=== PATIENT | female | born 1945 | race Caucasian/White ===

== ENCOUNTER 2017-02-20 16:44 | Emergency (ER) | payer MEDICARE, OTHER ==
[~2017-02-20] VITALS: Ht 147.3 cm; Wt 98.0 kg
[~2017-02-20 16:44] MED LIST: /MOXI40TA OR; ACET65TA OR; ALBU0.084 INH; ALBU2TA INH; ALBU83IN IN; ALBUTEROL INHL INH; ALLO50TA PO; ASPI81TA83 OR; BACTDSTA PO; BISO5TAB54 PO; CALC500T49 OR; COLA100C2 OR; DIAZ5TAB OR; DUONSOL IN; HYDR25TA6 OR; HYDR25TAB PO; IPRA2IN INH; MILKSUS OR; MIRA3350 PO; MULTIVIT PO; NORV5TAB OR; OMEP20CA3 PO; PERC7.5T12 PO; PRED20TA OR; PRED20TA PO; PRED20TAB PO; PRED5SOL2 PO; PULM0.5S IN; TESS100C OR; TRAM50TA2 OR; VALI5TAB PO; VITA250T PO; VITA400C29 PO; VITA400C35 PO; VITA50003 PO; VITAMIN D PO
[2017-02-20] MEDS ORDERED: VITA200016 PO (17:10)
[2017-02-20] MEDS ORDERED: NATU400T PO (17:10)
[2017-02-20] MEDS ORDERED: oxygen (17:12)
[2017-02-20] MEDS ORDERED: PERCOCET 5MG/325MG TAB PO ONE (18:00)
[2017-02-20 18:18] LABS: BASO # 0.1 K/mm3 (0.0-0.2); BASO % 0.7 % (0.0-1.0); EOS # 0.6 K/mm3 (0.0-0.50); EOS % 5.3 % (0.0-3.0); LARGE UNSTAINED CELL # 0.1 K/mm3 (0.0-0.4); LARGE UNSTAINED CELL % 1.2 % (0.0-4.0); LYMPH # 1.9 K/mm3 (1.5-4.5); LYMPH % 16.6 % (24.0-44.0); MEAN CORPUSCULAR HEMOGLOBIN 31.6 pg (27.0-33.0); MEAN CORPUSCULAR HGB CONC 33.3 g/dl (32.0-36.5); MEAN CORPUSCULAR VOLUME 94.9 fl (80.0-96.0); MONO # 0.4 K/mm3 (0.0-0.8); MONO % 3.6 % (0.0-5.0); NEUTROPHILS # 8.3 K/mm3 (1.8-7.7); NEUTROPHILS % 72.6 % (36.0-66.0); PLATELET COUNT, AUTOMATED 203 k/mm3 (150-450); WHITE BLOOD COUNT 11.4 K/mm3 (4.0-10.0)
[2017-02-20 18:23] LABS: INR 0.93
[2017-02-20 18:36] LABS: ANION GAP 6 MEQ/L (8-16); BLOOD UREA NITROGEN 22 MG/DL (7-18); CARBON DIOXIDE LEVEL 34 MEQ/L (21-32); CHLORIDE LEVEL 100 MEQ/L (98-107); CREATININE FOR GFR 0.88 MG/DL (0.55-1.02); GLOMERULAR FILTRATION RATE > 60.0 (>39); GLUCOSE, FASTING 120 MG/DL (83-110); POTASSIUM SERUM 3.6 MEQ/L (3.5-5.1); SODIUM LEVEL 140 MEQ/L (136-145); URIC ACID 9.5 MG/DL (2.6-6.0)
--- NOTE | 2017-02-20 18:50 | REPUSA ---
Clinical history: Pain, swelling. Findings: The right common femoral, superficial femoral, popliteal, and other deep venous structures compress normally and demonstrate normal color Doppler flow. Normal venous waveforms with augmentatio n are seen. Impression: No evidence of deep vein thrombosis in the right femoral popliteal venous system.
[2017-02-20 19:08] LABS: ERYTHROCYTE SEDIMENTATION RATE 3 mm/hr (0-30)
[2017-02-20 19:11] VITALS: BP 131/77
[2017-02-20] MEDS ORDERED: PERC5TAB6 PO (19:11)
[2017-02-20] MEDS ORDERED: BACT800T5 PO (19:11)
[2017-02-20] MEDS ORDERED: BACTRIM 160MG/800MG DS TAB PO ONE (19:15)
--- NOTE | 2017-02-20 19:22 | REP ---
Right foot four views: There is diffuse demineralization. There is diffuse soft tissue edema. There is no acute fracture or dislocation. There is mild osteoarthritis of the great toe MTP articulation. There are no unusual calcifications was calcaneal plantar spur. Signed by Stepan Lorenzo MD 02/20/2017 07:13 P
== END 2017-02-20 19:24 | disposition home or self-care (01) ==
LOC: M ED 19:01
DX: L03.031 Cellulitis of right toe (principal); M19.071 Primary osteoarthritis, right ankle and foot; I10 Essential (primary) hypertension; M10.00 Idiopathic gout, unspecified site; J45.909 Unspecified asthma, uncomplicated; G47.33 Obstructive sleep apnea (adult) (pediatric); E11.9 Type 2 diabetes mellitus without complications; E07.9 Disorder of thyroid, unspecified; Z91.040 Latex allergy status; Z79.899 Other long term (current) drug therapy; Z79.82 Long term (current) use of aspirin

== ENCOUNTER → 2017-03-09 | Outpatient (CLI) | payer MEDICARE, OTHER ==
[~2017-03-09] MED LIST changes: +BACT800T5 PO; +NATU400T PO; +PERC5TAB6 PO; +VITA200016 PO; +oxygen
--- NOTE | 2017-03-09 16:26 | REP ---
BILATERAL MAMMOGRAM WITH DIAGNOSTIC MAMMOGRAM RIGHT BREAST: Bilateral mammography performed in the MLO and CC projections. Additional magnification views are performed of the right breast. Comparison made with multiple prior exams, most recently 07/11/2016 mammogram of the right breast and bilateral mammogram 11/11/2015. Fibroglandular pattern is unchanged. There is no new mass. Bilateral calcifications remains stable. There are no suspicious clusters of microcalcifications. IMPRESSION: ACR 2 benign. No new mass or clustered microcalcifications. Fibroglandular pattern is stable and there are course benign appearing calcifications bilaterally, which are stable. Recommend followup mammogram in one year. BI-RADS/ACR category 2 mammogram. Benign finding(s). Routine annual screening mammography (for women over age 40). This mammogram was interpreted with the aid of an FDA-approved computer-aided detection system. The patient states she/he had a clinical breast exam in February 2017. The patient letter being requested is M1 Signed by Stepan Jeffries MD 03/09/2017 05:15 P
== END ==
LOC: M RAD 14:58
PROVIDERS: ATTEND Nurse Practitioner Family
DX: Z12.31 Encounter for screening mammogram for malignant neoplasm of breast (principal); R92.1 Mammographic calcification found on diagnostic imaging of breast

== ENCOUNTER → 2017-03-30 | Outpatient (REF) | payer MEDICARE, OTHER ==
[~2017-03-30] MED LIST changes: +PERC5TAB12 PO; -PERC5TAB6 PO; +VITA1CAP40 PO; -VITA50003 PO
== END ==
LOC: M LAB REF 16:59
PROVIDERS: ATTEND Nurse Practitioner Family
DX: M10.9 Gout, unspecified (principal)

== ENCOUNTER → 2017-04-05 | Outpatient (REF) | payer MEDICARE, OTHER | LOC: M LAB REF 13:20 | PROVIDERS: ATTEND Internal Medicine | DX: L03.115 Cellulitis of right lower limb (principal); M25.572 Pain in left ankle and joints of left foot ==

== ENCOUNTER → 2017-05-23 | Outpatient (REF) | payer MEDICARE, OTHER | LOC: M LAB REF 16:32 | PROVIDERS: ATTEND Internal Medicine | DX: M10.9 Gout, unspecified (principal) ==

== ENCOUNTER → 2017-09-04 | Outpatient (REF) | payer MEDICARE, OTHER ==
[2017-09-04 18:59] LABS: URIC ACID 9.3 MG/DL (2.6-6.0)
== END ==
LOC: M LAB REF 17:24
PROVIDERS: ATTEND Internal Medicine
DX: M10.9 Gout, unspecified (principal)

== ENCOUNTER → 2018-06-06 | Outpatient (CLI) | payer MEDICARE, OTHER | LOC: M WHC 13:21 | DX: Z12.31 Encounter for screening mammogram for malignant neoplasm of breast (principal); M81.0 Age-related osteoporosis without current pathological fracture; M85.851 Other specified disorders of bone density and structure, right thigh; M85.852 Other specified disorders of bone density and structure, left thigh | CPT/HCPCS: 77067 ==

== ENCOUNTER 2018-10-17 13:50 | Emergency (ER) | payer MEDICARE, OTHER ==
[~2018-10-17 13:50] MED LIST changes: -VITA1CAP40 PO; +VITA50005 PO
--- NOTE | 2018-10-17 14:53 | REP ---
Clinical: Tachycardia. Comparison: 01/08/2014. Findings: Stable cardiomegaly and chronic interstitial changes again noted. Trace right basilar atelectasis cannot be excluded. No obvious effusion. No pneumothorax. Skeletal structures intact. Impression: Chronic changes similar to prior examination. Trace right basilar atelectasis cannot be excluded. Electronically Signed by Baltazar Palmer MD 10/17/2018 02:45 P
[2018-10-17 14:54] LABS: HEMATOCRIT 51.8 % (36.0-47.0); HEMOGLOBIN 16.5 g/dl (12.0-15.5); MEAN CORPUSCULAR HEMOGLOBIN 30.7 pg (27.0-33.0); MEAN CORPUSCULAR HGB CONC 31.9 g/dl (32.0-36.5); MEAN CORPUSCULAR VOLUME 96.5 fl (80.0-96.0); PLATELET COUNT, AUTOMATED 204 10^3/uL (150-450); RED BLOOD COUNT 5.37 10^6/uL (4.00-5.40); WHITE BLOOD COUNT 12.1 10^3/uL (4.0-10.0)
[2018-10-17 15:17] LABS: BLOOD UREA NITROGEN 16 MG/DL (7-18); CALCIUM LEVEL 8.7 MG/DL (8.8-10.2); CARBON DIOXIDE LEVEL 33 MEQ/L (21-32); CHLORIDE LEVEL 105 MEQ/L (98-107); CPK CREATINE PHOSPHOKINASE 69 U/L (26-192); CREATININE FOR GFR 0.85 MG/DL (0.55-1.30); GLOMERULAR FILTRATION RATE > 60.0 (>39); GLUCOSE, FASTING 120 MG/DL (70-100); MB/CK RELATIVE INDEX 2.61 (< OR =4); POTASSIUM SERUM 4.3 MEQ/L (3.5-5.1); SODIUM LEVEL 143 MEQ/L (136-145); TROPONIN I < 0.02 NG/ML (< 0.10)
[2018-10-17] MEDS ORDERED: ELIQ5TAB PO (15:53)
[2018-10-17] MEDS ORDERED: APIXABAN 5 MG TAB (ELIQUIS) PO ONE (16:00)
[2018-10-17 17:44] VITALS: BP 146/73
--- NOTE | 2018-10-18 10:17 | ECGEPIP ---
Stationary ECG Study [facility] - ED Test Date: 2018-10-17 Pat Name: ANETA DE SANTIAGO Department: Room: - Gender: F Front Office Coordinator: dany : 1945 Requested By: Jorge Luis oHbbs Order Number: [id number] Reading MD: Albina Dias Measurements Intervals [place] Rate: 94 P: CO: 0 QRS: 103 QRSD: 79 T: -12 QT: 331 QTc: 416 Interpretive Statements ATRIAL FIBRILLATION MARKED RIGHT AXIS DEVIATION LOW QRS VOLTAGE IN PRECORDIAL LEADS NONSPECIFIC T-WAVE ABNORMALITY SIMILAR 09/25/13 Electronically Signed On 10-18-2018 10:17:40 EST by Albina Dias
== END 2018-10-17 17:45 | disposition home or self-care (01) ==
LOC: EDBD 13:50 → M ED 13:50
DX: I48.91 Unspecified atrial fibrillation (principal); F41.9 Anxiety disorder, unspecified; I10 Essential (primary) hypertension; G47.33 Obstructive sleep apnea (adult) (pediatric); E11.9 Type 2 diabetes mellitus without complications; M10.9 Gout, unspecified; F17.210 Nicotine dependence, cigarettes, uncomplicated; Z91.040 Latex allergy status; Z79.899 Other long term (current) drug therapy

== ENCOUNTER 2018-10-20 10:30 | Emergency (ER) | payer MEDICARE, OTHER ==
[~2018-10-20] VITALS: Ht 147.3 cm; Wt 93.3 kg
[~2018-10-20 10:30] MED LIST changes: +ELIQ5TAB PO
[2018-10-20 11:17] LABS: BASO # 0.1 10^3/uL (0.0-0.2); BASO % 0.6 % (0.0-1.0); EOS # 0.5 10^3/uL (0.0-0.50); EOS % 4.2 % (0.0-3.0); HEMATOCRIT 52.1 % (36.0-47.0); LYMPH # 1.9 10^3/uL (1.5-4.5); LYMPH % 16.9 % (24.0-44.0); MEAN CORPUSCULAR HEMOGLOBIN 31.1 pg (27.0-33.0); MEAN CORPUSCULAR HGB CONC 32.6 g/dl (32.0-36.5); MEAN CORPUSCULAR VOLUME 95.4 fl (80.0-96.0); MONO # 0.5 10^3/uL (0.0-0.8); MONO % 4.4 % (0.0-5.0); NEUTROPHILS # 8.1 10^3/uL (1.8-7.7); NEUTROPHILS % 73.6 % (36.0-66.0); PLATELET COUNT, AUTOMATED 195 10^3/uL (150-450); RED BLOOD COUNT 5.46 10^6/uL (4.00-5.40)
[2018-10-20] MEDS ORDERED: ALBUTEROL SULFATE 2.5 MG/0.5 ML INH NEB SOLN NEB ONE (11:30)
[2018-10-20 11:32] LABS: BLOOD UREA NITROGEN 15 MG/DL (7-18); CALCIUM LEVEL 8.7 MG/DL (8.8-10.2); CARBON DIOXIDE LEVEL 31 MEQ/L (21-32); CHLORIDE LEVEL 103 MEQ/L (98-107); CPK CREATINE PHOSPHOKINASE 66 U/L (26-192); CREATININE FOR GFR 1.01 MG/DL (0.55-1.30); GLOMERULAR FILTRATION RATE 56.9 (>39); GLUCOSE, FASTING 160 MG/DL (70-100); MB/CK RELATIVE INDEX 2.73 (< OR =4); POTASSIUM SERUM 3.7 MEQ/L (3.5-5.1); SODIUM LEVEL 140 MEQ/L (136-145); TROPONIN I < 0.02 NG/ML (< 0.10)
--- NOTE | 2018-10-20 12:07 | REP ---
Clinical: Cough and wheeze. Technique: PA and lateral. Comparison: 10/17/2018. Findings: Stable cardiomegaly is appreciated. Previously noted right basilar atelectasis appears to have resolved although new areas of medial right middle lobe and left mid to lower lobe atelectasis are now identified. No effusion. No pneumothorax. Skeletal structures intact. Impression: Right middle lobe and left mid lung zone atelectasis. Electronically Signed by Baltazar Palmer MD 10/20/2018 11:59 A
[2018-10-20] MEDS ORDERED: PERCOCET 5MG/325MG TAB PO ONE (13:00)
[2018-10-20] MEDS ORDERED: METO1TAB87 PO (14:14)
[2018-10-20 14:29] VITALS: BP 144/92
[2018-10-20] MEDS ORDERED: METOPROLOL TART 25 MG TABLET PO ONE (14:30)
[2018-10-20 14:52] LABS: FERRITIN 38 NG/ML (8-252)
[2018-10-20 15:44] VITALS: BP 130/90
--- NOTE | 2018-10-21 07:20 | ECGEPIP ---
Stationary ECG Study [facility] - ED Test Date: 2018-10-20 Pat Name: ANETA DE SANTIAGO Department: Room: - Gender: F Corn Breeder: BEATRIZ : 1945 Requested By: Albina Dias Order Number: [id number] Reading MD: Albina Dias Measurements Intervals [place] Rate: 96 P: IA: 0 QRS: 105 QRSD: 81 T: -5 QT: 346 QTc: 439 Interpretive Statements ATRIAL FIBRILLATION MARKED RIGHT AXIS DEVIATION NONSPECIFIC T-WAVE ABNORMALITY SIMILAR 10/17/18 Electronically Signed On 10-21-2018 7:20:36 EST by Albina Dias
== END 2018-10-20 15:46 | disposition home or self-care (01) ==
LOC: M ED 10:30
DX: I48.91 Unspecified atrial fibrillation (principal); E11.9 Type 2 diabetes mellitus without complications; I10 Essential (primary) hypertension; J44.9 Chronic obstructive pulmonary disease, unspecified; Z91.040 Latex allergy status; Z79.899 Other long term (current) drug therapy

== ENCOUNTER → 2018-12-12 | Outpatient (REF) | payer MEDICARE, OTHER ==
[~2018-12-12] MED LIST changes: +ALBU2TA PO; +ALBU83IN INH; +ASCO25TA PO; +HYDR12.55 PO; +METO1TAB87 PO
--- NOTE | 2018-12-12 20:15 | CR ---
DATE OF CONSULTATION: 12/12/[address] Polanco for hysteroscopy, dilatation and curettage 12/20/[address] [facility] ([facility]). Dear Dr. Polanco, Thank you for asking me to see Ms. Aracelis Pollard in preoperative consultation prior to her hysteroscopy and dilatation and curettage. Ms. Pollard is a 73-year-old female with recent diagnosis of atrial fibrillation with longstanding history of anxiety, osteoarthritis, presenting for preoperative consultation. The patient reports that she is in constant full body pain, fatigue, hot alternating with cold. She reports this is not a change. She questions whether it could be related to some of her medications. The patient had recent diagnosis of atrial fibrillation. She is tolerating Eliquis without issue. She denies chest pain or palpitations. She is quite inactive because of her advanced osteoarthritis. The patient has known chronic obstructive pulmonary disease (COPD). Uses ProAir and albuterol as needed. Usually takes it every morning. Patient has anxieties, treated with diazepam 5 mg three times a day. The patient has osteoarthritis and uses Percocet, averaging two to three a day. The patient has hypertension and reports compliance with hydrochlorothiazide The patient reports recent bouts of diverticulitis requiring antibiotic therapy. The patient otherwise denies fevers or chills, chest pain or shortness of breath, nausea, vomiting, change in bowels. PAST MEDICAL HISTORY: 1. Atrial fibrillation, status post echo 11/08/2018, showing no significant valvular disease but bilateral atrial enlargement. 2. Generalized anxiety disorder. 3. Vitamin D deficiency. 4. Allergic rhinitis. 5. Osteoarthritis (OA), degenerative joint disease (DJD). 6. Hypertension. 7. COPD. 8. Osteoporosis. 9. Obesity. 10. Tobacco abuse. 11. Prediabetes. 12. Left ankle fracture in 1975. 13. Left hand fracture in 1995. 14. Umbilical herniorrhaphy. 15. Status post appendectomy. 16. Bilateral carpal tunnel repair. 17. Benign neck tumor excision times two. 18. Bilateral tubal ligation. MEDICATIONS: - albuterol nebulizer as needed - gentle laxative daily - diazepam 5 mg three times a day - Eliquis 5 mg twice a day - hydrochlorothiazide 25 mg daily - magnesium 500 mg daily - metoprolol tartrate 25 mg two times a day - oxycodone/acetaminophen 7.5 mg three times a day as needed - ProAir as needed - stool softener as needed - vitamin C daily - vitamin D3 at 2000 international units daily - vitamin E at 400 international units daily - Zovirax as needed DRUG ALLERGIES: BREO ELLIPTA and Latex. 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 . Four sons, two in the area. Enjoys reading, baking, cooking. Current smoker. Denies alcohol use. PHYSICAL EXAMINATION: Obese female in no acute distress. VITAL SIGNS: Weight 200 pounds with a body mass index (BMI) 42. Her oxygen saturation is 89% after exertion, 92% at rest, blood pressure 132/80. HEENT: Head is normocephalic. Pupils equal, reactive to light. Extraocular movements are intact. Tympanic membranes slightly dull, scant amount of cerumen. Posterior pharynx without inflammation. Neck is supple. No thyromegaly, jugular venous distention (JVD), or carotid bruits. RESPIRATORY: Coarse breath sounds. No expiratory wheezes. BREASTS: Deferred. CARDIOVASCULAR: Irregularly irregular. Soft systolic murmur. ABDOMEN: Protuberant, soft, nontender. EXTREMITIES: Arthritic but no cyanosis, clubbing, or edema. DERMATOLOGIC: Intact. NEUROLOGIC: Alert and oriented. LABORATORY DATA: EKG today shows atrial fibrillation, rate controlled at 80, axis of 90. Normal QRS, QTC. LABORATORY DATA: Shows uric acid of 8.5. A CBC with a white count of 11.7, hemoglobin of 17, platelet count of 216. A1c of 6.1. Magnesium of 1.6. Otherwise normal metabolic profile, electrolytes. Normal liver panel, thyroid. FAMILY HISTORY: Father father had hypertension and kidney failure. Mother had lung cancer. Siblings alive and well. IMPRESSION: Ms. Aracelis Pollard is a 73-year-old female with multiple cardiovascular risk factors, including hypertension, hyperglycemia, atrial fibrillation, obesity. Has no signs or symptoms indicative of cardiovascular ischemia and is felt to be at low risk for cardiovascular complications and is optimized for the proposed surgical intervention. Risks can be further minimized by the following. 1. Paroxysmal atrial fibrillation. Hold Eliquis 48 hours before surgery. Take metoprolol morning of surgery. 2. Generalized anxiety disorder. Take diazepam as usual morning of surgery. 3. Osteoarthritis (OA), degenerative joint disease (DJD). Take Percocet as usual morning of surgery. 4. Chronic obstructive pulmonary disease (COPD) Take albuterol nebulizer morning of surgery. 5. Hypertension. Hold hydrochlorothiazide morning of surgery 6. Prediabetes. Dietary advice given. Adequately controlled with an A1c of 6.1. 7. Vitamin D deficiency. Hold morning of surgery. 8. Obesity. Dietary advice discussed. 9. Nicotine abuse. Cessation discussed. 10. Hypomagnesemia. Will confirm compliance with magnesium disorder and give dietary advice. 11. Gout. Discuss in outpatient at next visit in December. Thank you very much for this consultation. Please call with any questions or concerns.
== END ==
LOC: M LAB REF 16:36
PROVIDERS: ATTEND Internal Medicine
DX: M10.9 Gout, unspecified (principal)

== ENCOUNTER 2018-12-20 11:19 | Day surgery (SDC) | payer MEDICARE, OTHER ==
[~2018-12-20] VITALS: Ht 147.3 cm; Wt 75.3 kg
[~2018-12-20 11:19] MED LIST changes: -/MOXI40TA OR; -ASCO25TA PO; +AVEL1TAB2 OR; -BACTDSTA PO; +HYDR-2541 PO; -HYDR25TAB PO; +SULF1TAB23 PO; +VITA1TAB23 PO
[2018-12-20] MEDS: LR 1,000 ML IV SCH ×2 (11:25→12:25)
[2018-12-20] MEDS ORDERED: PROAAER10 INH (12:45)
[2018-12-20] MEDS ORDERED: dexameTHASONE 4 MG/ML 1ML VIAL (J1100) As Ordered ONE (14:00)
[2018-12-20] MEDS ORDERED: fentaNYL 100 MCG/2 ML INJECTION (J3010) As Ordered ONE (14:00)
[2018-12-20] MEDS ORDERED: MIDAZOLAM INJ 2 MG/2 ML VIAL (J2250) As Ordered ONE (14:00)
[2018-12-20] MEDS ORDERED: METOCLOPRAMIDE INJ 10MG/2ML VIAL (J2765) As Ordered ONE (14:00)
[2018-12-20] MEDS ORDERED: LIDOCAINE 2% INJ 100 MG/5 ML SDV (FOR ANES.) As Ordered ONE (14:00)
[2018-12-20] MEDS ORDERED: PROPOFOL 200 MG/20 ML VIAL As Ordered ONE (14:00)
[2018-12-20] MEDS ORDERED: ONDANSETRON 4MG/2ML VIAL (J2405) As Ordered ONE (14:00)
[2018-12-20] MEDS: PERCOCET 5MG/325MG TAB PO PRN ×2 (14:45→15:20)
[2018-12-20] MEDS ORDERED: PERCOCET 5MG/325MG TAB As Ordered ONE (14:45)
[2018-12-20] MEDS ORDERED: KETOROLAC 30 MG/ML VIAL (J1885) As Ordered ONE (14:45)
[2018-12-20] MEDS ORDERED: LR 1,000 ML IV SCH ×2 (15:00)
[2018-12-20] MEDS ORDERED: KETOROLAC 30 MG/ML VIAL (J1885) IV PRN (15:00)
[2018-12-20] MEDS ORDERED: ONDANSETRON 4MG/2ML VIAL (J2405) IV PRN (15:00)
[2018-12-20] MEDS ORDERED: fentaNYL 100 MCG/2 ML INJECTION (J3010) IV PRN (15:00)
[2018-12-20] MEDS ORDERED: DESFLURANE 240 ML INHALANT As Ordered ONE (15:09)
--- NOTE | 2018-12-20 17:09 | RO ---
DATE OF PROCEDURE: 12/20/2018 PREOPERATIVE DIAGNOSIS: Thickened endometrium, abnormal ultrasound. POSTOPERATIVE DIAGNOSIS: Thickened endometrium, abnormal ultrasound. PROCEDURE: Dilation and curettage (D and C), hysteroscopy and MyoSure resection. SURGEON: Dr. Tamera Polanco FEDERAL MEDIATION COMMISSIONER: None. ANESTHESIA: LMA. DESCRIPTION OF PROCEDURE: Aracelis was brought to the operating room where sufficient LMA anesthesia was induced, and she was prepped, draped and positioned in the usual sterile fashion and then a stenotic cervix was noted. She had small nabothian cysts in the cervix but then some cervical stenosis, we could not pass the sound, so we worked with the smaller dilators until we had carefully dilated the cervix and then some mucousy-brownish discharge was released, and we entered into the endometrium with the dilators and continued dilating until we could place the hysteroscope and most of the lining looked fairly atrophic. There were a couple of little cholesterol deposits, but there were also one or two more vesicular mucous lesions, did not look like a lot of overgrowth and you certainly can see that when it is just under pressure from obstruction, but also this could have been mucous-producing lesion, so went ahead and took the MyoSure light and made sure we sampled all of that and removed those and sent them with the pathology so that we could be sure that we had good sampling. We then also passed the curette. The contour itself showed some evidence possibly of a little bit of scarring but otherwise normal endometrial contour, normal tubal ostia and the pictures were taken to document the fairly minor findings, but given the mucus discharge and the abnormal sonographic findings, we went ahead and aggressively sampled all of this and made sure we had good sampling and pictures to show also that all that had been removed and we sent all of that to the pathologist for evaluation. After the MyoSure resection and curettage, the procedure was ended. Estimated blood loss for the procedure was 2 mL. Fluid replacement: Crystalloid. Complications: None. Condition and Disposition: Aracelis tolerated the procedure well and was recovering in the recovery room in good condition.
[2018-12-20 17:48] VITALS: BP 129/58
[2018-12-20] MEDS ORDERED: IBUPROFEN 600 MG TAB PO PRN (21:00)
== END 2018-12-20 17:48 | disposition home or self-care (01) ==
LOC: M SDC 11:19
PROVIDERS: ATTEND Obstetrics & Gynecology
DX: N84.0 Polyp of corpus uteri (principal); N88.8 Other specified noninflammatory disorders of cervix uteri; Z91.040 Latex allergy status; Z88.8 Allergy status to other drugs, medicaments and biological substances
CPT/HCPCS: 58558; 88304; J1100; J1885; J2250; J2405; J2765; J3010

== ENCOUNTER 2020-02-23 14:40 | Emergency (ER) | payer MEDICARE, OTHER ==
[~2020-02-23] VITALS: Ht 147.3 cm; Wt 90.0 kg
[~2020-02-23 14:40] MED LIST changes: -ALBU83IN INH; +ALBU83IN NEB; +ASCO250T20 PO; +PROAAER10 INH; -VITA1TAB23 PO
[2020-02-23 16:25] LABS: BASO # 0.1 10^3/uL (0.0-0.2); BASO % 0.4 % (0.0-1.0); EOS # 0.2 10^3/uL (0.0-0.5); EOS % 1.3 % (0.0-3.0); HEMATOCRIT 44.2 % (36.0-47.0); HEMOGLOBIN 13.6 g/dl (12.0-15.5); LYMPH # 1.2 10^3/uL (1.5-5.0); LYMPH % 9.1 % (24.0-44.0); MEAN CORPUSCULAR HEMOGLOBIN 30.8 pg (27.0-33.0); MEAN CORPUSCULAR HGB CONC 30.8 g/dl (32.0-36.5); MEAN CORPUSCULAR VOLUME 100.2 fl (80.0-96.0); MONO # 0.9 10^3/uL (0.0-0.8); MONO % 6.6 % (0.0-5.0); NEUTROPHILS # 10.7 10^3/uL (1.5-8.5); NEUTROPHILS % 82.2 % (36.0-66.0); PLATELET COUNT, AUTOMATED 183 10^3/uL (150-450); RED BLOOD COUNT 4.41 10^6/uL (4.00-5.40)
[2020-02-23 16:45] LABS: ERYTHROCYTE SEDIMENTATION RATE 25 mm/hr (0-30)
[2020-02-23 16:51] LABS: BLOOD UREA NITROGEN 17 MG/DL (7-18); C REACTIVE PROTEIN QUANTITATIV 4.54 MG/DL (0.00-0.30); CALCIUM LEVEL 8.2 MG/DL (8.8-10.2); CARBON DIOXIDE LEVEL 39 MEQ/L (21-32); CHLORIDE LEVEL 101 MEQ/L (98-107); CREATININE FOR GFR 0.62 MG/DL (0.55-1.30); GLOMERULAR FILTRATION RATE > 60.0 (>39); GLUCOSE, FASTING 103 MG/DL (70-100); POTASSIUM SERUM 3.8 MEQ/L (3.5-5.1); SODIUM LEVEL 144 MEQ/L (136-145); URIC ACID 7.8 MG/DL (2.6-6.0)
[2020-02-23] MEDS ORDERED: predniSONE 20 MG TAB PO ONE (17:15)
[2020-02-23] MEDS ORDERED: PRED20TA PO (17:29)
[2020-02-23 17:54] VITALS: BP 156/73
--- NOTE | 2020-02-24 13:17 | REP ---
DEEP VENOUS ULTRASOUND LEFT UPPER EXTREMITY: REASON: Pain and swelling. Preliminary report given by Dr. Palmer. TECHNIQUE: Multiple ultrasonographic images of the deep venous structures of the left upper extremity were obtained to rule out deep venous thrombosis. FINDINGS: There is no abnormal echogenic material seen in any of the visualized deep venous structures of the left upper extremity. Coaptation where applicable is appropriate throughout. Augmentation shows an expected response throughout. IMPRESSION: Negative exam. Electronically Signed by Alok Killian DO 02/24/2020 03:18 P
--- NOTE | 2020-02-24 16:31 | REP ---
REASON: Left hand pain and swelling, no trauma. Preliminary report given by Dr. Palmer. The bones are demineralized. Degenerative changes are seen throughout the hand and wrist. There is evidence of diffuse soft tissue swelling, however, I do not know the patient's body habitus. I see no evidence of an acute fracture. IMPRESSION: Degenerative changes seen involving the hand and particularly the wrist without evidence of an acute fracture. Other findings as described above. Electronically Signed by Alok Killian DO 02/24/2020 05:06 P
[2020-10-18] MEDS ORDERED: HYDR-3490 PO (03:03)
== END 2020-02-23 17:56 | disposition home or self-care (01) ==
LOC: M ED 14:40
DX: M19.042 Primary osteoarthritis, left hand (principal); M79.89 Other specified soft tissue disorders; I48.91 Unspecified atrial fibrillation; E11.9 Type 2 diabetes mellitus without complications; I10 Essential (primary) hypertension; J44.9 Chronic obstructive pulmonary disease, unspecified; G47.33 Obstructive sleep apnea (adult) (pediatric); E55.9 Vitamin D deficiency, unspecified; M10.9 Gout, unspecified; F41.9 Anxiety disorder, unspecified; E66.9 Obesity, unspecified; Z68.41 Body mass index [BMI] 40.0-44.9, adult; M81.0 Age-related osteoporosis without current pathological fracture; Z91.040 Latex allergy status; Z91.048 Other nonmedicinal substance allergy status; Z79.899 Other long term (current) drug therapy; Z79.01 Long term (current) use of anticoagulants

== ENCOUNTER 2020-05-27 07:02 | Inpatient (IN) | payer MEDICARE, OTHER ==
[~2020-05-27] VITALS: Ht 147.3 cm; Wt 85.1 kg
[2020-05-27] MEDS ORDERED: methylPREDNISolone 125MG 2ML VIAL IV ONE (07:45)
[2020-05-27] MEDS ORDERED: COMBIVENT RESPIMAT 100-20MCG INHALER 4GM INH ONE ×2 (08:00→09:00)
[2020-05-27 08:03] LABS: BASO # 0.1 10^3/uL (0.0-0.2); BASO % 0.4 % (0.0-1.0); EOS # 0.2 10^3/uL (0.0-0.5); EOS % 1.3 % (0.0-3.0); HEMATOCRIT 43.7 % (36.0-47.0); HEMOGLOBIN 13.5 g/dl (12.0-15.5); LYMPH # 1.1 10^3/uL (1.5-5.0); LYMPH % 9.5 % (24.0-44.0); MEAN CORPUSCULAR HEMOGLOBIN 31.3 pg (27.0-33.0); MEAN CORPUSCULAR HGB CONC 30.9 g/dl (32.0-36.5); MEAN CORPUSCULAR VOLUME 101.4 fl (80.0-96.0); MONO # 0.6 10^3/uL (0.0-0.8); MONO % 4.9 % (0.0-5.0); NEUTROPHILS # 9.8 10^3/uL (1.5-8.5); NEUTROPHILS % 83.4 % (36.0-66.0); PLATELET COUNT, AUTOMATED 181 10^3/uL (150-450); RED BLOOD COUNT 4.31 10^6/uL (4.00-5.40); WHITE BLOOD COUNT 11.7 10^3/uL (4.0-10.0)
[2020-05-27 08:07] LABS: ABG BASE EXCESS 7.9 (-2.0-2.0); ABG HCO3 34.6 MEQ/L (22.0-26.0); ABG O2 SATURATION 98.9 % (95.0-99.0); ABG PARTIAL PRESSURE CO2 56.9 mmHg (35.0-45.0); ABG PARTIAL PRESSURE O2 131.8 mmHg (75.0-100.0); ABG STANDARD HCO3 31.8 MEQ/L (22.0-26.0); ABG TOTAL CO2 36.4 MEQ/L (23.0-31.0); ABG pH (ARTERIAL) 7.402 UNITS (7.350-7.450)
[2020-05-27 08:14] LABS: INR 1.28; PROTHROMBIN TIME 16.2 SECONDS (11.8-14.0)
--- NOTE | 2020-05-27 08:16 | REPVR ---
PROCEDURE INFORMATION: Exam: XR Chest, 1 View Exam date and time: 05/27/2020 7:19 AM Age: 75 years old Clinical indication: Shortness of breath; Additional info: Dyspnea/cough TECHNIQUE: Imaging protocol: XR of the chest Views: 1 view. COMPARISON: CR Chest, 2 view PA, Lat 10/20/2018 11:49 AM FINDINGS: Lungs: Mild pulmonary vascular congestion. Band of subsegmental atelectasis/scar within the left mid lung. Increasing hazy ground-glass and ill-defined opacity at the lung bases which may represent edema, atelectasis and/or pneumonia. Pleural space: Small bilateral pleural effusions. No pneumothorax. Heart/Mediastinum: Stable cardiomegaly. Thoracic atherosclerosis. Bones/joints: Bones are stable. Osteopenia. Degenerative changes. IMPRESSION: 1. Cardiomegaly with pulmonary vascular congestion and small bilateral pleural effusions suggesting CHF. 2. Increasing hazy ground-glass and ill-defined opacity at the lung bases may represent edema, atelectasis and/or pneumonia. Electronically signed by: Baltazar Berumen On 05/27/2020 08:15:44 AM
[2020-05-27] MEDS ORDERED: FUROSEMIDE 40MG/4ML VIAL (J1940) IV ONE (08:30)
[2020-05-27] MEDS ORDERED: PERCOCET 5MG/325MG TAB PO ONE (08:30)
[2020-05-27 08:32] LABS: ALBUMIN 3.3 GM/DL (3.2-5.2); ALT/SGPT 11 U/L (12-78); BILIRUBIN,DIRECT 0.4 MG/DL (0.0-0.2); BILIRUBIN,TOTAL 1.1 MG/DL (0.2-1.0); BLOOD UREA NITROGEN 15 MG/DL (7-18); CARBON DIOXIDE LEVEL 42 MEQ/L (21-32); CHLORIDE LEVEL 98 MEQ/L (98-107); CK-MB VALUE MASS 1.1 NG/ML (<3.6); CPK CREATINE PHOSPHOKINASE 32 U/L (26-192); CREATININE FOR GFR 0.69 MG/DL (0.55-1.30); GLOMERULAR FILTRATION RATE > 60.0 (>39); GLUCOSE, FASTING 118 MG/DL (70-100); MB/CK RELATIVE INDEX 3.44 (< OR =4); NT-PRO BNP 2410 PG/ML (<450); POTASSIUM SERUM 3.8 MEQ/L (3.5-5.1); SODIUM LEVEL 142 MEQ/L (136-145); TOTAL PROTEIN 6.5 GM/DL (6.4-8.2); TROPONIN I < 0.02 NG/ML (< 0.10)
[2020-05-27] MEDS: METOPROLOL TART 25 MG TABLET PO SCH ×2 (09:00→20:28)
[2020-05-27] MEDS ORDERED: METOPROLOL TART 25 MG TABLET PO ONE (09:15)
[2020-05-27] MEDS ORDERED: METO1TAB87 PO (09:35)
[2020-05-27] MEDS ORDERED: PERC7.5T11 PO (09:35)
[2020-05-27] MEDS ORDERED: ASCO500T PO (09:35)
[2020-05-27] MEDS ORDERED: VITA400C53 PO (09:35)
[2020-05-27] MEDS ORDERED: D31000TA2 PO (09:35)
[2020-05-27] MEDS ORDERED: ELIQ5TAB PO (09:35)
[2020-05-27] MEDS ORDERED: MAGN400C2 PO (09:44)
[2020-05-27] MEDS ORDERED: IPRATROPIUM 0.5MG/ALBUTEROL 2.5MG INH SOL UD 3ML (DUONEB) NEB PRN (11:30)
--- NOTE | 2020-05-27 11:52 | HPEPDOC ---
[facility] Medical History & Physical Date of Admission May 27, 2020 Date of Service: May 27, 2020 History and Physical Chief Complaints : Sob History of present illness: This a a elderly lady with relevant past medical history of COPD, chronic active smoker , 3 packs per day for the last 40 years, come to the hospital with pr ogressive dyspnea even to minimal exertion. She denies any increase in her cough but states that she has chronic cough for a long time now. She tried to quit smoking 3 days back as her dyspnea has gotton worse. She denies any sick contacts, fevers, rigors or chills. States that she has no chest pain, and has notices mild ankle edema. She denies any travel , or any exposure to COVID 19. She does not remenber her last echo or PFT results but states that both have been done with in 1 year. Denies any headaches , blurry vision. chest pain. The patient had diagnosis of atrial fibrillation. She is tolerating Eliquis without issue. Also she is quite inactive because of her advanced osteoarthritis. She Uses ProAir and albuterol as needed. Uses home o2 27 x 7. Usually takes it every morning. Patient has anxieties, treated with diazepam 5 mg three times a day. The patient has osteoarthritis and uses Percocet, averaging two to three a day. PAST MEDICAL HISTORY: 1. Atrial fibrillation, status post echo 11/08/2018, showing no significant valvular disease but bilateral atrial enlargement. 2. Generalized anxiety disorder. 3. Vitamin D deficiency. 4. Allergic rhinitis. 5. Osteoarthritis (OA), degenerative joint disease (DJD). 6. Hypertension. 7. COPD. 8. Osteoporosis. 9. Obesity. 10. Tobacco abuse. 11. Prediabetes. 12. Left ankle fracture in 1975. 13. Left hand fracture in 1995. 14. Umbilical herniorrhaphy. 15. Status post appendectomy. 16. Bilateral carpal tunnel repair. 17. Benign neck tumor excision times two. 18. Bilateral tubal ligation. MEDICATIONS: - albuterol nebulizer as needed - gentle laxative daily - diazepam 5 mg three times a day - Eliquis 5 mg twice a day - hydrochlorothiazide 25 mg daily - magnesium 500 mg daily - metoprolol tartrate 25 mg two times a day - oxycodone/acetaminophen 7.5 mg three times a day as needed - ProAir as needed - stool softener as needed - vitamin C daily - vitamin D3 at 2000 international units daily - vitamin E at 400 international units daily - Zovirax as needed DRUG ALLERGIES: BREO ELLIPTA and Latex. 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 . Four sons, two in the area. Enjoys reading, baking, cooking. Current smoker. Denies alcohol use. FAMILY HISTORY: Father father had hypertension and kidney failure. Mother had lung cancer. PHYSICAL EXAMINATION: Obese female in no acute distress lying comfortably on bed. Her oxygen saturation is 94 % on 3 l ,blood pressure 122/80. HR 84 HEENT: Head is normocephalic. Pupils equal, reactive to light. Extraocular movements are intact. Neck is supple. No thyromegaly, jugular venous distention (JVD), or carotid bruits. RESPIRATORY: Coarse breath sounds. Mild expiratory wheezes. BREASTS: Deferred. CARDIOVASCULAR: Irregularly irregular. Soft systolic murmur. ABDOMEN: Protuberant, soft, nontender. EXTREMITIES: Arthritic but no cyanosis, clubbing, or edema. DERMATOLOGIC: Intact. NEUROLOGIC: Alert and oriented. LABORATORY DATA: Reviewed Assessment and plan : Ms. Aracelis Pollard is a 75-year-old female currently admitted fro COPD excerbation. 1. COPD exacerbation . Likely smoking related. Cont supplemental o2 to maintain sats above 92. Solumedrol 40 bid. Duo nebs as needed and scheduled q6. She will require to be on both LABA and LAMA on DC . counselled in detail for smoke sessation Azitho iv 500 for 4 days. COVID negative. Also she has 1 + pedal edema and this could be related to high PA pressures. 2D echo has been ordered. Will give one dose of 20 lasix. ABG reviewed. 2. Paroxysmal atrial fibrillation. Cont Eliquis and home metoprolol. 3. Osteoarthritis (OA), degenerative joint disease (DJD). Cont Percocet 4. HTN : continue hydrochlorothiazide morning of surgery Expected LOS less then two mid nights. Vital Signs Vital Signs Date Time Temp Pulse Resp B/P (MAP) Pulse Ox O2 Delivery O2 Flow Rate FiO2 05/27/20 09:22 22 05/27/20 09:20 116 153/66 05/27/20 07:25 Nasal Cannula 2.0 05/27/20 07:17 97.8 93 Laboratory Data Labs 24H Laboratory Tests 2 05/27/20 07:42: Immature Granulocyte % (Auto) 0.5, Neutrophils (%) (Auto) 83.4H, Lymphocytes (%) (Auto) 9.5L, Monocytes (%) (Auto) 4.9, Eosinophils (%) (Auto) 1.3, Basophils (%) (Auto) 0.4, Neutrophils # (Auto) 9.8H, Lymphocytes # (Auto) 1.1L, Monocytes # (Auto) 0.6, Eosinophils # (Auto) 0.2, Basophils # (Auto) 0.1, Nucleated Red Blood Cells % (auto) 0.0, Prothrombin Time 16.2H, Prothromb Time International Ratio 1.28, Anion Gap 2L, Glomerular Filtration Rate > 60.0, Calcium Level 9.0, Total Bilirubin 1.1H, Direct Bilirubin 0.4H, Aspartate Amino Transf (AST/SGOT) 10, Alanine Aminotransferase (ALT/SGPT) 11L, Alkaline Phosphatase 79, Total Creatine Kinase 32, Creatine Kinase MB 1.1, Creatine Kinase MB Relative Index 3.44, Troponin I < 0.02, IB-Ath-U-Type Natriuretic Peptide 2410H, Total Protein 6.5, Albumin 3.3, Albumin/Globulin Ratio 1.0L 05/27/20 07:44: Blood Gas Bicarbonate Standard 31.8H, Arterial Blood pH 7.402, Arterial Blood Partial Pressure CO2 56.9H, Arterial Blood Partial Pressure O2 131.8H, Arterial Blood Total CO2 36.4H, Arterial Blood HCO3 34.6H, Arterial Blood Base Excess 7.9H, Arterial Blood Oxygen Saturation 98.9 CBC/BMP Laboratory Tests 05/27/20 07:42 Microbiology Microbiology 05/27/20 Blood Culture, Received Pending 05/27/20 Respiratory Virus Panel (PCR) (TONG) - Final, Complete 05/27/20 Blood Culture, Received Pending Home Medications Scheduled Apixaban (Eliquis) 5 Mg Tablet, 5 MG PO BID Ascorbic Acid (Ascorbic Acid) 500 Mg Tablet, 500 MG PO DAILY Cholecalciferol (Vitamin D3) (Vitamin D3) 1,000 Unit Tablet, 2,000 UNITS PO DAILY Diazepam (Valium) 5 Mg Tab, 5 MG PO TID Hydrochlorothiazide (Hydrochlorothiazide) 12.5 Mg Tab, 25 MG PO DAILY Magnesium Oxide (Magnesium) 400 Mg Capsule, 400 MG PO DAILY Metoprolol Tartrate (Metoprolol Tartrate) 25 Mg Tablet, 25 MG PO BID Vitamin E (Vitamin E) 400 Unit Capsule, 400 UNIT PO DAILY Scheduled PRN Albuterol Sulf (Albuterol Sulfate) 2.5 Mg/3 Ml Nebu, 2.5 MG INH Q4H PRN for SOB/WHEEZING Albuterol Sulfate (Proair Hfa) 108 Mcg/Act Aer, 2 PUFF INH QID PRN for SHORTNESS OF BREATH Oxycodone HCl/Acetaminophen (Percocet 7.5-325 mg Tablet) 1 Each Tablet, 1 TAB PO TID PRN for PAIN Allergies Coded Allergies: adhesive tape (Verified Allergy, Intermediate, RASH, 12/20/18) latex (Verified Allergy, Intermediate, RASH, 12/20/18) A-FIB/CHADSVASC A-FIB History Current/History of A-Fib/PAF?: Yes Current PO Anticoag Therapy: Yes AIDAN PATEL MD May 27, 2020 11:34
[2020-05-27] MEDS ORDERED: FUROSEMIDE 20MG/2ML VIAL (J1940) IV ONE (12:00)
[2020-05-27 13:55] VITALS: BP 146/87
[2020-05-27] MEDS: APIXABAN 5 MG TAB (ELIQUIS) PO SCH ×2 (14:55→20:28)
[2020-05-27] MEDS: ASCORBIC ACID 500 MG TAB PO SCH (14:55)
[2020-05-27] MEDS: hydroCHLOROthiazide 25 MG TAB PO SCH (14:55)
[2020-05-27] MEDS: VITAMIN D 1,000 INTERNATIONAL UNITS TABLET PO SCH (15:05)
[2020-05-27] MEDS ORDERED: PERCOCET 5MG/325MG TAB PO PRN ×2 (16:30→21:00)
[2020-05-27] MEDS: diazePAM 5 MG TAB PO SCH ×2 (16:59→20:28)
[2020-05-27] MEDS: IPRATROPIUM 0.5MG/ALBUTEROL 2.5MG INH SOL UD 3ML (DUONEB) NEB SCH (18:19)
[2020-05-27] MEDS: methylPREDNISolone 40MG 1ML VIAL IV SCH (20:28)
[2020-05-27] MEDS ORDERED: DOCUSATE SODIUM 100 MG CAP PO PRN (21:00)
[2020-05-27 22:00] VITALS: BP 129/72
[2020-05-28] MEDS: PERCOCET 5MG/325MG TAB PO PRN ×3 (00:08→16:43)
[2020-05-28 00:32] LABS: APPEARANCE, URINE HAZY (CLEAR); BACTERIA, URINE AUTO NEGATIVE (NEGATIVE); BILIRUBIN, URINE AUTO NEGATIVE (NEGATIVE); BLOOD, URINE BLOOD NEGATIVE (NEGATIVE); COLOR, URINE YELLOW (YELLOW); GLUCOSE, URINE (UA) AUTO NEGATIVE (NEGATIVE); KETONE, URINE AUTO NEGATIVE (NEGATIVE); LEUKOCYTE ESTERASE, URINE AUTO TRACE (NEGATIVE); MUCUS, URINE SMALL (NEGATIVE); NITRITE, URINE AUTO NEGATIVE (NEGATIVE); PROTEIN, URINE AUTO NEGATIVE (NEGATIVE); RBC, URINE AUTO 1 /HPF (0-3); SPECIFIC GRAVITY URINE AUTO 1.013 (1.002-1.035); SQUAMOUS EPITHELIAL CELL UR AU 2 /HPF (0-6); UROBILINOGEN, URINE AUTO 0.2 mg/dL (0.0-2.0); WBC, URINE AUTO 2 /HPF (0-3)
[2020-05-28] MEDS: IPRATROPIUM 0.5MG/ALBUTEROL 2.5MG INH SOL UD 3ML (DUONEB) NEB SCH ×4 (01:10→20:15)
[2020-05-28 06:00] VITALS: BP 141/94
[2020-05-28 06:02] LABS: HEMATOCRIT 43.1 % (36.0-47.0); HEMOGLOBIN 13.8 g/dl (12.0-15.5); MEAN CORPUSCULAR HEMOGLOBIN 31.6 pg (27.0-33.0); MEAN CORPUSCULAR VOLUME 98.6 fl (80.0-96.0); PLATELET COUNT, AUTOMATED 200 10^3/uL (150-450); RED BLOOD COUNT 4.37 10^6/uL (4.00-5.40); WHITE BLOOD COUNT 13.6 10^3/uL (4.0-10.0)
[2020-05-28 06:39] LABS: ALBUMIN 3.1 GM/DL (3.2-5.2); CALCIUM LEVEL 8.8 MG/DL (8.8-10.2); CREATININE FOR GFR 1.03 MG/DL (0.55-1.30); GLOMERULAR FILTRATION RATE 55.3 (>39); POTASSIUM SERUM 3.9 MEQ/L (3.5-5.1); TOTAL PROTEIN 6.5 GM/DL (6.4-8.2)
[2020-05-28] MEDS: VITAMIN D 1,000 INTERNATIONAL UNITS TABLET PO SCH (09:44)
[2020-05-28] MEDS: diazePAM 5 MG TAB PO SCH ×3 (09:45→21:19)
[2020-05-28] MEDS: APIXABAN 5 MG TAB (ELIQUIS) PO SCH ×2 (09:45→21:19)
[2020-05-28] MEDS: ASCORBIC ACID 500 MG TAB PO SCH (09:45)
[2020-05-28] MEDS: METOPROLOL TART 25 MG TABLET PO SCH ×2 (09:47→21:21)
[2020-05-28] MEDS: hydroCHLOROthiazide 25 MG TAB PO SCH (09:48)
[2020-05-28 09:52] LABS: CK-MB VALUE MASS 1.4 NG/ML (<3.6); CPK CREATINE PHOSPHOKINASE 41 U/L (26-192); MB/CK RELATIVE INDEX 3.41 (< OR =4); TROPONIN I < 0.02 NG/ML (< 0.10)
[2020-05-28] MEDS: methylPREDNISolone 40MG 1ML VIAL IV SCH ×2 (09:57→21:22)
[2020-05-28] MEDS ORDERED: GI COCKTAIL 50ML BTL(HYOSCYAMINE/MAALOX/LIDOCAINE VISCOUS)(1:3:1) PO PRN (11:00)
[2020-05-28] MEDS: AZITHROMYCIN INJ 500 MG, VIAL MATE ADAPTER 1 EACH in D5W 250 ML IV SCH (12:13)
[2020-05-28] MEDS: PANTOPRAZOLE 20 MG TAB PO SCH (12:23)
[2020-05-28 14:00] VITALS: BP 148/82
--- NOTE | 2020-05-28 16:22 | IPNPDOC ---
Text Note Date of Service The patient was seen on 05/28/20. NOTE S: The patient is a 75-year-old female with a past medical history of COPD who has been a chronic active smoker 3 packs per day for the last 40 years came to the ED with shortness of breath. She denies any increase in her cough fevers or sick contacts or chills. She has no chest pain no headaches no blurry vision. PHYSICAL EXAMINATION: HEENT: Head is normocephalic. Pupils equal, reactive to light. Extraocular movements are intact. Neck is supple. No thyromegaly, jugular venous distention (JVD), or carotid bruits. RESPIRATORY: Coarse breath sounds. Mild expiratory wheezes. BREASTS: Deferred. CARDIOVASCULAR: Irregularly irregular. Soft systolic murmur. ABDOMEN: Protuberant, soft, nontender. EXTREMITIES: no cyanosis, clubbing, or edema. NEUROLOGIC: Alert and oriented. Assessment and plan : Ms. Aracelis Pollard is a 75-year-old female currently admitted for COPD excerbation. 1.COPD exacerbation . Likely smoking related. - Cont supplemental o2 to maintain sats above 92. -Solumedrol 40 bid. -Duo nebs as needed and scheduled q6. She will require to be on both LABA and LAMA on DC. -Azithromycin IV 500 for 4 days. COVID negative. Also she has 1 + pedal edema and this could be related to high PA pressures. -2D echo has been ordered. -was given one dose of 20 lasix. ABG reviewed. 2. Paroxysmal atrial fibrillation. Cont Eliquis and home metoprolol. 3. Osteoarthritis (OA), degenerative joint disease (DJD). Continue Percocet 4. HTN : continue hydrochlorothiazide. 5. Heartburn: -Patient started on IV Protonix 40 mg -GI cocktail for ordered. DVT prophylaxis: Not applicable patient is on anticoagulation. VS,Fishbone, I+O VS, Fishbone, I+O Laboratory Tests 05/28/20 05:41 Vital Signs Date Time Temp Pulse Resp B/P (MAP) Pulse Ox O2 Delivery O2 Flow Rate FiO2 05/28/20 14:00 98.8 102 16 148/82 (104) 92 Nasal Cannula 2.0 05/27/20 13:03 100 I&O- Last 24 Hours up to 6 AM 05/28/20 06:00 Intake Total 680 ml Output Total 1425 ml Balance -745 ml GME ATTESTATION GME ATTESTATION My faculty preceptor for this patient encounter was physically present during the encounter and was fully available. All aspects of the patient interview, examination, medical decision making process, and medical care plan development were reviewed and approved by the faculty preceptor. The faculty preceptor is aware and concurs with the plan as stated in the body of this note and will attest to such by his/her cosignature. ATTENDING NOTE Pt was seen and examined by me personally with the residents/students. Agree with the above assessment plan. Maryann Gray MD May 28, 2020 16:22 AIDAN PATEL MD Jun 12, 2020 10:27
--- NOTE | 2020-05-28 17:50 | ECGEPIP ---
[facility] Test Date: 2020-05-28 Pat Name: ANETA DE SANTIAGO Department: Room: [place] [address] Gender: Female Mosaic Layer: AMOL : 1945 Requested By: JOYCE ANNE Order Number: [id number] Reading MD: Sumit Lutz Measurements Intervals [place] Rate: 101 P: [place]: 0 QRS: 103 QRSD: 82 T: -31 QT: 333 QTc: 432 Interpretive Statements ATRIAL FIB, CONTROLLED VENTRICULAR RESPONSE. R AXIS. BODY HABITUS VS COPD. N NONSPECIFIC STT ABNORMALITIES. CLINICAL CORRELATION REQUIRED. SEE SCANNED D DOWNTIME REPORT.
[2020-05-28 22:00] VITALS: BP 137/77
[2020-05-29] MEDS: IPRATROPIUM 0.5MG/ALBUTEROL 2.5MG INH SOL UD 3ML (DUONEB) NEB SCH ×3 (02:05→13:25)
[2020-05-29] MEDS: PERCOCET 5MG/325MG TAB PO PRN (04:31)
[2020-05-29 06:00] VITALS: BP 150/91
[2020-05-29] MEDS ORDERED: methocarbamoL 500 MG TAB PO ONE (06:30)
[2020-05-29] MEDS ORDERED: LIDOCAINE 5% (LIDODERM) PATCH TD SCH (09:00)
[2020-05-29] MEDS ORDERED: LACTOBACILLUS ACIDOPHILUS CAP (BACID) PO SCH (09:00)
--- NOTE | 2020-05-29 09:17 | IPNPDOC ---
Text Note Date of Service The patient was seen on 05/29/20. NOTE S: Patient is a 75 yo female with a PMH of COPD who has been a chronic active smoker 3 packs/dayX40 years presented to [facility] ED due to dyspnea. Yesterday it was noted that overnight patient reported back pain radiating to bilateral hipsa and a lidocaine patch was ordered. Today patient is still reporting back pain with bilateral hip pain, she reported she had a history of OA, and uses lidocaine patch at home, she said she is willing to try the lidocaine patch. She reported she is still having some wheezing, some coughing with no productive cough. Reported chest pain in left epigastric area since yesterday morning, and patient is unable to answer if the GI cocktail helped with the pain. Reported intermittent diarrhea and constipation. ROS: General: Pos for diffuse body pain Heart: pos for chest pain and palpitation Lungs: Pos for wheezing and coughing. Denies cough GI: Pos for diarrhea and constipation Musculoskeletal: reported pain all over, reported pain specifically in lower back radiating to bilateral hip which she had a history for; hx of OA Psych: Denies anxiety PHYSICAL EXAMINATION: HEENT: Head is normocephalic,, atraumatic. Pupils equal and round bilaterally. NC in place. RESPIRATORY: Coarse breath sounds. Mild expiratory wheezes aus bilaterally. CARDIOVASCULAR: Irregularly irregular. No cardiac rubs auscultated. ABDOMEN: Protuberant, soft, reported tenderness to palpation in all 4 quadrants. EXTREMITIES: no cyanosis, clubbing, or edema. NEUROLOGIC: Alert and oriented Psych: Pos for mild anxiety. Assessment and plan : Ms. Aracelis Pollard is a 75-year-old female currently admitted for COPD excerbation. 1.COPD exacerbation . Likely smoking related. - Cont supplemental o2 to maintain sats above 92. -Solumedrol 40 bid. -Duo nebs as needed and scheduled q6. She will require to be on both LABA and LAMA on DC. -Azithromycin IV 500 for 4 days. COVID negative. Also she has 1 + pedal edema and this could be related to high PA pressures. -2D echo has been ordered. -was given one dose of 20 lasix. ABG reviewed. 2. Paroxysmal atrial fibrillation. Cont Eliquis and home metoprolol. 3. Osteoarthritis (OA), degenerative joint disease (DJD). Continue Percocet 4. HTN : continue hydrochlorothiazide. 5. Heartburn: -Patient started on IV Protonix 40 mg -GI cocktail for ordered. DVT prophylaxis: Not applicable patient is on anticoagulation. VS,Fishbone, I+O VS, Fishbone, I+O Vital Signs Date Time Temp Pulse Resp B/P (MAP) Pulse Ox O2 Delivery O2 Flow Rate FiO2 05/29/20 06:00 97.2 86 16 150/91 (110) 90 Nasal Cannula 2.0 05/27/20 13:03 100 I&O- Last 24 Hours up to 6 AM 05/29/20 06:00 Intake Total 1285 ml Output Total 500 ml Balance 785 ml JOYCE ANNE DO May 29, 2020 09:17
[2020-05-29] MEDS: methylPREDNISolone 40MG 1ML VIAL IV SCH (09:44)
[2020-05-29] MEDS: ASCORBIC ACID 500 MG TAB PO SCH (09:45)
[2020-05-29] MEDS: APIXABAN 5 MG TAB (ELIQUIS) PO SCH (09:45)
[2020-05-29] MEDS: PANTOPRAZOLE 20 MG TAB PO SCH (09:45)
[2020-05-29] MEDS: diazePAM 5 MG TAB PO SCH (09:45)
[2020-05-29] MEDS: VITAMIN D 1,000 INTERNATIONAL UNITS TABLET PO SCH (09:45)
[2020-05-29 09:47] VITALS: BP 148/83
[2020-05-29] MEDS: hydroCHLOROthiazide 25 MG TAB PO SCH (09:47)
[2020-05-29] MEDS: METOPROLOL TART 25 MG TABLET PO SCH (09:47)
[2020-05-29] MEDS ORDERED: SPIR1CAP INH (10:07)
[2020-05-29] MEDS ORDERED: PRED20TA PO (10:09)
--- NOTE | 2020-05-29 11:44 | DS.PDOC ---
Discharge Summary General Date of Admission May 27, 2020 at 07:03 Date of Discharge 05/29/2020 Discharge Summary PROCEDURES PERFORMED DURING STAY: [None]. ADMITTING DIAGNOSES: 1. COPD exacerbation 2. Paroxysmal atrial fibrillation 3. Osteoarthritis/degenerative joint disease 4. HTN DISCHARGE DIAGNOSES: 1. COPD exacerbation, Improved 2. Paroxysmal atrial fibrillation 3. Osteoarthritis/degenerative joint disease 4. HTN 5. Heartburn COMPLICATIONS/CHIEF COMPLAINT: COPD. HISTORY OF PRESENT ILLNESS: Patient is a 75 yo female with PMH of atorres, COPD with active tobacco use for 40 years presented to [facility] with progressive dyspnea even with minimal exertion. She reported that she tried to quit smoking 3 days back as her dyspnea has gotton worse. She denies any sick contacts, fevers, rigors, or chills. Upon admission, she denies any chest pain, and has notices mild ankle edema. She denies any travel or exposure to COVID 19. It was noted that she does not remember her last echo or PFT results but states that both have been done with in 1 year. She denied any headaches, blurry vision. Also she is quite inactive because of her advanced osteoarthritis. She Uses ProAir and albuterol PRN HOSPITAL COURSE: Patient was admitted to the hospital and was started on IV solumedrol and inhalers. Patient received a small dose of Lasix at the time of admission and was continued to be on IV solumedrol. Her dyspnea improved and continued to saturate well.On 05/28/2020, it was noted that patient reported that she reported left sided epigastric chest pain, and EKG was ordered with 2 sets of cardiac markers unremarkable; pt was on tele. On 05/29/2020 morning, it was noted that patient reported back pain and in addition to her oral pain meds, lidocaine patch was ordered. Patient reported back pain radiating to bilateral hip and reported hx of similar pain in the past with hx of OA. No labored breathing was observed and pt was saturating well on oxygenating well on 2L NC. It was determined that patient is ready for discharge with 3 days of oral steroid and addition of tiotropium. DISCHARGE MEDICATIONS: Please see below. ALLERGIES: Please see below. PHYSICAL EXAMINATION ON DISCHARGE: HEENT: Head is normocephalic,, atraumatic. Pupils equal and round bilaterally. NC in place. RESPIRATORY: Coarse breath sounds. Mild expiratory wheezes aus bilaterally. CARDIOVASCULAR: Irregularly irregular. No cardiac rubs auscultated. ABDOMEN: Protuberant, soft, reported tenderness to palpation in all 4 quadrants. EXTREMITIES: no cyanosis, clubbing, or edema. NEUROLOGIC: Alert and oriented Psych: Pos for mild anxiety but calmed down after conversation LABORATORY DATA: Please see below. IMAGIN05/27/2020 cardiomegaly with pulmonary vascular congestion; small b/l pleural effusions. Increasing hazy ground-glass and ill-defined opacity at the lung bases PROGNOSIS: [Fair] ACTIVITY: [As tolerated]. DIET: [COPD diet with 2g Na diet restriction] DISCHARGE PLAN AND INSTRUCTIONS: 1. Follow up with PCP in 7 days 2. Take medication as prescribed 3. Follow up with PT/OT outpatient as needed ITEMS TO FOLLOWUP ON ON OUTPATIENT: 1. [COPD]. 2. Chronic imbalance DISCHARGE CONDITION: [Stable]. TIME SPENT ON DISCHARGE: Greater than [35] minutes. Vital Signs/I&Os Vital Signs Date Time Temp Pulse Resp B/P (MAP) Pulse Ox O2 Delivery O2 Flow Rate FiO2 05/29/20 09:47 113 148/83 05/29/20 06:00 97.2 16 90 Nasal Cannula 2.0 05/27/20 13:03 100 I&O- Last 24 Hours up to 6 AM 05/29/20 06:00 Intake Total 1285 ml Output Total 500 ml Balance 785 ml Microbiology Microbiology 05/27/20 Blood Culture - Preliminary, Resulted No Growth after 48 hours. All Specime... 05/27/20 Respiratory Virus Panel (PCR) (TONG) - Final, Complete 05/27/20 Blood Culture - Preliminary, Resulted No Growth after 48 hours. All Specime... Discharge Medications Scheduled Apixaban (Eliquis) 5 Mg Tablet, 5 MG PO BID, (Reported) Ascorbic Acid (Ascorbic Acid) 500 Mg Tablet, 500 MG PO DAILY, (Reported) Cholecalciferol (Vitamin D3) (Vitamin D3) 1,000 Unit Tablet, 2,000 UNITS PO DAILY, (Reported) Diazepam (Valium) 5 Mg Tab, 5 MG PO TID, (Reported) Hydrochlorothiazide (Hydrochlorothiazide) 12.5 Mg Tab, 25 MG PO DAILY, (Reported) Magnesium Oxide (Magnesium) 400 Mg Capsule, 400 MG PO DAILY, (Reported) Metoprolol Tartrate (Metoprolol Tartrate) 25 Mg Tablet, 25 MG PO BID, (Reported) Prednisone (Prednisone) 20 Mg Tablet, 20 MG PO DAILY Tiotropium [place] (Spiriva) 18 Mcg Cap.w.dev, 1 INHALATION INH DAILY Vitamin E (Vitamin E) 400 Unit Capsule, 400 UNIT PO DAILY, (Reported) Scheduled PRN Albuterol Sulf (Albuterol Sulfate) 2.5 Mg/3 Ml Nebu, 2.5 MG INH Q4H PRN for SOB/WHEEZING, (Reported) Albuterol Sulfate (Proair Hfa) 108 Mcg/Act Aer, 2 PUFF INH QID PRN for SHORTNESS OF BREATH, (Reported) Oxycodone HCl/Acetaminophen (Percocet 7.5-325 mg Tablet) 1 Each Tablet, 1 TAB PO TID PRN for PAIN, (Reported) Allergies Coded Allergies: adhesive tape (Verified Allergy, Intermediate, RASH, 12/20/18) latex (Verified Allergy, Intermediate, RASH, 12/20/18) GME ATTESTATION GME ATTESTATION My faculty preceptor for this patient encounter was physically present during the encounter and was fully available. All aspects of the patient interview, examination, medical decision making process, and medical care plan development were reviewed and approved by the faculty preceptor. The faculty preceptor is aware and concurs with the plan as stated in the body of this note and will attest to such by his/her cosignature. ATTENDING NOTE Patient was seen and examined by me personally with the residents and I agree with the above assessment and plan JOYCE ANNE DO May 29, 2020 11:44 AIDAN PATEL MD Jun 01, 2020 14:46
[2020-05-29] MEDS: AZITHROMYCIN INJ 500 MG, VIAL MATE ADAPTER 1 EACH in D5W 250 ML IV SCH (12:00)
[2020-05-29 14:00] VITALS: BP 145/85
[2020-05-29] MEDS ORDERED: **NOTE PATIENT COMMENT** MISC XX SCH (21:00)
--- NOTE | 2020-06-01 18:24 | ECHO ---
DATE OF PROCEDURE: 05/27/2020 Age: 75 Gender: Height: Weight: REFERRING PHYSICIAN: Dr. Ap Castle Patient location: Room 4224 INDICATION: Cardiomegaly, shortness of breath. MEASUREMENTS: 2D measurement: IVS 0.9 cm LV 3.8 cm LVPW 1.0 cm LA 4.5 cm Aorta 2.4 cm IVC 1.8 cm DOPPLER MEASUREMENT: Peak velocity across the aortic valve 1.3 m/s Peak velocity across the LVOT 0.7 m/s Maximum tricuspid jet velocity 3.0 m/s 2D COMMENTS: 1. Normal left ventricular size, wall thickness and normal global left ventricular systolic function. Estimated left ventricular systolic ejection fraction (LVEF) is 60 to 65%. 2. Mildly enlarged left atrium at 4.5 cm. Normal right atrium and right ventricle. 3. The atrial septum appears to be normal without evidence of defect or shunt. 4. Normal aortic root. 5. A small pericardial effusion was noted. No evidence of cardiac tamponade. 6. Mild calcified aortic valve with normal leaflet excursion. Mild calcified mitral annulus with normal anterior mitral valve leaflet motion. Normal tricuspid valve. The pulmonic valve appears to be normal. The proximal pulmonary artery branches were not well visualized. 7. The inferior vena cava was normal in size, central venous pressure (CVP) is mostly likely normal DOPPLER: Detects mild mitral regurgitation, mild tricuspid regurgitation. The calculated pulmonary artery systolic pressure rise between 40 to 50 mmHg. Suggestively, there are features consistent with grade 1 left ventricular diastolic dysfunction manifested by abnormal relaxation. IMPRESSION: 1. Normal global left ventricular systolic function. Suggestively, there are features consistent with grade 1 left ventricular diastolic dysfunction. 2. Aortic valve sclerosis without stenosis or aortic regurgitation. 3. Mitral annulus calcification with a mildly enlarged left atrium and mild mitral regurgitation. 4. Mild tricuspid regurgitation (TR) with probable moderate pulmonary hypertension. 5. A small pericardial effusion was noted. No evidence of cardiac tamponade. [facility]
--- NOTE | 2020-06-03 20:33 | ECGEPIP ---
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 Order Number: [id number] Reading MD: Jorge Luis Ashford Measurements Intervals [place] Rate: 103 P: [place]: 0 QRS: 95 QRSD: 92 T: -20 QT: 353 QTc: 464 Interpretive Statements ATRIAL FIBRILLATION WITH RAPID VENTRICULAR RESPONSE PRIOR SEPTAL INFARCT SEE SCANNED DOWNTIME REPORT
== END 2020-05-29 14:24 | disposition home health service (06) | DRG 192 ==
LOC: M ED 07:02 → EDBD 07:02 → M ED INP 07:03 → ENRESERV 11:43 → M MSPAV 13:32 → OBSVTOIN 05-28 10:28 → INTOOBSV 05-28 10:28
PROVIDERS: ADMIT Internal Medicine; ATTEND Internal Medicine
DX: J44.1 Chronic obstructive pulmonary disease with (acute) exacerbation (principal); I48.0 Paroxysmal atrial fibrillation; F41.1 Generalized anxiety disorder; E55.9 Vitamin D deficiency, unspecified; J30.9 Allergic rhinitis, unspecified; M19.90 Unspecified osteoarthritis, unspecified site; I10 Essential (primary) hypertension; M81.0 Age-related osteoporosis without current pathological fracture; E66.9 Obesity, unspecified; F17.200 Nicotine dependence, unspecified, uncomplicated; R73.03 Prediabetes; Z87.81 Personal history of (healed) traumatic fracture; Z90.49 Acquired absence of other specified parts of digestive tract; Z79.01 Long term (current) use of anticoagulants; Z79.899 Other long term (current) drug therapy; Z88.8 Allergy status to other drugs, medicaments and biological substances; Z91.040 Latex allergy status

== ENCOUNTER 2020-07-19 09:07 | Observation (INO) | payer MEDICARE, OTHER ==
[~2020-07-19] VITALS: Ht 147.3 cm; Wt 87.2 kg
[~2020-07-19 09:07] MED LIST changes: +ASCO500T PO; +D31000TA2 PO; +MAGN400C2 PO; +PERC7.5T11 PO; +SPIR1CAP INH; +VITA400C53 PO
[2020-07-19] MEDS ORDERED: POTA99TA5 PO (09:37)
[2020-07-19] MEDS ORDERED: MECLIZINE 25 MG TABLET PO ONE (09:45)
[2020-07-19 09:58] LABS: BASO # 0.1 10^3/uL (0.0-0.2); BASO % 0.5 % (0.0-1.0); EOS # 0.3 10^3/uL (0.0-0.5); HEMATOCRIT 43.2 % (36.0-47.0); HEMOGLOBIN 13.3 g/dl (12.0-15.5); LYMPH # 1.7 10^3/uL (1.5-5.0); LYMPH % 15.8 % (24.0-44.0); MEAN CORPUSCULAR HEMOGLOBIN 30.5 pg (27.0-33.0); MEAN CORPUSCULAR HGB CONC 30.8 g/dl (32.0-36.5); MEAN CORPUSCULAR VOLUME 99.1 fl (80.0-96.0); MONO # 0.6 10^3/uL (0.0-0.8); MONO % 5.8 % (0.0-5.0); NEUTROPHILS # 7.8 10^3/uL (1.5-8.5); NEUTROPHILS % 74.5 % (36.0-66.0); PLATELET COUNT, AUTOMATED 207 10^3/uL (150-450); RED BLOOD COUNT 4.36 10^6/uL (4.00-5.40); WHITE BLOOD COUNT 10.5 10^3/uL (4.0-10.0)
[2020-07-19 10:10] LABS: INR 1.32; PROTHROMBIN TIME 16.7 SECONDS (12.5-14.3)
[2020-07-19 10:11] LABS: PARTIAL THROMBOPLASTIN TIME 43.2 SECONDS (24.2-38.5)
--- NOTE | 2020-07-19 10:24 | REP ---
INDICATION: head injury, eliquis. COMPARISON: None. TECHNIQUE: Helical scanning is acquired. 5 mm axial images were reformatted. Coronal MPR images were generated. FINDINGS: Bone window settings demonstrate an intact bony calvarium. There is no evidence of skull fracture or incidental bony calvarial lesion. The visualized paranasal sinuses appear clear. No intraorbital abnormality is seen. On soft tissue window setting images; the lateral, third, and fourth ventricles are normal in size and position. Jeffries-white differentiation pattern is normal above and below the tentorium. There are is no evidence of intracranial hemorrhage. No mass, edema, infarction, or midline shift is seen. No extra-axial fluid collection is appreciated. There is minimal generalized volume loss. Mild small vessel changes are noted. There is fairly heavy vascular calcification in the distal internal carotid arteries. IMPRESSION: Vascular calcification, minimal generalized volume loss, and mild small vessel changes. No acute intracranial abnormality. No skull fracture or intracranial injury seen.. <Electronically signed by Darion Rodarte > 07/19/20 [id number]
--- NOTE | 2020-07-19 10:28 | REP ---
INDICATION: head injury, eliquis. COMPARISON: None. TECHNIQUE: Helical scanning is acquired and overlapping 2 mm high resolution axial images were generated and reviewed at bone and soft tissue window settings. Coronal and sagittal multiplanar re-formations images are generated. FINDINGS: There is no evidence of cervical spine element fracture. No skull base fracture is seen. Cervical vertebral body heights are preserved. Alignment is normal. Facet joints are normally aligned bilaterally at each cervical level on multiplanar re-formations images. There is no evidence of intraspinal or paraspinal hematoma. No extra vertebral abnormality is seen. There is moderate degenerative spondylosis change. Multilevel osteoarthritic facet sclerosis and hypertrophy are seen bilaterally in the mid cervical spine levels. Degenerative disc disease is most pronounced at C5-6 and C6-7 where there is disc space narrowing and posterior osteophytic ridging. At C5-6, there is central calcification in a diffusely bulging disc and mild central canal stenosis is seen. Neural foraminal narrowing is present bilaterally at C5-6. At C4-5, there is a degenerative 2 mm spondylolisthesis of C4 anterior with respect to C5 due to degenerative disc and facet disease. IMPRESSION: Fairly advanced degenerative spondylosis changes. No traumatic abnormality noted.. <Electronically signed by Darion Rodarte > 07/19/20 [id number]
[2020-07-19 10:39] LABS: BLOOD UREA NITROGEN 21 MG/DL (7-18); CALCIUM LEVEL 8.9 MG/DL (8.8-10.2); CARBON DIOXIDE LEVEL 38 MEQ/L (21-32); CHLORIDE LEVEL 101 MEQ/L (98-107); CK-MB VALUE MASS < 1.0 NG/ML (<3.6); CPK CREATINE PHOSPHOKINASE 38 U/L (26-192); CREATININE FOR GFR 1.02 MG/DL (0.55-1.30); FREE T4 1.05 NG/DL (0.76-1.46); GLOMERULAR FILTRATION RATE 55.9 (>39); GLUCOSE, FASTING 131 MG/DL (70-100); MAGNESIUM LEVEL 1.6 MG/DL (1.8-2.4); MB/CK RELATIVE INDEX 2.63 (< OR =4); POTASSIUM SERUM 3.6 MEQ/L (3.5-5.1); SODIUM LEVEL 141 MEQ/L (136-145); TROPONIN I < 0.02 NG/ML (< 0.10)
--- NOTE | 2020-07-19 11:01 | REP ---
INDICATION: Syncope/near-syncope. COMPARISON: Comparison chest x-ray May 27, 2020 and October 20, 2018.. TECHNIQUE: Single AP sitting radiograph. FINDINGS: There is [id number] cardiomegaly unchanged. Linear fibrosis is seen in the left perihilar region as before. No acute infiltrate is seen. Pleural angles are sharp. There is no evidence of pulmonary edema or pleural effusion. IMPRESSION: Moderate cardiomegaly. Left perihilar linear fibrosis. Otherwise no acute disease. <Electronically signed by Darion Rodarte > 07/19/20 [id number]
[2020-07-19] MEDS: METOCLOPRAMIDE INJ 10MG/2ML VIAL (J2765 PER 1) IV SCH ×3 (12:00→23:39)
[2020-07-19] MEDS ORDERED: MAG SULF 1GM/100ML (MAG RUN) 1 GM in IV 1 EA IV ONE (12:00)
[2020-07-19] MEDS ORDERED: diazePAM 10MG/2ML SYRINGE (J3360 PER 5MG) IV ONE (12:00)
[2020-07-19] MEDS ORDERED: PERCOCET 5MG/325MG TAB PO ONE (13:45)
[2020-07-19] MEDS ORDERED: SPIR1CAP INH (14:23)
[2020-07-19] MEDS ORDERED: FURO20TA2 PO (14:23)
--- NOTE | 2020-07-19 14:38 | HPEPDOC ---
[facility] Medical History & Physical Date of Admission Jul 19, 2020 Date of Service: Jul 19, 2020 History and Physical CHIEF COMPLAINT: dizziness [id number] "the room is spinning" HISTORY OF PRESENT ILLNESS: 75 y/o female with past medical history significant for chronic Atrial fibrillation compliant with eliquis, mild mitral regurgitation, mild tricuspid regurgitation. small pericardial effusion, probable moderate pulmonary h ypertension, grade 1LV diastolic dysfunction, cardiomegaly, Hypertension,COPD,obesity BMI 39.4 was in her usual state of health until 2 days when she bent over while in the toilet,bumped her head on the bathroom sink without LOC, and c/o dizziness and difficulty ambulating with loss of balance. She leaned down and felt like "I was going to puke and faint last night," worse when "I move to the right." She c/o headache diffusely and lightheadedness but was able to walk with her walker back and forth from her bed to the couch without her . No prior episodes before, and despite taking her valium, she had continued dizziness without palpitations, diaphoresis. She denies brbpr, melena, black tarry stoools,, or hematemesis, fever, chills, sob, but admits to slight cough productive of yellow sputum, bilateral ear pain that she called her doctor for to get amoxicillin, and chronic back pain.Due to persistent symptoms, pt came to the ER for evaluation. EKG: Afib 76. glucose was 131, hgb normal at 13, not orthostatic. PAST MEDICAL HISTORY: Atrial fibrillation , mild mitral regurgitation, mild tricuspid regurgitation. small pericardial effusion, probable moderate pulmonary hypertension, grade 1LV diastolic dysfunction, cardiomegaly, C5-6 mild central canal stenosis with DJD, 2 mm spondylolisthesis of C4 ,Generalized anxiety disorder.Vitamin D deficiency.Allergic rhinitis.Osteoarthritis (OA), degenerative joint disease (DJD).Hypertension.COPD. Osteoporosis.Obesity.Tobacco abuse.Prediabetes. traumatic scalp laceration as a child, pneumonia o2 dependent chronic hypoxic respiratory failure on 2liters nasal cannula diverticultitis UTI cervical biopsy 1993 x 2 chronic back pain. LEANNE not tolerating cpap. PAST SURGICAL HISTORY: Left ankle fracture in 1975.Left hand fracture in 1995. Umbilical herniorrhaphy. Status post appendectomy. Bilateral carpal tunnel repair. Benign neck tumor excision times two Bilateral tubal ligation. cervical biopsy x 1993 HOME MEDICATIONS: SEE BELOW ALLERGIES: SEE BELOW SOCIAL HISTORY: active cigarette [id number] cig/day. 1-2ppd x 40 years, quit many times, but relapsed again. 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 . Four sons FAMILY HISTORY: Father father had hypertension and kidney failure. Mother had lung cancer. REVIEW OF SYSTEMS: 10 POINT SYSTEMS REVIEW NEGATIVE ASIDE FROM (+)FINDINGS ON HPI PHYSICAL EXAMINATION: VITAL SIGNS: GEN:obese AAOX3 able to converse without use of acc resp mm HEENT:PERLL EOMI face is symmetric tongue midline b/l TM blocked by cerumen. horizontal nystagmus LUNGS: AEBE faint wheezing. HEART: S1S2 Irregularly irregular faint 2/6 TIMOTHY at apex ABD:obese soft nt nd -cva t. no hsm no abd bruit EXT:1+ b/l pitting edema NEURO:AAO x3. horizontal nystagmus. motor 4 ext 5/5 strength face is symmetric tongue midline no pronator drift dtr's intact 2+b/l . gait not tested. no sensory disturbance. LABORATORY DATA: SEE BELOW EKG:afib 76 IMAGING STUDIES: CT HEAD 07/19/20 INDICATION: head injury, eliquis. COMPARISON: None. TECHNIQUE: Helical scanning is acquired. 5 mm axial images were reformatted. Coronal MPR images were generated. FINDINGS: Bone window settings demonstrate an intact bony calvarium. There is no evidence of skull fracture or incidental bony calvarial lesion. The visualized paranasal sinuses appear clear. No intraorbital abnormality is seen. On soft tissue window setting images; the lateral, third, and fourth ventricles are normal in size and position. Jeffries-white differentiation pattern is normal above and below the tentorium. There are is no evidence of intracranial hemorrhage. No mass, edema, infarction, or midline shift is seen. No extra-axial fluid collection is appreciated. There is minimal generalized volume loss. Mild small vessel changes are noted. There is fairly heavy vascular calcification in the distal internal carotid arteries. IMPRESSION: Vascular calcification, minimal generalized volume loss, and mild small vessel changes. No acute intracranial abnormality. No skull fracture or intracranial injury seen.. <Electronically signed by Darion Rodarte > 07/19/20 1020 CHEST XRAY 07/19/20 INDICATION: Syncope/near-syncope. COMPARISON: Comparison chest x-ray May 27, 2020 and October 20, 2018.. TECHNIQUE: Single AP sitting radiograph. FINDINGS: There is [id number] cardiomegaly unchanged. Linear fibrosis is seen in the left perihilar region as before. No acute infiltrate is seen. Pleural angles are sh francisco. There is no evidence of pulmonary edema or pleural effusion. IMPRESSION: Moderate cardiomegaly. Left perihilar linear fibrosis. Otherwise no acute disease. <Electronically signed by Darion Rodarte > 07/19/[address] CERVICAL SPINE WITHOUT CONTRAST 07/19/20 INDICATION: head injury, eliquis. COMPARISON: None. TECHNIQUE: Helical scanning is acquired and overlapping 2 mm high resolution axial images were generated and reviewed at bone and soft tissue window settings. Coronal and sagittal multiplanar re-formations images are generated. FINDINGS: There is no evidence of cervical spine element fracture. No skull base fracture is seen. Cervical vertebral body heights are preserved. Alignment is normal. Facet joints are normally aligned bilaterally at each cervical level on multiplanar re-formations images. There is no evidence of intraspinal or paraspinal hematoma. No extra vertebral abnormality is seen. There is moderate degenerative spondylosis change. Multilevel osteoarthritic f acet sclerosis and hypertrophy are seen bilaterally in the mid cervical spine levels. Degenerative disc disease is most pronounced at C5-6 and C6-7 where there is disc space narrowing and posterior osteophytic ridging. At C5-6, there is central calcification in a diffusely bulging disc and mild central canal stenosis is seen. Neural foraminal narrowing is present bilaterally at C5-6. At C4-5, there is a degenerative 2 mm spondylolisthesis of C4 anterior with respect to C5 due to degenerative disc and facet disease. IMPRESSION: Fairly advanced degenerative spondylosis changes. No traumatic abnormality noted.. <Electronically signed by Darion Rodarte > 07/19/20 [id number] 2D ECHOCARDIOGRAM DATE OF PROCEDURE: 05/27/2020 Age: 75 Gender: Height: Weight: REFERRING PHYSICIAN: Dr. Ap Castle Patient location: Room 4224 INDICATION: Cardiomegaly, shortness of breath. MEASUREMENTS: 2D measurement: IVS 0.9 cm LV 3.8 cm LVPW 1.0 cm LA 4.5 cm Aorta 2.4 cm IVC 1.8 cm DOPPLER MEASUREMENT: Peak velocity across the aortic valve 1.3 m/s Peak velocity across the LVOT 0.7 m/s Maximum tricuspid jet velocity 3.0 m/s 2D COMMENTS: 1. Normal left ventricular size, wall thickness and normal global left ventricular systolic function. Estimated left ventricular systolic ejection fraction (LVEF) is 60 to 65%. 2. Mildly enlarged left atrium at 4.5 cm. Normal right atrium and right ventricle. 3. The atrial septum appears to be normal without evidence of defect or shunt. 4. Normal aortic root. 5. A small pericardial effusion was noted. No evidence of cardiac tamponade. 6. Mild calcified aortic valve with normal leaflet excursion. Mild calcified mitral annulus with normal anterior mitral valve leaflet motion. Normal tricuspid valve. The pulmonic valve appears to be normal. The proximal pulmonary artery branches were not well visualized. 7. The inferior vena cava was normal in size, central venous pressure (CVP) is mostly likely normal DOPPLER: Detects mild mitral regurgitation, mild tricuspid regurgitation. The calculated pulmonary artery systolic pressure rise between 40 to 50 mmHg. Suggestively, there are features consistent with grade 1 left ventricular diast olic dysfunction manifested by abnormal relaxation. IMPRESSION: 1. Normal global left ventricular systolic function. Suggestively, there are features consistent with grade 1 left ventricular diastolic dysfunction. 2. Aortic valve sclerosis without stenosis or aortic regurgitation. 3. Mitral annulus calcification with a mildly enlarged left atrium and mild mitral regurgitation. 4. Mild tricuspid regurgitation (TR) with probable moderate pulmonary hypertension. 5. A small pericardial effusion was noted. No evidence of cardiac tamponade. ASSESSMENT: 75 y/o female with past medical history significant for chronic Atrial fibrillation compliant with eliquis, mild mitral regurgitation, mild tricuspid regurgitation. small pericardial effusion, probable moderate pulmonary hypertension, grade 1LV diastolic dysfunction, cardiomegaly, Hypertension,COPD,obesity BMI 39.4 was in her usual state of health until 2 days when she bent over while in the toilet,bumped her head on the bathroom sink without LOC, and c/o dizziness and difficulty ambulating with loss of balance. She leaned down and felt like "I was going to puke and faint last night," worse when "I move to the right." She c/o headache diffusely and lightheadedness but was able to walk with her walker back and forth from her bed to the couch without her . No prior episodes before, and despite taking her valium, she had continued dizziness without palpitations, diaphoresis. She denies brbpr, melena, black tarry stoools,, or hematemesis, fever, chills, sob, but admits to slight cough productive of yellow sputum, bilateral ear pain that she called her doctor for to get amoxicillin, and chronic back pain.Due to persistent symptoms, pt came to the ER for evaluation. EKG: Afib 76. glucose was 131, hgb normal at 13, not orthostatic. PROBLEMS: Peripheral Vertigo DDx: labyrinthitis vs BPPV Acute bronchitis r/o OM bilateral cerumen impaction copd, compensated chronic hypoxic respiratory failure on 2liter o2 nc,baseline obesity [id number] Atrial fibrillation ,chronic mild mitral regurgitation, mild tricuspid regurgitation. probable moderate pulmonary hypertension, chf grade 1LV diastolic dysfunction,compensated C5-6 mild central canal stenosis with DJD, 2 mm spondylolisthesis of C4 , Generalized anxiety disorder. Vitamin D deficiency. Allergic rhinitis. Osteoarthritis (OA), degenerative joint disease (DJD). Hypertension. Osteoporosis. Active cigarette smoking/Tobacco abuse. LEANNE not tolerating cpap. PLAN: admit for observation, check orthostatic vital signs, but most likely vertigo. r/o labynthitis check respiratory panel. nebs for bronchitis. no acute pna on cxr. PT/OT vestibular exercises. fall precautions. meclizine 25 mg q6hrs. resume home meds. reglan due to persistent n/headache. no bleed on CT head. unlikely cerebellar cva bc compliant w eliquis. otic solution to clear cerumen, to fur ther eval for otitis media. resume all other home meds. dc in 1-2 days once symptoms fredy. tele r/o uncontrolled arrhythmia. Vital Signs Vital Signs Date Time Temp Pulse Resp B/P (MAP) Pulse Ox O2 Delivery O2 Flow Rate FiO2 07/19/20 12:33 80 19 118/57 (77) 07/19/20 12:30 98 Room Air 07/19/20 10:46 2.0 07/19/20 09:08 97.5 Laboratory Data Labs 24H Laboratory Tests 2 07/19/20 09:49: Immature Granulocyte % (Auto) 0.4, Neutrophils (%) (Auto) 74.5H, Lymphocytes (%) (Auto) 15.8L, Monocytes (%) (Auto) 5.8H, Eosinophils (%) (Auto) 3.0, Basophils (%) (Auto) 0.5, Neutrophils # (Auto) 7.8, Lymphocytes # (Auto) 1.7, Monocytes # (Auto) 0.6, Eosinophils # (Auto) 0.3, Basophils # (Auto) 0.1, Nucleated Red Blood Cells % (auto) 0.0, Prothrombin Time 16.7H, Prothromb Time International Ratio 1.32, Activated Partial Thromboplast Time 43.2H, Anion Gap 2L, Glomerular Filtration Rate 55.9, Calcium Level 8.9, Magnesium Level 1.6L, Total Creatine Kinase 38, Creatine Kinase MB < 1.0, Creatine Kinase MB Relative Index 2.63, Troponin I < 0.02, Thyroid Stimulating Hormone (TSH) 1.440, Free Thyroxine 1.05 07/19/20 10:17: Bedside Glucose (Misc Panel) 105 CBC/BMP Laboratory Tests 07/19/20 09:49 Home Medications Scheduled Apixaban (Eliquis) 5 Mg Tablet, 5 MG PO BID Ascorbic Acid (Ascorbic Acid) 500 Mg Tablet, 500 MG PO DAILY Cholecalciferol (Vitamin D3) (Vitamin D3) 1,000 Unit Tablet, 2,000 UNITS PO DAILY Diazepam (Valium) 5 Mg Tab, 5 MG PO TID Furosemide (Furosemide) 20 Mg Tablet, 20 MG PO 3XW MON, WED, FRI Hydrochlorothiazide (Hydrochlorothiazide) 12.5 Mg Tab, 25 MG PO DAILY Magnesium Oxide (Magnesium) 400 Mg Capsule, 400 MG PO DAILY Metoprolol Tartrate (Metoprolol Tartrate) 25 Mg Tablet, 25 MG PO BID Potassium Gluconate (Potassium Gluconate) 99 Mg Tablet, 2 MEQ PO BID Tiotropium Economy (Spiriva) 18 Mcg Cap.w.dev, 1 CAP INH DAILY Vitamin E (Vitamin E) 400 Unit Capsule, 400 UNIT PO DAILY Scheduled PRN Albuterol Sulf (Albuterol Sulfate) 2.5 Mg/3 Ml Nebu, 1 VIAL NEB Q4H PRN for SOB/WHEEZING Albuterol Sulfate (Proair Hfa) 108 Mcg/Act Aer, 2 PUFF INH QID PRN for SHORTNESS OF BREATH Oxycodone HCl/Acetaminophen (Percocet 7.5-325 mg Tablet) 1 Each Tablet, 1 TAB PO TID PRN for PAIN Allergies Coded Allergies: adhesive tape (Verified Allergy, Intermediate, RASH, 4/4/19) latex (Verified Allergy, Intermediate, RASH, 12/20/18) A-FIB/CHADSVASC A-FIB History Current/History of A-Fib/PAF?: Yes Current PO Anticoag Therapy: Yes Age/Risk Factor Scoring CHADSVASC: CHADSVASC Response (Comments) Value Age Risk Factor Age >/= 75 years old 2 Gender Risk Factor Female 1 Hx of CHF Yes 1 Hx of HTN Yes 1 Hx of Stroke/TIA/or VTE No 0 Hx of Diabetes Yes 1 Hx of Vascular Disease No 0 Total 6 Treatment Treatment ordered: Apixaban KRISTA GRAY MD Jul 19, 2020 13:24
[2020-07-19] MEDS ORDERED: LEVALBUTEROL 1.25 MG/0.5 ML CONCENTRATE NEB INH PRN (14:45)
[2020-07-19 15:00] VITALS: BP 154/56
[2020-07-19] MEDS ORDERED: SLF 3 ML SYR IV PRN (15:15)
[2020-07-19 16:00] VITALS: BP_SYST 139; BP_SYST 151; BP_SYST 164; BP_DIAS 100; BP_DIAS 67
[2020-07-19] MEDS: LEVALBUTEROL 1.25 MG/0.5 ML CONCENTRATE NEB INH SCH ×2 (16:00→19:50)
[2020-07-19] MEDS: diazePAM 5 MG TAB PO SCH ×2 (16:11→20:28)
[2020-07-19] MEDS: MECLIZINE 25 MG TABLET PO SCH ×2 (17:16→23:38)
[2020-07-19 20:00] VITALS: BP 120/60
[2020-07-19] MEDS: CARBAMIDE PEROXIDE 6.5% OTIC SOLN 15ML AU SCH (20:28)
[2020-07-19] MEDS: METOPROLOL TART 25 MG TABLET PO SCH (20:29)
[2020-07-19] MEDS: SLF 3 ML SYR IV SCH (20:30)
[2020-07-19] MEDS: APIXABAN 5 MG TAB (ELIQUIS) PO SCH (20:30)
[2020-07-19] MEDS: PERCOCET 5MG/325MG TAB PO PRN (23:39)
[2020-07-20] MEDS: LEVALBUTEROL 1.25 MG/0.5 ML CONCENTRATE NEB INH SCH ×6 (00:31→23:26)
[2020-07-20 04:00] VITALS: BP 132/72
[2020-07-20] MEDS: PERCOCET 5MG/325MG TAB PO PRN ×3 (04:00→20:03)
[2020-07-20] MEDS: MECLIZINE 25 MG TABLET PO SCH ×2 (05:25→12:00)
[2020-07-20] MEDS: METOCLOPRAMIDE INJ 10MG/2ML VIAL (J2765 PER 1) IV SCH ×4 (05:26→23:46)
[2020-07-20] MEDS: SLF 3 ML SYR IV SCH ×3 (05:33→20:06)
--- NOTE | 2020-07-20 07:46 | ECGEPIP ---
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
[2020-07-20 08:00] VITALS: BP 157/78
[2020-07-20] MEDS: VITAMIN D 1,000 INTERNATIONAL UNITS TABLET PO SCH (08:57)
[2020-07-20] MEDS: APIXABAN 5 MG TAB (ELIQUIS) PO SCH ×2 (08:57→20:02)
[2020-07-20] MEDS: hydroCHLOROthiazide 25 MG TAB PO SCH (08:57)
[2020-07-20] MEDS: ASCORBIC ACID 500 MG TAB PO SCH (08:58)
[2020-07-20] MEDS: METOPROLOL TART 25 MG TABLET PO SCH ×2 (08:58→20:04)
[2020-07-20] MEDS: diazePAM 5 MG TAB PO SCH ×3 (08:58→20:01)
[2020-07-20] MEDS: VITAMIN E 400 INTERNATIONAL UNITS CAP PO SCH (08:58)
[2020-07-20] MEDS: CARBAMIDE PEROXIDE 6.5% OTIC SOLN 15ML AU SCH ×2 (08:59→20:04)
[2020-07-20] MEDS: TIOTROPIUM INHALER/CAPSULE (SPIRIVA) INH SCH (09:00)
[2020-07-20] MEDS ORDERED: FUROSEMIDE 20 MG TAB PO SCH (09:00)
--- NOTE | 2020-07-20 09:22 | IPNPDOC ---
Text Note Date of Service The patient was seen on 07/20/20. NOTE SUBJECTIVE: The patient is a 75yo female who presented to the ED with dizziness. She is seen today at beside, and currently feels like the room is spinning. She was at her health baseline until Monday when she reached down under a cabinet and felt extremely dizzy. She started to fall, and caught herself on the sink counter, bumping her head on the edge of the counter in the process. She laid down in bed and tried to stay still to prevent the dizziness from worsening, but eventually had to call EMS to bring her to the hospital. This was the first event of its kind. She has a history of COPD, pulmonary hypertension, A-fib, mitral and tricuspid regurgitation, cardiomegaly, and HTN. She had no acute events last night. She is currently nauseous, but no episodes of vomiting. She is positive for mild coughing with yellow sputum. She is very sleepy and has been for some time, and has experienced a loss of appetite with weight loss. For the last several weeks she says that she has experienced headaches, chills, then fever. She has chronic sinusitis, some palpitations when she is dizzy. She denies diarrhea, constipation, or blood in the stool. Denies new rash. OBJECTIVE: VITALS: See below GENERAL: Patient is slightly dizzy at time of examination. Alert and oriented x3. HEENT: PERRL. Lips are acyanotic. There is no viable lesion from where the patient admits to bumping her head. Tongue midline. Slight horizontal nystagmus. CV: normal rate, irregularly irregular rhythm. S1 and S2 sounds heard. There is a murmur at the 5th ICS midaxillary line. Lungs: Rhonchi are heard on expiration b/l. Breath sounds are heard on inspiration. No rales or wheezing noted. Abdomen: Patient is obese. Abdomen is soft, nontender and nondistended. Extremities: +1 pitting edema to the shins. Fingers, toes and shins are tender to pressure. Neuro: CN II-VII, IX-XII is intact. There is some horizontal nystagmus. Tongue is midline. ASSESSMENT/PLAN: The patient is a 75yo woman with acute dizziness who presented to the ED with acute, prolonged dizziness, found to have nystagmus, and is concerning for vertigo vs syncopal episode. A head CT was negative for acute trauma or vascular events. A full syncope workup will be conducted to rule out polypharmacy or cardiorhythmic sources of syncope, and vestibular exercises will be conducted for vestibular neuritis vs labyrinthitis. 1. Dizziness -Continuous telemetry -Preform repeat EKG -Obtain Orthostatics -EKG on Jul 19 showed A-fib with rate of 76 -H&P Note states she was not hypoglycemic orthostatic at ER presentation. -PT/OT vestibular exercises -Meclizine 25 mg q6hrs 2. HTN -Hydrochlorothiazide 25mg daily PO -Metoprolol 25mg BID PO 3. A-fib -Eliquis 5mg BID PO 4. CHF -Lasix 20mg MWF, PO 5. COPD -Continue 2L O2 by nasal canula 6. Arthritis -Percocet 5mg/325mg Q6H PRN PO 7. DVT Prophylaxis -Patient is already on Eliquis. Disp: Pending clinical improvement of vertigo. Anticipated discharge in 24hrs VS,Damien, I+O VS, Damien, I+O Laboratory Tests 07/19/20 09:49 Vital Signs Date Time Temp Pulse Resp B/P (MAP) Pulse Ox O2 Delivery O2 Flow Rate FiO2 07/20/20 08:58 88 157/78 07/20/20 08:00 97.3 18 94 Nasal Cannula 2.0 I&O- Last 24 Hours up to 6 AM 07/20/20 05:59 Intake Total 640 ml Output Total 200 ml Balance 440 ml GME ATTESTATION E ATTESTATION My faculty preceptor for this patient encounter was physically present during the encounter and was fully available. All aspects of the patient interview, examination, medical decision making process, and medical care plan development were reviewed and approved by the faculty preceptor. The faculty preceptor is aware and concurs with the plan as stated in the body of this note and will attest to such by his/her cosignature. ATTENDING NOTE Patient was seen and examined by me personally with the residents/students. I agree with the above assessment and plan MARRY VELASQUEZ Jul 20, 2020 09:22 AIDAN PATEL MD Jul 27, 2020 11:35
[2020-07-20] MEDS ORDERED: MIRALAX *UNIT DOSE* 17GM PACKET PO PRN (14:15)
[2020-07-20] MEDS ORDERED: SENNA 8.6 MG TAB (SENOKOT) PO PRN (14:15)
[2020-07-20 16:00] VITALS: BP 118/57
[2020-07-20 20:00] VITALS: BP 153/70
[2020-07-21] MEDS: PERCOCET 5MG/325MG TAB PO PRN ×2 (02:20→08:57)
[2020-07-21] MEDS: LEVALBUTEROL 1.25 MG/0.5 ML CONCENTRATE NEB INH SCH ×3 (03:59→12:00)
[2020-07-21 04:12] VITALS: BP 145/69
[2020-07-21] MEDS: SLF 3 ML SYR IV SCH (05:12)
[2020-07-21] MEDS: METOCLOPRAMIDE INJ 10MG/2ML VIAL (J2765 PER 1) IV SCH ×2 (05:12→11:46)
[2020-07-21] MEDS: TIOTROPIUM INHALER/CAPSULE (SPIRIVA) INH SCH (07:48)
[2020-07-21 08:00] VITALS: BP 119/57
[2020-07-21 08:12] LABS: HEMATOCRIT 43.1 % (36.0-47.0); MEAN CORPUSCULAR HEMOGLOBIN 30.1 pg (27.0-33.0); MEAN CORPUSCULAR HGB CONC 30.2 g/dl (32.0-36.5); MEAN CORPUSCULAR VOLUME 99.8 fl (80.0-96.0); PLATELET COUNT, AUTOMATED 199 10^3/uL (150-450); RED BLOOD COUNT 4.32 10^6/uL (4.00-5.40)
[2020-07-21 08:44] LABS: CALCIUM LEVEL 8.6 MG/DL (8.8-10.2); CREATININE FOR GFR 0.97 MG/DL (0.55-1.30); GLOMERULAR FILTRATION RATE 59.3 (>39); POTASSIUM SERUM 3.6 MEQ/L (3.5-5.1)
[2020-07-21] MEDS: APIXABAN 5 MG TAB (ELIQUIS) PO SCH (08:55)
[2020-07-21 08:56] VITALS: BP 119/57
[2020-07-21] MEDS: VITAMIN D 1,000 INTERNATIONAL UNITS TABLET PO SCH (08:56)
[2020-07-21] MEDS: hydroCHLOROthiazide 25 MG TAB PO SCH (08:56)
[2020-07-21] MEDS: METOPROLOL TART 25 MG TABLET PO SCH (08:56)
[2020-07-21] MEDS: VITAMIN E 400 INTERNATIONAL UNITS CAP PO SCH (08:56)
[2020-07-21] MEDS: diazePAM 5 MG TAB PO SCH (08:56)
[2020-07-21] MEDS: ASCORBIC ACID 500 MG TAB PO SCH (08:56)
[2020-07-21] MEDS: CARBAMIDE PEROXIDE 6.5% OTIC SOLN 15ML AU SCH (08:58)
--- NOTE | 2020-07-21 09:18 | IPNPDOC ---
Text Note Date of Service The patient was seen on 07/21/20. NOTE Progress Note: The patient is a 75yo female, seen at bedside. She states that she awoke this morning feeling significantly more dizzy and weak than she had yesterday. She says that PT came in to do vestibular movements yesterday, during which she felt that she was on the ceiling and the nurses were rolling around on the ground. She states that she is seeing double. She is positive for chills but negative for fevers. She has been constipated for four days, and denied pyuria. Denies any nausea. She has eaten roughly half of her breakfast at time of interview. She was given meclizine on Jul 2, but this did not help with her vertigo. She also states that she was unable to swallow a Percocet pill, which she eventually coughed up "out of her lung." She has had a headache for the last two weeks that extends from the neck to the back of the head, which she believes is from neck strain from crocheting. OBJECTIVE: VITALS: See below GENERAL: Patient is lying in bed and talk to me, but she keeps her eyes closed due to dizziness. Alert and oriented x3. The patient was able to sit up and turn freely in bed for lung auscultation. CV: RRR. S1 and S2 sounds heard. There is a murmur noted in the L 5th ICS, midaxillary line. Patient reports pain on testing for capillary refill. <3s refill time. LUNGS: Rhonchi are heard in all lung abbasi b/l on exhalation. Some wheezing is noted in the L lung on inspiration. ABDOMEN: Abdomen is soft, nontender and nondistended. EXTREMITIES: There is +1 pitting edema in the legs, R leg has much more edema than the L leg, which the patient says is normal for her. NEURO: Eyes are PEERLA, and nystagmus is not noted today on horizontal finger movement, though the patient notes dizziness when she was following finger movements in all abbasi. Tongue is midline. ASSESSMENT/PLAN The patient is a 75yo woman experiencing dizziness and reports that the "room is spinning". She denies nausea or vomiting. CT scan from Jul 1 shows no acute vascular abnormalities, ruling out stroke. BP increases on standing, which makes orthostatic hypotension less likely. EKG in the ED Nov 1 showed atrial fibrillation, but continuous telemetry did not show any acute arrhythmias. Primary differential is vertigo from Labyrinthitis vs. Benign paroxysmal positional vertigo. 1. Vertigo -Keep for obervation overnight -Continue vestibular motions with PT -Telemetry does not show acute arrhythmias -Orthostatics negative -Continue Meclizine 25mg q6hrs. 2. HTN -Continue Hydrochlorothiazide 25mg daily PO -Continue Metoprolol 25mg BID PO 3. A-fib -Eliquis 5mg BID PO 4. CHF -Lasix 20mg MWF, PO 5. COPD -Continue 2L O2 by nasal canula 6. Arthritis -Percocet 5mg/325mg Q6H PRN PO 7. DVT Prophylaxis -Patient is already on Eliquis. Disp: Pending clinical improvement of vertigo. Anticipated discharge today VS,Fishbone, I+O VS, Fishbone, I+O Laboratory Tests 07/21/20 07:48 Vital Signs Date Time Temp Pulse Resp B/P (MAP) Pulse Ox O2 Delivery O2 Flow Rate FiO2 07/21/20 08:00 97.8 87 20 119/57 (77) 98 Nasal Cannula 2.0 I&O- Last 24 Hours up to 6 AM 07/21/20 06:00 Intake Total 810 ml Output Total 800 ml Balance 10 ml GME ATTESTATION GME ATTESTATION My faculty preceptor for this patient encounter was physically present during the encounter and was fully available. All aspects of the patient interview, ex amination, medical decision making process, and medical care plan development were reviewed and approved by the faculty preceptor. The faculty preceptor is aware and concurs with the plan as stated in the body of this note and will attest to such by his/her cosignature. MARRY VELASQUEZ Jul 21, 2020 09:18 ABUNDIO COLLINS DO Jul 21, 2020 16:19
[2020-07-21 09:59] LABS: MAGNESIUM LEVEL 1.7 MG/DL (1.8-2.4)
[2020-07-21] MEDS ORDERED: MECLIZINE 25 MG TABLET PO ONE (11:15)
[2020-07-21] MEDS ORDERED: MECL1TAB31 PO (11:28)
[2020-07-21] MEDS ORDERED: MAG SULF 1GM/100ML (MAG RUN) 1 GM in IV 1 EA IV ONE (11:45)
--- NOTE | 2020-07-21 11:57 | DS.PDOC ---
Discharge Summary General Date of Admission Jul 19, 2020 at 09:08 Date of Discharge Jul 21, 2020 Attending Physician: AIDAN PATEL MD Specialist/Consultants Involve: A Discharge Summary PROCEDURES PERFORMED DURING STAY: None. ADMITTING DIAGNOSES: 1. Vertigo. 2. HTN 3. COPD 4. CHF 5. Atrial Fibrillation 6. Arthritis DISCHARGE DIAGNOSES: 1. Vertigo. 2. HTN 3. COPD 4. CHF 5. Atrial Fibrillation 6. Arthritis COMPLICATIONS/CHIEF COMPLAINT: Vertigo. HISTORY OF PRESENT ILLNESS: The patient is a 75yo female, who presented to the ED on Jul 19 with severe dizziness and lightheadedness. She was at her health baseline until Jul 18, during which she reached underneath the bathroom counter and became extremely dizzy, and felt like the room was spinn ing. She began to fall, but caught herself and bumped her head on the sink counter. She was able to return to her bed and laid down, but the dizziness did not fredy. She reported that the pain was much worse when moving her head to the R. She remained dizzy through to the next day, and eventually had her bring her to the ED, where she was admitted. HOSPITAL COURSE: Patient arrived at the ED on the morning of Jul 19. She received a Heat CT, Cervical Spine CT, and Chest X-Ray in the ED, which did not show evidence of acute trauma or vascular events such as stroke. She was prescribed Meclizine for treatment of her nausea and vertigo. The patient was put on continuous telemetry, which showed some chronic paroxysmal atrial fibrillation but no acute events. The patient's neurological exam was normal except for horizontal nystagmus. Orthostatics were also negative. PT evaluated the patient and believed this to be vestibular vertigo. PT conducted vestibular motions and treatments on Jul 20, which was initially successful. The patient was still dizzy on Jul 21, but not vomiting, her heart rate was controlled. She left the hospital before being officially discharged on Jul 21, 2020. Plans were made to continue her on meclizine 25mg PO as needed and followup with her PCP for symptom m anagement. DISCHARGE MEDICATIONS: Please see below. ALLERGIES: Please see below. PHYSICAL EXAMINATION ON DISCHARGE: VITAL SIGNS: Please see below. GENERAL: Patient is lying in bed and talking, but she keeps her eyes closed due to dizziness. Alert and oriented x3. The patient was able to sit up and turn freely in bed for lung auscultation. CV: RRR. S1 and S2 sounds heard. There is a murmur noted in the L 5th ICS, midaxillary line. Patient reports pain on testing for capillary refill. <3s re fill time. LUNGS: Rhonchi are heard in all lung abbasi b/l on exhalation. Some wheezing is noted in the L lung on inspiration. ABDOMEN: Abdomen is soft, nontender and nondistended. EXTREMITIES: There is +1 pitting edema in the legs, R leg has much more edema than the L leg, which the patient says is normal for her. NEURO: Eyes are PEERLA, and nystagmus is not noted today on horizontal finger m ovement, though the patient notes dizziness when she was following finger movements in all abbasi. Tongue is midline. LABORATORY DATA: Please see below. IMAGING: Jul 19, [address] Rodarte IMPRESSION: Vascular calcification, minimal generalized volume loss, and mild small vessel changes. No acute intracranial abnormality. No skull fracture or intracranial injury seen. Jul 19, [address] Rodarte IMPRESSION: Moderate cardiomegaly. Left perihilar linear fibrosis. Otherwise no acute disease. Jul 19, [address], Dr. Rodarte Fairly advanced degenerative spondylosis changes. No traumatic abnormality noted. PROGNOSIS: Good ACTIVITY: As tolerated. DIET: Normal DISCHARGE INSTRUCTIONS: 1. Continue Meclizine 25mg once daily PO until symptoms resolve. ITEMS TO FOLLOWUP ON ON OUTPATIENT: 1. Followup with PCP in 7-10d for vestibular symptoms. 2. Followup with PCP in 7-10d for HTN, CHF, and COPD DISCHARGE CONDITION: Stable. TIME SPENT ON DISCHARGE: Greater than minutes. Vital Signs/I&Os Vital Signs Date Time Temp Pulse Resp B/P (MAP) Pulse Ox O2 Delivery O2 Flow Rate FiO2 07/21/20 09:27 20 Room Air 07/21/20 08:56 87 119/57 07/21/20 08:00 2.0 07/21/20 08:00 97.8 98 I&O- Last 24 Hours up to 6 AM 07/21/20 05:59 Intake Total 810 ml Output Total 800 ml Balance 10 ml Laboratory Data Labs 24H Laboratory Tests 2 07/21/20 07:48: Nucleated Red Blood Cells % (auto) 0.0, Anion Gap 5L, Glomerular Filtration Rate 59.3, Calcium Level 8.6L, Magnesium Level 1.7L CBC/BMP Laboratory Tests 07/21/20 07:48 Microbiology Microbiology 07/19/20 Respiratory Virus Panel (PCR) (TONG) - Final, Complete Discharge Medications Scheduled Apixaban (Eliquis) 5 Mg Tablet, 5 MG PO BID, (Reported) Ascorbic Acid (Ascorbic Acid) 500 Mg Tablet, 500 MG PO DAILY, (Reported) Cholecalciferol (Vitamin D3) (Vitamin D3) 1,000 Unit Tablet, 2,000 UNITS PO DAILY, (Reported) Diazepam (Valium) 5 Mg Tab, 5 MG PO TID, (Reported) Furosemide (Furosemide) 20 Mg Tablet, 20 MG PO 3XW, (Reported) MON, MON, MON Hydrochlorothiazide (Hydrochlorothiazide) 12.5 Mg Tab, 25 MG PO DAILY, (Reported) Magnesium Oxide (Magnesium) 400 Mg Capsule, 400 MG PO DAILY, (Reported) Meclizine HCl (Meclizine HCl) 25 Mg Tablet, 25 MG PO Q8H Metoprolol Tartrate (Metoprolol Tartrate) 25 Mg Tablet, 25 MG PO BID, (Reported) Potassium Gluconate (Potassium Gluconate) 99 Mg Tablet, 2 MEQ PO BID, (Reported) Tiotropium [place] (Spiriva) 18 Mcg Cap.w.dev, 1 CAP INH DAILY, (Reported) Vitamin E (Vitamin E) 400 Unit Capsule, 400 UNIT PO DAILY, (Reported) Scheduled PRN Albuterol Sulf (Albuterol Sulfate) 2.5 Mg/3 Ml Nebu, 1 VIAL NEB Q4H PRN for SOB/WHEEZING, (Reported) Albuterol Sulfate (Proair Hfa) 108 Mcg/Act Aer, 2 PUFF INH QID PRN for SHORTNESS OF BREATH, (Reported) Oxycodone HCl/Acetaminophen (Percocet 7.5-325 mg Tablet) 1 Each Tablet, 1 TAB PO TID PRN for PAIN, (Reported) Allergies Coded Allergies: adhesive tape (Verified Allergy, Intermediate, RASH, 12/20/18) latex (Verified Allergy, Intermediate, RASH, 12/20/18) GME ATTESTATION GME ATTESTATION My faculty preceptor for this patient encounter was physically present during the encounter and was fully available. All aspects of the patient interview, examination, medical decision making process, and medical care plan development were reviewed and approved by the faculty preceptor. The faculty preceptor is aware and concurs with the plan as stated in the body of this note and will attest to such by his/her cosignature. ATTENDING NOTE Patient was seen and examined by me personally with the residents/students. I agree with the above assessment and plan MARRY VELASQUEZ Jul 21, 2020 11:57 AIDAN PATEL MD Jul 27, 2020 11:36
== END 2020-07-21 13:19 | disposition left against medical advice (07) ==
LOC: M ED 09:07 → M ED INP 09:08 → ENRESERV 14:00 → M PCU 15:03
PROVIDERS: ADMIT General Practice; ATTEND General Practice
DX: R42 Dizziness and giddiness (principal); I10 Essential (primary) hypertension; J44.9 Chronic obstructive pulmonary disease, unspecified; I50.9 Heart failure, unspecified; I48.91 Unspecified atrial fibrillation; M13.89 Other specified arthritis, multiple sites; Z79.899 Other long term (current) drug therapy; Z91.040 Latex allergy status; Z79.01 Long term (current) use of anticoagulants; G47.33 Obstructive sleep apnea (adult) (pediatric); F17.218 Nicotine dependence, cigarettes, with other nicotine-induced disorders; E66.9 Obesity, unspecified
CPT/HCPCS: 36415; 70450; 71045; 72125; 80048; 82550; 82553; 83735; 84439; 84443; 84484; 85025; 85027; 85610; 85730; 87486; 87581; 87633; 87798; 93005; 93041; 94640; 94760; 96361; 96374; 97112; 97116; 97162; 97165; 97530; 99285; G0378; J2765; J3360; J3475

== ENCOUNTER 2020-10-18 00:36 | Inpatient (IN) | payer MEDICARE, OTHER ==
[~2020-10-18] VITALS: Ht 147.3 cm; Wt 81.5 kg
[~2020-10-18 00:36] MED LIST changes: +FURO20TA2 PO; +MECL1TAB31 PO; +POTA99TA5 PO
--- OUTSIDE RECORDS SUMMARY | 2020-10-18 00:41 | CCD | Continuity of Care Document ---
Author Organization Unknown Address Unknown Phone Unavailable Care Team Providers Care Textile Supervisor Name Role Phone Shirley Angulo OD AUTM Unavailable Lucy Diego COMPOSITION PROFESSOR AUTM [phone] [facility] AUT[facility] [phone] Problems Active Problems Provider Date Arthralgia of the ankle and/or foot Divya Chang FNP Onse t: 04/05/2017 Chronic obstructive pulmonary disease with (acute) exa cerbation Divya Chang FNP Onset: 04/05/2017 Essential hypertension Divya Chang FNP Onset: 04/05/2017 Unspecified osteoarthritis, unspecified site Divya Chang FNP Onset: 04/05/2017 Allergic rhinitis Divya Chang FNP Onset: 04/05/2017 Vitamin D deficiency Divya Chang FNP Onset: 04/05/2017 Anxiety state Divya Chang FNP Onset: 04/05/2017 Social History Type Date Description Comments Sex Unknown ETOH Use Denies alcohol use Tobacco Use Start: Unknown Patient is a current smoker, smo kes every day 1 1/2 packs per day Allergies, Adverse Reactions, Alerts Active Allergies Reaction Severity Comments Date Latex SKIN TURNS RED WITH ITCHING BURNING 10/25/2013 Breo Ellipta TACHYCARDIA 02/23/2016 Medications Active Medications SIG Qnty Indications Ordering Provide r Date Potassium Chloride Kari ER 10Meq Tablets ER 1 by mouth every am 30tabs Soila Tran 07/17/2020 Potassium Chloride Kari ER 20Meq Tablets ER 2 by mouth every day 60tabs TEJAS Casillas JR 06/23/2020 Spiriva Handihaler 18mcg Capsules 1 inhalation daily 90caps TEJAS Casillas JR 2019 Furosemide 20mg Tablets 1 by mouth Monday, Monday, Monday 90tabs TEJAS Casillas JR 06/08 Prednisone 20mg Tablets take 1tablet by mouth for 3 days and then half a tablet by mouth for two days 4tabs TEJAS Casillas JR 02/24/2020 Amoxicillin 500mg Capsules 1 capsule tid for 10 days. 30caps Divya Chang FNP 02/21/2020 Metoprolol Tartrate 25mg Tablets Take One Tablet By Mouth Twice A Day 180tabs Rudi Rain 10/22/2018 Eliquis 5mg Tablets Take One Tablet By Mouth Twice A Day 180tabs Shanta Beltran M.D. 2018 [facility] Gentle Laxative Womens 5mg Tab lets Divya Shabazz FNP 09/06/2018 Stool Softener 100mg Tablets Divya Washington FNP 09/06/2018 Oxycodone-Acetaminophen 7.5-325mg Tablets 1 by mouth three times a day as needed pain dx:m15.9 90tabs TEJAS Casillas JR 09/06/2018 Magnesium 27 500(27mg) mg Tablets 1 by mouth every day Shanta Beltran M.D. 03/19/20 18 Vitamin D3 Super Strength 2000Unit Tablets 1 by mouth every day Rudi Tran 04/07/2017 Activa Graduated Therapy 20-30MMHG/Knee High/Large Misc use as directed closed toe 1Pair R60.0 Shanta alvarado M.D. 04/07/2017 Proair HFA 108(90Base) mcg/Act Aer osol Inhale Two Puffs By Mouth Four Times A Day as Needed 25.5units Divya Chang FNP 03/07/2016 Walker [place] Wheels/5 Adjustment Holes/ -09/25" -09/25" Misc dx: 719.47, 496 Divya Chang FNP 08/2015 Albuterol Sulfate (2 .5mg/3ML) 0.083% Nebulizer use via aerosol neb every 2-4 hours as needed DX: J44.9 360Via l Shanta Beltran M.D. 06/05/2014 Diazepam 5mg Tablets 1 by mouth three times a day as needed anxiety 90tabs TEJAS Casillas JR 10/25/2013 Vitamin C 500mg Tablets 1 po qd winter Divya Chang FNP Vitamin E 400Unit Capsules 1 po qd 100caps Unknown Zovirax 5% Cream Apply 6X A Day Q3HRS X 7Days 1units Divya Chang FNP Nebulizer prn Unknown Hydrochlorothiazide 25mg Tablets Take One Tablet By Mouth Every Day 90tabs Divya Chang FNP History Medications Furosemide 20mg Tablets 1 by mouth every day 90tabs TEJAS Casillas JR 020 - 06/12/2020 Immunizations CPT Code Status Date Vaccine Lot # [id number] Refused 09/06/2018 Influenza Virus Vaccine, Quadrivalent ([id number]), Derived From Cell [id number] Refused 09/06/2018 Shingrix Zoster Vaccine (HZV), Recombinant, Subunit, Adjuvanted [id number] Refused 09/06/2018 Zoster Vaccine [id number] Refused 09/06/2018 Pneumovax 23 [id number] Refused 09/06/2018 Adacel- Tetanus Diphtheria P ertussis (Age64 & Under) 65070 Refused 09/06/2018 Prevnar 13 [id number] Refused 10/25/2013 Fluvirin Virus Vaccine Vital Signs Date Vital Result Comment 06/22/2020 3:31pm BP Systolic 120 mmHg BP Diastolic 70 mmHg Heart Rate 82 /min Height 58 inches 4'10" Weight 190.00 lb BMI (Body Mass Index) 39.7 kg/m2 06/08/2020 10:50am BP Systolic 130 mmHg BP Diastolic 70 mmHg Heart Rate 89 /min Height 58 inches 4'10" Weight 187.00 lb O2 % BldC Oximetry 96 % With O2 BMI (Body Mass Index) 39.1 kg/m2 Results Test Acquired Date Facility Test Result H/L Range Note Laboratory test finding 07/19/2020 [facility] [address] [place] [address] [phone] Bedside Glucose 105 mg/dL Normal 83-110 CBC With Differential 07/19/2020 [facility] [address] [place] [address] [phone] White Blood Count 10.5 10 High 4.0-10.0 Red Blood Count 4.36 10 Normal 4.00-5.40 Hemoglobin 13.3 g/dL Normal 12.0-15.5 Hematocrit 43.2 % Normal 36.0-47.0 Mean Corpuscular Volume 99.1 fl High 80.0-96.0 Mean Corpuscular Hemoglobin 30.5 pg Normal 27.0-33.0 Mean Corpuscular HGB Conc 30.8 g/dL Low 32.0-36.5 Red Cell Distribution Width 13.2 % Normal 11.5-14.5 Platelet Count, Automated 207 10 Normal 150-450 Neutrophils % 74.5 % High 36.0-66.0 Lymph % 15.8 % Low 24.0-44.0 Broome % 5.8 % High 0.0-5.0 Eos % 3.0 % Normal 0.0-3.0 Baso % 0.5 % Normal 0.0-1.0 Immature Granulocyte % 0.4 % Normal 0-3.0 Nucleated Red Blood Cell % 0.0 % Normal 0-0 Neutrophils # 7.8 10 Normal 1.5-8.5 Lymph # 1.7 10 Normal 1.5-5.0 Broome # 0.6 10 Normal 0.0-0.8 Eos # 0.3 10 Normal 0.0-0.5 Baso # 0.1 10 Normal 0.0-0.2 Prothrombin Time/Inr 07/19/2020 [facility] [address] [place] [address] [phone] Prothrombin Time 16.7 seconds High 12.5-14.3 Inr 1.32 Normal 1 Laboratory test finding 07/19/2020 [facility] [address] [place] [address] [phone] Partial Thromboplastin Time 43.2 seconds High 24 .2-38.5 Cardiac Marker Panel 07/19/2020 [facility] enter [address] [place] [address] [phone] CPK Creatine Phosphokinase 38 U/L Normal 26-19 2 CK-MB Value Mass < 1.0 NG/ML Normal <3.6 MB/CK Relative Index 2.63 Normal < Or =4 2 Troponin I < 0.02 NG/ML Normal < 0.10 3 Basic Metabolic Profile 07/19/2020 [place] [id number] [phone] Glucose, Fasting 131 mg/dL High 70-100 Blood Urea Nitrogen 21 mg/dL High 7-18 Creatinine For GFR 1.02 mg/dL Normal 0.55-1.30 Glomerular Filtration Rate 55.9 Normal >39 4 Sodium Level 141 mEq/L Normal 136-145 Potassium Serum 3.6 mEq/L Normal 3.5-5.1 Chloride Level 101 mEq/L Normal 98-107 Carbon Dioxide Level 38 mEq/L High 21-32 Anion Gap 2 mEq/L Low 8-16 Calcium Level 8.9 mg/dL Normal 8.8-10.2 Laboratory test finding 07/19/2020 [place] [address] [phone] Magnesium Level 1.6 mg/dL Low 1.8-2.4 Thyroid Stimulating Hormone 1.440 uIU/ML Normal 0.358-3.740 Free T4 1.05 ng/dL Normal 0.76-1.46 Basic Metabolic Panel 06/22/2020 [facility] Dat[employer] Computer Consultant: Dr Murali Castorena [place], [place] [id number] [phone] Glucose 131 mg/dL High 74 - 99 5 BUN 26 mg/dL High 7 - 18 Creatinine 1.1 mg/dL 0.6 - 1.3 Sodium 145 mEq/L 136 - 145 Potassium 3.1 mEq/L Low 3.5 - 5.1 Chloride 102 mEq/L 98 - 107 Carbon Dioxide 36 mEq/L High 21 - 32 Calcium 8.8 mg/dL 8.5 - 10.1 GFR 48 mL/min Low >60 GFR 58 mL/min Low >60 6 Laboratory test finding 06/08/2020 [facility] [employer] Computer Consultant: [place] [address] [phone] B-Type Natriuretic Peptide 189.0 pg/mL High 0.0 - 100.0 Basic Metabolic Panel 06/08/2020 [facility] [employer] Computer Consultant: [place] [address] [phone] Glucose 110 mg/dL High 74 - 99 7 BUN 18 mg/dL 7 - 18 Creatinine 0.9 mg/dL 0.6 - 1.3 Sodium 141 mEq/L 136 - 145 Potassium 3.6 mEq/L 3.5 - 5.1 Chloride 101 mEq/L 98 - 107 Carbon Dioxide 35 mEq/L High 21 - 32 Calcium 9.0 mg/dL 8.5 - 10.1 GFR >= 60 mL/min >60 GFR >= 60 mL/min >60 8 Respiratory Panel 05/27/2020 [facility] [address] [place], [place] [id number] [phone] Respiratory Panel This respiratory <SEE NOTE> 9 Laboratory test finding 05/27/[address] [id number] [phone] NT-Pro BNP 2410 pg/mL High <450 Basic Metabolic Profile 05/27/2020 [facility] [address] [place] [address] [id number] [phone] Glucose, Fasting 118 mg/dL High 70-100 Blood Urea Nitrogen 15 mg/dL Normal 7-18 Creatinine For GFR 0.69 mg/dL Normal 0.55-1.30 Glomerular Filtration Rate > 60.0 Normal >39 1 0 Sodium Level 142 mEq/L Normal 136-145 Potassium Serum 3.8 mEq/L Normal 3.5-5.1 Chloride Level 98 mEq/L Normal 98-107 Carbon Dioxide Level 42 mEq/L High 21-32 Anion Gap 2 mEq/L Low 8-16 Calcium Level 9.0 mg/dL Normal 8.8-10.2 Liver Profile 05/27/2020 [facility] [address] [place], [place] [id number] [phone] Ast/Sgot 10 U/L Normal 7-37 Alt/SGPT 11 U/L Low 12-78 Alkaline Phosphatase 79 U/L Normal 45-117 Bilirubin,Total 1.1 mg/dL High 0.2-1.0 Bilirubin,Direct 0.4 mg/dL High 0.0-0.2 Total Protein 6.5 GM/DL Normal 6.4-8.2 Albumin 3.3 GM/DL Normal 3.2-5.2 Albumin/Globulin Ratio 1.0 Low 1.2-2.2 Cardiac Marker Panel 05/27/2020 [facility] enter [address] [place] [id number] [phone] CPK Creatine Phosphokinase 32 U/L Normal 26-19 2 CK-MB Value Mass 1.1 NG/ML Normal <3.6 MB/CK Relative Index 3.44 Normal < Or =4 11 Troponin I < 0.02 NG/ML Normal < 0.10 12 Prothrombin Time/Inr 05/27/2020 [facility] enter [address] [place] [address] [phone] Prothrombin Time 16.2 seconds High 11.8-14.0 Inr 1.28 Normal 13 CBC With Differential 05/27/[address] [address] [phone] White Blood Count 11.7 10 High 4.0-10.0 Red Blood Count 4.31 10 Normal 4.00-5.40 Hemoglobin 13.5 g/dL Normal 12.0-15.5 Hematocrit 43.7 % Normal 36.0-47.0 Mean Corpuscular Volume 101.4 fl High 80.0-96.0 Mean Corpuscular Hemoglobin 31.3 pg Normal 27.0-33.0 Mean Corpuscular HGB Conc 30.9 g/dL Low 32.0-36.5 Red Cell Distribution Width 13.4 % Normal 11.5-14.5 Platelet Count, Automated 181 10 Normal 150-450 Neutrophils % 83.4 % High 36.0-66.0 Lymph % 9.5 % Low 24.0-44.0 Broome % 4.9 % Normal 0.0-5.0 Eos % 1.3 % Normal 0.0-3.0 Baso % 0.4 % Normal 0.0-1.0 Immature Granulocyte % 0.5 % Normal 0-3.0 Nucleated Red Blood Cell % 0.0 % Normal 0-0 Neutrophils # 9.8 10 High 1.5-8.5 Lymph # 1.1 10 Low 1.5-5.0 Broome # 0.6 10 Normal 0.0-0.8 Eos # 0.2 10 Normal 0.0-0.5 Baso # 0.1 10 Normal 0.0-0.2 Arterial Blood Gas 05/27/2020 [facility] [address] [place] [address] [phone] ABG pH (Arterial) 7.402 units Normal 7.350-7.450 ABG Partial Pressure Co2 56.9 mmHg High 35.0-45.0 ABG Partial Pressure O2 131.8 mmHg High 75.0-100.0 ABG Total Co2 36.4 mEq/L High 23.0-31.0 ABG Hco3 34.6 mEq/L High 22.0-26.0 ABG Base Excess 7.9 High -2.0-2.0 ABG Standard Hco3 31.8 mEq/L High 22.0-26.0 ABG O2 Saturation 98.9 % Normal 95.0-99.0 CBC With Differential 02/23/2020 [place] [id number] [place], [place] [address]278 [phone] White Blood Count 13.0 10 High 4.0-10.0 Red Blood Count 4.41 10 Normal 4.00-5.40 Hemoglobin 13.6 g/dL Normal 12.0-15.5 Hematocrit 44.2 % Normal 36.0-47.0 Mean Corpuscular Volume 100.2 fl High 80.0-96.0 Mean Corpuscular Hemoglobin 30.8 pg Normal 27.0-33.0 Mean Corpuscular HGB Conc 30.8 g/dL Low 32.0-36.5 Red Cell Distribution Width 13.2 % Normal 11.5-14.5 Platelet Count, Automated 183 10 Normal 150-450 Neutrophils % 82.2 % High 36.0-66.0 Lymph % 9.1 % Low 24.0-44.0 Broome % 6.6 % High 0.0-5.0 Eos % 1.3 % Normal 0.0-3.0 Baso % 0.4 % Normal 0.0-1.0 Immature Granulocyte % 0.4 % Normal 0-3.0 Nucleated Red Blood Cell % 0.0 % Normal 0-0 Neutrophils # 10.7 10 High 1.5-8.5 Lymph # 1.2 10 Low 1.5-5.0 Broome # 0.9 10 High 0.0-0.8 Eos # 0.2 10 Normal 0.0-0.5 Baso # 0.1 10 Normal 0.0-0.2 Laboratory test finding 02/23/2020 [place] [id number] [phone] Erythrocyte Sedimentation Rate 25 mm/hr Normal 0 -30 Basic Metabolic Profile 02/23/2020 [place] [id number] [phone] Glucose, Fasting 103 mg/dL High 70-100 Blood Urea Nitrogen 17 mg/dL Normal 7-18 Creatinine For GFR 0.62 mg/dL Normal 0.55-1.30 Glomerular Filtration Rate > 60.0 Normal >39 1 4 Sodium Level 144 mEq/L Normal 136-145 Potassium Serum 3.8 mEq/L Normal 3.5-5.1 Chloride Level 101 mEq/L Normal 98-107 Carbon Dioxide Level 39 mEq/L High 21-32 Anion Gap 4 mEq/L Low 8-16 Calcium Level 8.2 mg/dL Low 8.8-10.2 Laboratory test finding 02/23/[address] [address] [phone] Uric Acid 7.8 mg/dL High 2.6-6.0 C Reactive Protein Quantitativ 4.54 mg/dL High 0.00-0.30 1 THERAPUTIC HUMAN INR VALUES INDICATIONS NORMAL RANGES PROPHYLAXIS/TREATMENT OF: VENOUS THROMBOSIS 2.0-3.0 PULMONARY EMBOLISM 2.0-3.0 PREVENTION OF SYSTEMIC EMBOLISM FROM: TISSUE HEART VALVES 2.0-3.0 ACUTE MYOCARDIAL INFARCTION 2.0-3.0 VALVULAR HEART DISEASE 2.0-3.0 ATRIAL FIBRILLATION 2.0-3.0 MECHANICAL VALVES(HIGH RISK) 2.5-3.5 RECURRENT MYOCARDIAL INFARCTION 2.5-3.5 2 DIAGNOSIS CRITERIA MMB ng/ml Relative Index (RI) NON-AMI < or = 5 N/A MEYER ZONE > 5 < or = 4 AMI > 5 > 4 3 Troponin I Reference Interva l for [employer] LOCI: 99th Percentile= 0.00-0.045 ng/ml Risk Stratification: <= 0.10 ng/ml Decreased Risk for Adverse Clinical Events. 0.10-1.50 ng/ml Increased Risk for Adv erse Clinical Events. Evaluation of additional criterion and/or repeat testing in 2-6 hours is suggested to rule out myocardial damage. >= 1.50 ng/ml Indicative of Myocardial Injury. 4 Units are mL/min/1.73 m2 Chronic Kidney Disease Staging per NKF: Stage I & II GFR >=60 Normal to Mildly Decreased Stage III GFR 30-59 Moderately Decreased Stage IV GFR 15-29 Severely Decreased Stage V GFR <15 Very Little GFR Left ESRD GFR <15 on NURSE AIDE EVALUATOR 5 100-125 mg/dL PRE-DIABET ES/FASTING >126 mg/dL DIABETES/FASTING 6 CHRONIC KIDNEY DISEASE STAGI NG PER NKF STAGE I & II GFR >= 60 NORMAL TO MILDLY DECREASED STAGE III GFR 30-59 MODERATELY DECREASED STAGE IV GFR 15-29 SEVERELY DECREASED STAGE V GFR <15 VERY LITTLE GFR LEFT ESRD GFR <15 ON NURSE AIDE EVALUATOR 7 100-125 mg/dL PRE-DIABET ES/FASTING >126 mg/dL DIABETES/FASTING 8 CHRONIC KIDNEY DISEASE STAGI NG PER NKF STAGE I & II GFR >= 60 NORMAL TO MILDLY DECREASED STAGE III GFR 30-59 MODERATELY DECREASED STAGE IV GFR 15-29 SEVERELY DECREASED STAGE V GFR <15 VERY LITTLE GFR LEFT ESRD GFR <15 ON NURSE AIDE EVALUATOR 9 This respiratory PCR panel d etects Influenza A H1, H3 and 2008 H1 viruses, Influenza B virus, Resp iratory Syncytial Virus, Human metapneumovirus, Parainfluenza virus 1, 2, 3 and 4, Adenovirus, Rhinovirus/Enterovirus, Coronavirus HKU1, NL63, OC43, 229E and SARS-CoV-2 (COVID 19), Bordetella pertussis, Bordetella parapertussis, Mycoplasma pneumoniae and Chlamydia pneumoniae. NEGATIVE by MULTIPLEXED NUCLEIC ACID PCR SARS-CoV-2 (COVID 19) NEGATIVE - SARS-CoV-2 (COVID19) 10 Units are mL/min/1.73 m2 Chronic Kidney Disease Staging per NKF: Stage I & II GFR >=60 Normal to Mildly Decreased Stage III GFR 30-59 Moderately Decreased Stage IV GFR 15-29 Severely Decreased Stage V GFR <15 Very Little GFR Left ESRD GFR <15 on NURSE AIDE EVALUATOR 11 DIAGNOSIS CRITERIA MMB ng/ml Relative Index (RI) NON-AMI < or = 5 N/A MEYER ZONE > 5 < or = 4 AMI > 5 > 4 12 Troponin I Reference Interva l for [employer] LOCI: 99th Percentile= 0.00-0.045 ng/ml Risk Stratification: <= 0.10 ng/ml Decreased Risk for Adverse Clinical Events. 0.10-1.50 ng/ml Increased Risk for Adv erse Clinical Events. Evaluation of additional criterion and/or repeat testing in 2-6 hours is suggested to rule out myocardial damage. >= 1.50 ng/ml Indicative of Myocardial Injury. 13 THERAPUTIC HUMAN INR VALUES INDICATIONS NORMAL RANGES PROPHYLAXIS/TREATMENT OF: VENOUS THROMBOSIS 2.0-3.0 PULMONARY EMBOLISM 2.0-3.0 PREVENTION OF SYSTEMIC EMBOLISM FROM: TISSUE HEART VALVES 2.0-3.0 ACUTE MYOCARDIAL INFARCTION 2.0-3.0 VALVULAR HEART DISEASE 2.0-3.0 ATRIAL FIBRILLATION 2.0-3.0 MECHANICAL VALVES(HIGH RISK) 2.5-3.5 RECURRENT MYOCARDIAL INFARCTION 2.5-3.5 14 Units are mL/min/1.73 m2 Chronic Kidney Disease Staging per NKF: Stage I & II GFR >=60 Normal to Mildly Decreased Stage III GFR 30-59 Moderately Decreased Stage IV GFR 15-29 Severely Decreased Stage V GFR <15 Very Little GFR Left ESRD GFR <15 on NURSE AIDE EVALUATOR Procedures Date Code Description Status 06/06/2018 [id number] Bone Mineral Density Test [facility] 06/06/2018 [id number] Mammogram Completed 03/09/2017 [id number] Mammogram Completed 07/11/2016 [id number] Mammogram Completed 03/10/2015 [id number] Mammogram Completed 02/19/2015 [id number] Mammogram Completed 08/28/2013 [id number] Bone Mineral Density Test [facility] 08/28/2013 [id number] Mammogram Completed Medical Devices Description No Information Available Encounters Type Date Location Provider Dx Diagnosis Office Visit 06/22/2020 3:20p [facility]aged [facility], [place] I50.32 Chronic diastolic (congestiv e) heart failure J44.9 Chronic obstructive pulmonar y disease, unspecified I10 Essential (primary) hyperten lisa Office Visit 06/08/2020 10:40a [facility], [place] J44.9 Chronic obstructive pulmonar y disease, unspecified I50.32 Chronic diastolic (congestiv e) heart failure I10 Essential (primary) hyperten lisa F17.210 Nicotine dependence, cigaret monet, uncomplicated I48.0 Paroxysmal atrial fibrillati on M15.9 Polyosteoarthritis, unspecif ied Office Visit 02/24/2020 2:40p [facility] TEJAS Rodrigez JR M10.042 Idiopathic gout, left hand J44.9 Chronic obstructive pulmonar y disease, unspecified Assessments Date Code Description Provider 06/22/2020 I50.32 Chronic diastolic (congestive) h eart failure TEJAS Casillas JR 06/22/2020 J44.9 Chronic obstructive pulmonary di sease, unspecified TEJAS Casillas JR 06/22/2020 I10 Essential (primary) hypertension TEJAS Casillas JR 06/08/2020 J44.9 Chronic obstructive pulmonary di sease, unspecified TEJAS Casillas JR 06/08/2020 I50.32 Chronic diastolic (congestive) h eart failure TEJAS Casillas JR 06/08/2020 I10 Essential (primary) hypertension TEJAS Casillas JR 06/08/2020 F17.210 Nicotine dependence, cigarettes, uncomplicated TEJAS Casillas JR 06/08/2020 I48.0 Paroxysmal atrial fibrillation R TEJAS Castillo JR 06/08/2020 M15.9 Polyosteoarthritis, unspecified TEJAS Casillas JR 02/24/2020 M10.042 Idiopathic gout, left hand TEJAS Lutz JR 02/24/2020 J44.9 Chronic obstructive pulmonary di sease, unspecified TEJAS Casillas JR Plan of Treatment Future Appointment(s):* 12/07/2020 1:00 pm - TEJAS Casillas JR at [facility] 06/22/2020 - TEJAS Casillas JR* I50.32 Chronic diastolic (congestive) heart failure* Comments:* BMP pending, added Lasix as she is retaining fluid, Due to BMP showing TARA reduced Lasix to MWF, add potassium due to 3.1 on BMP. Swelling and breathing was better * J44.9 Chronic obstructive pulmonary disease, unspecified* Comments:* BMP and BNP pending, adding Lasix and Spiriva, RTC 2 weeks for recheck, advised elevation and salt restrictions. Continue nasal oxygen * I10 Essential (primary) hypertension* Comments:* She is currently at JNC-8 goals, diet and exercise were discussed including Mediterranean diet and 30 minutes of aerobic exercise daily, continue current medication regimen at this time. Functional Status Description No Information Available Mental Status Description No Information Available Referrals Description No Information Available
--- OUTSIDE RECORDS SUMMARY | 2020-10-18 00:41 | CCD | Continuity of Care Document ---
Author Organization Unknown Address Unknown Phone Unavailable Care Team Providers Care Plaster Patternmaker Name Role Phone Shirley Angulo OD AUTM Unavailable Lucy Diego ABATTOIR MANAGER AUTM [phone] [facility] [phone] Problems Active Problems Provider Date Arthralgia of [...] Needed 25.5units Divya Chang FNP 03/07/2016 [facility] [place] [facility]/5 Adjustment Holes/ -09/25" -09/25" Misc dx: [...] CPT Code Status Date Vaccine Lot # [id number] Refused 09/06/2018 Influenza Virus Vaccine, Quadrivalent ([id number]), Derived From Cell 35571 Refused 09/06/2018 Shingrix Zoster Vaccine (HZV), Recombinant, Subunit, Adjuvanted 47792 Refused 09/06/2018 Zoster Vaccine 35873 Refused 09/06/2018 Pneumovax 23 [id number] Refused 09/06/2018 Adacel- Tetanus Diphtheria P ertussis (Age64 & Under) 20671 Refused 09/06/2018 Prevnar 13 [id number] Refused 10/25/2013 [...] H/L Range Note Laboratory test finding 07/19/2020 [facility] [address] [place] [address] [phone] Bedside Glucose 105 mg/dL Normal 83-110 CBC With Differential 07/19/2020 [facility] [address] [place] [address] [phone] White Blood Count 10.5 10 High 4.0-10.0 [...] 36.0-66.0 Lymph % 15.8 % Low 24.0-44.0 [place] % 5.8 % High 0.0-5.0 Eos % 3.0 % Normal 0.0-3.0 Baso % 0.5 % Normal 0.0-1.0 Immature Granulocyte % 0.4 % Normal 0-3.0 Nucleated Red Blood Cell % 0.0 % Normal 0-0 Neutrophils # 7.8 10 Normal 1.5-8.5 Lymph # 1.7 10 Normal 1.5-5.0 [place] # 0.6 10 Normal 0.0-0.8 Eos # 0.3 10 Normal 0.0-0.5 Baso # 0.1 10 Normal 0.0-0.2 Prothrombin Time/Inr 07/19/2020 [facility] [address] [place] [address] [phone] Prothrombin Time 16.7 seconds High 12.5-14.3 Inr 1.32 Normal 1 Laboratory test finding 07/19/2020 [facility] [address] [place] [address] [phone] Partial Thromboplastin Time 43.2 seconds High 24 .2-38.5 Cardiac Marker Panel 07/19/2020 [facility] [address] [place] [address] [phone] CPK Creatine Phosphokinase 38 U/L Normal 26-19 2 CK-MB Value Mass < 1.0 NG/ML Normal <3.6 MB/CK Relative Index 2.63 Normal < Or =4 2 Troponin I < 0.02 NG/ML Normal < 0.10 3 Basic Metabolic Profile 07/19/2020 [place] [id number] [phone] Glucose, Fasting 131 mg/dL High 70-100 Blood [...] mg/dL Normal 8.8-10.2 Laboratory test finding 07/19/2020 [place] [address] [phone] Magnesium Level 1.6 mg/dL Low 1.8-2.4 Thyroid Stimulating Hormone 1.440 uIU/ML Normal 0.358-3.740 Free T4 1.05 ng/dL Normal 0.76-1.46 Basic Metabolic Panel 06/22/2020 [facility] Screed Person: Dr Murali Castorena [place], [place] [id number] [phone] Glucose 131 mg/dL High 74 - 99 [...] Low >60 6 Laboratory test finding 06/08/2020 [facility] Screed Person: [place] [address] [phone] B-Type Natriuretic Peptide 189.0 pg/mL High 0.0 - 100.0 Basic Metabolic Panel 06/08/2020 [facility] Screed Person: [place] [address] [phone] Glucose 110 mg/dL High 74 - 99 [...] 60 mL/min >60 8 Respiratory Panel 05/27/2020 [facility] [address] [place], [place] [id number] [phone] Respiratory Panel This respiratory <SEE NOTE> 9 Laboratory test finding 05/27/[address] [id number] [phone] NT-Pro BNP 2410 pg/mL High <450 Basic Metabolic Profile 05/27/2020 [facility] [address] [place] [phone] Glucose, Fasting 118 mg/dL High 70-100 Blood [...] 9.0 mg/dL Normal 8.8-10.2 Liver Profile 05/27/2020 [facility] [address] [place], [place] [id number] [phone] Ast/Sgot 10 U/L Normal 7-37 Alt/SGPT 11 U/L Low 12-78 Alkaline Phosphatase 79 U/L Normal 45-117 Bilirubin,Total 1.1 mg/dL High 0.2-1.0 Bilirubin,Direct 0.4 mg/dL High 0.0-0.2 Total Protein 6.5 GM/DL Normal 6.4-8.2 Albumin 3.3 GM/DL Normal 3.2-5.2 Albumin/Globulin Ratio 1.0 Low 1.2-2.2 Cardiac Marker Panel 05/27/2020 [facility] enter [address] [place] [id number] [phone] CPK Creatine Phosphokinase 32 U/L Normal 26-19 2 CK-MB Value Mass 1.1 NG/ML Normal <3.6 MB/CK Relative Index 3.44 Normal < Or =4 11 Troponin I < 0.02 NG/ML Normal < 0.10 12 Prothrombin Time/Inr 05/27/2020 [facility] enter [address] [place] [address] [phone] Prothrombin Time 16.2 seconds High 11.8-14.0 Inr 1.28 Normal 13 CBC With Differential 05/27/[address] [address] [phone] White Blood Count 11.7 10 High 4.0-10.0 [...] 36.0-66.0 Lymph % 9.5 % Low 24.0-44.0 [place] % 4.9 % Normal 0.0-5.0 Eos % 1.3 % Normal 0.0-3.0 Baso % 0.4 % Normal 0.0-1.0 Immature Granulocyte % 0.5 % Normal 0-3.0 Nucleated Red Blood Cell % 0.0 % Normal 0-0 Neutrophils # 9.8 10 High 1.5-8.5 Lymph # 1.1 10 Low 1.5-5.0 [place] # 0.6 10 Normal 0.0-0.8 Eos # 0.2 10 Normal 0.0-0.5 Baso # 0.1 10 Normal 0.0-0.2 Arterial Blood Gas 05/27/2020 [facility] n[facility] [address] [place] [address] [phone] ABG pH (Arterial) 7.402 units Normal 7.350-7.450 ABG Partial Pressure Co2 56.9 mmHg High 35.0-45.0 ABG Partial Pressure O2 131.8 mmHg High 75.0-100.0 ABG Total Co2 36.4 mEq/L High 23.0-31.0 ABG Hco3 34.6 mEq/L High 22.0-26.0 ABG Base Excess 7.9 High -2.0-2.0 ABG Standard Hco3 31.8 mEq/L High 22.0-26.0 ABG O2 Saturation 98.9 % Normal 95.0-99.0 CBC With Differential 02/23/2020 [place] [address] [place], [place] [id number] [phone] White Blood Count 13.0 10 High 4.0-10.0 [...] 36.0-66.0 Lymph % 9.1 % Low 24.0-44.0 [place] % 6.6 % High 0.0-5.0 Eos % 1.3 % Normal 0.0-3.0 Baso % 0.4 % Normal 0.0-1.0 Immature Granulocyte % 0.4 % Normal 0-3.0 Nucleated Red Blood Cell % 0.0 % Normal 0-0 Neutrophils # 10.7 10 High 1.5-8.5 Lymph # 1.2 10 Low 1.5-5.0 [place] # 0.9 10 High 0.0-0.8 Eos # 0.2 10 Normal 0.0-0.5 Baso # 0.1 10 Normal 0.0-0.2 Laboratory test finding 02/23/2020 [place] [id number] [phone] Erythrocyte Sedimentation Rate 25 mm/hr Normal 0 -30 Basic Metabolic Profile 02/23/2020 [place] [id number] [phone] Glucose, Fasting 103 mg/dL High 70-100 Blood [...] mg/dL Low 8.8-10.2 Laboratory test finding 02/23/[address] [address] [phone] Uric Acid 7.8 mg/dL High 2.6-6.0 C [...] 3 Troponin I Reference Interva l for [employer] LOCI: 99th Percentile= 0.00-0.045 ng/ml Risk Stratification: [...] Little GFR Left ESRD GFR <15 on TECHNICAL INSTRUCTOR COURSE DEVELOPER 5 100-125 mg/dL PRE-DIABET ES/FASTING >126 mg/dL DIABETES/FASTING 6 CHRONIC KIDNEY DISEASE STAGI NG PER NKF STAGE I & II GFR >= 60 NORMAL TO MILDLY DECREASED STAGE III GFR 30-59 MODERATELY DECREASED STAGE IV GFR 15-29 SEVERELY DECREASED STAGE V GFR <15 VERY LITTLE GFR LEFT ESRD GFR <15 ON TECHNICAL INSTRUCTOR COURSE DEVELOPER 7 100-125 mg/dL PRE-DIABET ES/FASTING >126 mg/dL DIABETES/FASTING 8 CHRONIC KIDNEY DISEASE STAGI NG PER NKF STAGE I & II GFR >= 60 NORMAL TO MILDLY DECREASED STAGE III GFR 30-59 MODERATELY DECREASED STAGE IV GFR 15-29 SEVERELY DECREASED STAGE V GFR <15 VERY LITTLE GFR LEFT ESRD GFR <15 ON TECHNICAL INSTRUCTOR COURSE DEVELOPER 9 This respiratory PCR panel d etects [...] Little GFR Left ESRD GFR <15 on TECHNICAL INSTRUCTOR COURSE DEVELOPER 11 DIAGNOSIS CRITERIA MMB ng/ml Relative Index (RI) NON-AMI < or = 5 N/A [place] ZONE > 5 < or = 4 AMI > 5 > 4 12 Troponin I Reference Interva l for [employer] [place] LOCI: 99th Percentile= 0.00-0.045 ng/ml Risk Stratification: [...] Little GFR Left ESRD GFR <15 on TECHNICAL INSTRUCTOR COURSE DEVELOPER Procedures Date Code Description Status 06/06/2018 739597413 Bone Mineral Density Test [facility] 06/06/2018 [id number] Mammogram Completed 03/09/2017 [id number] Mammogram Completed 07/11/2016 [id number] Mammogram Completed 03/10/2015 [id number] Mammogram Completed 02/19/2015 [id number] Mammogram Completed 08/28/2013 [id number] Bone Mineral Density Test [facility] 08/28/2013 [id number] Mammogram Completed Medical Devices Description No Information Available Encounters Type Date Location Provider Dx Diagnosis Office Visit 06/22/2020 3:20p [facility], [place] I50.32 Chronic diastolic (congestiv e) heart failure J44.9 Chronic obstructive pulmonar y disease, unspecified I10 Essential (primary) hyperten lisa Office Visit 06/08/2020 10:40a [facility], [place] J44.9 Chronic obstructive pulmonar y disease, unspecified I50.32 Chronic diastolic (congestiv e) heart failure I10 Essential (primary) hyperten lisa F17.210 Nicotine dependence, cigaret monet, uncomplicated I48.0 Paroxysmal atrial fibrillati on M15.9 Polyosteoarthritis, unspecif ied Office Visit 02/24/2020 2:40p [facility] TEJAS Rodrigez JR M10.042 Idiopathic [...] 1:00 pm - TEJAS Casillas JR at [facility] 06/22/2020 - TEJAS Casillas JR* [...]
--- OUTSIDE RECORDS SUMMARY | 2020-10-18 00:41 | CCD ---
Author Author [facility] Organization [facility] Address Unknown Phone Unavailable Care Team Providers Care Payroll Analyst Name Role Phone Delroy, M Della RPA Unavailable Unavailable Delroy, M Della RPA Unavailable Unavailable Delroy, M Della RPA Unavailable Unavailable Delroy, M Della RPA Unavailable Unavailable Delroy, M Della RPA Unavailable Unavailable Delroy, M Della RPA Unavailable Unavailable Delroy, M Della RPA Unavailable Unavailable Delroy, M Della RPA Unavailable Unavailable Delroy, M Della RPA Unavailable Unavailable Delroy, M Della RPA Unavailable Unavailable Delroy, M Della RPA Unavailable Unavailable Delroy, M Della RPA Unavailable Unavailable Delroy, M Della RPA Unavailable Unavailable Delroy, M Della RPA Unavailable Unavailable Delroy, M Della RPA Unavailable Unavailable Delroy, M Della RPA Unavailable Unavailable Delroy, M Della RPA Unavailable Unavailable Delroy, M Della RPA Unavailable Unavailable Delroy, M Della RPA Unavailable Unavailable Delroy, M Della RPA Unavailable Unavailable Delroy, M Della RPA Unavailable Unavailable Delroy, M Della RPA Unavailable Unavailable Delroy, M Della RPA Unavailable Unavailable Delroy, M Della RPA Unavailable Unavailable Delroy, M Della RPA Unavailable Unavailable Delroy, M Della RPA Unavailable Unavailable Delroy, M Della RPA Unavailable Unavailable Delroy, M Della RPA Unavailable Unavailable Delroy, M Della RPA Unavailable Unavailable Delroy, M Della RPA Unavailable Unavailable Delroy, M Della RPA Unavailable Unavailable Delroy, M Della RPA Unavailable Unavailable Delroy, M Della RPA Unavailable Unavailable Delroy, M Della RPA Unavailable Unavailable Delroy, M Della RPA Unavailable Unavailable Delroy, M Della RPA Unavailable Unavailable Delroy, M Della RPA Unavailable Unavailable Delroy, M Della RPA Unavailable Unavailable Delroy, M Della RPA Unavailable Unavailable Delroy, M Della RPA Unavailable Unavailable Delroy, M Della RPA Unavailable Unavailable Rudi Beltran MD Unavailable Unavailable Rudi Beltran MD Unavailable Unavailable RubyRudi MD Unavailable Unavailable RubyRudi montana MD Unavailable Unavailable RubyRudi MD Unavailable Unavailable RubyRudi MD Unavailable Unavailable RubyRudi MD Unavailable Unavailable RubyRudi MD Unavailable Unavailable RubyRudi MD Unavailable Unavailable RubyRudi MD Unavailable Unavailable RubyRudi MD Unavailable Unavailable RubyRudi sanchez MD Unavailable Unavailable RubyRudi MD Unavailable Unavailable RubyRudi MD Unavailable Unavailable RubyRudi MD Unavailable Unavailable RubyRudi MD Unavailable Unavailable RubyRudi MD Unavailable Unavailable RubyRudi MD Unavailable Unavailable RubyRudi MD Unavailable Unavailable RubyRudi montana MD Unavailable Unavailable RubyRudi MD Unavailable Unavailable Rudi Beltran MD Unavailable Unavailable Rudi Beltran MD Unavailable Unavailable Rudi Beltran MD Unavailable Unavailable RubyRudi montana MD Unavailable Unavailable Rudi Beltran MD Unavailable Unavailable Rudi Beltran MD Unavailable Unavailable Rudi Beltran MD Unavailable Unavailable Rudi Beltran MD Unavailable Unavailable Rudi Beltran MD Unavailable Unavailable Rudi Beltran MD Unavailable Unavailable Rudi Beltran MD Unavailable Unavailable Rudi Beltran MD Unavailable Unavailable Rudi Beltran MD Unavailable Unavailable Rudi Beltran MD Unavailable Unavailable Rudi Beltran MD Unavailable Unavailable Rudi Beltran MD Unavailable Unavailable Rudi Beltran MD Unavailable Unavailable Rudi Beltran MD Unavailable Unavailable Rudi Beltran MD Unavailable Unavailable Rudi Beltran MD Unavailable Unavailable Rudi Beltran MD Unavailable Unavailable Rudi Beltran MD Unavailable Unavailable Rudi Beltran MD Unavailable Unavailable Rudi Beltran MD Unavailable Unavailable Rudi Beltran MD Unavailable Unavailable Rudi Beltran MD Unavailable Unavailable Rudi Beltran MD Unavailable Unavailable Rudi Beltran MD Unavailable Unavailable Rudi Beltran MD Unavailable Unavailable Rudi Beltran MD Unavailable Unavailable Rudi Beltran MD Unavailable Unavailable Ruby M Shanta MD Unavailable Unavailable Rudi Beltran MD Unavailable Unavailable Rudi Beltran MD Unavailable Unavailable Rudi Beltran MD Unavailable Unavailable Rudi Beltran MD Unavailable Unavailable Rudi Beltran MD Unavailable Unavailable Rudi Beltran MD Unavailable Unavailable Rudi Beltran MD Unavailable Unavailable Rudi Beltran MD Unavailable Unavailable Ruid Beltran MD Unavailable Unavailable Rudi Beltran MD Unavailable Unavailable Rudi Beltran MD Unavailable Unavailable Rudi Beltran MD Unavailable Unavailable Rudi Beltran MD Unavailable Unavailable Rudi Beltran MD Unavailable Unavailable Rudi Beltran MD Unavailable Unavailable Rudi Beltran MD Unavailable Unavailable Rudi Beltran MD Unavailable Unavailable Rudi Beltran MD Unavailable Unavailable Rudi Beltran MD Unavailable Unavailable Rudi Beltran MD Unavailable Unavailable Rudi Beltran MD Unavailable Unavailable Rudi Beltran MD Unavailable Unavailable Rudi Beltran MD Unavailable Unavailable Rudi Beltran MD Unavailable Unavailable Rudi Beltran MD Unavailable Unavailable PICKERAL JR, J DELFIN PA-C Unavailable Unavailable PICKERAL JR, J DELFIN PA-C Unavailable Unavailable PICKERAL JR, J DELFIN PA-C Unavailable Unavailable PICKERAL JR, J DELFIN PA-C Unavailable Unavailable PICKERAL JR, J DELFIN PA-C Unavailable Unavailable PICKERAL JR, J DELFIN PA-C Unavailable Unavailable PICKERAL JR, J EDLFIN PA-C Unavailable Unavailable PICKERAL JR, J DELFIN PA-C Unavailable Unavailable PICKERAL JR, J DELFIN PA-C Unavailable Unavailable PICKERAL JR, J DELFIN PA-C Unavailable Unavailable PICKERAL JR, J DELFIN PA-C Unavailable Unavailable PICKERAL JR, J DELFIN PA-C Unavailable Unavailable PICKERAL JR, J DELFIN PA-C Unavailable Unavailable PICKERAL JR, J DELFIN PA-C Unavailable Unavailable PICKERAL JR, J DELFIN PA-C Unavailable Unavailable PICKERAL JR, J DELFIN PA-C Unavailable Unavailable PICKERAL JR, J DELFIN PA-C Unavailable Unavailable PICKERAL JR, J DELFIN PA-C Unavailable Unavailable PICKERAL JR, J DELFIN PA-C Unavailable Unavailable PICKERAL JR, J DELFIN PA-C Unavailable Unavailable Re-disclosure Warning The records that you are about to access may contain information from federally-assisted alcohol or drug abuse programs. If such information is present, then the following federally mandated warning applies: This information has been disclosed to you from records protected by federal confidentiality rules (42 CFR part 2). The federal rules prohibit you from making any further disclosure of this information unless further disclosure is expressly permitted by the written consent of the person to whom it pertains or as otherwise permitted by 42 CFR part 2. A general authorization for the release of medical or other information is NOT sufficient for this purpose. The Federal rules restrict any use of the information to criminally investigate or prosecute any alcohol or drug abuse patient.The records that you are about to access may contain highly sensitive health information, the redisclosure of which is protected by Article 27-F of the [facility] Public Health law. If you continue you may have access to information: Regarding HIV / AIDS; Provided by facilities licensed or operated by the [facility] Office of Mental Health; or Provided by the [facility] Office for People With Developmental Disabilities. If such information is present, then the following [facility] mandated warning applies: This information has been disclosed to you from confidential records which are protected by state law. State law prohibits you from making any further disclosure of this information without the specific written consent of the person to whom it pertains, or as otherwise permitted by law. Any unauthorized further disclosure in violation of state law may result in a fine or mcc sentence or both. A general authorization for the release of medical or other information is NOT sufficient authorization for further disc losure. Family History Family Member Name Family Member Gender Family Member Status Date o f Status Description Data Source(s) Unknown Unknown Problem [facility] ([facility] [employer]) Unknown Female Problem [facility] ([facility]) Unknown Male Problem [facility] ([facility]) Unknown Female Problem [facility] ([facility]) Encounters Encounter Providers Location Date Indications Data Source(s ) Outpatient Attender: DELFIN Cary 1 03:20:00 PM EDT [facility] ([facility] ) Outpatient Attender: DELFIN Cary 0 06/08/2020 10:40:00 AM EDT [facility] ([facility] ) Outpatient Attender: Della Potts [facility]PA [facility]ULT [facility] 02/25/2020 07:37:[address] [facility] Outpatient Attender: DELFIN Cary 0 02/24/2020 02:40:00 PM EDT [facility] ([facility] ) Outpatient Attender: Shanta Cary 11:45:00 AM EDT [facility] ([facility] ) Medications Medication Brand Name Start Date Product Form Dose Route Admi nistrative Instructions Pharmacy Instructions Status Indications Reaction Description Data Source(s) 25 mg 10/12/2020 12:00:00 AM EST tablet 30 TAKE ONE TABLET BY MOUTH TWICE A DAY TAKE ONE TABLET BY MOUTH TWICE A DAY SOLD: 10/12/2020 [facility] 10 mEq 10/05/2020 12:00:00 AM EST tablet,ER particles/cry stals 30 TAKE ONE TABLET BY MOUTH EVERY MORNING TAKE ONE TABLET BY MOUTH EVERY MORNING SOLD: 10/12/2020 [facility] 5 mg 10/02/2020 12:00:00 AM EST tablet 90 TAKE ONE TABLET BY MOUTH THREE TIMES A DAY NEEDED MAXIMUM DAILY DOSE = 3 TABLETS TAKE ONE TABLET BY MOUTH THREE TIMES A DAY NEEDED MAXIMUM DAILY DOSE = 3 TABLETS SOLD: 10/05/2020 [facility] 7.5-325 mg 10/01/2020 12:00:00 AM EST tablet 90 TAKE ONE TABLET BY MOUTH THREE TIMES A DAY NEEDED FOR PAIN MAXIMUM DAILY DOSE = THREE TABLETS TAKE ONE TABLET BY MOUTH THREE TIMES A DAY NEEDED FOR PAIN MAXIMUM DAILY DOSE = THREE TABLETS SOLD: 10/05/2020 [facility] 5 mg 08/27/2020 12:00:00 AM EST tablet 90 TAKE ONE TABLET BY MOUTH THREE TIMES A DAY NEEDED FOR ANXIETY MAXIMUM DAILY DOSE = THREE TABLETS TAKE ONE TABLET BY MOUTH THREE TIMES A DAY NEEDED FOR ANXIETY MAXIMUM DAILY DOSE = THREE TABLETS SOLD: 09/01/2020 [facility] 7.5-325 mg 08/27/2020 12:00:00 AM EST tablet 90 TAKE ONE TABLET BY MOUTH THREE TIMES A DAY NEEDED FOR PAIN MAXIMUM DAILY DOSE = 3 TAKE ONE TABLET BY MOUTH THREE TIMES A DAY NEEDED FOR PAIN MAXIMUM DAILY DOSE = 3 SOLD: 08/27/2020 [facility] 20 mEq 07/31/2020 12:00:00 AM EST packet 60 TAKE TWO PACKETS BY MOUTH EVERY DAY TAKE TWO PACKETS BY MOUTH EVERY DAY SOLD: 07/31/2020 [facility] 500 mg 07/31/2020 12:00:00 AM EST capsule 30 TAKE ONE CAPSULE BY MOUTH THREE TIMES A DAY FOR 10 DAYS TAKE ONE CAPSULE BY MOUTH THREE TIMES A DAY FOR 10 DAY S SOLD: 07/31/2020 [facility] 5 mg 07/23/2020 12:00:00 AM EST tablet 90 TAKE ONE TABLET BY MOUTH THREE TIMES A DAY NEEDED FOR ANXIETY MAXIMUM DAILY DOSE = 3 TAKE ONE TABLET BY MOUTH THREE TIMES A DAY NEEDED FOR ANXIETY MAXIMUM DAILY DOSE = 3 SOLD: 07/27/2020 [facility] 7.5-325 mg 07/23/2020 12:00:00 AM EST tablet 90 TAKE ONE TABLET BY MOUTH THREE TIMES A DAY NEEDED FOR PAIN MAXIMUM DAILY DOSE = 3 TAKE ONE TABLET BY MOUTH THREE TIMES A DAY NEEDED FOR PAIN MAXIMUM DAILY DOSE = 3 SOLD: 07/27/2020 [facility] Meclizine Hydrochloride 25 MG Oral Tablet MECLIZINE HCL 07/21/2020 12:00:00 AM EST tablet 30 TAKE ONE TABLET BY MOUTH TRE RY 8 HOURS TAKE ONE TABLET BY MOUTH EVERY 8 HOURS SOLD: 07/27/2020 [facility] 10 mEq 07/18/2020 12:00:00 AM EDT tablet,ER particles/cry stals 30 TAKE ONE TABLET BY MOUTH EVERY MORNING TAKE ONE TABLET BY MOUTH EVERY MORNING SOLD: 07/27/2020 [facility] Potassium Chloride 10 MEQ Extended Release Oral Tablet Potassium Chloride [facility] 07/17/2020 12:00:00 AM EDT ORAL active [facility] ([facility]) Potassium Chloride 20 MEQ Extended Release Oral Tablet Potassium Chloride [facility] 06/23/2020 12:00:00 AM EDT ORAL active [facility] ([facility]) 20 mg 06/19/2020 12:00:00 AM EDT tablet 30 TAKE ONE TABLET BY MOUTH EVERY DAY TAKE ONE TABLET BY MOUTH EVERY DAY SOLD: 06/27/2020 [facility] 5 mg 06/15/2020 12:00:00 AM EDT tablet 90 TAKE ONE TABLET BY MOUTH THREE TIMES A DAY NEEDED FOR ANXIETY MAXIMUM DAILY DOSE = 3 TABLETS TAKE ONE TABLET BY MOUTH THREE TIMES A DAY NEEDED FOR ANXIETY MAXIMUM DAILY DOSE = 3 TABLETS SOLD: 06/18/2020 [facility] 7.5-325 mg 06/15/2020 12:00:00 AM EDT tablet 90 TAKE ONE TABLET BY MOUTH THREE TIMES A DAY NEEDED FOR PAIN MAXIMUM DAILY DOSE = 3 TAKE ONE TABLET BY MOUTH THREE TIMES A DAY NEEDED FOR PAIN MAXIMUM DAILY DOSE = 3 SOLD: 06/18/2020 [facility] Furosemide 20 MG Oral Tablet Furosemide 06/12/2020 12:00:00 AM EDT ORAL completed [facility] ([facility]) tiotropium 0.018 MG/ACTUAT Inhalant Powder [Spiriva] Spiriva Handihaler 06/08/2020 12:00:00 AM EDT active [facility] ([facility]) Furosemide 20 MG Oral Tablet Furosemide 06/08/2020 12:00:00 AM EDT ORAL active [facility] ([facility]) 20 mg 06/08/2020 12:00:00 AM EDT tablet 15 TAKE 1/2 TABLET BY MOUTH ONCE DAILY TAKE 1/2 TABLET BY MOUTH ONCE DAILY SOLD: 06/08/2020 [facility] 20 mg 05/29/2020 12:00:00 AM EDT tablet 3 TAKE ONE TABLET BY MOUTH EVERY DAY TAKE ONE TABLET BY MOUTH EVERY DAY SOLD: 05/29/2020 [facility] 18 mcg 05/29/2020 12:00:00 AM EDT capsule, w/inhalation d evice 30 INHALE THE CONTENTS OF ONE CAPSULE VIA HANDIHALER BY MOUTH DAILY INHALE THE CONTENTS OF ONE CAPSULE VIA HANDIHALER BY MOUTH DAILY SOLD: 05/29/2020 [facility] 5 mg 05/12/2020 12:00:00 AM EDT tablet 90 TAKE ONE TABLET BY MOUTH THREE TIMES A DAY NEEDED FOR ANXIETY MAXIMUM DAILY DOSE = 3 TABLETS TAKE ONE TABLET BY MOUTH THREE TIMES A DAY NEEDED FOR ANXIETY MAXIMUM DAILY DOSE = 3 TABLETS SOLD: 05/18/2020 [facility] 7.5-325 mg 05/12/2020 12:00:00 AM EDT tablet 90 TAKE ONE TABLET BY MOUTH THREE TIMES A DAY NEEDED FOR PAIN MAXIMUM DAILY DOSE = THREE TABLETS TAKE ONE TABLET BY MOUTH THREE TIMES A DAY NEEDED FOR PAIN MAXIMUM DAILY DOSE = THREE TABLETS SOLD: 05/18/2020 [facility] 5 mg 03/18/2020 12:00:00 AM EDT tablet 90 TAKE ONE TABLET BY MOUTH THREE TIMES A DAY NEEDED FOR ANXIETY MAXIMUM DAILY DOSE = THREE TABLETS TAKE ONE TABLET BY MOUTH THREE TIMES A DAY NEEDED FOR ANXIETY MAXIMUM DAILY DOSE = THREE TABLETS SOLD: 03/20/2020 [facility] 7.5-325 mg 03/17/2020 12:00:00 AM EDT tablet 90 TAKE ONE TABLET BY MOUTH THREE TIMES A DAY NEEDED FOR PAIN MAXIMUM DAILY DOSE = THREE TABLETS TAKE ONE TABLET BY MOUTH THREE TIMES A DAY NEEDED FOR PAIN MAXIMUM DAILY DOSE = THREE TABLETS SOLD: 03/20/2020 [facility] 20 mg 02/25/2020 12:00:00 AM EDT tablet 4 TAKE ONE TABLET BY MOUTH EVERY DAY FOR 3 DAYS THEN 1/2 TABLET ONCE DAILY FOR 2 DAYS TAKE ONE TABLET BY MOUTH EVERY DAY FOR 3 DAYS THEN 1/2 TABLET ONCE DAILY FOR 2 DAYS SOLD: 02/25/2020 [facility] Prednisone 20 MG Oral Tablet Prednisone 02/24/2020 12:00:00 AM EDT ORAL active [facility] ([facility]) 20 mg 02/24/2020 12:00:00 AM EDT tablet 8 TAKE TWO TABLETS BY MOUTH EVERY DAY TAKE TWO TABLETS BY MOUTH EVERY DAY SOLD: 02/24/2020 [facility] Amoxicillin 500 MG Oral Capsule Amoxicillin 02/21/2020 12:00:00 AM EDT active [facility] ([facility]) 500 mg 02/21/2020 12:00:00 AM EDT capsule 30 TAKE ONE CAPSULE BY MOUTH THREE TIMES A DAY FOR 10 DAYS TAKE ONE CAPSULE BY MOUTH THREE TIMES A DAY FOR 10 DAYS SOLD: 02/21/2020 [facility] 5 mg 02/18/2020 12:00:00 AM EDT tablet 90 TAKE ONE TABLET BY MOUTH THREE TIMES A DAY NEEDED FOR ANXIETY MAXIMUM DAILY DOSE = THREE TABLETS TAKE ONE TABLET BY MOUTH THREE TIMES A DAY NEEDED FOR ANXIETY MAXIMUM DAILY DOSE = THREE TABLETS SOLD: 02/21/2020 [facility] 7.5-325 mg 02/17/2020 12:00:00 AM EDT tablet 90 TAKE ONE TABLET BY MOUTH THREE TIMES A DAY NEEDED FOR PAIN MAXIMUM DAILY DOSE = THREE TABLETS TAKE ONE TABLET BY MOUTH THREE TIMES A DAY NEEDED FOR PAIN MAXIMUM DAILY DOSE = THREE TABLETS SOLD: 02/21/2020 [facility] 7.5-325 mg 01/15/2020 12:00:00 AM EDT tablet 90 TAKE ONE TABLET BY MOUTH THREE TIMES A DAY NEEDED FOR PAIN MAXIMUM DAILY DOSE = 3 TABLETS TAKE ONE TABLET BY MOUTH THREE TIMES A DAY NEEDED FOR PAIN MAXIMUM DAILY DOSE = 3 TABLETS SOLD: 01/19/2020 [facility] 5 mg 01/15/2020 12:00:00 AM EDT tablet 90 TAKE ONE TABLET BY MOUTH THREE TIMES A DAY NEEDED FOR ANXIETY MAXIMUM DAILY DOSE = 3 TABLETS TAKE ONE TABLET BY MOUTH THREE TIMES A DAY NEEDED FOR ANXIETY MAXIMUM DAILY DOSE = 3 TABLETS SOLD: 01/19/2020 [facility] 5 mg 12/12/2019 12:00:00 AM EDT tablet 90 TAKE ONE TABLET BY MOUTH THREE TIMES A DAY NEEDED FOR ANXIETY MAXIMUM DAILY DOSE = THREE TABLETS TAKE ONE TABLET BY MOUTH THREE TIMES A DAY NEEDED FOR ANXIETY MAXIMUM DAILY DOSE = THREE TABLETS SOLD: 12/16/2019 [facility] 7.5-325 mg 12/12/2019 12:00:00 AM EDT tablet 90 TAKE ONE TABLET BY MOUTH THREE TIMES A DAY NEEDED FOR PAIN MAXIMUM DAILY DOSE = 3 TABLETS TAKE ONE TABLET BY MOUTH THREE TIMES A DAY NEEDED FOR PAIN MAXIMUM DAILY DOSE = 3 TABLETS SOLD: 12/16/2019 [facility] 5 mg 10/29/2019 12:00:00 AM EST tablet 90 TAKE ONE TABLET BY MOUTH THREE TIMES A DAY NEEDED FOR ANXIETY MAXIMUM DAILY DOSE = 3 TABLETS TAKE ONE TABLET BY MOUTH THREE TIMES A DAY NEEDED FOR ANXIETY MAXIMUM DAILY DOSE = 3 TABLETS SOLD: 11/04/2019 [facility] 7.5-325 mg 10/29/2019 12:00:00 AM EST tablet 90 TAKE ONE TABLET BY MOUTH THREE TIMES A DAY NEEDED FOR PAIN MAXIMUM DAILY DOSE = 3 TABLETS TAKE ONE TABLET BY MOUTH THREE TIMES A DAY NEEDED FOR PAIN MAXIMUM DAILY DOSE = 3 TABLETS SOLD: 11/04/2019 [facility] 5 mg 09/29/2019 12:00:00 AM EST tablet 90 TAKE ONE TABLET BY MOUTH THREE TIMES A DAY NEEDED FOR ANXIETY MAXIMUM DAILY DOSE = THREE TABLETS TAKE ONE TABLET BY MOUTH THREE TIMES A DAY NEEDED FOR ANXIETY MAXIMUM DAILY DOSE = THREE TABLETS SOLD: 09/30/2019 [facility] 7.5-325 mg 09/27/2019 12:00:00 AM EST tablet 90 TAKE ONE TABLET BY MOUTH THREE TIMES A DAY NEEDED FOR PAIN MAXIMUM DAILY DOSE = THREE TABLETS TAKE ONE TABLET BY MOUTH THREE TIMES A DAY NEEDED FOR PAIN MAXIMUM DAILY DOSE = THREE TABLETS SOLD: 09/30/2019 [facility] 5 mg 08/23/2019 12:00:00 AM EST tablet 90 TAKE ONE TABLET BY MOUTH THREE TIMES A DAY NEEDED FOR ANXIETY MAXIMUM DAILY DOSE = 3 TAKE ONE TABLET BY MOUTH THREE TIMES A DAY NEEDED FOR ANXIETY MAXIMUM DAILY DOSE = 3 SOLD: 08/25/2019 [facility] 7.5-325 mg 08/22/2019 12:00:00 AM EST tablet 76 TAKE ONE TABLET BY MOUTH THREE TIMES A DAY NEEDED FOR PAIN MAXIMUM DAILY DOSE = 3 TAKE ONE TABLET BY MOUTH THREE TIMES A DAY NEEDED FOR PAIN MAXIMUM DAILY DOSE = 3 SOLD: 09/01/2019 [facility] Insurance Providers Payer name Policy type / Coverage type Policy ID Covered republican ID Covered republican's relationship to zhang Policy Zhang Plan Information UMR [facility] [id number] SP [id number] MEDICARE [id number] SP [id number] UMR O [id number] S [id number] MEDICARE C [id number] S [id number] [employer] S [id number] S [id number] Medicare P [id number] S [id number] A [place] (Old) Medigap Part B [id number] Self [id number] Medicare Natl Govt Servic Medicare Primary [id number] Self [id number] Umr (New [place]) Medigap Part B [id number] Self [id number] [place] [id number] Self [id number] Umr Medigap Part B [id number] Self [id number] UMR [facility] [id number] SP [id number] [place] Primary [id number] Self [id number] [place] (Old) Medigap Part B [id number] Self [id number] Medicare [place]l Govt Servic Medicare Primary [id number] Self [id number] [place] (Old) Medigap Part B [id number] Self [id number] Medicare [place]l Govt Servic Medicare Primary [id number] Self [id number] [place] (Old) Medigap Part B [id number] Self [id number] Medicare Natl Govt Servic Medicare Primary [id number] Self [id number] [employer] [id number] SP [id number] MEDICARE [id number] SP [id number] A [place] (Old) Medigap Part B [id number] Self [id number] Medicare Natl Govt Servic Medicare Primary [id number] Self [id number] [place] Ppo Medigap Part B [id number] Self [id number] Medicare Natl Govt Servic Medicare Primary [id number] Self [id number] [place] P[place] Medigap Part B [id number] Self [id number] Medicare Natl Govt Servic Medicare Primary [id number] Self [id number] [place] P[employer] Medigap Part B [id number] Self [id number] Medicare Natl Govt Servic Medicare Primary [id number] Self [id number] [place] [employer] Medigap Part B [id number] Self [id number] Medicare [place] Govt Servic Medicare Primary [id number] Self [id number] [place] [employer] Medigap Part B [id number] Self [id number] Medicare [place] Govt Servic Medicare Primary [id number] Self [id number] [place] [employer] Medigap Part B [id number] Self [id number] Medicare [place] Govt Servic Medicare Primary [id number] Self [id number] [employer] PPO O [id number] S [id number] MEDICARE C [id number] S [id number] A [facility] C [id number] S [id number] [place] P[place] Medigap Part B [id number] Self [id number] Medicare Natl Govt Servic Medicare Primary [id number] Self [id number] [place] (pr) Medigap Part B Self [place] Primary Self [place] P[place] Medigap Part B 335 Self 335 Medicare Natl Govt Servic Medicare Primary Self [place] Medigap Part B 335 Self 335 [place] Medicare Primary Self POM[employer] [id number] SP [id number] P[employer]CO [id number] SP [id number] [employer] PPO S [id number] S [id number] [employer] [id number] SP [id number] A [id number] Results ID Date Data Source [id number] 07/19/2020 10:17:00 AM EST [facility] ([facility]) Name Value Range Interpretation Code Description Data Meseret rce(s) Supporting Document(s) Bedside Glucose 105 mg/dL 83-110 [facility] ([facility]) ID Date Data Source [id number] 07/19/2020 09:49:00 AM EST [facility] ([facility]) Name Value Range Interpretation Code Description Data Meseret rce(s) Supporting Document(s) Magnesium [Moles/volume] in Serum or Plasma 1.6 mg/dL 1.8-2.4 [facility] ([facility]) Thyrotropin [Units/volume] in Serum or Plasma by Detec tion limit <= 0.05 mIU/L 1.440 uIU/ML 0.358-3.740 [facility] ([facility] ) Thyroxine (T4) free [Mass/volume] in Serum or Plasma 1.05 ng/dL 0.76- 1.46 [facility] ([facility]) ID Date Data Source [id number] 07/19/2020 09:49:00 AM EST [facility] ([facility]) Name Value Range Interpretation Code Description Data Meseret rce(s) Supporting Document(s) Blood Urea Nitrogen 21 mg/dL 7-18 [facility] ([facility]) Glucose, Fasting 131 mg/dL 70-100 [facility] ([facility]) Glomerular Filtration Rate 55.9 [facility] ([facility]) <content>Units are mL/min/1.73 m2</content>
<content></content>
<content>Chronic Kidney Disease Staging per NKF:</content>
<content></content>
<content>Stage I & II GFR >=60 Normal to Mildly Decreased</content>
<content>Stage III GFR 30- 59 Moderately Decreased</content>
<content>Stage IV GFR 15-29 Severely Decreased</content>
<content>Stage V GFR <15 Very Little GFR Left</content>
<content>ESRD GFR <15 on STITCHER FEEDER</content>
<content></content> Sodium Level 141 meq/L 136-[address] [facility] ([facility]) Creatinine For GFR 1.02 mg/dL 0.55-1.[address] [facility] ([facility]) Potassium Serum 3.6 meq/L 3.5-5.1 [facility] ([facility]) Chloride Level 101 meq/L 98-[address] [facility] ([facility]) Carbon Dioxide Level 38 meq/L 21-32 [facility] ([facility]) Anion Gap 2 meq/L 8-[address] [facility] Calcium Level 8.9 mg/dL 8.8-10.[address] [facility] ([facility]) ID Date Data Source [id number] 07/19/2020 09:49:00 AM EST [facility] ([facility]) Name Value Range Interpretation Code Description Data Meseret rce(s) Supporting Document(s) MB/CK Relative Index 2.[address] [facility] ([facility]) <content>DIAGNOSIS CRITERIA</content>
<content>MMB ng/ml Relative Index (RI)</content>
<content>NON-AMI < or = 5 N/A</content>
<content>MEYER ZONE > 5 < or = 4</content>
<content>AMI > 5 > 4</content>
<content></content> CK-MB Value Mass Laboratory test result [facility] ([facility]) CPK Creatine Phosphokinase 38 U/L 26-192 [facility] ([facility]) Troponin I Laboratory test result [facility] ([facility]) <content>Troponin I Reference Interval f or Siemens [place] LOCI:</content>
<content></content>
<content>99th Percentile= 0.00-0.045 ng/ml</content>
<content></content>
<content>Risk Stratification:</content>
<content><= 0.10 ng/ml Decreased Risk for Adverse Clinical</content>
<content>Events.</content>
<content>0.10-1.50 ng/ml Increased Risk for Adverse Clinical</content>
<content>Events. Evaluation of additional</content>
<content>criterion and/or repeat testing in 2-6</content>
<content>hours is suggested to rule out myocardial</content>
<content>damage.</content>
<content>>= 1.50 ng/ml Indicative of Myocardial Injury.</content>
<content></content> ID Date Data Source [id number] 07/19/2020 09:49:00 AM EST [facility] ([facility]) Name Value Range Interpretation Code Description Data Meseret rce(s) Supporting Document(s) aPTT in Blood by Coagulation assay 43.2 s 24.2-38.5 [facility] ID Date Data Source [id number] 07/19/2020 09:49:00 AM EST [facility] ([facility]) Name Value Range Interpretation Code Description Data Meseret rce(s) Supporting Document(s) Inr 1.32 [facility] ([facility]) THERAPUTIC HUMAN INR VALUES INDICATIONS NORMAL RANGES PROPHYLAXIS/TREATMENT OF: VENOUS THROMBOSIS 2.0-3.0 PULMONARY EMBOLISM 2.0-3.0 PREVENTION OF SYSTEMIC EMBOLISM FROM: TISSUE HEART VALVES 2.0-3.0 ACUTE MYOCARDIAL INFARCTION 2.0-3.0 VALVULAR HEART DISEASE 2.0-3.0 ATRIAL FIBRILLATION 2.0-3.0 MECHANICAL VALVES(HIGH RISK) 2.5-3.5 RECURRENT MYOCARDIAL INFARCTION 2.5-3.5 Prothrombin Time 16.7 s 12.5-14.3 [facility] ([facility]) ID Date Data Source [id number] 07/19/2020 09:49:00 AM EST [facility] ([facility]) Name Value Range Interpretation Code Description Data Meseret rce(s) Supporting Document(s) White Blood Count 10.5 10 4.0-10.0 [facility] ([facility]) Hematocrit 43.2 % 36.0-47.0 [facility] ([facility]) Hemoglobin 13.3 g/dL 12.0-15.5 [facility] ([facility]) Red Blood Count 4.36 10 4.00-5.40 [facility] ([facility]) Mean Corpuscular Volume 99.1 fl 80.0-96.0 [facility] ([facility]) Mean Corpuscular HGB Conc 30.8 g/dL 32.0-36.5 [facility] NT ([facility]) Mean Corpuscular Hemoglobin 30.5 pg 27.0-33.0 [facility] ([facility]) Red Cell Distribution Width 13.2 % 11.5-14.5 [facility] ([facility]) Platelet Count, Automated 207 10 150-450 [facility] NT ([facility]) Neutrophils % 74.5 % 36.0-66.0 [facility] ([facility]) [place] % 5.8 % 0.0-5.0 [facility] ([facility]) Lymph % 15.8 % 24.0-44.0 [facility] ([facility]) Eos % 3.0 % 0.0-3.0 [facility] Nucleated Red Blood Cell % 0.0 % 0-0 [facility] ([facility]) Baso % 0.5 % 0.0-1.0 [facility] Immature Granulocyte % 0.4 % 0-3.0 [facility] ([facility]) [place] # 0.6 10 0.0-0.8 [facility] Lymph # 1.7 10 1.5-5.0 [facility] ([facility]) Neutrophils # 7.8 10 1.5-8.5 [facility] ([facility]) Baso # 0.1 10 0.0-0.2 [facility] ([facility]) Eos # 0.3 10 0.0-0.5 [facility] ([facility]) ID Date Data Source [id number] 06/22/2020 03:47:00 PM EDT [facility] ([facility]) Name Value Range Interpretation Code Description Data Meseret rce(s) Supporting Document(s) Urea nitrogen [Mass/volume] in Serum or Plasma 26 mg/dL 7-18 [facility] ([facility]) Creatinine 1.1 mg/dL 0.6-1.3 [facility] ([facility]) Glucose [Mass/volume] in Serum or Plasma 131 mg/dL 74-99 [facility] ([facility]) 100-125 mg/dL PRE-DIABETES/FASTING >126 mg/dL DIABETES/FASTING Sodium [Moles/volume] in Serum or Plasma 145 meq/L 136-145 [facility] ([facility]) Potassium [Moles/volume] in Serum or Plasma 3.1 meq/L 3.5-5.1 [facility] ([facility]) Chloride [Moles/volume] in Serum or Plasma 102 meq/L 98-107 [facility] ([facility]) Calcium [Mass/volume] in Serum or Plasma 8.8 mg/dL 8.5-10.1 [facility] ([facility]) Glomerular filtration rate/1.73 sq M pre dicted among non-blacks [Volume Rate/Area] in Serum or Plasma by Creatinine-based formula (MDRD) 48 mL/min [facility] ([facility]) Carbon dioxide, total [Moles/volume] in Serum or Plasma 36 meq/L 21 -32 [facility] ([facility]) Glomerular filtration rate/1.73 sq M pre dicted among blacks [Volume Rate/Area] in Serum or Plasma by Creatinine-based formula (MDRD) 58 mL/min [facility] ([facility]) <content>CHRONIC KIDNEY DISEASE STAGING PER NKF</content>
<content></content>
<content>STAGE I & II GFR >= 60 NORMAL TO MILDLY DECREASED</content>
<content>STAGE III GFR 30-59 MODERATELY DECREASED</content>
<content>STAGE IV GFR 15-29 SEVERELY DECREASED</content>
<content>STAGE V GFR <15 VERY LITTLE GFR LEFT</content>
<content>ESRD GFR <15 ON STITCHER FEEDER</content>
<content></content> ID Date Data Source [id number] 06/08/2020 11:11:00 AM EDT [facility] ([facility]) Name Value Range Interpretation Code Description Data Meseret rce(s) Supporting Document(s) Glucose [Mass/volume] in Serum or Plasma 110 mg/dL 74-99 [facility] ([facility]) 100-125 mg/dL PRE-DIABETES/FASTING >126 mg/dL DIABETES/FASTING Sodium [Moles/volume] in Serum or Plasma 141 meq/L 136-145 [facility] ([facility]) Creatinine 0.9 mg/dL 0.6-1.3 [facility] ([facility]) Urea nitrogen [Mass/volume] in Serum or Plasma 18 mg/dL 7-18 [facility] ([facility]) Carbon dioxide, total [Moles/volume] in Serum or Plasma 35 meq/L 21 -32 [facility] ([facility]) Potassium [Moles/volume] in Serum or Plasma 3.6 meq/L 3.5-5.1 [facility] ([facility]) Chloride [Moles/volume] in Serum or Plasma 101 meq/L 98-107 [facility] ([facility]) Calcium [Mass/volume] in Serum or Plasma 9.0 mg/dL 8.5-10.1 [facility] ([facility]) Glomerular filtration rate/1.73 sq M pre dicted among non-blacks [Volume Rate/Area] in Serum or Plasma by Creatinine-based formula (MDRD) Laboratory test [facility] Glomerular filtration rate/1.73 sq M pre dicted among blacks [Volume Rate/Area] in Serum or Plasma by Creatinine-based formula (MDRD) Laboratory test result [facility] <content>CHRONIC KIDNEY DISEASE STAGING PER NKF</content>
<content></content>
<content>STAGE I & II GFR >= 60 NORMAL TO MILDLY DECREASED</content>
<content>STAGE III GFR 30-59 MODERATELY DECREASED</content>
<content>STAGE IV GFR 15-29 SEVERELY DECREASED</content>
<content>STAGE V GFR <15 VERY LITTLE GFR LEFT</content>
<content>ESRD GFR <15 ON STITCHER FEEDER</content>
<content></content> ID Date Data Source [id number] 06/08/2020 11:11:00 AM EDT [facility] ([facility]) Name Value Range Interpretation Code Description Data Meseret rce(s) Supporting Document(s) Natriuretic peptide B [Mass/volume] in Serum or Plasma 189.0 pg/mL 0.0-100.0 [facility] ([facility]) ID Date Data Source [id number] 05/27/2020 07:44:00 AM EDT [facility] ([facility]) Name Value Range Interpretation Code Description Data Meseret rce(s) Supporting Document(s) ABG Partial Pressure Co2 56.9 mmHg 35.0-45.0 [facility] T ([facility]) ABG pH (Arterial) 7.402 units 7.350-7.450 [facility] ( [facility]) ABG Total Co2 36.4 meq/L 23.0-31.0 [facility] ([facility]) ABG Partial Pressure O2 131.8 mmHg 75.0-100.0 [facility] NT ([facility]) ABG Hco3 34.6 meq/L 22.0-26.0 [facility] ([facility]) ABG O2 Saturation 98.9 % 95.0-99.0 [facility] ([facility]) ABG Standard Hco3 31.8 meq/L 22.0-26.0 [facility] ([facility]) ABG Base Excess 7.9 [facility] ([facility]) ID Date Data Source [id number] 05/27/2020 07:42:00 AM EDT [facility] ([facility]) Name Value Range Interpretation Code Description Data Meseret rce(s) Supporting Document(s) White Blood Count 11.7 10 4.0-10.0 [facility] ([facility]) Red Blood Count 4.31 10 4.00-5.40 [facility] ([facility]) Mean Corpuscular Volume 101.4 fl 80.0-96.0 [facility] ([facility]) Hemoglobin 13.5 g/dL 12.0-15.5 [facility] ([facility]) Mean Corpuscular Hemoglobin 31.3 pg 27.0-33.0 [facility] ([facility]) Hematocrit 43.7 % 36.0-47.0 [facility] ([facility]) Platelet Count, Automated 181 10 150-450 [facility] NT ([facility]) Red Cell Distribution Width 13.4 % 11.5-14.5 [facility] ([facility]) Mean Corpuscular HGB Conc 30.9 g/dL 32.0-36.5 [facility] NT ([facility]) Neutrophils % 83.4 % 36.0-66.0 [facility] ([facility]) Lymph % 9.5 % 24.0-44.0 [facility] ([facility]) [place] % 4.9 % 0.0-5.0 [facility] Eos % 1.3 % 0.0-3.0 [facility] Nucleated Red Blood Cell % 0.0 % 0-0 [facility] ([facility]) Immature Granulocyte % 0.5 % 0-3.0 [facility] ([facility]) Baso % 0.4 % 0.0-1.0 [facility] ([facility]) Lymph # 1.1 10 1.5-5.0 [facility] Neutrophils # 9.8 10 1.5-8.5 [facility] ([facility]) [place] # 0.6 10 0.0-0.8 [facility] ([facility]) Baso # 0.1 10 0.0-0.2 [facility] Eos # 0.2 10 0.0-0.5 [facility] ID Date Data Source [id number] 05/27/2020 07:42:00 AM EDT [facility] ([facility]) Name Value Range Interpretation Code Description Data Meseret rce(s) Supporting Document(s) Prothrombin Time 16.2 s 11.8-14.0 [facility] ([facility]) Inr 1.28 [facility] ([facility]) THERAPUTIC HUMAN INR VALUES INDICATIONS NORMAL RANGES PROPHYLAXIS/TREATMENT OF: VENOUS THROMBOSIS 2.0-3.0 PULMONARY EMBOLISM 2.0-3.0 PREVENTION OF SYSTEMIC EMBOLISM FROM: TISSUE HEART VALVES 2.0-3.0 ACUTE MYOCARDIAL INFARCTION 2.0-3.0 VALVULAR HEART DISEASE 2.0-3.0 ATRIAL FIBRILLATION 2.0-3.0 MECHANICAL VALVES(HIGH RISK) 2.5-3.5 RECURRENT MYOCARDIAL INFARCTION 2.5-3.5 ID Date Data Source [id number] 05/27/2020 07:42:00 AM EDT [facility] ([facility]) Name Value Range Interpretation Code Description Data Meseret rce(s) Supporting Document(s) CPK Creatine Phosphokinase 32 U/L 26-192 [facility] ([facility]) CK-MB Value Mass 1.1 ng/mL [facility] ([facility]) Troponin I Laboratory test result [facility] <content>Troponin I Reference Interval f or Siemens [place] LOCI:</content>
<content></content>
<content>99th Percentile= 0.00-0.045 ng/ml</content>
<content></content>
<content>Risk Stratification:</content>
<content><= 0.10 ng/ml Decreased Risk for Adverse Clinical</content>
<content>Events.</content>
<content>0.10-1.50 ng/ml Increased Risk for Adverse Clinical</content>
<content>Events. Evaluation of additional</content>
<content>criterion and/or repeat testing in 2-6</content>
<content>hours is suggested to rule out myocardial</content>
<content>damage.</content>
<content>>= 1.50 ng/ml Indicative of Myocardial Injury.</content>
<content></content> MB/CK Relative Index 3.[address] [facility] ([facility]) <content>DIAGNOSIS CRITERIA</content>
<content>MMB ng/ml Relative Index (RI)</content>
<content>NON-AMI < or = 5 N/A</content>
<content>MEYER ZONE > 5 < or = 4</content>
<content>AMI > 5 > 4</content>
<content></content> ID Date Data Source [id number] 05/27/2020 07:42:00 AM EDT [facility] ([facility]) Name Value Range Interpretation Code Description Data Meseret rce(s) Supporting Document(s) Alt/SGPT 11 U/L 12-78 [facility] ([facility]) Ast/Sgot 10 U/L 7-37 [facility] ([facility]) Alkaline Phosphatase 79 U/L 45-117 [facility] ([facility]) Bilirubin,Total 1.1 mg/dL 0.2-1.0 [facility] ([facility]) Total Protein 6.5 GM/DL 6.4-8.2 [facility] ([facility]) Bilirubin,Direct 0.4 mg/dL 0.0-0.2 [facility] ([facility]) Albumin/Globulin Ratio 1.0 1.2-2.2 [facility] ([facility]) Albumin 3.3 GM/DL 3.2-5.2 [facility] ([facility]) ID Date Data Source [id number] 05/27/2020 07:42:00 AM EDT [facility] ([facility]) Name Value Range Interpretation Code Description Data Meseret rce(s) Supporting Document(s) Blood Urea Nitrogen 15 mg/dL 7-18 [facility] ([facility]) Creatinine For GFR 0.69 mg/dL 0.55-1.30 [facility] ([facility]) Glucose, Fasting 118 mg/dL 70-100 [facility] ([facility]) Glomerular Filtration Rate Laboratory test result [facility] <content>Units are mL/min/1.73 m2</content>
<content></content>
<content>Chronic Kidney Disease Staging per NKF:</content>
<content></content>
<content>Stage I & II GFR >=60 Normal to Mildly Decreased</content>
<content>Stage III GFR 30- 59 Moderately Decreased</content>
<content>Stage IV GFR 15-29 Severely Decreased</content>
<content>Stage V GFR <15 Very Little GFR Left</content>
<content>ESRD GFR <15 on STITCHER FEEDER</content>
<content></content> Sodium Level 142 meq/L 136-145 [facility] ([facility]) Potassium Serum 3.8 meq/L 3.5-5.1 [facility] ([facility]) Calcium Level 9.0 mg/dL 8.8-10.2 [facility] ([facility]) Carbon Dioxide Level 42 meq/L 21-32 [facility] Chloride Level 98 meq/L 98-107 [facility] ([facility]) Anion Gap 2 meq/L 8-16 [facility] ([facility]) ID Date Data Source [id number] 05/27/2020 07:42:00 AM EDT [facility] ([facility]) Name Value Range Interpretation Code Description Data Meseret rce(s) Supporting Document(s) Natriuretic peptide.B prohormone N-Terminal [Mass/volu me] in Serum or Plasma 2410 pg/mL [facility] ([facility] ) ID Date Data Source [id number] 05/27/2020 07:42:00 AM EDT [facility] ([facility]) Name Value Range Interpretation Code Description Data Meseret rce(s) Supporting Document(s) Respiratory Panel Laboratory test result [facility] ([facility]) This respiratory PCR panel detects Influ amarilis A H1, H3 and 2009 H1 viruses, Influenza B virus, Resp iratory Syncytial Virus, Human metapneumovirus, Parainfluenza virus 1, 2, 3 and 4, Adenovirus, Rhinovirus/Enterovirus, Coronavirus HKU1, NL63, OC43, 229E and SARS-CoV-2 (COVID 19), Bordetella pertussis, Bordetella parapertussis, Mycoplasma pneumoniae and Chlamydia pneumoniae. NEGATIVE by MULTIPLEXED NUCLEIC ACID PCR SARS-CoV-2 (COVID 19) NEGATIVE - SARS-CoV-2 (COVID19) ID Date Data Source [id number] 02/23/2020 04:13:00 PM EDT [facility] ([facility]) Name Value Range Interpretation Code Description Data Meseret rce(s) Supporting Document(s) C reactive protein [Mass/volume] in Serum or Plasma by High sensitivity method 4.54 mg/dL 0.00-0.30 [facility] ([facility] ) Urate [Mass/volume] in Serum or Plasma 7.8 mg/dL 2.6-6.0 [facility] ([facility]) ID Date Data Source [id number] 02/23/2020 04:13:00 PM EDT [facility] ([facility]) Name Value Range Interpretation Code Description Data Meseret rce(s) Supporting Document(s) Creatinine For GFR 0.62 mg/dL 0.55-1.30 [facility] ([facility]) Glucose, Fasting 103 mg/dL 70-100 [facility] ([facility]) Blood Urea Nitrogen 17 mg/dL 7-18 [facility] ([facility]) Glomerular Filtration Rate Laboratory test result [facility] ([facility]) <content>Units are mL/min/1.73 m2</content>
<content></content>
<content>Chronic Kidney Disease Staging per NKF:</content>
<content></content>
<content>Stage I & II GFR >=60 Normal to Mildly Decreased</content>
<content>Stage III GFR 30- 59 Moderately Decreased</content>
<content>Stage IV GFR 15-29 Severely Decreased</content>
<content>Stage V GFR <15 Very Little GFR Left</content>
<content>ESRD GFR <15 on STITCHER FEEDER</content>
<content></content> Chloride Level 101 meq/L 98-107 [facility] ([facility]) Sodium Level 144 meq/L 136-145 [facility] ([facility]) Potassium Serum 3.8 meq/L 3.5-5.1 [facility] ([facility]) Anion Gap 4 meq/L 8-16 [facility] ([facility]) Calcium Level 8.2 mg/dL 8.8-10.2 [facility] ([facility]) Carbon Dioxide Level 39 meq/L 21-32 [facility] ([facility]) ID Date Data Source [id number] 02/23/2020 04:13:00 PM EDT [facility] ([facility]) Name Value Range Interpretation Code Description Data Meseret rce(s) Supporting Document(s) Erythrocyte sedimentation rate by Westergren method 25 mm/hr 0-30 [facility] ([facility]) ID Date Data Source [id number] 02/23/2020 04:13:00 PM EDT [facility] ([facility]) Name Value Range Interpretation Code Description Data Meseret rce(s) Supporting Document(s) White Blood Count 13.0 10 4.0-10.0 [facility] ([facility]) Hemoglobin 13.6 g/dL 12.0-15.5 [facility] ([facility]) Red Blood Count 4.41 10 4.00-5.40 [facility] ([facility]) Hematocrit 44.2 % 36.0-47.0 [facility] ([facility]) Mean Corpuscular Hemoglobin 30.8 pg 27.0-33.0 [facility] ([facility]) Red Cell Distribution Width 13.2 % 11.5-14.5 [facility] ([facility]) Mean Corpuscular Volume 100.2 fl 80.0-96.0 [facility] ([facility]) Mean Corpuscular HGB Conc 30.8 g/dL 32.0-36.5 [facility] NT ([facility]) Platelet Count, Automated 183 10 150-450 [facility] ([facility]) Neutrophils % 82.2 % 36.0-66.0 [facility] ([facility]) Lymph % 9.1 % 24.0-44.0 [facility] ([facility]) Baso % 0.4 % 0.0-1.0 [facility] ([facility]) [place] % 6.6 % 0.0-5.0 [facility] ([facility]) Eos % 1.3 % 0.0-3.0 [facility] ([facility]) Neutrophils # 10.7 10 1.5-8.5 [facility] ([facility]) Immature Granulocyte % 0.4 % 0-3.0 [facility] ([facility]) Lymph # 1.2 10 1.5-5.0 [facility] ([facility]) Nucleated Red Blood Cell % 0.0 % 0-0 [facility] ([facility]) Baso # 0.1 10 0.0-0.2 [facility] ([facility]) [place] # 0.9 10 0.0-0.8 [facility] ([facility]) Eos # 0.2 10 0.0-0.5 [facility] ([facility]) Procedure Vital Signs ID Date Data Source [id number] Name Value Range Interpretation Code Description Data Source(s) Body mass index (BMI) [Ratio] 39.7 kg/m2 39.7 k g/m2 [facility] ([facility]) Body weight 190.00 [lb_av] 190.00 [lb_av] [facility] T ([facility]) Body height 58 [in_i] 58 [in_i] [facility] ([facility]) 4'10" Heart rate 82 /min 82 /min [facility] ([facility]) Diastolic blood pressure 70 mm[Hg] 70 mm[Hg] [facility] ([facility]) Systolic blood pressure 120 mm[Hg] 120 mm[Hg] [facility] ([facility]) Body mass index (BMI) [Ratio] 39.1 kg/m2 39.1 k g/m2 [facility] ([facility]) Oxygen saturation in Arterial blood by Pulse oximetry 96 % 96 % [facility] ([facility]) With O2 Body weight 187.00 [lb_av] 187.00 [lb_av] [facility] ([facility]) Body height 58 [in_i] 58 [in_i] [facility] ([facility]) 4'10" Heart rate 89 /min 89 /min [facility] ([facility]) Diastolic blood pressure 70 mm[Hg] 70 mm[Hg] [facility] ([facility]) Systolic blood pressure 130 mm[Hg] 130 mm[Hg] Rudi LEE ([facility])
[2020-10-18] MEDS ORDERED: methylPREDNISolone 125MG 2ML VIAL IV ONE (01:00)
[2020-10-18] MEDS ORDERED: MAG SULF 1GM/100ML (MAG RUN) 1 GM in IV 1 EA IV ONE ×2 (01:00→02:00)
[2020-10-18 01:20] LABS: BASO # 0.1 10^3/uL (0.0-0.2); BASO % 0.5 % (0.0-1.0); EOS # 0.2 10^3/uL (0.0-0.5); EOS % 1.4 % (0.0-3.0); HEMATOCRIT 47.2 % (36.0-47.0); HEMOGLOBIN 14.1 g/dl (12.0-15.5); LYMPH # 1.1 10^3/uL (1.5-5.0); LYMPH % 9.5 % (24.0-44.0); MEAN CORPUSCULAR HEMOGLOBIN 30.4 pg (27.0-33.0); MEAN CORPUSCULAR HGB CONC 29.9 g/dl (32.0-36.5); MEAN CORPUSCULAR VOLUME 101.7 fl (80.0-96.0); MONO # 0.7 10^3/uL (0.0-0.8); MONO % 6.4 % (0.0-5.0); NEUTROPHILS % 81.7 % (36.0-66.0); PLATELET COUNT, AUTOMATED 186 10^3/uL (150-450); RED BLOOD COUNT 4.64 10^6/uL (4.00-5.40)
--- NOTE | 2020-10-18 01:51 | REPVR ---
PROCEDURE INFORMATION: Exam: XR Chest, 1 View Exam date and time: 10/18/20 (1:12am) Age: 75 years old Clinical indication: Cough and dyspnea TECHNIQUE: Imaging protocol: Portable CXR Views: 1 view COMPARISON: Portable CXR of 07/19/20 FINDINGS: Comparison is made with a portable CXR done on 07/19/20. Stable cardiomegaly. No focal infiltrates. No pleural effusions. Mildly prominent vascular markings (unchanged). Large patient size. IMPRESSION: No acute findings. Stable cardiomegaly. Electronically signed by: Bridgette Hammer On 10/18/2020 01:51:03 AM
[2020-10-18 01:59] LABS: RSV AMPLIFICATION NEGATIVE (NEGATIVE)
[2020-10-18 02:06] LABS: ALBUMIN 3.6 GM/DL (3.2-5.2); ALT/SGPT 10 U/L (12-78); BILIRUBIN,DIRECT 0.4 MG/DL (0.0-0.2); BLOOD UREA NITROGEN 36 MG/DL (7-18); CALCIUM LEVEL 9.1 MG/DL (8.8-10.2); CARBON DIOXIDE LEVEL 48 MEQ/L (21-32); CHLORIDE LEVEL 97 MEQ/L (98-107); CREATININE FOR GFR 1.12 MG/DL (0.55-1.30); GLOMERULAR FILTRATION RATE 50.2 (>39); GLUCOSE, FASTING 133 MG/DL (70-100); NT-PRO BNP 3226 PG/ML (<450); POTASSIUM SERUM 3.9 MEQ/L (3.5-5.1); SODIUM LEVEL 143 MEQ/L (136-145); TOTAL PROTEIN 6.8 GM/DL (6.4-8.2); TROPONIN I < 0.02 NG/ML (< 0.10)
--- OUTSIDE RECORDS SUMMARY | 2020-10-18 02:12 | CCD ---
Author Author [facility] Organization [facility] Address Unknown Phone Unavailable Care Team Providers Care Car Rental Agent Name Role Phone Delroy, M Della RPA [...] is protected by Article 27-F of the [facility] Public Health law. If you continue you may have access to information: Regarding HIV / AIDS; Provided by facilities licensed or operated by the [facility] Office of Mental Health; or Provided by the [facility] Office for People With Developmental Disabilities. If such information is present, then the following [facility] mandated warning applies: This information has been [...] law may result in a fine or halfway sentence or both. A general authorization for the release of medical or other information is NOT sufficient authorization for further disc losure. Family History Family Member Name Family Member Gender Family Member Status Date o f Status Description Data Source(s) Unknown Unknown Problem [facility] (Elian luna [employer]UR[employer] MONITOR) Unknown Female Problem [facility] ([facility]) Unknown Male Problem [facility] ([facility]) Unknown Female Problem [facility] ([facility]) Encounters Encounter Providers Location Date Indications Data Source(s ) Outpatient Attender: DELFIN Cary 1 03:20:00 PM EDT [facility] ([facility] ) Outpatient Attender: DELFIN Cary 0 06/08/2020 10:40:00 AM EDT [facility] ([facility] ) Outpatient Attender: Della Potts RPA ADULT PC 02/25/2020 07:37:44 PM EDT [facility] Outpatient Attender: DELFIN Cary 0 02/24/2020 02:40:00 PM EDT [facility] ([facility] ) Outpatient Attender: Shanta Cary 11:45:00 AM EDT [facility] ([facility] ) Medications Medication Brand Name Start [...] 07/17/2020 12:00:00 AM EDT ORAL active [facility] ([facility]) Potassium Chloride 20 MEQ Extended Release Oral Tablet Potassium Chloride [facility] 06/23/2020 12:00:00 AM EDT ORAL active [facility] ([facility]) 20 mg 06/19/2020 12:00:00 AM EDT [...] 06/12/2020 12:00:00 AM EDT ORAL completed [facility] ([facility]) tiotropium 0.018 MG/ACTUAT Inhalant Powder [Spiriva] Spiriva Handihaler 06/08/2020 12:00:00 AM EDT active [facility] ([facility]) Furosemide 20 MG Oral Tablet Furosemide 06/08/2020 12:00:00 AM EDT ORAL active [facility] ([facility]) 20 mg 06/08/2020 12:00:00 AM EDT [...] 02/24/2020 12:00:00 AM EDT ORAL active [facility] ([facility]) 20 mg 02/24/2020 12:00:00 AM EDT tablet 8 TAKE TWO TABLETS BY MOUTH EVERY DAY TAKE TWO TABLETS BY MOUTH EVERY DAY SOLD: 02/24/2020 [facility] Amoxicillin 500 MG Oral Capsule Amoxicillin 02/21/2020 12:00:00 AM EDT active [facility] ([facility]) 500 mg 02/21/2020 12:00:00 AM EDT [...] type / Coverage type Policy ID Covered libertarian ID Covered libertarian's relationship to zhang Policy Zhang Plan Information UMR [facility] [id number] SP [id number] MEDICARE [id number] SP [id number] UMR O [id number] S [id number] MEDICARE C [id number] S [id number] [place]OM[place] S [id number] S [id number] Medicare P [id number] S [id number] A [place]/Umr (Old) Medigap Part B [id number] Self [id number] Medicare Natl Govt Servic Medicare Primary [id number] Self [id number] Umr (New [place]) Medigap Part B [id number] Self [id number] [place] Primary [id number] Self [id number] Umr Medigap Part B [id number] Self [id number] UMR [facility] [id number] SP [id number] [place] Primary [id number] Self [id number] [place]/Umr (Old) Medigap Part B [id number] Self [id number] Medicare [place] Govt Servic Medicare Primary [id number] Self [id number] [place]/Umr (Old) Medigap Part B [id number] Self [id number] Medicare [place] Govt Servic Medicare Primary [id number] Self [id number] [place]/Umr (Old) Medigap Part B [id number] Self [id number] Medicare [place] Govt Servic Medicare Primary [id number] Self [id number] POMCO [id number] SP [id number] MEDICARE [id number] SP [id number] A [place]/Umr (Old) Medigap Part B [id number] Self [id number] Medicare [place] Govt Servic Medicare Primary [id number] Self [id number] [place] Ppo Medigap Part B [id number] Self [id number] Medicare [place] Govt Servic Medicare Primary [id number] Self [id number] [place] Ppo Medigap Part B [id number] Self [id number] Medicare Natl Govt Servic Medicare Primary [id number] Self [id number] [place] Ppo Medigap Part B [id number] Self [id number] Medicare Natl Govt Servic Medicare Primary [id number] Self [id number] [place] Ppo Medigap Part B [id number] Self [id number] Medicare [place] Govt Servic Medicare Primary [id number] Self [id number] [place] Ppo Medigap Part B [id number] Self [id number] Medicare [place] Govt Servic Medicare Primary [id number] Self [id number] [place] Ppo Medigap Part B [id number] Self [id number] Medicare [place] Govt Servic Medicare Primary [id number] Self [id number] POMCO PPO O [id number] S [id number] MEDICARE C [id number] S [id number] A [facility] C [id number] S [id number] [place] Ppo Medigap Part B [id number] Self [id number] Medicare [place] Govt Servic Medicare Primary [id number] Self [id number] [place] (pr) Medigap Part B Self [place] Primary Self [place] Ppo Medigap Part B 335 Self 335 Medicare [place] Govt Servic Medicare Primary Self [place] Medigap Part B 335 Self 335 Medicare [place]/[facility] [place] Medicare Primary Self POMCO [id number] SP [id number] POMCO [id number] SP [id number] POMCO PPO S [id number] S [id number] POMCO [id number] SP [id number] A [id number] Results ID Date Data Source [id number] 07/19/2020 10:17:00 AM EST MED[facility] ([facility]) Name Value Range Interpretation Code Description Data Meseret rce(s) Supporting Document(s) Bedside Glucose 105 mg/dL 83-110 [facility] ([facility]) ID Date Data Source [id number] 07/19/2020 09:49:00 AM EST [facility] ([facility]) Name Value Range Interpretation Code Description Data Meseret rce(s) Supporting Document(s) Magnesium [Moles/volume] in Serum or Plasma 1.6 mg/dL 1.8-2.4 [facility] ([facility]) Thyrotropin [Units/volume] in Serum or Plasma by Detec tion limit <= 0.05 mIU/L 1.440 uIU/ML 0.358-3.740 [facility] ([facility] ) Thyroxine (T4) free [Mass/volume] in Serum or Plasma 1.05 ng/dL 0.76- 1.46 [facility] ([facility]) ID Date Data Source [id number] 07/19/2020 09:49:00 AM EST [facility] ([facility]) Name Value Range Interpretation Code Description Data Meseret rce(s) Supporting Document(s) Blood Urea Nitrogen 21 mg/dL 7-18 [facility] ([facility]) Glucose, Fasting 131 mg/dL 70-100 [facility] ([facility]) Glomerular Filtration Rate 55.9 MED ENT ([facility]) <content>Units are mL/min/1.73 m2</content>
<content></content>
<content>Chronic Kidney Disease Staging per NKF:</content>
<content></content>
<content>Stage I & II GFR >=60 Normal to Mildly Decreased</content>
<content>Stage III GFR 30- 59 Moderately Decreased</content>
<content>Stage IV GFR 15-29 Severely Decreased</content>
<content>Stage V GFR <15 Very Little GFR Left</content>
<content>ESRD GFR <15 on AUTHORIZATION SPECIALIST</content>
<content></content> Sodium Level 141 meq/L 136-145 [facility] ([facility]) Creatinine For GFR 1.02 mg/dL 0.55-1.30 [facility] ([facility]) Potassium Serum 3.6 meq/L 3.5-5.1 [facility] ([facility]) Chloride Level 101 meq/L 98-107 [facility] ([facility]) Carbon Dioxide Level 38 meq/L 21-32 [facility] ([facility]) Anion Gap 2 meq/L 8-16 [facility] Calcium Level 8.9 mg/dL 8.8-10.2 [facility] ([facility]) ID Date Data Source [id number] 07/19/2020 09:49:00 AM EST [facility] ([facility]) Name Value Range Interpretation Code Description Data Meseret rce(s) Supporting Document(s) MB/CK Relative Index 2.63 [facility] ([facility]) <content>DIAGNOSIS CRITERIA</content>
<content>MMB ng/ml Relative Index (RI)</content>
<content>NON-AMI < or = 5 N/A</content>
<content>MEYER ZONE > 5 < or = 4</content>
<content>AMI > 5 > 4</content>
<content></content> CK-MB Value Mass Laboratory test result [facility] ([facility]) CPK Creatine Phosphokinase 38 U/L 26-192 [facility] ([facility]) Troponin I Laboratory test result [facility] ([facility]) <content>Troponin I Reference Interval f or Siemens Camargo LOCI:</content>
<content></content>
<content>99th Percentile= 0.00-0.045 ng/ml</content>
<content></content>
<content>Risk Stratification:</content>
<content><= 0.10 ng/ml Decreased Risk for Adverse Clinical</content>
<content>Events.</content>
<content>0.10-1.50 ng/ml Increased Risk for Adverse Clinical</content>
<content>Events. Evaluation of additional</content>
<content>criterion and/or repeat testing in 2-6</content>
<content>hours is suggested to rule out myocardial</content>
<content>damage.</content>
<content>>= 1.50 ng/ml Indicative of Myocardial Injury.</content>
<content></content> ID Date Data Source [id number] 07/19/2020 09:49:00 AM EST [facility] ([facility]) Name Value Range Interpretation Code Description Data Meseret rce(s) Supporting Document(s) aPTT in Blood by Coagulation assay 43.2 s 24.2-38.5 [facility] ID Date Data Source [id number] 07/19/2020 09:49:00 AM EST [facility] ([facility]) Name Value Range Interpretation Code Description Data Meseret rce(s) Supporting Document(s) Inr 1.32 [facility]) THERAPUTIC HUMAN INR VALUES INDICATIONS NORMAL RANGES PROPHYLAXIS/TREATMENT OF: VENOUS THROMBOSIS 2.0-3.0 PULMONARY EMBOLISM 2.0-3.0 PREVENTION OF SYSTEMIC EMBOLISM FROM: TISSUE HEART VALVES 2.0-3.0 ACUTE MYOCARDIAL INFARCTION 2.0-3.0 VALVULAR HEART DISEASE 2.0-3.0 ATRIAL FIBRILLATION 2.0-3.0 MECHANICAL VALVES(HIGH RISK) 2.5-3.5 RECURRENT MYOCARDIAL INFARCTION 2.5-3.5 Prothrombin Time 16.7 s 12.5-14.3 [facility] ([facility]) ID Date Data Source [id number] 07/19/2020 09:49:00 AM EST [facility] ([facility]) Name Value Range Interpretation Code Description Data Meseret rce(s) Supporting Document(s) White Blood Count 10.5 10 4.0-10.0 [facility] ([facility]) Hematocrit 43.2 % 36.0-47.0 [facility] Hemoglobin 13.3 g/dL 12.0-15.5 [facility] Red Blood Count 4.36 10 4.00-5.40 [facility] ([facility]) Mean Corpuscular Volume 99.1 fl 80.0-96.0 [facility] ([facility]) Mean Corpuscular HGB Conc 30.8 g/dL 32.0-36.5 MEDE NT ([facility]) Mean Corpuscular Hemoglobin 30.5 pg 27.0-33.0 ME DENT ([facility]) Red Cell Distribution Width 13.2 % 11.5-14.5 ME DENT ([facility]) Platelet Count, Automated 207 10 150-450 MEDE NT ([facility]) Neutrophils % 74.5 % 36.0-66.0 [facility] ([facility]) Anderson % 5.8 % 0.0-5.0 [facility] Lymph % 15.8 % 24.0-44.0 [facility]) Eos % 3.0 % 0.0-3.0 [facility] Nucleated Red Blood Cell % 0.0 % 0-0 MED [facility] ([facility]) Baso % 0.5 % 0.0-1.0 [facility] Immature Granulocyte % 0.4 % 0-3.0 [facility] ([facility]) Anderson # 0.6 10 0.0-0.8 [facility] Lymph # 1.7 10 1.5-5.0 [facility]) Neutrophils # 7.8 10 1.5-8.5 [facility] ([facility]) Baso # 0.1 10 0.0-0.2 [facility]) Eos # 0.3 10 0.0-0.5 [facility]) ID Date Data Source [id number] 06/22/2020 03:47:00 PM EDT [facility] ([facility]) Name Value Range Interpretation Code Description Data Meseret rce(s) Supporting Document(s) Urea nitrogen [Mass/volume] in Serum or Plasma 26 mg/dL 7-18 [facility] ([facility]) Creatinine 1.1 mg/dL 0.6-1.3 [facility] ([facility]) Glucose [Mass/volume] in Serum or Plasma 131 mg/dL 74-99 [facility] ([facility]) 100-125 mg/dL PRE-DIABETES/FASTING >126 mg/dL DIABETES/FASTING Sodium [Moles/volume] in Serum or Plasma 145 meq/L 136-145 [facility] ([facility]) Potassium [Moles/volume] in Serum or Plasma 3.1 meq/L 3.5-5.1 [facility] ([facility]) Chloride [Moles/volume] in Serum or Plasma 102 meq/L 98-107 [facility] ([facility]) Calcium [Mass/volume] in Serum or Plasma 8.8 mg/dL 8.5-10.1 [facility] ([facility]) Glomerular filtration rate/1.73 sq M pre dicted among non-blacks [Volume Rate/Area] in Serum or Plasma by Creatinine-based formula (MDRD) 48 mL/min [facility] ([facility]) Carbon dioxide, total [Moles/volume] in Serum or Plasma 36 meq/L 21 -32 [facility] ([facility]) Glomerular filtration rate/1.73 sq M pre dicted among blacks [Volume Rate/Area] in Serum or Plasma by Creatinine-based formula (MDRD) 58 mL/min [facility] ([facility]) <content>CHRONIC KIDNEY DISEASE STAGING PER NKF</content>
<content></content>
<content>STAGE I & II GFR >= 60 NORMAL TO MILDLY DECREASED</content>
<content>STAGE III GFR 30-59 MODERATELY DECREASED</content>
<content>STAGE IV GFR 15-29 SEVERELY DECREASED</content>
<content>STAGE V GFR <15 VERY LITTLE GFR LEFT</content>
<content>ESRD GFR <15 ON AUTHORIZATION SPECIALIST</content>
<content></content> ID Date Data Source [id number] 06/08/2020 11:11:00 AM EDT [facility] ([facility]) Name Value Range Interpretation Code Description Data Meseret rce(s) Supporting Document(s) Glucose [Mass/volume] in Serum or Plasma 110 mg/dL 74-99 [facility] ([facility]) 100-125 mg/dL PRE-DIABETES/FASTING >126 mg/dL DIABETES/FASTING Sodium [Moles/volume] in Serum or Plasma 141 meq/L 136-145 [facility] ([facility]) Creatinine 0.9 mg/dL 0.6-1.3 [facility] ([facility]) Urea nitrogen [Mass/volume] in Serum or Plasma 18 mg/dL 7-18 [facility] ([facility]) Carbon dioxide, total [Moles/volume] in Serum or Plasma 35 meq/L 21 -32 [facility] ([facility]) Potassium [Moles/volume] in Serum or Plasma 3.6 meq/L 3.5-5.1 [facility] ([facility]) Chloride [Moles/volume] in Serum or Plasma 101 meq/L 98-107 [facility] ([facility]) Calcium [Mass/volume] in Serum or Plasma 9.0 mg/dL 8.5-10.1 [facility] ([facility]) Glomerular filtration rate/1.73 sq M pre dicted among non-blacks [Volume Rate/Area] in Serum or Plasma by Creatinine-based formula (MDRD) Laboratory test result [facility] Glomerular filtration rate/1.73 sq M pre dicted among blacks [Volume Rate/Area] in Serum or Plasma by Creatinine-based formula (MDRD) Laboratory test result [facility] <content>CHRONIC KIDNEY DISEASE STAGING PER NKF</content>
<content></content>
<content>STAGE I & II GFR >= 60 NORMAL TO MILDLY DECREASED</content>
<content>STAGE III GFR 30-59 MODERATELY DECREASED</content>
<content>STAGE IV GFR 15-29 SEVERELY DECREASED</content>
<content>STAGE V GFR <15 VERY LITTLE GFR LEFT</content>
<content>ESRD GFR <15 ON AUTHORIZATION SPECIALIST</content>
<content></content> ID Date Data Source [id number] 06/08/2020 11:11:00 AM EDT [facility] ([facility]) Name Value Range Interpretation Code Description Data Mesreet rce(s) Supporting Document(s) Natriuretic peptide B [Mass/volume] in Serum or Plasma 189.0 pg/mL 0.0-100.0 [facility] ([facility]) ID Date Data Source [id number] 05/27/2020 07:44:00 AM EDT [facility] ([facility]) Name Value Range Interpretation Code Description Data Meseret rce(s) Supporting Document(s) ABG Partial Pressure Co2 56.9 mmHg 35.0-45.0 MEDEN T ([facility]) ABG pH (Arterial) 7.402 units 7.350-7.450 [facility] ( [facility]) ABG Total Co2 36.4 meq/L 23.0-31.0 [facility] ([facility]) ABG Partial Pressure O2 131.8 mmHg 75.0-100.0 MEDE NT ([facility]) ABG Hco3 34.6 meq/L 22.0-26.0 [facility] ABG O2 Saturation 98.9 % 95.0-99.0 [facility] ([facility]) ABG Standard Hco3 31.8 meq/L 22.0-26.0 [facility] ([facility]) ABG Base Excess 7.9 [facility] ([facility]) ID Date Data Source [id number] 05/27/2020 07:42:00 AM EDT [facility] ([facility]) Name Value Range Interpretation Code Description Data Emseret rce(s) Supporting Document(s) White Blood Count 11.7 10 4.0-10.0 [facility] ([facility]) Red Blood Count 4.31 10 4.00-5.40 [facility] ([facility]) Mean Corpuscular Volume 101.4 fl 80.0-96.0 [facility] ([facility]) Hemoglobin 13.5 g/dL 12.0-15.5 [facility]) Mean Corpuscular Hemoglobin 31.3 pg 27.0-33.0 ME [facility] ([facility]) Hematocrit 43.7 % 36.0-47.0 [facility] Platelet Count, Automated 181 10 150-450 MED[facility] NT ([facility]) Red Cell Distribution Width 13.4 % 11.5-14.5 ME [facility] ([facility]) Mean Corpuscular HGB Conc 30.9 g/dL 32.0-36.5 MED[facility] NT ([facility]) Neutrophils % 83.4 % 36.0-66.0 [facility] ([facility]) Lymph % 9.5 % 24.0-44.0 [facility]) Anderson % 4.9 % 0.0-5.0 [facility] Eos % 1.3 % 0.0-3.0 [facility] Nucleated Red Blood Cell % 0.0 % 0-0 MED [facility] ([facility]) Immature Granulocyte % 0.5 % 0-3.0 [facility] ([facility]) Baso % 0.4 % 0.0-1.0 [facility]) Lymph # 1.1 10 1.5-5.0 [facility] Neutrophils # 9.8 10 1.5-8.5 [facility] ([facility]) Anderson # 0.6 10 0.0-0.8 [facility] Baso # 0.1 10 0.0-0.2 [facility] Eos # 0.2 10 0.0-0.5 [facility] ID Date Data Source [id number] 05/27/2020 07:42:00 AM EDT [facility] ([facility]) Name Value Range Interpretation Code Description Data Meseret rce(s) Supporting Document(s) Prothrombin Time 16.2 s 11.8-14.0 [facility] ([facility]) Inr 1.28 [facility]) THERAPUTIC HUMAN INR VALUES INDICATIONS NORMAL RANGES PROPHYLAXIS/TREATMENT OF: VENOUS THROMBOSIS 2.0-3.0 PULMONARY EMBOLISM 2.0-3.0 PREVENTION OF SYSTEMIC EMBOLISM FROM: TISSUE HEART VALVES 2.0-3.0 ACUTE MYOCARDIAL INFARCTION 2.0-3.0 VALVULAR HEART DISEASE 2.0-3.0 ATRIAL FIBRILLATION 2.0-3.0 MECHANICAL VALVES(HIGH RISK) 2.5-3.5 RECURRENT MYOCARDIAL INFARCTION 2.5-3.5 ID Date Data Source [id number] 05/27/2020 07:42:00 AM EDT [facility] ([facility]) Name Value Range Interpretation Code Description Data Meseret rce(s) Supporting Document(s) CPK Creatine Phosphokinase 32 U/L 26-192 [facility] ([facility]) CK-MB Value Mass 1.1 ng/mL [facility] ([facility]) Troponin I Laboratory test result [facility] <content>Troponin I Reference Interval f or Siemens Camargo LOCI:</content>
<content></content>
<content>99th Percentile= 0.00-0.045 ng/ml</content>
<content></content>
<content>Risk Stratification:</content>
<content><= 0.10 ng/ml Decreased Risk for Adverse Clinical</content>
<content>Events.</content>
<content>0.10-1.50 ng/ml Increased Risk for Adverse Clinical</content>
<content>Events. Evaluation of additional</content>
<content>criterion and/or repeat testing in 2-6</content>
<content>hours is suggested to rule out myocardial</content>
<content>damage.</content>
<content>>= 1.50 ng/ml Indicative of Myocardial Injury.</content>
<content></content> MB/CK Relative Index 3.44 [facility] ([facility]) <content>DIAGNOSIS CRITERIA</content>
<content>MMB ng/ml Relative Index (RI)</content>
<content>NON-AMI < or = 5 N/A</content>
<content>MEYER ZONE > 5 < or = 4</content>
<content>AMI > 5 > 4</content>
<content></content> ID Date Data Source [id number] 05/27/2020 07:42:00 AM EDT [facility] ([facility]) Name Value Range Interpretation Code Description Data Meseret rce(s) Supporting Document(s) Alt/SGPT 11 U/L 12-78 [facility] ([facility]) Ast/Sgot 10 U/L 7-37 [facility] ([facility]) Alkaline Phosphatase 79 U/L 45-117 [facility] ([facility]) Bilirubin,Total 1.1 mg/dL 0.2-1.0 [facility] ([facility]) Total Protein 6.5 GM/DL 6.4-8.2 [facility] ([facility]) Bilirubin,Direct 0.4 mg/dL 0.0-0.2 [facility] ([facility]) Albumin/Globulin Ratio 1.0 1.2-2.2 [facility] ([facility]) Albumin 3.3 GM/DL 3.2-5.2 [facility] ([facility]) ID Date Data Source [id number] 05/27/2020 07:42:00 AM EDT [facility] ([facility]) Name Value Range Interpretation Code Description Data Meseret rce(s) Supporting Document(s) Blood Urea Nitrogen 15 mg/dL 7-18 [facility] ([facility]) Creatinine For GFR 0.69 mg/dL 0.55-1.30 [facility] ([facility]) Glucose, Fasting 118 mg/dL 70-100 [facility] ([facility]) Glomerular Filtration Rate Laboratory test result [facility] <content>Units are mL/min/1.73 m2</content>
<content></content>
<content>Chronic Kidney Disease Staging per NKF:</content>
<content></content>
<content>Stage I & II GFR >=60 Normal to Mildly Decreased</content>
<content>Stage III GFR 30- 59 Moderately Decreased</content>
<content>Stage IV GFR 15-29 Severely Decreased</content>
<content>Stage V GFR <15 Very Little GFR Left</content>
<content>ESRD GFR <15 on AUTHORIZATION SPECIALIST</content>
<content></content> Sodium Level 142 meq/L 136-145 [facility] ([facility]) Potassium Serum 3.8 meq/L 3.5-5.1 [facility] ([facility]) Calcium Level 9.0 mg/dL 8.8-10.2 [facility] ([facility]) Carbon Dioxide Level 42 meq/L 21-32 [facility] Chloride Level 98 meq/L 98-107 [facility] ([facility]) Anion Gap 2 meq/L 8-16 [facility] ([facility]) ID Date Data Source [id number] 05/27/2020 07:42:00 AM EDT [facility] ([facility]) Name Value Range Interpretation Code Description Data Meseret rce(s) Supporting Document(s) Natriuretic peptide.B prohormone N-Terminal [Mass/volu me] in Serum or Plasma 2410 pg/mL [facility] ([facility] ) ID Date Data Source [id number] 05/27/2020 07:42:00 AM EDT [facility] ([facility]) Name Value Range Interpretation Code Description Data Meseret rce(s) Supporting Document(s) Respiratory Panel Laboratory test result [facility] ([facility]) This respiratory PCR panel detects Influ [...] - SARS-CoV-2 (COVID19) ID Date Data Source [id number] 02/23/2020 04:13:00 PM EDT [facility] ([facility]) Name Value Range Interpretation Code Description Data Meseret rce(s) Supporting Document(s) C reactive protein [Mass/volume] in Serum or Plasma by High sensitivity method 4.54 mg/dL 0.00-0.30 [facility] ([facility] ) Urate [Mass/volume] in Serum or Plasma 7.8 mg/dL 2.6-6.0 [facility] ([facility]) ID Date Data Source [id number] 02/23/2020 04:13:00 PM EDT [facility] ([facility]) Name Value Range Interpretation Code Description Data Meseret rce(s) Supporting Document(s) Creatinine For GFR 0.62 mg/dL 0.55-1.30 [facility] ([facility]) Glucose, Fasting 103 mg/dL 70-100 [facility] ([facility]) Blood Urea Nitrogen 17 mg/dL 7-18 [facility] ([facility]) Glomerular Filtration Rate Laboratory test result [facility] ([facility]) <content>Units are mL/min/1.73 m2</content>
<content></content>
<content>Chronic Kidney Disease Staging per NKF:</content>
<content></content>
<content>Stage I & II GFR >=60 Normal to Mildly Decreased</content>
<content>Stage III GFR 30- 59 Moderately Decreased</content>
<content>Stage IV GFR 15-29 Severely Decreased</content>
<content>Stage V GFR <15 Very Little GFR Left</content>
<content>ESRD GFR <15 on AUTHORIZATION SPECIALIST</content>
<content></content> Chloride Level 101 meq/L 98-107 [facility] ([facility]) Sodium Level 144 meq/L 136-145 [facility] ([facility]) Potassium Serum 3.8 meq/L 3.5-5.1 [facility] ([facility]) Anion Gap 4 meq/L 8-16 [facility]) Calcium Level 8.2 mg/dL 8.8-10.2 [facility] ([facility]) Carbon Dioxide Level 39 meq/L 21-32 [facility] ([facility]) ID Date Data Source [id number] 02/23/2020 04:13:00 PM EDT [facility] ([facility]) Name Value Range Interpretation Code Description Data Meseret rce(s) Supporting Document(s) Erythrocyte sedimentation rate by Westergren method 25 mm/hr 0-30 [facility] ([facility]) ID Date Data Source [id number] 02/23/2020 04:13:00 PM EDT [facility] ([facility]) Name Value Range Interpretation Code Description Data Meseret rce(s) Supporting Document(s) White Blood Count 13.0 10 4.0-10.0 [facility] ([facility]) Hemoglobin 13.6 g/dL 12.0-15.5 [facility] Red Blood Count 4.41 10 4.00-5.40 [facility] ([facility]) Hematocrit 44.2 % 36.0-47.0 [facility] ([facility]) Mean Corpuscular Hemoglobin 30.8 pg 27.0-33.0 SC [facility] ([facility]) Red Cell Distribution Width 13.2 % 11.5-14.5 SC [facility] ([facility]) Mean Corpuscular Volume 100.2 fl 80.0-96.0 [facility] ([facility]) Mean Corpuscular HGB Conc 30.8 g/dL 32.0-36.5 [facility] NT ([facility]) Platelet Count, Automated 183 10 150-450 [facility] ([facility]) Neutrophils % 82.2 % 36.0-66.0 [facility] ([facility]) Lymph % 9.1 % 24.0-44.0 [facility]) Baso % 0.4 % 0.0-1.0 [facility]) Anderson % 6.6 % 0.0-5.0 [facility]) Eos % 1.3 % 0.0-3.0 [facility]) Neutrophils # 10.7 10 1.5-8.5 [facility] ([facility]) Immature Granulocyte % 0.4 % 0-3.0 [facility] ([facility]) Lymph # 1.2 10 1.5-5.0 [facility]) Nucleated Red Blood Cell % 0.0 % 0-0 [facility] ([facility]) Baso # 0.1 10 0.0-0.2 [facility]) Anderson # 0.9 10 0.0-0.8 [facility]) Eos # 0.2 10 0.0-0.5 [facility]) Procedure Vital Signs ID Date Data Source UNK Name Value Range Interpretation Code Description Data Source(s) Body mass index (BMI) [Ratio] 39.7 kg/m2 39.7 k g/m2 [facility] ([facility]) Body weight 190.00 [lb_av] 190.00 [lb_av] [facility] T ([facility]) Body height 58 [in_i] 58 [in_i] [facility] ([facility]) 4'10" Heart rate 82 /min 82 /min [facility] ([facility]) Diastolic blood pressure 70 mm[Hg] 70 mm[Hg] [facility] ([facility]) Systolic blood pressure 120 mm[Hg] 120 mm[Hg] M EDENT ([facility]) Body mass index (BMI) [Ratio] 39.1 kg/m2 39.1 k g/m2 [facility] ([facility]) Oxygen saturation in Arterial blood by Pulse oximetry 96 % 96 % [facility] ([facility]) With O2 Body weight 187.00 [lb_av] 187.00 [lb_av] [facility] T ([facility]) Body height 58 [in_i] 58 [in_i] [facility] ([facility]) 4'10" Heart rate 89 /min 89 /min [facility] ([facility]) Diastolic blood pressure 70 mm[Hg] 70 mm[Hg] [facility] ([facility]) Systolic blood pressure 130 mm[Hg] 130 mm[Hg] Rudi LEE ([facility])
[2020-10-18] MEDS ORDERED: FUROSEMIDE 40MG/4ML VIAL (J1940) IV ONE (02:45)
[2020-10-18] MEDS ORDERED: ALBUTEROL SULFATE 2.5 MG/0.5 ML INH NEB SOLN NEB ONE (03:00)
[2020-10-18] MEDS ORDERED: HYDR25TAB PO (03:03)
[2020-10-18] MEDS ORDERED: POTA10TA17 PO (03:03)
--- OUTSIDE RECORDS SUMMARY | 2020-10-18 03:06 | CCD ---
Author Author [facility] Organization [facility] Address Unknown Phone Unavailable Care Team Providers Care Db2 Dba Name Role Phone Delroy, M Della RPA [...] MD Unavailable Unavailable RubyRudi MD Unavailable Unavailable RubyRuid MD Unavailable Unavailable RubyRudi MD Unavailable Unavailable [...] Unavailable Rudi Beltran MD Unavailable Unavailable Rudi Beltarn MD Unavailable Unavailable Rudi Beltran MD Unavailable [...] is protected by Article 27-F of the [facility] Public Health law. If you continue you may have access to information: Regarding HIV / AIDS; Provided by facilities licensed or operated by the [facility] Office of Mental Health; or Provided by the [facility] Office for People With Developmental Disabilities. If such information is present, then the following [facility] mandated warning applies: This information has [...] law may result in a fine or long term sentence or both. A general authorization for the release of medical or other information is NOT sufficient authorization for further disc losure. Family History Family Member Name Family Member Gender Family Member Status Date o f Status Description Data Source(s) Unknown Unknown Problem [facility] (Elian luna [employer]) Unknown Female Problem [facility] ([facility]) Unknown Male Problem [facility] ([facility]) Unknown Female Problem [facility] ([facility]) Encounters Encounter Providers Location Date Indications Data Source(s ) Outpatient Attender: DELFIN Cary 1 03:20:00 PM EDT [facility] ([facility] ) Outpatient Attender: DELFIN Cary 0 06/08/2020 10:40:00 AM EDT [facility] ([facility] ) Outpatient Attender: Della Potts [facility] 02/25/2020 07:37:44 PM EDT [facility] Outpatient Attender: DELFIN Cary 0 02/24/2020 02:40:00 PM EDT [facility] ([facility] ) Outpatient Attender: Shanta Cary 11:45:00 AM EDT [facility] ([facility] ) Medications Medication Brand Name Start [...] 07/17/2020 12:00:00 AM EDT ORAL active [facility] ([facility]) Potassium Chloride 20 MEQ Extended Release Oral Tablet Potassium Chloride [facility] 06/23/2020 12:00:00 AM EDT ORAL active [facility] ([facility]) 20 mg 06/19/2020 12:00:00 AM EDT [...] 06/12/2020 12:00:00 AM EDT ORAL completed [facility] ([facility]) tiotropium 0.018 MG/ACTUAT Inhalant Powder [Spiriva] Spiriva Handihaler 06/08/2020 12:00:00 AM EDT active [facility] ([facility]) Furosemide 20 MG Oral Tablet Furosemide 06/08/2020 12:00:00 AM EDT ORAL active [facility] ([facility]) 20 mg 06/08/2020 12:00:00 [...] 02/24/2020 12:00:00 AM EDT ORAL active [facility] ([facility]) 20 mg 02/24/2020 12:00:00 AM EDT tablet 8 TAKE TWO TABLETS BY MOUTH EVERY DAY TAKE TWO TABLETS BY MOUTH EVERY DAY SOLD: 02/24/2020 [facility] Amoxicillin 500 MG Oral Capsule Amoxicillin 02/21/2020 12:00:00 AM EDT active [facility] ([facility]) 500 mg 02/21/2020 12:00:00 AM [...] type / Coverage type Policy ID Covered constitution party ID Covered constitution party's relationship to zhang Policy Zhang Plan Information [facility] [id number] SP [id number] MEDICARE [id number] SP [id number] UMR O [id number] S [id number] MEDICARE C [id number] S [id number] [place] S [id number] S [id number] Medicare P [id number] S [id number] A [place]/Umr (Old) Medigap Part B [id number] Self [id number] Medicare [place] Govt Servic Medicare Primary [id number] Self [id number] Umr (New [place]) Medigap Part B [id number] Self [id number] [place] Primary [id number] Self [id number] Umr Medigap Part B [id number] Self [id number] [facility] [id number] SP [id number] [place] Primary [id number] Self [id number] [place] (Old) Medigap Part B [id number] Self [id number] Medicare [place] Govt Servic Medicare Primary [id number] Self [id number] [place] (Old) Medigap Part B [id number] Self [id number] Medicare [place] Govt Servic Medicare Primary [id number] Self [id number] [place] (Old) Medigap Part B [id number] Self [id number] Medicare [place] Govt Servic Medicare Primary [id number] Self [id number] POMCO [id number] SP [id number] MEDICARE [id number] SP [id number] A [place] (Old) Medigap Part B [id number] Self [id number] Medicare [place] Govt Servic Medicare Primary [id number] Self [id number] [place] Ppo Medigap Part B [id number] Self [id number] Medicare [place] Govt Servic Medicare Primary [id number] Self [id number] [place] Ppo Medigap Part B [id number] Self [id number] Medicare [place] Govt Servic Medicare Primary [id number] Self [id number] [place] Ppo Medigap Part B [id number] Self [id number] Medicare [place] Govt Servic Medicare Primary [id number] Self [id number] [place] Ppo Medigap Part B [id number] Self [id number] Medicare [place] Govt Servic Medicare Primary [id number] Self [id number] [place] Ppo Medigap Part B [id number] Self [id number] Medicare [place] Govt Servic Medicare Primary [id number] Self [id number] [place] Ppo Medigap Part B [id number] Self [id number] Medicare [place] Govt Servic Medicare Primary [id number] Self [id number] [place]OM[place] PPO O [id number] S [id number] MEDICARE C [id number] S [id number] A [facility] C [id number] S [id number] [place] Ppo Medigap Part B [id number] Self [id number] Medicare [place] Govt Servic Medicare Primary [id number] Self [id number] [place] (pr) Medigap Part B Self [place] Primary Self [place] Ppo Medigap Part B 335 Self 335 Medicare [place] Govt Servic Medicare Primary Self [place] Medigap Part B 335 Self 335 [place]/[facility] Medicare Primary Self POMCO [id number] SP [id number] POMCO [id number] SP [id number] POM[place] PPO S [id number] S [id number] POM[place] [id number] SP [id number] A [id number] Results ID Date Data Source [id number] 07/19/2020 10:17:00 AM EST [facility] ([facility]) Name Value Range Interpretation Code Description Data Meseret rce(s) Supporting Document(s) Bedside Glucose 105 mg/dL 83-110 [facility] ([facility]) ID Date Data Source [id number] 07/19/2020 09:49:00 AM EST [facility] ([facility]) Name Value Range Interpretation Code Description Data Meseret rce(s) Supporting Document(s) Magnesium [Moles/volume] in Serum or Plasma 1.6 mg/dL 1.8-2.4 [facility] ([facility]) Thyrotropin [Units/volume] in Serum or Plasma by Detec tion limit <= 0.05 mIU/L 1.440 uIU/ML 0.358-3.740 [facility] ([facility] ) Thyroxine (T4) free [Mass/volume] in Serum or Plasma 1.05 ng/dL 0.76- 1.46 [facility] ([facility]) ID Date Data Source [id number] 07/19/2020 09:49:00 AM EST [facility] ([facility]) Name Value Range Interpretation Code Description Data Meseret rce(s) Supporting Document(s) Blood Urea Nitrogen 21 mg/dL 7-18 [facility] ([facility]) Glucose, Fasting 131 mg/dL 70-100 [facility] ([facility]) Glomerular Filtration Rate 55.9 [facility] ([facility]) <content>Units are mL/min/1.73 m2</content>
<content></content>
<content>Chronic Kidney Disease Staging per NKF:</content>
<content></content>
<content>Stage I & II GFR >=60 Normal to Mildly Decreased</content>
<content>Stage III GFR 30- 59 Moderately Decreased</content>
<content>Stage IV GFR 15-29 Severely Decreased</content>
<content>Stage V GFR <15 Very Little GFR Left</content>
<content>ESRD GFR <15 on HAMMER REPAIRER</content>
<content></content> Sodium Level 141 meq/L 136-145 [facility] ([facility]) Creatinine For GFR 1.02 mg/dL 0.55-1.30 [facility] ([facility]) Potassium Serum 3.6 meq/L 3.5-5.1 [facility] ([facility]) Chloride Level 101 meq/L 98-107 [facility] ([facility]) Carbon Dioxide Level 38 meq/L 21-32 [facility] ([facility]) Anion Gap 2 meq/L 8-16 [facility] Calcium Level 8.9 mg/dL 8.8-10.2 [facility] ([facility]) ID Date Data Source [id number] 07/19/2020 09:49:00 AM EST [facility] ([facility]) Name Value Range Interpretation Code Description Data Meseret rce(s) Supporting Document(s) MB/CK Relative Index 2.63 [facility] ([facility]) <content>DIAGNOSIS CRITERIA</content>
<content>MMB ng/ml Relative Index (RI)</content>
<content>NON-AMI < or = 5 N/A</content>
<content>MEYER ZONE > 5 < or = 4</content>
<content>AMI > 5 > 4</content>
<content></content> CK-MB Value Mass Laboratory test result [facility] ([facility]) CPK Creatine Phosphokinase 38 U/L 26-192 [facility] ([facility]) Troponin I Laboratory test result [facility] ([facility]) <content>Troponin I Reference Interval f or Siemens [place] LOCI:</content>
<content></content>
<content>99th Percentile= 0.00-0.045 ng/ml</content>
<content></content>
<content>Risk Stratification:</content>
<content><= 0.10 ng/ml Decreased Risk for Adverse Clinical</content>
<content>Events.</content>
<content>0.10-1.50 ng/ml Increased Risk for Adverse Clinical</content>
<content>Events. Evaluation of additional</content>
<content>criterion and/or repeat testing in 2-6</content>
<content>hours is suggested to rule out myocardial</content>
<content>damage.</content>
<content>>= 1.50 ng/ml Indicative of Myocardial Injury.</content>
<content></content> ID Date Data Source [id number] 07/19/2020 09:49:00 AM EST [facility] ([facility]) Name Value Range Interpretation Code Description Data Meseret rce(s) Supporting Document(s) aPTT in Blood by Coagulation assay 43.2 s 24.2-38.5 [facility] ID Date Data Source [id number] 07/19/2020 09:49:00 AM EST [facility] ([facility]) Name Value Range Interpretation Code Description Data Meseret rce(s) Supporting Document(s) Inr 1.32 [facility] ([facility] THERAPUTIC HUMAN INR VALUES INDICATIONS NORMAL RANGES PROPHYLAXIS/TREATMENT OF: VENOUS THROMBOSIS 2.0-3.0 PULMONARY EMBOLISM 2.0-3.0 PREVENTION OF SYSTEMIC EMBOLISM FROM: TISSUE HEART VALVES 2.0-3.0 ACUTE MYOCARDIAL INFARCTION 2.0-3.0 VALVULAR HEART DISEASE 2.0-3.0 ATRIAL FIBRILLATION 2.0-3.0 MECHANICAL VALVES(HIGH RISK) 2.5-3.5 RECURRENT MYOCARDIAL INFARCTION 2.5-3.5 Prothrombin Time 16.7 s 12.5-14.3 [facility] ([facility]) ID Date Data Source [id number] 07/19/2020 09:49:00 AM EST [facility] ([facility]) Name Value Range Interpretation Code Description Data Meseret rce(s) Supporting Document(s) White Blood Count 10.5 10 4.0-10.0 [facility] ([facility]) Hematocrit 43.2 % 36.0-47.0 [facility] Hemoglobin 13.3 g/dL 12.0-15.5 [facility] Red Blood Count 4.36 10 4.00-5.40 [facility] ([facility]) Mean Corpuscular Volume 99.1 fl 80.0-96.0 [facility] ([facility]) Mean Corpuscular HGB Conc 30.8 g/dL 32.0-36.5 MEDE NT ([facility]) Mean Corpuscular Hemoglobin 30.5 pg 27.0-33.0 ME DENT ([facility]) Red Cell Distribution Width 13.2 % 11.5-14.5 [facility] ([facility]) Platelet Count, Automated 207 10 150-450 [facility] NT ([facility]) Neutrophils % 74.5 % 36.0-66.0 [facility] ([facility]) [place] % 5.8 % 0.0-5.0 [facility] Lymph % 15.8 % 24.0-44.0 [facility] Eos % 3.0 % 0.0-3.0 [facility] Nucleated Red Blood Cell % 0.0 % 0-0 [facility] ([facility]) Baso % 0.5 % 0.0-1.0 [facility] Immature Granulocyte % 0.4 % 0-3.0 [facility] ([facility]) [place] # 0.6 10 0.0-0.8 [facility] Lymph # 1.7 10 1.5-5.0 [facility] Neutrophils # 7.8 10 1.5-8.5 [facility] ([facility]) Baso # 0.1 10 0.0-0.2 [facility] Eos # 0.3 10 0.0-0.5 [facility] ID Date Data Source [id number] 06/22/2020 03:47:00 PM EDT [facility] ([facility]) Name Value Range Interpretation Code Description Data Meseret rce(s) Supporting Document(s) Urea nitrogen [Mass/volume] in Serum or Plasma 26 mg/dL 7-18 [facility] ([facility]) Creatinine 1.1 mg/dL 0.6-1.3 [facility] ([facility]) Glucose [Mass/volume] in Serum or Plasma 131 mg/dL 74-99 [facility] ([facility]) 100-125 mg/dL PRE-DIABETES/FASTING >126 mg/dL DIABETES/FASTING Sodium [Moles/volume] in Serum or Plasma 145 meq/L 136-145 [facility] ([facility]) Potassium [Moles/volume] in Serum or Plasma 3.1 meq/L 3.5-5.1 [facility] ([facility]) Chloride [Moles/volume] in Serum or Plasma 102 meq/L 98-107 [facility] ([facility]) Calcium [Mass/volume] in Serum or Plasma 8.8 mg/dL 8.5-10.1 [facility] ([facility]) Glomerular filtration rate/1.73 sq M pre dicted among non-blacks [Volume Rate/Area] in Serum or Plasma by Creatinine-based formula (MDRD) 48 mL/min [facility] ([facility]) Carbon dioxide, total [Moles/volume] in Serum or Plasma 36 meq/L 21 -32 [facility] ([facility]) Glomerular filtration rate/1.73 sq M pre dicted among blacks [Volume Rate/Area] in Serum or Plasma by Creatinine-based formula (MDRD) 58 mL/min [facility] ([facility]) <content>CHRONIC KIDNEY DISEASE STAGING PER NKF</content>
<content></content>
<content>STAGE I & II GFR >= 60 NORMAL TO MILDLY DECREASED</content>
<content>STAGE III GFR 30-59 MODERATELY DECREASED</content>
<content>STAGE IV GFR 15-29 SEVERELY DECREASED</content>
<content>STAGE V GFR <15 VERY LITTLE GFR LEFT</content>
<content>ESRD GFR <15 ON HAMMER REPAIRER</content>
<content></content> ID Date Data Source [id number] 06/08/2020 11:11:00 AM EDT [facility] ([facility]) Name Value Range Interpretation Code Description Data Meseret rce(s) Supporting Document(s) Glucose [Mass/volume] in Serum or Plasma 110 mg/dL 74-99 [facility] ([facility]) 100-125 mg/dL PRE-DIABETES/FASTING >126 mg/dL DIABETES/FASTING Sodium [Moles/volume] in Serum or Plasma 141 meq/L 136-145 [facility] ([facility]) Creatinine 0.9 mg/dL 0.6-1.3 [facility] ([facility]) Urea nitrogen [Mass/volume] in Serum or Plasma 18 mg/dL 7-18 [facility] ([facility]) Carbon dioxide, total [Moles/volume] in Serum or Plasma 35 meq/L 21 -32 [facility] ([facility]) Potassium [Moles/volume] in Serum or Plasma 3.6 meq/L 3.5-5.1 [facility] ([facility]) Chloride [Moles/volume] in Serum or Plasma 101 meq/L 98-107 [facility] ([facility]) Calcium [Mass/volume] in Serum or Plasma 9.0 mg/dL 8.5-10.1 [facility] ([facility]) Glomerular filtration rate/1.73 sq M pre dicted among non-blacks [Volume Rate/Area] in Serum or Plasma by Creatinine-based formula (MDRD) Laboratory test result [facility] Glomerular filtration rate/1.73 sq M pre dicted among blacks [Volume Rate/Area] in Serum or Plasma by Creatinine-based formula (MDRD) Laboratory test result [facility] <content>CHRONIC KIDNEY DISEASE STAGING PER NKF</content>
<content></content>
<content>STAGE I & II GFR >= 60 NORMAL TO MILDLY DECREASED</content>
<content>STAGE III GFR 30-59 MODERATELY DECREASED</content>
<content>STAGE IV GFR 15-29 SEVERELY DECREASED</content>
<content>STAGE V GFR <15 VERY LITTLE GFR LEFT</content>
<content>ESRD GFR <15 ON HAMMER REPAIRER</content>
<content></content> ID Date Data Source [id number] 06/08/2020 11:11:00 AM EDT [facility] ([facility]) Name Value Range Interpretation Code Description Data Meseret rce(s) Supporting Document(s) Natriuretic peptide B [Mass/volume] in Serum or Plasma 189.0 pg/mL 0.0-100.0 [facility] ([facility]) ID Date Data Source [id number] 05/27/2020 07:44:00 AM EDT [facility] ([facility]) Name Value Range Interpretation Code Description Data Meseret rce(s) Supporting Document(s) ABG Partial Pressure Co2 56.9 mmHg 35.0-45.0 MEDEN T ([facility]) ABG pH (Arterial) 7.402 units 7.350-7.450 [facility] ( [facility]) ABG Total Co2 36.4 meq/L 23.0-31.0 [facility] ([facility]) ABG Partial Pressure O2 131.8 mmHg 75.0-100.0 [facility] NT ([facility]) ABG Hco3 34.6 meq/L 22.0-26.0 [facility] ([facility] ABG O2 Saturation 98.9 % 95.0-99.0 [facility] ([facility]) ABG Standard Hco3 31.8 meq/L 22.0-26.0 [facility] ([facility]) ABG Base Excess 7.9 [facility] ([facility]) ID Date Data Source [id number] 05/27/2020 07:42:00 AM EDT [facility] ([facility]) Name Value Range Interpretation Code Description Data Meseret rce(s) Supporting Document(s) White Blood Count 11.7 10 4.0-10.0 [facility] ([facility]) Red Blood Count 4.31 10 4.00-5.40 [facility] ([facility]) Mean Corpuscular Volume 101.4 fl 80.0-96.0 [facility] ([facility]) Hemoglobin 13.5 g/dL 12.0-15.5 [facility] Mean Corpuscular Hemoglobin 31.3 pg 27.0-33.0 ME [facility] ([facility]) Hematocrit 43.7 % 36.0-47.0 [facility] Platelet Count, Automated 181 10 150-450 [facility] NT ([facility]) Red Cell Distribution Width 13.4 % 11.5-14.5 [facility] ([facility]) Mean Corpuscular HGB Conc 30.9 g/dL 32.0-36.5 [facility] NT ([facility]) Neutrophils % 83.4 % 36.0-66.0 [facility] ([facility]) Lymph % 9.5 % 24.0-44.0 [facility] [place] % 4.9 % 0.0-5.0 [facility] Eos % 1.3 % 0.0-3.0 [facility] Nucleated Red Blood Cell % 0.0 % 0-0 [facility] ([facility]) Immature Granulocyte % 0.5 % 0-3.0 [facility] ([facility]) Baso % 0.4 % 0.0-1.0 [facility] Lymph # 1.1 10 1.5-5.0 [facility] Neutrophils # 9.8 10 1.5-8.5 [facility] ([facility]) [place] # 0.6 10 0.0-0.8 [facility] Baso # 0.1 10 0.0-0.2 [facility] Eos # 0.2 10 0.0-0.5 [facility] ID Date Data Source [id number] 05/27/2020 07:42:00 AM EDT [facility] ([facility]) Name Value Range Interpretation Code Description Data Meseret rce(s) Supporting Document(s) Prothrombin Time 16.2 s 11.8-14.0 [facility] ([facility]) Inr 1.28 [facility] THERAPUTIC HUMAN INR VALUES INDICATIONS NORMAL RANGES PROPHYLAXIS/TREATMENT OF: VENOUS THROMBOSIS 2.0-3.0 PULMONARY EMBOLISM 2.0-3.0 PREVENTION OF SYSTEMIC EMBOLISM FROM: TISSUE HEART VALVES 2.0-3.0 ACUTE MYOCARDIAL INFARCTION 2.0-3.0 VALVULAR HEART DISEASE 2.0-3.0 ATRIAL FIBRILLATION 2.0-3.0 MECHANICAL VALVES(HIGH RISK) 2.5-3.5 RECURRENT MYOCARDIAL INFARCTION 2.5-3.5 ID Date Data Source [id number] 05/27/2020 07:42:00 AM EDT [facility] ([facility]) Name Value Range Interpretation Code Description Data Meseret rce(s) Supporting Document(s) CPK Creatine Phosphokinase 32 U/L 26-192 [facility] ([facility]) CK-MB Value Mass 1.1 ng/mL [facility] ([facility]) Troponin I Laboratory test result [facility] <content>Troponin I Reference Interval f or Siemens [place] LOCI:</content>
<content></content>
<content>99th Percentile= 0.00-0.045 ng/ml</content>
<content></content>
<content>Risk Stratification:</content>
<content><= 0.10 ng/ml Decreased Risk for Adverse Clinical</content>
<content>Events.</content>
<content>0.10-1.50 ng/ml Increased Risk for Adverse Clinical</content>
<content>Events. Evaluation of additional</content>
<content>criterion and/or repeat testing in 2-6</content>
<content>hours is suggested to rule out myocardial</content>
<content>damage.</content>
<content>>= 1.50 ng/ml Indicative of Myocardial Injury.</content>
<content></content> MB/CK Relative Index 3.44 [facility] ([facility]) <content>DIAGNOSIS CRITERIA</content>
<content>MMB ng/ml Relative Index (RI)</content>
<content>NON-AMI < or = 5 N/A</content>
<content>MEYER ZONE > 5 < or = 4</content>
<content>AMI > 5 > 4</content>
<content></content> ID Date Data Source [id number] 05/27/2020 07:42:00 AM EDT [facility] ([facility]) Name Value Range Interpretation Code Description Data Meseret rce(s) Supporting Document(s) Alt/SGPT 11 U/L 12-78 [facility] [place] Ast/Sgot 10 U/L 7-37 [facility] ([facility]) Alkaline Phosphatase 79 U/L 45-117 [facility] ([facility]) Bilirubin,Total 1.1 mg/dL 0.2-1.0 [facility] ([facility]) Total Protein 6.5 GM/DL 6.4-8.2 [facility] ([facility]) Bilirubin,Direct 0.4 mg/dL 0.0-0.2 [facility] ([facility]) Albumin/Globulin Ratio 1.0 1.2-2.2 [facility] ([facility]) Albumin 3.3 GM/DL 3.2-5.2 [facility] ([place] [facility]) ID Date Data Source [id number] 05/27/2020 07:42:00 AM EDT [facility] ([facility]) Name Value Range Interpretation Code Description Data Meseret rce(s) Supporting Document(s) Blood Urea Nitrogen 15 mg/dL 7-18 [facility] ([facility]) Creatinine For GFR 0.69 mg/dL 0.55-1.30 [facility] ([facility]) Glucose, Fasting 118 mg/dL 70-100 [facility] ([facility]) Glomerular Filtration Rate Laboratory test result [facility] <content>Units are mL/min/1.73 m2</content>
<content></content>
<content>Chronic Kidney Disease Staging per NKF:</content>
<content></content>
<content>Stage I & II GFR >=60 Normal to Mildly Decreased</content>
<content>Stage III GFR 30- 59 Moderately Decreased</content>
<content>Stage IV GFR 15-29 Severely Decreased</content>
<content>Stage V GFR <15 Very Little GFR Left</content>
<content>ESRD GFR <15 on HAMMER REPAIRER</content>
<content></content> Sodium Level 142 meq/L 136-145 [facility] ([facility]) Potassium Serum 3.8 meq/L 3.5-5.1 [facility] ([facility]) Calcium Level 9.0 mg/dL 8.8-10.2 [facility] ([facility]) Carbon Dioxide Level 42 meq/L 21-32 [facility] Chloride Level 98 meq/L 98-107 [facility] ([facility]) Anion Gap 2 meq/L 8-16 [facility] ([facility] [place] ID Date Data Source [id number] 05/27/2020 07:42:00 AM EDT [facility] ([facility]) Name Value Range Interpretation Code Description Data Meseret rce(s) Supporting Document(s) Natriuretic peptide.B prohormone N-Terminal [Mass/volu me] in Serum or Plasma 2410 pg/mL [facility] ([facility] ) ID Date Data Source [id number] 05/27/2020 07:42:00 AM EDT [facility] ([facility]) Name Value Range Interpretation Code Description Data Meseret rce(s) Supporting Document(s) Respiratory Panel Laboratory test result [facility] ([facility]) This respiratory PCR panel detects Influ [...] - SARS-CoV-2 (COVID19) ID Date Data Source [id number] 02/23/2020 04:13:00 PM EDT [facility] ([facility]) Name Value Range Interpretation Code Description Data Meseret rce(s) Supporting Document(s) C reactive protein [Mass/volume] in Serum or Plasma by High sensitivity method 4.54 mg/dL 0.00-0.30 [facility] ([facility] ) Urate [Mass/volume] in Serum or Plasma 7.8 mg/dL 2.6-6.0 [facility] ([facility]) ID Date Data Source [id number] 02/23/2020 04:13:00 PM EDT [facility] ([facility]) Name Value Range Interpretation Code Description Data Meseret rce(s) Supporting Document(s) Creatinine For GFR 0.62 mg/dL 0.55-1.30 [facility] ([facility]) Glucose, Fasting 103 mg/dL 70-100 [facility] ([facility]) Blood Urea Nitrogen 17 mg/dL 7-18 [facility] ([facility]) Glomerular Filtration Rate Laboratory test result [facility] ([facility]) <content>Units are mL/min/1.73 m2</content>
<content></content>
<content>Chronic Kidney Disease Staging per NKF:</content>
<content></content>
<content>Stage I & II GFR >=60 Normal to Mildly Decreased</content>
<content>Stage III GFR 30- 59 Moderately Decreased</content>
<content>Stage IV GFR 15-29 Severely Decreased</content>
<content>Stage V GFR <15 Very Little GFR Left</content>
<content>ESRD GFR <15 on HAMMER REPAIRER</content>
<content></content> Chloride Level 101 meq/L 98-107 [facility] ([facility]) Sodium Level 144 meq/L 136-145 [facility] ([facility]) Potassium Serum 3.8 meq/L 3.5-5.1 [facility] ([facility]) Anion Gap 4 meq/L 8-16 [facility] Calcium Level 8.2 mg/dL 8.8-10.2 [facility] ([facility]) Carbon Dioxide Level 39 meq/L 21-32 [facility] ([facility]) ID Date Data Source [id number] 02/23/2020 04:13:00 PM EDT [facility] ([facility]) Name Value Range Interpretation Code Description Data Meseret rce(s) Supporting Document(s) Erythrocyte sedimentation rate by Westergren method 25 mm/hr 0-30 [facility] ([facility]) ID Date Data Source [id number] 02/23/2020 04:13:00 PM EDT [facility] ([facility]) Name Value Range Interpretation Code Description Data Meseret rce(s) Supporting Document(s) White Blood Count 13.0 10 4.0-10.0 [facility] ([facility]) Hemoglobin 13.6 g/dL 12.0-15.5 [facility] ([facility]) Red Blood Count 4.41 10 4.00-5.40 [facility] ([facility]) Hematocrit 44.2 % 36.0-47.0 [facility] ([facility]) Mean Corpuscular Hemoglobin 30.8 pg 27.0-33.0 [place] [facility] ([facility]) Red Cell Distribution Width 13.2 % 11.5-14.5 [place] [facility] ([facility]) Mean Corpuscular Volume 100.2 fl 80.0-96.0 [facility] ([facility]) Mean Corpuscular HGB Conc 30.8 g/dL 32.0-36.5 [facility] ([facility]) Platelet Count, Automated 183 10 150-450 [facility] ([facility]) Neutrophils % 82.2 % 36.0-66.0 [facility] ([facility]) Lymph % 9.1 % 24.0-44.0 [facility] Baso % 0.4 % 0.0-1.0 [facility] [place] % 6.6 % 0.0-5.0 [facility] Eos % 1.3 % 0.0-3.0 [facility] ([facility]) Neutrophils # 10.7 10 1.5-8.5 [facility] ([facility]) Immature Granulocyte % 0.4 % 0-3.0 [facility] ([facility]) Lymph # 1.2 10 1.5-5.0 [facility] ([facility]) Nucleated Red Blood Cell % 0.0 % 0-0 [facility] ([facility]) Baso # 0.1 10 0.0-0.2 [facility] ([facility]) [place] # 0.9 10 0.0-0.8 [facility] ([facility]) Eos # 0.2 10 0.0-0.5 [facility] ([facility]) Procedure Vital Signs ID Date Data Source UNK Name Value Range Interpretation Code Description Data Source(s) Body mass index (BMI) [Ratio] 39.7 kg/m2 39.7 k g/m2 [facility] ([facility]) Body weight 190.00 [lb_av] 190.00 [lb_av] [facility] ([facility]) Body height 58 [in_i] 58 [in_i] [facility] ([facility]) 4'10" Heart rate 82 /min 82 /min [facility] ([facility]) Diastolic blood pressure 70 mm[Hg] 70 mm[Hg] [facility] ([facility]) Systolic blood pressure 120 mm[Hg] 120 mm[Hg] M [facility] ([facility]) Body mass index (BMI) [Ratio] 39.1 kg/m2 39.1 k g/m2 [facility] ([facility]) Oxygen saturation in Arterial blood by Pulse oximetry 96 % 96 % [facility] ([facility]) With O2 Body weight 187.00 [lb_av] 187.00 [lb_av] [facility] ([facility]) Body height 58 [in_i] 58 [in_i] [facility] ([facility]) 4'10" Heart rate 89 /min 89 /min [facility] ([facility]) Diastolic blood pressure 70 mm[Hg] 70 mm[Hg] [facility] ([facility]) Systolic blood pressure 130 mm[Hg] 130 mm[Hg] Rudi LEE ([facility])
[2020-10-18 03:28] LABS: VENOUS BASE EXCESS 1.5 (-2.0-2.0); VENOUS HCO3 32.3 MEQ/L (23.0-27.0); VENOUS O2 SATURATION 92.2 % (60.0-80.0); VENOUS PARTIAL PRESSURE CO2 86.8 mmHg (38.0-50.0); VENOUS PARTIAL PRESSURE O2 69.8 mmHg (30.0-50.0); VENOUS PH 7.189 UNITS (7.330-7.430); VENOUS STANDARD HCO3 25.6 MEQ/L
[2020-10-18] MEDS ORDERED: ALBUTEROL 90 MCG/ACT 8GM HFA INHALER INH PRN (03:30)
[2020-10-18] MEDS ORDERED: ACETAMINOPHEN TAB 650MG DOSE (2X325MG) PO PRN (03:30)
[2020-10-18] MEDS ORDERED: IPRATROPIUM 0.5MG/ALBUTEROL 2.5MG INH SOL UD 3ML (DUONEB) NEB PRN ×2 (03:30→03:45)
[2020-10-18 04:14] LABS: MAGNESIUM LEVEL 1.8 MG/DL (1.8-2.4)
--- NOTE | 2020-10-18 04:54 | HPEPDOC ---
[facility] Medical History & Physical Date of Admission Oct 18, 2020 Date of Service: Oct 18, 2020 Attending Physician: ISADORA FENG MD History and Physical CHIEF COMPLAINT: Shortness of breath HISTORY OF PRESENT ILLNESS:. Patient is a 75-year-old female with past medical history again for chronic hypoxic hypercarbic respiratory failure on 2 L nasal cannula secondary to COPD, nonvalvular atrial fibrillation, congestive heart failure with preserved ejection fraction. Last echocardiogram completed in [facility]2019, pulmonary hypertension, hypertension and morbid obesity who presented to the [facility] emergency department with complaint of shortness of breath for 2 days duration. Patient stated that about 1-2 days ago she felt more short of breath. . She stated that her shortness of breath was present both with lying flat and with sitting up. She admits to a chronic cough, however, denies any increase in sputum production. She denies any chest pain or palpitations. She denies any pain on deep inspiration. Additionally, the patient states that she has chronic lower extremity swelling. On presentation to the emergency department the patient was vitally stable. She was hypoxic and was placed on 3 L nasal cannula. Laboratory studies showed a very mild leukocytosis. She had an elevated BNP. Chest x-ray obtained not demonstrate any infiltrates. He does have cardiomegaly and prominent vascular markings, which are unchanged from prior x-rays. She was given 40 mg IV Lasix an y zinc sulfate and Solu-Medrol in the ED. Hospitalist service was consultative and the patient was admitted for further evaluation management PAST MEDICAL HISTORY: 1., Nonvalvular age of defibrillation. Echocardiogram completed on 06/07/2020 2. Pulmonary Hypertension with pulmonary artery pressure of 40-50, bilateral atrial enlargement 3. Chronic obstructive pulmonary disease 4. Chronic hypoxemic hypercarbic respiratory failure on 2 L nasal cannula at baseline 5. Hypertension 6. Morbid obesity 7. Generalized anxiety disorder 8. Vitamin D deficiency 9. Allergic rhinitis 10. Prediabetes PAST SURGICAL HISTORY: 1. Left ankle fracture in 1975 2. Left hand fracture 1995. 3. Umbilical herniography. 4. Appendectomy 5. Bilateral carpal tunnel release 6. Benign neck tumor excision 2 7. Bilateral tubal ligation SOCIAL HISTORY: Patient lives at home with her . 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 She has 4 sons. She quit smoking approximately 2 years ago. However, every once in a while will smoke a few cigarettes. When she was smoking she smoked one pack per day. Denies any alcohol use. Denies any IV or illicit drug use FAMILY HISTORY: Father with a history of hypertension, kidney failure. Her mother had lung cancer ALLERGIES: Please see below. REVIEW OF SYSTEMS: CONSTITUTIONAL: Denies fevers, chills. Denies unintentional weight loss or weight gain. Denies night sweats. HEENT: Denies dysphagia or odynophagia. Denies change in vision. CARDIOVASCULAR:. Denies chest pain, palpitations or feelings of the heart racing. RESPIRATORY:. Admits to shortness of breath. Admits to a chronic cough. Denies any increase in sputum production. Denies any hemoptysis. Denies any pain on deep inspiration. GASTROINTESTINAL:. Denies any abdominal pain. Denies any nausea, vomiting, diarrhea or constipation. GENITOURINARY:. Denies any dysuria, increased frequency. SKIN:. Denies any rashes or lesions. MUSCULOSKELETAL: Denies any muscle weakness, although admits to deconditioned NEUROLOGICAL: Denies any changes in gait or speech from her baseline. PSYCHIATRIC:. Admits to history of anxiety. ENDOCRINE:. Denies heat intolerance or cold intolerance. Admits to diabetes/pre diabetes. HEMATOLOGIC/LYMPHATIC:. Denies any history of easy bruising or bleeding. Denies any history of DVT or pulmonary embolism. HOME MEDICATIONS: Please see below. PHYSICAL EXAMINATION: VITAL SIGNS: Temperature 97.0, pulse, 97, respiratory rate 22, blood pressure, 147/91, pulse oximetry, 96% on 2 L nasal cannula GENERAL APPEARANCE: Patient is awake, alert and oriented. She does not appear in acute distress she is lying comfortably in stretcher. She is conversive. HEENT: Atraumatic. Normocephalic. Eyes are nonicteric. Trachea is midline. Mucous membranes are pink and moist. CARDIOVASCULAR:. Normal S1, S2., Regular rate with a irregularly irregular rhythm. No clicks rubs or murmurs LUNGS: Decreased breath sounds throughout with increased expiratory phase. There is some very mild scattered wheezing. No rhonchi or rales are noted. There is no accessory muscle use. There is good respiratory effort ABDOMEN: Morbidly obese. Soft nondistended, nontender, no rebound tenderness or guarding. Normoactive bowel sounds throughout. EXTREMITIES: Trace bilateral lower extremity edema. Full and equal pulses in bilateral upper and lower extremities. NEUROLOGICAL:. No focal neurological deficits. PSYCHIATRIC: Mood and affect appear appropriate. LABORATORY DATA: See below. IMAGING: PROCEDURE INFORMATION: Exam: XR Chest, 1 View Exam date and time: 10/18/20 (1:12am) Age: 75 years old Clinical indication: Cough and dyspnea TECHNIQUE: Imaging protocol: Portable CXR Views: 1 view COMPARISON: Portable CXR of 07/19/20 FINDINGS: Comparison is made with a portable CXR done on 07/19/20. Stable cardiomegaly. No focal infiltrates. No pleural effusions. Mildly prominent vascular markings (unchanged). Large patient size. IMPRESSION: No acute findings. Stable cardiomegaly. Electronically signed by: Bridgette Hammer On 10/18/2020 01:51:03 AM MICROBIOLOGY: Please see below. ASSESSMENT: Patient is a 75-year-old female with a past medical history significant for chronic hypoxemic hypercarbic respiratory failure on 2 L nasal cannula at baseline COPD, hypertension, pulmonary hypertension and congestive heart failure with preserved ejection fraction, who presented to the [facility] emergency department with complaint of shortness of breath over the past 1-2 days. Patient's imaging was negative for any acute changes. Patient was admitted for COPD exacerbation. PLAN: 1. Shortness of breath secondary to COPD exacerbation -Patient presenting with increasing shortness of breath over the past 1-2 days. She did have some mild wheezing on exam. She denies any increase in her cough or sputum production. Patients at 2 L oxygen at baseline. Currently in e xam room. She currently has oxygen saturations of 96% on 2 L can likely titrate her down for a goal of 88 -92%. Patient may not actually need submental oxygen at least at rest. -Patient received 125 mg of Solu-Medrol in the emergency department. She was also given two Mag sulfate runs. -Will continue Solu-Medrol 40 mg IV every 12 hours -Oxygen therapy orders for titrate SPO2 to 88-92% -DuoNeb's required every 6 hours and as needed every 2 hours -Elevate head of bed. Aspiration precautions -Will hold off on antibiotics as the patient does not currently appear to have infection. She denies any increased sputum production or increase in her cough. She is not severely hypoxic. Therefore, antibiotics are not necessarily warranted. Will continue to monitor 2. Congestive heart failure with preserved ejection fraction -Patient has congestive heart failure. She had an echo completed in May 2020, which demonstrated an LVEF of the 55-60%. Additionally, she has pulmonary hypertension with pulmonary arterial pressures of 40-50. Her BNP today was elevated at 3226. Clinically the patient looks well compensated. Her elevated BNP could be secondary to pulmonary hypertension from her lung disease. She received 40 mg IV Lasix in the ER. Will hold off on further IV Lasix and reassess in the morning. -Will hold patient's home diuretics. Can likely started tomorrow. -I's and O's with fluid restriction -Daily weighs 3. Pulmonary hypertension -Patient has a history of pulmonary hypertension. Previous echocardiogram demonstrated pulmonary arterial pressures of 40-50. -Likely cause of her elevated BNP. She is on diuretics at home, currently on hold. She is received 40 mg IV Lasix in the ER 4. Atrial fibrillation -Patient has atrial fibrillation. She is currently on Eliquis twice a day for anticoagulation. Will continue her Lopressor 25 mg twice a day 5. Obstructive sleep apnea -Patient has obstructive sleep apnea. She is noncompliant with her CPAP as she states "CPAP is a scam and they put everyone on the to make money" -Her noncompliance with CPAP and uncontrolled obstructive sleep apnea is likely further injury rating to her pulmonary hypertension and diastolic dysfunction. 6. Generalized Anxiety Disorder -Continue Diazepam 7. Hypertension -Continue HCTZ and Lopressor 8. GI prophylaxis -Protonix while on steroids 9. DVT Prophylaxis -Patient is chronically anticoagulated on Eliquis Vital Signs Vital Signs Date Time Temp Pulse Resp B/P (MAP) Pulse Ox O2 Delivery O2 Flow Rate FiO2 10/18/20 03:45 92 17 161/75 (103) 98 Room Air 10/18/20 00:54 3.0 10/18/20 00:53 97.0 Laboratory Data Labs 24H Laboratory Tests 2 10/18/20 01:00: Immature Granulocyte % (Auto) 0.5, Neutrophils (%) (Auto) 81.7H, Lymphocytes (%) (Auto) 9.5L, Monocytes (%) (Auto) 6.4H, Eosinophils (%) (Auto) 1.4, Basophils (%) (Auto) 0.5, Neutrophils # (Auto) 9.0H, Lymphocytes # (Auto) 1.1L, Monocytes # (Auto) 0.7, Eosinophils # (Auto) 0.2, Basophils # (Auto) 0.1, Nucleated Red Blood Cells % (auto) 0.0, D-Dimer, Quantitative 599.21H, Anion Gap , Glomerular Filtration Rate 50.2, Calcium Level 9.1, Total Bilirubin 1.0, Direct Bilirubin 0.4H, Aspartate Amino Transf (AST/SGOT) 8, Alanine Aminotransferase (ALT/SGPT) 10L, Alkaline Phosphatase 84, Troponin I < 0.02, ST-Pgj-H-Type Natriuretic Peptide 3226H, Total Protein 6.8, Albumin 3.6, Albumin/Globulin Ratio 1.1L, Coronavirus (COVID-19)(PCR) NEGATIVE, Influenza Type A (RT-PCR) NEGATIVE, Influenza Type B (RT-PCR) NEGATIVE, Respiratory Syncytial Virus (PCR) NEGATIVE 10/18/20 03:08: Blood Gas Bicarbonate Standard 25.6, Venous Blood pH 7.189L, Venous Blood Partial Pressure CO2 86.8H, Venous Blood Partial Pressure O2 69.8H, Venous Blood Total Carbon Dioxide 35.0H, Venous Blood HCO3 32.3H, Venous Blood Oxygen Saturation 92.2H, Venous Blood Base Excess 1.5 CBC/BMP Laboratory Tests 10/18/20 01:00 Home Medications Scheduled Apixaban (Eliquis) 5 Mg Tablet, 5 MG PO BID Ascorbic Acid (Ascorbic Acid) 500 Mg Tablet, 500 MG PO DAILY Cholecalciferol (Vitamin D3) (Vitamin D3) 1,000 Unit Tablet, 2,000 UNITS PO DAILY Diazepam (Valium) 5 Mg Tab, 5 MG PO TID Furosemide (Furosemide) 20 Mg Tablet, 20 MG PO 3XW MON, WED, FRI Hydrochlorothiazide (Hydrochlorothiazide) 25 Mg Tablet, 25 MG PO DAILY Magnesium Oxide (Magnesium) 400 Mg Capsule, 400 MG PO DAILY Metoprolol Tartrate (Metoprolol Tartrate) 25 Mg Tablet, 25 MG PO BID Potassium Chloride (Potassium Chloride) 10 Meq Tab.er.prt, 10 MEQ PO DAILY Tiotropium [place] (Spiriva) 18 Mcg Cap.w.dev, 1 CAP INH DAILY Vitamin E (Vitamin E) 400 Unit Capsule, 400 UNIT PO DAILY Scheduled PRN Albuterol Sulf (Albuterol Sulfate) 2.5 Mg/3 Ml Nebu, 1 VIAL NEB Q4H PRN for SOB/WHEEZING Albuterol Sulfate (Proair Hfa) 108 Mcg/Act Aer, 2 PUFF INH QID PRN for SHORTNESS OF BREATH Oxycodone HCl/Acetaminophen (Percocet 7.5-325 mg Tablet) 1 Each Tablet, 1 TAB PO TID PRN for PAIN Allergies Coded Allergies: adhesive tape (Verified Allergy, Intermediate, RASH, 12/20/18) latex (Verified Allergy, Intermediate, RASH, 12/20/18) A-FIB/CHADSVASC A-FIB History Current/History of A-Fib/PAF?: Yes Current PO Anticoag Therapy: Yes GME ATTESTATION GME ATTESTATION My faculty preceptor for this patient encounter was physically present during the encounter and was fully available. All aspects of the patient interview, examination, medical decision making process, and medical care plan development were reviewed and approved by the faculty preceptor. The faculty preceptor is aware and concurs with the plan as stated in the body of this note and will attest to such by his/her cosignature. ATTENDING NOTE TIME OF SERVICE 417AM is a 75 yr old smoker w a hx of A. fib , pulmonary HTN, HFpEF/HTN, COPD w chronic O2 dependence (2L), pre-DM, obesity & LEANNE w/o CPAP use who presented w c/o dyspnea that is worse with lying down flat. About 2 weeks ago the dose of her Lasix was decreased. She will be admitted for dyspnea 2/2 acute HFpEF and acute COPD. We will c/w breathing treatments, lasix and monitor strict Is/Os along with her daily weights. Rest per 's H&P ABUNDIO COLLINS DO Oct 18, 2020 04:53 ISADORA FENG MD Oct 18, 2020 06:20
[2020-10-18 05:00] VITALS: BP 158/82
[2020-10-18] MEDS: IPRATROPIUM 0.5MG/ALBUTEROL 2.5MG INH SOL UD 3ML (DUONEB) NEB SCH ×3 (07:36→18:24)
[2020-10-18 07:54] LABS: HEMOGLOBIN A1c 5.7 %
[2020-10-18] MEDS ORDERED: TIOTROPIUM INHALER/CAPSULE (SPIRIVA) INH SCH (08:00)
--- NOTE | 2020-10-18 08:56 | ECGEPIP ---
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
[2020-10-18] MEDS: hydroCHLOROthiazide 25 MG TAB PO SCH ×2 (09:00→13:23)
[2020-10-18] MEDS: ASCORBIC ACID 500 MG TAB PO SCH (09:00)
[2020-10-18] MEDS: APIXABAN 5 MG TAB (ELIQUIS) PO SCH ×2 (09:00→21:18)
[2020-10-18] MEDS ORDERED: predniSONE 20 MG TAB PO SCH (09:00)
[2020-10-18] MEDS: METOPROLOL TART 25 MG TABLET PO SCH ×2 (09:00→21:19)
[2020-10-18] MEDS: MAGNESIUM OXIDE 400 MG TAB (MAG-OX) PO SCH (09:00)
[2020-10-18] MEDS: PANTOPRAZOLE 40MG VIAL (C9113 PER 1) IV SCH (09:00)
[2020-10-18] MEDS: diazePAM 5MG TABLET PO SCH ×3 (09:00→21:18)
[2020-10-18] MEDS ORDERED: FUROSEMIDE 40 MG TAB PO SCH (09:00)
[2020-10-18] MEDS: POTASSIUM CHLORIDE 10 MEQ SR TABLET PO SCH (09:00)
[2020-10-18] MEDS: methylPREDNISolone 40MG 1ML VIAL IV SCH (13:23)
[2020-10-18 14:00] VITALS: BP 154/82
[2020-10-18] MEDS: PERCOCET 5MG/325MG TAB PO PRN ×2 (17:10→23:32)
[2020-10-18] MEDS: SENNA 8.6 MG TAB (SENOKOT) PO SCH (21:18)
[2020-10-18] MEDS: DIMETHICONE 2% OINTMENT(VANICREAM) 70GM TUBE TOP SCH (21:18)
[2020-10-18 22:00] VITALS: BP 133/68
[2020-10-19] MEDS: methylPREDNISolone 40MG 1ML VIAL IV SCH (00:13)
[2020-10-19] MEDS: IPRATROPIUM 0.5MG/ALBUTEROL 2.5MG INH SOL UD 3ML (DUONEB) NEB SCH ×4 (01:20→20:53)
[2020-10-19] MEDS: PERCOCET 5MG/325MG TAB PO PRN (05:45)
[2020-10-19 06:00] VITALS: BP 115/58
[2020-10-19 07:13] LABS: HEMATOCRIT 45.7 % (36.0-47.0); HEMOGLOBIN 14.3 g/dl (12.0-15.5); MEAN CORPUSCULAR HEMOGLOBIN 31.1 pg (27.0-33.0); MEAN CORPUSCULAR HGB CONC 31.3 g/dl (32.0-36.5); MEAN CORPUSCULAR VOLUME 99.3 fl (80.0-96.0); PLATELET COUNT, AUTOMATED 194 10^3/uL (150-450); WHITE BLOOD COUNT 13.3 10^3/uL (4.0-10.0)
[2020-10-19 07:40] LABS: CALCIUM LEVEL 9.5 MG/DL (8.8-10.2); CREATININE FOR GFR 1.16 MG/DL (0.55-1.30); GLOMERULAR FILTRATION RATE 48.2 (>39); MAGNESIUM LEVEL 2.1 MG/DL (1.8-2.4); POTASSIUM SERUM 3.5 MEQ/L (3.5-5.1)
[2020-10-19 08:04] VITALS: O2SAT 92
[2020-10-19] MEDS: ASCORBIC ACID 500 MG TAB PO SCH (09:00)
[2020-10-19] MEDS ORDERED: FUROSEMIDE 20 MG TAB PO SCH (09:00)
[2020-10-19] MEDS: PANTOPRAZOLE 40MG VIAL (C9113 PER 1) IV SCH (09:00)
[2020-10-19] MEDS: diazePAM 5MG TABLET PO SCH ×3 (09:31→20:37)
[2020-10-19] MEDS: FUROSEMIDE 100MG/10ML VIAL (J1940) IV SCH (09:31)
[2020-10-19] MEDS: predniSONE 20 MG TAB PO SCH (09:32)
[2020-10-19] MEDS: MAGNESIUM OXIDE 400 MG TAB (MAG-OX) PO SCH (09:32)
[2020-10-19] MEDS: APIXABAN 5 MG TAB (ELIQUIS) PO SCH ×2 (09:32→20:38)
[2020-10-19] MEDS: POTASSIUM CHLORIDE 10 MEQ SR TABLET PO SCH (09:33)
[2020-10-19] MEDS: METOPROLOL TART 25 MG TABLET PO SCH ×2 (09:33→20:36)
[2020-10-19] MEDS: hydroCHLOROthiazide 25 MG TAB PO SCH (09:33)
[2020-10-19] MEDS: DIMETHICONE 2% OINTMENT(VANICREAM) 70GM TUBE TOP SCH ×2 (09:34→20:38)
[2020-10-19 14:00] VITALS: BP 116/62
[2020-10-19] MEDS: SENNA 8.6 MG TAB (SENOKOT) PO SCH (20:37)
--- NOTE | 2020-10-19 20:58 | IPNPDOC ---
Date Seen The patient was seen on 10/19/20. Progress Note SUBJECTIVE: On 3 L NC, incr lasix today as she did not diurese much. Decreased steroids to PO. Feels as though she is improving slowly. Denies increased chest pain, n/v/d. OBJECTIVE: PHYSICAL EXAMINATION: VITAL SIGNS: Please see below GENERAL APPEARANCE: Patient is awake, alert and oriented. comfortable in bed HEENT: Atraumatic. Normocephalic. Eyes are nonicteric. Trachea is midline. Mu cous membranes are pink and moist. NC in place CARDIOVASCULAR:. Normal S1, S2., Regular rate with a irregularly irregular rhythm. No clicks rubs or murmurs LUNGS: Decreased breath sounds throughout with increased expiratory phase. No wheezing. No rhonchi or rales are noted. There is no accessory muscle use. There is good respiratory effort ABDOMEN: Morbidly obese. Soft nondistended, nontender, no rebound tenderness or guarding. Normoactive bowel sounds throughout. EXTREMITIES: Trace bilateral lower extremity edema. Full and equal pulses in bilateral upper and lower extremities. NEUROLOGICAL:. No focal neurological deficits. PSYCHIATRIC: Mood and affect appear appropriate. LABORATORY DATA: See below. IMAGING: XR Chest, 1 View: No acute findings. Stable cardiomegaly. Echocardiogram 05/2020: EF 60-65% 1. Normal global left ventricular systolic function. Suggestively, there are features consistent with grade 1 left ventricular diastolic dysfunction. 2. Aortic valve sclerosis without stenosis or aortic regurgitation. 3. Mitral annulus calcification with a mildly enlarged left atrium and mild mitral regurgitation. 4. Mild tricuspid regurgitation (TR) with probable moderate pulmonary hypertension. 5. A small pericardial effusion was noted. No evidence of cardiac tamponade. ASSESSMENT: Patient is a 75-year-old female with a past medical history significant for chronic hypoxemic hypercarbic respiratory failure on 2 L nasal cannula at baseline COPD, hypertension, pulmonary hypertension and congestive heart failure with preserved ejection fraction, who presented to the [facility] emergency department with complaint of shortness of breath over the past 1-2 days. Patient's imaging was negative for any acute changes. Patient was admitted for COPD exacerbation. PLAN: Shortness of breath likely multifactorial to COPD exacerbation, CHF with exacerbation, noncompliance with LEANNE with pulmonary HTN -On 3 L NC, home amount is 2 L NC, little diuresis overnight -See below for treatment of individual issues Acute on chronic HFpEF with exacerbation / mod-severe PH likely 2/2 to noncompliance with CPAP, poor management of LEANNE -BNP 3226, lower ext edema, gradual SOB -last echo from above -Increased lasix to 60 mg IV daily as she did not diurese much -F/u U/o, I&O's, daily wt, low salt diet -If looks improved by tomorrow can likely discharge home to f/u with PCP. Does not have fishing worker but would recommend referral by PCP -Also is noncompliant with CPAP, personal choice. Risks of noncompliance explained to her. Acute COPD with mild exacerbation-resolved. -No wheezing, Lung sounds much improved -Decreased to PO steroids, duonebs Pulmonary hypertension likely 2/2 to uncontrolled LEANNE from noncompliance with CPAP -See above Atrial fibrillation -HR controlled -C/w BB, Eliquis BID Obstructive sleep apnea -noncompliant with cpap -F/u with PCP will need repeat sleep study as last was some time ago -Would advise to follow directions for wearing CPAP Generalized Anxiety Disorder -Stable -Continue Diazepam Hypertension -Stable -Continue Lopressor , lasix GI prophylaxis -Protonix DVT Prophylaxis -Eliquis DISPOSITION: PT/OT. Plan is discharge home when medically improved. VS, I&O, 24H, Fishbone Vital Signs/I&O Vital Signs Date Time Temp Pulse Resp B/P (MAP) Pulse Ox O2 Delivery O2 Flow Rate FiO2 10/19/20 20:36 89 121/56 10/19/20 14:00 97.6 18 91 Nasal Cannula 3.0 I&O- Last 24 Hours up to 6 AM 10/19/20 06:00 Intake Total 1040 ml Output Total 1250 ml Balance -210 ml Laboratory Data 24H LABS Laboratory Tests 2 10/19/20 06:25: Nucleated Red Blood Cells % (auto) 0.0, Anion Gap 6L, Glomerular Filtration Rate 48.2, Calcium Level 9.5, Magnesium Level 2.1 CBC/BMP Laboratory Tests 10/19/20 06:25 Current Medications Current Medications Medications (Trade) Dose Ordered Sig/Kiran Route PRN Reason Start Time Stop Time Status Last Admin Dose Admin Acetaminophen (Tylenol Tab) 650 mg Q4H PRN PO MILD PAIN OR FEVER 10/18/20 03:30 Albuterol Sulfate (Proventil, Ventolin Hfa) 2 puff QID PRN INH SHORTNESS OF BREATH 10/18/20 03:30 10/18/20 03:41 DC Albuterol/ Ipratropium (Duoneb (Ipr 0.5mg/Alb 2.5mg)) 3 ml Q2HP PRN NEB SOB/WHEEZING 10/18/20 03:45 Albuterol/ Ipratropium (Duoneb (Ipr 0.5mg/Alb 2.5mg)) 3 ml Q4HP PRN NEB SOB/WHEEZING 10/18/20 03:30 10/18/20 03:41 DC Albuterol/ Ipratropium (Duoneb (Ipr 0.5mg/Alb 2.5mg)) 3 ml RQ6H NEB 10/18/20 08:00 10/19/20 13:47 Apixaban (Eliquis) 5 mg BID PO 10/18/20 09:00 10/19/20 20:38 Ascorbic Acid (Vitamin C) 500 mg DAILY PO 10/18/20 09:00 Diazepam (Valium) 5 mg TID PO 10/18/20 09:00 10/19/20 20:37 Dimethicone (Vanicream Ointment) 1 dose BID TOP 10/18/20 21:00 10/19/20 20:38 Furosemide (LASIX injection) 60 mg DAILY IV 10/19/20 09:00 10/19/20 09:31 Furosemide (Lasix) 20 mg MoWeFr@0900 PO 10/19/20 09:00 10/18/20 06:21 DC Furosemide (Lasix) 40 mg DAILY PO 10/18/20 09:00 10/19/20 08:57 DC Home Med (Med Rec Complete!) ASDIRECTED XX 10/18/20 03:15 10/18/20 03:07 DC Hydrochlorothiazide (Hydrodiuril) 25 mg DAILY PO 10/18/20 09:00 10/19/20 09:33 Magnesium Oxide (Mag-Ox) 400 mg DAILY PO 10/18/20 09:00 10/19/20 09:32 Methylprednisolone (SOLU medrol) 40 mg Q12H IV 10/18/20 13:00 10/19/20 08:55 DC 10/19/20 00:13 Metoprolol Tartrate (Lopressor) 25 mg BID PO 10/18/20 09:00 10/19/20 20:36 Oxycodone/ Acetaminophen (Percocet 5mg/ 325mg Tablet) 1 tab Q6HP PRN PO MODERATE PAIN (PS 5-7) 10/18/20 03:30 10/19/20 05:45 Pantoprazole Sodium (Protonix) 40 mg DAILY IV 10/18/20 09:00 Potassium Chloride (Micro-K Extencaps) 10 meq DAILY PO 10/18/20 09:00 10/19/20 09:33 Prednisone (Deltasone) 40 mg DAILY PO 10/18/20 09:00 10/18/20 03:41 DC Prednisone (Deltasone) 60 mg DAILY PO 10/19/20 09:00 10/19/20 09:32 Senna (Senokot) 2 tab QHS PO 10/18/20 21:00 10/19/20 20:37 Tiotropium Tad (Spiriva Handihaler) 1 inhalation DAILY@0800 INH 10/18/20 08:00 10/18/20 03:48 DC Allergies Coded Allergies: adhesive tape (Verified Allergy, Intermediate, RASH, 12/20/18) latex (Verified Allergy, Intermediate, RASH, 12/20/18) Kimberly Rendon MD Oct 19, 2020 20:58
[2020-10-19 22:00] VITALS: BP 121/56
[2020-10-20] MEDS: IPRATROPIUM 0.5MG/ALBUTEROL 2.5MG INH SOL UD 3ML (DUONEB) NEB SCH ×4 (01:54→18:35)
[2020-10-20] MEDS: PERCOCET 5MG/325MG TAB PO PRN ×3 (02:22→23:08)
[2020-10-20 06:00] VITALS: BP 142/81
[2020-10-20 06:14] LABS: HEMATOCRIT 43.2 % (36.0-47.0); HEMOGLOBIN 13.3 g/dl (12.0-15.5); MEAN CORPUSCULAR HEMOGLOBIN 30.6 pg (27.0-33.0); MEAN CORPUSCULAR HGB CONC 30.8 g/dl (32.0-36.5); MEAN CORPUSCULAR VOLUME 99.3 fl (80.0-96.0); PLATELET COUNT, AUTOMATED 175 10^3/uL (150-450); RED BLOOD COUNT 4.35 10^6/uL (4.00-5.40); WHITE BLOOD COUNT 16.4 10^3/uL (4.0-10.0)
[2020-10-20 07:11] LABS: CALCIUM LEVEL 9.6 MG/DL (8.8-10.2); CREATININE FOR GFR 1.13 MG/DL (0.55-1.30); GLOMERULAR FILTRATION RATE 49.7 (>39); MAGNESIUM LEVEL 2.1 MG/DL (1.8-2.4); POTASSIUM SERUM 3.2 MEQ/L (3.5-5.1)
[2020-10-20] MEDS: FUROSEMIDE 100MG/10ML VIAL (J1940) IV SCH (08:58)
[2020-10-20] MEDS: hydroCHLOROthiazide 25 MG TAB PO SCH (08:59)
[2020-10-20] MEDS: METOPROLOL TART 25 MG TABLET PO SCH ×2 (08:59→20:30)
[2020-10-20] MEDS: predniSONE 20 MG TAB PO SCH (08:59)
[2020-10-20] MEDS: ASCORBIC ACID 500 MG TAB PO SCH (09:00)
[2020-10-20] MEDS: diazePAM 5MG TABLET PO SCH ×3 (09:00→20:30)
[2020-10-20] MEDS: APIXABAN 5 MG TAB (ELIQUIS) PO SCH ×2 (09:00→20:30)
[2020-10-20] MEDS: PANTOPRAZOLE 40MG VIAL (C9113 PER 1) IV SCH (09:00)
[2020-10-20] MEDS: MAGNESIUM OXIDE 400 MG TAB (MAG-OX) PO SCH (09:00)
[2020-10-20] MEDS: POTASSIUM CHLORIDE 10 MEQ SR TABLET PO SCH (09:00)
[2020-10-20] MEDS: DIMETHICONE 2% OINTMENT(VANICREAM) 70GM TUBE TOP SCH ×2 (09:02→20:31)
--- NOTE | 2020-10-20 12:14 | IPNPDOC ---
Text Note Date of Service The patient was seen on 10/20/20. NOTE SUBJECTIVE: Patient seen and examined at bedside. States she feels weaker today. No acute overnight events reported. OBJECTIVE: VITAL SIGNS: Please see below GENERAL APPEARANCE: Patient is awake, alert and oriented. comfortable in bed HEENT: Atraumatic. Normocephalic. Eyes are nonicteric. Trachea is midline. Mucous membranes are pink and moist. NC in place CARDIOVASCULAR:. Normal S1, S2., Regular rate with a irregularly irregular rhythm. No clicks rubs or murmurs LUNGS: diminished breath sounds bilaterally ABDOMEN: Morbidly obese. Soft nondistended, nontender, no rebound tenderness or guarding. Normoactive bowel sounds throughout. EXTREMITIES: Trace bilateral lower extremity edema. LABORATORY DATA: See below. A/P: 75F with PMHx including chronic hypoxemic hypercarbic respiratory failure on 2 L nasal cannula at baseline COPD, HTN, pulmonary hypertension and HFpEF, who presented to the [facility] emergency department for SOB over the past 1-2 days. Patient's imaging was negative for any acute changes. Patient was admitted for COPD exacerbation. #SOB - likely multifactorial to COPD exacerbation, CHF with exacerbation, noncompliance with LEANNE with pulmonary HTN -On 3 L NC, home amount is 2 L NC -See below for treatment of individual issues #Acute on chronic HFpEF with exacerbation / mod-severe PH likely 2/2 to noncompliance with CPAP, poor management of LEANNE -Increased lasix to 40 mg IV BID as she did not diurese much -F/u U/o, I&O's, daily wt, low salt diet - Does not have butter fat tester but would recommend referral by PCP -Also is noncompliant with CPAP, personal choice. Risks of noncompliance explained to her. #Acute COPD with mild exacerbation-resolved. -No wheezing, Lung sounds much improved -PO steroids, duonebs #Pulmonary hypertension likely 2/2 to uncontrolled LEANNE from noncompliance with CPAP -See above #Atrial fibrillation -HR controlled -C/w BB, Eliquis BID #Obstructive sleep apnea -noncompliant with cpap -Would advise to follow directions for wearing CPAP #Generalized Anxiety Disorder -Continue Diazepam #Hypertension -Stable -Continue Lopressor , lasix #GI prophylaxis -Protonix #DVT Prophylaxis -Eliquis DISPOSITION: PT/OT. Plan is discharge home when medically improved. VS,Fishbone, I+O VS, Fishbone, I+O Laboratory Tests 10/20/20 05:51 Vital Signs Date Time Temp Pulse Resp B/P (MAP) Pulse Ox O2 Delivery O2 Flow Rate FiO2 10/20/20 08:59 96 143/78 10/20/20 06:00 98.0 20 94 Nasal Cannula 3.0 I&O- Last 24 Hours up to 6 AM 10/20/20 06:00 Intake Total 1120 ml Output Total 1820 ml Balance -700 ml ANIBAL HUTCHINSON MD Oct 20, 2020 12:14
--- NOTE | 2020-10-20 13:08 | REP ---
INDICATION: sob COMPARISON: 10/18/2020 TECHNIQUE: PA and lateral. FINDINGS: The mediastinum and cardiac silhouette are normal. The lung abbasi demonstrate bibasilar atelectasis (left greater than right) and small right pleural effusion. No pneumothorax. Skeletal structures stable. IMPRESSION: Acute basilar atelectasis and small right pleural effusion. <Electronically signed by Baltazar Palmer > 10/20/20 [id number]
[2020-10-20 14:00] VITALS: BP 141/77
[2020-10-20] MEDS: FUROSEMIDE 40MG/4ML VIAL (J1940) IV SCH (17:58)
[2020-10-20] MEDS: SENNA 8.6 MG TAB (SENOKOT) PO SCH (20:29)
[2020-10-20 22:00] VITALS: BP 136/73
[2020-10-21] MEDS: IPRATROPIUM 0.5MG/ALBUTEROL 2.5MG INH SOL UD 3ML (DUONEB) NEB SCH ×4 (01:07→20:47)
[2020-10-21 06:00] VITALS: BP 152/83
[2020-10-21 08:03] LABS: HEMATOCRIT 45.6 % (36.0-47.0); HEMOGLOBIN 13.8 g/dl (12.0-15.5); MEAN CORPUSCULAR HEMOGLOBIN 29.6 pg (27.0-33.0); MEAN CORPUSCULAR HGB CONC 30.3 g/dl (32.0-36.5); MEAN CORPUSCULAR VOLUME 97.9 fl (80.0-96.0); PLATELET COUNT, AUTOMATED 169 10^3/uL (150-450); RED BLOOD COUNT 4.66 10^6/uL (4.00-5.40); WHITE BLOOD COUNT 13.5 10^3/uL (4.0-10.0)
[2020-10-21 08:33] LABS: CALCIUM LEVEL 9.4 MG/DL (8.8-10.2); CREATININE FOR GFR 1.18 MG/DL (0.55-1.30); GLOMERULAR FILTRATION RATE 47.3 (>39); POTASSIUM SERUM 3.3 MEQ/L (3.5-5.1)
[2020-10-21] MEDS: PERCOCET 5MG/325MG TAB PO PRN ×3 (09:39→23:13)
[2020-10-21] MEDS: MAGNESIUM OXIDE 400 MG TAB (MAG-OX) PO SCH (09:44)
[2020-10-21] MEDS: POTASSIUM CHLORIDE 10 MEQ SR TABLET PO SCH (09:44)
[2020-10-21] MEDS: PANTOPRAZOLE 40MG VIAL (C9113 PER 1) IV SCH (09:44)
[2020-10-21] MEDS: METOPROLOL TART 25 MG TABLET PO SCH ×2 (09:45→20:06)
[2020-10-21] MEDS: hydroCHLOROthiazide 25 MG TAB PO SCH (09:45)
[2020-10-21] MEDS: ASCORBIC ACID 500 MG TAB PO SCH (09:45)
[2020-10-21] MEDS: diazePAM 5MG TABLET PO SCH ×3 (09:45→20:05)
[2020-10-21] MEDS: APIXABAN 5 MG TAB (ELIQUIS) PO SCH ×2 (09:45→20:05)
[2020-10-21] MEDS: predniSONE 20 MG TAB PO SCH (09:45)
[2020-10-21] MEDS: FUROSEMIDE 40MG/4ML VIAL (J1940) IV SCH ×2 (09:46→17:11)
[2020-10-21] MEDS: DIMETHICONE 2% OINTMENT(VANICREAM) 70GM TUBE TOP SCH ×2 (09:46→20:06)
--- NOTE | 2020-10-21 12:41 | IPNPDOC ---
Text Note Date of Service The patient was seen on 10/21/20. NOTE SUBJECTIVE: Patient seen and examined at bedside. States her breathing is much improved, but still notes . No acute overnight events reported. OBJECTIVE: VITAL SIGNS: Please see below GENERAL APPEARANCE: Patient is awake, alert and oriented. comfortable in bed HEENT: Atraumatic. Normocephalic. Eyes are nonicteric. Trachea is midline. Mucous membranes are pink and moist. NC in place CARDIOVASCULAR:. Normal S1, S2., Regular rate with a irregularly irregular rhythm. No clicks rubs or murmurs LUNGS: diminished breath sounds bilaterally ABDOMEN: Morbidly obese. Soft nondistended, nontender, no rebound tenderness or guarding. Normoactive bowel sounds throughout. EXTREMITIES: Trace bilateral lower extremity edema. LABORATORY DATA: See below. A/P: 75F with PMHx including chronic hypoxemic hypercarbic respiratory failure on 2 L nasal cannula at baseline COPD, HTN, pulmonary hypertension and HFpEF, who presented to the [facility] emergency department for SOB over the past 1-2 days. Patient's imaging was negative for any acute changes. Patient was admitted for COPD exacerbation. #SOB - likely multifactorial to COPD exacerbation, CHF with exacerbation, noncompliance with LEANNE with pulmonary HTN - saturating well at baseline 2L nasal cannula -See below for treatment of individual issues #Acute on chronic HFpEF with exacerbation / mod-severe PH likely 2/2 to noncompliance with CPAP, poor management of LEANNE -Increased lasix to 40 mg IV BID - may require increased dosage - implement fluid restriction -F/u U/o, I&O's, daily wt, low salt diet - Does not have supervisor coil springs but would recommend referral by PCP -Also is noncompliant with CPAP, personal choice. Risks of noncompliance explained to her. #Acute COPD with mild exacerbation-resolved. -No wheezing, Lung sounds much improved -PO steroids, duonebs #Pulmonary hypertension likely 2/2 to uncontrolled LEANNE from noncompliance with CPAP -See above #Atrial fibrillation -HR controlled -C/w BB, Eliquis BID #Obstructive sleep apnea -noncompliant with cpap -advised to follow directions for wearing CPAP #Generalized Anxiety Disorder -Continue Diazepam #Hypertension -Stable -Continue Lopressor , lasix #GI prophylaxis -Protonix #DVT Prophylaxis -Eliquis DISPOSITION: pending clinical improvement VS,Fishbone, I+O VS, Fishbone, I+O Laboratory Tests 10/21/20 07:23 Vital Signs Date Time Temp Pulse Resp B/P (MAP) Pulse Ox O2 Delivery O2 Flow Rate FiO2 10/21/20 10:09 18 10/21/20 09:45 94 130/70 10/21/20 09:39 Nasal Cannula 2.0 10/21/20 06:00 96.9 92 I&O- Last 24 Hours up to 6 AM 10/21/20 06:00 Intake Total 1120 ml Output Total 3100 ml Balance -1980 ml ANIBAL HUTCHINSON MD Oct 21, 2020 12:41
[2020-10-21] MEDS ORDERED: POTASSIUM CHLORIDE 10 MEQ SR TABLET PO ONE ×2 (13:00)
[2020-10-21 14:26] VITALS: BP 119/65
[2020-10-21] MEDS: SENNA 8.6 MG TAB (SENOKOT) PO SCH (20:05)
[2020-10-21 22:00] VITALS: BP 121/70
[2020-10-22] MEDS: IPRATROPIUM 0.5MG/ALBUTEROL 2.5MG INH SOL UD 3ML (DUONEB) NEB SCH ×2 (02:31→07:55)
[2020-10-22 06:00] VITALS: BP 157/89
[2020-10-22 06:26] LABS: HEMATOCRIT 45.7 % (36.0-47.0); HEMOGLOBIN 14.2 g/dl (12.0-15.5); MEAN CORPUSCULAR HEMOGLOBIN 30.4 pg (27.0-33.0); MEAN CORPUSCULAR HGB CONC 31.1 g/dl (32.0-36.5); MEAN CORPUSCULAR VOLUME 97.9 fl (80.0-96.0); PLATELET COUNT, AUTOMATED 168 10^3/uL (150-450); RED BLOOD COUNT 4.67 10^6/uL (4.00-5.40); WHITE BLOOD COUNT 11.7 10^3/uL (4.0-10.0)
[2020-10-22 06:56] LABS: CALCIUM LEVEL 9.3 MG/DL (8.8-10.2); CREATININE FOR GFR 1.11 MG/DL (0.55-1.30); GLOMERULAR FILTRATION RATE 50.7 (>39); MAGNESIUM LEVEL 1.8 MG/DL (1.8-2.4); POTASSIUM SERUM 3.6 MEQ/L (3.5-5.1)
[2020-10-22 09:24] VITALS: BP 130/68
[2020-10-22] MEDS: diazePAM 5MG TABLET PO SCH (09:24)
[2020-10-22] MEDS: PANTOPRAZOLE 40MG VIAL (C9113 PER 1) IV SCH (09:24)
[2020-10-22] MEDS: METOPROLOL TART 25 MG TABLET PO SCH (09:24)
[2020-10-22] MEDS: FUROSEMIDE 40MG/4ML VIAL (J1940) IV SCH (09:24)
[2020-10-22] MEDS: hydroCHLOROthiazide 25 MG TAB PO SCH (09:24)
[2020-10-22] MEDS: POTASSIUM CHLORIDE 10 MEQ SR TABLET PO SCH (09:25)
[2020-10-22] MEDS: APIXABAN 5 MG TAB (ELIQUIS) PO SCH (09:25)
[2020-10-22] MEDS: ASCORBIC ACID 500 MG TAB PO SCH (09:25)
[2020-10-22] MEDS: predniSONE 20 MG TAB PO SCH (09:25)
[2020-10-22] MEDS: MAGNESIUM OXIDE 400 MG TAB (MAG-OX) PO SCH (09:25)
[2020-10-22] MEDS: DIMETHICONE 2% OINTMENT(VANICREAM) 70GM TUBE TOP SCH (09:26)
[2020-10-22] MEDS ORDERED: PRED10TA2 PO (10:18)
[2020-10-22] MEDS ORDERED: LASI40TA9 PO (10:18)
[2020-10-22] MEDS: PERCOCET 5MG/325MG TAB PO PRN (10:52)
--- NOTE | 2020-10-22 14:13 | DS.PDOC ---
Discharge Summary General Date of Admission Oct 18, 2020 at 02:48 Date of Discharge 10/22/20 Discharge Summary PROCEDURES PERFORMED DURING STAY: [None]. ADMITTING DIAGNOSES: Respiratory Distress Secondary Diagnoses: 1., Nonvalvular age of defibrillation. Echocardiogram completed on 06/07/2020 2. Pulmonary Hypertension with pulmonary artery pressure of 40-50, bilateral atrial enlargement 3. Chronic obstructive pulmonary disease 4. Chronic hypoxemic hypercarbic respiratory failure on 2 L nasal cannula at baseline 5. Hypertension 6. Morbid obesity 7. Generalized anxiety disorder 8. Vitamin D deficiency 9. Allergic rhinitis 10. Prediabetes PAST SURGICAL HISTORY: 1. Left ankle fracture in 1975 2. Left hand fracture 1995. 3. Umbilical herniography. 4. Appendectomy 5. Bilateral carpal tunnel release 6. Benign neck tumor excision 2 7. Bilateral tubal ligation COMPLICATIONS/CHIEF COMPLAINT: Dyspnea. HISTORY OF PRESENT ILLNESS: Patient is a 75-year-old female with past medical history again for chronic hypoxic hypercarbic respiratory failure on 2 L nasal cannula secondary to COPD, nonvalvular atrial fibrillation, congestive heart failure with preserved ejection fraction. Last echocardiogram completed in May 2020, pulmonary hypertension, hypertension and morbid obesity who presented to the [facility] emergency department with complaint of shortness of breath for 2 days duration. Patient stated that about 1-2 days ago she felt more short of breath. . She stated that her shortness of breath was present both with lying flat and with sitting up. She admits to a chronic cough, however, denies any increase in sputum production. She denies any chest pain or palpitations. She denies any pain on deep inspiration. Additionally, the patient states that she has chronic lower extremity swelling. On presentation to the emergency department the patient was vitally stable. She was hypoxic and was placed on 3 L nasal cannula. Laboratory studies showed a very mild leukocytosis. She had an elevated BNP. Chest x-ray obtained not demonstrate any infiltrates. He does have cardiomegaly and prominent vascular markings, which are unchanged from prior x-rays. She was given 40 mg IV Lasix any zinc sulfate and Solu-Medrol in the ED. Hospitalist service was consultative and the patient was admitted for further evaluation management HOSPITAL COURSE: 75F with PMHx including chronic hypoxemic hypercarbic respiratory failure on 2 L nasal cannula at baseline COPD, HTN, pulmonary hypertension and HFpEF, who presented to the [facility] emergency department for SOB over the past 1-2 days. Patient's imaging was negative for any acute changes. Patient was admitted for COPD exacerbation. #SOB - likely multifactorial to COPD exacerbation, CHF with exacerbation, noncompliance with LEANNE with pulmonary HTN - saturating well at baseline 2L nasal cannula #Acute on chronic HFpEF with exacerbation / mod-severe PH likely 2/2 to noncompliance with CPAP, poor management of LEANNE - continue diuretic therapy - reevaluate in 5-7 days - implement fluid restriction - Does not have conservator artifacts but would recommend referral by PCP -Also is noncompliant with CPAP, personal choice. Risks of noncompliance explained to her. #Acute COPD with mild exacerbation-resolved. -No wheezing, Lung sounds much improved -PO steroids, duonebs #Pulmonary hypertension likely 2/2 to uncontrolled LEANNE from noncompliance with CPAP -See above #Atrial fibrillation -HR controlled -C/w BB, Eliquis BID #Obstructive sleep apnea -noncompliant with cpap -advised to follow directions for wearing CPAP #Generalized Anxiety Disorder -Continue Diazepam #Hypertension -Stable -Continue Lopressor , lasix DISCHARGE MEDICATIONS: Please see below. ALLERGIES: Please see below. PHYSICAL EXAMINATION ON DISCHARGE: VITAL SIGNS: Please see below. GENERAL APPEARANCE: Patient is awake, alert and oriented. comfortable in bed HEENT: Atraumatic. Normocephalic. Eyes are nonicteric. Trachea is midline. Mucous membranes are pink and moist. NC in place CARDIOVASCULAR:. Normal S1, S2., Regular rate with a irregularly irregular rhythm. No clicks rubs or murmurs LUNGS: diminished breath sounds bilaterally ABDOMEN: Morbidly obese. Soft nondistended, nontender, no rebound tenderness or guarding. Normoactive bowel sounds throughout. EXTREMITIES: Trace bilateral lower extremity edema. LABORATORY DATA: See below. LABORATORY DATA: Please see below. ACTIVITY: [As tolerated]. DISPOSITION: Discharge to ARU DISCHARGE INSTRUCTIONS: 1 Follow up PCP in 3-5 days 2. Follow up BMP, titrate diuretic therapy DISCHARGE CONDITION: [Stable]. TIME SPENT ON DISCHARGE: 35 minutes. Vital Signs/I&Os Vital Signs Date Time Temp Pulse Resp B/P (MAP) Pulse Ox O2 Delivery O2 Flow Rate FiO2 10/22/20 11:22 18 10/22/20 09:24 94 130/68 10/22/20 09:00 2.0 10/22/20 06:00 97.4 96 Nasal Cannula I&O- Last 24 Hours up to 6 AM 10/22/20 06:00 Intake Total 850 ml Output Total 1520 ml Balance -670 ml Laboratory Data Labs 24H Laboratory Tests 2 10/22/20 05:59: Nucleated Red Blood Cells % (auto) 0.0, Anion Gap 5L, Glomerular Filtration Rate 50.7, Calcium Level 9.3, Magnesium Level 1.8, JH-Tbh-B-Type Natriuretic Peptide 1401H CBC/BMP Laboratory Tests 10/22/20 05:59 Discharge Medications Scheduled Apixaban (Eliquis) 5 Mg Tablet, 5 MG PO BID, (Reported) Ascorbic Acid (Ascorbic Acid) 500 Mg Tablet, 500 MG PO DAILY, (Reported) Cholecalciferol (Vitamin D3) (Vitamin D3) 1,000 Unit Tablet, 2,000 UNITS PO DAILY, (Reported) Diazepam (Valium) 5 Mg Tab, 5 MG PO TID, (Reported) Furosemide (Lasix) 40 Mg Tablet, 40 MG PO BID Hydrochlorothiazide (Hydrochlorothiazide) 25 Mg Tablet, 25 MG PO DAILY, (Reported) Magnesium Oxide (Magnesium) 400 Mg Capsule, 400 MG PO DAILY, (Reported) Metoprolol Tartrate (Metoprolol Tartrate) 25 Mg Tablet, 25 MG PO BID, (Reported) Potassium Chloride (Potassium Chloride) 10 Meq Tab.er.prt, 10 MEQ PO DAILY, (Reported) Prednisone (Prednisone) 10 Mg Tablet, 10 MG PO TAPER Take 4 tabs daily x 3 days, then 3 tabs daily x 3 days, then 2 tabs daily x 3 days, then 1 tab daily x 3 days and stop Tiotropium [place] (Spiriva) 18 Mcg Cap.w.dev, 1 CAP INH DAILY, (Reported) Vitamin E (Vitamin E) 400 Unit Capsule, 400 UNIT PO DAILY, (Reported) Scheduled PRN Albuterol Sulf (Albuterol Sulfate) 2.5 Mg/3 Ml Nebu, 1 VIAL NEB Q4H PRN for SOB/WHEEZING, (Reported) Albuterol Sulfate (Proair Hfa) 108 Mcg/Act Aer, 2 PUFF INH QID PRN for SHORTNESS OF BREATH, (Reported) Oxycodone HCl/Acetaminophen (Percocet 7.5-325 mg Tablet) 1 Each Tablet, 1 TAB PO TID PRN for PAIN, (Reported) Allergies Coded Allergies: adhesive tape (Verified Allergy, Intermediate, RASH, 12/20/18) latex (Verified Allergy, Intermediate, RASH, 12/20/18) azithromycin (Unverified Allergy, Unknown, Unknown, 10/22/20) Listed under ANIBAL Smith MD Oct 22, 2020 14:13
== END 2020-10-22 14:04 | DRG 292 ==
LOC: M ED 00:36 → M ED INP 02:48 → ENRESERVTM 04:16 → ENRESERVDT 04:16 → M MSPAV 04:33
PROVIDERS: ADMIT Internal Medicine; ATTEND Internal Medicine
DX: I11.0 Hypertensive heart disease with heart failure (principal); J96.11 Chronic respiratory failure with hypoxia; J96.12 Chronic respiratory failure with hypercapnia; Z68.41 Body mass index [BMI] 40.0-44.9, adult; J44.1 Chronic obstructive pulmonary disease with (acute) exacerbation; E66.2 Morbid (severe) obesity with alveolar hypoventilation; I50.33 Acute on chronic diastolic (congestive) heart failure; I48.91 Unspecified atrial fibrillation; I27.20 Pulmonary hypertension, unspecified; Z99.81 Dependence on supplemental oxygen; F41.1 Generalized anxiety disorder; E55.9 Vitamin D deficiency, unspecified; J30.9 Allergic rhinitis, unspecified; R73.03 Prediabetes; Z87.891 Personal history of nicotine dependence; Z20.822 Contact with and (suspected) exposure to COVID-19; Z79.01 Long term (current) use of anticoagulants; Z79.899 Other long term (current) drug therapy; Z91.040 Latex allergy status; Z91.048 Other nonmedicinal substance allergy status; Z91.19 Patient's noncompliance with other medical treatment and regimen; Z88.1 Allergy status to other antibiotic agents

== ENCOUNTER 2020-10-22 10:59 | Inpatient (IN) | payer MEDICARE, OTHER ==
[~2020-10-22] VITALS: Ht 147.3 cm; Wt 87.0 kg
[~2020-10-22 10:59] MED LIST changes: +HYDR-3490 PO; +LASI40TA9 PO; +POTA10TA17 PO; +PRED10TA2 PO
[2020-10-22 14:21] VITALS: BP 146/73
--- OUTSIDE RECORDS SUMMARY | 2020-10-22 14:30 | CCD ---
Author Author [facility] Organization [facility] Address Unknown Phone Unavailable Care Team Providers Care Vp Biology Name Role Phone Delroy, M Della RPA [...] Unavailable Unavailable Rudi Beltran MD Unavailable Unavailable UrbyRudi MD Unavailable Unavailable RubyRudi MD Unavailable Unavailable [...] Unavailable Unavailable RubyRudi montana MD Unavailable Unavailable RubyRudiie MD Unavailable Unavailable Rudi Beltran MD Unavailable [...] is protected by Article 27-F of the [facility] Public Health law. If you continue you may have access to information: Regarding HIV / AIDS; Provided by facilities licensed or operated by the [facility] Office of Mental Health; or Provided by the [facility] Office for People With Developmental Disabilities. If such information is present, then the following [facility] mandated warning applies: This information [...] law may result in a fine or fci sentence or both. A general authorization for the release of medical or other information is NOT sufficient authorization for further disc losure. Family History Family Member Name Family Member Gender Family Member Status Date o f Status Description Data Source(s) Unknown Unknown Problem [facility] ([facility]) Unknown Female Problem [facility] ([facility]) Unknown Male Problem [facility] Unknown Female Problem [facility] ([facility]) Encounters Encounter Providers Location Date Indications Data Source(s ) Outpatient Attender: DELFIN Cary 1 03:20:00 PM EDT [facility] ([facility] ) Outpatient Attender: DELFIN Cary 0 06/08/2020 10:40:00 AM EDT [facility] ([facility] ) Outpatient Attender: Della Potts [facility] 02/25/2020 07:37:44 PM EDT [facility] Outpatient Attender: DELFIN Cary 0 02/24/2020 02:40:00 PM EDT [facility] ([facility] ) Outpatient Attender: Shanta Cary 11:45:00 AM EDT [facility] ([facility] ) Medications Medication Brand Name Start [...] DAILY DOSE = THREE TABLETS SOLD: 09/01/2020 [facility] 7.5-325 mg 08/27/2020 12:00:00 AM [...] MAXIMUM DAILY DOSE = 3 SOLD: 07/27/2020 [facility] 7.5-325 mg 07/23/2020 12:00:00 AM EST tablet 90 TAKE ONE TABLET BY MOUTH THREE TIMES A DAY NEEDED FOR PAIN MAXIMUM DAILY DOSE = 3 TAKE ONE TABLET BY MOUTH THREE TIMES A DAY NEEDED FOR PAIN MAXIMUM DAILY DOSE = 3 SOLD: 07/27/2020 [facility] Meclizine Hydrochloride 25 MG Oral Tablet MECLIZINE HCL 07/21/2020 12:00:00 AM EST tablet 30 TAKE ONE TABLET BY MOUTH TRE RY 8 HOURS TAKE ONE TABLET BY MOUTH EVERY 8 HOURS SOLD: 07/27/2020 [facility] 10 mEq 07/18/2020 12:00:00 AM EDT tablet,ER particles/cry stals 30 TAKE ONE TABLET BY MOUTH EVERY MORNING TAKE ONE TABLET BY MOUTH EVERY MORNING SOLD: 07/27/2020 [facility] Potassium Chloride 10 MEQ Extended Release Oral Tablet Potassium Chloride [facility] 07/17/2020 12:00:00 AM EDT ORAL active [facility] ([facility]) Potassium Chloride 20 MEQ Extended Release Oral Tablet Potassium Chloride [facility] 06/23/2020 12:00:00 AM EDT ORAL active [facility] ([facility]) 20 mg 06/19/2020 12:00:00 AM EDT tablet 30 TAKE ONE TABLET BY MOUTH EVERY DAY TAKE ONE TABLET BY MOUTH EVERY DAY SOLD: 06/27/2020 [facility] 5 mg 06/15/2020 12:00:00 AM EDT [...] 06/12/2020 12:00:00 AM EDT ORAL completed [facility] ([facility]) tiotropium 0.018 MG/ACTUAT Inhalant Powder [Spiriva] Spiriva Handihaler 06/08/2020 12:00:00 AM EDT active [facility] ([facility]) Furosemide 20 MG Oral Tablet Furosemide 06/08/2020 12:00:00 AM EDT ORAL active [facility] ([facility]) 20 mg 06/08/2020 12:00:00 [...] 02/24/2020 12:00:00 AM EDT ORAL active [facility]) 20 mg 02/24/2020 12:00:00 AM EDT tablet 8 TAKE TWO TABLETS BY MOUTH EVERY DAY TAKE TWO TABLETS BY MOUTH EVERY DAY SOLD: 02/24/2020 [facility] Amoxicillin 500 MG Oral Capsule Amoxicillin 02/21/2020 12:00:00 AM EDT active [facility] ([facility]) 500 mg 02/21/2020 12:00:00 AM EDT [...] DAILY DOSE = 3 TABLETS SOLD: 12/16/2019 [facility] 5 mg 10/29/2019 12:00:00 AM [...] type / Coverage type Policy ID Covered democrat ID Covered democrat's relationship to zhang Policy Zhang Plan Information [facility] [id number] SP [id number] MEDICARE [id number] SP [id number] UMR O [id number] S [id number] MEDICARE C [id number] S [id number] [place]OM[place] S [id number] S [id number] Medicare P [id number] S [id number] A [place]/Umr (Old) Medigap Part B [id number] Self [id number] Medicare Natl Govt Servic Medicare Primary [id number] Self [id number] Umr (New [place]) Medigap Part B [id number] Self [id number] [place] Primary [id number] Self [id number] Umr Medigap Part B [id number] Self [id number] [facility] [id number] SP [id number] [place] Primary [id number] Self [id number] [place] (Old) Medigap Part B [id number] Self [id number] Medicare [place]l Govt Servic Medicare Primary [id number] Self [id number] [place] (Old) Medigap Part B [id number] Self [id number] Medicare [place] Govt Servic Medicare Primary [id number] Self [id number] [place] (Old) Medigap Part B [id number] Self [id number] Medicare [place] Govt Servic Medicare Primary [id number] Self [id number] POMCO [id number] SP [id number] MEDICARE [id number] SP [id number] A [place]Um[facility] (Old) Medigap Part B [id number] Self [id number] Medicare Natl Govt Servic Medicare Primary [id number] Self [id number] [place] Ppo Medigap Part B [id number] Self [id number] Medicare [place] Govt Servic Medicare Primary [id number] Self [id number] [place] Ppo Medigap Part B [id number] Self [id number] Medicare [place] Govt Servic Medicare Primary [id number] Self [id number] [place] Ppo Medigap Part B [id number] Self [id number] Medicare Natl Govt Servic Medicare Primary [id number] Self [id number] [place] Ppo Medigap Part B [id number] Self [id number] Medicare [place] Govt Servic Medicare Primary [id number] Self [id number] [place] Ppo Medigap Part B [id number] Self [id number] Medicare [place] Govt Servic Medicare Primary [id number] Self [id number] [place] Ppo Medigap Part B [id number] Self [id number] Medicare [place] Govt Servic Medicare Primary [id number] Self [id number] POMCO PPO O [id number] S [id number] MEDICARE C [id number] S [id number] A [facility] C [id number] S [id number] [place] Ppo Medigap Part B [id number] Self [id number] Medicare [place]l Govt Servic Medicare Primary [id number] Self [id number] [place] (pr) Medigap Part B Self [place] Primary Self [place] Ppo Medigap Part B 335 Self 335 Medicare [place]l Govt Servic Medicare Primary Self [place] Medigap Part B 335 Self 335 [place]/[facility] Medicare Primary Self POMCO [id number] SP [id number] POMCO [id number] SP [id number] POMCO PPO S [id number] S [id number] POMCO [id number] SP [id number] A [id number] Results ID Date Data Source [id number] 10/18/2020 01:00:00 AM EST [facility] Name Value Range Interpretation Code Description Data Meseret rce(s) Supporting Document(s) SARS coronavirus 2 RNA [Presence] in Res piratory specimen by NAINA with probe detection NEGATIVE [facility] This lab was ordered by [facility] a nd reported by [facility]. ID Date Data Source [id number] 07/19/2020 10:17:00 AM EST [facility] ([facility]) Name Value Range Interpretation Code Description Data Meseret rce(s) Supporting Document(s) Bedside Glucose 105 mg/dL 83-110 [facility] ([facility]) ID Date Data Source [id number] 07/19/2020 09:49:00 AM EST [facility] ([facility]) Name Value Range Interpretation Code Description Data Meseret rce(s) Supporting Document(s) Magnesium [Moles/volume] in Serum or Plasma 1.6 mg/dL 1.8-2.4 [facility] ([facility]) Thyrotropin [Units/volume] in Serum or Plasma by Detec tion limit <= 0.05 mIU/L 1.440 uIU/ML 0.358-3.740 [facility] ([facility] ) Thyroxine (T4) free [Mass/volume] in Serum or Plasma 1.05 ng/dL 0.76- 1.46 [facility] ([facility]) ID Date Data Source [id number] 07/19/2020 09:49:00 AM EST [facility] ([facility]) Name Value Range Interpretation Code Description Data Meseret rce(s) Supporting Document(s) Blood Urea Nitrogen 21 mg/dL 7-18 [facility] ([facility]) Glucose, Fasting 131 mg/dL 70-100 [facility] ([facility]) Glomerular Filtration Rate 55.9 [facility] ([facility]) <content>Units are mL/min/1.73 m2</content>
<content></content>
<content>Chronic Kidney Disease Staging per NKF:</content>
<content></content>
<content>Stage I & II GFR >=60 Normal to Mildly Decreased</content>
<content>Stage III GFR 30- 59 Moderately Decreased</content>
<content>Stage IV GFR 15-29 Severely Decreased</content>
<content>Stage V GFR <15 Very Little GFR Left</content>
<content>ESRD GFR <15 on OXYGEN SYSTEM TESTER</content>
<content></content> Sodium Level 141 meq/L 136-145 [facility] ([facility]) Creatinine For GFR 1.02 mg/dL 0.55-1.30 [facility] ([facility]) Potassium Serum 3.6 meq/L 3.5-5.1 [facility] ([facility]) Chloride Level 101 meq/L 98-107 [facility] ([facility]) Carbon Dioxide Level 38 meq/L 21-32 [facility] ([facility]) Anion Gap 2 meq/L 8-16 [facility] Calcium Level 8.9 mg/dL 8.8-10.2 [facility] ([facility]) ID Date Data Source [id number] 07/19/2020 09:49:00 AM EST [facility] ([facility]) Name Value Range Interpretation Code Description Data Meseret rce(s) Supporting Document(s) MB/CK Relative Index 2.63 [facility] ([facility]) <content>DIAGNOSIS CRITERIA</content>
<content>MMB ng/ml Relative Index (RI)</content>
<content>NON-AMI < or = 5 N/A</content>
<content>MEYER ZONE > 5 < or = 4</content>
<content>AMI > 5 > 4</content>
<content></content> CK-MB Value Mass Laboratory test result [facility] ([facility]) CPK Creatine Phosphokinase 38 U/L 26-192 [facility] ([facility]) Troponin I Laboratory test result [facility] ([facility]) <content>Troponin I Reference Interval f or Siemens Bertram LOCI:</content>
<content></content>
<content>99th Percentile= 0.00-0.045 ng/ml</content>
<content></content>
<content>Risk Stratification:</content>
<content><= 0.10 ng/ml Decreased Risk for Adverse Clinical</content>
<content>Events.</content>
<content>0.10-1.50 ng/ml Increased Risk for Adverse Clinical</content>
<content>Events. Evaluation of additional</content>
<content>criterion and/or repeat testing in 2-6</content>
<content>hours is suggested to rule out myocardial</content>
<content>damage.</content>
<content>>= 1.50 ng/ml Indicative of Myocardial Injury.</content>
<content></content> ID Date Data Source [id number] 07/19/2020 09:49:00 AM EST [facility] ([facility]) Name Value Range Interpretation Code Description Data Meseret rce(s) Supporting Document(s) aPTT in Blood by Coagulation assay 43.2 s 24.2-38.5 [facility] ([facility]) ID Date Data Source [id number] 07/19/2020 09:49:00 AM EST [facility] ([facility]) Name Value Range Interpretation Code Description Data Meseret rce(s) Supporting Document(s) Inr 1.32 [facility] THERAPUTIC HUMAN INR VALUES INDICATIONS NORMAL RANGES PROPHYLAXIS/TREATMENT OF: VENOUS THROMBOSIS 2.0-3.0 PULMONARY EMBOLISM 2.0-3.0 PREVENTION OF SYSTEMIC EMBOLISM FROM: TISSUE HEART VALVES 2.0-3.0 ACUTE MYOCARDIAL INFARCTION 2.0-3.0 VALVULAR HEART DISEASE 2.0-3.0 ATRIAL FIBRILLATION 2.0-3.0 MECHANICAL VALVES(HIGH RISK) 2.5-3.5 RECURRENT MYOCARDIAL INFARCTION 2.5-3.5 Prothrombin Time 16.7 s 12.5-14.3 [facility] ([facility]) ID Date Data Source [id number] 07/19/2020 09:49:00 AM EST [facility]) Name Value Range Interpretation Code Description Data Meseret e(s) Supporting Document(s) White Blood Count 10.5 10 4.0-10.0 [facility] ([facility]) Hematocrit 43.2 % 36.0-47.0 [facility] Hemoglobin 13.3 g/dL 12.0-15.5 [facility] Red Blood Count 4.36 10 4.00-5.40 [facility] ([facility]) Mean Corpuscular Volume 99.1 fl 80.0-96.0 [facility] ([facility]) Mean Corpuscular HGB Conc 30.8 g/dL 32.0-36.5 [facility]E NT ([facility]) Mean Corpuscular Hemoglobin 30.5 pg 27.0-33.0 [facility] ([facility]) Red Cell Distribution Width 13.2 % 11.5-14.5 [facility] ([facility]) Platelet Count, Automated 207 10 150-450 [facility] NT ([facility]) Neutrophils % 74.5 % 36.0-66.0 [facility] ([facility]) Park % 5.8 % 0.0-5.0 [facility] Lymph % 15.8 % 24.0-44.0 [facility] Eos % 3.0 % 0.0-3.0 [facility] Nucleated Red Blood Cell % 0.0 % 0-0 [facility] ([facility]) Baso % 0.5 % 0.0-1.0 [facility] Immature Granulocyte % 0.4 % 0-3.0 [facility] ([facility]) Park # 0.6 10 0.0-0.8 [facility] Lymph # 1.7 10 1.5-5.0 [facility] Neutrophils # 7.8 10 1.5-8.5 [facility]) Baso # 0.1 10 0.0-0.2 [facility] Eos # 0.3 10 0.0-0.5 [facility] ID Date Data Source [id number] 06/22/2020 03:47:00 PM EDT [facility] ([facility]) Name Value Range Interpretation Code Description Data Meseret rce(s) Supporting Document(s) Urea nitrogen [Mass/volume] in Serum or Plasma 26 mg/dL 7-18 [facility] ([facility]) Creatinine 1.1 mg/dL 0.6-1.3 [facility] ([facility]) Glucose [Mass/volume] in Serum or Plasma 131 mg/dL 74-99 [facility] ([facility]) 100-125 mg/dL PRE-DIABETES/FASTING >126 mg/dL DIABETES/FASTING Sodium [Moles/volume] in Serum or Plasma 145 meq/L 136-145 [facility] ([facility]) Potassium [Moles/volume] in Serum or Plasma 3.1 meq/L 3.5-5.1 [facility] ([facility]) Chloride [Moles/volume] in Serum or Plasma 102 meq/L 98-107 [facility] ([facility]) Calcium [Mass/volume] in Serum or Plasma 8.8 mg/dL 8.5-10.1 [facility] ([facility]) Glomerular filtration rate/1.73 sq M pre dicted among non-blacks [Volume Rate/Area] in Serum or Plasma by Creatinine-based formula (MDRD) 48 mL/min [facility] ([facility]) Carbon dioxide, total [Moles/volume] in Serum or Plasma 36 meq/L 21 -32 [facility] Glomerular filtration rate/1.73 sq M pre dicted among blacks [Volume Rate/Area] in Serum or Plasma by Creatinine-based formula (MDRD) 58 mL/min [facility] ([facility]) <content>CHRONIC KIDNEY DISEASE STAGING PER NKF</content>
<content></content>
<content>STAGE I & II GFR >= 60 NORMAL TO MILDLY DECREASED</content>
<content>STAGE III GFR 30-59 MODERATELY DECREASED</content>
<content>STAGE IV GFR 15-29 SEVERELY DECREASED</content>
<content>STAGE V GFR <15 VERY LITTLE GFR LEFT</content>
<content>ESRD GFR <15 ON OXYGEN SYSTEM TESTER</content>
<content></content> ID Date Data Source [id number] 06/08/2020 11:11:00 AM EDT [facility] ([facility]) Name Value Range Interpretation Code Description Data Meseret rce(s) Supporting Document(s) Glucose [Mass/volume] in Serum or Plasma 110 mg/dL 74-99 [facility] ([facility]) 100-125 mg/dL PRE-DIABETES/FASTING >126 mg/dL DIABETES/FASTING Sodium [Moles/volume] in Serum or Plasma 141 meq/L 136-145 [facility] ([facility]) Creatinine 0.9 mg/dL 0.6-1.3 [facility] Urea nitrogen [Mass/volume] in Serum or Plasma 18 mg/dL 7-18 [facility] ([facility]) Carbon dioxide, total [Moles/volume] in Serum or Plasma 35 meq/L 21 -32 [facility] ([facility]) Potassium [Moles/volume] in Serum or Plasma 3.6 meq/L 3.5-5.1 [facility] ([facility]) Chloride [Moles/volume] in Serum or Plasma 101 meq/L 98-107 [facility] ([facility]) Calcium [Mass/volume] in Serum or Plasma 9.0 mg/dL 8.5-10.1 [facility] ([facility]) Glomerular filtration rate/1.73 sq M pre dicted among non-blacks [Volume Rate/Area] in Serum or Plasma by Creatinine-based formula (MDRD) Laboratory test result [facility] ([facility] ) Glomerular filtration rate/1.73 sq M pre dicted among blacks [Volume Rate/Area] in Serum or Plasma by Creatinine-based formula (MDRD) Laboratory test result [facility] <content>CHRONIC KIDNEY DISEASE STAGING PER NKF</content>
<content></content>
<content>STAGE I & II GFR >= 60 NORMAL TO MILDLY DECREASED</content>
<content>STAGE III GFR 30-59 MODERATELY DECREASED</content>
<content>STAGE IV GFR 15-29 SEVERELY DECREASED</content>
<content>STAGE V GFR <15 VERY LITTLE GFR LEFT</content>
<content>ESRD GFR <15 ON OXYGEN SYSTEM TESTER</content>
<content></content> ID Date Data Source [id number] 06/08/2020 11:11:00 AM EDT [facility] ([facility]) Name Value Range Interpretation Code Description Data Meseret rce(s) Supporting Document(s) Natriuretic peptide B [Mass/volume] in Serum or Plasma 189.0 pg/mL 0.0-100.0 [facility] ([facility]) ID Date Data Source [id number] 05/27/2020 07:44:00 AM EDT [facility] ([facility]) Name Value Range Interpretation Code Description Data Meseret rce(s) Supporting Document(s) ABG Partial Pressure Co2 56.9 mmHg 35.0-45.0 [facility] T ([facility]) ABG pH (Arterial) 7.402 units 7.350-7.450 [facility] ( [facility]) ABG Total Co2 36.4 meq/L 23.0-31.0 [facility] ([facility]) ABG Partial Pressure O2 131.8 mmHg 75.0-100.0 [facility] NT ([facility]) ABG Hco3 34.6 meq/L 22.0-26.0 [facility] ABG O2 Saturation 98.9 % 95.0-99.0 [facility] ([facility]) ABG Standard Hco3 31.8 meq/L 22.0-26.0 [facility] ([facility]) ABG Base Excess 7.9 [facility] ([facility]) ID Date Data Source [id number] 05/27/2020 07:42:00 AM EDT [facility] ([facility]) Name Value Range Interpretation Code Description Data Meseret rce(s) Supporting Document(s) White Blood Count 11.7 10 4.0-10.0 [facility] ([facility]) Red Blood Count 4.31 10 4.00-5.40 [facility] ([facility]) Mean Corpuscular Volume 101.4 fl 80.0-96.0 [facility] ([facility]) Hemoglobin 13.5 g/dL 12.0-15.5 [facility] Mean Corpuscular Hemoglobin 31.3 pg 27.0-33.0 [facility] ([facility]) Hematocrit 43.7 % 36.0-47.0 [facility] Platelet Count, Automated 181 10 150-450 [facility] ([facility]) Red Cell Distribution Width 13.4 % 11.5-14.5 [facility] ([facility]) Mean Corpuscular HGB Conc 30.9 g/dL 32.0-36.5 [facility] ([facility]) Neutrophils % 83.4 % 36.0-66.0 [facility] Lymph % 9.5 % 24.0-44.0 [facility] Park % 4.9 % 0.0-5.0 [facility] Eos % 1.3 % 0.0-3.0 [facility] Nucleated Red Blood Cell % 0.0 % 0-0 [facility] ([facility]) Immature Granulocyte % 0.5 % 0-3.0 [facility] ([facility]) Baso % 0.4 % 0.0-1.0 [facility] Lymph # 1.1 10 1.5-5.0 [facility] Neutrophils # 9.8 10 1.5-8.5 [facility] Park # 0.6 10 0.0-0.8 [facility] Baso # 0.1 10 0.0-0.2 [facility] Eos # 0.2 10 0.0-0.5 [facility] ID Date Data Source [id number] 05/27/2020 07:42:00 AM EDT [facility] Name Value Range Interpretation Code Description Data Meseret rce(s) Supporting Document(s) Prothrombin Time 16.2 s 11.8-14.0 [facility] ([facility]) Inr 1.28 [facility] ([facility]) THERAPUTIC HUMAN INR VALUES INDICATIONS NORMAL RANGES PROPHYLAXIS/TREATMENT OF: VENOUS THROMBOSIS 2.0-3.0 PULMONARY EMBOLISM 2.0-3.0 PREVENTION OF SYSTEMIC EMBOLISM FROM: TISSUE HEART VALVES 2.0-3.0 ACUTE MYOCARDIAL INFARCTION 2.0-3.0 VALVULAR HEART DISEASE 2.0-3.0 ATRIAL FIBRILLATION 2.0-3.0 MECHANICAL VALVES(HIGH RISK) 2.5-3.5 RECURRENT MYOCARDIAL INFARCTION 2.5-3.5 ID Date Data Source [id number] 05/27/2020 07:42:00 AM EDT [facility] ([facility]) Name Value Range Interpretation Code Description Data [facility] rce(s) Supporting Document(s) CPK Creatine Phosphokinase 32 U/L 26-192 [facility] ([facility]) CK-MB Value Mass 1.1 ng/mL [facility] ([facility]) Troponin I Laboratory test result [facility] ([facility]) <content>Troponin I Reference Interval f or Siemens Bertram LOCI:</content>
<content></content>
<content>99th Percentile= 0.00-0.045 ng/ml</content>
<content></content>
<content>Risk Stratification:</content>
<content><= 0.10 ng/ml Decreased Risk for Adverse Clinical</content>
<content>Events.</content>
<content>0.10-1.50 ng/ml Increased Risk for Adverse Clinical</content>
<content>Events. Evaluation of additional</content>
<content>criterion and/or repeat testing in 2-6</content>
<content>hours is suggested to rule out myocardial</content>
<content>damage.</content>
<content>>= 1.50 ng/ml Indicative of Myocardial Injury.</content>
<content></content> MB/CK Relative Index 3.44 [facility] ([facility]) <content>DIAGNOSIS CRITERIA</content>
<content>MMB ng/ml Relative Index (RI)</content>
<content>NON-AMI < or = 5 N/A</content>
<content>MEYER ZONE > 5 < or = 4</content>
<content>AMI > 5 > 4</content>
<content></content> ID Date Data Source [id number] 05/27/2020 07:42:00 AM EDT [facility] ([facility]) Name Value Range Interpretation Code Description Data Meseret rce(s) Supporting Document(s) Alt/SGPT 11 U/L 12-78 [facility] ([facility]) Ast/Sgot 10 U/L 7-37 [facility] ([facility]) Alkaline Phosphatase 79 U/L 45-117 [facility] ([facility]) Bilirubin,Total 1.1 mg/dL 0.2-1.0 [facility] ([facility]) Total Protein 6.5 GM/DL 6.4-8.2 [facility] ([facility]) Bilirubin,Direct 0.4 mg/dL 0.0-0.2 [facility] ([facility]) Albumin/Globulin Ratio 1.0 1.2-2.2 [facility] ([facility]) Albumin 3.3 GM/DL 3.2-5.2 [facility] ([facility]) ID Date Data Source [id number] 05/27/2020 07:42:00 AM EDT [facility] ([facility]) Name Value Range Interpretation Code Description Data Meseret rce(s) Supporting Document(s) Blood Urea Nitrogen 15 mg/dL 7-18 [facility] ([facility]) Creatinine For GFR 0.69 mg/dL 0.55-1.30 [facility] ([facility]) Glucose, Fasting 118 mg/dL 70-100 [facility] ([facility]) Glomerular Filtration Rate Laboratory test result [facility] ([facility]) <content>Units are mL/min/1.73 m2</content>
<content></content>
<content>Chronic Kidney Disease Staging per NKF:</content>
<content></content>
<content>Stage I & II GFR >=60 Normal to Mildly Decreased</content>
<content>Stage III GFR 30- 59 Moderately Decreased</content>
<content>Stage IV GFR 15-29 Severely Decreased</content>
<content>Stage V GFR <15 Very Little GFR Left</content>
<content>ESRD GFR <15 on OXYGEN SYSTEM TESTER</content>
<content></content> Sodium Level 142 meq/L 136-145 [facility] ([facility]) Potassium Serum 3.8 meq/L 3.5-5.1 [facility] ([facility]) Calcium Level 9.0 mg/dL 8.8-10.2 [facility] ([facility]) Carbon Dioxide Level 42 meq/L 21-32 [facility] ([facility]) Chloride Level 98 meq/L 98-107 [facility] ([facility]) Anion Gap 2 meq/L 8-16 [facility]) ID Date Data Source [id number] 05/27/2020 07:42:00 AM EDT [facility] Name Value Range Interpretation Code Description Data Meseret rce(s) Supporting Document(s) Natriuretic peptide.B prohormone N-Terminal [Mass/volu me] in Serum or Plasma 2410 pg/mL [facility] ([facility] ) ID Date Data Source [id number] 05/27/2020 07:42:00 AM EDT [facility] ([facility]) Name Value Range Interpretation Code Description Data Meseret rce(s) Supporting Document(s) Respiratory Panel Laboratory test result [facility] ([facility]) This respiratory PCR panel detects Influ [...] - SARS-CoV-2 (COVID19) ID Date Data Source [id number] 02/23/2020 04:13:00 PM EDT [facility] Name Value Range Interpretation Code Description Data Meseret rce(s) Supporting Document(s) C reactive protein [Mass/volume] in Serum or Plasma by High sensitivity method 4.54 mg/dL 0.00-0.30 [facility] Urate [Mass/volume] in Serum or Plasma 7.8 mg/dL 2.6-6.0 [facility] ID Date Data Source [id number] 02/23/2020 04:13:00 PM EDT [facility] Name Value Range Interpretation Code Description Data Meesret rce(s) Supporting Document(s) Creatinine For GFR 0.62 mg/dL 0.55-1.30 [facility] ([facility]) Glucose, Fasting 103 mg/dL 70-100 [facility] ([facility]) Blood Urea Nitrogen 17 mg/dL 7-18 [facility] ([facility]) Glomerular Filtration Rate Laboratory test result [facility] ([facility]) <content>Units are mL/min/1.73 m2</content>
<content></content>
<content>Chronic Kidney Disease Staging per NKF:</content>
<content></content>
<content>Stage I & II GFR >=60 Normal to Mildly Decreased</content>
<content>Stage III GFR 30- 59 Moderately Decreased</content>
<content>Stage IV GFR 15-29 Severely Decreased</content>
<content>Stage V GFR <15 Very Little GFR Left</content>
<content>ESRD GFR <15 on OXYGEN SYSTEM TESTER</content>
<content></content> Chloride Level 101 meq/L 98-107 [facility] ([facility]) Sodium Level 144 meq/L 136-145 [facility] ([facility]) Potassium Serum 3.8 meq/L 3.5-5.1 [facility] ([facility]) Anion Gap 4 meq/L 8-16 [facility]) Calcium Level 8.2 mg/dL 8.8-10.2 [facility] ([facility]) Carbon Dioxide Level 39 meq/L 21-32 [facility] ([facility]) ID Date Data Source [id number] 02/23/2020 04:13:00 PM EDT [facility] ([facility]) Name Value Range Interpretation Code Description Data Meseret rce(s) Supporting Document(s) Erythrocyte sedimentation rate by Westergren method 25 mm/hr 0-30 [facility] ([facility]) ID Date Data Source [id number] 02/23/2020 04:13:00 PM EDT [facility] ([facility]) Name Value Range Interpretation Code Description Data Meseret rce(s) Supporting Document(s) White Blood Count 13.0 10 4.0-10.0 [facility] ([facility]) Hemoglobin 13.6 g/dL 12.0-15.5 [facility] Red Blood Count 4.41 10 4.00-5.40 [facility] ([facility]) Hematocrit 44.2 % 36.0-47.0 [facility] Mean Corpuscular Hemoglobin 30.8 pg 27.0-33.0 ME [facility] ([facility]) Red Cell Distribution Width 13.2 % 11.5-14.5 CA [facility] ([facility]) Mean Corpuscular Volume 100.2 fl 80.0-96.0 [facility] ([facility]) Mean Corpuscular HGB Conc 30.8 g/dL 32.0-36.5 [facility] NT ([facility]) Platelet Count, Automated 183 10 150-450 [facility] ([facility]) Neutrophils % 82.2 % 36.0-66.0 [facility] ([facility]) Lymph % 9.1 % 24.0-44.0 [facility] Baso % 0.4 % 0.0-1.0 [facility] Park % 6.6 % 0.0-5.0 [facility] [facility] Eos % 1.3 % 0.0-3.0 [facility] ([place] [facility]) Neutrophils # 10.7 10 1.5-8.5 [facility] ([facility]) Immature Granulocyte % 0.4 % 0-3.0 [facility] ([facility]) Lymph # 1.2 10 1.5-5.0 [facility] [facility]) Nucleated Red Blood Cell % 0.0 % 0-0 MED [facility] ([facility]) Baso # 0.1 10 0.0-0.2 [facility] ([facility] [facility]) Park # 0.9 10 0.0-0.8 [facility] [facility]) Eos # 0.2 10 0.0-0.5 [facility] ([facility] [place] [facility]) Procedure Vital Signs ID Date Data Source UNK Name Value Range Interpretation Code Description Data Source(s) Body mass index (BMI) [Ratio] 39.7 kg/m2 39.7 k g/m2 [facility] Body weight 190.00 [lb_av] 190.00 [lb_av] MED[facility] T ([facility]) Body height 58 [in_i] 58 [in_i] [facility] ([facility]) 4'10" Heart rate 82 /min 82 /min [facility] ([facility]) Diastolic blood pressure 70 mm[Hg] 70 mm[Hg] [facility] ([facility]) Systolic blood pressure 120 mm[Hg] 120 mm[Hg] M [facility]ENT ([facility]) Body mass index (BMI) [Ratio] 39.1 kg/m2 39.1 k g/m2 [facility] ([facility]) Oxygen saturation in Arterial blood by Pulse oximetry 96 % 96 % [facility] ([facility]) With O2 Body weight 187.00 [lb_av] 187.00 [lb_av] VALENCIA Peraza ([facility]) Body height 58 [in_i] 58 [in_i] PAULINA ([facility]) 4'10" Heart rate 89 /min 89 /min PAUL[facility] ([facility]) Diastolic blood pressure 70 mm[Hg] 70 mm[Hg] PAULINA ([facility]) Systolic blood pressure 130 mm[Hg] 130 mm[Hg] Rudi LEE ([facility])
[2020-10-22] MEDS ORDERED: ONDANSETRON 4 MG ORAL DISINTEGRATING TAB SL PRN (16:15)
[2020-10-22] MEDS ORDERED: MAALOX 30 ML SUSP *UDC PO PRN (16:15)
[2020-10-22] MEDS ORDERED: SIMETHICONE 80MG CHEW TAB PO PRN (16:15)
[2020-10-22] MEDS ORDERED: BISACODYL 10 MG SUPP PR PRN (16:15)
[2020-10-22] MEDS ORDERED: MECLIZINE 12.5 MG TAB PO PRN (16:15)
[2020-10-22] MEDS ORDERED: PILL CUTTER 1 EACH XX PRN (17:00)
[2020-10-22] MEDS ORDERED: FUROSEMIDE 40 MG TAB PO SCH (17:00)
[2020-10-22] MEDS: SUCRALFATE 1 GM TAB PO SCH ×2 (17:16→21:41)
--- NOTE | 2020-10-22 17:48 | HPEPDOC ---
[employer] [employer] Note DATE OF ADMISSION: 10-21-20 DATE OF SERVICE: 10-21-20 TIME OF ADMISSION: Please refer to physician's admission order. SOURCE OF ADMISSION INFORMATION: [facility] record, patient CHIEF COMPLAINT: COPD and CHF exacerbation HISTORY OF PRESENT ILLNESS: 75 F pmh vertigo, COPD on home 02, LEANNE not-compliant with CPAP, chronic hypoxic hypercarbic RF, Afib, diastolic CHF, pulmonary HTN, morbid obesity who presented to [facility] ED on 10-18-20 with worsening shortness of breath with worsening cough with CXR negative for infiltrate.She was treated for a COPD exacerbation with breathing treatments, and IV Solumedrol. She was also found to have an elevated BNP and was given IV diuretics. She had notable impairments in ambulation and ADLs, was transitioned to po steroids, and deemed medically appropriate for discharge to ARU. REVIEW OF SYSTEMS: The following is a completed review of systems and has been reviewed. Review of systems otherwise unremarkable. PAIN: Patient self reports no pain EYES: No recent vision changes EARS, NOSE, & THROAT: No throat pain, or dysphagia, or rhinorrhea, right ear fullness and +sinus pressure CARDIOVASCULAR: Denies chest pain or palpitations PULMONARY: +shortness of breath with exertion GASTROINTESTINAL: Denies constipation/diarrhea GENITOURINARY: +incontinence, denies dysuria MUSCULOSKELETAL: generalized weakness NEUROLOGICAL:chronic dizziness HEMATOLOGICAL:denies easy bruising SKIN: no rash PSYCHIATRIC: Unremarkable All other review of systems found to be negative. PAST MEDICAL HISTORY: as per HPI PAST SURGICAL HISTORY: appendectomy, bilateral tubal ligation, benign neck tumor, bilateral Carpal tunnel surgery, umbilical herniography, left ankle and hand fracture ALLERGIES: Please see below. MEDICATIONS: Please see below. FAMILY HISTORY: lung cancer, kidney failure, HTN SOCIAL HISTORY: former smoker, no etoh/illicit drugs DIET:2gram sodium fluid restrict PHYSICAL EXAMINATION: VITAL SIGNS: Please see below. GENERAL: Pleasant and cooperative. No acute distress. HEENT: PERRL. Extraocular movements intact. Clear conjunctiva, +horizontal nystagmus CARDIOVASCULAR: Regular rate and rhythm. No murmurs, rubs, or gallops LUNGS: Clear to auscultation bilaterally. No wheezes. No rhonchi, +crackles RLL ABDOMEN: Soft, nontender, nondistended. Positive bowel sounds. Normal active bowel sounds NEUROLOGICAL: Alert and oriented times three. Cranial nerves II through XII grossly intact. Sensation grossly intact EXTREMITIES: 5\5 strength bilateral upper extremities. 5\5 strength right lower extremity. 5/5 strength in left lower extremity. SKIN: no sacral ulcers LABORATORY DATA: Please see below. IMAGING:Imaging documentation personally reviewed by record FUNCTIONAL STATUS: Premorbid: Independent with all activities of daily life as well as mobility On Admission: contact guard-min assist for bed mobility functional transfers, ambulation with RW x 15 ft GOALS: Mod-I household distances, functional transfers, toileting, dressing, ba thing ASSESSMENT:75-year-old F with past medical history of COPD and CHF who presents status post COPD and CHF exacerbation PLAN: 1. Rehab- PT/OT strengthen/stretch/maintain ROM all 4 limbs, teach energy conservation, consider repeat vestibular eval 2. Cardiac- hx of diastolic CHF with recent exacerbation, fluid restrict, daily weights, lasix and HCTZ- medicine consulted to assist in overall management -Afib on Eliquis and metoprolol 3. Neuro- hx of vertigo reporting lightheadedness more than room spinning, ordered meclizine prn and zofran odt prn 4. Resp- hx of COPD on home 02 with recent exacerbation, c/u prednisone taper and duonebs, spiriva -LEANNE non-compliant with CPAP and with moderate pulm htn, c/u 02 -flonase, nasal saline for nasal congestion 5. GI ppx- protonix BID and sucralfate for additional protection from bleed while on steroids 6. Psych- patient on valium for anxiety 7. Pain- percocet, hold for RR <12 or AMS 8. DVT ppx- on eliquis 9. Dispo- TBD POST ADMISSION PHYSICIAN EVALUATION: Medical and functional status: Description of medical status, medical assessment: As above. Rehabilitation diagnosis and current and prior cold morbid medical conditions as above. Risk of complications and plans to mitigate them as above. Description of functional status current status is as above. Prior status as above. Status compared to preadmission: There are no clinically significant differences between the patient's current status and the information described on the preadmission screening document. Treatment plan anticipated: Treatment plan is as described above. Required disciplines including physical therapy, occupational therapy, others as noted above Intensity of services: 3 hours a day, 6 days a week. Special considerations: There are no specific special or safety considerations that would likely preclude immediate implementation of an intensive rehabilitation program or subsequently influence the plan of care ATTESTATION: Considering all the information above, it is my best judgment that this patient requires intensive rehabilitation therapy as described above and an inpatient hospital environment due to the complexity of nursing, medical, and rehabilitation needs required by the patient. Furthermore, this patient can reasonably be expected to participate in an benefit from an inpatient rehabilitation stay with an interdisciplinary team approach to the delivery of rehabilitation care under the direction and supervision of rehabilitation physician PROGNOSIS:good ESTIMATED LENGTH OF STAY:10-14 days. PROJECTED DISCHARGE DESTINATION: Home with family support and any durable medical equipment required to increase functional safety and mobility TIME SPENT COUNSELING AND COORDINATING INITIAL CARE: Greater than 70 minutes. Vital Signs Vital Sign - Last 24 Hours 10/22/20 14:21 Temp 98.2 Pulse 94 Resp 18 B/P (MAP) 146/73 (97) Pulse Ox 96 O2 Delivery Nasal Cannula O2 Flow Rate 2.0 Home Medications Scheduled Apixaban (Eliquis) 5 Mg Tablet, 5 MG PO BID, (Reported) Ascorbic Acid (Ascorbic Acid) 500 Mg Tablet, 500 MG PO DAILY, (Reported) Cholecalciferol (Vitamin D3) (Vitamin D3) 1,000 Unit Tablet, 2,000 UNITS PO DAILY, (Reported) Diazepam (Valium) 5 Mg Tab, 5 MG PO TID, (Reported) Furosemide (Lasix) 40 Mg Tablet, 40 MG PO BID Hydrochlorothiazide (Hydrochlorothiazide) 25 Mg Tablet, 25 MG PO DAILY, (Reported) Magnesium Oxide (Magnesium) 400 Mg Capsule, 400 MG PO DAILY, (Reported) Metoprolol Tartrate (Metoprolol Tartrate) 25 Mg Tablet, 25 MG PO BID, (Reported) Potassium Chloride (Potassium Chloride) 10 Meq Tab.er.prt, 10 MEQ PO DAILY, (Reported) Prednisone (Prednisone) 10 Mg Tablet, 10 MG PO TAPER Take 4 tabs daily x 3 days, then 3 tabs daily x 3 days, then 2 tabs daily x 3 days, then 1 tab daily x 3 days and stop Tiotropium [place] (Spiriva) 18 Mcg Cap.w.dev, 1 CAP INH DAILY, (Reported) Vitamin E (Vitamin E) 400 Unit Capsule, 400 UNIT PO DAILY, (Reported) Scheduled PRN Albuterol Sulf (Albuterol Sulfate) 2.5 Mg/3 Ml Nebu, 1 VIAL NEB Q4H PRN for SOB/WHEEZING, (Reported) Albuterol Sulfate (Proair Hfa) 108 Mcg/Act Aer, 2 PUFF INH QID PRN for SHORTNESS OF BREATH, (Reported) Oxycodone HCl/Acetaminophen (Percocet 7.5-325 mg Tablet) 1 Each Tablet, 1 TAB PO TID PRN for PAIN, (Reported) Allergies Coded Allergies: adhesive tape (Verified Allergy, Intermediate, RASH, 12/20/18) latex (Verified Allergy, Intermediate, RASH, 12/20/18) azithromycin (Unverified Allergy, Unknown, Unknown, 10/22/20) Listed under diet A-FIB/CHADSVASC A-FIB History Current/History of A-Fib/PAF?: Yes Current PO Anticoag Therapy: Yes CHIRAG LARA MD Oct 22, 2020 17:48
[2020-10-22 20:00] VITALS: BP 131/67
[2020-10-22] MEDS: IPRATROPIUM 0.5MG/ALBUTEROL 2.5MG INH SOL UD 3ML (DUONEB) NEB SCH (20:12)
[2020-10-22] MEDS: REMEDY PHYTOPLEX Z-GUARD PASTE 113GM TUBE (FROM STOREROOM PRODUCT) TOP SCH (21:00)
[2020-10-22] MEDS: SODIUM CHLORIDE NASAL 0.65% SPRAY BTL (OCEAN) SCH (21:39)
[2020-10-22] MEDS: FLUTICASONE PROP 0.05% NASAL SPRAY 16 GM (FLONASE) NARES SCH (21:39)
[2020-10-22] MEDS: SENNA 8.6 MG TAB (SENOKOT) PO SCH (21:41)
[2020-10-22] MEDS: APIXABAN 5 MG TAB (ELIQUIS) PO SCH (21:41)
[2020-10-22] MEDS: PANTOPRAZOLE 40MG TAB (PROTONIX) PO SCH (21:41)
[2020-10-22] MEDS: DOCUSATE SODIUM 100MG CAPSULE PO SCH (21:41)
[2020-10-22] MEDS: METOPROLOL TART 25 MG TABLET PO SCH (21:42)
[2020-10-22] MEDS: diazePAM 2 MG TAB PO SCH (21:43)
[2020-10-22] MEDS: CARBAMIDE PEROXIDE 6.5% OTIC SOLN 15ML AD SCH (21:44)
[2020-10-22] MEDS: VANICREAM MOISTURIZING SKIN CREAM 113GM TUBE TOP SCH (21:45)
[2020-10-22] MEDS: PERCOCET 5MG/325MG TAB PO PRN (21:51)
[2020-10-23] MEDS: IPRATROPIUM 0.5MG/ALBUTEROL 2.5MG INH SOL UD 3ML (DUONEB) NEB SCH ×4 (01:20→19:44)
[2020-10-23] MEDS: RAMELTEON 8 MG TAB (ROZEREM) PO PRN (03:40)
[2020-10-23 05:14] VITALS: BP 130/77
[2020-10-23] MEDS: PERCOCET 5MG/325MG TAB PO PRN ×2 (05:42→18:03)
[2020-10-23 06:51] LABS: BASO % 0.1 % (0.0-1.0); EOS % 0.1 % (0.0-3.0); HEMATOCRIT 48.2 % (36.0-47.0); HEMOGLOBIN 15.3 g/dl (12.0-15.5); LYMPH # 1.2 10^3/uL (1.5-5.0); LYMPH % 8.7 % (24.0-44.0); MEAN CORPUSCULAR HEMOGLOBIN 30.8 pg (27.0-33.0); MEAN CORPUSCULAR HGB CONC 31.7 g/dl (32.0-36.5); MEAN CORPUSCULAR VOLUME 97.2 fl (80.0-96.0); MONO # 1.2 10^3/uL (0.0-0.8); MONO % 8.4 % (0.0-5.0); NEUTROPHILS # 11.3 10^3/uL (1.5-8.5); NEUTROPHILS % 82.3 % (36.0-66.0); PLATELET COUNT, AUTOMATED 173 10^3/uL (150-450); RED BLOOD COUNT 4.96 10^6/uL (4.00-5.40)
[2020-10-23 06:52] LABS: WHITE BLOOD COUNT 13.8 10^3/uL (4.0-10.0)
[2020-10-23 07:28] LABS: ALBUMIN 3.4 GM/DL (3.2-5.2); BILIRUBIN,TOTAL 1.1 MG/DL (0.2-1.0); CREATININE FOR GFR 1.27 MG/DL (0.55-1.30); GLOMERULAR FILTRATION RATE 43.4 (>39); TOTAL PROTEIN 6.6 GM/DL (6.4-8.2)
[2020-10-23] MEDS: SUCRALFATE 1 GM TAB PO SCH ×4 (07:30→20:35)
[2020-10-23] MEDS: TIOTROPIUM INHALER/CAPSULE (SPIRIVA) INH SCH (07:39)
[2020-10-23] MEDS: CARBAMIDE PEROXIDE 6.5% OTIC SOLN 15ML AD SCH ×2 (09:00→20:36)
[2020-10-23] MEDS: REMEDY PHYTOPLEX Z-GUARD PASTE 113GM TUBE (FROM STOREROOM PRODUCT) TOP SCH ×3 (09:00→20:36)
[2020-10-23] MEDS ORDERED: POTASSIUM CHLORIDE 10 MEQ SR TABLET PO SCH (09:00)
[2020-10-23] MEDS: VANICREAM MOISTURIZING SKIN CREAM 113GM TUBE TOP SCH ×2 (09:00→20:35)
[2020-10-23] MEDS: predniSONE 50 MG TAB PO SCH (09:10)
[2020-10-23] MEDS: DOCUSATE SODIUM 100MG CAPSULE PO SCH ×2 (09:10→20:35)
[2020-10-23] MEDS: ASCORBIC ACID 500 MG TAB PO SCH (09:10)
[2020-10-23] MEDS: MAGNESIUM OXIDE 400MG TAB (MAG-OX) PO SCH (09:10)
[2020-10-23] MEDS: diazePAM 2 MG TAB PO SCH ×3 (09:10→20:35)
[2020-10-23] MEDS: PANTOPRAZOLE 40MG TAB (PROTONIX) PO SCH ×2 (09:11→20:35)
[2020-10-23] MEDS: METOPROLOL TART 25 MG TABLET PO SCH ×2 (09:11→20:34)
[2020-10-23] MEDS: VITAMIN D 1,000 INTERNATIONAL UNITS TABLET PO SCH (09:11)
[2020-10-23] MEDS: APIXABAN 5 MG TAB (ELIQUIS) PO SCH ×2 (09:12→20:35)
[2020-10-23] MEDS: POTASSIUM CHLORIDE 10 MEQ SR TABLET PO SCH (09:12)
[2020-10-23] MEDS: SODIUM CHLORIDE NASAL 0.65% SPRAY BTL (OCEAN) SCH ×3 (09:14→20:35)
[2020-10-23] MEDS: FLUTICASONE PROP 0.05% NASAL SPRAY 16 GM (FLONASE) NARES SCH ×2 (09:15→20:35)
[2020-10-23] MEDS ORDERED: POTASSIUM CHLORIDE 10 MEQ SR TABLET PO ONE ×2 (12:00→16:00)
[2020-10-23 14:00] VITALS: BP 132/70
--- NOTE | 2020-10-23 14:04 | IPNPDOC ---
Text Note Date of Service The patient was seen on 10/23/20. NOTE Subjective: Patient has no new medical complaints. Objective: VITAL SIGNS: Please see below. GENERAL APPEARANCE: Patient is awake, alert and oriented. comfortable in bed HEENT: Atraumatic. Normocephalic. Eyes are nonicteric. Trachea is midline. Mucous membranes are pink and moist. NC in place CARDIOVASCULAR: +S1S2 LUNGS: CTA B/L ABDOMEN: soft, obese, NT, +BS EXTREMITIES: Trace bilateral lower extremity edema. A/P: 75F with PMHx including chronic hypoxemic hypercarbic respiratory failure on 2 L nasal cannula at baseline COPD, HTN, pulmonary hypertension and HFpEF, [facility] for [facility]B over the past 1-2 days. Patient's imaging was negative for any acute changes. Patient was admitted for COPD exacerbation. #HFpEF - compensated - will consider decreasing diuretic therapy - fluid restriction #LEANNE - non-compliant with CPAP #COPD - respiratory treatments - supplemental oxygen - 2L at baseline #Pulmonary hypertension likely 2/2 to uncontrolled LEANNE from noncompliance with CPAP -See above #Atrial fibrillation -HR controlled -C/w BB, Eliquis BID #Generalized Anxiety Disorder -Continue Diazepam #Hypertension -Stable -Continue Lopressor , lasix , HCTZ VS,Fishbone, I+O VS, Fishbone, I+O Laboratory Tests 10/23/20 05:54 Vital Signs Date Time Temp Pulse Resp B/P (MAP) Pulse Ox O2 Delivery O2 Flow Rate FiO2 10/23/20 09:11 88 130/77 10/23/20 06:14 18 Nasal Cannula 2.0 10/23/20 05:14 97.2 94 I&O- Last 24 Hours up to 6 AM 10/23/20 06:00 Intake Total 320 ml Balance 320 ml ANIBAL HUTCHINSON MD Oct 23, 2020 14:04
[2020-10-23 20:00] VITALS: BP 159/79
[2020-10-23] MEDS: SENNA 8.6 MG TAB (SENOKOT) PO SCH (20:34)
[2020-10-24] MEDS: RAMELTEON 8 MG TAB (ROZEREM) PO PRN ×2 (00:27→20:36)
[2020-10-24] MEDS: PERCOCET 5MG/325MG TAB PO PRN ×2 (00:27→12:45)
[2020-10-24] MEDS: IPRATROPIUM 0.5MG/ALBUTEROL 2.5MG INH SOL UD 3ML (DUONEB) NEB SCH ×4 (00:52→19:28)
[2020-10-24 06:00] VITALS: BP 150/90
[2020-10-24] MEDS: TIOTROPIUM INHALER/CAPSULE (SPIRIVA) INH SCH (07:30)
[2020-10-24] MEDS: SUCRALFATE 1 GM TAB PO SCH ×4 (07:50→20:36)
[2020-10-24] MEDS: diazePAM 2 MG TAB PO SCH (08:23)
[2020-10-24] MEDS: PANTOPRAZOLE 40MG TAB (PROTONIX) PO SCH ×2 (08:24→20:36)
[2020-10-24] MEDS: ASCORBIC ACID 500 MG TAB PO SCH (08:24)
[2020-10-24] MEDS: POTASSIUM CHLORIDE 10 MEQ SR TABLET PO SCH (08:24)
[2020-10-24] MEDS: DOCUSATE SODIUM 100MG CAPSULE PO SCH ×2 (08:24→20:37)
[2020-10-24] MEDS: MAGNESIUM OXIDE 400MG TAB (MAG-OX) PO SCH (08:24)
[2020-10-24] MEDS: METOPROLOL TART 25 MG TABLET PO SCH ×2 (08:25→20:37)
[2020-10-24] MEDS: APIXABAN 5 MG TAB (ELIQUIS) PO SCH ×2 (08:25→20:37)
[2020-10-24] MEDS: VITAMIN D 1,000 INTERNATIONAL UNITS TABLET PO SCH (08:25)
[2020-10-24] MEDS: FLUTICASONE PROP 0.05% NASAL SPRAY 16 GM (FLONASE) NARES SCH ×2 (08:26→20:39)
[2020-10-24] MEDS: CARBAMIDE PEROXIDE 6.5% OTIC SOLN 15ML AD SCH ×2 (08:26→20:39)
[2020-10-24] MEDS: SODIUM CHLORIDE NASAL 0.65% SPRAY BTL (OCEAN) SCH ×3 (08:26→20:39)
[2020-10-24] MEDS: VANICREAM MOISTURIZING SKIN CREAM 113GM TUBE TOP SCH ×2 (08:27→20:39)
[2020-10-24] MEDS: predniSONE 50 MG TAB PO SCH (08:31)
[2020-10-24] MEDS: REMEDY PHYTOPLEX Z-GUARD PASTE 113GM TUBE (FROM STOREROOM PRODUCT) TOP SCH ×3 (08:32→20:39)
[2020-10-24 08:49] LABS: CALCIUM LEVEL 8.9 MG/DL (8.8-10.2); CREATININE FOR GFR 1.04 MG/DL (0.55-1.30); GLOMERULAR FILTRATION RATE 54.7 (>39); POTASSIUM SERUM 3.8 MEQ/L (3.5-5.1)
[2020-10-24 14:00] VITALS: BP 166/82
[2020-10-24] MEDS: diazePAM 5MG TABLET PO SCH ×2 (16:26→20:37)
[2020-10-24 20:00] VITALS: BP 166/82
[2020-10-24] MEDS: SENNA 8.6 MG TAB (SENOKOT) PO SCH (20:36)
[2020-10-25] MEDS: PERCOCET 5MG/325MG TAB PO PRN ×2 (01:35→21:02)
[2020-10-25] MEDS: IPRATROPIUM 0.5MG/ALBUTEROL 2.5MG INH SOL UD 3ML (DUONEB) NEB SCH ×4 (02:39→18:05)
[2020-10-25 05:59] VITALS: BP 158/91
[2020-10-25] MEDS: TIOTROPIUM INHALER/CAPSULE (SPIRIVA) INH SCH (07:23)
[2020-10-25] MEDS: SUCRALFATE 1 GM TAB PO SCH ×4 (08:13→20:53)
[2020-10-25] MEDS: predniSONE 50 MG TAB PO SCH (08:13)
[2020-10-25] MEDS: diazePAM 5MG TABLET PO SCH ×3 (08:13→20:54)
[2020-10-25] MEDS: APIXABAN 5 MG TAB (ELIQUIS) PO SCH ×2 (08:14→20:53)
[2020-10-25] MEDS: MAGNESIUM OXIDE 400MG TAB (MAG-OX) PO SCH (08:14)
[2020-10-25] MEDS: PANTOPRAZOLE 40MG TAB (PROTONIX) PO SCH ×2 (08:14→20:53)
[2020-10-25] MEDS: POTASSIUM CHLORIDE 10 MEQ SR TABLET PO SCH (08:14)
[2020-10-25] MEDS: DOCUSATE SODIUM 100MG CAPSULE PO SCH ×2 (08:14→20:53)
[2020-10-25] MEDS: ASCORBIC ACID 500 MG TAB PO SCH (08:14)
[2020-10-25] MEDS: VITAMIN D 1,000 INTERNATIONAL UNITS TABLET PO SCH (08:15)
[2020-10-25] MEDS: METOPROLOL TART 25 MG TABLET PO SCH ×2 (08:15→20:54)
[2020-10-25] MEDS: CARBAMIDE PEROXIDE 6.5% OTIC SOLN 15ML AD SCH ×2 (08:16→20:55)
[2020-10-25] MEDS: FLUTICASONE PROP 0.05% NASAL SPRAY 16 GM (FLONASE) NARES SCH ×2 (08:17→20:55)
[2020-10-25] MEDS: SODIUM CHLORIDE NASAL 0.65% SPRAY BTL (OCEAN) SCH ×3 (08:17→20:55)
[2020-10-25] MEDS: REMEDY PHYTOPLEX Z-GUARD PASTE 113GM TUBE (FROM STOREROOM PRODUCT) TOP SCH ×3 (08:18→20:56)
[2020-10-25] MEDS: VANICREAM MOISTURIZING SKIN CREAM 113GM TUBE TOP SCH ×2 (08:19→20:56)
[2020-10-25 14:00] VITALS: BP 137/62
[2020-10-25 20:00] VITALS: BP 127/65
[2020-10-25] MEDS: SENNA 8.6 MG TAB (SENOKOT) PO SCH (20:53)
[2020-10-25] MEDS: RAMELTEON 8 MG TAB (ROZEREM) PO PRN (23:18)
[2020-10-25] MEDS: ACETAMINOPHEN TAB 650MG DOSE (2X325MG) PO PRN (23:19)
[2020-10-26] MEDS: IPRATROPIUM 0.5MG/ALBUTEROL 2.5MG INH SOL UD 3ML (DUONEB) NEB SCH ×4 (02:00→19:52)
[2020-10-26] MEDS: LIDOCAINE 5% (LIDODERM) PATCH TD SCH (02:08)
[2020-10-26] MEDS: PERCOCET 5MG/325MG TAB PO PRN ×3 (03:49→21:07)
[2020-10-26 05:54] VITALS: BP 157/75
[2020-10-26] MEDS: SUCRALFATE 1 GM TAB PO SCH ×4 (07:51→21:05)
[2020-10-26 07:58] LABS: BASO % 0.2 % (0.0-1.0); EOS # 0.1 10^3/uL (0.0-0.5); EOS % 0.3 % (0.0-3.0); HEMATOCRIT 45.2 % (36.0-47.0); HEMOGLOBIN 13.8 g/dl (12.0-15.5); LYMPH # 2.2 10^3/uL (1.5-5.0); LYMPH % 12.7 % (24.0-44.0); MEAN CORPUSCULAR HEMOGLOBIN 30.4 pg (27.0-33.0); MEAN CORPUSCULAR HGB CONC 30.5 g/dl (32.0-36.5); MEAN CORPUSCULAR VOLUME 99.6 fl (80.0-96.0); MONO # 1.3 10^3/uL (0.0-0.8); MONO % 7.3 % (0.0-5.0); NEUTROPHILS # 13.9 10^3/uL (1.5-8.5); NEUTROPHILS % 78.8 % (36.0-66.0); PLATELET COUNT, AUTOMATED 194 10^3/uL (150-450); RED BLOOD COUNT 4.54 10^6/uL (4.00-5.40)
[2020-10-26] MEDS: TIOTROPIUM INHALER/CAPSULE (SPIRIVA) INH SCH (08:00)
[2020-10-26 08:07] LABS: WHITE BLOOD COUNT 17.6 10^3/uL (4.0-10.0)
[2020-10-26 08:12] LABS: CREATININE FOR GFR 1.23 MG/DL (0.55-1.30); GLOMERULAR FILTRATION RATE 45.1 (>39)
[2020-10-26 08:13] LABS: CALCIUM LEVEL 8.8 MG/DL (8.8-10.2)
[2020-10-26] MEDS: DOCUSATE SODIUM 100MG CAPSULE PO SCH ×2 (08:55→21:05)
[2020-10-26] MEDS: POTASSIUM CHLORIDE 10 MEQ SR TABLET PO SCH (08:56)
[2020-10-26] MEDS: diazePAM 5MG TABLET PO SCH ×3 (08:56→21:05)
[2020-10-26] MEDS: PANTOPRAZOLE 40MG TAB (PROTONIX) PO SCH ×2 (08:57→21:06)
[2020-10-26] MEDS: MAGNESIUM OXIDE 400MG TAB (MAG-OX) PO SCH (08:57)
[2020-10-26] MEDS: ASCORBIC ACID 500 MG TAB PO SCH (08:57)
[2020-10-26] MEDS: METOPROLOL TART 25 MG TABLET PO SCH ×2 (08:57→21:06)
[2020-10-26] MEDS: APIXABAN 5 MG TAB (ELIQUIS) PO SCH ×2 (08:58→21:05)
[2020-10-26] MEDS: VITAMIN D 1,000 INTERNATIONAL UNITS TABLET PO SCH (08:58)
[2020-10-26] MEDS: predniSONE 20 MG TAB PO SCH (08:58)
[2020-10-26] MEDS: FLUTICASONE PROP 0.05% NASAL SPRAY 16 GM (FLONASE) NARES SCH ×2 (08:59→21:05)
[2020-10-26] MEDS: CARBAMIDE PEROXIDE 6.5% OTIC SOLN 15ML AD SCH (08:59)
[2020-10-26] MEDS: SODIUM CHLORIDE NASAL 0.65% SPRAY BTL (OCEAN) SCH ×3 (09:00→21:05)
[2020-10-26] MEDS ORDERED: LIDOCAINE 5% (LIDODERM) PATCH TD SCH (09:00)
[2020-10-26] MEDS: REMEDY PHYTOPLEX Z-GUARD PASTE 113GM TUBE (FROM STOREROOM PRODUCT) TOP SCH ×3 (09:05→21:07)
[2020-10-26] MEDS: VANICREAM MOISTURIZING SKIN CREAM 113GM TUBE TOP SCH ×2 (09:06→21:08)
[2020-10-26 14:00] VITALS: BP 118/63
[2020-10-26] MEDS: **NOTE PATIENT COMMENT** MISC XX SCH (14:00)
[2020-10-26 20:00] VITALS: BP 134/76
[2020-10-26] MEDS ORDERED: **NOTE PATIENT COMMENT** MISC XX SCH (21:00)
[2020-10-26] MEDS: SENNA 8.6 MG TAB (SENOKOT) PO SCH (21:05)
[2020-10-27] MEDS: IPRATROPIUM 0.5MG/ALBUTEROL 2.5MG INH SOL UD 3ML (DUONEB) NEB SCH ×4 (00:13→20:06)
[2020-10-27] MEDS: LIDOCAINE 5% (LIDODERM) PATCH TD SCH (02:00)
[2020-10-27] MEDS: PERCOCET 5MG/325MG TAB PO PRN ×2 (05:01→17:55)
[2020-10-27 05:15] VITALS: BP 120/64
[2020-10-27 06:59] LABS: BASO % 0.1 % (0.0-1.0); EOS # 0.1 10^3/uL (0.0-0.5); EOS % 0.4 % (0.0-3.0); HEMATOCRIT 46.3 % (36.0-47.0); HEMOGLOBIN 14.2 g/dl (12.0-15.5); LYMPH # 2.1 10^3/uL (1.5-5.0); LYMPH % 12.1 % (24.0-44.0); MEAN CORPUSCULAR HEMOGLOBIN 30.5 pg (27.0-33.0); MEAN CORPUSCULAR HGB CONC 30.7 g/dl (32.0-36.5); MEAN CORPUSCULAR VOLUME 99.4 fl (80.0-96.0); MONO # 1.2 10^3/uL (0.0-0.8); MONO % 7.2 % (0.0-5.0); NEUTROPHILS # 13.5 10^3/uL (1.5-8.5); NEUTROPHILS % 79.1 % (36.0-66.0); PLATELET COUNT, AUTOMATED 206 10^3/uL (150-450); RED BLOOD COUNT 4.66 10^6/uL (4.00-5.40); WHITE BLOOD COUNT 17.1 10^3/uL (4.0-10.0)
[2020-10-27] MEDS: REMEDY PHYTOPLEX Z-GUARD PASTE 113GM TUBE (FROM STOREROOM PRODUCT) TOP SCH ×3 (09:00→21:00)
[2020-10-27] MEDS: predniSONE 20 MG TAB PO SCH (09:19)
[2020-10-27] MEDS: VITAMIN D 1,000 INTERNATIONAL UNITS TABLET PO SCH (09:19)
[2020-10-27] MEDS: SUCRALFATE 1 GM TAB PO SCH ×4 (09:19→21:47)
[2020-10-27] MEDS: DOCUSATE SODIUM 100MG CAPSULE PO SCH ×2 (09:19→21:47)
--- NOTE | 2020-10-27 09:19 | IPNPDOC ---
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 REVIEW OF SYSTEMS: The following is a completed review of systems and has been reviewed. Review of systems otherwise unremarkable. PAIN: Patient self reports no pain EYES: No recent vision changes EARS, NOSE, & THROAT: No throat pain, or dysphagia, or rhinorrhea, right ear fullness and +sinus pressure (improved) CARDIOVASCULAR: Denies chest pain or palpitations PULMONARY: +shortness of breath with exertion GASTROINTESTINAL: Denies constipation/diarrhea GENITOURINARY: +incontinence, denies dysuria MUSCULOSKELETAL: generalized weakness NEUROLOGICAL:chronic dizziness HEMATOLOGICAL:denies easy bruising SKIN: no rash PSYCHIATRIC: Unremarkable All other review of systems found to be negative. PHYSICAL EXAMINATION: VITAL SIGNS: Please see below. GENERAL: Pleasant and cooperative. No acute distress. HEENT: PERRL. Extraocular movements intact. Clear conjunctiva, +horizontal nystagmus CARDIOVASCULAR: Regular rate and rhythm. No murmurs, rubs, or gallops LUNGS: Clear to auscultation bilaterally. No wheezes. No rhonchi, +crackles RLL ABDOMEN: Soft, nontender, nondistended. Positive bowel sounds. Normal active bowel sounds NEUROLOGICAL: Alert and oriented times three. Cranial nerves II through XII grossly intact. Sensation grossly intact EXTREMITIES: 5\5 strength bilateral upper extremities. 5\5 strength right lower extremity. 5/5 strength in left lower extremity. +mild LE edema SKIN: no sacral ulcers LABORATORY DATA: Please see below. ASSESSMENT:75-year-old F with past medical history of COPD and CHF who presents status post COPD and CHF exacerbation PLAN: 1. Rehab- PT/OT strengthen/stretch/maintain ROM all 4 limbs, teach energy conservation 2. Cardiac- hx of diastolic CHF with recent exacerbation, fluid restrict, daily weights, will add back low dose lasix for LE edema and c/u HCTZ- medicine consulted to assist in overall management -Afib on Eliquis and metoprolol 3. Neuro- hx of vertigo reporting lightheadedness more than room spinning, ordered meclizine prn and zofran odt prn 4. Resp- hx of COPD on home 02 with recent exacerbation, c/u prednisone taper and duonebs, spiriva -LEANNE non-compliant with CPAP and with moderate pulm htn, c/u 02 -flonase, nasal saline for nasal congestion 5. GI ppx- protonix BID and sucralfate for additional protection from bleed while on steroids 6. Psych- patient on valium for anxiety 7. Pain- percocet, hold for RR <12 or AMS 8. DVT ppx- on eliquis 9. Leukocytosis- from oral steroids, no fevers or signs of active infection 10. Dispo- 10-29-20 to home, progressing towards goals Allergies Coded Allergies: adhesive tape (Verified Allergy, Intermediate, RASH, 12/20/18) latex (Verified Allergy, Intermediate, RASH, 12/20/18) azithromycin (Unverified Allergy, Unknown, Unknown, 10/22/20) Listed under diet Vital Signs Vital Signs Date Time Temp Pulse Resp B/P (MAP) Pulse Ox O2 Delivery O2 Flow Rate FiO2 10/27/20 05:31 18 10/27/20 05:15 97.1 71 120/64 (82) 96 Nasal Cannula 2.0 Laboratory Data CBC/BMP Laboratory Tests 10/27/20 06:38 Labs 24H Laboratory Tests 2 10/27/20 06:38: Immature Granulocyte % (Auto) 1.1, Neutrophils (%) (Auto) 79.1H, Lymphocytes (%) (Auto) 12.1L, Monocytes (%) (Auto) 7.2H, Eosinophils (%) (Auto) 0.4, Basophils (%) (Auto) 0.1, Neutrophils # (Auto) 13.5H, Lymphocytes # (Auto) 2.1, Monocytes # (Auto) 1.2H, Eosinophils # (Auto) 0.1, Basophils # (Auto) 0.0, Nucleated Red Blood Cells % (auto) 0.0 Current Medications Current Medications Current Medications Medications (Trade) Dose Ordered Sig/Krian Route PRN Reason Start Time Stop Time Status Last Admin Dose Admin Acetaminophen (Tylenol Tab) 650 mg Q8HP PRN PO fever/MILD PAIN (PS 1-4) 10/22/20 16:15 10/25/20 23:19 Al Hydrox/Mg Hydrox/Simethicone (Mylanta) 30 ml Q6HP PRN PO HEARTBURN 10/22/20 16:15 Albuterol/ Ipratropium (Duoneb (Ipr 0.5mg/Alb 2.5mg)) 3 ml RQ6H NEB 10/22/20 20:00 10/27/20 00:13 Apixaban (Eliquis) 5 mg BID PO 10/22/20 21:00 10/26/20 21:05 Ascorbic Acid (Vitamin C) 500 mg DAILY PO 10/23/20 09:00 10/26/20 08:57 Bisacodyl (Dulcolax Suppository) 10 mg DAILYPRN PRN ME CONSTIPATION 10/22/20 16:15 Carbamide Peroxide (Debrox) 5 drop BID AD 10/22/20 21:00 10/26/20 09:01 DC 10/26/20 08:59 Diazepam (Valium) 5 mg TID PO 10/22/20 21:00 10/24/20 16:18 DC 10/24/20 08:23 Diazepam (Valium) 5 mg TID PO 10/24/20 16:00 10/26/20 21:05 Docusate Sodium (Colace) 100 mg BID PO 10/22/20 21:00 10/26/20 21:05 Emollient Cream (Vanicream) feet BID TOP 10/22/20 21:00 10/26/20 21:08 Fluticasone Propionate (Flonase 0.05% Nasal [place]) 1 spray BID NARES 10/22/20 21:00 10/26/20 21:05 Furosemide (Lasix) 40 mg BID@09,17 PO 10/22/20 17:00 10/23/20 07:46 DC 10/22/20 17:16 Home Med (Med Rec Complete!) ASDIRECTED XX 10/22/20 14:30 10/22/20 14:25 DC Hydrochlorothiazide (Hydrodiuril) 25 mg DAILY PO 10/23/20 09:00 10/26/20 08:58 Lidocaine (Lidoderm Patch) 1 patch DAILY TD 10/26/20 09:00 10/26/20 01:57 DC Lidocaine (Lidoderm Patch) 1 patch DAILY@0200 TD 10/26/20 02:00 10/26/20 02:08 Magnesium Oxide (Mag-Ox) 400 mg DAILY PO 10/23/20 09:00 10/26/20 08:57 Meclizine HCl (Antivert) 12.5 mg TIDP PRN PO DIZZINESS 10/22/20 16:15 Metoprolol Tartrate (Lopressor) 25 mg BID PO 10/22/20 21:00 10/26/20 21:06 Non-Formulary Medication ( See Comment Field Below ) REMOVE LIDODERM PATCH DAILY@1400 XX 10/26/20 14:00 10/26/20 14:00 Non-Formulary Medication ( See Comment Field Below ) REMOVE LIDODERM PATCH DAILY@21 XX 10/26/20 21:00 10/26/20 01:57 DC Ondansetron HCl (Zofran Odt) 4 mg Q6HP PRN SL NAUSEA OR VOMITING 10/22/20 16:15 Oxycodone/ Acetaminophen (Percocet 5mg/ 325mg Tablet) 1.5 tab Q6HP PRN PO MODERATE PAIN (PS 5-7) 10/22/20 16:15 10/27/20 05:01 Pantoprazole Sodium (Protonix) 40 mg BID PO 10/22/20 21:00 10/26/20 21:06 Potassium Chloride (Micro-K Extencaps) 10 meq DAILY PO 10/23/20 09:00 10/23/20 07:37 DC Potassium Chloride (Micro-K Extencaps) 20 meq DAILY PO 10/23/20 09:00 10/26/20 08:56 Prednisone (Deltasone) 5 mg DAILY PO 11/07/20 09:00 11/09/20 11:00 Prednisone (Deltasone) 10 mg DAILY PO 11/04/20 09:00 11/06/20 11:00 Prednisone (Deltasone) 20 mg DAILY PO 11/01/20 09:00 11/03/20 11:00 Prednisone (Deltasone) 30 mg DAILY PO 10/29/20 09:00 10/31/20 11:00 Prednisone (Deltasone) 40 mg DAILY PO 10/26/20 09:00 10/28/20 11:00 10/26/20 08:58 Prednisone (Deltasone) 50 mg DAILY PO 10/23/20 09:00 10/25/20 11:00 DC 10/25/20 08:13 Ramelteon (Rozerem) 8 mg QHS PRN PO INSOMNIA 10/23/20 03:30 10/25/20 23:18 Senna (Senokot) 1 tab QHS PO 10/22/20 21:00 10/26/20 21:05 Simethicone (Mylicon) 80 mg QIDP PRN PO BLOATING 10/22/20 16:15 10/23/20 03:40 Sodium Chloride ([place] Nasal [place]) 2 spray TID NA 10/22/20 21:00 10/26/20 21:05 Sucralfate (Carafate) 1 gm ACHS PO 10/22/20 17:30 10/26/20 21:05 Tiotropium [place] (Spiriva Handihaler) 1 inhalation DAILY@08 INH 10/23/20 08:00 10/25/20 07:23 Vitamin D (Vitamin D) 2,000 units DAILY PO 10/23/20 09:00 10/26/20 08:58 CHIRAG LARA MD Oct 27, 2020 09:19
[2020-10-27] MEDS: POTASSIUM CHLORIDE 10 MEQ SR TABLET PO SCH (09:20)
[2020-10-27] MEDS: diazePAM 5MG TABLET PO SCH ×3 (09:20→21:47)
[2020-10-27] MEDS: APIXABAN 5 MG TAB (ELIQUIS) PO SCH ×2 (09:20→21:47)
[2020-10-27] MEDS: PANTOPRAZOLE 40MG TAB (PROTONIX) PO SCH ×2 (09:20→21:47)
[2020-10-27] MEDS: ASCORBIC ACID 500 MG TAB PO SCH (09:21)
[2020-10-27] MEDS: MAGNESIUM OXIDE 400MG TAB (MAG-OX) PO SCH (09:21)
[2020-10-27] MEDS: METOPROLOL TART 25 MG TABLET PO SCH ×2 (09:21→21:48)
[2020-10-27] MEDS: SODIUM CHLORIDE NASAL 0.65% SPRAY BTL (OCEAN) SCH ×3 (09:23→21:00)
[2020-10-27] MEDS: FLUTICASONE PROP 0.05% NASAL SPRAY 16 GM (FLONASE) NARES SCH ×2 (09:23→21:00)
[2020-10-27] MEDS: VANICREAM MOISTURIZING SKIN CREAM 113GM TUBE TOP SCH ×2 (09:23→21:51)
[2020-10-27 14:00] VITALS: BP 130/67
[2020-10-27] MEDS: **NOTE PATIENT COMMENT** MISC XX SCH (14:00)
[2020-10-27] MEDS: FUROSEMIDE 20 MG TAB PO SCH (17:54)
[2020-10-27 20:00] VITALS: BP 121/73
[2020-10-27] MEDS: ACETAMINOPHEN TAB 650MG DOSE (2X325MG) PO PRN (21:47)
[2020-10-27] MEDS: SENNA 8.6 MG TAB (SENOKOT) PO SCH (21:47)
[2020-10-27] MEDS: RAMELTEON 8 MG TAB (ROZEREM) PO PRN (21:47)
[2020-10-28] MEDS: PERCOCET 5MG/325MG TAB PO PRN ×2 (01:02→09:03)
[2020-10-28] MEDS: IPRATROPIUM 0.5MG/ALBUTEROL 2.5MG INH SOL UD 3ML (DUONEB) NEB SCH ×4 (01:18→19:58)
[2020-10-28] MEDS: LIDOCAINE 5% (LIDODERM) PATCH TD SCH (02:00)
[2020-10-28 05:23] VITALS: BP 138/77
[2020-10-28 06:47] LABS: BASO % 0.2 % (0.0-1.0); EOS # 0.1 10^3/uL (0.0-0.5); EOS % 0.4 % (0.0-3.0); HEMATOCRIT 43.3 % (36.0-47.0); HEMOGLOBIN 13.2 g/dl (12.0-15.5); LYMPH % 12.2 % (24.0-44.0); MEAN CORPUSCULAR HEMOGLOBIN 30.4 pg (27.0-33.0); MEAN CORPUSCULAR HGB CONC 30.5 g/dl (32.0-36.5); MEAN CORPUSCULAR VOLUME 99.8 fl (80.0-96.0); MONO % 6.2 % (0.0-5.0); NEUTROPHILS # 13.1 10^3/uL (1.5-8.5); NEUTROPHILS % 79.9 % (36.0-66.0); PLATELET COUNT, AUTOMATED 200 10^3/uL (150-450); RED BLOOD COUNT 4.34 10^6/uL (4.00-5.40)
[2020-10-28 06:50] LABS: WHITE BLOOD COUNT 16.3 10^3/uL (4.0-10.0)
[2020-10-28 07:07] LABS: CALCIUM LEVEL 8.8 MG/DL (8.8-10.2); CREATININE FOR GFR 1.15 MG/DL (0.55-1.30); GLOMERULAR FILTRATION RATE 48.7 (>39); POTASSIUM SERUM 3.9 MEQ/L (3.5-5.1)
[2020-10-28] MEDS: TIOTROPIUM INHALER/CAPSULE (SPIRIVA) INH SCH (08:00)
[2020-10-28] MEDS: REMEDY PHYTOPLEX Z-GUARD PASTE 113GM TUBE (FROM STOREROOM PRODUCT) TOP SCH ×3 (09:00→20:55)
[2020-10-28] MEDS: POTASSIUM CHLORIDE 10 MEQ SR TABLET PO SCH (09:02)
[2020-10-28] MEDS: ASCORBIC ACID 500 MG TAB PO SCH (09:02)
[2020-10-28] MEDS: FUROSEMIDE 20 MG TAB PO SCH (09:03)
[2020-10-28] MEDS: diazePAM 5MG TABLET PO SCH ×3 (09:03→20:54)
[2020-10-28] MEDS: APIXABAN 5 MG TAB (ELIQUIS) PO SCH ×2 (09:03→20:53)
[2020-10-28] MEDS: METOPROLOL TART 25 MG TABLET PO SCH ×2 (09:03→20:53)
[2020-10-28] MEDS: MAGNESIUM OXIDE 400MG TAB (MAG-OX) PO SCH (09:03)
[2020-10-28] MEDS: PANTOPRAZOLE 40MG TAB (PROTONIX) PO SCH ×2 (09:04→20:53)
[2020-10-28] MEDS: predniSONE 20 MG TAB PO SCH (09:04)
[2020-10-28] MEDS: VITAMIN D 1,000 INTERNATIONAL UNITS TABLET PO SCH (09:04)
[2020-10-28] MEDS: FLUTICASONE PROP 0.05% NASAL SPRAY 16 GM (FLONASE) NARES SCH ×2 (09:04→20:54)
[2020-10-28] MEDS: SODIUM CHLORIDE NASAL 0.65% SPRAY BTL (OCEAN) SCH ×3 (09:04→20:54)
[2020-10-28] MEDS: DOCUSATE SODIUM 100MG CAPSULE PO SCH ×2 (09:04→20:54)
[2020-10-28] MEDS: VANICREAM MOISTURIZING SKIN CREAM 113GM TUBE TOP SCH ×2 (09:05→20:56)
[2020-10-28] MEDS: SUCRALFATE 1 GM TAB PO SCH ×4 (09:06→20:53)
[2020-10-28] MEDS: **NOTE PATIENT COMMENT** MISC XX SCH (13:46)
[2020-10-28 14:00] VITALS: BP 122/62
[2020-10-28 20:00] VITALS: BP 149/95
[2020-10-28 20:53] VITALS: BP 149/95
[2020-10-28] MEDS: SENNA 8.6 MG TAB (SENOKOT) PO SCH (20:53)
[2020-10-28] MEDS: RAMELTEON 8 MG TAB (ROZEREM) PO PRN (20:54)
[2020-10-29] MEDS: PERCOCET 5MG/325MG TAB PO PRN (00:17)
[2020-10-29] MEDS: IPRATROPIUM 0.5MG/ALBUTEROL 2.5MG INH SOL UD 3ML (DUONEB) NEB SCH ×2 (02:00→07:35)
[2020-10-29] MEDS: LIDOCAINE 5% (LIDODERM) PATCH TD SCH (02:06)
[2020-10-29 06:00] VITALS: BP 155/95
[2020-10-29] MEDS: SUCRALFATE 1 GM TAB PO SCH ×2 (07:30→12:13)
[2020-10-29] MEDS: TIOTROPIUM INHALER/CAPSULE (SPIRIVA) INH SCH (07:36)
[2020-10-29] MEDS: APIXABAN 5 MG TAB (ELIQUIS) PO SCH (08:45)
[2020-10-29] MEDS: ASCORBIC ACID 500 MG TAB PO SCH (08:46)
[2020-10-29] MEDS: PANTOPRAZOLE 40MG TAB (PROTONIX) PO SCH (08:46)
[2020-10-29] MEDS: FUROSEMIDE 20 MG TAB PO SCH (08:46)
[2020-10-29] MEDS: DOCUSATE SODIUM 100MG CAPSULE PO SCH (08:46)
[2020-10-29] MEDS: POTASSIUM CHLORIDE 10 MEQ SR TABLET PO SCH (08:47)
[2020-10-29] MEDS: diazePAM 5MG TABLET PO SCH (08:47)
[2020-10-29] MEDS: MAGNESIUM OXIDE 400MG TAB (MAG-OX) PO SCH (08:47)
[2020-10-29] MEDS: METOPROLOL TART 25 MG TABLET PO SCH (08:47)
[2020-10-29] MEDS ORDERED: ELIQ5TAB PO (08:48)
[2020-10-29] MEDS ORDERED: METO1TAB87 PO (08:48)
[2020-10-29] MEDS ORDERED: PROAAER10 INH (08:48)
[2020-10-29] MEDS: SODIUM CHLORIDE NASAL 0.65% SPRAY BTL (OCEAN) SCH (08:48)
[2020-10-29] MEDS ORDERED: HYDR-3490 PO (08:48)
[2020-10-29] MEDS: FLUTICASONE PROP 0.05% NASAL SPRAY 16 GM (FLONASE) NARES SCH (08:48)
[2020-10-29] MEDS ORDERED: SPIR1CAP INH (08:48)
[2020-10-29] MEDS ORDERED: PRED5TA PO (08:48)
[2020-10-29] MEDS ORDERED: FURO20TA2 PO (08:48)
[2020-10-29] MEDS ORDERED: KLOR10TA76 PO (08:48)
[2020-10-29] MEDS ORDERED: PANT40TA29 PO (08:48)
[2020-10-29] MEDS: REMEDY PHYTOPLEX Z-GUARD PASTE 113GM TUBE (FROM STOREROOM PRODUCT) TOP SCH (08:49)
[2020-10-29] MEDS: VANICREAM MOISTURIZING SKIN CREAM 113GM TUBE TOP SCH (08:49)
[2020-10-29] MEDS: VITAMIN D 1,000 INTERNATIONAL UNITS TABLET PO SCH (08:50)
[2020-10-29] MEDS ORDERED: predniSONE 10 MG TAB PO SCH (09:00)
--- NOTE | 2020-10-29 09:22 | IPNPDOC ---
PM&R Progress Note DATE OF SERVICE: Oct 28, 2020 Histopathology Technician Progress Note Subjective: Patient reporting she has a mild sore throat, denies fevers or chills. REVIEW OF SYSTEMS: The following is a completed review of systems and has been reviewed. Review of systems otherwise unremarkable. PAIN: Patient self reports no pain EYES: No recent vision changes EARS, NOSE, & THROAT: No throat pain, or dysphagia, or rhinorrhea, right ear fullness and +sinus pressure (improved) CARDIOVASCULAR: Denies chest pain or palpitations PULMONARY: +shortness of breath with exertion GASTROINTESTINAL: Denies constipation/diarrhea GENITOURINARY: +incontinence, denies dysuria MUSCULOSKELETAL: generalized weakness NEUROLOGICAL:chronic dizziness HEMATOLOGICAL:denies easy bruising SKIN: no rash PSYCHIATRIC: Unremarkable All other review of systems found to be negative. PHYSICAL EXAMINATION: VITAL SIGNS: Please see below. GENERAL: Pleasant and cooperative. No acute distress. HEENT: PERRL. Extraocular movements intact. Clear conjunctiva, +horizontal nystagmus CARDIOVASCULAR: Regular rate and rhythm. No murmurs, rubs, or gallops LUNGS: Clear to auscultation bilaterally. No wheezes. No rhonchi, +crackles RLL ABDOMEN: Soft, nontender, nondistended. Positive bowel sounds. Normal active bowel sounds NEUROLOGICAL: Alert and oriented times three. Cranial nerves II through XII grossly intact. Sensation grossly intact EXTREMITIES: 5\5 strength bilateral upper extremities. 5\5 strength right lower extremity. 5/5 strength in left lower extremity. +mild LE edema SKIN: no sacral ulcers LABORATORY DATA: Please see below. ASSESSMENT:75-year-old F with past medical history of COPD and CHF who presents status post COPD and CHF exacerbation PLAN: 1. Rehab- PT/OT strengthen/stretch/maintain ROM all 4 limbs, teach energy conservation 2. Cardiac- hx of diastolic CHF with recent exacerbation, fluid restrict, daily weights, c/u low dose lasix for LE edema and c/u HCTZ- medicine consulted to assist in overall management -Afib on Eliquis and metoprolol 3. Neuro- hx of vertigo reporting lightheadedness more than room spinning, ordered meclizine prn and zofran odt prn 4. Resp- hx of COPD on home 02 with recent exacerbation, c/u prednisone taper a nd dulaquita marqueziva -LEANNE non-compliant with CPAP and with moderate pulm htn, c/u 02 -flonase, nasal saline for nasal congestion -patient with mild throat soreness, resp panel repeated and negative, strep screen negative will f/u cx, likely due to sinus drainage 5. GI ppx- protonix BID and sucralfate for additional protection from bleed while on steroids 6. Psych- patient on valium for anxiety 7. Pain- percocet, hold for RR <12 or AMS 8. DVT ppx- on eliquis 9. Leukocytosis- from oral steroids, no fevers or signs of active infection 10. Dispo- 10-29-20 to home, progressing towards goals Allergies Coded Allergies: adhesive tape (Verified Allergy, Intermediate, RASH, 12/20/18) latex (Verified Allergy, Intermediate, RASH, 12/20/18) azithromycin (Unverified Allergy, Unknown, Unknown, 10/22/20) Listed under diet Vital Signs Vital Signs Date Time Temp Pulse Resp B/P (MAP) Pulse Ox O2 Delivery O2 Flow Rate FiO2 10/29/20 06:00 98.4 77 18 155/95 (115) 98 Nasal Cannula 2.0 Microbiology Microbiology 10/28/20 Group A Streptococcus Screen (TONG) - Final, Resulted 10/28/20 Group A Streptococcus Screen (TONG), Resulted Pending 10/28/20 Respiratory Virus Panel (PCR) (TONG) - Final, Complete Current Medications Current Medications Current Medications Medications (Trade) Dose Ordered Sig/Kiran Route PRN Reason Start Time Stop Time Status Last Admin Dose Admin Acetaminophen (Tylenol Tab) 650 mg Q8HP PRN PO fever/MILD PAIN (PS 1-4) 10/22/20 16:15 10/27/20 21:47 Al Hydrox/Mg Hydrox/Simethicone (Mylanta) 30 ml Q6HP PRN PO HEARTBURN 10/22/20 16:15 Albuterol/ Ipratropium (Duoneb (Ipr 0.5mg/Alb 2.5mg)) 3 ml RQ6H NEB 10/22/20 20:00 10/29/20 07:35 Apixaban (Eliquis) 5 mg BID PO 10/22/20 21:00 10/29/20 08:45 Ascorbic Acid (Vitamin C) 500 mg DAILY PO 10/23/20 09:00 10/29/20 08:46 Bisacodyl (Dulcolax Suppository) 10 mg DAILYPRN PRN IN CONSTIPATION 10/22/20 16:15 Carbamide Peroxide (Debrox) 5 drop BID AD 10/22/20 21:00 10/26/20 09:01 DC 10/26/20 08:59 Diazepam (Valium) 5 mg TID PO 10/22/20 21:00 10/24/20 16:18 DC 10/24/20 08:23 Diazepam (Valium) 5 mg TID PO 10/24/20 16:00 10/29/20 08:47 Docusate Sodium (Colace) 100 mg BID PO 10/22/20 21:00 10/29/20 08:46 Emollient Cream (Vanicream) feet BID TOP 10/22/20 21:00 10/29/20 08:49 Fluticasone Propionate (Flonase 0.05% Nasal [place]) 1 spray BID NARES 10/22/20 21:00 10/29/20 08:48 Furosemide (Lasix) 20 mg DAILY PO 10/27/20 09:00 10/29/20 08:46 Furosemide (Lasix) 40 mg BID@09,17 PO 10/22/20 17:00 10/23/20 07:46 DC 10/22/20 17:16 Home Med (Med Rec Complete!) ASDIRECTED XX 10/22/20 14:30 10/22/20 14:25 DC Hydrochlorothiazide (Hydrodiuril) 25 mg DAILY PO 10/23/20 09:00 10/29/20 08:45 Lidocaine (Lidoderm Patch) 1 patch DAILY TD 10/26/20 09:00 10/26/20 01:57 DC Lidocaine (Lidoderm Patch) 1 patch DAILY@0200 TD 10/26/20 02:00 10/29/20 02:06 Magnesium Oxide (Mag-Ox) 400 mg DAILY PO 10/23/20 09:00 10/29/20 08:47 Meclizine HCl (Antivert) 12.5 mg TIDP PRN PO DIZZINESS 10/22/20 16:15 Metoprolol Tartrate (Lopressor) 25 mg BID PO 10/22/20 21:00 10/29/20 08:47 Non-Formulary Medication ( See Comment Field Below ) REMOVE LIDODERM PATCH DAILY@1400 XX 10/26/20 14:00 10/26/20 14:00 Non-Formulary Medication ( See Comment Field Below ) REMOVE LIDODERM PATCH DAILY@21 XX 10/26/20 21:00 10/26/20 01:57 DC Ondansetron HCl (Zofran Odt) 4 mg Q6HP PRN SL NAUSEA OR VOMITING 10/22/20 16:15 Oxycodone/ Acetaminophen (Percocet 5mg/ 325mg Tablet) 1.5 tab Q6HP PRN PO MODERATE PAIN (PS 5-7) 10/22/20 16:15 10/29/20 00:17 Pantoprazole Sodium (Protonix) 40 mg BID PO 10/22/20 21:00 10/29/20 08:46 Potassium Chloride (Micro-K Extencaps) 10 meq DAILY PO 10/23/20 09:00 10/23/20 07:37 DC Potassium Chloride (Micro-K Extencaps) 20 meq DAILY PO 10/23/20 09:00 10/29/20 08:47 Prednisone (Deltasone) 5 mg DAILY PO 11/07/20 09:00 11/09/20 11:00 Prednisone (Deltasone) 10 mg DAILY PO 11/04/20 09:00 11/06/20 11:00 Prednisone (Deltasone) 20 mg DAILY PO 11/01/20 09:00 11/03/20 11:00 Prednisone (Deltasone) 30 mg DAILY PO 10/29/20 09:00 10/31/20 11:00 10/29/20 08:46 Prednisone (Deltasone) 40 mg DAILY PO 10/26/20 09:00 10/28/20 11:00 DC 10/28/20 09:04 Prednisone (Deltasone) 50 mg DAILY PO 10/23/20 09:00 10/25/20 11:00 DC 10/25/20 08:13 Ramelteon (Rozerem) 8 mg QHS PRN PO INSOMNIA 10/23/20 03:30 10/28/20 20:54 Senna (Senokot) 1 tab QHS PO 10/22/20 21:00 10/28/20 20:53 Simethicone (Mylicon) 80 mg QIDP PRN PO BLOATING 10/22/20 16:15 10/23/20 03:40 Sodium Chloride ([place] Nasal [place]) 2 spray TID NA 10/22/20 21:00 10/29/20 08:48 Sucralfate (Carafate) 1 gm ACHS PO 10/22/20 17:30 10/28/20 20:53 Tiotropium [place] (Spiriva Handihaler) 1 inhalation DAILY@08 INH 10/23/20 08:00 10/29/20 07:36 Vitamin D (Vitamin D) 2,000 units DAILY PO 10/23/20 09:00 10/29/20 08:50 CHIRAG LARA MD Oct 29, 2020 09:22
--- NOTE | 2020-10-29 09:41 | PMRDS ---
NAME: ANETA DE SANTIAGO [facility] WT ID#: [id number] : 1945 JOB: [id number] NESSA: 10/22/2020 ACCT: [id number] DOCTOR: CHIRAG LARA MD PMR DISCHARGE SUMMARY DATE OF ADMISSION: 10/22/2020 DATE OF DISCHARGE: 10/29/2020 CHIEF COMPLAINT/DISCHARGE DIAGNOSIS: COPD and CHF exacerbation. HISTORY OF PRESENT ILLNESS: This is a 75-year-old female with a past medical history of vertigo, COPD on home oxygen, LEANNE, noncompliant with CPAP, chronic hypoxic hypercarbic respiratory failure, atrial fibrillation, diastolic CHF, pulmonary hypertension, morbid obesity, who presented to [facility] ED on 10/18/2020 with worsening shortness of breath and worsening cough with chest x-ray negative for infiltrates. She was treated for a COPD exacerbation with breathing treatments and IV Solumedrol. She was also found to have an elevated BNP and was given IV diuretics. She had notable impairments in ambulation and ADLs, was transitioned to p.o. steroids and deemed medically appropriate for discharge to ARU. PAST MEDICAL HISTORY: As per HPI. HOSPITAL COURSE: The patient was admitted and enrolled in a comprehensive PT/OT program. She received 24 hour nursing supervision and weekly team meetings were held to discuss her progress. Patient was maintained on a fluid restricted diet with daily weights for a history of CHF and also maintained on diuretics with overall stable kidney function. Patient developed a mild sore throat during her hospital course with a respiratory panel negative and Strep screen negative. She was given nasal saline drops, Flonase for her nasal congestion with overall improvement. She was also maintained on a prednisone taper and was noted to have leukocytosis without any obvious sign of infection thought to be due to her steroid use. She was also maintained on Protonix b.i.d. and Sucralfate in the setting of steroid use to avoid GI bleed and made steady gains in therapy, deemed to be medically and functionally stable to return home. DISCHARGE MEDICATIONS: As per instructions. FUNCTIONAL HISTORY: On discharge, the patient was modified independent with a rolling walker for ambulation, bed mobility, functional transfers, standby assist for toileting. Thank you for this referral.
[2020-11-01] MEDS ORDERED: predniSONE 20 MG TAB PO SCH (09:00)
[2020-11-04] MEDS ORDERED: predniSONE 10 MG TAB PO SCH (09:00)
[2020-11-07] MEDS ORDERED: predniSONE 5 MG TAB PO SCH (09:00)
== END 2020-10-29 13:08 | disposition home or self-care (01) | DRG 948 ==
LOC: M PM&R 14:05
PROVIDERS: ADMIT Physical Medicine & Rehabilitation; ATTEND Physical Medicine & Rehabilitation
DX: R53.1 Weakness (principal); J96.11 Chronic respiratory failure with hypoxia; J96.12 Chronic respiratory failure with hypercapnia; I50.32 Chronic diastolic (congestive) heart failure; J44.9 Chronic obstructive pulmonary disease, unspecified; R42 Dizziness and giddiness; G47.33 Obstructive sleep apnea (adult) (pediatric); I48.91 Unspecified atrial fibrillation; I27.20 Pulmonary hypertension, unspecified; E66.01 Morbid (severe) obesity due to excess calories; Z74.09 Other reduced mobility; Z74.1 Need for assistance with personal care; R32 Unspecified urinary incontinence; F41.1 Generalized anxiety disorder; Z79.01 Long term (current) use of anticoagulants; Z79.52 Long term (current) use of systemic steroids; Z79.899 Other long term (current) drug therapy; Z99.81 Dependence on supplemental oxygen; Z88.1 Allergy status to other antibiotic agents; Z91.040 Latex allergy status; Z91.048 Other nonmedicinal substance allergy status; Z91.19 Patient's noncompliance with other medical treatment and regimen

== ENCOUNTER 2020-11-11 05:27 | Inpatient (IN) | payer MEDICARE, OTHER ==
[~2020-11-11] VITALS: Ht 147.3 cm; Wt 86.7 kg
[~2020-11-11 05:27] MED LIST changes: +KLOR10TA76 PO; +PANT40TA29 PO; +PRED5TA PO
--- OUTSIDE RECORDS SUMMARY | 2020-11-11 05:35 | CCD | Continuity of Care Document ---
Author Author Aracelis CALVERT PA Organization Unknown Address [address] [place] [address] Phone [phone] Care Team Providers Care Quality Facilitator Name Role Phone Shirley Angulo Skylar OD AUTM Unavailable Lucy Diego HEAD OF STORE OPERATIONS AUTM [phone] [facility] AUTM [phone] Problems Active Problems Provider Date Arthralgia of [...] SIG Qnty Indications Ordering Provide r Date Klor-Con M10 10Meq Tablets ER take one tablet by mouth every morning 90tabs TEJAS Casillas JR 10/05/2020 Albuterol Sulfate HFA 108(90Base) mcg/Act Aerosol Inhale Two Puffs By Mouth Four Times Daily as Needed 25.5units TEJAS Casillas JR 07/24/2020 Spiriva Handihaler 18mcg Capsules 1 inhalation daily 90caps TEJAS Casillas JR 2019 Furosemide 20mg Tablets 1 by mouth every day 180tabs TEJAS Casillas JR 020 Prednisone 20mg Tablets take 1tablet by mouth for 3 days and then half a tablet by mouth for two days 4tabs TEJAS Casillas JR 02/24/2020 Amoxicillin 500mg Capsules 1 capsule three times a day for 10 days. 30caps Fariha Casillas JR 02/21/2020 Metoprolol Tartrate 25mg Tablets take one tablet by mouth twice a day 30tabs TEJAS Casillas JR 10/22/2018 Eliquis 5mg Tablets Take One Tablet [...] toe 1Pair R60.0 Shanta alvarado M.D. 04/07/2017 Walker [place] Wheels/5 Adjustment Holes/ -09/25" -09/25" Misc dx: 719.47, 496 Divya Chang FNP 08/2015 Albuterol Sulfate (2 .5mg/3ML) 0.083% Nebulizer use via aerosol neb every 2-4 hours as needed DX: J44.9 360Via l Shanta Beltran M.D. 06/05/2014 Diazepam 5mg Tablets 1 by mouth three times a day as needed anxiety 90tabs TEJAS Casillas JR 10/25/2013 Vitamin C 500mg Tablets 1 po qd winter Kylah Changhryn,[facility] Vitamin E 400Unit Capsules 1 po qd 100caps Unknown Zovirax 5% Cream Apply 6X A Day Q3HRS X 7Days 1units [facility] Nebulizer prn Unknown Hydrochlorothiazide 25mg Tablets Take One Tablet By Mouth Every Day 90tabs [facility] History Medications Klor-Con 20Meq Packet 2 by mouth every day 180units TEJAS Casillas JR 020 - 10/05/2020 Potassium Chloride Kari ER 10Meq Tablets ER 1 by mouth every am 30tabs Soila Tran 07/17/2020 - 10/12/2020 Potassium Chloride Kari ER 20Meq Tablets ER 2 by mouth every day 60tabs TEJAS Casillas JR 06/23/2020 - 07/31/2020 Furosemide 20mg Tablets 1 by mouth every day 90tabs TEJAS Casillas JR 020 - 06/12/2020 Immunizations CPT Code Status Date Vaccine Lot # 66624 Refused 09/06/2018 Influenza Virus Vaccine, Quadrivalent (Cciiv4), Derived From Cell 13054 Refused 09/06/2018 Shingrix Zoster Vaccine (HZV), Recombinant, Subunit, Adjuvanted 32908 Refused 09/06/2018 Zoster Vaccine 82136 Refused 09/06/2018 Pneumovax 23 [id number] Refused 09/06/2018 Adacel- Tetanus Diphtheria P ertussis (Age64 & Under) 95934 Refused 09/06/2018 Prevnar 13 [id number] Refused 10/25/2013 Fluvirin Virus Vaccine Vital Signs Date Vital Result Comment 11/04/2020 1:03pm BP Systolic 124 mmHg BP Diastolic 68 mmHg Heart Rate 78 /min Height 58 inches 4'10" Weight 176.00 lb BMI (Body Mass Index) 36.8 kg/m2 06/22/2020 3:31pm BP Systolic 120 mmHg BP Diastolic 70 mmHg Heart Rate 82 /min Height 58 inches 4'10" Weight 190.00 lb BMI (Body Mass Index) 39.7 kg/m2 Results Test Acquired Date Facility Test Result H/L Range Note Laboratory test finding 07/19/2020 [facility] [address] [place] [address] [phone] Bedside Glucose 105 mg/dL Normal 83-110 CBC With Differential 07/19/2020 [facility] [address] [place] [address] [phone] White Blood Count 10.5 10 High 4.0-10.0 [...] 36.0-66.0 Lymph % 15.8 % Low 24.0-44.0 [place] % 5.8 % High 0.0-5.0 Eos % 3.0 % Normal 0.0-3.0 Baso % 0.5 % Normal 0.0-1.0 Immature Granulocyte % 0.4 % Normal 0-3.0 Nucleated Red Blood Cell % 0.0 % Normal 0-0 Neutrophils # 7.8 10 Normal 1.5-8.5 Lymph # 1.7 10 Normal 1.5-5.0 [place] # 0.6 10 Normal 0.0-0.8 Eos # 0.3 10 Normal 0.0-0.5 Baso # 0.1 10 Normal 0.0-0.2 Prothrombin Time/Inr 07/19/2020 [facility] enter [address] [place] [address] [phone] Prothrombin Time 16.7 seconds High 12.5-14.3 Inr 1.32 Normal 1 Laboratory test finding 07/19/2020 [facility] [address] [place] [address] [phone] Partial Thromboplastin Time 43.2 seconds High 24 .2-38.5 Cardiac Marker Panel 07/19/2020 [facility] enter [address] [place] [address] [phone] CPK Creatine Phosphokinase 38 U/L Normal 26-19 2 CK-MB Value Mass < 1.0 NG/ML Normal <3.6 MB/CK Relative Index 2.63 Normal < Or =4 2 Troponin I < 0.02 NG/ML Normal < 0.10 3 Basic Metabolic Profile 07/19/2020 [facility] [address] [place] [address] [phone] Glucose, Fasting 131 mg/dL High 70-100 Blood [...] mg/dL Normal 8.8-10.2 Laboratory test finding 07/19/[address] [address] [phone] Magnesium Level 1.6 mg/dL Low 1.8-2.4 Thyroid Stimulating Hormone 1.440 uIU/ML Normal 0.358-3.740 Free T4 1.05 ng/dL Normal 0.76-1.46 Basic Metabolic Panel 06/22/2020 [facility] Telephone Coin Box Collector: [place] [address] [phone] Glucose 131 mg/dL High 74 - 99 [...] >60 GFR 58 mL/min Low >60 6 Basic Metabolic Panel 06/08/2020 [facility] Telephone Coin Box Collector: Dr [place] [address] [phone] Glucose 110 mg/dL High 74 - 99 7 BUN 18 mg/dL 7 - 18 Creatinine 0.9 mg/dL 0.6 - 1.3 Sodium 141 mEq/L 136 - 145 Potassium 3.6 mEq/L 3.5 - 5.1 Chloride 101 mEq/L 98 - 107 Carbon Dioxide 35 mEq/L High 21 - 32 Calcium 9.0 mg/dL 8.5 - 10.1 GFR >= 60 mL/min >60 GFR >= 60 mL/min >60 8 Laboratory test finding 06/08/2020 [facility] Telephone Coin Box Collector: [place] [address] [phone] B-Type Natriuretic Peptide 189.0 pg/mL High 0.0 - 100.0 Arterial Blood Gas 05/27/2020 [facility] [address] [place] [address] [phone] ABG pH (Arterial) 7.402 units Normal 7.350-7.450 ABG Partial Pressure Co2 56.9 mmHg High 35.0-45.0 ABG Partial Pressure O2 131.8 mmHg High 75.0-100.0 ABG Total Co2 36.4 mEq/L High 23.0-31.0 ABG Hco3 34.6 mEq/L High 22.0-26.0 ABG Base Excess 7.9 High -2.0-2.0 ABG Standard Hco3 31.8 mEq/L High 22.0-26.0 ABG O2 Saturation 98.9 % Normal 95.0-99.0 CBC With Differential 05/27/2020 [facility] [address] [place] [address] [phone] White Blood Count 11.7 10 High 4.0-10.0 [...] 36.0-66.0 Lymph % 9.5 % Low 24.0-44.0 [place] % 4.9 % Normal 0.0-5.0 Eos % 1.3 % Normal 0.0-3.0 Baso % 0.4 % Normal 0.0-1.0 Immature Granulocyte % 0.5 % Normal 0-3.0 Nucleated Red Blood Cell % 0.0 % Normal 0-0 Neutrophils # 9.8 10 High 1.5-8.5 Lymph # 1.1 10 Low 1.5-5.0 [place] # 0.6 10 Normal 0.0-0.8 Eos # 0.2 10 Normal 0.0-0.5 Baso # 0.1 10 Normal 0.0-0.2 Prothrombin Time/Inr 05/27/2020 [facility] enter [address] [place] [address] [phone] Prothrombin Time 16.2 seconds High 11.8-14.0 Inr 1.28 Normal 9 Cardiac Marker Panel 05/27/2020 [facility] enter [address] [place] [address] [phone] CPK Creatine Phosphokinase 32 U/L Normal 26-19 2 CK-MB Value Mass 1.1 NG/ML Normal <3.6 MB/CK Relative Index 3.44 Normal < Or =4 10 Troponin I < 0.02 NG/ML Normal < 0.10 11 Liver Profile 05/27/2020 [facility] [address] [place] [address] [phone] Ast/Sgot 10 U/L Normal 7-37 Alt/SGPT 11 U/L Low 12-78 Alkaline Phosphatase 79 U/L Normal 45-117 Bilirubin,Total 1.1 mg/dL High 0.2-1.0 Bilirubin,Direct 0.4 mg/dL High 0.0-0.2 Total Protein 6.5 GM/DL Normal 6.4-8.2 Albumin 3.3 GM/DL Normal 3.2-5.2 Albumin/Globulin Ratio 1.0 Low 1.2-2.2 Basic Metabolic Profile 05/27/2020 [place] [address] [phone] Glucose, Fasting 118 mg/dL High 70-100 Blood Urea Nitrogen 15 mg/dL Normal 7-18 Creatinine For GFR 0.69 mg/dL Normal 0.55-1.30 Glomerular Filtration Rate > 60.0 Normal >39 1 2 Sodium Level 142 mEq/L Normal 136-145 Potassium Serum 3.8 mEq/L Normal 3.5-5.1 Chloride Level 98 mEq/L Normal 98-107 Carbon Dioxide Level 42 mEq/L High 21-32 Anion Gap 2 mEq/L Low 8-16 Calcium Level 9.0 mg/dL Normal 8.8-10.2 Laboratory test finding 05/27/[address] [address] [phone] NT-Pro BNP 2410 pg/mL High <450 Respiratory Panel 05/27/2020 [facility] [address] [place] [address] [phone] Respiratory Panel This respiratory <SEE NOTE> 13 1 THERAPUTIC HUMAN INR VALUES INDICATIONS NORMAL [...] 3 Troponin I Reference Interva l for [employer] [place] LOCI: 99th Percentile= 0.00-0.045 ng/ml Risk Stratification: [...] Little GFR Left ESRD GFR <15 on SOFT BOARDER 5 100-125 mg/dL PRE-DIABET ES/FASTING >126 mg/dL DIABETES/FASTING 6 CHRONIC KIDNEY DISEASE STAGI NG PER NKF STAGE I & II GFR >= 60 NORMAL TO MILDLY DECREASED STAGE III GFR 30-59 MODERATELY DECREASED STAGE IV GFR 15-29 SEVERELY DECREASED STAGE V GFR <15 VERY LITTLE GFR LEFT ESRD GFR <15 ON SOFT BOARDER 7 100-125 mg/dL PRE-DIABET ES/FASTING >126 mg/dL DIABETES/FASTING 8 CHRONIC KIDNEY DISEASE STAGI NG PER NKF STAGE I & II GFR >= 60 NORMAL TO MILDLY DECREASED STAGE III GFR 30-59 MODERATELY DECREASED STAGE IV GFR 15-29 SEVERELY DECREASED STAGE V GFR <15 VERY LITTLE GFR LEFT ESRD GFR <15 ON SOFT BOARDER 9 THERAPUTIC HUMAN INR VALUES INDICATIONS NORMAL RANGES PROPHYLAXIS/TREATMENT OF: VENOUS THROMBOSIS 2.0-3.0 PULMONARY EMBOLISM 2.0-3.0 PREVENTION OF SYSTEMIC EMBOLISM FROM: TISSUE HEART VALVES 2.0-3.0 ACUTE MYOCARDIAL INFARCTION 2.0-3.0 VALVULAR HEART DISEASE 2.0-3.0 ATRIAL FIBRILLATION 2.0-3.0 MECHANICAL VALVES(HIGH RISK) 2.5-3.5 RECURRENT MYOCARDIAL INFARCTION 2.5-3.5 10 DIAGNOSIS CRITERIA MMB ng/ml Relative Index (RI) NON-AMI < or = 5 N/A MEYER ZONE > 5 < or = 4 AMI > 5 > 4 11 Troponin I Reference Interva l for [employer]ens ncyclo LOCI: 99th Percentile= 0.00-0.045 ng/ml Risk Stratification: <= 0.10 ng/ml Decreased Risk for Adverse Clinical Events. 0.10-1.50 ng/ml Increased Risk for Adv erse Clinical Events. Evaluation of additional criterion and/or repeat testing in 2-6 hours is suggested to rule out myocardial damage. >= 1.50 ng/ml Indicative of Myocardial Injury. 12 Units are mL/min/1.73 m2 Chronic Kidney Disease Staging per NKF: Stage I & II GFR >=60 Normal to Mildly Decreased Stage III GFR 30-59 Moderately Decreased Stage IV GFR 15-29 Severely Decreased Stage V GFR <15 Very Little GFR Left ESRD GFR <15 on SOFT BOARDER 13 This respiratory PCR panel d etects Influenza A H1, H3 and 2008 H1 viruses, Influenza B virus, Resp iratory Syncytial Virus, Human metapneumovirus, Parainfluenza virus 1, 2, 3 and 4, Adenovirus, Rhinovirus/Enterovirus, Coronavirus HKU1, NL63, OC43, 229E and SARS-CoV-2 (COVID 19), Bordetella pertussis, Bordetella parapertussis, Mycoplasma pneumoniae and Chlamydia pneumoniae. NEGATIVE by MULTIPLEXED NUCLEIC ACID PCR SARS-CoV-2 (COVID 19) NEGATIVE - SARS-CoV-2 (COVID19) Procedures Date Code Description Status 06/06/2018 [id number] Bone Mineral Density Test Comple angela 06/06/2018 [id number] Mammogram Completed 03/09/2017 [id number] Mammogram Completed 07/11/2016 [id number] Mammogram Completed 03/10/2015 [id number] Mammogram Completed 02/19/2015 [id number] Mammogram Completed 08/28/2013 [id number] Bone Mineral Density Test Comple angela 08/28/2013 [id number] Mammogram Completed Medical Devices Description No Information Available Encounters Type Date Location Provider Dx Diagnosis Office Visit 06/22/2020 3:20p [facility] PTEJAS Tucker JR I50.32 Chronic diastolic (congestiv e) heart failure J44.9 Chronic obstructive pulmonar y disease, unspecified I10 Essential (primary) hyperten lisa Office Visit 06/08/2020 10:40a [facility] PTEJAS Tucker JR J44.9 Chronic obstructive pulmonar y disease, unspecified I50.32 Chronic diastolic (congestiv e) heart failure I10 Essential (primary) hyperten lisa F17.210 Nicotine dependence, cigaret monet, uncomplicated I48.0 Paroxysmal atrial fibrillati on M15.9 Polyosteoarthritis, unspecif ied Assessments Date Code Description Provider 11/04/2020 I50.32 Chronic diastolic (congestive) h eart failure TEJAS Casillas JR 11/04/2020 J44.9 Chronic obstructive pulmonary di sease, unspecified Mathew Calvert JR, TEJAS 11/04/2020 I10 Essential (primary) hypertension Mathew Calvert JR, TEJAS 11/04/2020 I48.0 Paroxysmal atrial fibrillation R ena Calvert JR, TEJAS 11/04/2020 M15.9 Polyosteoarthritis, unspecified Mathew Calvert JR, TEJAS 11/04/2020 F41.9 Anxiety disorder, unspecified Karen Calvert JR, PA 11/04/2020 K59.00 Constipation, unspecified Mathew Calvert JR, PA 06/22/2020 I50.32 Chronic diastolic (congestive) h eart failure TEJAS Casillas JR 06/22/2020 J44.9 Chronic obstructive pulmonary di sease, unspecified Mathew Calvert JR, PA 06/22/2020 I10 Essential (primary) hypertension Mathew Calvert JR, TEJAS 06/08/2020 J44.9 Chronic obstructive pulmonary di sease, unspecified Mathew Calvert JR, TEJAS 06/08/2020 I50.32 Chronic diastolic (congestive) h eart failure Mathew Calvert JR, TEJAS 06/08/2020 I10 Essential (primary) hypertension Mathew Calvert JR, TEJAS 06/08/2020 F17.210 Nicotine dependence, cigarettes, uncomplicated Mathew Calvert JR, TEJAS 06/08/2020 I48.0 Paroxysmal atrial fibrillation R ena Calvert JR, TEJAS 06/08/2020 M15.9 Polyosteoarthritis, unspecified TEJAS Casillas JR Plan of Treatment Future Appointment(s):* 12/07/2020 1:00 pm - TEJAS Casillas JR at [facility] 11/04/2020 - TEJAS Casillas JR* I50.32 Chronic diastolic (congestive) heart failure* New Orders:* Portable O2, Ordered: 11/04/20 * Comments:* BMP pending, added Lasix as she is retaining fluid, will consider d/c 25mg HCTZ and bump to 40mg lasix due to swelling, no SOB or CP * J44.9 Chronic obstructive pulmonary disease, unspecified* Comments:* BMP pending, RTC 4 weeks for recheck, advised elevation and salt restrictions. C ontinue nasal oxygen Have done order for Inogen for patient at this time. Limited mobility due to oxygen tank at this time * I10 Essential (primary) hypertension* Comments:* She is currently at [facility]-8 goals, diet and exercise were discussed including Mediterranean diet and 30 minutes of aerobic exercise daily, continue current medication regimen at this time. * I48.0 Paroxysmal atrial fibrillation* Comments:* Rate is controlled and proper anticoagulation * M15.9 Polyosteoarthritis, unspecified* Comments:* She is in chronic pain, at her baseline, in wheel chair Perocet refilled after istop consulted * F41.9 Anxiety disorder, unspecified* Comments:* Doing well on current medication regimen * K59.00 Constipation, unspecified* Comments:* Colace PRN since hospital Functional Status Description No Information Available Mental Status Description No Information Available Referrals Description No Information Available
--- OUTSIDE RECORDS SUMMARY | 2020-11-11 05:35 | CCD ---
Continuity of Care Document (CCD) Created on: 11/04/2020 Aracelis Pollard External Reference #: [id number] : [id number] Sex: Female Author Author Aracelis RUBIO PA Organization Unknown Address [id number] [place] [address] Phone [phone] Care Team Providers Care [employer] Name Role Phone Shirley Angulo Skylar OD AUTM Unavailable Lucy Diego TUMBLING MACHINE OPERATOR AUTM [phone] [employer] AUTM [phone] Problems Active Problems Provider Date Arthralgia of the ankle and/or foot Divya Chang FNP Onse t: 04/05/2017 Chronic obstructive pulmonary disease with (acute) exa cerbation Divya Chang FNP Onset: 04/05/2017 Essential hypertension Diyva Chang FNP Onset: 04/05/2017 Unspecified osteoarthritis, unspecified [...] 1Pair R60.0 Shanta alvarado M.D. 04/07/2017 [facility] [place] Wheels/5 Adjustment Holes/ -09/25" -09/25" Misc dx: 719.47, 496 Divya Chang FNP 08/2015 Albuterol Sulfate (2 .5mg/3ML) 0.083% Nebulizer use via aerosol neb every 2-4 hours as needed DX: J44.9 360Via l Shanta Beltran M.D. 06/05/2014 Diazepam 5mg Tablets 1 by mouth three times a day as needed anxiety 90tabs TEJAS Casillas JR 10/25/2013 Vitamin C 500mg Tablets 1 po qd winter Divya ChangTUMBLING MACHINE OPERATOR Vitamin E 400Unit Capsules 1 po qd 100caps Unknown Zovirax 5% Cream Apply 6X A Day Q3HRS X 7Days 1units [facility] Unknown History Medications Klor-Con 20Meq Packet 2 by [...] CPT Code Status Date Vaccine Lot # 31496 Refused 09/06/2018 Influenza Virus Vaccine, Quadrivalent (Cciiv4), Derived From Cell [id number] Refused 09/06/2018 Shingrix Zoster Vaccine (HZV), Recombinant, Subunit, Adjuvanted 93563 Refused 09/06/2018 Zoster Vaccine 72641 Refused 09/06/2018 Pneumovax 23 [id number] Refused 09/06/2018 Adacel- Tetanus Diphtheria P ertussis (Age64 & Under) 56377 Refused 09/06/2018 Prevnar 13 [id number] Refused 10/25/2013 [...] Date Facility Test Result H/L Range Note Complete Blood Count 11/04/2020 [facility] Government Affairs Specialist: [place] [address] [phone] WBC 15.3 x10*3/UL High 4.1 - 10.9 1 RBC 4.72 x10*6/UL 4.20 - 6.30 Hemoglobin 14.5 g/dL 12.0 - 18.0 Hematocrit 44.3 % 37.0 - 51.0 MCV 93.8 fL 80.0 - 97.0 MCH 30.8 pg 26.0 - 32.0 MCHC 32.8 g/dL 31.0 - 38.0 RDW 13.5 % 11.6 - 13.7 PLT 147 x10*3/UL 140 - 440 MPV 9.2 FL 7.8 - 11.0 Lymph % 8.3 % Low 10.0 - 58.5 Mid % 2.3 % 1.7 - 9.3 Neut % 89.4 % 37.0 - 92.0 Lymph # 1.2 x10*3/UL 0.6 - 4.1 Mid # 0.4 x10*3/UL 0.1 - 0.6 Neut # 13.7 x10*3/UL High 2.0 - 7.8 Basic Metabolic Panel 11/04/2020 [facility] Government Affairs Specialist: Dr Murali Castorena [place], [place] [id number] [phone] Glucose 145 mg/dL High 74 - 99 2 BUN 31 mg/dL High 7 - 18 Creatinine 1.0 mg/dL 0.6 - 1.3 Sodium 145 mEq/L 136 - 145 Potassium 4.3 mEq/L 3.5 - 5.1 Chloride 100 mEq/L 98 - 107 Carbon Dioxide 38 mEq/L High 21 - 32 Calcium 9.4 mg/dL 8.5 - 10.1 GFR 54 mL/min Low >60 GFR >= 60 mL/min >60 3 Laboratory test finding 07/19/2020 [facility] [address] [place], [place] [address] [phone] Bedside Glucose 105 mg/dL Normal 83-110 CBC With Differential 07/19/2020 [facility] [address] [place] [address] [phone] White Blood Count 10.5 10 High 4.0-10.0 [...] 36.0-66.0 Lymph % 15.8 % Low 24.0-44.0 Huron % 5.8 % High 0.0-5.0 Eos % 3.0 % Normal 0.0-3.0 Baso % 0.5 % Normal 0.0-1.0 Immature Granulocyte % 0.4 % Normal 0-3.0 Nucleated Red Blood Cell % 0.0 % Normal 0-0 Neutrophils # 7.8 10 Normal 1.5-8.5 Lymph # 1.7 10 Normal 1.5-5.0 Huron # 0.6 10 Normal 0.0-0.8 Eos # 0.3 10 Normal 0.0-0.5 Baso # 0.1 10 Normal 0.0-0.2 Prothrombin Time/Inr 07/19/2020 [facility] [address] [place] [address] [phone] Prothrombin Time 16.7 seconds High 12.5-14.3 Inr 1.32 Normal 4 Laboratory test finding 07/19/2020 [facility] [address] [place] [address] [phone] Partial Thromboplastin Time 43.2 seconds High 24 .2-38.5 Cardiac Marker Panel 07/19/2020 [facility] [address] [place] [address] [phone] CPK Creatine Phosphokinase 38 U/L Normal 26-19 2 CK-MB Value Mass < 1.0 NG/ML Normal <3.6 MB/CK Relative Index 2.63 Normal < Or =4 5 Troponin I < 0.02 NG/ML Normal < 0.10 6 Basic Metabolic Profile 07/19/2020 [place] [address] [phone] Glucose, Fasting 131 mg/dL High 70-100 Blood Urea Nitrogen 21 mg/dL High 7-18 Creatinine For GFR 1.02 mg/dL Normal 0.55-1.30 Glomerular Filtration Rate 55.9 Normal >39 7 Sodium Level 141 mEq/L Normal 136-145 Potassium Serum 3.6 mEq/L Normal 3.5-5.1 Chloride Level 101 mEq/L Normal 98-107 Carbon Dioxide Level 38 mEq/L High 21-32 Anion Gap 2 mEq/L Low 8-16 Calcium Level 8.9 mg/dL Normal 8.8-10.2 Laboratory test finding 07/19/2020 [place] [address] [phone] Magnesium Level 1.6 mg/dL Low 1.8-2.4 Thyroid Stimulating Hormone 1.440 uIU/ML Normal 0.358-3.740 Free T4 1.05 ng/dL Normal 0.76-1.46 Basic Metabolic Panel 06/22/2020 [facility] Government Affairs Specialist: [place] [address] [phone] Glucose 131 mg/dL High 74 - 99 8 BUN 26 mg/dL High 7 - 18 Creatinine 1.1 mg/dL 0.6 - 1.3 Sodium 145 mEq/L 136 - 145 Potassium 3.1 mEq/L Low 3.5 - 5.1 Chloride 102 mEq/L 98 - 107 Carbon Dioxide 36 mEq/L High 21 - 32 Calcium 8.8 mg/dL 8.5 - 10.1 GFR 48 mL/min Low >60 GFR 58 mL/min Low >60 9 Basic Metabolic Panel 06/08/2020 [facility] Government Affairs Specialist: [place] [address] [phone] Glucose 110 mg/dL High 74 - 99 10 BUN 18 mg/dL 7 - 18 Creatinine 0.9 mg/dL 0.6 - 1.3 Sodium 141 mEq/L 136 - 145 Potassium 3.6 mEq/L 3.5 - 5.1 Chloride 101 mEq/L 98 - 107 Carbon Dioxide 35 mEq/L High 21 - 32 Calcium 9.0 mg/dL 8.5 - 10.1 GFR >= 60 mL/min >60 GFR >= 60 mL/min >60 11 Laboratory test finding 06/08/2020 [facility] Government Affairs Specialist: Dr Murali Castorena [place], [place] [id number] [phone] B-Type Natriuretic Peptide 189.0 pg/mL High 0.0 - 100.0 Arterial Blood Gas 05/27/2020 [facility] [address] [place] [address] [phone] ABG pH (Arterial) 7.402 units Normal 7.350-7.450 ABG Partial Pressure Co2 56.9 mmHg High 35.0-45.0 ABG Partial Pressure O2 131.8 mmHg High 75.0-100.0 ABG Total Co2 36.4 mEq/L High 23.0-31.0 ABG Hco3 34.6 mEq/L High 22.0-26.0 ABG Base Excess 7.9 High -2.0-2.0 ABG Standard Hco3 31.8 mEq/L High 22.0-26.0 ABG O2 Saturation 98.9 % Normal 95.0-99.0 CBC With Differential 05/27/2020 [facility] [address] [place] [address] [phone] White Blood Count 11.7 10 High 4.0-10.0 [...] 36.0-66.0 Lymph % 9.5 % Low 24.0-44.0 Huron % 4.9 % Normal 0.0-5.0 Eos % 1.3 % Normal 0.0-3.0 Baso % 0.4 % Normal 0.0-1.0 Immature Granulocyte % 0.5 % Normal 0-3.0 Nucleated Red Blood Cell % 0.0 % Normal 0-0 Neutrophils # 9.8 10 High 1.5-8.5 Lymph # 1.1 10 Low 1.5-5.0 Huron # 0.6 10 Normal 0.0-0.8 Eos # 0.2 10 Normal 0.0-0.5 Baso # 0.1 10 Normal 0.0-0.2 Prothrombin Time/Inr 05/27/2020 [facility] [address] [place], [place] [address] [phone] Prothrombin Time 16.2 seconds High 11.8-14.0 Inr 1.28 Normal 12 Cardiac Marker Panel 05/27/2020 [facility] [address] [place] [address] [phone] CPK Creatine Phosphokinase 32 U/L Normal 26-19 2 CK-MB Value Mass 1.1 NG/ML Normal <3.6 MB/CK Relative Index 3.44 Normal < Or =4 13 Troponin I < 0.02 NG/ML Normal < 0.10 14 Liver Profile 05/27/2020 [facility] n[facility] [address] [place] [address] [phone] Ast/Sgot 10 U/L Normal 7-37 Alt/SGPT 11 U/L Low 12-78 Alkaline Phosphatase 79 U/L Normal 45-117 Bilirubin,Total 1.1 mg/dL High 0.2-1.0 Bilirubin,Direct 0.4 mg/dL High 0.0-0.2 Total Protein 6.5 GM/DL Normal 6.4-8.2 Albumin 3.3 GM/DL Normal 3.2-5.2 Albumin/Globulin Ratio 1.0 Low 1.2-2.2 Basic Metabolic Profile 05/27/2020 [facility] [address] [place] [address] [phone] Glucose, Fasting 118 mg/dL High 70-100 Blood Urea Nitrogen 15 mg/dL Normal 7-18 Creatinine For GFR 0.69 mg/dL Normal 0.55-1.30 Glomerular Filtration Rate > 60.0 Normal >39 1 5 Sodium Level 142 mEq/L Normal 136-145 Potassium Serum 3.8 mEq/L Normal 3.5-5.1 Chloride Level 98 mEq/L Normal 98-107 Carbon Dioxide Level 42 mEq/L High 21-32 Anion Gap 2 mEq/L Low 8-16 Calcium Level 9.0 mg/dL Normal 8.8-10.2 Laboratory test finding 05/27/2020 [facility] [address] [place] [address], [place] [address] [phone] NT-Pro BNP 2410 pg/mL High <450 Respiratory Panel 05/27/2020 [facility] [address] [place] [address] [phone] Respiratory Panel This respiratory <SEE NOTE> 16 1 NOTE: RESULT VERIFIED. 2 100-125 mg/dL PRE-DIABET ES/FASTING >126 mg/dL DIABETES/FASTING 3 CHRONIC KIDNEY DISEASE STAGI NG PER NKF STAGE I & II GFR >= 60 NORMAL TO MILDLY DECREASED STAGE III GFR 30-59 MODERATELY DECREASED STAGE IV GFR 15-29 SEVERELY DECREASED STAGE V GFR <15 VERY LITTLE GFR LEFT ESRD GFR <15 ON SYSTEMS PROGRAM MANAGER 4 THERAPUTIC HUMAN INR VALUES INDICATIONS NORMAL RANGES PROPHYLAXIS/TREATMENT OF: VENOUS THROMBOSIS 2.0-3.0 PULMONARY EMBOLISM 2.0-3.0 PREVENTION OF SYSTEMIC EMBOLISM FROM: TISSUE HEART VALVES 2.0-3.0 ACUTE MYOCARDIAL INFARCTION 2.0-3.0 VALVULAR HEART DISEASE 2.0-3.0 ATRIAL FIBRILLATION 2.0-3.0 MECHANICAL VALVES(HIGH RISK) 2.5-3.5 RECURRENT MYOCARDIAL INFARCTION 2.5-3.5 5 DIAGNOSIS CRITERIA MMB ng/ml Relative Index (RI) NON-AMI < or = 5 N/A MEYER ZONE > 5 < or = 4 AMI > 5 > 4 6 Troponin I Reference Interva l for [employer] LOCI: 99th Percentile= 0.00-0.045 ng/ml Risk Stratification: <= 0.10 ng/ml Decreased Risk for Adverse Clinical Events. 0.10-1.50 ng/ml Increased Risk for Adv erse Clinical Events. Evaluation of additional criterion and/or repeat testing in 2-6 hours is suggested to rule out myocardial damage. >= 1.50 ng/ml Indicative of Myocardial Injury. 7 Units are mL/min/1.73 m2 Chronic Kidney Disease Staging per NKF: Stage I & II GFR >=60 Normal to Mildly Decreased Stage III GFR 30-59 Moderately Decreased Stage IV GFR 15-29 Severely Decreased Stage V GFR <15 Very Little GFR Left ESRD GFR <15 on SYSTEMS PROGRAM MANAGER 8 100-125 mg/dL PRE-DIABET ES/FASTING >126 mg/dL DIABETES/FASTING 9 CHRONIC KIDNEY DISEASE STAGI NG PER NKF STAGE I & II GFR >= 60 NORMAL TO MILDLY DECREASED STAGE III GFR 30-59 MODERATELY DECREASED STAGE IV GFR 15-29 SEVERELY DECREASED STAGE V GFR <15 VERY LITTLE GFR LEFT ESRD GFR <15 ON SYSTEMS PROGRAM MANAGER 10 100-125 mg/dL PRE-DIABET ES/FASTING >126 mg/dL DIABETES/FASTING 11 CHRONIC KIDNEY DISEASE STAGI NG PER NKF STAGE I & II GFR >= 60 NORMAL TO MILDLY DECREASED STAGE III GFR 30-59 MODERATELY DECREASED STAGE IV GFR 15-29 SEVERELY DECREASED STAGE V GFR <15 VERY LITTLE GFR LEFT ESRD GFR <15 ON SYSTEMS PROGRAM MANAGER 12 THERAPUTIC HUMAN INR VALUES INDICATIONS NORMAL RANGES PROPHYLAXIS/TREATMENT OF: VENOUS THROMBOSIS 2.0-3.0 PULMONARY EMBOLISM 2.0-3.0 PREVENTION OF SYSTEMIC EMBOLISM FROM: TISSUE HEART VALVES 2.0-3.0 ACUTE MYOCARDIAL INFARCTION 2.0-3.0 VALVULAR HEART DISEASE 2.0-3.0 ATRIAL FIBRILLATION 2.0-3.0 MECHANICAL VALVES(HIGH RISK) 2.5-3.5 RECURRENT MYOCARDIAL INFARCTION 2.5-3.5 13 DIAGNOSIS CRITERIA MMB ng/ml Relative Index (RI) NON-AMI < or = 5 N/A MEYER ZONE > 5 < or = 4 AMI > 5 > 4 14 Troponin I Reference Interva l for [employer] LOCI: 99th Percentile= 0.00-0.045 ng/ml Risk Stratification: <= 0.10 ng/ml Decreased Risk for Adverse Clinical Events. 0.10-1.50 ng/ml Increased Risk for Adv erse Clinical Events. Evaluation of additional criterion and/or repeat testing in 2-6 hours is suggested to rule out myocardial damage. >= 1.50 ng/ml Indicative of Myocardial Injury. 15 Units are mL/min/1.73 m2 Chronic Kidney Disease Staging per NKF: Stage I & II GFR >=60 Normal to Mildly Decreased Stage III GFR 30-59 Moderately Decreased Stage IV GFR 15-29 Severely Decreased Stage V GFR <15 Very Little GFR Left ESRD GFR <15 on SYSTEMS PROGRAM MANAGER 16 This respiratory PCR panel d etects Influenza A H1, H3 and 2009 H1 viruses, Influenza B virus, Resp iratory Syncytial Virus, Human metapneumovirus, Parainfluenza virus 1, 2, 3 and 4, Adenovirus, Rhinovirus/Enterovirus, Coronavirus HKU1, NL63, OC43, 229E and SARS-CoV-2 (COVID 19), Bordetella pertussis, Bordetella parapertussis, Mycoplasma pneumoniae and Chlamydia pneumoniae. NEGATIVE by MULTIPLEXED NUCLEIC ACID PCR SARS-CoV-2 (COVID 19) NEGATIVE - SARS-CoV-2 (COVID19) Procedures Date Code Description Status 06/06/2018 [id number] Bone Mineral Density Test Comple angela 06/06/2018 [id number] Mammogram Completed 03/09/2017 [id number] Mammogram Completed 07/11/2016 [id number] Mammogram Completed 03/10/2015 [id number] Mammogram Completed 02/19/2015 [id number] Mammogram Completed 08/28/2013 [id number] Bone Mineral Density Test Comple angela 08/28/2013 [id number] Mammogram Completed Medical Devices Description No Information Available Encounters Type Date Location Provider Dx Diagnosis Office Visit 06/22/2020 3:20p [facility] I50.32 Chronic diastolic (congestiv e) heart failure J44.9 Chronic obstructive pulmonar y disease, unspecified I10 Essential (primary) hyperten lisa Office Visit 06/08/2020 10:40a [facility] [place] J44.9 Chronic obstructive [...] pulmonary di sease, unspecified TEJAS Casillas JR 11/04/2020 I10 Essential (primary) hypertension TEJAS Casillas JR 11/04/2020 I48.0 Paroxysmal atrial fibrillation R TEJAS Castillo JR 11/04/2020 M15.9 Polyosteoarthritis, unspecified TEJAS Casillas JR 11/04/2020 F41.9 Anxiety disorder, unspecified TEJAS Condon JR 11/04/2020 K59.00 Constipation, unspecified TEJAS Casillas JR 06/22/2020 I50.32 Chronic diastolic (congestive) h eart [...] 1:00 pm - TEJAS Casillas JR at [facility] 11/04/2020 - TEJAS Casillas JR* [...]
--- OUTSIDE RECORDS SUMMARY | 2020-11-11 05:36 | CCD ---
Author Author [facility] Organization [facility] Address Unknown Phone Unavailable Care Team Providers Care Cotton Farmer Name Role Phone Delroy, M Della RPA [...] Unavailable Delroy, M Della RPA Unavailable Unavailable Edlroy, M Della RPA Unavailable Unavailable Delroy, M [...] MD Unavailable Unavailable RubyRudi MD Unavailable Unavailable UrbyRudi MD Unavailable Unavailable [...] is protected by Article 27-F of the [facility] Public Health law. If you continue you may have access to information: Regarding HIV / AIDS; Provided by facilities licensed or operated by the [facility] Office of Mental Health; or Provided by the [facility] Office for People With Developmental Disabilities. If such information is present, then the following [facility] mandated warning applies: This information has [...] law may result in a fine or nursing home sentence or both. A general authorization for the release of medical or other information is NOT sufficient authorization for further disc losure. Family History Family Member Name Family Member Gender Family Member Status Date o f Status Description Data Source(s) Unknown Unknown Problem [facility] ([facility]) Unknown Female Problem [facility] ([facility]) Unknown Male Problem [facility] Unknown Female Problem [facility] ([facility]) Encounters Encounter Providers Location Date Indications Data Source(s ) Outpatient Attender: DELFIN Cary 1 03:20:00 PM EDT [facility] ([facility] ) Outpatient Attender: DELFIN Cary 0 06/08/2020 10:40:00 AM EDT [facility] ([facility] ) Outpatient Attender: Della Potts [facility] 02/25/2020 07:37:44 PM EDT [facility] Outpatient Attender: DELFIN Cary 0 02/24/2020 02:40:00 PM EDT [facility] ([facility] ) Outpatient Attender: Shanta Cary 11:45:00 AM EDT [facility] ([facility] ) Medications Medication Brand Name Start Date Product Form Dose Route Admi nistrative Instructions Pharmacy Instructions Status Indications Reaction Description Data Source(s) 5 mg 11/05/2020 12:00:00 AM EST tablet 90 TAKE ONE TABLET BY MOUTH THREE TIMES A DAY NEEDED FOR ANXIETY MAXIMUM DAILY DOSE = 3 TABLETS TAKE ONE TABLET BY MOUTH THREE TIMES A DAY NEEDED FOR ANXIETY MAXIMUM DAILY DOSE = 3 TABLETS SOLD: 11/05/2020 [facility] 7.5-325 mg 11/04/2020 12:00:00 AM EST tablet 90 TAKE ONE TABLET BY MOUTH THREE TIMES A DAY NEEDED FOR PAIN MAXIMUM DAILY DOSE = 3 TABLETS TAKE ONE TABLET BY MOUTH THREE TIMES A DAY NEEDED FOR PAIN MAXIMUM DAILY DOSE = 3 TABLETS SOLD: 11/05/2020 [facility] 18 mcg 10/29/2020 12:00:00 AM EST capsule, w/inhalation d evice 30 INHALE THE CONTENTS OF ONE CAPSULE VIA HANDIHALER BY MOUTH EVERY DAY INHALE THE CONTENTS OF ONE CAPSULE VIA HANDIHALER BY MOUTH EVERY DAY SOLD: 10/29/2020 [facility] 25 mg 10/29/2020 12:00:00 AM EST tablet 30 TAKE ONE TABLET BY MOUTH EVERY DAY TAKE ONE TABLET BY MOUTH EVERY DAY SOLD: 10/29/2020 [facility] 5 mg 10/29/2020 12:00:00 AM EST tablet 33 TAKE SIX TABLETS BY MOUTH ON 10/30 AND 10/31, TAKE 4 TABLETS ON 11/01-11/03, TAKE TWO TABLETS ON 11/04-11/06 AND TAKE ONE TABLET ON TAKE SIX TABLETS BY MOUTH ON 10/30 AND , TAKE 4 TABLETS ON , TAKE TWO TABLETS ON 11/04-11/06 AND TAKE ONE TABLET ON SOLD: 10/29/2020 [facility] 25 mg 10/12/2020 12:00:00 AM EST tablet 30 TAKE ONE TABLET BY MOUTH TWICE A DAY TAKE ONE TABLET BY MOUTH TWICE A DAY SOLD: 11/10/2020 [facility] 25 mg 10/12/2020 12:00:00 AM EST tablet 30 TAKE ONE TABLET BY MOUTH TWICE A DAY TAKE ONE TABLET BY MOUTH TWICE A DAY SOLD: 10/27/2020 [facility] 25 mg 10/12/2020 12:00:00 AM EST tablet 30 TAKE ONE TABLET BY MOUTH TWICE A DAY TAKE ONE TABLET BY MOUTH TWICE A DAY SOLD: 10/12/2020 [facility] Potassium Chloride 10 MEQ Extended Release Oral Tablet [Klor -Con] Klor-Con M10 10/05/2020 12:00:00 AM EST ORAL active [facility] ([facility]) 10 mEq 10/05/2020 12:00:00 AM EST tablet,ER particles/cry stals 30 TAKE ONE TABLET BY MOUTH EVERY MORNING TAKE ONE TABLET BY MOUTH EVERY MORNING SOLD: 10/12/2020 [facility] 5 mg 10/02/2020 12:00:00 AM EST tablet 90 TAKE ONE TABLET BY MOUTH THREE TIMES A DAY NEEDED MAXIMUM DAILY DOSE = 3 TABLETS TAKE ONE TABLET BY MOUTH THREE TIMES A DAY NEEDED MAXIMUM DAILY DOSE = 3 TABLETS SOLD: 10/05/2020 [facility] 7.5-325 mg 10/01/2020 12:00:00 AM EST tablet 90 TAKE ONE TABLET BY MOUTH THREE TIMES A DAY NEEDED FOR PAIN MAXIMUM DAILY DOSE = THREE TABLETS TAKE ONE TABLET BY MOUTH THREE TIMES A DAY NEEDED FOR PAIN MAXIMUM DAILY DOSE = THREE TABLETS SOLD: 10/05/2020 [facility] 5 mg 08/27/2020 12:00:00 AM EST tablet 90 TAKE ONE TABLET BY MOUTH THREE TIMES A DAY NEEDED FOR ANXIETY MAXIMUM DAILY DOSE = THREE TABLETS TAKE ONE TABLET BY MOUTH THREE TIMES A DAY NEEDED FOR ANXIETY MAXIMUM DAILY DOSE = THREE TABLETS SOLD: 09/01/2020 [facility] 7.5-325 mg 08/27/2020 12:00:00 AM EST tablet 90 TAKE ONE TABLET BY MOUTH THREE TIMES A DAY NEEDED FOR PAIN MAXIMUM DAILY DOSE = 3 TAKE ONE TABLET BY MOUTH THREE TIMES A DAY NEEDED FOR PAIN MAXIMUM DAILY DOSE = 3 SOLD: 08/27/2020 [facility] 20 mEq 07/31/2020 12:00:00 AM EST packet 60 TAKE TWO PACKETS BY MOUTH EVERY DAY TAKE TWO PACKETS BY MOUTH EVERY DAY SOLD: 07/31/2020 [facility] 500 mg 07/31/2020 12:00:00 AM EST capsule 30 TAKE ONE CAPSULE BY MOUTH THREE TIMES A DAY FOR 10 DAYS TAKE ONE CAPSULE BY MOUTH THREE TIMES A DAY FOR 10 DAYS SOLD: 07/31/2020 [facility] Klor-Con Klor-Con 07/31/2020 12:00:00 AM EST ORAL compl eted [facility] ([facility]) 60 ACTUAT Albuterol 0.09 MG/ACTUAT Metered Dose Inhaler Albu terol Sulfate HFA 07/24/2020 12:00:00 AM EST RESPIRATORY active [facility] ([facility]) 5 mg 07/23/2020 12:00:00 AM EST tablet [...] DAILY DOSE = 3 SOLD: 07/27/2020 [facility] Meclizine Hydrochloride 25 MG Oral Tablet MECLIZINE [...] [facility] 07/17/2020 12:00:00 AM EDT ORAL completed [facility] ([facility]) Potassium Chloride 20 MEQ Extended Release Oral Tablet Potassium Chloride [facility] 06/23/2020 12:00:00 AM EDT ORAL completed [facility] ([facility]) 20 mg 06/19/2020 12:00:00 AM EDT [...] DAILY DOSE = 3 TABLETS SOLD: 06/18/2020 [facility] 7.5-325 mg 06/15/2020 12:00:00 AM EDT tablet 90 TAKE ONE TABLET BY MOUTH THREE TIMES A DAY NEEDED FOR PAIN MAXIMUM DAILY DOSE = 3 TAKE ONE TABLET BY MOUTH THREE TIMES A DAY NEEDED FOR PAIN MAXIMUM DAILY DOSE = 3 SOLD: 06/18/2020 [facility] Furosemide 20 MG Oral Tablet Furosemide 06/12/2020 12:00:00 AM EDT ORAL completed [facility] ([facility]) tiotropium 0.018 MG/ACTUAT Inhalant Powder [Spiriva] Spiriva Handihaler 06/08/2020 12:00:00 AM EDT active [facility] ([facility]) Furosemide 20 MG Oral Tablet Furosemide 06/08/2020 12:00:00 AM EDT ORAL active [facility] ([facility]) 20 mg 06/08/2020 12:00:00 AM EDT [...] DOSE = THREE TABLETS SOLD: 03/20/2020 [facility] 7.5-325 mg 03/17/2020 12:00:00 AM EDT tablet 90 TAKE ONE TABLET BY MOUTH THREE TIMES A DAY NEEDED FOR PAIN MAXIMUM DAILY DOSE = THREE TABLETS TAKE ONE TABLET BY MOUTH THREE TIMES A DAY NEEDED FOR PAIN MAXIMUM DAILY DOSE = THREE TABLETS SOLD: 03/20/2020 [facility] 20 mg 02/25/2020 12:00:00 AM EDT tablet 4 TAKE ONE TABLET BY MOUTH EVERY DAY FOR 3 DAYS THEN 1/2 TABLET ONCE DAILY FOR 2 DAYS TAKE ONE TABLET BY MOUTH EVERY DAY FOR 3 DAYS THEN 1/2 TABLET ONCE DAILY FOR 2 DAYS SOLD: 02/25/2020 [facility] Prednisone 20 MG Oral Tablet Prednisone 02/24/2020 12:00:00 AM EDT ORAL active [facility] ([facility]) 20 mg 02/24/2020 12:00:00 AM EDT tablet 8 TAKE TWO TABLETS BY MOUTH EVERY DAY TAKE TWO TABLETS BY MOUTH EVERY DAY SOLD: 02/24/2020 [facility] Amoxicillin 500 MG Oral Capsule Amoxicillin 02/21/2020 12:00:00 AM EDT active [facility] ([facility]) 500 mg 02/21/2020 12:00:00 AM EDT [...] DAILY DOSE = THREE TABLETS SOLD: 02/21/2020 [facility] 7.5-325 mg 01/15/2020 12:00:00 AM [...] DAILY DOSE = THREE TABLETS SOLD: 09/30/2019 [facility] 7.5-325 mg 09/27/2019 12:00:00 AM EST tablet 90 TAKE ONE TABLET BY MOUTH THREE TIMES A DAY NEEDED FOR PAIN MAXIMUM DAILY DOSE = THREE TABLETS TAKE ONE TABLET BY MOUTH THREE TIMES A DAY NEEDED FOR PAIN MAXIMUM DAILY DOSE = THREE TABLETS SOLD: 09/30/2019 [facility] Insurance Providers Payer name Policy type / Coverage type Policy ID Covered libertarian ID Covered libertarian's relationship to zhang Policy Zhang Plan Information [facility]MR [facility] [id number] SP [id number] MEDICARE [id number] SP [id number] UMR O [id number] S [id number] MEDICARE [id number] S [id number] [place] S [id number] S [id number] Medicare P [id number] S [id number] A [place]/Umr (Old) Medigap Part B [id number] Self [id number] Medicare Natl Govt Servic Medicare Primary [id number] Self [id number] Umr (New [place]) Medigap Part B [id number] Self [id number] [place] [id number] Self [id number] Umr Medigap Part B [id number] Self [id number] UMR [facility] [id number] SP [id number] [place] Primary [id number] Self [id number] [place] (Old) Medigap Part B [id number] Self [id number] Medicare [place] Govt Servic Medicare Primary [id number] Self [id number] [place] (Old) Medigap Part B [id number] Self [id number] Medicare [place] Govt Servic Medicare Primary [id number] Self [id number] [place] (Old) Medigap Part B [id number] Self [id number] Medicare [place] Govt Servic Medicare Primary [id number] Self [id number] POMCO [id number] SP [id number] MEDICARE [id number] SP [id number] A [place] (Old) Medigap Part B [id number] Self [id number] Medicare [place]l Govt Servic Medicare Primary [id number] Self [id number] [place] Ppo Medigap Part B [id number] Self [id number] Medicare [place] Govt Servic Medicare Primary [id number] Self [id number] [place] Ppo Medigap Part B [id number] Self [id number] Medicare [place] Govt Servic Medicare Primary [id number] Self [id number] [place] Ppo Medigap Part B [id number] Self [id number] Medicare [place] Govt Servic Medicare Primary [id number] Self [id number] [place] Ppo Medigap Part B [id number] Self [id number] Medicare [place] Govt Servic Medicare Primary [id number] Self [id number] [place] Ppo Medigap Part B [id number] Self [id number] Medicare [place] Govt Servic Medicare Primary [id number] Self [id number] [place] Ppo Medigap Part B [id number] Self [id number] Medicare [place]l Govt Servic Medicare Primary [id number] Self [id number] [place] PPO O [id number] S [id number] MEDICARE C [id number] S [id number] A [facility] C [id number] S [id number] [place] Ppo Medigap Part B [id number] Self [id number] Medicare [place]l Govt Servic Medicare Primary [id number] Self [id number] [place] (pr) Medigap Part B Self Medicare [facility] Medicare Primary Self [place] Ppo Medigap Part B 335 Self 335 Medicare [place]l Govt Servic Medicare Primary Self [place] Medigap Part B 335 Self 335 [place] Medicare Primary Self POMCO [id number] SP [id number] POMCO [id number] SP [id number] [employer]OM[employer] PPO S [id number] S [id number] POMCO [id number] SP [id number] A [id number] Results ID Date Data Source [id number] 11/04/2020 01:31:00 PM EST [facility] ([facility]) Name Value Range Interpretation Code Description Data Meseret e(s) Supporting Document(s) Glucose [Mass/volume] in Serum or Plasma 145 mg/dL 74-99 [facility] ([facility]) 100-125 mg/dL PRE-DIABETES/FASTING >126 mg/dL DIABETES/FASTING Creatinine 1.0 mg/dL 0.6-1.3 [facility] ([facility]) Urea nitrogen [Mass/volume] in Serum or Plasma 31 mg/dL 7-18 [facility] ([facility]) Sodium [Moles/volume] in Serum or Plasma 145 meq/L 136-145 [facility] ([facility]) Potassium [Moles/volume] in Serum or Plasma 4.3 meq/L 3.5-5.1 [facility] ([facility]) Chloride [Moles/volume] in Serum or Plasma 100 meq/L 98-107 [facility] ([facility]) Carbon dioxide, total [Moles/volume] in Serum or Plasma 38 meq/L 21 -32 [facility] Glomerular filtration rate/1.73 sq M pre dicted among non-blacks [Volume Rate/Area] in Serum or Plasma by Creatinine-based formula (MDRD) 54 mL/min [facility] Glomerular filtration rate/1.73 sq M pre dicted among blacks [Volume Rate/Area] in Serum or Plasma by Creatinine-based formula (MDRD) Laboratory test result [facility] <content>CHRONIC KIDNEY DISEASE STAGING PER NKF</content>
<content></content>
<content>STAGE I & II GFR >= 60 NORMAL TO MILDLY DECREASED</content>
<content>STAGE III GFR 30-59 MODERATELY DECREASED</content>
<content>STAGE IV GFR 15-29 SEVERELY DECREASED</content>
<content>STAGE V GFR <15 VERY LITTLE GFR LEFT</content>
<content>ESRD GFR <15 ON EVALUATOR TRANSFER STUDENTS</content>
<content></content> Calcium [Mass/volume] in Serum or Plasma 9.4 mg/dL 8.5-10.1 [facility] ([facility]) ID Date Data Source [id number] 11/04/2020 01:31:00 PM EST [facility] ([facility]) Name Value Range Interpretation Code Description Data Meseret rce(s) Supporting Document(s) Leukocytes [#/volume] in Blood by Automated count 15.3 x10*3/UL 4.1-1 0.9 [facility] ([facility]) NOTE: RESULT VERIFIED. Erythrocytes [#/volume] in Blood by Automated count 4.72 x10*6/UL 4.2 0-6.30 [facility] ([facility]) Hemoglobin [Mass/volume] in Blood 14.5 g/dL 12.0-18.0 [facility] Hematocrit [Volume Fraction] of Blood by Automated count 44.3 % 3 7.0-51.0 [facility] MCV 93.8 fL 80.0-97.0 [facility] ([facility]) Erythrocyte distribution width [Ratio] by Automated count 13.5 % 11.6-13.7 [facility] ([facility]) MCH 30.8 pg 26.0-32.0 [facility] MCHC 32.8 g/dL 31.0-38.0 [facility] ([facility]) Platelets [#/volume] in Blood by Automated count 147 x10*3/UL 140-440 [facility] ([facility]) MPV 9.2 FL 7.8-11.0 [facility]) Lymph % 8.3 % 10.0-58.5 [facility] ([facility]) Neut % 89.4 % 37.0-92.0 [facility]) Lymph # 1.2 x10*3/UL 0.6-4.1 [facility] ([facility]) Mid % 2.3 % 1.7-9.3 [facility]) Mid # 0.4 x10*3/UL 0.1-0.6 [facility] ([facility]) Neut # 13.7 x10*3/UL 2.0-7.8 [facility] ([facility]) ID Date Data Source [id number] 10/28/2020 01:29:00 PM EST [facility] Name Value Range Interpretation Code Description Data Meseret rce(s) Supporting Document(s) SARS-CoV-2 (COVID 19) NEGATIVE - SARS-CoV-2 (COVID19) [facility] This lab was ordered by [facility] a nd reported by [facility]. ID Date Data Source [id number] 10/18/2020 01:00:00 AM EST [facility] Name Value Range Interpretation Code Description Data Meseret rce(s) Supporting Document(s) SARS coronavirus 2 RNA [Presence] in Res piratory specimen by NAINA with probe detection NEGATIVE [facility] This lab was ordered by [facility] a nd reported by [facility]. ID Date Data Source [id number] 07/19/2020 10:17:00 AM EST [facility] ([facility]) Name Value Range Interpretation Code Description Data Meseret rce(s) Supporting Document(s) Bedside Glucose 105 mg/dL 83-110 [facility] ([facility]) ID Date Data Source [id number] 07/19/2020 09:49:00 AM EST [facility] ([facility]) Name Value Range Interpretation Code Description Data Meseret rce(s) Supporting Document(s) Magnesium [Moles/volume] in Serum or Plasma 1.6 mg/dL 1.8-2.4 [facility] ([facility]) Thyrotropin [Units/volume] in Serum or Plasma by Detec tion limit <= 0.05 mIU/L 1.440 uIU/ML 0.358-3.740 [facility] ([facility] ) Thyroxine (T4) free [Mass/volume] in Serum or Plasma 1.05 ng/dL 0.76- 1.46 [facility] ([facility]) ID Date Data Source [id number] 07/19/2020 09:49:00 AM EST [facility] ([facility]) Name Value Range Interpretation Code Description Data Meseret rce(s) Supporting Document(s) Blood Urea Nitrogen 21 mg/dL 7-18 [facility] ([facility]) Glucose, Fasting 131 mg/dL 70-100 [facility] ([facility]) Glomerular Filtration Rate 55.9 [facility] ([facility]) <content>Units are mL/min/1.73 m2</content>
<content></content>
<content>Chronic Kidney Disease Staging per NKF:</content>
<content></content>
<content>Stage I & II GFR >=60 Normal to Mildly Decreased</content>
<content>Stage III GFR 30- 59 Moderately Decreased</content>
<content>Stage IV GFR 15-29 Severely Decreased</content>
<content>Stage V GFR <15 Very Little GFR Left</content>
<content>ESRD GFR <15 on EVALUATOR TRANSFER STUDENTS</content>
<content></content> Sodium Level 141 meq/L 136-145 [facility] ([facility]) Creatinine For GFR 1.02 mg/dL 0.55-1.30 [facility] ([facility]) Potassium Serum 3.6 meq/L 3.5-5.1 [facility] ([facility]) Chloride Level 101 meq/L 98-107 [facility] ([facility]) Carbon Dioxide Level 38 meq/L 21-32 [facility] ([facility]) Anion Gap 2 meq/L 8-16 [facility] Calcium Level 8.9 mg/dL 8.8-10.2 [facility] ([facility]) ID Date Data Source [id number] 07/19/2020 09:49:00 AM EST [facility] ([facility]) Name Value Range Interpretation Code Description Data Mesreet rce(s) Supporting Document(s) CK-MB Value Mass Laboratory test result [facility] ([facility]) CPK Creatine Phosphokinase 38 U/L 26-192 [facility] ([facility]) MB/CK Relative Index 2.63 [facility] ([facility]) <content>DIAGNOSIS CRITERIA</content>
<content>MMB ng/ml Relative Index (RI)</content>
<content>NON-AMI < or = 5 N/A</content>
<content>MEYER ZONE > 5 < or = 4</content>
<content>AMI > 5 > 4</content>
<content></content> Troponin I Laboratory test result [facility] ([facility]) <content>Troponin I Reference Interval f or Siemens Walker LOCI:</content>
<content></content>
<content>99th Percentile= 0.00-0.045 ng/ml</content>
<content></content>
<content>Risk Stratification:</content>
<content><= 0.10 ng/ml Decreased Risk for Adverse Clinical</content>
<content>Events.</content>
<content>0.10-1.50 ng/ml Increased Risk for Adverse Clinical</content>
<content>Events. Evaluation of additional</content>
<content>criterion and/or repeat testing in 2-6</content>
<content>hours is suggested to rule out myocardial</content>
<content>damage.</content>
<content>>= 1.50 ng/ml Indicative of Myocardial Injury.</content>
<content></content> ID Date Data Source [id number] 07/19/2020 09:49:00 AM EST [facility] ([facility]) Name Value Range Interpretation Code Description Data Meseret rce(s) Supporting Document(s) aPTT in Blood by Coagulation assay 43.2 s 24.2-38.5 [facility] ([facility]) ID Date Data Source [id number] 07/19/2020 09:49:00 AM EST [facility] ([facility]) Name Value Range Interpretation Code Description Data Meseret rce(s) Supporting Document(s) Prothrombin Time 16.7 s 12.5-14.3 [facility] ([facility]) Inr 1.32 [facility]) THERAPUTIC HUMAN INR VALUES INDICATIONS NORMAL RANGES PROPHYLAXIS/TREATMENT OF: VENOUS THROMBOSIS 2.0-3.0 PULMONARY EMBOLISM 2.0-3.0 PREVENTION OF SYSTEMIC EMBOLISM FROM: TISSUE HEART VALVES 2.0-3.0 ACUTE MYOCARDIAL INFARCTION 2.0-3.0 VALVULAR HEART DISEASE 2.0-3.0 ATRIAL FIBRILLATION 2.0-3.0 MECHANICAL VALVES(HIGH RISK) 2.5-3.5 RECURRENT MYOCARDIAL INFARCTION 2.5-3.5 ID Date Data Source [id number] 07/19/2020 09:49:00 AM EST [facility] ([facility]) Name Value Range Interpretation Code Description Data Meseret rce(s) Supporting Document(s) White Blood Count 10.5 10 4.0-10.0 [facility] ([facility]) Hematocrit 43.2 % 36.0-47.0 [facility] Hemoglobin 13.3 g/dL 12.0-15.5 [facility] ([facility]) Red Blood Count 4.36 10 4.00-5.40 [facility] ([facility]) Mean Corpuscular Volume 99.1 fl 80.0-96.0 [facility] ([facility]) Mean Corpuscular HGB Conc 30.8 g/dL 32.0-36.5 [facility] ([facility]) Mean Corpuscular Hemoglobin 30.5 pg 27.0-33.0 [facility] ([facility]) Red Cell Distribution Width 13.2 % 11.5-14.5 [facility] ([facility]) Platelet Count, Automated 207 10 150-450 [facility] ([facility]) Neutrophils % 74.5 % 36.0-66.0 [facility] ([facility]) [place] % 5.8 % 0.0-5.0 [facility] Lymph % 15.8 % 24.0-44.0 [facility] Baso % 0.5 % 0.0-1.0 [facility]) Immature Granulocyte % 0.4 % 0-3.0 [facility] ([facility]) Eos % 3.0 % 0.0-3.0 [facility] Nucleated Red Blood Cell % 0.0 % 0-0 [facility] ([facility]) Lymph # 1.7 10 1.5-5.0 [facility] ([facility]) Neutrophils # 7.8 10 1.5-8.5 [facility] ([facility]) [place] # 0.6 10 0.0-0.8 [facility]) Baso # 0.1 10 0.0-0.2 [facility] ([facility]) Eos # 0.3 10 0.0-0.5 [facility] ([facility]) ID Date Data Source [id number] 06/22/2020 03:47:00 PM EDT [facility] ([facility]) Name Value Range Interpretation Code Description Data Meseret rce(s) Supporting Document(s) Urea nitrogen [Mass/volume] in Serum or Plasma 26 mg/dL 7-18 [facility] ([facility]) Glucose [Mass/volume] in Serum or Plasma 131 mg/dL 74-99 [facility] ([facility]) 100-125 mg/dL PRE-DIABETES/FASTING >126 mg/dL DIABETES/FASTING Sodium [Moles/volume] in Serum or Plasma 145 meq/L 136-145 [facility] ([facility]) Potassium [Moles/volume] in Serum or Plasma 3.1 meq/L 3.5-5.1 [facility] ([facility]) Creatinine 1.1 mg/dL 0.6-1.3 [facility] ([facility]) Carbon dioxide, total [Moles/volume] in Serum or Plasma 36 meq/L 21 -32 [facility] ([facility]) Chloride [Moles/volume] in Serum or Plasma 102 meq/L 98-107 [facility] ([facility]) Calcium [Mass/volume] in Serum or Plasma 8.8 mg/dL 8.5-10.1 [facility] ([facility]) Glomerular filtration rate/1.73 sq M pre dicted among blacks [Volume Rate/Area] in Serum or Plasma by Creatinine-based formula (MDRD) 58 mL/min [facility] ([facility]) <content>CHRONIC KIDNEY DISEASE STAGING PER NKF</content>
<content></content>
<content>STAGE I & II GFR >= 60 NORMAL TO MILDLY DECREASED</content>
<content>STAGE III GFR 30-59 MODERATELY DECREASED</content>
<content>STAGE IV GFR 15-29 SEVERELY DECREASED</content>
<content>STAGE V GFR <15 VERY LITTLE GFR LEFT</content>
<content>ESRD GFR <15 ON EVALUATOR TRANSFER STUDENTS</content>
<content></content> Glomerular filtration rate/1.73 sq M pre dicted among non-blacks [Volume Rate/Area] in Serum or Plasma by Creatinine-based formula (MDRD) 48 mL/min [facility] ([facility]) ID Date Data Source [id number] 06/08/2020 11:11:00 AM EDT [facility] ([facility]) Name Value Range Interpretation Code Description Data Meseret rce(s) Supporting Document(s) Natriuretic peptide B [Mass/volume] in Serum or Plasma 189.0 pg/mL 0.0-100.0 [facility] ([facility]) ID Date Data Source [id number] 06/08/2020 11:11:00 AM EDT [facility] ([facility]) Name Value Range Interpretation Code Description Data Meseret rce(s) Supporting Document(s) Glucose [Mass/volume] in Serum or Plasma 110 mg/dL 74-99 [facility] ([facility]) 100-125 mg/dL PRE-DIABETES/FASTING >126 mg/dL DIABETES/FASTING Urea nitrogen [Mass/volume] in Serum or Plasma 18 mg/dL 7-18 [facility] ([facility]) Sodium [Moles/volume] in Serum or Plasma 141 meq/L 136-145 [facility] ([facility]) Potassium [Moles/volume] in Serum or Plasma 3.6 meq/L 3.5-5.1 [facility] ([facility]) Creatinine 0.9 mg/dL 0.6-1.3 [facility] ([facility]) Carbon dioxide, total [Moles/volume] in Serum or Plasma 35 meq/L 21 -32 [facility] ([facility]) Chloride [Moles/volume] in Serum or Plasma 101 meq/L 98-107 [facility] ([facility]) Calcium [Mass/volume] in Serum or Plasma 9.0 mg/dL 8.5-10.1 [facility] ([facility]) Glomerular filtration rate/1.73 sq M pre dicted among non-blacks [Volume Rate/Area] in Serum or Plasma by Creatinine-based formula (MDRD) Laboratory test [facility] Glomerular filtration rate/1.73 sq M pre dicted among blacks [Volume Rate/Area] in Serum or Plasma by Creatinine-based formula (MDRD) Laboratory test result [facility] ([facility]) <content>CHRONIC KIDNEY DISEASE STAGING PER NKF</content>
<content></content>
<content>STAGE I & II GFR >= 60 NORMAL TO MILDLY DECREASED</content>
<content>STAGE III GFR 30-59 MODERATELY DECREASED</content>
<content>STAGE IV GFR 15-29 SEVERELY DECREASED</content>
<content>STAGE V GFR <15 VERY LITTLE GFR LEFT</content>
<content>ESRD GFR <15 ON EVALUATOR TRANSFER STUDENTS</content>
<content></content> ID Date Data Source [id number] 05/27/2020 07:44:00 AM EDT [facility] ([facility]) Name Value Range Interpretation Code Description Data Meseret rce(s) Supporting Document(s) ABG Partial Pressure Co2 56.9 mmHg 35.0-45.0 [facility] ([facility]) ABG pH (Arterial) 7.402 units 7.350-7.450 [facility] ( [facility]) ABG Total Co2 36.4 meq/L 23.0-31.0 [facility] ([facility]) ABG Partial Pressure O2 131.8 mmHg 75.0-100.0 [facility] ([facility]) ABG Hco3 34.6 meq/L 22.0-26.0 [facility] ABG O2 Saturation 98.9 % 95.0-99.0 [facility] ([facility]) ABG Standard Hco3 31.8 meq/L 22.0-26.0 [facility] ([facility]) ABG Base Excess 7.9 [facility] ([facility]) ID Date Data Source [id number] 05/27/2020 07:42:00 AM EDT [facility] ([facility]) Name Value Range Interpretation Code Description Data Meseret rce(s) Supporting Document(s) Respiratory Panel Laboratory test result [facility] This respiratory PCR panel detects Influ amarilis [...] - SARS-CoV-2 (COVID19) ID Date Data Source [id number] 05/27/2020 07:42:00 AM EDT [facility] ([facility]) Name Value Range Interpretation Code Description Data Meseret rce(s) Supporting Document(s) Natriuretic peptide.B prohormone N-Terminal [Mass/volu me] in Serum or Plasma 2410 pg/mL [facility] ([facility] ) ID Date Data Source [id number] 05/27/2020 07:42:00 AM ED [facility] ([facility]) Name Value Range Interpretation Code Description Data Meseret rce(s) Supporting Document(s) Blood Urea Nitrogen 15 mg/dL 7-18 [facility] ([facility]) Glucose, Fasting 118 mg/dL 70-100 [facility] ([facility]) Glomerular Filtration Rate Laboratory test result [facility] <content>Units are mL/min/1.73 m2</content>
<content></content>
<content>Chronic Kidney Disease Staging per NKF:</content>
<content></content>
<content>Stage I & II GFR >=60 Normal to Mildly Decreased</content>
<content>Stage III GFR 30- 59 Moderately Decreased</content>
<content>Stage IV GFR 15-29 Severely Decreased</content>
<content>Stage V GFR <15 Very Little GFR Left</content>
<content>ESRD GFR <15 on EVALUATOR TRANSFER STUDENTS</content>
<content></content> Sodium Level 142 meq/L 136-145 [facility] ([facility]) Creatinine For GFR 0.69 mg/dL 0.55-1.30 [facility] ([facility]) Potassium Serum 3.8 meq/L 3.5-5.1 [facility] ([facility]) Carbon Dioxide Level 42 meq/L 21-32 [facility] ([facility]) Chloride Level 98 meq/L 98-107 [facility] ([facility]) Calcium Level 9.0 mg/dL 8.8-10.2 [facility] ([facility]) Anion Gap 2 meq/L 8-16 [facility]) ID Date Data Source [id number] 05/27/2020 07:42:00 AM EDT [facility] ([facility]) Name Value Range Interpretation Code Description Data Meseret rce(s) Supporting Document(s) Alt/SGPT 11 U/L 12-78 [facility] ([facility]) Ast/Sgot 10 U/L 7-37 [facility] ([facility]) Alkaline Phosphatase 79 U/L 45-117 [facility] ([facility]) Bilirubin,Total 1.1 mg/dL 0.2-1.0 [facility] ([facility]) Total Protein 6.5 GM/DL 6.4-8.2 [facility] ([facility]) Bilirubin,Direct 0.4 mg/dL 0.0-0.2 [facility] ([facility]) Albumin 3.3 GM/DL 3.2-5.2 [facility] ([facility]) Albumin/Globulin Ratio 1.0 1.2-2.2 [facility] ([facility]) ID Date Data Source [id number] 05/27/2020 07:42:00 AM EDT [facility] ([facility]) Name Value Range Interpretation Code Description Data Meseret rce(s) Supporting Document(s) CPK Creatine Phosphokinase 32 U/L 26-192 [facility] ([facility]) CK-MB Value Mass 1.1 ng/mL [facility] ([facility]) Troponin I Laboratory test result [facility] <content>Troponin I Reference Interval f or Siemens Walker LOCI:</content>
<content></content>
<content>99th Percentile= 0.00-0.045 ng/ml</content>
<content></content>
<content>Risk Stratification:</content>
<content><= 0.10 ng/ml Decreased Risk for Adverse Clinical</content>
<content>Events.</content>
<content>0.10-1.50 ng/ml Increased Risk for Adverse Clinical</content>
<content>Events. Evaluation of additional</content>
<content>criterion and/or repeat testing in 2-6</content>
<content>hours is suggested to rule out myocardial</content>
<content>damage.</content>
<content>>= 1.50 ng/ml Indicative of Myocardial Injury.</content>
<content></content> MB/CK Relative Index 3.44 [facility] <content>DIAGNOSIS CRITERIA</content>
<content>MMB ng/ml Relative Index (RI)</content>
<content>NON-AMI < or = 5 N/A</content>
<content>MEYER ZONE > 5 < or = 4</content>
<content>AMI > 5 > 4</content>
<content></content> ID Date Data Source [id number] 05/27/2020 07:42:00 AM EDT [facility] ([facility]) Name Value Range Interpretation Code Description Data Meseret rce(s) Supporting Document(s) Prothrombin Time 16.2 s 11.8-14.0 [facility] ([facility]) Inr 1.28 [facility] ([facility]) THERAPUTIC HUMAN INR VALUES INDICATIONS NORMAL RANGES PROPHYLAXIS/TREATMENT OF: VENOUS THROMBOSIS 2.0-3.0 PULMONARY EMBOLISM 2.0-3.0 PREVENTION OF SYSTEMIC EMBOLISM FROM: TISSUE HEART VALVES 2.0-3.0 ACUTE MYOCARDIAL INFARCTION 2.0-3.0 VALVULAR HEART DISEASE 2.0-3.0 ATRIAL FIBRILLATION 2.0-3.0 MECHANICAL VALVES(HIGH RISK) 2.5-3.5 RECURRENT MYOCARDIAL INFARCTION 2.5-3.5 ID Date Data Source [id number] 05/27/2020 07:42:00 AM EDT [facility] ([facility]) Name Value Range Interpretation Code Description Data Meseret rce(s) Supporting Document(s) Hemoglobin 13.5 g/dL 12.0-15.5 [facility] ([facility]) White Blood Count 11.7 10 4.0-10.0 [facility] ([facility]) Red Blood Count 4.31 10 4.00-5.40 [facility] ([facility]) Mean Corpuscular Volume 101.4 fl 80.0-96.0 [facility] ([facility]) Mean Corpuscular Hemoglobin 31.3 pg 27.0-33.0 [facility] ([facility]) Hematocrit 43.7 % 36.0-47.0 [facility] ([facility]) Platelet Count, Automated 181 10 150-450 [facility] ([facility]) Red Cell Distribution Width 13.4 % 11.5-14.5 [facility] ([facility]) Mean Corpuscular HGB Conc 30.9 g/dL 32.0-36.5 [facility] ([facility]) Neutrophils % 83.4 % 36.0-66.0 [facility] ([facility]) Lymph % 9.5 % 24.0-44.0 [facility] ([facility]) [place] % 4.9 % 0.0-5.0 [facility] ([facility]) Nucleated Red Blood Cell % 0.0 % 0-0 [facility] ([facility]) Eos % 1.3 % 0.0-3.0 [facility]) Immature Granulocyte % 0.5 % 0-3.0 [facility] ([facility]) Baso % 0.4 % 0.0-1.0 [facility]) Lymph # 1.1 10 1.5-5.0 [facility]) Neutrophils # 9.8 10 1.5-8.5 [facility] ([facility]) [place] # 0.6 10 0.0-0.8 [facility]) Baso # 0.1 10 0.0-0.2 [facility]) Eos # 0.2 10 0.0-0.5 [facility] ID Date Data Source [id number] 02/23/2020 04:13:00 PM EDT [facility] ([facility]) Name Value Range Interpretation Code Description Data Meseret rce(s) Supporting Document(s) C reactive protein [Mass/volume] in Serum or Plasma by High sensitivity method 4.54 mg/dL 0.00-0.30 [facility] ([facility] ) Urate [Mass/volume] in Serum or Plasma 7.8 mg/dL 2.6-6.0 [facility] ([facility]) ID Date Data Source [id number] 02/23/2020 04:13:00 PM EDT [facility] ([facility]) Name Value Range Interpretation Code Description Data Meseret rce(s) Supporting Document(s) Creatinine For GFR 0.62 mg/dL 0.55-1.30 [facility] ([facility]) Glucose, Fasting 103 mg/dL 70-100 [facility] ([facility]) Blood Urea Nitrogen 17 mg/dL 7-18 [facility] ([facility]) Glomerular Filtration Rate Laboratory test result [facility] ([facility]) <content>Units are mL/min/1.73 m2</content>
<content></content>
<content>Chronic Kidney Disease Staging per NKF:</content>
<content></content>
<content>Stage I & II GFR >=60 Normal to Mildly Decreased</content>
<content>Stage III GFR 30- 59 Moderately Decreased</content>
<content>Stage IV GFR 15-29 Severely Decreased</content>
<content>Stage V GFR <15 Very Little GFR Left</content>
<content>ESRD GFR <15 on EVALUATOR TRANSFER STUDENTS</content>
<content></content> Chloride Level 101 meq/L 98-107 [facility] ([facility]) Sodium Level 144 meq/L 136-145 [facility] ([facility]) Potassium Serum 3.8 meq/L 3.5-5.1 [facility] ([facility]) Anion Gap 4 meq/L 8-16 [facility]) Calcium Level 8.2 mg/dL 8.8-10.2 [facility] ([facility]) Carbon Dioxide Level 39 meq/L 21-32 [facility] ([facility]) ID Date Data Source [id number] 02/23/2020 04:13:00 PM EDT [facility] ([facility]) Name Value Range Interpretation Code Description Data Meseret rce(s) Supporting Document(s) Erythrocyte sedimentation rate by Westergren method 25 mm/hr 0-30 [facility] ([facility]) ID Date Data Source [id number] 02/23/2020 04:13:00 PM EDT [facility] ([facility]) Name Value Range Interpretation Code Description Data Meseret rce(s) Supporting Document(s) White Blood Count 13.0 10 4.0-10.0 [facility] ([facility]) Hemoglobin 13.6 g/dL 12.0-15.5 [facility]) Red Blood Count 4.41 10 4.00-5.40 [facility] ([facility]) Hematocrit 44.2 % 36.0-47.0 [facility]) Mean Corpuscular Hemoglobin 30.8 pg 27.0-33.0 [facility] ([facility]) Red Cell Distribution Width 13.2 % 11.5-14.5 [facility] ([facility]) Mean Corpuscular Volume 100.2 fl 80.0-96.0 [facility] ([facility]) Mean Corpuscular HGB Conc 30.8 g/dL 32.0-36.5 [facility] ([facility]) Platelet Count, Automated 183 10 150-450 [facility] ([facility]) Neutrophils % 82.2 % 36.0-66.0 [facility] ([facility]) Lymph % 9.1 % 24.0-44.0 [facility]) Baso % 0.4 % 0.0-1.0 [facility]) [place] % 6.6 % 0.0-5.0 [facility] Eos % 1.3 % 0.0-3.0 [facility] Neutrophils # 10.7 10 1.5-8.5 [facility] ([facility]) Immature Granulocyte % 0.4 % 0-3.0 [facility] ([facility]) Lymph # 1.2 10 1.5-5.0 [facility] Nucleated Red Blood Cell % 0.0 % 0-0 [facility] ([facility]) Baso # 0.1 10 0.0-0.2 [facility]) [place] # 0.9 10 0.0-0.8 [facility] Eos # 0.2 10 0.0-0.5 [facility] Procedure Vital Signs ID Date Data Source UNK Name Value Range Interpretation Code Description Data Source(s) Body mass index (BMI) [Ratio] 36.8 kg/m2 36.8 k g/m2 [facility] ([facility]) Body weight 176.00 [lb_av] 176.00 [lb_av] [facility] ([facility]) Body height 58 [in_i] 58 [in_i] [facility] ([facility]) 4'10" Heart rate 78 /min 78 /min [facility] ([facility]) Diastolic blood pressure 68 mm[Hg] 68 mm[Hg] [facility] ([facility]) Systolic blood pressure 124 mm[Hg] 124 mm[Hg] [facility] ([facility]) Body mass index (BMI) [Ratio] 39.7 kg/m2 39.7 k g/m2 [facility] ([facility]) Body weight 190.00 [lb_av] 190.00 [lb_av] [facility] Body height 58 [in_i] 58 [in_i] [facility] ([facility]) 4'10" Heart rate 82 /min 82 /min [facility] ([facility]) Diastolic blood pressure 70 mm[Hg] 70 mm[Hg] [facility] ([facility]) Systolic blood pressure 120 mm[Hg] 120 mm[Hg] [facility] ([facility]) Body mass index (BMI) [Ratio] 39.1 kg/m2 39.1 k g/m2 [facility] ([facility]) Oxygen saturation in Arterial blood by Pulse oximetry 96 % 96 % [facility] ([facility]) With O2 Body weight 187.00 [lb_av] 187.00 [lb_av] [facility] ([facility]) Body height 58 [in_i] 58 [in_i] [facility] ([facility]) 4'10" Heart rate 89 /min 89 /min [facility] ([facility]) Diastolic blood pressure 70 mm[Hg] 70 mm[Hg] [facility] ([facility]) Systolic blood pressure 130 mm[Hg] 130 mm[Hg] [facility] ([facility])
[2020-11-11 06:09] LABS: BASO % 0.1 % (0.0-1.0); EOS # 0.1 10^3/uL (0.0-0.5); EOS % 0.7 % (0.0-3.0); HEMATOCRIT 43.4 % (36.0-47.0); HEMOGLOBIN 13.6 g/dl (12.0-15.5); LYMPH # 1.1 10^3/uL (1.5-5.0); LYMPH % 6.7 % (24.0-44.0); MEAN CORPUSCULAR HEMOGLOBIN 30.3 pg (27.0-33.0); MEAN CORPUSCULAR HGB CONC 31.3 g/dl (32.0-36.5); MEAN CORPUSCULAR VOLUME 96.7 fl (80.0-96.0); NEUTROPHILS % 85.9 % (36.0-66.0); PLATELET COUNT, AUTOMATED 120 10^3/uL (150-450); RED BLOOD COUNT 4.49 10^6/uL (4.00-5.40); WHITE BLOOD COUNT 16.3 10^3/uL (4.0-10.0)
[2020-11-11] MEDS ORDERED: MORPHINE 2 MG/ML 1ML VIAL (J2270) IV ONE (06:15)
--- NOTE | 2020-11-11 06:17 | REPVR ---
PROCEDURE INFORMATION: Exam: XR Chest, 1 View Exam date and time: 11/11/20 (5:53am) Age: 75 years old Clinical indication: Chest pain TECHNIQUE: Imaging protocol: Portable CXR Views: 1 view COMPARISON: Chest films of 10/20/20 FINDINGS: Comparison is made with a portable CXR done on 10/20/20. Stable cardiomegaly. No focal infiltrates. No definite pleural effusions. Uncoiled thoracic aorta. Faint aortic knob calcifications again seen. Degenerative changes at the shoulder joints. IMPRESSION: No acute pathology. Stable cardiomegaly. Electronically signed by: Bridgette Hammer On 11/11/2020 06:17:04 AM
[2020-11-11 06:33] LABS: INR 1.37; PROTHROMBIN TIME 17.2 SECONDS (12.5-14.3)
[2020-11-11 06:37] LABS: ALBUMIN 3.2 GM/DL (3.2-5.2); ALT/SGPT 13 U/L (12-78); BILIRUBIN,DIRECT 0.6 MG/DL (0.0-0.2); BLOOD UREA NITROGEN 27 MG/DL (7-18); CALCIUM LEVEL 8.8 MG/DL (8.8-10.2); CARBON DIOXIDE LEVEL 36 MEQ/L (21-32); CHLORIDE LEVEL 96 MEQ/L (98-107); CK-MB VALUE MASS 1.1 NG/ML (<3.6); CPK CREATINE PHOSPHOKINASE 45 U/L (26-192); CREATININE FOR GFR 1.01 MG/DL (0.55-1.30); GLOMERULAR FILTRATION RATE 56.6 (>39); GLUCOSE, FASTING 130 MG/DL (70-100); MB/CK RELATIVE INDEX 2.44 (< OR =4); NT-PRO BNP 1148 PG/ML (<450); POTASSIUM SERUM 3.4 MEQ/L (3.5-5.1); SODIUM LEVEL 140 MEQ/L (136-145); TOTAL PROTEIN 6.1 GM/DL (6.4-8.2); TROPONIN I < 0.02 NG/ML (< 0.10)
[2020-11-11] MEDS ORDERED: ISOVUE-370 76% 100ML VIAL As Ordered ONE (06:40)
[2020-11-11] MEDS ORDERED: NITROGLYCERIN 2% OINT 1 GM *U/D* PKT TOP ONE (06:45)
[2020-11-11] MEDS ORDERED: ASPIRIN 81 MG CHEW TABLET PO ONE (06:45)
--- OUTSIDE RECORDS SUMMARY | 2020-11-11 06:46 | CCD ---
Author Author [facility] Organization [facility] Address Unknown Phone Unavailable Care Team Providers Care Retail Experience Specialist Name Role Phone Delroy, M Della RPA [...] Unavailable Rudi Beltran MD Unavailable Unavailable Rudi Bletran MD Unavailable Unavailable Rudi Beltran MD Unavailable [...] by Article 27-F of the [facility] Public Health law. If you continue you may have access to information: Regarding HIV / AIDS; Provided by facilities licensed or operated by the [facility] Office of Mental Health; or Provided by the [facility] Office for People With Developmental Disabilities. If such information is present, then the following [facility] mandated warning applies: This information has [...] law may result in a fine or penitentiary sentence or both. A general authorization for the release of medical or other information is NOT sufficient authorization for further disc losure. Family History Family Member Name Family Member Gender Family Member Status Date o f Status Description Data Source(s) Unknown Unknown Problem [facility] (Elian luna [employer]EL[employer]) Unknown Female Problem [facility] ([facility]) Unknown Male Problem [facility] Unknown Female Problem [facility] ([facility]) Encounters Encounter Providers Location Date Indications Data Source(s ) Outpatient Attender: DELFIN Cary 1 03:20:00 PM EDT [facility] ([facility] ) Outpatient Attender: DELFIN Cary 0 06/08/2020 10:40:00 AM EDT [facility] ([facility] ) Outpatient Attender: Della Potts [facility] 02/25/2020 07:37:44 PM EDT [facility] Outpatient Attender: DELFIN Cary 0 02/24/2020 02:40:00 PM EDT [facility] ([facility] ) Outpatient Attender: Shanta Cary 11:45:00 AM EDT [facility] ([facility] ) Medications Medication Brand Name Start [...] 10/05/2020 12:00:00 AM EST ORAL active [facility] ([facility]) 10 mEq 10/05/2020 12:00:00 AM EST [...] DAILY DOSE = THREE TABLETS SOLD: 10/05/2020 [facility] 5 mg 08/27/2020 12:00:00 AM [...] 12:00:00 AM EST ORAL compl eted MED[facility] ([facility]) 60 ACTUAT Albuterol 0.09 MG/ACTUAT Metered Dose Inhaler Albu terol Sulfate HFA 07/24/2020 12:00:00 AM EST RESPIRATORY active [facility] ([facility]) 5 mg 07/23/2020 12:00:00 AM EST [...] 07/17/2020 12:00:00 AM EDT ORAL completed [facility] ([facility]) Potassium Chloride 20 MEQ Extended Release Oral Tablet Potassium Chloride [facility] 06/23/2020 12:00:00 AM EDT ORAL completed [facility] ([facility]) 20 mg 06/19/2020 12:00:00 AM EDT [...] 06/12/2020 12:00:00 AM EDT ORAL completed [facility] ([facility]) tiotropium 0.018 MG/ACTUAT Inhalant Powder [Spiriva] Spiriva Handihaler 06/08/2020 12:00:00 AM EDT active [facility] ([facility]) Furosemide 20 MG Oral Tablet Furosemide 06/08/2020 12:00:00 AM EDT ORAL active [facility] ([facility]) 20 mg 06/08/2020 12:00:00 AM [...] to zhang Policy Zhang Plan Information [facility] [id number] SP [id number] MEDICARE [id number] SP [id number] [id number] UMR O [id number] S [id number] MEDICARE [id number] S [id number] P53 [place] S [id number] S [id number] Medicare P [id number] S [id number] A [place]r (Old) Medigap Part B [id number] Self [id number] Medicare Natl Govt Servic Medicare Primary [id number] Self [id number] Umr (New [place]) Medigap Part B [id number] Self [id number] [place] Primary [id number] Self [id number] Umr Medigap Part B [id number] Self [id number] [facility] [id number] SP [id number] [place] Primary [id number] Self [id number] [place] (Old) Medigap Part B [id number] Self [id number] Medicare [place] Govt Servic Medicare Primary [id number] Self [id number] [place] (Old) Medigap Part B [id number] Self [id number] Medicare [place] Govt Serv[employer] Medicare Primary [id number] Self [id number] [place] (Old) Medigap Part B [id number] Self [id number] Medicare [place] Govt Serv[employer] Medicare Primary [id number] Self [id number] POM[facility] [id number] SP [id number] MEDICARE [id number] SP [id number] A [place] (Old) Medigap Part B [id number] Self [id number] Medicare [place] Govt Serv[employer] Medicare Primary [id number] Self [id number] [place] Ppo Medigap Part B [id number] Self [id number] Medicare [place] [employer] Medicare Primary [id number] Self [id number] [place] Ppo Medigap Part B [id number] Self [id number] Medicare [place] Govt Servic Medicare Primary [id number] Self [id number] [place] Ppo Medigap Part B [id number] Self [id number] Medicare [place] [employer] Medicare Primary [id number] Self [id number] [place] Ppo Medigap Part B [id number] Self [id number] Medicare [place] [employer] Medicare Primary [id number] Self [id number] [place] Ppo Medigap Part B [id number] Self [id number] Medicare [place] [employer] Medicare Primary [id number] Self [id number] [place] Ppo Medigap Part B [id number] Self [id number] Medicare [place] Govt Servic Medicare Primary [id number] Self [id number] [place] PPO O [id number] S [id number] MEDICARE C [id number] S [id number] A [facility] C [id number] S [id number] [place] Ppo Medigap Part B [id number] Self [id number] Medicare [place] Govt Serv[employer] Medicare Primary [id number] Self [id number] [place] (pr) Medigap Part B Self Medicare [facility] Medicare Primary Self [place] Ppo Medigap Part B 335 Self 335 Medicare [place] [employer] Serv[employer] Medicare Primary Self [place] Medigap Part B 335 Self 335 [place] Medicare Primary Self POMCO [id number] SP [id number] POMCO [id number] SP [id number] [employer] PPO S [id number] S [id number] P[employer] [id number] SP [id number] A [id number] Results ID Date Data Source [id number] 11/04/2020 01:31:00 PM EST [facility] ([facility]) Name Value Range Interpretation Code Description Data Meseret e(s) Supporting Document(s) Glucose [Mass/volume] in Serum or Plasma 145 mg/dL 74-99 [facility] ([facility]) 100-125 mg/dL PRE-DIABETES/FASTING >126 mg/dL DIABETES/FASTING Creatinine 1.0 mg/dL 0.6-1.3 [facility] ([facility]) Urea nitrogen [Mass/volume] in Serum or Plasma 31 mg/dL 7-18 [facility] ([facility]) Sodium [Moles/volume] in Serum or Plasma 145 meq/L 136-145 [facility] ([facility]) Potassium [Moles/volume] in Serum or Plasma 4.3 meq/L 3.5-5.1 [facility] ([facility]) Chloride [Moles/volume] in Serum or Plasma 100 meq/L 98-107 [facility] Carbon dioxide, total [Moles/volume] in Serum or Plasma 38 meq/L 21 -32 [facility] Glomerular filtration rate/1.73 sq M pre dicted among non-blacks [Volume Rate/Area] in Serum or Plasma by Creatinine-based formula (MDRD) 54 mL/min [facility] Glomerular filtration rate/1.73 sq M pre dicted among blacks [Volume Rate/Area] in Serum or Plasma by Creatinine-based formula (MDRD) Laboratory test result [facility] <content>CHRONIC KIDNEY DISEASE STAGING PER NKF</content>
<content></content>
<content>STAGE I & II GFR >= 60 NORMAL TO MILDLY DECREASED</content>
<content>STAGE III GFR 30-59 MODERATELY DECREASED</content>
<content>STAGE IV GFR 15-29 SEVERELY DECREASED</content>
<content>STAGE V GFR <15 VERY LITTLE GFR LEFT</content>
<content>ESRD GFR <15 ON LEPIDOPTERIST</content>
<content></content> Calcium [Mass/volume] in Serum or Plasma 9.4 mg/dL 8.5-10.1 [facility] ([facility]) ID Date Data Source [id number] 11/04/2020 01:31:00 PM EST [facility] ([facility]) Name Value Range Interpretation Code Description Data Meseret rce(s) Supporting Document(s) Leukocytes [#/volume] in Blood by Automated count 15.3 x10*3/UL 4.1-1 0.9 [facility] ([facility]) NOTE: RESULT VERIFIED. Erythrocytes [#/volume] in Blood by Automated count 4.72 x10*6/UL 4.2 0-6.30 [facility] ([facility]) Hemoglobin [Mass/volume] in Blood 14.5 g/dL 12.0-18.0 [facility] Hematocrit [Volume Fraction] of Blood by Automated count 44.3 % 3 7.0-51.0 [facility] MCV 93.8 fL 80.0-97.0 [facility] ([facility]) Erythrocyte distribution width [Ratio] by Automated count 13.5 % 11.6-13.7 [facility] ([facility]) MCH 30.8 pg 26.0-32.0 [facility] MCHC 32.8 g/dL 31.0-38.0 [facility] ([facility]) Platelets [#/volume] in Blood by Automated count 147 x10*3/UL 140-440 [facility] ([facility]) MPV 9.2 FL 7.8-11.0 [facility] Lymph % 8.3 % 10.0-58.5 [facility] Neut % 89.4 % 37.0-92.0 [facility] Lymph # 1.2 x10*3/UL 0.6-4.1 [facility] ([facility]) Mid % 2.3 % 1.7-9.3 [facility] Mid # 0.4 x10*3/UL 0.1-0.6 [facility] ([facility]) Neut # 13.7 x10*3/UL 2.0-7.8 [facility] ([facility]) ID Date Data Source [id number] 10/28/2020 01:29:00 PM EST [facility] Name Value Range Interpretation Code Description Data Meseret rce(s) Supporting Document(s) SARS-CoV-2 (COVID 19) NEGATIVE - SARS-CoV-2 (COVID19) [facility] This lab was ordered by [facility] a nd reported by [facility]. ID Date Data Source [id number] 10/18/2020 01:00:00 AM EST [facility] Name Value Range Interpretation Code Description Data Meseret rce(s) Supporting Document(s) SARS coronavirus 2 RNA [Presence] in Res piratory specimen by NAINA with probe detection NEGATIVE [facility] This lab was ordered by [facility] a nd reported by [facility]. ID Date Data Source [id number] 07/19/2020 10:17:00 AM EST [facility] ([facility]) Name Value Range Interpretation Code Description Data Meseret rce(s) Supporting Document(s) Bedside Glucose 105 mg/dL 83-110 [facility] ([facility]) ID Date Data Source [id number] 07/19/2020 09:49:00 AM EST [facility] ([facility]) Name Value Range Interpretation Code Description Data Meseret rce(s) Supporting Document(s) Magnesium [Moles/volume] in Serum or Plasma 1.6 mg/dL 1.8-2.4 [facility] ([facility]) Thyrotropin [Units/volume] in Serum or Plasma by Detec tion limit <= 0.05 mIU/L 1.440 uIU/ML 0.358-3.740 [facility] ([facility] ) Thyroxine (T4) free [Mass/volume] in Serum or Plasma 1.05 ng/dL 0.76- 1.46 [facility] ([facility]) ID Date Data Source [id number] 07/19/2020 09:49:00 AM EST [facility] ([facility]) Name Value Range Interpretation Code Description Data Meseret rce(s) Supporting Document(s) Blood Urea Nitrogen 21 mg/dL 7-18 [facility] ([facility]) Glucose, Fasting 131 mg/dL 70-100 [facility] ([facility]) Glomerular Filtration Rate 55.9 [facility] ([facility]) <content>Units are mL/min/1.73 m2</content>
<content></content>
<content>Chronic Kidney Disease Staging per NKF:</content>
<content></content>
<content>Stage I & II GFR >=60 Normal to Mildly Decreased</content>
<content>Stage III GFR 30- 59 Moderately Decreased</content>
<content>Stage IV GFR 15-29 Severely Decreased</content>
<content>Stage V GFR <15 Very Little GFR Left</content>
<content>ESRD GFR <15 on LEPIDOPTERIST</content>
<content></content> Sodium Level 141 meq/L 136-145 [facility] ([facility]) Creatinine For GFR 1.02 mg/dL 0.55-1.30 [facility] ([facility]) Potassium Serum 3.6 meq/L 3.5-5.1 [facility] ([facility]) Chloride Level 101 meq/L 98-107 [facility] ([facility]) Carbon Dioxide Level 38 meq/L 21-32 [facility] ([facility]) Anion Gap 2 meq/L 8-16 [facility] Calcium Level 8.9 mg/dL 8.8-10.2 [facility] ([facility]) ID Date Data Source [id number] 07/19/2020 09:49:00 AM EST [facility] ([facility]) Name Value Range Interpretation Code Description Data Meseret rce(s) Supporting Document(s) CK-MB Value Mass Laboratory test result [facility] ([facility]) CPK Creatine Phosphokinase 38 U/L 26-192 [facility] ([facility]) MB/CK Relative Index 2.63 [facility] ([facility]) <content>DIAGNOSIS CRITERIA</content>
<content>MMB ng/ml Relative Index (RI)</content>
<content>NON-AMI < or = 5 N/A</content>
<content>MEYER ZONE > 5 < or = 4</content>
<content>AMI > 5 > 4</content>
<content></content> Troponin I Laboratory test result [facility] ([facility]) <content>Troponin I Reference Interval f or Siemens [place] LOCI:</content>
<content></content>
<content>99th Percentile= 0.00-0.045 ng/ml</content>
<content></content>
<content>Risk Stratification:</content>
<content><= 0.10 ng/ml Decreased Risk for Adverse Clinical</content>
<content>Events.</content>
<content>0.10-1.50 ng/ml Increased Risk for Adverse Clinical</content>
<content>Events. Evaluation of additional</content>
<content>criterion and/or repeat testing in 2-6</content>
<content>hours is suggested to rule out myocardial</content>
<content>damage.</content>
<content>>= 1.50 ng/ml Indicative of Myocardial Injury.</content>
<content></content> ID Date Data Source [id number] 07/19/2020 09:49:00 AM EST [facility] ([facility]) Name Value Range Interpretation Code Description Data Meseret rce(s) Supporting Document(s) aPTT in Blood by Coagulation assay 43.2 s 24.2-38.5 [facility] ID Date Data Source [id number] 07/19/2020 09:49:00 AM EST [facility] ([facility]) Name Value Range Interpretation Code Description Data Meseret rce(s) Supporting Document(s) Prothrombin Time 16.7 s 12.5-14.3 [facility] ([facility]) Inr 1.32 [facility] ([facility]) THERAPUTIC HUMAN INR VALUES INDICATIONS NORMAL RANGES PROPHYLAXIS/TREATMENT OF: VENOUS THROMBOSIS 2.0-3.0 PULMONARY EMBOLISM 2.0-3.0 PREVENTION OF SYSTEMIC EMBOLISM FROM: TISSUE HEART VALVES 2.0-3.0 ACUTE MYOCARDIAL INFARCTION 2.0-3.0 VALVULAR HEART DISEASE 2.0-3.0 ATRIAL FIBRILLATION 2.0-3.0 MECHANICAL VALVES(HIGH RISK) 2.5-3.5 RECURRENT MYOCARDIAL INFARCTION 2.5-3.5 ID Date Data Source [id number] 07/19/2020 09:49:00 AM EST [facility] ([facility]) Name Value Range Interpretation Code Description Data Meseret rce(s) Supporting Document(s) White Blood Count 10.5 10 4.0-10.0 [facility] ([facility]) Hematocrit 43.2 % 36.0-47.0 [facility] Hemoglobin 13.3 g/dL 12.0-15.5 [facility] ([facility]) Red Blood Count 4.36 10 4.00-5.40 [facility] ([facility]) Mean Corpuscular Volume 99.1 fl 80.0-96.0 [facility] ([facility]) Mean Corpuscular HGB Conc 30.8 g/dL 32.0-36.5 MEDE NT ([facility]) Mean Corpuscular Hemoglobin 30.5 pg 27.0-33.0 [facility] ([facility]) Red Cell Distribution Width 13.2 % 11.5-14.5 [place] [facility] ([facility]) Platelet Count, Automated 207 10 150-450 MED[facility] NT ([facility]) Neutrophils % 74.5 % 36.0-66.0 [facility] ([facility]) [place] % 5.8 % 0.0-5.0 [facility] Lymph % 15.8 % 24.0-44.0 [facility] Baso % 0.5 % 0.0-1.0 [facility] Immature Granulocyte % 0.4 % 0-3.0 [facility] ([facility]) Eos % 3.0 % 0.0-3.0 [facility]) Nucleated Red Blood Cell % 0.0 % 0-0 [facility] ([facility]) Lymph # 1.7 10 1.5-5.0 [facility] Neutrophils # 7.8 10 1.5-8.5 [facility] ([facility]) [place] # 0.6 10 0.0-0.8 [facility] Baso # 0.1 10 0.0-0.2 [facility] Eos # 0.3 10 0.0-0.5 [facility] ID Date Data Source [id number] 06/22/2020 03:47:00 PM EDT [facility] ([facility]) Name Value Range Interpretation Code Description Data Meseret rce(s) Supporting Document(s) Urea nitrogen [Mass/volume] in Serum or Plasma 26 mg/dL 7-18 [facility] ([facility]) Glucose [Mass/volume] in Serum or Plasma 131 mg/dL 74-99 [facility] ([facility]) 100-125 mg/dL PRE-DIABETES/FASTING >126 mg/dL DIABETES/FASTING Sodium [Moles/volume] in Serum or Plasma 145 meq/L 136-145 [facility] ([facility]) Potassium [Moles/volume] in Serum or Plasma 3.1 meq/L 3.5-5.1 [facility] ([facility]) Creatinine 1.1 mg/dL 0.6-1.3 [facility] ([facility]) Carbon dioxide, total [Moles/volume] in Serum or Plasma 36 meq/L 21 -32 [facility] ([facility]) Chloride [Moles/volume] in Serum or Plasma 102 meq/L 98-107 [facility] ([facility]) Calcium [Mass/volume] in Serum or Plasma 8.8 mg/dL 8.5-10.1 [facility] ([facility]) Glomerular filtration rate/1.73 sq M pre dicted among blacks [Volume Rate/Area] in Serum or Plasma by Creatinine-based formula (MDRD) 58 mL/min [facility] ([facility]) <content>CHRONIC KIDNEY DISEASE STAGING PER NKF</content>
<content></content>
<content>STAGE I & II GFR >= 60 NORMAL TO MILDLY DECREASED</content>
<content>STAGE III GFR 30-59 MODERATELY DECREASED</content>
<content>STAGE IV GFR 15-29 SEVERELY DECREASED</content>
<content>STAGE V GFR <15 VERY LITTLE GFR LEFT</content>
<content>ESRD GFR <15 ON LEPIDOPTERIST</content>
<content></content> Glomerular filtration rate/1.73 sq M pre dicted among non-blacks [Volume Rate/Area] in Serum or Plasma by Creatinine-based formula (MDRD) 48 mL/min [facility]) ID Date Data Source [id number] 06/08/2020 11:11:00 AM EDT [facility] ([facility]) Name Value Range Interpretation Code Description Data Meseret rce(s) Supporting Document(s) Natriuretic peptide B [Mass/volume] in Serum or Plasma 189.0 pg/mL 0.0-100.0 [facility]) ID Date Data Source [id number] 06/08/2020 11:11:00 AM EDT [facility] ([facility]) Name Value Range Interpretation Code Description Data Meseret rce(s) Supporting Document(s) Glucose [Mass/volume] in Serum or Plasma 110 mg/dL 74-99 [facility] ([facility]) 100-125 mg/dL PRE-DIABETES/FASTING >126 mg/dL DIABETES/FASTING Urea nitrogen [Mass/volume] in Serum or Plasma 18 mg/dL 7-18 [facility] ([facility]) Sodium [Moles/volume] in Serum or Plasma 141 meq/L 136-145 [facility] ([facility]) Potassium [Moles/volume] in Serum or Plasma 3.6 meq/L 3.5-5.1 [facility] ([facility]) Creatinine 0.9 mg/dL 0.6-1.3 [facility] ([facility]) Carbon dioxide, total [Moles/volume] in Serum or Plasma 35 meq/L 21 -32 [facility] ([facility]) Chloride [Moles/volume] in Serum or Plasma 101 meq/L 98-107 [facility] ([facility]) Calcium [Mass/volume] in Serum or Plasma 9.0 mg/dL 8.5-10.1 [facility] ([facility]) Glomerular filtration rate/1.73 sq M pre dicted among non-blacks [Volume Rate/Area] in Serum or Plasma by Creatinine-based formula (MDRD) Laboratory test result [facility] Glomerular filtration rate/1.73 sq M pre dicted among blacks [Volume Rate/Area] in Serum or Plasma by Creatinine-based formula (MDRD) Laboratory test result [facility] ([facility]) <content>CHRONIC KIDNEY DISEASE STAGING PER NKF</content>
<content></content>
<content>STAGE I & II GFR >= 60 NORMAL TO MILDLY DECREASED</content>
<content>STAGE III GFR 30-59 MODERATELY DECREASED</content>
<content>STAGE IV GFR 15-29 SEVERELY DECREASED</content>
<content>STAGE V GFR <15 VERY LITTLE GFR LEFT</content>
<content>ESRD GFR <15 ON LEPIDOPTERIST</content>
<content></content> ID Date Data Source [id number] 05/27/2020 07:44:00 AM EDT [facility] ([facility]) Name Value Range Interpretation Code Description Data Meseret rce(s) Supporting Document(s) ABG Partial Pressure Co2 56.9 mmHg 35.0-45.0 MEDEN T ([facility]) ABG pH (Arterial) 7.402 units 7.350-7.450 [facility] ( [facility]) ABG Total Co2 36.4 meq/L 23.0-31.0 [facility] ([facility]) ABG Partial Pressure O2 131.8 mmHg 75.0-100.0 MEDE NT ([facility]) ABG Hco3 34.6 meq/L 22.0-26.0 [facility] ABG O2 Saturation 98.9 % 95.0-99.0 [facility] ([facility]) ABG Standard Hco3 31.8 meq/L 22.0-26.0 [facility]) ABG Base Excess 7.9 [facility] ([facility]) ID Date Data Source [id number] 05/27/2020 07:42:00 AM EDT [facility] ([facility]) Name Value Range Interpretation Code Description Data Meseret rce(s) Supporting Document(s) Respiratory Panel Laboratory test result [facility] This respiratory PCR panel detects Influ amarilis [...] - SARS-CoV-2 (COVID19) ID Date Data Source [id number] 05/27/2020 07:42:00 AM EDT [facility] ([facility]) Name Value Range Interpretation Code Description Data Meseret rce(s) Supporting Document(s) Natriuretic peptide.B prohormone N-Terminal [Mass/volu me] in Serum or Plasma 2410 pg/mL [facility] ([facility] ) ID Date Data Source [id number] 05/27/2020 07:42:00 AM ED [facility] ([facility]) Name Value Range Interpretation Code Description Data Meseret rce(s) Supporting Document(s) Blood Urea Nitrogen 15 mg/dL 7-18 [facility] ([facility]) Glucose, Fasting 118 mg/dL 70-100 [facility] ([facility]) Glomerular Filtration Rate Laboratory test result [facility] <content>Units are mL/min/1.73 m2</content>
<content></content>
<content>Chronic Kidney Disease Staging per NKF:</content>
<content></content>
<content>Stage I & II GFR >=60 Normal to Mildly Decreased</content>
<content>Stage III GFR 30- 59 Moderately Decreased</content>
<content>Stage IV GFR 15-29 Severely Decreased</content>
<content>Stage V GFR <15 Very Little GFR Left</content>
<content>ESRD GFR <15 on LEPIDOPTERIST</content>
<content></content> Sodium Level 142 meq/L 136-145 [facility] ([facility]) Creatinine For GFR 0.69 mg/dL 0.55-1.30 [facility] ([facility]) Potassium Serum 3.8 meq/L 3.5-5.1 [facility] ([facility]) Carbon Dioxide Level 42 meq/L 21-32 [facility] ([facility] [facility]) Chloride Level 98 meq/L 98-107 [facility] ([facility]) Calcium Level 9.0 mg/dL 8.8-10.2 [facility] ([facility]) Anion Gap 2 meq/L 8-16 [facility] ([facility] ID Date Data Source [id number] 05/27/2020 07:42:00 AM EDT [facility] ([facility]) Name Value Range Interpretation Code Description Data Meseret rce(s) Supporting Document(s) Alt/SGPT 11 U/L 12-78 [facility] ([place]) Ast/Sgot 10 U/L 7-37 [facility] ([facility]) Alkaline Phosphatase 79 U/L 45-117 [facility] ([facility]) Bilirubin,Total 1.1 mg/dL 0.2-1.0 [facility] ([facility]) Total Protein 6.5 GM/DL 6.4-8.2 [facility] ([facility]) Bilirubin,Direct 0.4 mg/dL 0.0-0.2 [facility] ([facility]) Albumin 3.3 GM/DL 3.2-5.2 [facility] ([facility]) Albumin/Globulin Ratio 1.0 1.2-2.2 [facility] ([facility]) ID Date Data Source [id number] 05/27/2020 07:42:00 AM EDT [facility] ([facility]) Name Value Range Interpretation Code Description Data Meseret rce(s) Supporting Document(s) CPK Creatine Phosphokinase 32 U/L 26-192 [facility] ([facility]) CK-MB Value Mass 1.1 ng/mL [facility]) Troponin I Laboratory test result [facility] ([facility] <content>Troponin I Reference Interval f or Siemens [place] LOCI:</content>
<content></content>
<content>99th Percentile= 0.00-0.045 ng/ml</content>
<content></content>
<content>Risk Stratification:</content>
<content><= 0.10 ng/ml Decreased Risk for Adverse Clinical</content>
<content>Events.</content>
<content>0.10-1.50 ng/ml Increased Risk for Adverse Clinical</content>
<content>Events. Evaluation of additional</content>
<content>criterion and/or repeat testing in 2-6</content>
<content>hours is suggested to rule out myocardial</content>
<content>damage.</content>
<content>>= 1.50 ng/ml Indicative of Myocardial Injury.</content>
<content></content> MB/CK Relative Index 3.44 [facility] <content>DIAGNOSIS CRITERIA</content>
<content>MMB ng/ml Relative Index (RI)</content>
<content>NON-AMI < or = 5 N/A</content>
<content>MEYER ZONE > 5 < or = 4</content>
<content>AMI > 5 > 4</content>
<content></content> ID Date Data Source [id number] 05/27/2020 07:42:00 AM EDT [facility] ([facility]) Name Value Range Interpretation Code Description Data Meseret rce(s) Supporting Document(s) Prothrombin Time 16.2 s 11.8-14.0 [facility] ([facility]) Inr 1.28 [facility] ([facility]) THERAPUTIC HUMAN INR VALUES INDICATIONS NORMAL RANGES PROPHYLAXIS/TREATMENT OF: VENOUS THROMBOSIS 2.0-3.0 PULMONARY EMBOLISM 2.0-3.0 PREVENTION OF SYSTEMIC EMBOLISM FROM: TISSUE HEART VALVES 2.0-3.0 ACUTE MYOCARDIAL INFARCTION 2.0-3.0 VALVULAR HEART DISEASE 2.0-3.0 ATRIAL FIBRILLATION 2.0-3.0 MECHANICAL VALVES(HIGH RISK) 2.5-3.5 RECURRENT MYOCARDIAL INFARCTION 2.5-3.5 ID Date Data Source [id number] 05/27/2020 07:42:00 AM EDT [facility] ([facility]) Name Value Range Interpretation Code Description Data Meseret rce(s) Supporting Document(s) Hemoglobin 13.5 g/dL 12.0-15.5 [facility] ([facility]) White Blood Count 11.7 10 4.0-10.0 [facility] ([facility]) Red Blood Count 4.31 10 4.00-5.40 [facility] ([facility]) Mean Corpuscular Volume 101.4 fl 80.0-96.0 [facility] ([facility]) Mean Corpuscular Hemoglobin 31.3 pg 27.0-33.0 [facility] ([facility]) Hematocrit 43.7 % 36.0-47.0 [facility] ([facility]) Platelet Count, Automated 181 10 150-450 MED[facility] NT ([facility]) Red Cell Distribution Width 13.4 % 11.5-14.5 [facility] ([facility]) Mean Corpuscular HGB Conc 30.9 g/dL 32.0-36.5 MED[facility] NT ([facility]) Neutrophils % 83.4 % 36.0-66.0 [facility] ([facility]) Lymph % 9.5 % 24.0-44.0 [facility] ([facility]) [place] % 4.9 % 0.0-5.0 [facility] ([facility]) Nucleated Red Blood Cell % 0.0 % 0-0 [facility] ([facility]) Eos % 1.3 % 0.0-3.0 [facility] [facility]) Immature Granulocyte % 0.5 % 0-3.0 [facility] ([facility]) Baso % 0.4 % 0.0-1.0 [facility] [facility]) Lymph # 1.1 10 1.5-5.0 [facility] [facility]) Neutrophils # 9.8 10 1.5-8.5 [facility] ([facility]) [place] # 0.6 10 0.0-0.8 [facility] ([facility] [facility]) Baso # 0.1 10 0.0-0.2 [facility] [facility]) Eos # 0.2 10 0.0-0.5 [facility] [facility] ID Date Data Source [id number] 02/23/2020 04:13:00 PM EDT [facility] ([facility]) Name Value Range Interpretation Code Description Data Meseret rce(s) Supporting Document(s) C reactive protein [Mass/volume] in Serum or Plasma by High sensitivity method 4.54 mg/dL 0.00-0.30 [facility] ([facility] ) Urate [Mass/volume] in Serum or Plasma 7.8 mg/dL 2.6-6.0 [facility] ([facility]) ID Date Data Source [id number] 02/23/2020 04:13:00 PM EDT [facility] ([facility]) Name Value Range Interpretation Code Description Data Meseret rce(s) Supporting Document(s) Creatinine For GFR 0.62 mg/dL 0.55-1.30 [facility] ([facility]) Glucose, Fasting 103 mg/dL 70-100 [facility] ([facility]) Blood Urea Nitrogen 17 mg/dL 7-18 [facility] ([facility]) Glomerular Filtration Rate Laboratory test result [facility] ([facility]) <content>Units are mL/min/1.73 m2</content>
<content></content>
<content>Chronic Kidney Disease Staging per NKF:</content>
<content></content>
<content>Stage I & II GFR >=60 Normal to Mildly Decreased</content>
<content>Stage III GFR 30- 59 Moderately Decreased</content>
<content>Stage IV GFR 15-29 Severely Decreased</content>
<content>Stage V GFR <15 Very Little GFR Left</content>
<content>ESRD GFR <15 on LEPIDOPTERIST</content>
<content></content> Chloride Level 101 meq/L 98-107 [facility] ([facility]) Sodium Level 144 meq/L 136-145 [facility] ([facility]) Potassium Serum 3.8 meq/L 3.5-5.1 [facility] ([facility]) Anion Gap 4 meq/L 8-16 [facility] [facility]) Calcium Level 8.2 mg/dL 8.8-10.2 [facility] ([facility]) Carbon Dioxide Level 39 meq/L 21-32 [facility] ([facility]) ID Date Data Source [id number] 02/23/2020 04:13:00 PM EDT [facility] ([facility]) Name Value Range Interpretation Code Description Data Meseret rce(s) Supporting Document(s) Erythrocyte sedimentation rate by Westergren method 25 mm/hr 0-30 [facility] ([facility]) ID Date Data Source [id number] 02/23/2020 04:13:00 PM EDT [facility] ([facility]) Name Value Range Interpretation Code Description Data Meseret rce(s) Supporting Document(s) White Blood Count 13.0 10 4.0-10.0 [facility] ([facility]) Hemoglobin 13.6 g/dL 12.0-15.5 [facility] [facility]) Red Blood Count 4.41 10 4.00-5.40 [facility] ([facility]) Hematocrit 44.2 % 36.0-47.0 [facility] [facility] Mean Corpuscular Hemoglobin 30.8 pg 27.0-33.0 ME DENT ([facility]) Red Cell Distribution Width 13.2 % 11.5-14.5 [facility] ([facility]) Mean Corpuscular Volume 100.2 fl 80.0-96.0 [facility] ([facility]) Mean Corpuscular HGB Conc 30.8 g/dL 32.0-36.5 [facility] NT ([facility]) Platelet Count, Automated 183 10 150-450 [facility] NT ([facility]) Neutrophils % 82.2 % 36.0-66.0 [facility] ([facility]) Lymph % 9.1 % 24.0-44.0 [facility] [facility]) Baso % 0.4 % 0.0-1.0 [facility] [facility]) [place] % 6.6 % 0.0-5.0 [facility] [facility] Eos % 1.3 % 0.0-3.0 [facility] Neutrophils # 10.7 10 1.5-8.5 [facility] ([facility]) Immature Granulocyte % 0.4 % 0-3.0 [facility] ([facility]) Lymph # 1.2 10 1.5-5.0 [facility] [facility] Nucleated Red Blood Cell % 0.0 % 0-0 [facility] ([facility]) Baso # 0.1 10 0.0-0.2 [facility] [facility]) [place] # 0.9 10 0.0-0.8 [facility] [facility] Eos # 0.2 10 0.0-0.5 [facility] [facility] Procedure Vital Signs ID Date Data Source UNK Name Value Range Interpretation Code Description Data Source(s) Body mass index (BMI) [Ratio] 36.8 kg/m2 36.8 k g/m2 [facility] ([facility]) Body weight 176.00 [lb_av] 176.00 [lb_av] [facility] T ([facility]) Body height 58 [in_i] 58 [in_i] [facility] ([facility]) 4'10" Heart rate 78 /min 78 /min [facility] ([facility]) Diastolic blood pressure 68 mm[Hg] 68 mm[Hg] [facility] ([facility]) Systolic blood pressure 124 mm[Hg] 124 mm[Hg] [facility] ([facility]) Body mass index (BMI) [Ratio] 39.7 kg/m2 39.7 k g/m2 [facility] ([facility]) Body weight 190.00 [lb_av] 190.00 [lb_av] [facility] Body height 58 [in_i] 58 [in_i] [facility] ([facility]) 4'10" Heart rate 82 /min 82 /min [facility] ([facility]) Diastolic blood pressure 70 mm[Hg] 70 mm[Hg] [facility] ([facility]) Systolic blood pressure 120 mm[Hg] 120 mm[Hg] [facility] ([facility]) Body mass index (BMI) [Ratio] 39.1 kg/m2 39.1 k g/m2 [facility] ([facility]) Oxygen saturation in Arterial blood by Pulse oximetry 96 % 96 % [facility] ([facility]) With O2 Body weight 187.00 [lb_av] 187.00 [lb_av] [facility] ([facility]) Body height 58 [in_i] 58 [in_i] [facility] ([facility]) 4'10" Heart rate 89 /min 89 /min [facility] ([facility]) Diastolic blood pressure 70 mm[Hg] 70 mm[Hg] [facility] ([facility]) Systolic blood pressure 130 mm[Hg] 130 mm[Hg] [facility] ([facility])
[2020-11-11 07:01] LABS: LIPASE 23 U/L (73-393)
--- NOTE | 2020-11-11 07:30 | REPVR ---
PROCEDURE INFORMATION: Exam: CT Angiography Chest With Contrast Exam date and time: 11/11/2020 6:15 AM Age: 75 years old Clinical indication: Chest pain; Type not specified; Additional info: R/O pe TECHNIQUE: Imaging protocol: Computed tomographic angiography of the chest with contrast. 3D rendering (Not supervised by radiologist): MIP and/or 3D reconstructed images were created by the technologist. Radiation optimization: All CT scans at this facility use at least one of these dose optimization techniques: automated exposure control; mA and/or kV adjustment per patient size (includes targeted exams where dose is matched to clinical indication); or iterative reconstruction. Contrast material: ISO; Contrast volume: 100 ml; Contrast route: INTRAVENOUS (IV); COMPARISON: CR PORTABLE CHEST X-RAY 11/11/2020 5:52 AM FINDINGS: Pulmonary arteries: No pulmonary embolus is identified. Aorta: The thoracic aorta is nonaneurysmal. Atherosclerotic vascular calcifications are noted. Lungs: The lungs demonstrate mild dependent atelectasis and scattered scarring. There is mild upper lobe predominant centrilobular emphysematous disease. A 7 mm nodule is present in the right upper lobe (image [id number]). Pleural spaces: Unremarkable. No pneumothorax. No pleural effusion. Heart: Coronary artery calcifications are noted. There is a trace pericardial effusion. The heart appears large. The RV/LV ratio is less than 1. Lymph nodes: Unremarkable. No enlarged lymph nodes. Bones/joints: Degenerative changes involve the spine and shoulders. Soft tissues: Unremarkable. IMPRESSION: 1. No pulmonary embolus identified. 2. Mild upper lobe predominant emphysematous disease. 3. 7 mm right upper lobe nodule. For patients at high risk (history of smoking or of other known risk factors), recommend CT Chest at 6-12 months, then CT Chest at 18-24 months. (Reference: Mehrdad) 4. Cardiomegaly with very small pericardial effusion. 5. Coronary artery calcifications. COMMENTS: Dedicated abdominal CT has been performed, and findings below the diaphragm will be reported separately. REFERENCES: Mehrdad Hernández et al. Guidelines for Management of Incidental Pulmonary Nodules Detected on CT Images: From the Fleischner Society 2017. Radiology. 2017;284(1):228-243. Electronically signed by: Delbert Robbins On 11/11/2020 07:30:32 AM
--- NOTE | 2020-11-11 07:40 | REPVR ---
PROCEDURE INFORMATION: Exam: CT Abdomen And Pelvis With Contrast Exam date and time: 11/11/2020 6:15 AM Age: 75 years old Clinical indication: Abdominal pain; Generalized; Additional info: R/O pe, diffuse abd pain TECHNIQUE: Imaging protocol: Computed tomography of the abdomen and pelvis with contrast. Radiation optimization: All CT scans at this facility use at least one of these dose optimization techniques: automated exposure control; mA and/or kV adjustment per patient size (includes targeted exams where dose is matched to clinical indication); or iterative reconstruction. Contrast material: ISO; Contrast volume: 100 ml; Contrast route: INTRAVENOUS (IV); COMPARISON: CT ABD PELVIS WITH CONTRAST 05/16/2016 12:50 PM FINDINGS: Liver: The liver again contains some coarse, chronic appearing calcifications in the right lobe. It is again fatty in density. Gallbladder and bile ducts: No gallstones are evident, but ultrasound would be more sensitive. There is again mild dilatation of the common bile duct at approximately 10 mm. Pancreas: The pancreas is increasingly atrophic. It is duct does not appear dilated. Spleen: Normal. No splenomegaly. Adrenal glands: There is again a large right adrenal myelolipoma measuring approximately 6.4 x 5.1 cm (previously 5.8 x 4.2 cm). The left adrenal gland appears unremarkable. Kidneys and ureters: The right kidney contains a stable 6 mm simple cyst. It appears otherwise unremarkable. The left kidney appears unremarkable. Stomach and bowel: The unopacified small bowel is not significantly distended to suggest obstruction. There is mild descending and sigmoid colonic diverticulosis without evidence for diverticulitis.The abdominal aorta is nonaneurysmal. Appendix: The appendix is not identified, but there are no inflammatory changes in its expected region. Intraperitoneal space: No free air or significant free fluid. Vasculature: Atherosclerotic vascular calcifications are again present. Lymph nodes: Unremarkable. No enlarged lymph nodes. Urinary bladder: Unremarkable as visualized. Reproductive: No gross adnexal abnormality is apparent, but ultrasound would be more appropriate in this regard. Bones/joints: Degenerative changes again involve the spine, sacroiliac joints, pubic symphysis and hips. A new subcortical lucency in the right pubic bone along the pubic symphysis is likely degenerative. Soft tissues: Unremarkable. IMPRESSION: 1. No acute abnormality identified. 2. Mild dilatation of the common bile duct at 10 mm, similar to 05/07 06/03, and of uncertain significance. Correlate as to any possible biliary obstruction and suggest dedicated evaluation. 3. Mild left-sided colonic diverticulosis without evidence for diverticulitis. 4. Enlarging right adrenal myelolipoma now measuring up to 6.4 cm (previously 5.8 cm). 5. Other nonurgent findings as described. COMMENTS: See separate chest CT report for findings above the diaphragm. Electronically signed by: Delbert Robbins On 11/11/2020 07:40:47 AM
--- NOTE | 2020-11-11 07:53 | ECGEPIP ---
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
--- NOTE | 2020-11-11 07:55 | ECGEPIP ---
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
[2020-11-11] MEDS: TIOTROPIUM INHALER/CAPSULE (SPIRIVA) INH SCH (08:00)
[2020-11-11] MEDS: METOPROLOL TART 25 MG TABLET PO SCH ×2 (09:00→21:00)
[2020-11-11] MEDS: APIXABAN 5 MG TAB (ELIQUIS) PO SCH ×3 (09:00→21:59)
[2020-11-11 09:32] LABS: ABG BASE EXCESS 7.8 (-2.0-2.0); ABG HCO3 34.8 MEQ/L (22.0-26.0); ABG O2 SATURATION 99.2 % (95.0-99.0); ABG PARTIAL PRESSURE CO2 58.6 mmHg (35.0-45.0); ABG PARTIAL PRESSURE O2 139.4 mmHg (75.0-100.0); ABG STANDARD HCO3 31.7 MEQ/L (22.0-26.0); ABG TOTAL CO2 36.6 MEQ/L (23.0-31.0); ABG pH (ARTERIAL) 7.391 UNITS (7.350-7.450)
--- NOTE | 2020-11-11 09:36 | REP ---
INDICATION: hyperbilirubinemia, diffuse abd pain, dilated CBD. COMPARISON: Comparison is made with today's CT study of the abdomen.. TECHNIQUE: Right upper quadrant sonography. FINDINGS: Scanning through the right upper quadrant of the abdomen demonstrates a dilated gallbladder measuring up to 11.7 cm greatest diameter. Its wall is not thickened and no pericholecystic fluid is seen. No stones are seen within the gallbladder. There is mild intrahepatic bile duct prominence and the common bile duct is mildly dilated measuring 1.1 cm in diameter. No focal liver lesion is seen. Liver is not enlarged. There is no evidence of ascites or right renal abnormality. The right kidney measures 9.5 x 4.7 x 4.0 cm. The pancreas is obscured by abdominal gas.. IMPRESSION: Dilated gallbladder and mildly dilated CBD, 1.1 cm. No etiology identified sonographically. Pancreas is obscured by abdominal gas. No evidence of cholelithiasis or sonographic evidence of choledocholithiasis.. <Electronically signed by Darion Rodarte > 11/11/20 [id number]
[2020-11-11 10:13] LABS: CK-MB VALUE MASS 1.1 NG/ML (<3.6); MB/CK RELATIVE INDEX 4.4 (< OR =4); TROPONIN I 0.02 NG/ML (< 0.10)
[2020-11-11] MEDS ORDERED: METOPROLOL TART 25 MG TABLET PO ONE (10:50)
[2020-11-11] MEDS ORDERED: FURO20TA2 PO (11:02)
[2020-11-11] MEDS ORDERED: POTA10TA17 PO (11:02)
[2020-11-11] MEDS ORDERED: SPIR1CAP INH (11:02)
[2020-11-11] MEDS ORDERED: ELIQ5TAB PO (11:02)
[2020-11-11] MEDS ORDERED: METO25TA4 PO (11:02)
[2020-11-11] MEDS ORDERED: HYDR-3490 PO (11:02)
[2020-11-11] MEDS ORDERED: KETOROLAC 30 MG/ML 1ML VIAL IV PRN (13:20)
--- OUTSIDE RECORDS SUMMARY | 2020-11-11 13:27 | CCD ---
Author Author [facility] Organization [facility] Address Unknown Phone Unavailable Care Team Providers Care Environmental Communications Specialist Name Role Phone Delroy, M Della [...] Unavailable Delroy, M Della RPA Unavailable Unavailable Dleroy, M Della RPA Unavailable Unavailable Delroy, M Della RPA Unavailable Unavailable Delroy, M Della RPA Unavailable Unavailable Delroy, M Della RPA Unavailable Unavailable Delroy, M Della RPA Unavailable Unavailable Delroy, M Della RPA Unavailable Unavailable Dleroy, M Della RPA Unavailable Unavailable Delroy, M [...] Unavailable Delroy, M Della RPA Unavailable Unavailable Delory, M Della RPA Unavailable Unavailable Delroy, M [...] is protected by Article 27-F of the [facility] Public Health law. If you continue you may have access to information: Regarding HIV / AIDS; Provided by facilities licensed or operated by the [facility] Office of Mental Health; or Provided by the [facility] Office for People With Developmental Disabilities. If such information is present, then the following [facility] mandated warning applies: This information has [...] law may result in a fine or senior care sentence or both. A general authorization for the release of medical or other information is NOT sufficient authorization for further disc losure. Family History Family Member Name Family Member Gender Family Member Status Date o f Status Description Data Source(s) Unknown Unknown Problem [facility] ([facility] [employer]) Unknown Female Problem [facility] ([facility]) Unknown Male Problem [facility] Unknown Female Problem [facility] ([facility]) Encounters Encounter Providers Location Date Indications Data Source(s ) Outpatient Attender: DELFIN Cary 1 03:20:00 PM EDT [facility] ([facility] ) Outpatient Attender: DELFIN Cary 0 06/08/2020 10:40:00 AM EDT [facility] ([facility] ) Outpatient Attender: Della Potts [facility] 02/25/2020 07:37:44 PM EDT [facility] Outpatient Attender: DELFIN Cary 0 02/24/2020 02:40:00 PM EDT [facility] ([facility] ) Outpatient Attender: Shanta Cary 11:45:00 AM EDT [facility] ([facility] ) Medications Medication Brand Name Start [...] 10/05/2020 12:00:00 AM EST ORAL active [facility] ([facility]) 10 mEq 10/05/2020 12:00:00 AM EST [...] 12:00:00 AM EST ORAL compl eted [facility] ([facility]) 60 ACTUAT Albuterol 0.09 MG/ACTUAT Metered Dose Inhaler Albu terol Sulfate HFA 07/24/2020 12:00:00 AM EST RESPIRATORY active [facility] ([facility]) 5 mg 07/23/2020 12:00:00 AM EST [...] 07/17/2020 12:00:00 AM EDT ORAL completed [facility] ([facility]) Potassium Chloride 20 MEQ Extended Release Oral Tablet Potassium Chloride [facility] 06/23/2020 12:00:00 AM EDT ORAL completed [facility] ([facility]) 20 mg 06/19/2020 12:00:00 AM EDT [...] 06/12/2020 12:00:00 AM EDT ORAL completed [facility] ([facility]) tiotropium 0.018 MG/ACTUAT Inhalant Powder [Spiriva] Spiriva Handihaler 06/08/2020 12:00:00 AM EDT active [facility] ([facility]) Furosemide 20 MG Oral Tablet Furosemide 06/08/2020 12:00:00 AM EDT ORAL active [facility] ([facility]) 20 mg 06/08/2020 12:00:00 AM [...] to zhang Policy Zhang Plan Information [facility] [id number] SP [id number] MEDICARE [id number] SP [id number] UMR O [id number] S [id number] MEDICARE [id number] S [id number] P53 [place] S [id number] S [id number] Medicare P [id number] S [id number] A [place]/Umr (Old) Medigap Part B [id number] Self [id number] Medicare Natl Govt Servic Medicare Primary [id number] Self [id number] Umr (New [place]) Medigap Part B [id number] Self [id number] [place] Primary [id number] Self [id number] Umr Medigap Part B [id number] Self [id number] [facility] [id number] SP [id number] [place] Primary [id number] Self [id number] [place] (Old) Medigap Part B [id number] Self [id number] Medicare [place] Govt Servic Medicare Primary [id number] Self [id number] [place] (Old) Medigap Part B [id number] Self [id number] Medicare [place] Govt Servic Medicare Primary [id number] Self [id number] [place]/Umr (Old) Medigap Part B [id number] Self [id number] Medicare [place] Govt Servic Medicare Primary [id number] Self [id number] POMCO [id number] SP [id number] MEDICARE [id number] SP [id number] A [place]/Umr (Old) Medigap Part B [id number] Self [id number] Medicare [place]l Govt Servic Medicare Primary [id number] Self [id number] [place] Ppo Medigap Part B [id number] Self [id number] Medicare [place] Govt Servic Medicare Primary [id number] Self [id number] [place] Ppo Medigap Part B [id number] Self [id number] Medicare [place] Govt Servic Medicare Primary [id number] Self [id number] [place] Ppo Medigap Part B [id number] Self [id number] Medicare Natl Govt Servic Medicare Primary [id number] Self [id number] [place] Ppo Medigap Part B [id number] Self [id number] Medicare [place] Govt Servic Medicare Primary [id number] Self [id number] [place] Ppo Medigap Part B [id number] Self [id number] Medicare [place] Govt Servic Medicare Primary [id number] Self [id number] [place] Ppo Medigap Part B [id number] Self [id number] Medicare [place] Govt Servic Medicare Primary [id number] Self [id number] [place]OM[place] PPO O [id number] S [id number] MEDICARE C [id number] S [id number] A [facility] C [id number] S [id number] [place] Ppo Medigap Part B [id number] Self [id number] Medicare Natl Govt Servic Medicare Primary [id number] Self [id number] [place] (pr) Medigap Part B Self Medicare Rust Medicare Primary Self [place] Ppo Medigap Part B 335 Self 335 Medicare [place]l Govt Servic Medicare Primary Self [place] Medigap Part B 335 Self 335 Medicare [place] Medicare Primary Self POMCO [id number] SP [id number] POMCO [id number] SP [id number] POM[place] PPO S [id number] S [id number] POMCO [id number] SP [id number] A [id number] Results ID Date Data Source [id number] 11/04/2020 01:31:00 PM EST [facility] ([facility]) Name Value Range Interpretation Code Description Data Meseret e(s) Supporting Document(s) Glucose [Mass/volume] in Serum or Plasma 145 mg/dL 74-99 [facility] ([facility]) 100-125 mg/dL PRE-DIABETES/FASTING >126 mg/dL DIABETES/FASTING Creatinine 1.0 mg/dL 0.6-1.3 [facility] ([facility]) Urea nitrogen [Mass/volume] in Serum or Plasma 31 mg/dL 7-18 [facility] ([facility]) Sodium [Moles/volume] in Serum or Plasma 145 meq/L 136-145 [facility] ([facility]) Potassium [Moles/volume] in Serum or Plasma 4.3 meq/L 3.5-5.1 [facility] ([facility]) Chloride [Moles/volume] in Serum or Plasma 100 meq/L 98-107 [facility] Carbon dioxide, total [Moles/volume] in Serum or Plasma 38 meq/L 21 -32 [facility] Glomerular filtration rate/1.73 sq M pre dicted among non-blacks [Volume Rate/Area] in Serum or Plasma by Creatinine-based formula (MDRD) 54 mL/min [facility] Glomerular filtration rate/1.73 sq M pre dicted among blacks [Volume Rate/Area] in Serum or Plasma by Creatinine-based formula (MDRD) Laboratory test result [facility] <content>CHRONIC KIDNEY DISEASE STAGING PER NKF</content>
<content></content>
<content>STAGE I & II GFR >= 60 NORMAL TO MILDLY DECREASED</content>
<content>STAGE III GFR 30-59 MODERATELY DECREASED</content>
<content>STAGE IV GFR 15-29 SEVERELY DECREASED</content>
<content>STAGE V GFR <15 VERY LITTLE GFR LEFT</content>
<content>ESRD GFR <15 ON STAVE LOG CUT OFF SAW OPERATOR</content>
<content></content> Calcium [Mass/volume] in Serum or Plasma 9.4 mg/dL 8.5-10.1 [facility] ([facility]) ID Date Data Source [id number] 11/04/2020 01:31:00 PM EST [facility] ([facility]) Name Value Range Interpretation Code Description Data Meseret rce(s) Supporting Document(s) Leukocytes [#/volume] in Blood by Automated count 15.3 x10*3/UL 4.1-1 0.9 [facility] ([facility]) NOTE: RESULT VERIFIED. Erythrocytes [#/volume] in Blood by Automated count 4.72 x10*6/UL 4.2 0-6.30 [facility] ([facility]) Hemoglobin [Mass/volume] in Blood 14.5 g/dL 12.0-18.0 [facility] Hematocrit [Volume Fraction] of Blood by Automated count 44.3 % 3 7.0-51.0 [facility] MCV 93.8 fL 80.0-97.0 [facility] ([facility]) Erythrocyte distribution width [Ratio] by Automated count 13.5 % 11.6-13.7 [facility] ([facility]) MCH 30.8 pg 26.0-32.0 [facility] MCHC 32.8 g/dL 31.0-38.0 [facility] ([facility]) Platelets [#/volume] in Blood by Automated count 147 x10*3/UL 140-440 [facility] ([facility]) MPV 9.2 FL 7.8-11.0 [facility] Lymph % 8.3 % 10.0-58.5 [facility] Neut % 89.4 % 37.0-92.0 [facility] Lymph # 1.2 x10*3/UL 0.6-4.1 [facility] ([facility]) Mid % 2.3 % 1.7-9.3 [facility] Mid # 0.4 x10*3/UL 0.1-0.6 [facility] ([facility]) Neut # 13.7 x10*3/UL 2.0-7.8 [facility] ([facility]) ID Date Data Source [id number] 10/28/2020 01:29:00 PM EST [facility] Name Value Range Interpretation Code Description Data Meseret rce(s) Supporting Document(s) SARS-CoV-2 (COVID 19) NEGATIVE - SARS-CoV-2 (COVID19) [facility] This lab was ordered by [facility] a nd reported by [facility]. ID Date Data Source [id number] 10/18/2020 01:00:00 AM EST [facility] Name Value Range Interpretation Code Description Data Meseret rce(s) Supporting Document(s) SARS coronavirus 2 RNA [Presence] in Res piratory specimen by NAINA with probe detection NEGATIVE [facility] This lab was ordered by [facility] a nd reported by [facility]. ID Date Data Source [id number] 07/19/2020 10:17:00 AM EST [facility] ([facility]) Name Value Range Interpretation Code Description Data Meseret rce(s) Supporting Document(s) Bedside Glucose 105 mg/dL 83-110 [facility] ([facility]) ID Date Data Source [id number] 07/19/2020 09:49:00 AM EST [facility] ([facility]) Name Value Range Interpretation Code Description Data Meseret rce(s) Supporting Document(s) Magnesium [Moles/volume] in Serum or Plasma 1.6 mg/dL 1.8-2.4 [facility] ([facility]) Thyrotropin [Units/volume] in Serum or Plasma by Detec tion limit <= 0.05 mIU/L 1.440 uIU/ML 0.358-3.740 [facility] ([facility] ) Thyroxine (T4) free [Mass/volume] in Serum or Plasma 1.05 ng/dL 0.76- 1.46 [facility] ([facility]) ID Date Data Source [id number] 07/19/2020 09:49:00 AM EST [facility] ([facility]) Name Value Range Interpretation Code Description Data Meseret rce(s) Supporting Document(s) Blood Urea Nitrogen 21 mg/dL 7-18 [facility] ([facility]) Glucose, Fasting 131 mg/dL 70-100 [facility] ([facility]) Glomerular Filtration Rate 55.9 [facility] ([facility]) <content>Units are mL/min/1.73 m2</content>
<content></content>
<content>Chronic Kidney Disease Staging per NKF:</content>
<content></content>
<content>Stage I & II GFR >=60 Normal to Mildly Decreased</content>
<content>Stage III GFR 30- 59 Moderately Decreased</content>
<content>Stage IV GFR 15-29 Severely Decreased</content>
<content>Stage V GFR <15 Very Little GFR Left</content>
<content>ESRD GFR <15 on STAVE LOG CUT OFF SAW OPERATOR</content>
<content></content> Sodium Level 141 meq/L 136-145 [facility] ([facility]) Creatinine For GFR 1.02 mg/dL 0.55-1.30 [facility] ([facility]) Potassium Serum 3.6 meq/L 3.5-5.1 [facility] ([facility]) Chloride Level 101 meq/L 98-107 [facility] ([facility]) Carbon Dioxide Level 38 meq/L 21-32 [facility] ([facility]) Anion Gap 2 meq/L 8-16 [facility] Calcium Level 8.9 mg/dL 8.8-10.2 [facility] ([facility]) ID Date Data Source [id number] 07/19/2020 09:49:00 AM EST [facility] ([facility]) Name Value Range Interpretation Code Description Data Meseret rce(s) Supporting Document(s) CK-MB Value Mass Laboratory test result [facility] ([facility]) CPK Creatine Phosphokinase 38 U/L 26-192 [facility] ([facility]) MB/CK Relative Index 2.63 [facility] ([facility]) <content>DIAGNOSIS CRITERIA</content>
<content>MMB ng/ml Relative Index (RI)</content>
<content>NON-AMI < or = 5 N/A</content>
<content>MEYER ZONE > 5 < or = 4</content>
<content>AMI > 5 > 4</content>
<content></content> Troponin I Laboratory test result [facility] ([facility]) <content>Troponin I Reference Interval f or Siemens [place] LOCI:</content>
<content></content>
<content>99th Percentile= 0.00-0.045 ng/ml</content>
<content></content>
<content>Risk Stratification:</content>
<content><= 0.10 ng/ml Decreased Risk for Adverse Clinical</content>
<content>Events.</content>
<content>0.10-1.50 ng/ml Increased Risk for Adverse Clinical</content>
<content>Events. Evaluation of additional</content>
<content>criterion and/or repeat testing in 2-6</content>
<content>hours is suggested to rule out myocardial</content>
<content>damage.</content>
<content>>= 1.50 ng/ml Indicative of Myocardial Injury.</content>
<content></content> ID Date Data Source [id number] 07/19/2020 09:49:00 AM EST [facility] ([facility]) Name Value Range Interpretation Code Description Data Meseret rce(s) Supporting Document(s) aPTT in Blood by Coagulation assay 43.2 s 24.2-38.5 [facility] ID Date Data Source [id number] 07/19/2020 09:49:00 AM EST [facility] ([facility]) Name Value Range Interpretation Code Description Data Meseret rce(s) Supporting Document(s) Prothrombin Time 16.7 s 12.5-14.3 [facility] ([facility]) Inr 1.32 [facility] ([facility]) THERAPUTIC HUMAN INR VALUES INDICATIONS NORMAL RANGES PROPHYLAXIS/TREATMENT OF: VENOUS THROMBOSIS 2.0-3.0 PULMONARY EMBOLISM 2.0-3.0 PREVENTION OF SYSTEMIC EMBOLISM FROM: TISSUE HEART VALVES 2.0-3.0 ACUTE MYOCARDIAL INFARCTION 2.0-3.0 VALVULAR HEART DISEASE 2.0-3.0 ATRIAL FIBRILLATION 2.0-3.0 MECHANICAL VALVES(HIGH RISK) 2.5-3.5 RECURRENT MYOCARDIAL INFARCTION 2.5-3.5 ID Date Data Source [id number] 07/19/2020 09:49:00 AM EST [facility] ([facility]) Name Value Range Interpretation Code Description Data Meseret rce(s) Supporting Document(s) White Blood Count 10.5 10 4.0-10.0 [facility] ([facility]) Hematocrit 43.2 % 36.0-47.0 [facility] Hemoglobin 13.3 g/dL 12.0-15.5 [facility] ([facility]) Red Blood Count 4.36 10 4.00-5.40 [facility] ([facility]) Mean Corpuscular Volume 99.1 fl 80.0-96.0 [facility] ([facility]) Mean Corpuscular HGB Conc 30.8 g/dL 32.0-36.5 MED[facility] NT ([facility]) Mean Corpuscular Hemoglobin 30.5 pg 27.0-33.0 [facility] ([facility]) Red Cell Distribution Width 13.2 % 11.5-14.5 [place] [facility] ([facility]) Platelet Count, Automated 207 10 150-450 [facility] NT ([facility]) Neutrophils % 74.5 % 36.0-66.0 [facility] ([facility]) Catron % 5.8 % 0.0-5.0 [facility] Lymph % 15.8 % 24.0-44.0 [facility] Baso % 0.5 % 0.0-1.0 [facility] Immature Granulocyte % 0.4 % 0-3.0 [facility] ([facility]) Eos % 3.0 % 0.0-3.0 [facility] Nucleated Red Blood Cell % 0.0 % 0-0 [facility] ([facility]) Lymph # 1.7 10 1.5-5.0 [facility] Neutrophils # 7.8 10 1.5-8.5 [facility] ([facility]) Catron # 0.6 10 0.0-0.8 [facility] Baso # 0.1 10 0.0-0.2 [facility] Eos # 0.3 10 0.0-0.5 [facility] ID Date Data Source [id number] 06/22/2020 03:47:00 PM EDT [facility] ([facility]) Name Value Range Interpretation Code Description Data Meseret rce(s) Supporting Document(s) Urea nitrogen [Mass/volume] in Serum or Plasma 26 mg/dL 7-18 [facility] ([facility]) Glucose [Mass/volume] in Serum or Plasma 131 mg/dL 74-99 [facility] ([facility]) 100-125 mg/dL PRE-DIABETES/FASTING >126 mg/dL DIABETES/FASTING Sodium [Moles/volume] in Serum or Plasma 145 meq/L 136-145 [facility] ([facility]) Potassium [Moles/volume] in Serum or Plasma 3.1 meq/L 3.5-5.1 [facility] ([facility]) Creatinine 1.1 mg/dL 0.6-1.3 [facility] ([facility]) Carbon dioxide, total [Moles/volume] in Serum or Plasma 36 meq/L 21 -32 [facility] ([facility]) Chloride [Moles/volume] in Serum or Plasma 102 meq/L 98-107 [facility] ([facility]) Calcium [Mass/volume] in Serum or Plasma 8.8 mg/dL 8.5-10.1 [facility] ([facility]) Glomerular filtration rate/1.73 sq M pre dicted among blacks [Volume Rate/Area] in Serum or Plasma by Creatinine-based formula (MDRD) 58 mL/min [facility] ([facility]) <content>CHRONIC KIDNEY DISEASE STAGING PER NKF</content>
<content></content>
<content>STAGE I & II GFR >= 60 NORMAL TO MILDLY DECREASED</content>
<content>STAGE III GFR 30-59 MODERATELY DECREASED</content>
<content>STAGE IV GFR 15-29 SEVERELY DECREASED</content>
<content>STAGE V GFR <15 VERY LITTLE GFR LEFT</content>
<content>ESRD GFR <15 ON STAVE LOG CUT OFF SAW OPERATOR</content>
<content></content> Glomerular filtration rate/1.73 sq M pre dicted among non-blacks [Volume Rate/Area] in Serum or Plasma by Creatinine-based formula (MDRD) 48 mL/min [facility] ID Date Data Source [id number] 06/08/2020 11:11:00 AM EDT [facility] Name Value Range Interpretation Code Description Data Meseret rce(s) Supporting Document(s) Natriuretic peptide B [Mass/volume] in Serum or Plasma 189.0 pg/mL 0.0-100.0 [facility] ID Date Data Source [id number] 06/08/2020 11:11:00 AM EDT [facility]) Name Value Range Interpretation Code Description Data Meseret rce(s) Supporting Document(s) Glucose [Mass/volume] in Serum or Plasma 110 mg/dL 74-99 [facility] ([facility]) 100-125 mg/dL PRE-DIABETES/FASTING >126 mg/dL DIABETES/FASTING Urea nitrogen [Mass/volume] in Serum or Plasma 18 mg/dL 7-18 [facility] ([facility]) Sodium [Moles/volume] in Serum or Plasma 141 meq/L 136-145 [facility] ([facility]) Potassium [Moles/volume] in Serum or Plasma 3.6 meq/L 3.5-5.1 [facility] ([facility]) Creatinine 0.9 mg/dL 0.6-1.3 [facility] ([facility]) Carbon dioxide, total [Moles/volume] in Serum or Plasma 35 meq/L 21 -32 [facility] ([facility]) Chloride [Moles/volume] in Serum or Plasma 101 meq/L 98-107 [facility] ([facility]) Calcium [Mass/volume] in Serum or Plasma 9.0 mg/dL 8.5-10.1 [facility] ([facility]) Glomerular filtration rate/1.73 sq M pre dicted among non-blacks [Volume Rate/Area] in Serum or Plasma by Creatinine-based formula (MDRD) Laboratory test result [facility] Glomerular filtration rate/1.73 sq M pre dicted among blacks [Volume Rate/Area] in Serum or Plasma by Creatinine-based formula (MDRD) Laboratory test result [facility] ([facility]) <content>CHRONIC KIDNEY DISEASE STAGING PER NKF</content>
<content></content>
<content>STAGE I & II GFR >= 60 NORMAL TO MILDLY DECREASED</content>
<content>STAGE III GFR 30-59 MODERATELY DECREASED</content>
<content>STAGE IV GFR 15-29 SEVERELY DECREASED</content>
<content>STAGE V GFR <15 VERY LITTLE GFR LEFT</content>
<content>ESRD GFR <15 ON STAVE LOG CUT OFF SAW OPERATOR</content>
<content></content> ID Date Data Source [id number] 05/27/2020 07:44:00 AM EDT [facility] ([facility]) Name Value Range Interpretation Code Description Data Meseret rce(s) Supporting Document(s) ABG Partial Pressure Co2 56.9 mmHg 35.0-45.0 MED[facility] T ([facility]) ABG pH (Arterial) 7.402 units 7.350-7.450 [facility] ( [facility]) ABG Total Co2 36.4 meq/L 23.0-31.0 [facility] ([facility]) ABG Partial Pressure O2 131.8 mmHg 75.0-100.0 MEDE NT ([facility]) ABG Hco3 34.6 meq/L 22.0-26.0 [facility] [facility] ABG O2 Saturation 98.9 % 95.0-99.0 [facility] ([facility]) ABG Standard Hco3 31.8 meq/L 22.0-26.0 [facility] ABG Base Excess 7.9 [facility] ID Date Data Source [id number] 05/27/2020 07:42:00 AM EDT [facility] Name Value Range Interpretation Code Description Data Meseret rce(s) Supporting Document(s) Respiratory Panel [facility] This respiratory PCR panel detects Influ [...] - SARS-CoV-2 (COVID19) ID Date Data Source [id number] 05/27/2020 07:42:00 AM EDT [facility]) Name Value Range Interpretation Code Description Data Meseret rce(s) Supporting Document(s) Natriuretic peptide.B prohormone N-Terminal [Mass/volu me] in Serum or Plasma 2410 pg/mL [facility] ID Date Data Source [id number] 05/27/2020 07:42:00 AM ED [facility] Name Value Range Interpretation Code Description Data Meseret rce(s) Supporting Document(s) Blood Urea Nitrogen 15 mg/dL 7-18 [facility]) Glucose, Fasting 118 mg/dL 70-100 [facility]) Glomerular Filtration Rate Laboratory test result [facility] [facility] <content>Units are mL/min/1.73 m2</content>
<content></content>
<content>Chronic Kidney Disease Staging per NKF:</content>
<content></content>
<content>Stage I & II GFR >=60 Normal to Mildly Decreased</content>
<content>Stage III GFR 30- 59 Moderately Decreased</content>
<content>Stage IV GFR 15-29 Severely Decreased</content>
<content>Stage V GFR <15 Very Little GFR Left</content>
<content>ESRD GFR <15 on STAVE LOG CUT OFF SAW OPERATOR</content>
<content></content> Sodium Level 142 meq/L 136-145 [facility] ([facility]) Creatinine For GFR 0.69 mg/dL 0.55-1.30 [facility] ([facility]) Potassium Serum 3.8 meq/L 3.5-5.1 [facility] ([facility]) Carbon Dioxide Level 42 meq/L 21-32 [facility] ([facility]) Chloride Level 98 meq/L 98-107 [facility] ([facility]) Calcium Level 9.0 mg/dL 8.8-10.2 [facility] ([facility]) Anion Gap 2 meq/L 8-16 [facility] [facility] ID Date Data Source [id number] 05/27/2020 07:42:00 AM EDT [facility] ([facility]) Name Value Range Interpretation Code Description Data Meseret rce(s) Supporting Document(s) Alt/SGPT 11 U/L 12-78 [facility] [facility] Ast/Sgot 10 U/L 7-37 [facility] ([facility]) Alkaline Phosphatase 79 U/L 45-117 [facility] ([facility]) Bilirubin,Total 1.1 mg/dL 0.2-1.0 [facility] ([facility]) Total Protein 6.5 GM/DL 6.4-8.2 [facility] ([facility]) Bilirubin,Direct 0.4 mg/dL 0.0-0.2 [facility] ([facility]) Albumin 3.3 GM/DL 3.2-5.2 [facility] ([facility] Albumin/Globulin Ratio 1.0 1.2-2.2 [facility] ([facility]) ID Date Data Source [id number] 05/27/2020 07:42:00 AM EDT [facility] ([facility]) Name Value Range Interpretation Code Description Data Meseret rce(s) Supporting Document(s) CPK Creatine Phosphokinase 32 U/L 26-192 [facility] ([facility]) CK-MB Value Mass 1.1 ng/mL [facility] Troponin I Laboratory test result [facility] ([facility] <content>Troponin I Reference Interval f or Siemens [place] LOCI:</content>
<content></content>
<content>99th Percentile= 0.00-0.045 ng/ml</content>
<content></content>
<content>Risk Stratification:</content>
<content><= 0.10 ng/ml Decreased Risk for Adverse Clinical</content>
<content>Events.</content>
<content>0.10-1.50 ng/ml Increased Risk for Adverse Clinical</content>
<content>Events. Evaluation of additional</content>
<content>criterion and/or repeat testing in 2-6</content>
<content>hours is suggested to rule out myocardial</content>
<content>damage.</content>
<content>>= 1.50 ng/ml Indicative of Myocardial Injury.</content>
<content></content> MB/CK Relative Index 3.44 [facility] <content>DIAGNOSIS CRITERIA</content>
<content>MMB ng/ml Relative Index (RI)</content>
<content>NON-AMI < or = 5 N/A</content>
<content>MEYER ZONE > 5 < or = 4</content>
<content>AMI > 5 > 4</content>
<content></content> ID Date Data Source [id number] 05/27/2020 07:42:00 AM EDT [facility] Name Value Range Interpretation Code Description Data Meseret rce(s) Supporting Document(s) Prothrombin Time 16.2 s 11.8-14.0 [facility]) Inr 1.28 [facility] ([facility]) THERAPUTIC HUMAN INR VALUES INDICATIONS NORMAL RANGES PROPHYLAXIS/TREATMENT OF: VENOUS THROMBOSIS 2.0-3.0 PULMONARY EMBOLISM 2.0-3.0 PREVENTION OF SYSTEMIC EMBOLISM FROM: TISSUE HEART VALVES 2.0-3.0 ACUTE MYOCARDIAL INFARCTION 2.0-3.0 VALVULAR HEART DISEASE 2.0-3.0 ATRIAL FIBRILLATION 2.0-3.0 MECHANICAL VALVES(HIGH RISK) 2.5-3.5 RECURRENT MYOCARDIAL INFARCTION 2.5-3.5 ID Date Data Source [id number] 05/27/2020 07:42:00 AM EDT [facility] ([facility]) Name Value Range Interpretation Code Description Data Meseret rce(s) Supporting Document(s) Hemoglobin 13.5 g/dL 12.0-15.5 [facility] ([facility]) White Blood Count 11.7 10 4.0-10.0 [facility] ([facility]) Red Blood Count 4.31 10 4.00-5.40 [facility] ([facility]) Mean Corpuscular Volume 101.4 fl 80.0-96.0 [facility] ([facility]) Mean Corpuscular Hemoglobin 31.3 pg 27.0-33.0 [facility] ([facility]) Hematocrit 43.7 % 36.0-47.0 [facility] ([facility]) Platelet Count, Automated 181 10 150-450 MED[facility] NT ([facility]) Red Cell Distribution Width 13.4 % 11.5-14.5 [facility] ([facility]) Mean Corpuscular HGB Conc 30.9 g/dL 32.0-36.5 [facility] NT ([facility]) Neutrophils % 83.4 % 36.0-66.0 [facility] ([facility]) Lymph % 9.5 % 24.0-44.0 [facility] ([place] [facility]) Catron % 4.9 % 0.0-5.0 [facility] ([facility]) Nucleated Red Blood Cell % 0.0 % 0-0 [facility] ([facility]) Eos % 1.3 % 0.0-3.0 [facility] ([place] [facility]) Immature Granulocyte % 0.5 % 0-3.0 [facility] ([facility]) Baso % 0.4 % 0.0-1.0 [facility] ([place] [facility]) Lymph # 1.1 10 1.5-5.0 [facility] ([place] [facility]) Neutrophils # 9.8 10 1.5-8.5 [facility] ([facility]) Catron # 0.6 10 0.0-0.8 [facility] ([place] [facility]) Baso # 0.1 10 0.0-0.2 [facility] ([place] [facility]) Eos # 0.2 10 0.0-0.5 [facility] [facility] ID Date Data Source [id number] 02/23/2020 04:13:00 PM EDT [facility] ([facility]) Name Value Range Interpretation Code Description Data Meseret rce(s) Supporting Document(s) C reactive protein [Mass/volume] in Serum or Plasma by High sensitivity method 4.54 mg/dL 0.00-0.30 [facility] ([facility] ) Urate [Mass/volume] in Serum or Plasma 7.8 mg/dL 2.6-6.0 [facility] ([facility]) ID Date Data Source [id number] 02/23/2020 04:13:00 PM EDT [facility] ([facility]) Name Value Range Interpretation Code Description Data Meseret rce(s) Supporting Document(s) Creatinine For GFR 0.62 mg/dL 0.55-1.30 [facility] ([facility]) Glucose, Fasting 103 mg/dL 70-100 [facility] ([facility]) Blood Urea Nitrogen 17 mg/dL 7-18 [facility] ([facility]) Glomerular Filtration Rate Laboratory test result [facility] ([facility]) <content>Units are mL/min/1.73 m2</content>
<content></content>
<content>Chronic Kidney Disease Staging per NKF:</content>
<content></content>
<content>Stage I & II GFR >=60 Normal to Mildly Decreased</content>
<content>Stage III GFR 30- 59 Moderately Decreased</content>
<content>Stage IV GFR 15-29 Severely Decreased</content>
<content>Stage V GFR <15 Very Little GFR Left</content>
<content>ESRD GFR <15 on STAVE LOG CUT OFF SAW OPERATOR</content>
<content></content> Chloride Level 101 meq/L 98-107 [facility] ([facility]) Sodium Level 144 meq/L 136-145 [facility] ([facility]) Potassium Serum 3.8 meq/L 3.5-5.1 [facility] ([facility]) Anion Gap 4 meq/L 8-16 [facility] ([place] [facility]) Calcium Level 8.2 mg/dL 8.8-10.2 [facility] ([facility]) Carbon Dioxide Level 39 meq/L 21-32 [facility] ([facility]) ID Date Data Source [id number] 02/23/2020 04:13:00 PM EDT [facility] ([facility]) Name Value Range Interpretation Code Description Data Meseret rce(s) Supporting Document(s) Erythrocyte sedimentation rate by Westergren method 25 mm/hr 0-30 [facility] ([facility]) ID Date Data Source [id number] 02/23/2020 04:13:00 PM EDT [facility] ([facility]) Name Value Range Interpretation Code Description Data Meseret rce(s) Supporting Document(s) White Blood Count 13.0 10 4.0-10.0 [facility] ([facility]) Hemoglobin 13.6 g/dL 12.0-15.5 [facility] [facility]) Red Blood Count 4.41 10 4.00-5.40 [facility] ([facility]) Hematocrit 44.2 % 36.0-47.0 [facility] [facility]) Mean Corpuscular Hemoglobin 30.8 pg 27.0-33.0 ME DENT ([facility]) Red Cell Distribution Width 13.2 % 11.5-14.5 [facility] ([facility]) Mean Corpuscular Volume 100.2 fl 80.0-96.0 [facility] ([facility]) Mean Corpuscular HGB Conc 30.8 g/dL 32.0-36.5 [facility] NT ([facility]) Platelet Count, Automated 183 10 150-450 [facility] NT ([facility]) Neutrophils % 82.2 % 36.0-66.0 [facility] ([facility]) Lymph % 9.1 % 24.0-44.0 [facility] ([place] [facility]) Baso % 0.4 % 0.0-1.0 [facility] ([place] [facility]) Catron % 6.6 % 0.0-5.0 [facility] [facility] Eos % 1.3 % 0.0-3.0 [facility] [facility] Neutrophils # 10.7 10 1.5-8.5 [facility] ([facility]) Immature Granulocyte % 0.4 % 0-3.0 [facility] ([facility]) Lymph # 1.2 10 1.5-5.0 [facility] ([place] [facility] Nucleated Red Blood Cell % 0.0 % 0-0 [facility] ([facility]) Baso # 0.1 10 0.0-0.2 [facility] ([place] [facility]) Catron # 0.9 10 0.0-0.8 [facility] [facility] Eos # 0.2 10 0.0-0.5 [facility] [facility] Procedure Vital Signs ID Date Data Source UNK Name Value Range Interpretation Code Description Data Source(s) Body mass index (BMI) [Ratio] 36.8 kg/m2 36.8 k g/m2 [facility] ([facility]) Body weight 176.00 [lb_av] 176.00 [lb_av] [facility] T ([facility]) Body height 58 [in_i] 58 [in_i] [facility] ([facility]) 4'10" Heart rate 78 /min 78 /min [facility] ([facility]) Diastolic blood pressure 68 mm[Hg] 68 mm[Hg] [facility] ([facility]) Systolic blood pressure 124 mm[Hg] 124 mm[Hg] [facility] ([facility]) Body mass index (BMI) [Ratio] 39.7 kg/m2 39.7 k g/m2 [facility] ([facility]) Body weight 190.00 [lb_av] 190.00 [lb_av] [facility] Body height 58 [in_i] 58 [in_i] [facility] ([facility]) 4'10" Heart rate 82 /min 82 /min [facility] ([facility]) Diastolic blood pressure 70 mm[Hg] 70 mm[Hg] [facility] ([facility]) Systolic blood pressure 120 mm[Hg] 120 mm[Hg] [facility] ([facility]) Body mass index (BMI) [Ratio] 39.1 kg/m2 39.1 k g/m2 [facility] ([facility]) Oxygen saturation in Arterial blood by Pulse oximetry 96 % 96 % [facility] ([facility]) With O2 Body weight 187.00 [lb_av] 187.00 [lb_av] [facility] ([facility]) Body height 58 [in_i] 58 [in_i] [facility] ([facility]) 4'10" Heart rate 89 /min 89 /min [facility] ([facility]) Diastolic blood pressure 70 mm[Hg] 70 mm[Hg] [facility] ([facility]) Systolic blood pressure 130 mm[Hg] 130 mm[Hg] [facility] ([facility])
[2020-11-11 16:15] LABS: CK-MB VALUE MASS < 1.0 NG/ML (<3.6); CPK CREATINE PHOSPHOKINASE 17 U/L (26-192); MB/CK RELATIVE INDEX 5.88 (< OR =4); TROPONIN I 0.02 NG/ML (< 0.10)
[2020-11-11 17:00] VITALS: BP 109/62
[2020-11-11] MEDS: diazePAM 5MG TABLET PO SCH ×2 (17:28→21:58)
[2020-11-11] MEDS: FUROSEMIDE 20 MG TAB PO SCH (17:28)
[2020-11-11 17:29] VITALS: BP 109/62
[2020-11-11] MEDS ORDERED: PERCOCET 5MG/325MG TAB PO PRN (17:45)
[2020-11-11] MEDS: PERCOCET 5MG/325MG TAB PO PRN (17:58)
--- NOTE | 2020-11-11 21:07 | REPVR ---
PROCEDURE INFORMATION: Exam: MR Cervical Spine Without Contrast Exam date and time: 11/11/2020 7:40 PM Age: 75 years old Clinical indication: Neck pain; Patient HX: Pain radiating from neck, to shoulder, arm and chest; Additional info: Pain radiationg from neck, to shoulder, arm and chest TECHNIQUE: Imaging protocol: Multiplanar magnetic resonance images of the cervical spine without contrast. COMPARISON: CT Spine,cervical w/o contrast 07/19/2020 9:52 AM FINDINGS: Motion limited examination. Nonspecific straightening. Grade 1 anterolisthesis of C4 on C5 and C6 on C7. Vertebral body heights are preserved. Multilevel disc desiccation and disc space narrowing. No evidence of discitis/osteomyelitis. No abnormal cord signal or cord expansion. No epidural fluid collection. C2-C3: Mild disc osteophyte complex with bilateral facet joint arthropathy. No significant central or foraminal stenosis. C3-C4: Minimal disc osteophyte complex with uncinate spurring greater on the right. Bilateral facet joint arthropathy. No significant central canal stenosis. There is moderate right foraminal stenosis. C4-C5: Mild disc osteophyte complex with bilateral uncinate spurring and facet joint arthropathy. Mild central canal stenosis, moderate to severe right foraminal stenosis and moderate left foraminal stenosis. C5-C6: Kbpp-ss-jwukwhcz disc osteophyte complex with bilateral uncinate spurring and facet joint arthropathy. There is sgoo-zs-obliadyl central canal stenosis and moderate to severe bilateral foraminal stenosis. C6-C7: Mild disc osteophyte complex with bilateral uncinate spurring. Borderline central canal stenosis. Mild right and moderate to severe left foraminal stenosis. C7-T1: Mild disc osteophyte complex with bilateral uncinate spurring and facet joint arthropathy. [id number]-ik-upmtjnkj central canal stenosis. There is moderate bilateral foraminal stenosis. IMPRESSION: Degenerative findings as above including mild central canal stenosis at C4-C5, xgqm-kr-gvigepio central canal stenosis at C5-C6, borderline central canal stenosis at C6-C7 and bfcv-zb-qyonoylb central canal stenosis at C7-T1. Electronically signed by: Jayjay Willis On 11/11/2020 21:08:12 PM
--- NOTE | 2020-11-11 21:31 | HPEPDOC ---
General Date of Admission 11/11/20 Date of Service: Nov 11, 2020 Chief Complaint The patient is a 75-year-old female admitted with a reason for visit of Chest Pain. History of Present Illness 75 year old female with multiple medical comorbidities as below presented to the ED with sudden on set left upper chest and shoulder pain radiating back to the neck and down her arms which stated at around 3 am today. She reports that she was sleeping on her back and the pain woke her up. She said the pain was sharp constant in nature about 8/10 in intensity and worsening with breathing. She had 2 ekgs in the ED which showed Afib with controlled rate, 2 cardiac enzymes which were negative. Her pain improved after morphine and nitropatch but was still present. Her CT angio was negative for Pulmonary embolism or any vascular catastrophe. She is being admitted for chest pain rule out ACS. Home Medications Scheduled Apixaban (Eliquis) 5 Mg Tablet, 5 MG PO BID, (Reported) Ascorbic Acid (Ascorbic Acid) 500 Mg Tablet, 500 MG PO DAILY, (Reported) TAKES MID-AFTERNOON Cholecalciferol (Vitamin D3) (Vitamin D3) 1,000 Unit Tablet, 2,000 UNITS PO DAILY, (Reported) TAKES MID-AFTERNOON Diazepam (Valium) 5 Mg Tab, 5 MG PO TID, (Reported) Furosemide (Furosemide) 20 Mg Tablet, 20 MG PO DAILY, (Reported) Hydrochlorothiazide (Hydrochlorothiazide) 25 Mg Tablet, 25 MG PO DAILY, (Reporte d) Magnesium Oxide (Magnesium) 400 Mg Capsule, 400 MG PO DAILY, (Reported) Metoprolol Tartrate (Metoprolol Tartrate) 25 Mg Tablet, 25 MG PO BID, (Reported) Potassium Chloride (Potassium Chloride) 10 Meq Tab.er.prt, 10 MEQ PO DAILY, (Reported) Tiotropium Mineral (Spiriva) 18 Mcg Cap.w.dev, 18 MCG INH DAILY, (Reported) Vitamin E (Vitamin E) 400 Unit Capsule, 400 UNIT PO DAILY, (Reported) TAKES MID-AFTERNOON Scheduled PRN Albuterol Sulf (Albuterol Sulfate) 2.5 Mg/3 Ml Nebu, 1 VIAL NEB Q4H PRN for SOB/ WHEEZING, (Reported) Albuterol Sulfate (Proair Hfa) 108 Mcg/Act Aer, 2 PUFF INH QID PRN for SHORTNESS OF BREATH Oxycodone HCl/Acetaminophen (Percocet 7.5-325 mg Tablet) 1 Each Tablet, 1 TAB PO TID PRN for PAIN, (Reported) Allergies Coded Allergies: adhesive tape (Verified Allergy, Intermediate, RASH, 12/20/18) latex (Verified Allergy, Intermediate, RASH, 12/20/18) azithromycin (Unverified Allergy, Unknown, Unknown, 10/22/20) Listed under diet Past Medical History Medical History Obesity, Untreated LEANNE, COPD/Emphysema, Chronic respiratory failure with hypoxia and hypercarbia, Mod pulmonary hypertension, Atrial fibrillation , mild mitral regurgitation, mild tricuspid regurgitation.probable, diastolic CHF, C5-6 mild central canal stenosis with DJD, 2 mm spondylolisthesis of C4 ,Generalized anxiety disorder, Vitamin D deficiency, Allergic rhinitis, Osteoarthritis (OA), Hypertension, Osteoporosis, tobacco abuse, chronic back pain, Vertigo, d iverticulosis, right adrenal myolipoma. Surgical History Appendectomy, bilateral tubal ligation, benign neck tumor, bilateral Carpal tunnel surgery, umbilical herniography, left ankle and hand fracture Family History Father had hypertension and kidney failure. Mother had lung cancer. Social History * Smoker: current smoker Alcohol: rarely Drugs: denies A-FIB/CHADSVASC A-FIB History Current/History of A-Fib/PAF?: Yes Current PO Anticoag Therapy: Yes Review of Systems Constitutional: Denies: Chills, Fever, Night Sweats Eyes: Denies: Pain, Vision change ENT: Denies: Head Aches, Ear Pain, Dysphagia Skin: Denies: Rash, Lesions, Breakdown Pulmonary: Reports: Pleuritic Chest Pain; Denies: Dyspnea, Cough Cardiovascular: Reports: Chest Pain Gastrointestinal: Denies: Nausea, Vomiting, Abdominal Pain, Diarrhea Hematologic: Denies: Bruising, Bleeding Excessively Musculoskeletal: Reports: Neck Pain, Back Pain, Shoulder Pain, Joint Pain Neurological: Denies: Weakness, Numbness, Change in speech, Confusion Physical Examination General Exam: Positive: Alert, Cooperative, No Acute Distress Eye Exam: Positive: PERRLA, Conjunctiva & lids normal, EOMI; Negative: Sclera icteric ENT Exam: Positive: Atraumatic, Mucous membr. moist/pink, Pharynx Normal Neck Exam: Positive: Supple; Negative: JVD, thyromegaly Chest Exam: Positive: Normal air movement, Rhonchi (few scattered ronchi) Heart Exam: Positive: Rate Normal, Irregular Rhythm, Normal S1, Normal S2; Negative: Murmurs, Rubs Telemetry: Positive: Atrial fibrillation Abdomen Exam: Positive: Normal bowel sounds, Soft, Tenderness (right upper quadrant), Other (obese) Extremity Exam: Negative: Clubbing, Cyanosis, Edema Vital Signs Vital Signs Date Time Temp Pulse Resp B/P (MAP) Pulse Ox O2 Delivery O2 Flow Rate FiO2 11/11/20 10:15 105 123/56 (78) 94 11/11/20 08:15 18 11/11/20 06:45 Nasal Cannula 3.0 11/11/20 05:37 98.2 Laboratory Data Labs 24H Laboratory Tests 2 11/11/20 05:54: Immature Granulocyte % (Auto) 0.6, Neutrophils (%) (Auto) 85.9H, Lymphocytes (%) (Auto) 6.7L, Monocytes (%) (Auto) 6.0, Eosinophils (%) (Auto) 0.7, Basophils (%) (Auto) 0.1, Neutrophils # (Auto) 14.0H, Lymphocytes # (Auto) 1.1L, Monocytes # (Auto) 1.0H, Eosinophils # (Auto) 0.1, Basophils # (Auto) 0.0, Nucleated Red Blood Cells % (auto) 0.0, Prothrombin Time 17.2H, Prothromb Time International Ratio 1.37, Activated Partial Thromboplast Time 45.0H, POC Troponin I (Misc) 0.04, Anion Gap 8, Glomerular Filtration Rate 56.6, Calcium Level 8.8, Total Bilirubin 2.0H, Direct Bilirubin 0.6H, Aspartate Amino Transf (AST/SGOT) 14, Alanine Aminotransferase (ALT/SGPT) 13, Alkaline Phosphatase 71, Total Creatine Kinase 45, Creatine Kinase MB 1.1, Creatine Kinase MB Relative Index 2.44, Trop onin I < 0.02, WI-Uky-S-Type Natriuretic Peptide 1148H, Total Protein 6.1L, Albumin 3.2, Albumin/Globulin Ratio 1.1L, Lipase 23L 11/11/20 09:21: Blood Gas Bicarbonate Standard 31.7H, Arterial Blood pH 7.391, Arterial Blood Partial Pressure CO2 58.6H, Arterial Blood Partial Pressure O2 139.4H, Arterial Blood Total CO2 36.6H, Arterial Blood HCO3 34.8H, Arterial Blood Base Excess 7.8H, Arterial Blood Oxygen Saturation 99.2H 11/11/20 09:26: Total Creatine Kinase 25L, Creatine Kinase MB 1.1, Creatine Kinase MB Relative Index 4.40H, Troponin I 0.02 CBC/BMP Laboratory Tests 11/11/20 05:54 Microbiology Microbiology 11/11/20 Respiratory Virus Panel (PCR) ([facility]) - Final, Complete Assessment/Plan 75 year old female with multiple medical comorbidities as below presented to the ED with sudden on set left upper chest and shoulder pain radiating back to the neck and down her arms which stated at around 3 am today. She reports that she was sleeping on her back and the pain woke her up. She said the pain was sharp constant in nature about 8/10 in intensity and worsening with breathing. She had 2 ekgs in the ED which showed Afib with controlled rate, 2 cardiac enzymes which were negative. Her pain improved after morphine and nitropatch but was still present. Her CT angio was negative for Pulmonary embolism or any vascular catastrophe. She is being admitted for chest pain rule out ACS. Chest pain, left shoulder pain and left arm pain also going to the back of neck 3 sets of cardiac enzymes are negative, 2 EKGs with no acute ischemic changes unlikely cardiac cause of chest pain likely musculoskeletal MRI cervical spine does show mild to moderate central canal stenosis at differen t levels and also moderate to severe foraminal stenosis at Levels C3-T1 levels Ordered MRI of shoulder also This pain could be a radiculopathy will need referral to cardio as outpatient for work up of CAD in view of her risk factors. Afib chronic rate controlled continue betablocker and eliquis COPD with chronic hypoxic and hypercarbic respiratory failure no exacerbation at present continue inhalers and nebs Obesity/ Untreated LEANNE Mod pulmonary hypertension, Valvular heart disease mild mitral regurgitation, mild tricuspid regurgitation Diastolic CHF chronic no acute exacerbation lasix Chronic generalized paina nd kayla pain and muscle spams on percocet and valium at home will continue Plan / VTE VTE Prophylaxis Ordered?: Yes MADY OLEA MD Nov 11, 2020 11:18
--- NOTE | 2020-11-11 21:39 | REPVR ---
PROCEDURE INFORMATION: Exam: MR Left Upper Extremity Joint Without Contrast; Shoulder Exam date and time: 11/11/2020 7:40 PM Age: 75 years old Clinical indication: Upper arm; Left; Patient HX: Pain radiating from neck, to shoulder, arm and chest; Additional info: Pain radiationg from neck, to shoulder, arm and chest TECHNIQUE: Imaging protocol: MR of the Left upper extremity without contrast. Exam focused on the shoulder. 3D rendering (Not supervised by radiologist): MIP and/or 3D reconstructed images were created by the technologist. COMPARISON: CR Shoulder, complete LEFT 05/16/2016 10:38 AM FINDINGS: Bones and cartilage: Mild cystic change is identified within the bone marrow of the humeral head. Subchondral cystic change is identified within the glenoid process, likely secondary to arthropathy. Acromioclavicular arthropathy is identified, with effacement of the underlying tissue planes. Advanced glenohumeral arthropathy visualized. There is prominent spurring of the humeral head. Mild spurring is noted of the glenoid process. Glenoid cartilage thinning/ loss is visualized. Joint spaces: A minimal acromioclavicular joint effusion is visualized. Small glenohumeral joint effusion. Tiny hypointense loose bodies are identified within this fluid. Glenoid labrum: Heterogeneous increased signal intensity within the superior aspect of the labrum, consistent with labral tears. There is a suggested tear of the posteroinferior aspect of the labrum. Supraspinatus tendon: High-grade partial tearing of the supraspinatus tendon. A small amount of fluid is identified within the subdeltoid/subacromial bursa, and a full-thickness tear cannot be excluded. Infraspinatus tendon: No evidence of tear. Subscapularis tendon: Foci of increased T2 signal intensity are identified within the subscapularis tendon, consistent with partial tears. Teres minor tendon: No evidence of tear. Tendon of biceps brachii: The proximal long head of the biceps tendon is small in caliber, and partial tear cannot be excluded. Glenohumeral ligaments: Edema is identified adjacent to the coracoclavicular ligament, consistent with ligament sprain. No visualized tear of the inferior glenohumeral ligament. Muscles: No visualized acute abnormality. Soft tissues: See above. IMPRESSION: 1. High-grade partial tearing of the supraspinatus tendon. A small amount of fluid is identified within the subdeltoid/subacromial bursa, and a full-thickness tear cannot be excluded. 2. Partial subscapularis tendon tears. 3. Labral tears. 4. Edema is identified adjacent to the coracoclavicular ligament, consistent with ligament sprain. 5. Acromioclavicular arthropathy is identified, with effacement of the underlying tissue planes. 6. Advanced glenohumeral arthropathy visualized. 7. Additional findings described above. Electronically signed by: Kwame Thompson On 11/11/2020 21:39:42 PM
[2020-11-11 22:00] VITALS: BP 107/60
[2020-11-11 22:48] LABS: CK-MB VALUE MASS < 1.0 NG/ML (<3.6); CPK CREATINE PHOSPHOKINASE 20 U/L (26-192); TROPONIN I 0.03 NG/ML (< 0.10)
[2020-11-12] VITALS: BP 114/63
[2020-11-12 02:00] VITALS: BP 114/63
[2020-11-12 06:00] VITALS: BP 126/66
[2020-11-12 06:52] LABS: BASO % 0.2 % (0.0-1.0); EOS # 0.1 10^3/uL (0.0-0.5); EOS % 1.1 % (0.0-3.0); HEMATOCRIT 38.9 % (36.0-47.0); HEMOGLOBIN 12.2 g/dl (12.0-15.5); LYMPH # 1.2 10^3/uL (1.5-5.0); LYMPH % 9.3 % (24.0-44.0); MEAN CORPUSCULAR HEMOGLOBIN 30.6 pg (27.0-33.0); MEAN CORPUSCULAR HGB CONC 31.4 g/dl (32.0-36.5); MEAN CORPUSCULAR VOLUME 97.5 fl (80.0-96.0); MONO # 0.9 10^3/uL (0.0-0.8); MONO % 7.3 % (2.0-8.0); NEUTROPHILS # 10.2 10^3/uL (1.5-8.5); NEUTROPHILS % 81.6 % (36.0-66.0); PLATELET COUNT, AUTOMATED 130 10^3/uL (150-450); RED BLOOD COUNT 3.99 10^6/uL (4.00-5.40); WHITE BLOOD COUNT 12.5 10^3/uL (4.0-10.0)
[2020-11-12 07:08] LABS: CALCIUM LEVEL 8.4 MG/DL (8.8-10.2); CREATININE FOR GFR 1.33 MG/DL (0.55-1.30); GLOMERULAR FILTRATION RATE 41.2 (>39); POTASSIUM SERUM 3.1 MEQ/L (3.5-5.1)
[2020-11-12] MEDS: TIOTROPIUM INHALER/CAPSULE (SPIRIVA) INH SCH (07:25)
[2020-11-12 07:45] VITALS: BP 123/67
[2020-11-12] MEDS: ALBUTEROL SULFATE 2.5 MG/0.5 ML INH NEB SOLN NEB PRN ×2 (08:16→11:03)
[2020-11-12] MEDS: diazePAM 5MG TABLET PO SCH (08:28)
[2020-11-12] MEDS: PERCOCET 5MG/325MG TAB PO PRN (08:29)
[2020-11-12 08:32] VITALS: BP 123/67
[2020-11-12] MEDS: METOPROLOL TART 25 MG TABLET PO SCH (08:32)
[2020-11-12] MEDS: APIXABAN 5 MG TAB (ELIQUIS) PO SCH (08:33)
[2020-11-12] MEDS: FUROSEMIDE 20 MG TAB PO SCH (08:33)
--- NOTE | 2020-11-12 09:24 | ECGEPIP ---
[facility] - ED Test Date: 2020-11-11 Pat Name: ANETA DE SANTIAGO Department: Room: - Gender: Female Casino Manager: KELLI : 1945 Requested By: SHAHEED Alvarado PA-C Order Number: [id number] Reading MD: Albina Dias Measurements Intervals [place] Rate: 107 P: LA: QRS: 92 QRSD: 76 T: -18 QT: 344 QTc: 459 Interpretive Statements Atrial fibrillation with rapid ventricular response with premature ventricular or aberrantly conducted complexes Rightward axis Septal infarct , age undetermined Electronically Signed on 11-12-2020 9:23:45 EST by Albina Dias
[2020-11-12] MEDS: POTASSIUM CHLORIDE 10 MEQ SR TABLET PO ONE ×2 (10:50→11:47)
[2020-11-12 14:00] VITALS: BP 102/54
--- NOTE | 2020-11-13 00:44 | ECGEPIP ---
[facility] Test Date: 2020-11-11 Pat Name: ANETA DE SANTIAGO Department: Room: [place] [address] Gender: Female Topography Technician: LUIS ANGEL : 1945 Requested By: MADY OLEA Order Number: [id number] Reading MD: Jon Perez Measurements Intervals [place] Rate: 96 P: NV: QRS: 96 QRSD: 72 T: -30 QT: 324 QTc: 409 Interpretive Statements Atrial fibrillation Rightward axis Septal infarct , age undetermined ST & T wave abnormality, consider inferior ischemia Compared to prior tracings (2) in the system, no significant changes Electronically Signed on 11-13-2020 0:43:43 EST by Jon Perez
--- NOTE | 2020-11-13 00:51 | ECGEPIP ---
[facility] Test Date: 2020-11-12 Pat Name: ANETA DE SANTIAGO Department: Room: [place] [address] Gender: Female Scientific Informatics Analyst: AMOL : 1945 Requested By: MADY OLEA Order Number: [id number] Reading MD: Jon Perez Measurements Intervals [place] Rate: 101 P: ID: QRS: 95 QRSD: 80 T: -42 QT: 338 QTc: 438 Interpretive Statements Atrial fibrillation with rapid ventricular response Rightward axis, borderline Nonspecific T wave abnormality Compared to prior tracings (3) in the system,no significant changes Electronically Signed on 11-13-2020 0:51:44 EST by Jon Perez
--- NOTE | 2020-11-15 23:26 | DS.PDOC ---
Discharge Summary General Date of Admission Nov 11, 2020 at 13:11 Date of Discharge 11/12/20 Discharge Summary PROCEDURES PERFORMED DURING STAY: [None]. DISCHARGE DIAGNOSES: Musculoskeletal Chest pain Vs Unwitnessed AFIB with RVR at home causing chest pain. Cervical spinal canal stenosis moderate and severe bilateral foraminal stenosis at C5-C6 and C6-C7 worse on left Rotator cuff tear of the Left shoulder. Hypokalemia SECONDARY DIAGNOSIS: Obesity, Untreated LEANNE, COPD/Emphysema, Chronic respiratory failure with hypoxia and hypercarbia, Mod pulmonary hypertension, Chronic Diastolic CHF Atrial fibrillation , mild mitral regurgitation, mild tricuspid regurgitation.probable, C5-6 mild central canal stenosis with DJD, 2 mm spondylolisthesis of C4 ,Generalized anxiety disorder, Vitamin D deficiency, Allergic rhinitis, Osteoarthritis (OA), Hypertension, Osteoporosis, tobacco abuse, chronic back pain, Vertigo, diverticulosis, right adrenal myolipoma. Bilateral Carpal tunnel surgery COMPLICATIONS/CHIEF COMPLAINT: Chest Pain Unstable Angina. HOSPITAL COURSE: 75 year old female with multiple medical comorbidities as above with recent hospitalization from 10/18 to 10/22 followed by Acute Rehab unit stay till 10/29/20 comes to the ED with sudden onset left upper chest and shoulder pain radiating back to the neck and down her arms which stated at around 3 am today. She reported that she was sleeping on her back and the pain woke her up. She said the pain was sharp constant in nature about 8/10 in intensity and worsening with breathing. She had 2 ekgs in the ED which showed Afib with controlled rate, 2 cardiac enzymes which were negative. Her pain improved after morphine and nitropatch but was still present. Her CT angio was negative for Pulmonary embolism or any vascular catastrophe. She is being admi tted for evaluation of chest pain rule out ACS. Chest pain, left shoulder pain and left arm pain also going to the back of neck 3 sets of cardiac enzymes are negative, 2 EKGs with no acute ischemic changes No acute coronary syndrome. Patient could have had Rapid ventricular response of her Afinb when she had the severe chest pain though in hospital and on presentation her heart rate has been controlled though she remains in chronic afib. More likely this is musculoskeletal chest pain MRI cervical spine does show mild to moderate central canal stenosis at different levels and also moderate to severe foraminal stenosis at Levels C3-T1 levels MRI left shoulder show rotator cuff tear This pain could be a radiculopathy However patient will need a stress test to further evaluate for any cardiac etiology of chest pain. She does not remember if she ever had a cardiac cath. will need referral to cardio as outpatient for work up of CAD in view of her risk factors. Afib chronic rate controlled continue betablocker and eliquis COPD with chronic hypoxic and hypercarbic respiratory failure no exacerbation at present continue inhalers and nebs Obesity/ Untreated LEANNE Mod pulmonary hypertension and chronic diastolic CHF EUVOLEMIC Valvular heart disease mild mitral regurgitation, mild tricuspid regurgitation Diastolic CHF chronic no acute exacerbation lasix Chronic generalized pain and bone pain/muscle spams on percocet and valium at home will continue DISCHARGE MEDICATIONS: Please see below. ALLERGIES: Please see below. PHYSICAL EXAMINATION ON DISCHARGE: VITAL SIGNS: Please see below. General Exam: Positive: Alert, Cooperative, No Acute Distress Eye Exam: Positive: PERRLA, Conjunctiva & lids normal, EOMI; Negative: Sclera icteric ENT Exam: Positive: Atraumatic, Mucous membr. moist/pink, Pharynx Normal Neck Exam: Positive: Supple; Negative: JVD, thyromegaly Chest Exam: Positive: Normal air movement, Rhonchi (few scattered ronchi) Heart Exam: Positive: Rate Normal, Irregular Rhythm, Normal S1, Normal S2; Negative: Murmurs, Rubs Telemetry: Positive: Atrial fibrillation Abdomen Exam: Positive: Normal bowel sounds, Soft, Tenderness (right upper quadrant), Other (obese) Extremity Exam: Negative: Clubbing, Cyanosis, Edema LABORATORY DATA: Please see below. IMAGING: Cervical spine MRI: Nonspecific straightening. Grade 1 anterolisthesis of C4 on C5 and C6 on C7. Vertebral body heights are preserved. Multilevel disc desiccation and disc space narrowing. No evidence of discitis/osteomyelitis. No abnormal cord signal or cord expansion. No epidural fluid collection. C2-C3: Mild disc osteophyte complex with bilateral facet joint arthropathy. No significant central or foraminal stenosis. C3-C4: Minimal disc osteophyte complex with uncinate spurring greater on the right. Bilateral facet joint arthropathy. No significant central canal stenosis. There is moderate right foraminal stenosis. C4-C5: Mild disc osteophyte complex with bilateral uncinate spurring and facet joint arthropathy. Mild central canal stenosis, moderate to severe right foraminal stenosis and moderate left foraminal stenosis. C5-C6: Vdnl-qm-mjhgulgt disc osteophyte complex with bilateral uncinate spurring and facet joint arthropathy. There is enol-kd-dhvvvfec central canal stenosis and moderate to severe bilateral foraminal stenosis. C6-C7: Mild disc osteophyte complex with bilateral uncinate spurring. Borderline central canal stenosis. Mild right and moderate to severe left foraminal stenosis. C7-T1: Mild disc osteophyte complex with bilateral uncinate spurring and facet joint arthropathy. Cogr-zw-vtnlooqg central canal stenosis. There is moderate bilateral foraminal stenosis. IMPRESSION: Degenerative findings as above including mild central canal stenosis at C4-C5, pkzv-ro-qhwieyyx central canal stenosis at C5-C6, borderline central canal stenosis at C6-C7 and vpyk-fq-zrwytlwn central canal stenosis at C7-T1. Left Shoulder MRI: IMPRESSION: 1. High-grade partial tearing of the supraspinatus tendon. A small amount of fluid is identified within the subdeltoid/subacromial bursa, and a full-thickness tear cannot be excluded. 2. Partial subscapularis tendon tears. 3. Labral tears. 4. Edema is identified adjacent to the coracoclavicular ligament, consistent with ligament sprain. 5. Acromioclavicular arthropathy is identified, with effacement of the underlying tissue planes. 6. Advanced glenohumeral arthropathy visualized. 7. Additional findings described above. ACTIVITY: [As tolerated]. DIET: As tolerated DISPOSITION: 01 Home, Self-Care. DISCHARGE INSTRUCTIONS: Follow up with PMD in 1 week ITEMS TO FOLLOWUP ON ON OUTPATIENT: Referral to cardiology for evaluation for CAD. DISCHARGE CONDITION: [Stable]. TIME SPENT ON DISCHARGE: 35 minutes. Vital Signs/I&Os Vital Signs Date Time Temp Pulse Resp B/P (MAP) Pulse Ox O2 Delivery O2 Flow Rate FiO2 11/12/20 14:00 97.5 92 20 102/54 (70) 93 Nasal Cannula 2.0 Laboratory Data CBC/BMP Item Value Date Time White Blood Count 12.5 10^3/uL H 11/12/20623 Red Blood Count 3.99 10^6/uL L 11/12/20623 Hemoglobin 12.2 g/dl 11/12/20623 Hematocrit 38.9 % 11/12/20623 Mean Corpuscular Volume 97.5 fl H 11/12/20623 Mean Corpuscular Hemoglobin 30.6 pg 11/12/20623 Mean Corpuscular Hemoglobin Concent 31.4 g/dl L 11/12/20623 Red Cell Distribution Width 14.1 % 11/12/20623 Platelet Count 130 10^3/uL L 11/12/20623 Immature Granulocyte % (Auto) 0.5 % 11/12/20623 Neutrophils (%) (Auto) 81.6 % H 11/12/20623 Lymphocytes (%) (Auto) 9.3 % L 11/12/20623 Monocytes (%) (Auto) 7.3 % 11/12/20623 Eosinophils (%) (Auto) 1.1 % 11/12/20623 Basophils (%) (Auto) 0.2 % 11/12/20623 Neutrophils # (Auto) 10.2 10^3/uL H 11/12/20623 Lymphocytes # (Auto) 1.2 10^3/uL L 11/12/20623 Monocytes # (Auto) 0.9 10^3/uL H 11/12/20623 Eosinophils # (Auto) 0.1 10^3/uL 11/12/20623 Basophils # (Auto) 0.0 10^3/uL 11/12/20623 Nucleated Red Blood Cells % (auto) 0.0 % 11/12/20623 Sodium Level 141 MEQ/L 11/12/20623 Potassium Level 3.1 MEQ/L L 11/12/20623 Chloride Level 99 MEQ/L 11/12/20623 Carbon Dioxide Level 36 MEQ/L H 11/12/20623 Anion Gap 6 MEQ/L L 11/12/20623 Blood Urea Nitrogen 34 MG/DL H 11/12/20623 Creatinine 1.33 MG/DL H 11/12/20623 Glomerular Filtration Rate 41.2 11/12/20623 Fasting Glucose 101 MG/DL H 11/12/20623 Calcium Level 8.4 MG/DL L 11/12/20623 Total Creatine Kinase 25 U/L L 11/11/20925 Creatine Kinase MB 1.1 NG/ML 11/11/20925 Creatine Kinase MB Relative Index 4.40 H 2/24/21 0926 Troponin I 0.02 NG/ML 11/11/20 0926 Total Creatine Kinase 17 U/L L 11/11/20 1534 Creatine Kinase MB < 1.0 NG/ML 11/11/20 1534 Creatine Kinase MB Relative Index 5.88 H 11/11/20 1534 Troponin I 0.02 NG/ML 11/11/20 1534 Total Creatine Kinase 20 U/L L 11/11/20 2205 Creatine Kinase MB < 1.0 NG/ML 11/11/205 Creatine Kinase MB Relative Index 5.00 H 11/11/20 2205 Troponin I 0.03 NG/ML # 11/11/205 OZ-Axb-[id number]-Type Natriuretic Peptide 1148 PG/ML H 11/11/20 0554 Microbiology Microbiology 11/11/20 Respiratory Virus Panel (PCR) (TONG) - Final, Complete Discharge Medications Scheduled Apixaban (Eliquis) 5 Mg Tablet, 5 MG PO BID, (Reported) Ascorbic Acid (Ascorbic Acid) 500 Mg Tablet, 500 MG PO DAILY, (Reported) TAKES MID-AFTERNOON Cholecalciferol (Vitamin D3) (Vitamin D3) 1,000 Unit Tablet, 2,000 UNITS PO ARTURO Y, (Reported) TAKES MID-AFTERNOON Diazepam (Valium) 5 Mg Tab, 5 MG PO TID, (Reported) Furosemide (Furosemide) 20 Mg Tablet, 20 MG PO DAILY, (Reported) Hydrochlorothiazide (Hydrochlorothiazide) 25 Mg Tablet, 25 MG PO DAILY, (Reported) Magnesium Oxide (Magnesium) 400 Mg Capsule, 400 MG PO DAILY, (Reported) Metoprolol Tartrate (Metoprolol Tartrate) 25 Mg Tablet, 25 MG PO BID, (Reported) Potassium Chloride (Potassium Chloride) 10 Meq Tab.er.prt, 10 MEQ PO DAILY, (Reported) Tiotropium [place] (Spiriva) 18 Mcg Cap.w.dev, 18 MCG INH DAILY, (Reported) Vitamin E (Vitamin E) 400 Unit Capsule, 400 UNIT PO DAILY, (Reported) TAKES MID-AFTERNOON Scheduled PRN Albuterol Sulf (Albuterol Sulfate) 2.5 Mg/3 Ml Nebu, 1 VIAL NEB Q4H PRN for SOB/WHEEZING, (Reported) Albuterol Sulfate (Proair Hfa) 108 Mcg/Act Aer, 2 PUFF INH QID PRN for SHORTNESS OF BREATH Oxycodone HCl/Acetaminophen (Percocet 7.5-325 mg Tablet) 1 Each Tablet, 1 TAB PO TID PRN for PAIN, (Reported) Allergies Coded Allergies: adhesive tape (Verified Allergy, Intermediate, RASH, 12/20/18) latex (Verified Allergy, Intermediate, RASH, 12/20/18) azithromycin (Unverified Allergy, Unknown, Unknown, 10/22/20) Listed under diet MADY OLEA MD Nov 15, 2020 23:26
== END 2020-11-12 15:45 | disposition home or self-care (01) | DRG 313 ==
LOC: M ED 05:27 → M ED INP 13:11 → M MSPAV 16:09
PROVIDERS: ADMIT Internal Medicine Nephrology; ATTEND Internal Medicine Nephrology
DX: R07.89 Other chest pain (principal); J96.11 Chronic respiratory failure with hypoxia; J96.12 Chronic respiratory failure with hypercapnia; I50.32 Chronic diastolic (congestive) heart failure; I48.20 Chronic atrial fibrillation, unspecified; M25.512 Pain in left shoulder; M47.22 Other spondylosis with radiculopathy, cervical region; E66.9 Obesity, unspecified; G47.33 Obstructive sleep apnea (adult) (pediatric); J43.9 Emphysema, unspecified; I27.20 Pulmonary hypertension, unspecified; M75.112 Incomplete rotator cuff tear or rupture of left shoulder, not specified as traumatic; I08.1 Rheumatic disorders of both mitral and tricuspid valves; F41.1 Generalized anxiety disorder; E55.9 Vitamin D deficiency, unspecified; E87.6 Hypokalemia; J30.9 Allergic rhinitis, unspecified; M19.90 Unspecified osteoarthritis, unspecified site; I11.0 Hypertensive heart disease with heart failure; M81.0 Age-related osteoporosis without current pathological fracture; F17.200 Nicotine dependence, unspecified, uncomplicated; Z90.49 Acquired absence of other specified parts of digestive tract; Z87.81 Personal history of (healed) traumatic fracture; Z88.1 Allergy status to other antibiotic agents; Z91.040 Latex allergy status; Z91.048 Other nonmedicinal substance allergy status; Z68.39 Body mass index [BMI] 39.0-39.9, adult

== ENCOUNTER 2021-01-13 14:37 | Inpatient (IN) | payer MEDICARE, OTHER ==
[~2021-01-13] VITALS: Ht 147.3 cm; Wt 84.0 kg
[~2021-01-13 14:37] MED LIST changes: +METO25TA4 PO
[2021-01-13 15:45] LABS: BASO % 0.3 % (0.0-1.0); EOS % 0.1 % (0.0-3.0); HEMATOCRIT 43.9 % (36.0-47.0); HEMOGLOBIN 13.5 g/dl (12.0-15.5); LYMPH # 0.7 10^3/uL (1.5-5.0); LYMPH % 4.5 % (24.0-44.0); MEAN CORPUSCULAR HEMOGLOBIN 30.8 pg (27.0-33.0); MEAN CORPUSCULAR HGB CONC 30.8 g/dl (32.0-36.5); MONO # 1.1 10^3/uL (0.0-0.8); MONO % 7.4 % (2.0-8.0); NEUTROPHILS # 12.7 10^3/uL (1.5-8.5); NEUTROPHILS % 87.4 % (36.0-66.0); PLATELET COUNT, AUTOMATED 269 10^3/uL (150-450); RED BLOOD COUNT 4.39 10^6/uL (4.00-5.40); WHITE BLOOD COUNT 14.6 10^3/uL (4.0-10.0)
--- NOTE | 2021-01-13 15:50 | REP ---
INDICATION: fall. COMPARISON: July 19, 2020.. TECHNIQUE: Helical scanning is acquired. 5 mm axial images were reformatted. Coronal MPR images were generated. FINDINGS: Bone window settings demonstrate an intact bony calvarium. There is no evidence of skull fracture or incidental bony calvarial lesion. The visualized paranasal sinuses appear clear. No intraorbital abnormality is seen. On soft tissue window setting images; the lateral, third, and fourth ventricles are normal in size and position. Jeffries-white differentiation pattern is normal above and below the tentorium. There are is no evidence of intracranial hemorrhage. No mass, edema, infarction, or midline shift is seen. No extra-axial fluid collection is appreciated. Vascular calcification is again noted fairly heavily involving the distal internal carotid arteries. There is mild generalized volume loss. Minimal small vessel changes. Findings unchanged from the 19 July 2020 prior study. IMPRESSION: No acute intracranial abnormality. Minimal volume loss and vascular calcification again noted. No skull fracture or intracranial injury seen.. <Electronically signed by Darion Rodarte > 01/13/21 [id number]
--- NOTE | 2021-01-13 15:54 | REP ---
INDICATION: fall. COMPARISON: Comparison CT study of the cervical spine is from 19 July 2020.. TECHNIQUE: Helical scanning is acquired and overlapping 2 mm high resolution axial images were generated and reviewed at bone and soft tissue window settings. Coronal and sagittal multiplanar re-formations images are generated. FINDINGS: There is no evidence of cervical spine element fracture. No skull base fracture is seen. Cervical vertebral body heights are preserved. Alignment is normal. Facet joints are normally aligned bilaterally at each cervical level on multiplanar re-formations images. There is no evidence of intraspinal or paraspinal hematoma. No extra vertebral abnormality is seen. Degenerative disc disease is noted at C4-5, C5-6, and C6-7 unchanged from the comparison study. There are stable degenerative 2 mm spondylolisthesis ease noted at C4-C5 and at C7-T1. These are unchanged from the comparison study. Posterior osteophytic ridging is seen at C5-6 and C6-7. Osteoarthritic facet hypertrophy is noted bilaterally in the mid cervical spine as before. There is a left pleural effusion extending up to the apex of the left lung visible incidentally. This is a new finding. IMPRESSION: Advanced degenerative spondylosis changes with stable degenerative C4-5 and C7-T1 anterior subluxations. No traumatic bony abnormality. Left pleural effusion noted incidentally as a new finding.. <Electronically signed by Darion Rodarte > 01/13/21 [id number]
--- NOTE | 2021-01-13 16:26 | REP ---
INDICATION: effusion/fall. COMPARISON: Comparison chest CT study 11 November 2020.. TECHNIQUE: Helical scanning is acquired. 3 mm axial images are generated. Coronal and sagittal MPR and coronal MIP images are generated. 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 Axial CT images confirm the presence of small to moderate left pleural effusion layering in the posterior aspect of the left hemithorax. There is partial collapse and air bronchograms are seen in the lingular segment of the left upper lobe. There are atelectatic changes with air bronchograms in the left lower lobe as well. No endobronchial disease is seen. No pulmonary parenchymal mass lesion is observed. There is also a small pericardial effusion which is a new finding. No hilar or mediastinal mass or adenopathy is seen. There is a 1.4 cm irregular mass in the left breast soft tissues. No axillary, internal mammary, or supraclavicular adenopathy is seen. There is a 7 mm noncalcified pulmonary nodule in the right upper lobe projecting on page 34 of 100 and series 204 of today's study. This is unchanged from the November 11, 2020 study no other pulmonary nodule is appreciated.0 there is a benign hemangioma in 1 of the lower thoracic vertebral bodies. No bony destructive lesion is appreciated. No rib or other fracture seen. IMPRESSION: Small to moderate left pleural effusion with atelectatic changes in the lingula and left lower lobe. Small pericardial effusion. These are new findings. 7 mm nodule in the right upper lobe of the lung unchanged from November 11, 2020. Not present in 2011.. 14 mm left breast mass. Further evaluation suggested to include diagnostic mammography and sonography of the left breast. <Electronically signed by Darion Rodarte > 01/13/21 [id number]
--- NOTE | 2021-01-13 16:31 | REP ---
INDICATION: effusion/fall COMPARISON: Comparison CT studies are from November 11, 2020, October 29, 2018, and May 16, 2016.. TECHNIQUE: Helical scanning is acquired in 4 mm axial images were reformatted. Coronal and sagittal MPR images were generated and reviewed. FINDINGS: Digital preliminary property underwriter radiograph shows left pleural effusion and cardiomegaly. Bowel gas pattern is unremarkable. On axial CT images left pleural effusion and pericardial effusion are evident. Left adrenal gland is normal. There is a essentially stable fat containing right adrenal myelolipoma 6.5 cm in greatest diameter again noted. This measured 5.9 cm in 2016. No renal lesion is seen on either side. There is some vascular calcification. There are large is benign and stable calcifications in the right lobe of the liver consistent with granulomas. No liver mass lesion is seen. No abnormality is noted in the gallbladder or the pancreas. Small and large bowel loops are unremarkable in the upper abdomen. Pelvic CT images demonstrate no uterine or urinary bladder abnormality. The rectum is somewhat distended with formed stool consistent with constipation. No free air or free fluid. No abdominal wall defect seen. Bone window settings show degenerative spondylosis changes in the lumbar spine. No fracture is seen. IMPRESSION: No acute abdominal or pelvic abnormality. stable findings in the liver right adrenal gland. New left pleural effusion and pericardial effusion. Left colonic diverticulosis without CT evidence of diverticulitis. <Electronically signed by Darion Rodarte > 01/13/21 [id number]
[2021-01-13 16:35] LABS: ALBUMIN 2.9 GM/DL (3.2-5.2); ALT/SGPT 9 U/L (12-78); BLOOD UREA NITROGEN 30 MG/DL (7-18); CALCIUM LEVEL 9.3 MG/DL (8.8-10.2); CARBON DIOXIDE LEVEL 50 MEQ/L (21-32); CHLORIDE LEVEL 93 MEQ/L (98-107); CREATININE FOR GFR 0.91 MG/DL (0.55-1.30); GLOMERULAR FILTRATION RATE > 60.0 (>39); GLUCOSE, FASTING 113 MG/DL (70-100); POTASSIUM SERUM 3.9 MEQ/L (3.5-5.1); SODIUM LEVEL 140 MEQ/L (136-145); TOTAL PROTEIN 6.3 GM/DL (6.4-8.2)
--- NOTE | 2021-01-13 17:01 | REP ---
INDICATION: pain/fall. COMPARISON: Comparison chest x-ray November 11, 2020.. TECHNIQUE: Four views including supine views of the chest in abdomen and a cross-table lateral view of the abdomen. FINDINGS: AP chest x-ray shows left pleural effusion. Cardiomegaly. Mitral annular calcification. Supine and cross-table lateral views of the abdomen show no evidence of free intraperitoneal air. Bowel gas pattern is unremarkable. Vascular calcification is noted. No fracture or acute bony abnormality is seen. IMPRESSION: No evidence of obstruction or free intraperitoneal air. No acute bony abnormality is seen.. <Electronically signed by Darion Rodarte > 01/13/21 0143
--- NOTE | 2021-01-13 17:02 | REP ---
INDICATION: pain/fall. COMPARISON: None. TECHNIQUE: AP view pelvis, AP and frogleg views left hip. FINDINGS: There is no evidence of acute fracture, dislocation or intrinsic bone disease. There is mild narrowing and sclerosis at the sacroiliac joints bilaterally. There are also mild degenerative changes of both hip joints. IMPRESSION: No acute fracture or dislocation. Mild degenerative changes. <Electronically signed by Stepan Jeffries > 01/13/21 [id number]
--- NOTE | 2021-01-13 17:03 | REP ---
INDICATION: pain/fall. COMPARISON: None. TECHNIQUE: Four views of the left knee are provided. No sunrise view. FINDINGS: Four views of the left knee demonstrate diffuse soft tissue swelling. There is mild osteoarthritic spurring at the medial and lateral compartments. There is diffuse osteopenia. Patellar spurring is noted. The lateral view is underexposed. A lateral view obtained as part of the same day series of the femur shows patellar spurring.. No fracture or subluxation is seen. No opaque foreign body noted. IMPRESSION: Diffuse osteopenia and osteoarthritis. Soft tissue swelling. No fracture seen.. <Electronically signed by Darion Rodarte > 01/13/21 1018
--- NOTE | 2021-01-13 17:03 | REP ---
INDICATION: pain/fall COMPARISON: None. TECHNIQUE: AP and lateral left femur. FINDINGS: There is no evidence of acute fracture, dislocation, or intrinsic bone disease.There is mild superior patellar spurring. IMPRESSION: No fracture or dislocation. <Electronically signed by Stepan Jeffries > 01/13/21 0102
[2021-01-13 17:04] LABS: RSV AMPLIFICATION NEGATIVE (NEGATIVE)
[2021-01-13 18:01] LABS: NT-PRO BNP 3868 PG/ML (<450)
[2021-01-13] MEDS ORDERED: MAALOX 30 ML SUSP *UDC PO PRN (19:10)
[2021-01-13] MEDS ORDERED: FUROSEMIDE 40MG/4ML VIAL (J1940) IV SCH ×2 (19:10→20:00)
[2021-01-13] MEDS ORDERED: DEXTROSE 50% 50 ML SYRINGE IV PRN (19:10)
[2021-01-13] MEDS ORDERED: GLUCOSE 4GM CHEW TABLET PO PRN (19:10)
[2021-01-13] MEDS ORDERED: GLUCAGON INJ 1MG VIAL SC PRN (19:10)
--- NOTE | 2021-01-13 19:24 | HPEPDOC ---
[facility] Medical History & Physical Date of Admission Jan 13, 2021 Date of Service: Jan 13, 2021 Attending Physician: JEANIE PEREZ MD History and Physical CHIEF COMPLAINT: [75 year old female presents to the ED after a fall.] HISTORY OF PRESENT ILLNESS: [This is a 75 year old female with a pmh of a-fib, copd, pulmonary htn, leanne, chronic hypoxemia on 2L at home O2 at baseline, DM2 and chronic back pain who presents to the ED after suffering a fall. Patient states that she was recently started on percocet for her back pain approx 4 days ago. She states that the med has helped her pain but has made her constipated so she has been rushing to the bathroom at times to try to move her bowels. Patient states that she was in a [place] to get to the bathroom today and ran into the door frame and fell onto her left side. Patient denies pre-fall dizziness, patient did not pass out, patient did not strike her head. Denies post fall grogginess. Patient is having abdominal pain in her LLQ and RLQ she believes is due to her constipation. She admits to associated nausea. Patient denies vomiting, bloody stools, fever, chills. Patient states that over the past few days as well she has noted increased sob and activity intolerance. Patient states that she has been sleeping on the couch propped up on multiple pillows in order to sleep. Patient denies chest pain, palpitations, cough, calf pain.] PAST MEDICAL HISTORY: 1. [See HPI PAST SURGICAL HISTORY: 1. [B/L carpal tunnel repair]. 2. [Appendectomy]. 3. [Umbilical hernia repair 4. Left ankle orif]. SOCIAL HISTORY: Marital status: []. Resides in: [Home with ] Tobacco use:[former smoker] ETOH: [denies] Illicit drug use: [denies] FAMILY HISTORY: reviewed with pt - none ALLERGIES: Please see below. REVIEW OF SYSTEMS: CONSTITUTIONAL: [See HPI]. HEENT: [Denies uri sx]. CARDIOVASCULAR: [See HPI]. RESPIRATORY: [See HPI]. GASTROINTESTINAL: [See HPI]. GENITOURINARY: [Denies dysuria]. SKIN: [Denies rash]. MUSCULOSKELETAL: [Admits to acute pain in the left knee, back]. NEUROLOGICAL: [Denies paresthesias]. ENDOCRINE: [Hx of DM]. HEMATOLOGIC/LYMPHATIC: [Denies easy bruising]. HOME MEDICATIONS: Please see below. PHYSICAL EXAMINATION: VITAL SIGNS: Please see below GENERAL APPEARANCE: [This is an obese 75 year old female. She is laying in bed and appears very uncomfortable.]. HEENT: [No mass or lesion. EOMI. No scleral icterus or conjunctival erythema. Nares patent. oral mucosa moist]. CARDIOVASCULAR: [Tachy rate, irregularly irregular rhythm]. LUNGS: [Diminished breath sounds throughout. Crackles heard at b/l bases.]. ABDOMEN: [Obese. Tender in LLQ.]. MUSCULOSKELETAL: [No joint deformity noted]. EXTREMITIES: [Lower extremities grossly edematous pretibially. No overlying skin changes. Pulses intact.]. NEUROLOGICAL: [Sensation intact. Speech clear. A+Ox3. No focal deficits]. PSYCHIATRIC: [Mood and affect appear appropriate]. LABORATORY DATA: See below. IMAGING: [Abd X-ray: FINDINGS: AP chest x-ray shows left pleural effusion. Cardiomegaly. Mitral annular calcification. Supine and cross-table lateral views of the abdomen show no evidence of free intraperitoneal air. Bowel gas pattern is unremarkable. Vascular calcification is noted. No fracture or acute bony abnormality is seen. IMPRESSION: No evidence of obstruction or free intraperitoneal air. No acute bony abnormality is seen.. Cervical Spine CT: FINDINGS: There is no evidence of cervical spine element fracture. No skull base fracture is seen. Cervical vertebral body heights are preserved. Alignment is normal. Facet joints are normally aligned bilaterally at each cervical level on multiplanar re-formations images. There is no evidence of intraspinal or paraspinal hematoma. No extra vertebral abnormality is seen. Degenerative disc disease is noted at C4-5, C5-6, and C6-7 unchanged from the comparison study. There are stable degenerative 2 mm spondylolisthesis ease noted at C4-C5 and at C7-T1. These are unchanged from the comparison study. Posterior osteophytic ridging is seen at C5-6 and C6-7. Osteoarthritic facet hypertrophy is noted bilaterally in the mid cervical spine as before. There is a left pleural effusion extending up to the apex of the left lung visible incidentally. This is a new finding. IMPRESSION: Advanced degenerative spondylosis changes with stable degenerative C4-5 and C7- T1 anterior subluxations. No traumatic bony abnormality. Left pleural effusion no angela incidentally as a new finding.. Left Femur x-ray: FINDINGS: There is no evidence of acute fracture, dislocation, or intrinsic bone disease.There is mild superior patellar spurring. IMPRESSION: No fracture or dislocation. CT Head: FINDINGS: Bone window settings demonstrate an intact bony calvarium. There is no evidence of skull fracture or incidental bony calvarial lesion. The visualized paranasal sinuses appear clear. No intraorbital abnormality is seen. On soft tissue window setting images; the lateral, third, and fourth ventricles are normal in size and position. Jeffries-white differentiation pattern is normal above and below the tentorium. There are is no evidence of intracranial hemorrhage. No mass, edema, infarction, or midline shift is seen. No extra-axial fluid collection is appreciated. Vascular calcification is again noted fairly heavily involving the distal internal carotid arteries. There is mild generalized volume loss. Minimal small vessel changes. Findings unchanged from the 19 July 2020 prior study. IMPRESSION: No acute intracranial abnormality. Minimal volume loss and vascular calcification again noted. No skull fracture or intracranial injury seen.. Hip/Pelvis x-ray: FINDINGS: There is no evidence of acute fracture, dislocation or intrinsic bone disease. There is mild narrowing and sclerosis at the sacroiliac joints bilaterally. There are also mild degenerative changes of both hip joints. IMPRESSION: No acute fracture or dislocation. Mild degenerative changes. L Knee x-ray: FINDINGS: Four views of the left knee demonstrate diffuse soft tissue swelling. There is mild osteoarthritic spurring at the medial and lateral compartments. There is diffuse osteopenia. Patellar spurring is noted. The lateral view is underexposed. A lateral view obtained as part of the same day series of the femur shows patellar spurring.. No fracture or subluxation is seen. No opaque foreign body noted. IMPRESSION: Diffuse osteopenia and osteoarthritis. Soft tissue swelling. No fracture seen.. Abd/pelvis CT: FINDINGS: Digital preliminary mileage clerk radiograph shows left pleural effusion and cardiomegaly. Bowel gas pattern is unremarkable. On axial CT images left pleural effusion and pericardial effusion are evident. Left adrenal gland is normal. There is a essentially stable fat containing right adrenal myelolipoma 6.5 cm in greatest diameter again noted. This measured 5.9 cm in 2016. No renal lesion is seen on either side. There is some vascular calcification. There are large is benign and stable calcifications in the right lobe of the liver consistent with granulomas. No liver mass lesion is seen. No abnormality is noted in the gallbladder or the pancreas. Small and large bowel loops are unremarkable in the upper abdomen. Pelvic CT images demonstrate no uterine or urinary bladder abnormality. The rectum is somewhat distended with formed stool consistent with constipation. No free air or free fluid. No abdominal wall defect seen. Bone window settings show degenerative spondylosis changes in the lumbar spine. No fracture is seen. IMPRESSION: No acute abdominal or pelvic abnormality. stable findings in the liver right adrenal gland. New left pleural effusion and pericardial effusion. Left colonic diverticulosis without CT evidence of diverticulitis. Chest CT: FINDINGS: Preliminary digital mileage clerk radiograph demonstrates evidence of left pleural effusion. Axial CT images confirm the presence of small to moderate left pleural effusion layering in the posterior aspect of the left hemithorax. There is partial collapse and air bronchograms are seen in the lingular segment of the left upper lobe. There are atelectatic changes with air bronchograms in the left lower lobe as well. No endobronchial disease is seen. No pulmonary parenchymal mass lesion is observed. There is also a small pericardial effusion which is a new finding. No hilar or mediastinal mass or adenopathy is seen. There is a 1.4 cm irregular mass in the left breast soft tissues. No axillary, internal mammary, or supraclavicular adenopathy is seen. There is a 7 mm noncalcified pulmonary nodule in the right upper lobe projecting on page 34 of 100 and series 204 of today's study. This is unchanged from the November 11, 2020 study no other pulmonary nodule is appreciated.0 there is a benign hemangioma in 1 of the lower thoracic vertebral bodies. No bony destructive lesion is appreciated. No rib or other fracture seen. IMPRESSION: Small to moderate left pleural effusion with atelectatic changes in the lingula and left lower lobe. Small pericardial effusion. These are new findings. 7 mm nodule in the right upper lobe of the lung unchanged from November 11, 2020. Not present in 2011.. 14 mm left breast mass. Further evaluation suggested to include diagnostic mammography and sonography of the left breast.] MICROBIOLOGY: Please see below. ASSESSMENT: [This is a 75 y/o female with a pmh of a-fib, copd, pulmonary htn, leanne, chronic hypoxemia on 2L at home O2 at baseline, DM2 and chronic back pain who presents to the ED after suffering what seems to be a mechanical fall. On exam, patient was found to be obviously fluid overloaded. Imaging shows no acute fractures from the fall, but rather a left sided pleural effusion and a small pericardial effusion. Lab work was notable for a metabolic alkalosis and a BNP of 3868. ]. . PLAN: 1. [Fluid overload - Most likely CHF, patient is unsure if she has ever been diagnosed with this in the past - Fluid overload likely contributing to patients fatigue and sob at home, which made her more privy to a fall - Will begin iv lasix 40mg q8h - Will continue supplemental o2 titrated to 88-92% - ECHO ordered - Will trend BNP - Admit to pcu on tele 2. A-fib with RVR - RVR potentially initiated by trauma of fall - Rates in the ED typically ran in the 100s - Cardiac marker panel ordered - Patient on eliquis, will continue - Will increase patient's metoprolol from 25mg bid to 50mg bid - Will monitor rate. - On tele, as stated 3. Metabolic Alkalosis - Potentially mixed picture from fluid overload, constipation, hydrochlorothiazide - Will hold HCTZ for now - Repeat ABG tomorrow 4. Constipation - No radiographic evidence of ileus or SBO - Patient had BM in the ED - Will place patient on bowel regimen [facility] [employer]col[facility]de[facility] 5. COPD - will hold albuterol for now d/t tachycardia - Will continue spiriva - continue at home oxygen, as stated - begin duonebs q6h, prednisone 40mg po daily 6. LEANNE - does not wear cpap, will monitor pulse ox 7. DM - sliding scale insulin, hypoglycemic protocol 8. chronic pain - continue at home oxycodone 9. Anxiety - continue valium 10. Breast mass - 1.4cm irregular mass noted in left breast incidentally on imaging. Patient should f/u outpatient with PCP for breast US or mammogram 11. Pulmonary module - 7 mm noncalcified module noted in right upper lobe incidentally on imaging, unchanged from prior chest imaging in october 2020. Patient should f/u outpatient with PCP 12. DVT prophylaxis - pt on eliquis]. Vital Signs Vital Signs Date Time Temp Pulse Resp B/P (MAP) Pulse Ox O2 Delivery O2 Flow Rate FiO2 01/13/21 15:07 98.0 103 18 134/74 99 Nasal Cannula 2.0 Laboratory Data Labs 24H Laboratory Tests 2 01/13/21 15:16: Immature Granulocyte % (Auto) 0.3, Neutrophils (%) (Auto) 87.4H, Lymphocytes (%) (Auto) 4.5L, Monocytes (%) (Auto) 7.4, Eosinophils (%) (Auto) 0.1, Basophils (%) (Auto) 0.3, Neutrophils # (Auto) 12.7H, Lymphocytes # (Auto) 0.7L, Monocytes # (Auto) 1.1H, Eosinophils # (Auto) 0.0, Basophils # (Auto) 0.0, Nucleated Red Blood Cells % (auto) 0.0, Anion Gap , Glomerular Filtration Rate > 60.0, Calcium Level 9.3, Total Bilirubin 1.0, Aspartate Amino Transf (AST/SGOT) 18, Alanine Aminotransferase (ALT/SGPT) 9L, Alkaline Phosphatase 80, BM-Vso-T-Type Natriuretic Peptide 3868H, Total Protein 6.3L, Albumin 2.9L, Albumin/Globulin Ratio 0.9L 01/13/21 16:20: Coronavirus (COVID-19)(PCR) NEGATIVE, Influenza Type A (RT-PCR) NEGATIVE, Influenza Type B (RT-PCR) NEGATIVE, Respiratory Syncytial Virus (PCR) NEGATIVE 01/13/21 17:56: POC pH (Misc Panel) 7.503H, POC Base Excess (Misc Panel) 24.0H, POC Saturated Percent O2 (Misc) 94L, POC pO2 (Misc Panel) 66.0L, POC pCO2 (Misc Panel) 60.0H, POC HCO3 (Misc Panel) 47.1H, POC Total CO2 (Misc Panel) 49.0H CBC/BMP Laboratory Tests 01/13/21 15:16 Home Medications Scheduled Apixaban (Eliquis) 5 Mg Tablet, 5 MG PO BID Ascorbic Acid (Ascorbic Acid) 500 Mg Tablet, 500 MG PO DAILY Cholecalciferol (Vitamin D3) (Vitamin D3) 1,000 Unit Tablet, 1,000 UNITS PO DAILY Diazepam (Valium) 5 Mg Tab, 5 MG PO TID Furosemide (Furosemide) 20 Mg Tablet, 20 MG PO DAILY Hydrochlorothiazide (Hydrochlorothiazide) 25 Mg Tablet, 25 MG PO DAILY Magnesium Oxide (Magnesium) 400 Mg Capsule, 400 MG PO DAILY Metoprolol Tartrate (Metoprolol Tartrate) 25 Mg Tablet, 25 MG PO BID Potassium Chloride (Potassium Chloride) 10 Meq Tab.er.prt, 10 MEQ PO DAILY Tiotropium [place] (Spiriva) 18 Mcg Cap.w.dev, 18 MCG INH DAILY Vitamin E (Vitamin E) 400 Unit Capsule, 400 UNIT PO DAILY Scheduled PRN Albuterol Sulf (Albuterol Sulfate) 2.5 Mg/3 Ml Nebu, 1 VIAL NEB Q2H PRN for SOB/WHEEZING Albuterol Sulfate (Proair Hfa) 8.5 Gm Hfa.aer.ad, 2 PUFF INH QID PRN for SHORTNESS OF BREATH Oxycodone HCl/Acetaminophen (Percocet 7.5-325 mg Tablet) 1 Each Tablet, 1 TAB PO TID PRN for PAIN Allergies Coded Allergies: adhesive tape (Verified Allergy, Mild, RASH, 01/13/21) latex (Verified Allergy, Mild, RASH, 01/13/21) azithromycin (Unverified Adverse Reaction, Mild, GI, 01/13/21) Listed under diet A-FIB/CHADSVASC A-FIB History Current/History of A-Fib/PAF?: Yes Current PO Anticoag Therapy: Yes JOSE MORENO Jan 13, 2021 19:24
[2021-01-13] MEDS ORDERED: PROAAER10 INH (20:08)
[2021-01-13 20:19] LABS: CK-MB VALUE MASS < 1.0 NG/ML (<3.6); CPK CREATINE PHOSPHOKINASE 41 U/L (26-192); MB/CK RELATIVE INDEX 2.44 (< OR =4); TROPONIN I 0.05 NG/ML (< 0.10)
[2021-01-13 21:00] VITALS: BP_SYST 110; BP_SYST 127; BP_DIAS 58; BP_DIAS 82; O2SAT 95
[2021-01-13] MEDS: HumaLOG INSULIN (NovoLOG) PER UNIT SC SCH (21:00)
[2021-01-13] MEDS ORDERED: PILL CUTTER 1 EACH XX PRN (21:20)
[2021-01-13] MEDS: METOPROLOL TART 50 MG TAB PO SCH (21:51)
[2021-01-13] MEDS: oxyCODONE 5MG TAB PO PRN (21:53)
[2021-01-13] MEDS: DOCUSATE SODIUM 100MG CAPSULE PO SCH (21:53)
[2021-01-13 22:58] LABS: PROTHROMBIN TIME 23.1 SECONDS (12.5-14.3)
[2021-01-13 22:59] LABS: PARTIAL THROMBOPLASTIN TIME 45.2 SECONDS (24.2-38.5)
--- NOTE | 2021-01-13 23:23 | ECGEPIP ---
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
[2021-01-13] MEDS: APIXABAN 5 MG TAB (ELIQUIS) PO SCH (23:38)
[2021-01-14] VITALS (11 sets, daily range): BP systolic 96–124; BP diastolic 58–81; O2SAT 88–100
--- NOTE | 2021-01-14 02:26 | REPVR ---
PROCEDURE INFORMATION: Exam: US Duplex Lower Extremity Veins, Bilateral Exam date and time: 01/14/2021 1:52 AM Age: 75 years old Clinical indication: Edema, localized; Lower extremity, bilateral TECHNIQUE: Imaging protocol: Real-time duplex ultrasound of the extremities with 2-D brown scale, color Doppler flow and spectral waveform analysis with image documentation. Complete exam focused on the bilateral lower extremity veins. COMPARISON: No relevant prior studies available. FINDINGS: Right deep veins: Unremarkable. The common femoral, femoral, proximal profunda femoral and popliteal veins are patent without thrombus. Normal Doppler waveforms. Normal compressibility and/or augmentation response. Right superficial veins: Saphenofemoral junction is patent without thrombus. Left deep veins: Unremarkable. The common femoral, femoral, proximal profunda femoral and popliteal veins are patent without thrombus. Normal Doppler waveforms. Normal compressibility and/or augmentation response. Left superficial veins: Saphenofemoral junction is patent without thrombus. Soft tissues: Unremarkable. IMPRESSION: Negative bilateral lower extremity venous duplex exam without evidence of deep venous thrombosis. Electronically signed by: Vlad Hyatt On 01/14/2021 02:26:07 AM
[2021-01-14 05:49] LABS: HEMATOCRIT 41.7 % (36.0-47.0); HEMOGLOBIN 12.6 g/dl (12.0-15.5); MEAN CORPUSCULAR HEMOGLOBIN 30.4 pg (27.0-33.0); MEAN CORPUSCULAR HGB CONC 30.2 g/dl (32.0-36.5); MEAN CORPUSCULAR VOLUME 100.7 fl (80.0-96.0); PLATELET COUNT, AUTOMATED 258 10^3/uL (150-450); RED BLOOD COUNT 4.14 10^6/uL (4.00-5.40); WHITE BLOOD COUNT 15.4 10^3/uL (4.0-10.0)
[2021-01-14 05:59] LABS: INR 2.13; PROTHROMBIN TIME 24.3 SECONDS (12.5-14.3)
[2021-01-14] MEDS ORDERED: FUROSEMIDE 40MG/4ML VIAL (J1940) IV SCH ×2 (06:00→12:00)
[2021-01-14 06:25] LABS: BLOOD UREA NITROGEN 28 MG/DL (7-18); CALCIUM LEVEL 8.9 MG/DL (8.8-10.2); CARBON DIOXIDE LEVEL 51 MEQ/L (21-32); CHLORIDE LEVEL 92 MEQ/L (98-107); CREATININE FOR GFR 1.07 MG/DL (0.55-1.30); GLOMERULAR FILTRATION RATE 52.9 (>39); GLUCOSE, FASTING 105 MG/DL (70-100); MAGNESIUM LEVEL 1.5 MG/DL (1.8-2.4); NT-PRO BNP 4450 PG/ML (<450); POTASSIUM SERUM 3.2 MEQ/L (3.5-5.1); SODIUM LEVEL 142 MEQ/L (136-145)
[2021-01-14] MEDS: HumaLOG INSULIN (NovoLOG) PER UNIT SC SCH ×4 (07:30→21:00)
[2021-01-14] MEDS: TIOTROPIUM INHALER/CAPSULE (SPIRIVA) INH SCH (07:54)
[2021-01-14] MEDS: DOCUSATE SODIUM 100MG CAPSULE PO SCH ×2 (08:44→21:00)
[2021-01-14] MEDS: METOPROLOL TART 50 MG TAB PO SCH ×2 (08:44→21:00)
[2021-01-14] MEDS: POTASSIUM CHLORIDE 10 MEQ SR TABLET PO SCH (08:44)
[2021-01-14] MEDS: VITAMIN E 400 INTERNATIONAL UNITS CAP PO SCH (08:44)
[2021-01-14] MEDS: diazePAM 5MG TABLET PO SCH ×3 (08:44→21:00)
[2021-01-14] MEDS: APIXABAN 5 MG TAB (ELIQUIS) PO SCH ×2 (08:44→21:38)
[2021-01-14] MEDS: ASCORBIC ACID 500 MG TAB PO SCH (08:44)
[2021-01-14] MEDS: MAGNESIUM OXIDE 400MG TAB (MAG-OX) PO SCH (08:44)
[2021-01-14] MEDS: VITAMIN D 1,000 INTERNATIONAL UNITS TABLET PO SCH (08:45)
[2021-01-14] MEDS ORDERED: predniSONE 20 MG TAB PO SCH (09:00)
[2021-01-14] MEDS ORDERED: POTASSIUM CHLORIDE 10 MEQ SR TABLET PO ONE (10:30)
[2021-01-14] MEDS ORDERED: MAG SULF 1GM/100ML (MAG RUN) 1 GM in IV 1 EA IV ONE (10:30)
--- NOTE | 2021-01-14 11:43 | IPNPDOC ---
Text Note Date of Service The patient was seen on 01/14/21. NOTE SUBJECTIVE: -No acute issues overnight OBJECTIVE: VITAL SIGNS: Please see below GENERAL APPEARANCE: NAD, obese HEENT: NCAT, EOMI, MMM CARDIOVASCULAR: Irregularly irregular, no noted murmurs LUNGS: Diminished with scattered crackles at the bases ABDOMEN: Obese, tender LLQ to deep palpation, no rebound tenderness, normoactive sounds EXTREMITIES: Has LE edema bilaterally. Pulses intact. NEUROLOGICAL: Speech clear. A+Ox3. No focal deficits. PSYCHIATRIC: Mood and affect appear appropriate LABORATORY DATA: Reviewed WBC 15.4 Hgb 12.6 Platelets 258 na 142 K 3.2 (repleted) Cr 1.07 mag 1.5 (repleted) IMAGING: Abd X-ray: FINDINGS: AP chest x-ray shows left pleural effusion. Cardiomegaly. Mitral annular calcification. Supine and cross-table lateral views of the abdomen show no evidence of free intraperitoneal air. Bowel gas pattern is unremarkable. Vascular calcification is noted. No fracture or acute bony abnormality is seen. IMPRESSION: No evidence of obstruction or free intraperitoneal air. No acute bony abnormality is seen.. Cervical Spine CT: FINDINGS: There is no evidence of cervical spine element fracture. No skull base fracture is seen. Cervical vertebral body heights are preserved. Alignment is normal. Facet joints are normally aligned bilaterally at each cervical level on multiplanar re-formations images. There is no evidence of intraspinal or paraspinal hematoma. No extra vertebral abnormality is seen. Degenerative disc disease is noted at C4-5, C5-6, and C6-7 unchanged from the comparison study. There are stable degenerative 2 mm spondylolisthesis ease noted at C4-C5 and at C7-T1. These are unchanged from the comparison study. Posterior osteophytic ridging is seen at C5-6 and C6-7. Osteoarthritic facet hypertrophy is noted bilaterally in the mid cervical spine as before. There is a left pleural effusion extending up to the apex of the left lung visible incidentally. This is a new finding. IMPRESSION: Advanced degenerative spondylosis changes with stable degenerative C4-5 and C7- T1 anterior subluxations. No traumatic bony abnormality. Left pleural effusion noted incidentally as a new finding.. Left Femur x-ray: FINDINGS: There is no evidence of acute fracture, dislocation, or intrinsic bone disease.There is mild superior patellar spurring. IMPRESSION: No fracture or dislocation. CT Head: FINDINGS: Bone window settings demonstrate an intact bony calvarium. There is no evidence of skull fracture or incidental bony calvarial lesion. The visualized paranasal sinuses appear clear. No intraorbital abnormality is seen. On soft tissue window setting images; the lateral, third, and fourth ventricles are normal in size and position. Jeffries-white differentiation pattern is normal above and below the tentorium. There are is no evidence of intracranial hemorrhage. No mass, edema, infarction, or midline shift is seen. No extra-axial fluid collection is appreciated. Vascular calcification is again noted fairly heavily involving the distal internal carotid arteries. There is mild generalized volume loss. Minimal small vessel changes. Findings unchanged from the 19 July 2020 prior study. IMPRESSION: No acute intracranial abnormality. Minimal volume loss and vascular calcification again noted. No skull fracture or intracranial injury seen.. Hip/Pelvis x-ray: FINDINGS: There is no evidence of acute fracture, dislocation or intrinsic bone disease. There is mild narrowing and sclerosis at the sacroiliac joints bilaterally. There are also mild degenerative changes of both hip joints. IMPRESSION: No acute fracture or dislocation. Mild degenerative changes. L Knee x-ray: FINDINGS: Four views of the left knee demonstrate diffuse soft tissue swelling. There is mild osteoarthritic spurring at the medial and lateral compartments. There is diffuse osteopenia. Patellar spurring is noted. The lateral view is underexposed. A lateral view obtained as part of the same day series of the femur shows patellar spurring.. No fracture or subluxation is seen. No opaque foreign body noted. IMPRESSION: Diffuse osteopenia and osteoarthritis. Soft tissue swelling. No fracture seen.. Abd/pelvis CT: FINDINGS: Digital preliminary final rail cutter radiograph shows left pleural effusion and cardi omegaly. Bowel gas pattern is unremarkable. On axial CT images left pleural effusion and pericardial effusion are evident. Left adrenal gland is normal. There is a essentially stable fat containing right adrenal myelolipoma 6.5 cm in greatest diameter again noted. This measured 5.9 cm in 2016. No renal lesion is seen on either side. There is some vascular calcification. There are large is benign and stable calcifications in the right lobe of the liver consistent with granulomas. No liver mass lesion is seen. No abnormality is noted in the gallbladder or the pancreas. Small and large bowel loops are unremarkable in the upper abdomen. Pelvic CT images demonstrate no uterine or urinary bladder abnormality. The rectum is somewhat distended with formed stool consistent with constipation. No free air or free fluid. No abdominal wall defect seen. Bone window settings show degenera tive spondylosis changes in the lumbar spine. No fracture is seen. IMPRESSION: No acute abdominal or pelvic abnormality. stable findings in the liver right adrenal gland. New left pleural effusion and pericardial effusion. Left colonic diverticulosis without CT evidence of diverticulitis. Chest CT: FINDINGS: Preliminary digital final rail cutter radiograph demonstrates evidence of left pleural effusion. Axial CT images confirm the presence of small to moderate left pleural effusion layering in the posterior aspect of the left hemithorax. There is partial collapse and air bronchograms are seen in the lingular segment of the left upper lobe. There are atelectatic changes with air bronchograms in the left lower lobe as well. No endobronchial disease is seen. No pulmonary parenchymal mass lesion is observed. There is also a small pericardial effusion which is a new finding. No hilar or mediastinal mass or adenopathy is seen. There is a 1.4 cm irregular mass in the left breast soft tissues. No axillary, internal mammary, or supraclavicular adenopathy is seen. There is a 7 mm noncalcified pulmonary nodule in the right upper lobe projecting on page 34 of 100 and series 204 of today's study. This is unchanged from the November 11, 2020 study no other pulmonary nodule is appreciated.0 there is a benign hemangioma in 1 of the lower thoracic vertebral bodies. No bony destructive lesion is appreciated. No rib or other fracture seen. IMPRESSION: Small to moderate left pleural effusion with atelectatic changes in the lingula and left lower lobe. Small pericardial effusion. These are new findings. 7 mm nodule in the right upper lobe of the lung unchanged from November 11, 2020. Not present in 2011.. 14 mm left breast mass. Further evaluation suggested to include diagnostic mammography and sonography of the left breast.] MICROBIOLOGY: Please see below. ASSESSMENT: 75 y/o W with chronic a-fib, copd, pulmonary htn, carrington, chronic hypoxemia on 2L at home O2 at baseline, DM2 and chronic back pain who presents to the ED after suffering a mechanical fall and reporting constipation and found to be in liz CHF. . PLAN: 1. Volume overload - Most likely CHF, patient is unsure if she has ever been diagnosed with this in the past - Fluid overload likely contributing to patients fatigue and sob at home - Lasix 40mg q12h Iv, for goal net negative 2L/24h - Will continue supplemental o2 titrated to 88-92% - ECHO pending - 2L/24h fluid status, 2g sodium 2. A-fib - Cardiac marker panel unrevealing - continue eliquis - Continue metoprolol 50mg bid - tele 3. Metabolic Alkalosis - Potentially mixed picture from fluid overload, constipation, hydrochlorothiazide - Will hold HCTZ for now 4. Constipation - No radiographic evidence of ileus or SBO - Patient had BM in the ED - milk of mag/colace 5. Potential COPD exacerbation - holding PRN albuterol for now d/t tachycardia - Continue spiriva - Continue home oxygen - Continue prednisone 40mg PO - Continue duonebs q6h 6. CARRINGTON - does not wear cpap, will monitor pulse ox 7. DM - sliding scale insulin, hypoglycemic protocol 8. chronic pain - continue at home oxycodone 9. Anxiety - continue valium 10. Breast mass - 1.4cm irregular mass noted in left breast incidentally on imaging. Patient should f/u promptly outpatient with PCP for breast US or mammogram 11. Pulmonary module - 7 mm noncalcified module noted in right upper lobe incidentally on imaging, unchanged from prior chest imaging in october 2020. Patient should f/u outpatient with PCP 12. DVT prophylaxis - eliquis VS,Fishbone, I+O VS, Fishbone, I+O Laboratory Tests 01/13/21 15:16 01/14/21 05:20 Vital Signs Date Time Temp Pulse Resp B/P (MAP) Pulse Ox O2 Delivery O2 Flow Rate FiO2 01/14/21 08:44 93 105/60 01/14/21 08:00 100 Nasal Cannula 6.0 01/14/21 08:00 97.7 16 01/14/21 04:00 95 I&O- Last 24 Hours up to 6 AM 01/14/21 06:00 Intake Total 600 ml Output Total 1050 ml Balance -450 ml YNES WINSTON MD Jan 14, 2021 10:27
[2021-01-14] MEDS: ACETAMINOPHEN TAB 650MG DOSE (2X325MG) PO PRN (18:41)
[2021-01-14] MEDS ORDERED: METOPROLOL TART 25 MG TABLET PO ONE (21:20)
[2021-01-15] VITALS (18 sets, daily range): BP systolic 93–121; BP diastolic 54–70; O2SAT 78–97
[2021-01-15] MEDS ORDERED: FUROSEMIDE 40MG/4ML VIAL (J1940) IV SCH
[2021-01-15] MEDS: ACETAMINOPHEN TAB 650MG DOSE (2X325MG) PO PRN ×2 (01:35→18:34)
[2021-01-15 05:56] LABS: HEMATOCRIT 38.1 % (36.0-47.0); HEMOGLOBIN 11.5 g/dl (12.0-15.5); MEAN CORPUSCULAR HEMOGLOBIN 30.3 pg (27.0-33.0); MEAN CORPUSCULAR HGB CONC 30.2 g/dl (32.0-36.5); MEAN CORPUSCULAR VOLUME 100.3 fl (80.0-96.0); PLATELET COUNT, AUTOMATED 206 10^3/uL (150-450); WHITE BLOOD COUNT 12.2 10^3/uL (4.0-10.0)
[2021-01-15 06:15] LABS: INR 2.04; PROTHROMBIN TIME 23.5 SECONDS (12.5-14.3)
[2021-01-15] MEDS: oxyCODONE 5MG TAB PO PRN ×2 (06:26→16:07)
[2021-01-15 06:40] LABS: BLOOD UREA NITROGEN 35 MG/DL (7-18); CHLORIDE LEVEL 93 MEQ/L (98-107); CREATININE FOR GFR 1.29 MG/DL (0.55-1.30); GLOMERULAR FILTRATION RATE 42.7 (>39); GLUCOSE, FASTING 126 MG/DL (70-100); MAGNESIUM LEVEL 1.8 MG/DL (1.8-2.4); NT-PRO BNP 5403 PG/ML (<450); POTASSIUM SERUM 3.4 MEQ/L (3.5-5.1); SODIUM LEVEL 140 MEQ/L (136-145)
[2021-01-15 06:41] LABS: CARBON DIOXIDE LEVEL 48 MEQ/L (21-32)
[2021-01-15] MEDS ORDERED: POTASSIUM CHLORIDE 10 MEQ SR TABLET PO ONE (06:55)
[2021-01-15] MEDS: TIOTROPIUM INHALER/CAPSULE (SPIRIVA) INH SCH (07:08)
[2021-01-15] MEDS: MAGNESIUM OXIDE 400MG TAB (MAG-OX) PO SCH (08:27)
[2021-01-15] MEDS: METOPROLOL TART 50 MG TAB PO SCH ×2 (08:27→21:00)
[2021-01-15] MEDS: APIXABAN 5 MG TAB (ELIQUIS) PO SCH ×2 (08:27→20:08)
[2021-01-15] MEDS: POTASSIUM CHLORIDE 10 MEQ SR TABLET PO SCH (08:27)
[2021-01-15] MEDS: diazePAM 5MG TABLET PO SCH ×3 (08:28→20:08)
[2021-01-15] MEDS: VITAMIN D 1,000 INTERNATIONAL UNITS TABLET PO SCH (08:28)
[2021-01-15] MEDS: DOCUSATE SODIUM 100MG CAPSULE PO SCH ×2 (08:28→20:08)
[2021-01-15] MEDS: ASCORBIC ACID 500 MG TAB PO SCH (08:28)
[2021-01-15] MEDS: VITAMIN E 400 INTERNATIONAL UNITS CAP PO SCH (08:29)
[2021-01-15] MEDS: HumaLOG INSULIN (NovoLOG) PER UNIT SC SCH ×4 (08:29→21:00)
[2021-01-15] MEDS ORDERED: DOK1CAP7 PO (08:51)
--- NOTE | 2021-01-15 10:47 | ECHO ---
DATE OF PROCEDURE: 01/14/2021 Age: 75 Gender: Female Height: 147 cm Weight: 80 kg REFERRING PHYSICIAN: TEJAS Forte INDICATION: Heart failure, unspecified. MEASUREMENTS: 2D Measurements: Intraventricular septum 0.91 cm Posterior wall 1.21 cm Left ventricle diastole 3.3 cm Left ventricle systole 1.7 cm Aortic root 2.2 cm Left atrium 3.9 cm Aortic annulus 1.8 cm Inferior vena cava 2.2 cm with less than 50% respiratory variation Doppler Measurements: No aortic stenosis No aortic regurgitation Aortic valve velocity 139 cm/s LVOT velocity 72.5 cm/s Trace mitral regurgitation Mitral E velocity 126 cm/s Mitral deceleration time 182 msec No tricuspid regurgitation No pulmonic regurgitation Pulmonary artery acceleration time 95 msec MITRAL ANNULAR TISSUE DOPPLER E prime septal 6.2 cm/s, E prime lateral 8.1 cm/s DESCRIPTION: Rhythm was atrial fibrillation with controlled ventricular response. This was a moderately technically difficult echocardiogram. This was a 2D, M-mode, color flow Doppler, and pulsed wave Doppler examination including mitral annular tissue Doppler. CONCLUSIONS: 1. Normal left ventricle size for patients body size. Borderline concentric left ventricular hypertrophy. No regional LV wall motion abnormalities. Hyperdynamic LV systolic function. LVEF 75% by visual assessment. Insignificant dynamic intracavitary LV gradient. 2. Normal right ventricle size with mild right ventricular hypertrophy of the right ventricle free wall. 3. Moderate aortic valve sclerosis of a 3-cuspid aortic valve. No aortic regurgitation or aortic stenosis. 4. Moderate mitral annular calcification. Trace mitral regurgitation. No mitral stenosis. 5. Mild left atrial dilatation. 6. Suggestive of mild elevation of pulmonary artery systolic pressure. Mild right atrial dilatation. 7. Suggestive of elevated central venous pressure of at least 20 mmHg. 8. Small circumferential pericardial effusion measuring maximal 1.1 cm over the posterior wall of the left ventricle. No diastolic chamber collapse. 9. Bilateral pleural effusions. 10. Moderately technically difficult echocardiogram. [facility]
--- NOTE | 2021-01-15 12:21 | DS.PDOC ---
Discharge Summary General Date of Admission Jan 13, 2021 at 19:09 Date of Discharge 01/15/2021 Attending Physician: YNES WINSTON MD Discharge Summary PROCEDURES PERFORMED DURING STAY: None ADMITTING DIAGNOSES: Mechanical fall CHF DISCHARGE DIAGNOSES: HFpEF exacerbation Incidentally found L breast mass on CT chest that needs further imaging with mammography and US in the outpatient setting Chronic a-fib COPD pulmonary htn carrington not on CPAP chronic hypoxemia on 2L at home O2 at baseline DM2 Chronic back pain COMPLICATIONS/CHIEF COMPLAINT: Chf (Congestive Heart Failure). HISTORY OF PRESENT ILLNESS: 75 year old W with a pmh of a-fib, copd, pulmonary htn, carrington, chronic hypoxemia on 2L at home O2 at baseline, DM2 and chronic back pain who presents to the ED after suffering a mechanical fall i/s/o recently being started on percocet for her back pain approx 4 days prior and reporting that it helped her pain but has made her constipated so she has been rushing to the bathroom at times to try to move her bowels and one time while in a [place] to get to the bathroom, she ran into the door frame and fell onto her left side. She denied pre-fall dizziness, LOC and did not strike her head. She otherwise denied vomiting, bloody stools, fever, chills. She did endorse increased sob and activity intolerance in the few days prior to presentation and had been sleeping on the couch propped up on multiple pillows in order to sleep, without any chest pain, palpitations, cough or calf pain. HOSPITAL COURSE: On presentation CT head, C-spine, CXR, AXR, L lip XR, L knee XR were all negative for acute pathology or fractures while LE dopplers were negative for DVT and CT of chest showed an incidentally noted 14 mm left breast mass for which she will require follow up mammography and breast US with the PCP promptly. She had an elevated proBNP, negative troponin, non-ischemic EKG and had a noted small to moderate left pleural effusion on CT and was treated for a CHF exacerbation with diuretics. She worked with PT and is now being discharged home with PCP follow up promptly for the breast mass for further imaging and for post discharge follow up. With regard to the constipation, she was started on a bowel regimen that actually had to be de-escalated as she developed some diarrhea with resolution of her abdominal discomfort. DISCHARGE MEDICATIONS: Please see below. ALLERGIES: Please see below. PHYSICAL EXAMINATION ON DISCHARGE: VITAL SIGNS: Please see below. GENERAL APPEARANCE: NAD, obese HEENT: NCAT, EOMI, MMM CARDIOVASCULAR: Irregularly irregular, no noted murmurs LUNGS: Diminished with trace crackles at the bases, on baseline 2L NC ABDOMEN: Obese, NTND, normoactive sounds EXTREMITIES: Has LE edema bilaterally. Pulses intact. NEUROLOGICAL: Speech clear. A+Ox3. No focal deficits. PSYCHIATRIC: Mood and affect appear appropriate LABORATORY DATA: please see below. IMAGING: Abd X-ray: FINDINGS: AP chest x-ray shows left pleural effusion. Cardiomegaly. Mitral annular calcification. Supine and cross-table lateral views of the abdomen show no evidence of free intraperitoneal air. Bowel gas pattern is unremarkable. Vascular calcification is noted. No fracture or acute bony abnormality is seen. IMPRESSION: No evidence of obstruction or free intraperitoneal air. No acute bony abnormality is seen.. Cervical Spine CT: FINDINGS: There is no evidence of cervical spine element fracture. No skull base fracture is seen. Cervical vertebral body heights are preserved. Alignment is normal. Facet joints are normally aligned bilaterally at each cervical level on multiplanar re-formations images. There is no evidence of intraspinal or paraspinal hematoma. No extra vertebral abnormality is seen. Degenerative disc disease is noted at C4-5, C5-6, and C6-7 unchanged from the comparison study. There are stable degenerative 2 mm spondylolisthesis ease noted at C4-C5 and at C7-T1. These are unchanged from the comparison study. Posterior osteophytic ridging is seen at C5-6 and C6-7. Osteoarthritic facet hypertrophy is noted bilaterally in the mid cervical spine as before. There is a left pleural effusion extending up to the apex of the left lung visible incidentally. This is a new finding. IMPRESSION: Advanced degenerative spondylosis changes with stable degenerative C4-5 and C7- T1 anterior subluxations. No traumatic bony abnormality. Left pleural effusion noted incidentally as a new finding.. Left Femur x-ray: FINDINGS: There is no evidence of acute fracture, dislocation, or intrinsic bone disease.There is mild superior patellar spurring. IMPRESSION: No fracture or dislocation. CT Head: FINDINGS: Bone window settings demonstrate an intact bony calvarium. There is no evidence of skull fracture or incidental bony calvarial lesion. The visualized paranasal sinuses appear clear. No intraorbital abnormality is seen. On soft tissue window setting images; the lateral, third, and fourth ventricles are normal in size and position. Jeffries-white differentiation pattern is normal above and below the tentorium. T here are is no evidence of intracranial hemorrhage. No mass, edema, infarction, or midline shift is seen. No extra-axial fluid collection is appreciated. Vascular calcification is again noted fairly heavily involving the distal internal carotid arteries. There is mild generalized volume loss. Minimal small vessel changes. Findings unchanged from the 19 July 2020 prior study. IMPRESSION: No acute intracranial abnormality. Minimal volume loss and vascular calcification again noted. No skull fracture or intracranial injury seen.. Hip/Pelvis x-ray: FINDINGS: There is no evidence of acute fracture, dislocation or intrinsic bone disease. There is mild narrowing and sclerosis at the sacroiliac joints bilaterally. There are also mild degenerative changes of both hip joints. IMPRESSION: No acute fracture or dislocation. Mild degenerative changes. L Knee x-ray: FINDINGS: Four views of the left knee demonstrate diffuse soft tissue swelling. There is mild osteoarthritic spurring at the medial and lateral compartments. There is diffuse osteopenia. Patellar spurring is noted. The lateral view is underexposed. A lateral view obtained as part of the same day series of the femur shows patellar spurring.. No fracture or subluxation is seen. No opaque foreign body noted. IMPRESSION: Diffuse osteopenia and osteoarthritis. Soft tissue swelling. No fracture seen.. Abd/pelvis CT: FINDINGS: Digital preliminary barber radiograph shows left pleural effusion and cardiomegaly. Bowel gas pattern is unremarkable. On axial CT images left pleural effusion and pericardial effusion are evident. Left adrenal gland is normal. There is a essentially stable fat containing right adrenal myelolipoma 6.5 cm in greatest diameter again noted. This measured 5.9 cm in 2016. No renal lesion is seen on either side. There is some vascular calcification. There are large is benign and stable calcifications in the right lobe of the liver consistent with granulomas. No liver mass lesion is seen. No abnormality is noted in the gallbladder or the pancreas. Small and large bowel loops are unremarkable in the upper abdomen. Pelvic CT images demonstrate no uterine or urinary bladder abnormality. The rectum is somewhat distended with formed stool consistent with constipation. No free air or free fluid. No abdominal wall defect seen. Bone window settings show degenerative spondylosis changes in the lumbar spine. No fracture is seen. IMPRESSION: No acute abdominal or pelvic abnormality. stable findings in the liver right adrenal gland. New left pleural effusion and pericardial effusion. Left colonic diverticulosis without CT evidence of diverticulitis. Chest CT: FINDINGS: Preliminary digital barber radiograph demonstrates evidence of left pleural effusion. Axial CT images confirm the presence of small to moderate left pleural effusion layering in the posterior aspect of the left hemithorax. There is partial collapse and air bronchograms are seen in the lingular segment of the left upper lobe. There are atelectatic changes with air bronchograms in the left lower lobe as well. No endobronchial disease is seen. No pulmonary parenchymal mass lesion is obs erved. There is also a small pericardial effusion which is a new finding. No hilar or mediastinal mass or adenopathy is seen. There is a 1.4 cm irregular mass in the left breast soft tissues. No axillary, internal mammary, or supraclavicular adenopathy is seen. There is a 7 mm noncalcified pulmonary nodule in the right upper lobe projecting on page 34 of 100 and series 204 of today's study. This is unchanged from the November 11, 2020 study no other pulmonary nodule is appreciated.0 there is a benign hemangioma in 1 of the lower thoracic vertebral bodies. No bony destructive lesion is appreciated. No rib or other fracture seen. IMPRESSION: Small to moderate left pleural effusion with atelectatic changes in the lingula and left lower lobe. Small pericardial effusion. These are new findings. 7 mm nodule in the right upper lobe of the lung unchanged from November 11, 2020. Not present in 2011.. 14 mm left breast mass. Further evaluation suggested to include diagnostic mammography and sonography of the left breast.] PROGNOSIS: Good ACTIVITY: As tolerated DIET: 2g sodium DISCHARGE PLAN: Home with close PCP follow up DISPOSITION: Home DISCHARGE INSTRUCTIONS: Please follow up with your PCP promptly for the noted L breast mass. ITEMS TO FOLLOWUP ON ON OUTPATIENT: L breast mass for further imaging Volume optimization DISCHARGE CONDITION: Stable TIME SPENT ON DISCHARGE: 40 minutes. Vital Signs/I&Os Vital Signs Date Time Temp Pulse Resp B/P (MAP) Pulse Ox O2 Delivery O2 Flow Rate FiO2 01/15/21 08:27 82 115/60 01/15/21 06:56 18 Nasal Cannula 6.0 01/15/21 06:26 96 01/15/21 04:00 96.6 01/14/21 04:00 95 I&O- Last 24 Hours up to 6 AM 01/15/21 06:00 Intake Total 400 ml Output Total 600 ml Balance -200 ml Laboratory Data Labs 24H Laboratory Tests 2 01/14/21 12:11: Bedside Glucose (Misc Panel) 160H 01/14/21 16:59: Bedside Glucose (Misc Panel) 185H 01/14/21 21:01: Bedside Glucose (Misc Panel) 138H 01/15/21 05:47: Nucleated Red Blood Cells % (auto) 0.0, Prothrombin Time 23.5H, Prothromb Time International Ratio 2.04, Anion Gap , Glomerular Filtration Rate 42.7, Calcium Level 9.0, Magnesium Level 1.8, NN-Pee-J-Type Natriuretic Peptide 5403H CBC/BMP Laboratory Tests 01/15/21 05:47 FSBS Laboratory Tests Test 01/14/21 12:11 01/14/21 16:59 01/14/21 21:01 Range/Units Bedside Glucose (Misc Panel) 160 185 138 83-110 MG/DL Discharge Medications Scheduled Apixaban (Eliquis) 5 Mg Tablet, 5 MG PO BID, (Reported) Ascorbic Acid (Ascorbic Acid) 500 Mg Tablet, 500 MG PO DAILY, (Reported) Cholecalciferol (Vitamin D3) (Vitamin D3) 1,000 Unit Tablet, 1,000 UNITS PO DAILY, (Reported) Diazepam (Valium) 5 Mg Tab, 5 MG PO TID, (Reported) Docusate Sodium (Dok) 100 Mg Capsule, 100 MG PO DAILY Furosemide (Furosemide) 20 Mg Tablet, 20 MG PO DAILY, (Reported) Hydrochlorothiazide (Hydrochlorothiazide) 25 Mg Tablet, 25 MG PO DAILY, (Reported) Magnesium Oxide (Magnesium) 400 Mg Capsule, 400 MG PO DAILY, (Reported) Metoprolol Tartrate (Metoprolol Tartrate) 25 Mg Tablet, 25 MG PO BID, (Reported) Potassium Chloride (Potassium Chloride) 10 Meq Tab.er.prt, 10 MEQ PO DAILY, (Reported) Tiotropium [place] (Spiriva) 18 Mcg Cap.w.dev, 18 MCG INH DAILY, (Reported) Vitamin E (Vitamin E) 400 Unit Capsule, 400 UNIT PO DAILY, (Reported) Scheduled PRN Albuterol Sulf (Albuterol Sulfate) 2.5 Mg/3 Ml Nebu, 1 VIAL NEB Q2H PRN for SOB/WHEEZING, (Reported) Albuterol Sulfate (Proair Hfa) 8.5 Gm Hfa.aer.ad, 2 PUFF INH QID PRN for SHORTNESS OF BREATH, (Reported) Oxycodone HCl/Acetaminophen (Percocet 7.5-325 mg Tablet) 1 Each Tablet, 1 TAB PO TID PRN for PAIN, (Reported) Allergies Coded Allergies: adhesive tape (Verified Allergy, Mild, RASH, 01/13/21) latex (Verified Allergy, Mild, RASH, 01/13/21) azithromycin (Unverified Adverse Reaction, Mild, GI, 01/13/21) Listed under diet YNES WINSTON MD Jan 15, 2021 08:49
--- NOTE | 2021-01-15 12:47 | IPNPDOC ---
Text Note Date of Service The patient was seen on 01/15/21. NOTE SUBJECTIVE: -No acute issues overnight OBJECTIVE: VITAL SIGNS: Please see below GENERAL APPEARANCE: NAD, obese HEENT: NCAT, EOMI, MMM CARDIOVASCULAR: Irregularly irregular, no noted murmurs LUNGS: Diminished with scattered crackles at the bases ABDOMEN: Obese, tender LLQ to deep palpation, no rebound tenderness, normoactive sounds EXTREMITIES: Has LE edema bilaterally. Pulses intact. NEUROLOGICAL: Speech clear. A+Ox3. No focal deficits. PSYCHIATRIC: Mood and affect appear appropriate LABORATORY DATA: Reviewed WBC 15.4 Hgb 12.6 Platelets 258 na 142 K 3.2 (repleted) Cr 1.07 mag 1.5 (repleted) IMAGING: Abd X-ray: FINDINGS: AP chest x-ray shows left pleural effusion. Cardiomegaly. Mitral annular calcification. Supine and cross-table lateral views of the abdomen show no evidence of free intraperitoneal air. Bowel gas pattern is unremarkable. Vascular calcification is noted. No fracture or acute bony abnormality is seen. IMPRESSION: No evidence of obstruction or free intraperitoneal air. No acute bony abnormality is seen.. Cervical Spine CT: FINDINGS: There is no evidence of cervical spine element fracture. No skull base fracture is seen. Cervical vertebral body heights are preserved. Alignment is normal. Facet joints are normally aligned bilaterally at each cervical level on multiplanar re-formations images. There is no evidence of intraspinal or paraspinal hematoma. No extra vertebral abnormality is seen. Degenerative disc disease is noted at C4-5, C5-6, and C6-7 unchanged from the comparison study. There are stable degenerative 2 mm spondylolisthesis ease noted at C4-C5 and at C7-T1. These are unchanged from the comparison study. Posterior osteophytic ridging is seen at C5-6 and C6-7. Osteoarthritic facet hypertrophy is noted bilaterally in the mid cervical spine as before. There is a left pleural effusion extending up to the apex of the left lung visible incidentally. This is a new finding. IMPRESSION: Advanced degenerative spondylosis changes with stable degenerative C4-5 and C7- T1 anterior subluxations. No traumatic bony abnormality. Left pleural effusion noted incidentally as a new finding.. Left Femur x-ray: FINDINGS: There is no evidence of acute fracture, dislocation, or intrinsic bone disease.There is mild superior patellar spurring. IMPRESSION: No fracture or dislocation. CT Head: FINDINGS: Bone window settings demonstrate an intact bony calvarium. There is no evidence of skull fracture or incidental bony calvarial lesion. The visualized paranasal sinuses appear clear. No intraorbital abnormality is seen. On soft tissue window setting images; the lateral, third, and fourth ventricles are normal in size and position. Jeffries-white differentiation pattern is normal above and below the tentorium. There are is no evidence of intracranial hemorrhage. No mass, edema, infarction, or midline shift is seen. No extra-axial fluid collection is appreciated. Vascular calcification is again noted fairly heavily involving the distal internal carotid arteries. There is mild generalized volume loss. Minimal small vessel changes. Findings unchanged from the 19 July 2020 prior study. IMPRESSION: No acute intracranial abnormality. Minimal volume loss and vascular calcification again noted. No skull fracture or intracranial injury seen.. Hip/Pelvis x-ray: FINDINGS: There is no evidence of acute fracture, dislocation or intrinsic bone disease. There is mild narrowing and sclerosis at the sacroiliac joints bilaterally. There are also mild degenerative changes of both hip joints. IMPRESSION: No acute fracture or dislocation. Mild degenerative changes. L Knee x-ray: FINDINGS: Four views of the left knee demonstrate diffuse soft tissue swelling. There is mild osteoarthritic spurring at the medial and lateral compartments. There is diffuse osteopenia. Patellar spurring is noted. The lateral view is underexposed. A lateral view obtained as part of the same day series of the femur shows patellar spurring.. No fracture or subluxation is seen. No opaque foreign body noted. IMPRESSION: Diffuse osteopenia and osteoarthritis. Soft tissue swelling. No fracture seen.. Abd/pelvis CT: FINDINGS: Digital preliminary watch assembler radiograph shows left pleural effusion and cardi omegaly. Bowel gas pattern is unremarkable. On axial CT images left pleural effusion and pericardial effusion are evident. Left adrenal gland is normal. There is a essentially stable fat containing right adrenal myelolipoma 6.5 cm in greatest diameter again noted. This measured 5.9 cm in 2016. No renal lesion is seen on either side. There is some vascular calcification. There are large is benign and stable calcifications in the right lobe of the liver consistent with granulomas. No liver mass lesion is seen. No abnormality is noted in the gallbladder or the pancreas. Small and large bowel loops are unremarkable in the upper abdomen. Pelvic CT images demonstrate no uterine or urinary bladder abnormality. The rectum is somewhat distended with formed stool consistent with constipation. No free air or free fluid. No abdominal wall defect seen. Bone window settings show degenera tive spondylosis changes in the lumbar spine. No fracture is seen. IMPRESSION: No acute abdominal or pelvic abnormality. stable findings in the liver right adrenal gland. New left pleural effusion and pericardial effusion. Left colonic diverticulosis without CT evidence of diverticulitis. Chest CT: FINDINGS: Preliminary digital watch assembler radiograph demonstrates evidence of left pleural effusion. Axial CT images confirm the presence of small to moderate left pleural effusion layering in the posterior aspect of the left hemithorax. There is partial collapse and air bronchograms are seen in the lingular segment of the left upper lobe. There are atelectatic changes with air bronchograms in the left lower lobe as well. No endobronchial disease is seen. No pulmonary parenchymal mass lesion is observed. There is also a small pericardial effusion which is a new finding. No hilar or mediastinal mass or adenopathy is seen. There is a 1.4 cm irregular mass in the left breast soft tissues. No axillary, internal mammary, or supraclavicular adenopathy is seen. There is a 7 mm noncalcified pulmonary nodule in the right upper lobe projecting on page 34 of 100 and series 204 of today's study. This is unchanged from the November 11, 2020 study no other pulmonary nodule is appreciated.0 there is a benign hemangioma in 1 of the lower thoracic vertebral bodies. No bony destructive lesion is appreciated. No rib or other fracture seen. IMPRESSION: Small to moderate left pleural effusion with atelectatic changes in the lingula and left lower lobe. Small pericardial effusion. These are new findings. 7 mm nodule in the right upper lobe of the lung unchanged from November 11, 2020. Not present in 2011.. 14 mm left breast mass. Further evaluation suggested to include diagnostic mammography and sonography of the left breast.] MICROBIOLOGY: Please see below. ASSESSMENT: 75 y/o W with chronic a-fib, copd, pulmonary htn, car[place], chronic hypoxemia on 2L at home O2 at baseline, DM2 and chronic back pain who presents to the ED after suffering a mechanical fall and reporting constipation and found to be in liz CHF. . PLAN: 1. HFpEF exacerbation, improved - DC IV Lasix 40mg q12h and resume home PO diuretic dosing - Will continue supplemental o2 titrated to 88-92%, currently at baseline 2L - 2L/24h fluid status, 2g sodium 2. A-fib - Cardiac marker panel unrevealing - continue eliquis - Continue metoprolol 50mg bid 3. Metabolic Alkalosis: resolved - Potentially mixed picture from fluid overload, constipation, hydrochlorothiazide - Held HCTZ 4. Constipation - No radiographic evidence of ileus or SBO - Patient had BM in the ED - milk of mag/colace 5. Potential COPD exacerbation - holding PRN albuterol for now d/t tachycardia - Continue spiriva - Continue home oxygen - Continue prednisone 40mg PO - Continue duonebs q6h 6. C[place] - does not wear cpap, will monitor pulse ox 7. DM - sliding scale insulin, hypoglycemic protocol 8. chronic pain - continue at home oxycodone 9. Anxiety - continue valium 10. Breast mass - 1.4cm irregular mass noted in left breast incidentally on imaging. Patient should f/u promptly outpatient with PCP for breast US or mammogram 11. Pulmonary module - 7 mm noncalcified module noted in right upper lobe incidentally on imaging, u nchanged from prior chest imaging in october 2020. Patient should f/u outpatient with PCP 12. DVT prophylaxis - eliquis Dispo: ARU screen placed. PT/OT ongoing. VS,Fishbone, I+O VS, Fishbone, I+O Laboratory Tests 01/15/21 05:47 Vital Signs Date Time Temp Pulse Resp B/P (MAP) Pulse Ox O2 Delivery O2 Flow Rate FiO2 01/15/21 10:00 95 Nasal Cannula 2.0 01/15/21 08:27 82 115/60 01/15/21 08:00 97.4 18 01/14/21 04:00 95 I&O- Last 24 Hours up to 6 AM 01/15/21 06:00 Intake Total 400 ml Output Total 600 ml Balance -200 ml YNES WINSTON MD Jan 15, 2021 12:47
[2021-01-16] MEDS: oxyCODONE 5MG TAB PO PRN ×3 (01:20→17:39)
[2021-01-16] MEDS: ACETAMINOPHEN TAB 650MG DOSE (2X325MG) PO PRN ×3 (01:21→17:39)
[2021-01-16 06:40] VITALS: BP 126/84
[2021-01-16 07:22] LABS: HEMATOCRIT 39.1 % (36.0-47.0); HEMOGLOBIN 11.8 g/dl (12.0-15.5); MEAN CORPUSCULAR HEMOGLOBIN 30.5 pg (27.0-33.0); MEAN CORPUSCULAR HGB CONC 30.2 g/dl (32.0-36.5); PLATELET COUNT, AUTOMATED 251 10^3/uL (150-450); RED BLOOD COUNT 3.87 10^6/uL (4.00-5.40); WHITE BLOOD COUNT 12.2 10^3/uL (4.0-10.0)
[2021-01-16] MEDS: HumaLOG INSULIN (NovoLOG) PER UNIT SC SCH ×4 (07:30→20:48)
[2021-01-16 07:34] LABS: CALCIUM LEVEL 9.4 MG/DL (8.8-10.2); CREATININE FOR GFR 1.56 MG/DL (0.55-1.30); GLOMERULAR FILTRATION RATE 34.3 (>39); MAGNESIUM LEVEL 1.8 MG/DL (1.8-2.4); POTASSIUM SERUM 3.7 MEQ/L (3.5-5.1)
[2021-01-16 07:37] LABS: INR 1.82; PROTHROMBIN TIME 21.5 SECONDS (12.5-14.3)
[2021-01-16] MEDS: TIOTROPIUM INHALER/CAPSULE (SPIRIVA) INH SCH (07:44)
[2021-01-16] MEDS: IPRATROPIUM 0.5MG/ALBUTEROL 2.5MG INH SOL UD 3ML (DUONEB) NEB PRN (08:18)
[2021-01-16] MEDS: METOPROLOL TART 50 MG TAB PO SCH ×2 (09:00→20:48)
[2021-01-16] MEDS ORDERED: FUROSEMIDE 20 MG TAB PO SCH (09:00)
[2021-01-16] MEDS: APIXABAN 5 MG TAB (ELIQUIS) PO SCH ×2 (09:02→20:47)
[2021-01-16] MEDS: MAGNESIUM OXIDE 400MG TAB (MAG-OX) PO SCH (09:02)
[2021-01-16] MEDS: VITAMIN E 400 INTERNATIONAL UNITS CAP PO SCH (09:02)
[2021-01-16] MEDS: ASCORBIC ACID 500 MG TAB PO SCH (09:02)
[2021-01-16] MEDS: DOCUSATE SODIUM 100MG CAPSULE PO SCH ×2 (09:03→20:47)
[2021-01-16] MEDS: diazePAM 5MG TABLET PO SCH ×3 (09:03→20:47)
[2021-01-16] MEDS: VITAMIN D 1,000 INTERNATIONAL UNITS TABLET PO SCH (09:03)
[2021-01-16] MEDS: POTASSIUM CHLORIDE 10 MEQ SR TABLET PO SCH (09:03)
[2021-01-16] MEDS: FUROSEMIDE 20 MG TAB PO SCH (09:30)
--- NOTE | 2021-01-16 11:58 | IPNPDOC ---
Text Note Date of Service The patient was seen on 01/16/21. NOTE SUBJECTIVE: -No acute issues overnight OBJECTIVE: VITAL SIGNS: Please see below GENERAL APPEARANCE: NAD, obese HEENT: NCAT, EOMI, MMM CARDIOVASCULAR: Irregularly irregular, no noted murmurs LUNGS: Diminished with scattered crackles at the bases ABDOMEN: Obese, tender LLQ to deep palpation, no rebound tenderness, normoactive sounds EXTREMITIES: Has LE edema bilaterally. Pulses intact. NEUROLOGICAL: Speech clear. A+Ox3. No focal deficits. PSYCHIATRIC: Mood and affect appear appropriate LABORATORY DATA: Reviewed WBC 12.2 Hgb 11.8 Platelets 251 na 138 K 3.7 Cr 1.56 mag 1.9 IMAGING: Abd X-ray: FINDINGS: AP chest x-ray shows left pleural effusion. Cardiomegaly. Mitral annular calcification. Supine and cross-table lateral views of the abdomen show no evidence of free intraperitoneal air. Bowel gas pattern is unremarkable. Vascular calcification is noted. No fracture or acute bony abnormality is seen. IMPRESSION: No evidence of obstruction or free intraperitoneal air. No acute bony abnormality is seen.. Cervical Spine CT: FINDINGS: There is no evidence of cervical spine element fracture. No skull base fracture is seen. Cervical vertebral body heights are preserved. Alignment is normal. Facet joints are normally aligned bilaterally at each cervical level on multiplanar re-formations images. There is no evidence of intraspinal or paraspinal hematom a. No extra vertebral abnormality is seen. Degenerative disc disease is noted at C4-5, C5-6, and C6-7 unchanged from the comparison study. There are stable degenerative 2 mm spondylolisthesis ease noted at C4-C5 and at C7-T1. These are unchanged from the comparison study. Posterior osteophytic ridging is seen at C5-6 and C6-7. Osteoarthritic facet hypertrophy is noted bilaterally in the mid cervical spine as before. There is a left pleural effusion extending up to the apex of the left lung visible incidentally. This is a new finding. IMPRESSION: Advanced degenerative spondylosis changes with stable degenerative C4-5 and C7- T1 anterior subluxations. No traumatic bony abnormality. Left pleural effusion noted incidentally as a new finding.. Left Femur x-ray: FINDINGS: There is no evidence of acute fracture, dislocation, or intrinsic bone disease.There is mild superior patellar spurring. IMPRESSION: No fracture or dislocation. CT Head: FINDINGS: Bone window settings demonstrate an intact bony calvarium. There is no evidence of skull fracture or incidental bony calvarial lesion. The visualized paranasal sinuses appear clear. No intraorbital abnormality is seen. On soft tissue window setting images; the lateral, third, and fourth ventricles are normal in size and posi tion. Jeffries-white differentiation pattern is normal above and below the tentorium. There are is no evidence of intracranial hemorrhage. No mass, edema, infarction, or midline shift is seen. No extra-axial fluid collection is appreciated. Vascular calcification is again noted fairly heavily involving the distal internal carotid arteries. There is mild generalized volume loss. Minimal small vessel changes. Findings unchanged from the 19 July 2020 prior study. IMPRESSION: No acute intracranial abnormality. Minimal volume loss and vascular calcification again noted. No skull fracture or intracranial injury seen.. Hip/Pelvis x-ray: FINDINGS: There is no evidence of acute fracture, dislocation or intrinsic bone disease. There is mild narrowing and sclerosis at the sacroiliac joints bilaterally. There are also mild degenerative changes of both hip joints. IMPRESSION: No acute fracture or dislocation. Mild degenerative changes. L Knee x-ray: FINDINGS: Four views of the left knee demonstrate diffuse soft tissue swelling. There is mild osteoarthritic spurring at the medial and lateral compartments. There is diffuse osteopenia. Patellar spurring is noted. The lateral view is underexposed. A lateral view obtained as part of the same day series of the femur shows patellar spurring.. No fracture or subluxation is seen. No opaque foreign body noted. IMPRESSION: Diffuse osteopenia and osteoarthritis. Soft tissue swelling. No fracture seen.. Abd/pelvis CT: FINDINGS: Digital preliminary communication consultant radiograph shows left pleural effusion and cardiomegaly. Bowel gas pattern is unremarkable. On axial CT images left pleural effusion and pericardial effusion are evident. Left adrenal gland is normal. There is a essentially stable fat containing right adrenal myelolipoma 6.5 cm in greatest diameter again noted. This measured 5.9 cm in 2016. No renal lesion is seen on either side. There is some vascular calcification. There are large is benign and stable calcifications in the right lobe of the liver consistent with granulomas. No liver mass lesion is seen. No abnormality is noted in the gallbladder or the pancreas. Small and large bowel loops are unremarkable in the upper abdomen. Pelvic CT images demonstrate no uterine or urinary bladder abnormality. The rectum is somewhat distended with formed stool consistent with constipation. No free air or free fluid. No abdominal wall defect seen. Bone window settings show degenerative spondylosis changes in the lumbar spine. No fracture is seen. IMPRESSION: No acute abdominal or pelvic abnormality. stable findings in the liver right adrenal gland. New left pleural effusion and pericardial effusion. Left colonic diverticulosis without CT evidence of diverticulitis. Chest CT: FINDINGS: Preliminary digital communication consultant radiograph demonstrates evidence of left pleural effusion. Axial CT images confirm the presence of small to moderate left pleural effusion layering in the posterior aspect of the left hemithorax. There is partial collapse and air bronchograms are seen in the lingular segment of the left upper lobe. There are atelectatic changes with air bronchograms in the left lower lobe as well. No endobronchial disease is seen. No pulmonary parenchymal mass lesion is observed. There is also a small pericardial effusion which is a new finding. No hilar or mediastinal mass or adenopathy is seen. There is a 1.4 cm irregular mass in the left breast soft tissues. No axillary, internal mammary, or supraclavicular adenopathy is seen. There is a 7 mm noncalcified pulmonary nodule in the right upper lobe projecting on page 34 of 100 and series 204 of today's study. This is unchanged from the November 11, 2020 study no other pulmonary nodule is appreciated.0 there is a benign hemangioma in 1 of the lower thoracic vertebral bodies. No bony destructive lesion is appreciated. No rib or other fracture seen. IMPRESSION: Small to moderate left pleural effusion with atelectatic changes in the lingula and left lower lobe. Small pericardial effusion. These are new findings. 7 mm nodule in the right upper lobe of the lung unchanged from November 11, 2020. Not present in 2011.. 14 mm left breast mass. Further evaluation suggested to include diagnostic mammography and sonography of the left breast.] MICROBIOLOGY: Please see below. ASSESSMENT: 75 y/o W with chronic a-fib, copd, pulmonary htn, [place], chronic hypoxemia on 2L at home O2 at baseline, DM2 and chronic back pain who presents to the ED after suffering a mechanical fall and reporting constipation and found to be in liz CHF. . PLAN: 1. HFpEF exacerbation, improved - start Lasix 60mg PO QD - Will continue supplemental o2 titrated to 88-92%, currently at baseline 2L - 2L/24h fluid status, 2g sodium -strict I/Os and daily weights 2. A-fib - Cardiac marker panel unrevealing - continue eliquis - Continue metoprolol 50mg bid 3. Metabolic Alkalosis: resolved - Potentially mixed picture from fluid overload, constipation, hydrochlorothiazide - Held HCTZ 4. Constipation - No radiographic evidence of ileus or SBO - Patient had BM in the ED - milk of mag/colace 5. Potential COPD exacerbation - holding PRN albuterol for now d/t tachycardia - Continue spiriva - Continue home oxygen - Continue prednisone 40mg PO - Continue duonebs q6h 6. [place] - does not wear cpap, will monitor pulse ox 7. DM - sliding scale insulin, hypoglycemic protocol 8. chronic pain - continue at home oxycodone 9. Anxiety - continue valium 10. Breast mass - 1.4cm irregular mass noted in left breast incidentally on imaging. Patient should f/u promptly outpatient with PCP for breast US or mammogram 11. Pulmonary module - 7 mm noncalcified module noted in right upper lobe incidentally on imaging, unchanged from prior chest imaging in october 2020. Patient should f/u outpatient with PCP 12. DVT prophylaxis - eliquis Dispo: ARU screen placed. PT/OT ongoing. VS,Fishbone, I+O VS, Fishbone, I+O Laboratory Tests 01/16/21 06:33 Vital Signs Date Time Temp Pulse Resp B/P (MAP) Pulse Ox O2 Delivery O2 Flow Rate FiO2 01/16/21 06:40 97.5 99 22 126/84 (98) 92 Nasal Cannula 2.0 01/14/21 04:00 95 I&O- Last 24 Hours up to 6 AM 01/16/21 06:00 Intake Total 0 ml Output Total 250 ml Balance -250 ml YNES WINSTON MD January 16, 2021 08:42
[2021-01-16 14:00] VITALS: BP 111/69
[2021-01-16] MEDS: MOM 30ML SUSPENSION UDC PO PRN (20:47)
[2021-01-16 21:00] VITALS: O2SAT 96
[2021-01-16 22:00] VITALS: BP 108/69
[2021-01-17] MEDS ORDERED: SODIUM CHLORIDE NASAL 0.65% SPRAY BTL (OCEAN) PRN (01:05)
[2021-01-17] MEDS: oxyCODONE 5MG TAB PO PRN ×4 (01:48→21:35)
[2021-01-17] MEDS: ACETAMINOPHEN TAB 650MG DOSE (2X325MG) PO PRN ×4 (01:49→21:36)
[2021-01-17 06:00] VITALS: BP 131/78; O2SAT 93
[2021-01-17] MEDS: TIOTROPIUM INHALER/CAPSULE (SPIRIVA) INH SCH (07:10)
[2021-01-17] MEDS: IPRATROPIUM 0.5MG/ALBUTEROL 2.5MG INH SOL UD 3ML (DUONEB) NEB PRN ×2 (07:10→17:20)
[2021-01-17] MEDS: HumaLOG INSULIN (NovoLOG) PER UNIT SC SCH ×4 (07:30→20:16)
[2021-01-17 07:55] LABS: HEMATOCRIT 38.4 % (36.0-47.0); HEMOGLOBIN 11.7 g/dl (12.0-15.5); MEAN CORPUSCULAR HEMOGLOBIN 30.6 pg (27.0-33.0); MEAN CORPUSCULAR HGB CONC 30.5 g/dl (32.0-36.5); MEAN CORPUSCULAR VOLUME 100.5 fl (80.0-96.0); PLATELET COUNT, AUTOMATED 228 10^3/uL (150-450); RED BLOOD COUNT 3.82 10^6/uL (4.00-5.40); WHITE BLOOD COUNT 10.7 10^3/uL (4.0-10.0)
[2021-01-17 08:04] LABS: INR 1.88
[2021-01-17 08:50] LABS: CALCIUM LEVEL 8.7 MG/DL (8.8-10.2); CREATININE FOR GFR 1.22 MG/DL (0.55-1.30); GLOMERULAR FILTRATION RATE 45.5 (>39); MAGNESIUM LEVEL 2.1 MG/DL (1.8-2.4); POTASSIUM SERUM 3.5 MEQ/L (3.5-5.1)
[2021-01-17] MEDS: ASCORBIC ACID 500 MG TAB PO SCH (09:20)
[2021-01-17] MEDS: DOCUSATE SODIUM 100MG CAPSULE PO SCH ×2 (09:20→20:15)
[2021-01-17] MEDS: diazePAM 5MG TABLET PO SCH ×3 (09:20→20:15)
[2021-01-17] MEDS: POTASSIUM CHLORIDE 10 MEQ SR TABLET PO SCH (09:20)
[2021-01-17] MEDS: APIXABAN 5 MG TAB (ELIQUIS) PO SCH ×2 (09:21→20:16)
[2021-01-17] MEDS: VITAMIN E 400 INTERNATIONAL UNITS CAP PO SCH (09:21)
[2021-01-17] MEDS: VITAMIN D 1,000 INTERNATIONAL UNITS TABLET PO SCH (09:21)
[2021-01-17] MEDS: FUROSEMIDE 20 MG TAB PO SCH (09:21)
[2021-01-17] MEDS: MAGNESIUM OXIDE 400MG TAB (MAG-OX) PO SCH (09:21)
[2021-01-17] MEDS: METOPROLOL TART 50 MG TAB PO SCH ×2 (09:22→20:16)
--- NOTE | 2021-01-17 13:06 | IPNPDOC ---
Text Note Date of Service The patient was seen on 01/17/21. NOTE SUBJECTIVE: -No acute issues overnight -Weak and dizzy while working with PT this AM OBJECTIVE: VITAL SIGNS: Please see below GENERAL APPEARANCE: NAD, obese HEENT: NCAT, EOMI, MMM CARDIOVASCULAR: Irregularly irregular, no noted murmurs LUNGS: Diminished with scattered crackles at the bases ABDOMEN: Obese, tender LLQ to deep palpation, no rebound tenderness, normoactive sounds EXTREMITIES: Has LE edema bilaterally. Pulses intact. NEUROLOGICAL: Speech clear. A+Ox3. No focal deficits. PSYCHIATRIC: Mood and affect appear appropriate LABORATORY DATA: Reviewed Cr 10.09 IMAGING: Abd X-ray: FINDINGS: AP chest x-ray shows left pleural effusion. Cardiomegaly. Mitral annular calcification. Supine and cross-table lateral views of the abdomen show no evidence of free intraperitoneal air. Bowel gas pattern is unremarkable. Vascular calcification is noted. No fracture or acute bony abnormality is seen. IMPRESSION: No evidence of obstruction or free intraperitoneal air. No acute bony abnormality is seen.. Cervical Spine CT: FINDINGS: There is no evidence of cervical spine element fracture. No skull base fracture is seen. Cervical vertebral body heights are preserved. Alignment is normal. Facet joints are normally aligned bilaterally at each cervical level on multiplanar re-formations images. There is no evidence of intraspinal or paraspinal hematoma. No extra vertebral abnormality is seen. Degenerative disc disease is noted at C4-5, C5-6, and C6-7 unchanged from the comparison study. There are stable degenerative 2 mm spondylolisthesis ease noted at C4-C5 and at C7-T1. These are unchanged from the comparison study. Posterior osteophytic ridging is seen at C5-6 and C6-7. Osteoarthritic facet hypertrophy is noted bilaterally in the mid cervical spine as before. There is a left pleural effusion extending up to the apex of the left lung visible incidentally. This is a new finding. IMPRESSION: Advanced degenerative spondylosis changes with stable degenerative C4-5 and C7- T1 anterior subluxations. No traumatic bony abnormality. Left pleural effusion noted incidentally as a new finding.. Left Femur x-ray: FINDINGS: There is no evidence of acute fracture, dislocation, or intrinsic bone disease.There is mild superior patellar spurring. IMPRESSION: No fracture or dislocation. CT Head: FINDINGS: Bone window settings demonstrate an intact bony calvarium. There is no evidence of skull fracture or incidental bony calvarial lesion. The visualized paranasal sinuses appear clear. No intraorbital abnormality is seen. On soft tissue window setting images; the lateral, third, and fourth ventricles are normal in size and position. Jeffries-white differentiation pattern is normal above and below the tentorium. There are is no evidence of intracranial hemorrhage. No mass, edema, infarction, or midline shift is seen. No extra-axial fluid collection is appreciated. Vascular calcification is again noted fairly heavily involving the distal internal carotid arteries. There is mild generalized volume loss. Minimal small vessel changes. Findings unchanged from the 19 July 2020 prior study. IMPRESSION: No acute intracranial abnormality. Minimal volume loss and vascular calcification again noted. No skull fracture or intracranial injury seen.. Hip/Pelvis x-ray: FINDINGS: There is no evidence of acute fracture, dislocation or intrinsic bone disease. There is mild narrowing and sclerosis at the sacroiliac joints bilaterally. There are also mild degenerative changes of both hip joints. IMPRESSION: No acute fracture or dislocation. Mild degenerative changes. L Knee x-ray: FINDINGS: Four views of the left knee demonstrate diffuse soft tissue swelling. There is mild osteoarthritic spurring at the medial and lateral compartments. There is diffuse osteopenia. Patellar spurring is noted. The lateral view is underexposed. A lateral view obtained as part of the same day series of the femur shows patellar spur ring.. No fracture or subluxation is seen. No opaque foreign body noted. IMPRESSION: Diffuse osteopenia and osteoarthritis. Soft tissue swelling. No fracture seen.. Abd/pelvis CT: FINDINGS: Digital preliminary it security analyst radiograph shows left pleural effusion and cardiomegaly. Bowel gas pattern is unremarkable. On axial CT images left pleural effusion and pericardial effusion are evident. Left adrenal gland is normal. There is a essentially stable fat containing right adrenal myelolipoma 6.5 cm in greatest diameter again noted. This measured 5.9 cm in 2016. No renal lesion is seen on either side. There is some vascular calcification. There are large is benign and stable calcifications in the right lobe of the liver consistent with granulomas. No liver mass lesion is seen. No abnormality is noted in the gallbladder or the pancreas. Small and large bowel loops are unremarkable in the upper abdomen. Pelvic CT images demonstrate no uterine or urinary bladder abnormality. The re ctum is somewhat distended with formed stool consistent with constipation. No free air or free fluid. No abdominal wall defect seen. Bone window settings show degenerative spondylosis changes in the lumbar spine. No fracture is seen. IMPRESSION: No acute abdominal or pelvic abnormality. stable findings in the liver right adrenal gland. New left pleural effusion and pericardial effusion. Left colonic diverticulosis without CT evidence of diverticulitis. Chest CT: FINDINGS: Preliminary digital it security analyst radiograph demonstrates evidence of left pleural effusion. Axial CT images confirm the presence of small to moderate left pleural effusion layering in the posterior aspect of the left hemithorax. There is partial collapse and air bronchograms are seen in the lingular segment of the left upper lobe. There are atelectatic changes with air bronchograms in the left lower lobe as well. N o endobronchial disease is seen. No pulmonary parenchymal mass lesion is observed. There is also a small pericardial effusion which is a new finding. No hilar or mediastinal mass or adenopathy is seen. There is a 1.4 cm irregular mass in the left breast soft tissues. No axillary, internal mammary, or supraclavicular adenopathy is seen. There is a 7 mm noncalcified pulmonary nodule in the right upper lobe projecting on page 34 of 100 and series 204 of today's study. This is unchanged from the November 11, 2020 study no other pulmonary nodule is appreciated.0 there is a benign hemangioma in 1 of the lower thoracic vertebral bodies. No bony destructive lesion is appreciated. No rib or other fracture seen. IMPRESSION: Small to moderate left pleural effusion with atelectatic changes in the lingula and left lower lobe. Small pericardial effusion. These are new findings. 7 mm nodule in the right upper lobe of the lung unchanged from November 11, 2020. Not present in 2011.. 14 mm left breast mass. Further evaluation suggested to include diagnostic mammography and sonography of the left breast.] MICROBIOLOGY: Please see below. ASSESSMENT: 75 y/o W with chronic a-fib, copd, pulmonary htn, carrington, chronic hypoxemia on 2L at home O2 at baseline, DM2 and chronic back pain who presents to the ED after suffering a mechanical fall and reporting constipation and found to be in liz CHF. . PLAN: 1. HFpEF exacerbation, improved - Lasix 60mg PO QD - Will continue supplemental o2 titrated to 88-92%, currently at baseline 2L - 2L/24h fluid status, 2g sodium -strict I/Os and daily weights 2. A-fib - Cardiac marker panel unrevealing - continue eliquis - Continue metoprolol 50mg bid 3. Metabolic Alkalosis: resolved - Potentially mixed picture from fluid overload, constipation, hydrochlorothiazide - Held HCTZ 4. Constipation - No radiographic evidence of ileus or SBO - Patient had BM in the ED - milk of mag/colace 5. Potential COPD exacerbation - holding PRN albuterol for now d/t tachycardia - Continue spiriva - Continue home oxygen - Continue prednisone 40mg PO - Continue duonebs q6h 6. CARR[place] - does not wear cpap, will monitor pulse ox 7. DM - sliding scale insulin, hypoglycemic protocol 8. chronic pain - continue at home oxycodone 9. Anxiety - continue valium 10. Breast mass - 1.4cm irregular mass noted in left breast incidentally on imaging. Patient should f/u promptly outpatient with PCP for breast US or mammogram 11. Pulmonary module - 7 mm noncalcified module noted in right upper lobe incidentally on imaging, unchanged from prior chest imaging in october 2020. Patient should f/u outpatient with PCP 12. DVT prophylaxis - eliquis Dispo: ARU screen placed. PT/OT ongoing. VS,Fishbone, I+O VS, Fishbone, I+O Laboratory Tests 01/17/21 07:04 Vital Signs Date Time Temp Pulse Resp B/P (MAP) Pulse Ox O2 Delivery O2 Flow Rate FiO2 01/17/21 09:52 16 01/17/21 09:22 110 122/75 01/17/21 09:00 2.0 01/17/21 06:00 93 Nasal Cannula 01/17/21 06:00 97.5 01/14/21 04:00 95 I&O- Last 24 Hours up to 6 AM 01/17/21 06:00 Intake Total 300 ml Output Total 250 ml Balance 50 ml YNES WINSTON MD January 17, 2021 13:06
[2021-01-17] MEDS ORDERED: MIRALAX *UNIT DOSE* 17GM PACKET PO PRN (19:30)
[2021-01-17] MEDS: SENNA 8.6 MG TAB (SENOKOT) PO PRN (20:15)
[2021-01-17 22:00] VITALS: BP 127/79
[2021-01-17 22:36] VITALS: O2SAT 96
[2021-01-18 06:00] VITALS: BP 122/79
[2021-01-18 06:50] LABS: HEMATOCRIT 39.1 % (36.0-47.0); HEMOGLOBIN 11.7 g/dl (12.0-15.5); MEAN CORPUSCULAR HEMOGLOBIN 30.3 pg (27.0-33.0); MEAN CORPUSCULAR HGB CONC 29.9 g/dl (32.0-36.5); MEAN CORPUSCULAR VOLUME 101.3 fl (80.0-96.0); PLATELET COUNT, AUTOMATED 206 10^3/uL (150-450); RED BLOOD COUNT 3.86 10^6/uL (4.00-5.40); WHITE BLOOD COUNT 11.3 10^3/uL (4.0-10.0)
[2021-01-18 07:01] LABS: INR 1.79; PROTHROMBIN TIME 21.2 SECONDS (12.5-14.3)
[2021-01-18] MEDS: HumaLOG INSULIN (NovoLOG) PER UNIT SC SCH ×4 (07:30→21:00)
[2021-01-18 07:39] LABS: CALCIUM LEVEL 9.1 MG/DL (8.8-10.2); CREATININE FOR GFR 1.04 MG/DL (0.55-1.30); GLOMERULAR FILTRATION RATE 54.7 (>39); POTASSIUM SERUM 3.3 MEQ/L (3.5-5.1)
[2021-01-18] MEDS: TIOTROPIUM INHALER/CAPSULE (SPIRIVA) INH SCH (07:57)
[2021-01-18] MEDS: IPRATROPIUM 0.5MG/ALBUTEROL 2.5MG INH SOL UD 3ML (DUONEB) NEB PRN (07:58)
[2021-01-18] MEDS: METOPROLOL TART 50 MG TAB PO SCH ×2 (09:28→21:57)
[2021-01-18] MEDS: VITAMIN E 400 INTERNATIONAL UNITS CAP PO SCH (09:28)
[2021-01-18] MEDS: FUROSEMIDE 20 MG TAB PO SCH ×2 (09:29→16:52)
[2021-01-18] MEDS: diazePAM 5MG TABLET PO SCH ×3 (09:29→21:56)
[2021-01-18] MEDS: DOCUSATE SODIUM 100MG CAPSULE PO SCH ×2 (09:29→21:00)
[2021-01-18] MEDS: APIXABAN 5 MG TAB (ELIQUIS) PO SCH ×2 (09:29→21:56)
[2021-01-18] MEDS: POTASSIUM CHLORIDE 10 MEQ SR TABLET PO SCH (09:29)
[2021-01-18] MEDS: ASCORBIC ACID 500 MG TAB PO SCH (09:29)
[2021-01-18] MEDS: VITAMIN D 1,000 INTERNATIONAL UNITS TABLET PO SCH (09:29)
[2021-01-18] MEDS: MAGNESIUM OXIDE 400MG TAB (MAG-OX) PO SCH (09:29)
[2021-01-18] MEDS ORDERED: POTASSIUM CHLORIDE 10 MEQ SR TABLET PO ONE (09:55)
[2021-01-18] MEDS: oxyCODONE 5MG TAB PO PRN (11:05)
[2021-01-18] MEDS: ACETAMINOPHEN TAB 650MG DOSE (2X325MG) PO PRN ×2 (11:06→21:56)
--- NOTE | 2021-01-18 12:02 | IPNPDOC ---
Text Note Date of Service The patient was seen on 01/18/21. NOTE SUBJECTIVE: -No acute issues overnight OBJECTIVE: VITAL SIGNS: Please see below GENERAL APPEARANCE: NAD, obese HEENT: NCAT, EOMI, MMM CARDIOVASCULAR: Irregularly irregular, no noted murmurs LUNGS: Diminished with scattered crackles at the bases ABDOMEN: Obese, tender LLQ to deep palpation, no rebound tenderness, normoactive sounds EXTREMITIES: Has LE edema bilaterally. Pulses intact. NEUROLOGICAL: Speech clear. A+Ox3. No focal deficits. PSYCHIATRIC: Mood and affect appear appropriate LABORATORY DATA: Reviewed Cr 1.02 K 3.3 (repleted) IMAGING: Abd X-ray: FINDINGS: AP chest x-ray shows left pleural effusion. Cardiomegaly. Mitral annular calcification. Supine and cross-table lateral views of the abdomen show no evidence of free intraperitoneal air. Bowel gas pattern is unremarkable. Vascular calcification is noted. No fracture or acute bony abnormality is seen. IMPRESSION: No evidence of obstruction or free intraperitoneal air. No acute bony abnormality is seen.. Cervical Spine CT: FINDINGS: There is no evidence of cervical spine element fracture. No skull base fracture is seen. Cervical vertebral body heights are preserved. Alignment is normal. Facet joints are normally aligned bilaterally at each cervical level on multiplanar re-formations images. There is no evidence of intraspinal or paraspinal hematoma. No extra vertebral abnormality is seen. Degenerative disc disease is noted at C4-5, C5-6, and C6-7 unchanged from the comparison study. There are stable degenerative 2 mm spondylolisthesis ease noted at C4-C5 and at C7-T1. These are unchanged from the comparison study. Posterior osteophytic ridging is seen at C5-6 and C6-7. Osteoarthritic facet hypertrophy is noted bilaterally in the mid cervical spine as before. There is a left pleural effusion extending up to the apex of the left lung visible incidentally. This is a new finding. IMPRESSION: Advanced degenerative spondylosis changes with stable degenerative C4-5 and C7- T1 anterior subluxations. No traumatic bony abnormality. Left pleural effusion noted incidentally as a new finding.. Left Femur x-ray: FINDINGS: There is no evidence of acute fracture, dislocation, or intrinsic bone disease.There is mild superior patellar spurring. IMPRESSION: No fracture or dislocation. CT Head: FINDINGS: Bone window settings demonstrate an intact bony calvarium. There is no evidence of skull fracture or incidental bony calvarial lesion. The visualized paranasal sinuses appear clear. No intraorbital abnormality is seen. On soft tissue window setting images; the lateral, third, and fourth ventricles are normal in size and position. Jeffries-white differentiation pattern is normal above and below the tentorium. There are is no evidence of intracranial hemorrhage. No mass, edema, infarction, or midline shift is seen. No extra-axial fluid collection is appreciated. Vascular calcification is again noted fairly heavily involving the distal internal carotid arteries. There is mild generalized volume loss. Minimal small vessel changes. Findings unchanged from the 19 July 2020 prior study. IMPRESSION: No acute intracranial abnormality. Minimal volume loss and vascular calcification again noted. No skull fracture or intracranial injury seen.. Hip/Pelvis x-ray: FINDINGS: There is no evidence of acute fracture, dislocation or intrinsic bone disease. There is mild narrowing and sclerosis at the sacroiliac joints bilaterally. There are also mild degenerative changes of both hip joints. IMPRESSION: No acute fracture or dislocation. Mild degenerative changes. L Knee x-ray: FINDINGS: Four views of the left knee demonstrate diffuse soft tissue swelling. There is mild osteoarthritic spurring at the medial and lateral compartments. There is d iffuse osteopenia. Patellar spurring is noted. The lateral view is underexposed. A lateral view obtained as part of the same day series of the femur shows patellar spurring.. No fracture or subluxation is seen. No opaque foreign body noted. IMPRESSION: Diffuse osteopenia and osteoarthritis. Soft tissue swelling. No fracture seen.. Abd/pelvis CT: FINDINGS: Digital preliminary oil laboratory analyst radiograph shows left pleural effusion and cardiomegaly. Bowel gas pattern is unremarkable. On axial CT images left pleural effusion and pericardial effusion are evident. Left adrenal gland is normal. There is a essentially stable fat containing right adrenal myelolipoma 6.5 cm in greatest diameter again noted. This measured 5.9 cm in 2016. No renal lesion is seen on either side. There is some vascular calcification. There are large is benign and stable calcifications in the right lobe of the liver consistent with granulomas. No liver mass lesion is seen. No abnormality is noted in the gallbladder or the pancreas. Small and large bowel loops are unremarkable in the upper abdomen. Pelvic CT images demonstrate no uterine or urinary bladder abnormality. The rectum is somewhat distended with formed stool consistent with constipation. No free air or free fluid. No abdominal wall defect seen. Bone window settings show degenerative spondylosis changes in the lumbar spine. No fracture is seen. IMPRESSION: No acute abdominal or pelvic abnormality. stable findings in the liver right a drenal gland. New left pleural effusion and pericardial effusion. Left colonic diverticulosis without CT evidence of diverticulitis. Chest CT: FINDINGS: Preliminary digital oil laboratory analyst radiograph demonstrates evidence of left pleural effusion. Axial CT images confirm the presence of small to moderate left pleural effusion layering in the posterior aspect of the left hemithorax. There is partial col lapse and air bronchograms are seen in the lingular segment of the left upper lobe. There are atelectatic changes with air bronchograms in the left lower lobe as well. No endobronchial disease is seen. No pulmonary parenchymal mass lesion is observed. There is also a small pericardial effusion which is a new finding. No hilar or mediastinal mass or adenopathy is seen. There is a 1.4 cm irregular mass in the left breast soft tissues. No axillary, internal mammary, or supraclavicular adenopathy is seen. There is a 7 mm noncalcified pulmonary nodule in the right upper lobe projecting on page 34 of 100 and series 204 of today's study. This is unchanged from the November 11, 2020 study no other pulmonary nodule is appreciated.0 there is a benign hemangioma in 1 of the lower thoracic vertebral bodies. No bony destructive lesion is appreciated. No rib or other fracture seen. IMPRESSION: Small to moderate left pleural effusion with atelectatic changes in the lingula and left lower lobe. Small pericardial effusion. These are new findings. 7 mm nodule in the right upper lobe of the lung unchanged from November 11, 2020. Not present in 2011.. 14 mm left breast mass. Further evaluation suggested to include diagnostic mammography and sonography of the left breast.] MICROBIOLOGY: Please see below. ASSESSMENT: 75 y/o W with chronic a-fib, copd, pulmonary htn, carrington, chronic hypoxemia on 2L at home O2 at baseline, DM2 and chronic back pain who presents to the ED after suffering a mechanical fall and reporting constipation and found to be in liz CHF. . PLAN: 1. HFpEF exacerbation, improved - Increase Lasix 60mg PO QD to BID - Will continue supplemental o2 titrated to 88-92%, currently at baseline 2L - 2L/24h fluid status, 2g sodium -strict I/Os and daily weights 2. A-fib - Cardiac marker panel unrevealing - continue eliquis - Continue metoprolol 50mg bid 3. Metabolic Alkalosis: resolved - Potentially mixed picture from fluid overload, constipation, hydrochloro thiazide - Held HCTZ 4. Constipation - No radiographic evidence of ileus or SBO - Patient had BM in the ED - milk of mag/colace 5. Potential COPD exacerbation - holding PRN albuterol for now d/t tachycardia - Continue spiriva - Continue home oxygen - Continue prednisone 40mg PO - Continue duonebs q6h 6. C[place] - does not wear cpap, will monitor pulse ox 7. DM - sliding scale insulin, hypoglycemic protocol 8. chronic pain - continue at home oxycodone 9. Anxiety - continue valium 10. Breast mass - 1.4cm irregular mass noted in left breast incidentally on imaging. Patient should f/u promptly outpatient with PCP for breast US or mammogram 11. Pulmonary module - 7 mm noncalcified module noted in right upper lobe incidentally on imaging, unchanged from prior chest imaging in october 2020. Patient should f/u outpatient with PCP 12. DVT prophylaxis - eliquis Dispo: ARU screen placed. PT/OT ongoing. VS,Fishbone, I+O VS, Fishbone, I+O Laboratory Tests 01/18/21 06:27 Vital Signs Date Time Temp Pulse Resp B/P (MAP) Pulse Ox O2 Delivery O2 Flow Rate FiO2 01/18/21 09:28 89 121/78 01/18/21 06:00 98.7 19 96 Venturi Mask 12.0 35 I&O- Last 24 Hours up to 6 AM 01/18/21 06:00 Intake Total 200 ml Output Total 650 ml Balance -450 ml YNES WINSTON MD January 18, 2021 09:56
[2021-01-18 14:00] VITALS: BP 119/70
[2021-01-18 21:00] VITALS: O2SAT 92
[2021-01-18] MEDS: SENNA 8.6 MG TAB (SENOKOT) PO PRN (21:56)
[2021-01-18 22:00] VITALS: BP 118/74
[2021-01-19 06:00] VITALS: BP 120/75; O2SAT 92
[2021-01-19 06:34] LABS: HEMATOCRIT 39.6 % (36.0-47.0); HEMOGLOBIN 12.1 g/dl (12.0-15.5); MEAN CORPUSCULAR HEMOGLOBIN 31.3 pg (27.0-33.0); MEAN CORPUSCULAR HGB CONC 30.6 g/dl (32.0-36.5); MEAN CORPUSCULAR VOLUME 102.6 fl (80.0-96.0); PLATELET COUNT, AUTOMATED 212 10^3/uL (150-450); RED BLOOD COUNT 3.86 10^6/uL (4.00-5.40); WHITE BLOOD COUNT 11.4 10^3/uL (4.0-10.0)
[2021-01-19 06:44] LABS: INR 1.71; PROTHROMBIN TIME 20.4 SECONDS (12.5-14.3)
[2021-01-19 07:15] LABS: BLOOD UREA NITROGEN 26 MG/DL (7-18); CALCIUM LEVEL 9.3 MG/DL (8.8-10.2); CARBON DIOXIDE LEVEL 49 MEQ/L (21-32); CHLORIDE LEVEL 92 MEQ/L (98-107); CREATININE FOR GFR 0.93 MG/DL (0.55-1.30); GLOMERULAR FILTRATION RATE > 60.0 (>39); GLUCOSE, FASTING 119 MG/DL (70-100); MAGNESIUM LEVEL 1.8 MG/DL (1.8-2.4); NT-PRO BNP 3560 PG/ML (<450); POTASSIUM SERUM 3.2 MEQ/L (3.5-5.1); SODIUM LEVEL 141 MEQ/L (136-145)
[2021-01-19] MEDS: HumaLOG INSULIN (NovoLOG) PER UNIT SC SCH ×4 (07:30→20:27)
[2021-01-19] MEDS: TIOTROPIUM INHALER/CAPSULE (SPIRIVA) INH SCH (07:34)
[2021-01-19] MEDS ORDERED: KETOROLAC 30 MG/ML 1ML VIAL IV PRN (08:10)
[2021-01-19 08:33] VITALS: BP 125/79
--- NOTE | 2021-01-19 08:48 | IPNPDOC ---
Subjective Date Seen The patient was seen on 01/19/21. Subjective Chief Complaint/HPI Complains of Bilateral knee pain left worse than right. Reports she fell on her left side. Complains of abdominal pain more on the upper abdomen and the periumbilical region rather than the lower oxygen. She is on 8 L oxygen through venti mask with spo2 in 90% to 91%. She has a heating pad on her abdomen. Objective Physical Examination General Exam: Positive: Alert, Cooperative Eye Exam: Positive: PERRLA, Conjunctiva & lids normal, EOMI; Negative: Sclera icteric Neck Exam: Positive: Supple, JVD; Negative: thyromegaly Chest Exam: Positive: Normal air movement, Other (bilateral basal crackles. ) Heart Exam: Positive: Rate Normal, Regular Rhythm, Normal S1, Normal S2; Negative: Murmurs, Rubs Abdomen Exam: Positive: Normal bowel sounds, Soft, Tenderness (in the epigastric, RUQ and perumbilical region), Other (No guarding or rigidity) Extremity Exam: Positive: Edema, Tenderness (left knee with bruising); Negative: Clubbing, Cyanosis Assessment /Plan Assessment 75 y/o W with chronic a-fib, copd, pulmonary htn, carrington, chronic hypoxemia on 2L at home O2 at baseline, DM2 and chronic back pain who presents to the ED after suffering a mechanical fall on the left side and reporting constipation, abdominal pain and found to be in liz CHF. HFpEF exacerbation increased oxygen requirement Lasix 60mg PO QD to BID 1,8L/24h fluid status, 2g sodium strict I/Os and daily weights Bilateral Pleural effusion L> R due to CHF will get chest xray new may need tapping. Fall with trauma to left knee No fracture ultracet, toradol and oxycodone. Abdominal pain this seems like a chronic issues likely due to chronic constipation, ? gastritis Abd Xray on admission negative, CT abd no acute finding. Has diverticulosis and rectum loaded with stool. will give PPI, sucralfate, enema and bowel regimen. 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 Bicarb higher than baseline likely due to metabolic alkalosis from diuresis will get new ABG. spiriva, duonebs Chronic Constipation bowel regimen in pace Obesity/CARRINGTON untreated. DM sliding scale insulin, hypoglycemic protocol Chronic pain continue at home oxycodone Anxiety continue valium Breast mass 1.4cm irregular mass noted in left breast incidentally on imaging. Patient should f/u promptly outpatient with PCP for breast US or mammogram Pulmonary Nodule 7 mm noncalcified module noted in right upper lobe incidentally on imaging, unchanged from prior chest imaging in october 2020. Patient should f/u outpatient with PCP Cervical spondylosis and degenerative disc disease on oxycodone Dispo: ARU screen placed. PT/OT ongoing. Plan/VTE VTE Prophylaxis Ordered?: Yes VS, I&O, 24H, Fishbone Vital Signs/I&O Vital Signs Date Time Temp Pulse Resp B/P (MAP) Pulse Ox O2 Delivery O2 Flow Rate FiO2 01/19/21 06:00 97.5 88 18 120/75 (90) 92 Venturi Mask 8.0 31 I&O- Last 24 Hours up to 6 AM 01/19/21 06:00 Intake Total 100 ml Output Total 750 ml Balance -650 ml Laboratory Data 24H LABS Laboratory Tests 2 01/18/21 11:37: Bedside Glucose (Misc Panel) 177H 01/18/21 18:10: Bedside Glucose (Misc Panel) 141H 01/18/21 21:48: Bedside Glucose (Misc Panel) 127H 01/19/21 06:05: Nucleated Red Blood Cells % (auto) 0.0, Prothrombin Time 20.4H, Prothromb Time International Ratio 1.71, Anion Gap 0L, Glomerular Filtration Rate > 60.0, Calcium Level 9.3, Magnesium Level 1.8, ZH-Vtv-S-Type Natriuretic Peptide 3560H CBC/BMP Laboratory Tests 01/19/21 06:05 MADY OLEA MD January 19, 2021 08:48
--- NOTE | 2021-01-19 08:55 | REP ---
INDICATION: pleural efussion in CT chest, now increased SOB COMPARISON: 01/13/2021 as well as other prior exams. TECHNIQUE: Two views of the chest. FINDINGS: There is a moderate to large left pleural effusion which appears to have slightly increased since the prior study of 01/13/2021. The heart appears enlarged. The pulmonary vasculature is mildly prominent. There are degenerative changes of the spine. IMPRESSION: Moderate to large left pleural effusion has mildly increased since prior study of 01/13/2021. <Electronically signed by Stepan Jeffries > 01/19/21 0833
[2021-01-19 09:00] VITALS: O2SAT 92
[2021-01-19] MEDS ORDERED: PANTOPRAZOLE 40MG VIAL (C9113 PER 1) IV SCH (09:00)
[2021-01-19] MEDS: SENOKOT S TAB PO SCH ×2 (09:22→21:05)
[2021-01-19] MEDS: FUROSEMIDE 20 MG TAB PO SCH ×2 (09:22→14:00)
[2021-01-19] MEDS: APIXABAN 5 MG TAB (ELIQUIS) PO SCH (09:22)
[2021-01-19] MEDS: POTASSIUM CHLORIDE 10 MEQ SR TABLET PO SCH (09:23)
[2021-01-19] MEDS: MAGNESIUM OXIDE 400MG TAB (MAG-OX) PO SCH (09:23)
[2021-01-19] MEDS: METOPROLOL TART 50 MG TAB PO SCH ×2 (09:23→21:07)
[2021-01-19] MEDS: KETOROLAC 30 MG/ML 1ML VIAL IV SCH ×3 (09:24→21:06)
[2021-01-19] MEDS: PANTOPRAZOLE 40MG VIAL (C9113 PER 1) IV SCH ×2 (09:24→21:05)
[2021-01-19] MEDS ORDERED: FLEET ENEMA PR ONE (09:30)
[2021-01-19] MEDS: diazePAM 5MG TABLET PO SCH ×3 (09:41→21:05)
[2021-01-19] MEDS: ULTRACET TAB PO SCH ×3 (09:41→21:07)
[2021-01-19 09:51] LABS: ABG BASE EXCESS 19.3 (-2.0-2.0); ABG O2 SATURATION 92.7 % (95.0-99.0); ABG STANDARD HCO3 43.4 MEQ/L (22.0-26.0); ABG TOTAL CO2 49.2 MEQ/L (23.0-31.0); ABG pH (ARTERIAL) 7.449 UNITS (7.350-7.450)
[2021-01-19 09:57] LABS: ABG PARTIAL PRESSURE CO2 69.4 mmHg (35.0-45.0)
[2021-01-19] MEDS: SUCRALFATE SUSP 1GM/10ML UD PO SCH ×3 (11:57→21:05)
[2021-01-19] MEDS: MOM 30ML SUSPENSION UDC PO PRN (11:57)
[2021-01-19 14:00] VITALS: BP 98/58
[2021-01-19 15:34] VITALS: BP 115/69
[2021-01-19 21:00] VITALS: BP 118/71; O2SAT 93
[2021-01-20] MEDS: KETOROLAC 30 MG/ML 1ML VIAL IV SCH ×4 (03:00→21:31)
[2021-01-20] MEDS: FUROSEMIDE 20 MG TAB PO SCH ×2 (05:33→15:03)
[2021-01-20 06:00] VITALS: BP 120/73
[2021-01-20 06:54] LABS: HEMATOCRIT 40.4 % (36.0-47.0); HEMOGLOBIN 12.4 g/dl (12.0-15.5); MEAN CORPUSCULAR HEMOGLOBIN 31.6 pg (27.0-33.0); MEAN CORPUSCULAR HGB CONC 30.7 g/dl (32.0-36.5); MEAN CORPUSCULAR VOLUME 102.8 fl (80.0-96.0); PLATELET COUNT, AUTOMATED 217 10^3/uL (150-450); RED BLOOD COUNT 3.93 10^6/uL (4.00-5.40); WHITE BLOOD COUNT 9.8 10^3/uL (4.0-10.0)
[2021-01-20 07:03] LABS: INR 1.7; PROTHROMBIN TIME 20.4 SECONDS (12.5-14.3)
[2021-01-20 07:27] LABS: CALCIUM LEVEL 8.5 MG/DL (8.8-10.2); CREATININE FOR GFR 1.22 MG/DL (0.55-1.30); GLOMERULAR FILTRATION RATE 45.5 (>39); MAGNESIUM LEVEL 1.9 MG/DL (1.8-2.4); POTASSIUM SERUM 4.1 MEQ/L (3.5-5.1)
[2021-01-20] MEDS: HumaLOG INSULIN (NovoLOG) PER UNIT SC SCH ×4 (07:30→21:00)
[2021-01-20] MEDS: SUCRALFATE SUSP 1GM/10ML UD PO SCH ×4 (07:30→21:00)
[2021-01-20] MEDS: TIOTROPIUM INHALER/CAPSULE (SPIRIVA) INH SCH (07:54)
[2021-01-20 09:00] VITALS: O2SAT 90
[2021-01-20] MEDS: PANTOPRAZOLE 40MG VIAL (C9113 PER 1) IV SCH ×2 (09:31→21:31)
[2021-01-20] MEDS: MAGNESIUM OXIDE 400MG TAB (MAG-OX) PO SCH (09:31)
[2021-01-20] MEDS: SENOKOT S TAB PO SCH ×2 (09:32→21:30)
[2021-01-20] MEDS: METOPROLOL TART 50 MG TAB PO SCH ×2 (09:32→21:00)
[2021-01-20] MEDS: POTASSIUM CHLORIDE 10 MEQ SR TABLET PO SCH (09:32)
[2021-01-20] MEDS: diazePAM 5MG TABLET PO SCH ×3 (09:33→21:31)
[2021-01-20] MEDS: ULTRACET TAB PO SCH ×3 (09:33→21:30)
--- NOTE | 2021-01-20 12:18 | IPNPDOC ---
Subjective Date Seen The patient was seen on 01/20/21. Subjective Chief Complaint/HPI Still with SOB. Also complaints of pain all over her body. Also complains of persistent abdominal pain. Had several soft bowel movements yesterday. Objective Physical Examination General Exam: Positive: Alert, Cooperative Eye Exam: Positive: PERRLA, Conjunctiva & lids normal, EOMI; Negative: Sclera icteric Neck Exam: Positive: Supple, JVD; Negative: thyromegaly Chest Exam: Positive: Normal air movement, Other (bilateral basal crackles. ) Heart Exam: Positive: Rate Normal, Regular Rhythm, Normal S1, Normal S2; Negative: Murmurs, Rubs Abdomen Exam: Positive: Normal bowel sounds, Soft, Tenderness (in the epigastric, RUQ and perumbilical region), Other (No guarding or rigidity) Extremity Exam: Positive: Edema, Tenderness (left knee with bruising); Negative: Clubbing, Cyanosis Assessment /Plan Assessment 75 y/o W with chronic a-fib, copd, pulmonary htn, [place], chronic hypoxemia on 2L at home O2 at baseline, DM2 and chronic back pain who presents to the ED after suffering a mechanical fall on the left side and reporting constipation, abdominal pain and found to be in liz CHF. HFpEF exacerbation increased oxygen requirement Lasix 60mg PO BID 1,8L/24h fluid status, 2g sodium strict I/Os and daily weights Bilateral Pleural effusion L> R due to CHF planned for pleural tap on 01/21 Fall with trauma to left knee No fracture ultracet, toradol and oxycodone. Abdominal pain this seems like a chronic issues likely due to chronic constipation, ? gastritis Abd Xray on admission negative, CT abd no acute finding. Has diverticulosis and rectum loaded with stool. will give PPI, sucralfate, bowel regimen. She appears to be having multiple soft stools which i feel may be just bypassing the solid stool in rectum will try suppository. 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 Bicarb higher than baseline likely due to metabolic alkalosis from diuresis ABG Pco2 at 69 higher than baseline but the pH was normal. Continue spiriva, duonebs Chronic Constipation bowel regimen in pace Obesity/C[place] untreated. DM sliding scale insulin, hypoglycemic protocol Chronic Musculoskeletal pain Has full body pain for years, has OA in multiple joints and osteoporosis. continue at home oxycodone Generalized anxiety disorder. continue valium Breast mass 1.4cm irregular mass noted in left breast incidentally on imaging. Patient should f/u promptly outpatient with PCP for breast US or mammogram Pulmonary Nodule 7 mm noncalcified module noted in right upper lobe incidentally on imaging, unchanged from prior chest imaging in october 2020. Patient should f/u outpatient with PCP Cervical spondylosis and degenerative disc disease on oxycodone Plan/VTE VTE Prophylaxis Ordered?: Yes VS, I&O, 24H, Fishbone Vital Signs/I&O Vital Signs Date Time Temp Pulse Resp B/P (MAP) Pulse Ox O2 Delivery O2 Flow Rate FiO2 01/20/21 09:33 17 01/20/21 09:32 86 117/75 01/20/21 09:00 8.0 31 01/20/21 09:00 90 Venturi Mask 01/20/21 06:00 97.5 I&O- Last 24 Hours up to 6 AM 01/20/21 06:00 Intake Total 1180 ml Output Total 250 ml Balance 930 ml Laboratory Data 24H LABS Laboratory Tests 2 01/19/21 17:12: Bedside Glucose (Misc Panel) 110 01/19/21 20:24: Bedside Glucose (Misc Panel) 105 01/20/21 06:41: Nucleated Red Blood Cells % (auto) 0.0, Prothrombin Time 20.4H, Prothromb Time International Ratio 1.70, Anion Gap 2L, Glomerular Filtration Rate 45.5, Calcium Level 8.5L, Magnesium Level 1.9, KF-Byt-X-Type Natriuretic Peptide 3504H 01/20/21 11:29: Bedside Glucose (Misc Panel) 115H CBC/BMP Laboratory Tests 01/20/21 06:41 MADY OLEA MD January 20, 2021 12:18
[2021-01-20 14:00] VITALS: BP 111/71
[2021-01-20 20:30] VITALS: BP 111/69
[2021-01-21] VITALS (8 sets, daily range): BP systolic 110–123; BP diastolic 65–75; O2SAT 90
[2021-01-21] MEDS: KETOROLAC 30 MG/ML 1ML VIAL IV SCH ×4 (02:27→21:19)
[2021-01-21] MEDS: oxyCODONE 5MG TAB PO PRN (02:27)
[2021-01-21] MEDS: FUROSEMIDE 20 MG TAB PO SCH ×2 (05:51→14:35)
[2021-01-21] MEDS: HumaLOG INSULIN (NovoLOG) PER UNIT SC SCH ×4 (07:30→21:00)
[2021-01-21 07:31] LABS: BASO % 0.3 % (0.0-1.0); EOS # 0.4 10^3/uL (0.0-0.5); EOS % 3.2 % (0.0-3.0); HEMATOCRIT 39.6 % (36.0-47.0); HEMOGLOBIN 11.8 g/dl (12.0-15.5); LYMPH # 1.1 10^3/uL (1.5-5.0); LYMPH % 8.9 % (24.0-44.0); MEAN CORPUSCULAR HEMOGLOBIN 30.3 pg (27.0-33.0); MEAN CORPUSCULAR HGB CONC 29.8 g/dl (32.0-36.5); MEAN CORPUSCULAR VOLUME 101.8 fl (80.0-96.0); MONO % 8.4 % (2.0-8.0); NEUTROPHILS # 9.4 10^3/uL (1.5-8.5); NEUTROPHILS % 78.7 % (36.0-66.0); PLATELET COUNT, AUTOMATED 234 10^3/uL (150-450); RED BLOOD COUNT 3.89 10^6/uL (4.00-5.40); WHITE BLOOD COUNT 11.9 10^3/uL (4.0-10.0)
[2021-01-21] MEDS: TIOTROPIUM INHALER/CAPSULE (SPIRIVA) INH SCH (07:48)
[2021-01-21 08:33] LABS: CREATININE FOR GFR 1.38 MG/DL (0.55-1.30); GLOMERULAR FILTRATION RATE 39.5 (>39); POTASSIUM SERUM 4.5 MEQ/L (3.5-5.1)
[2021-01-21] MEDS: SUCRALFATE SUSP 1GM/10ML UD PO SCH ×4 (08:37→21:22)
[2021-01-21] MEDS: PANTOPRAZOLE 40MG VIAL (C9113 PER 1) IV SCH ×2 (09:13→21:19)
[2021-01-21] MEDS: ULTRACET TAB PO SCH ×3 (09:14→21:20)
[2021-01-21] MEDS: diazePAM 5MG TABLET PO SCH ×3 (09:14→21:22)
[2021-01-21] MEDS: MAGNESIUM OXIDE 400MG TAB (MAG-OX) PO SCH (09:52)
[2021-01-21] MEDS: POTASSIUM CHLORIDE 10 MEQ SR TABLET PO SCH (09:52)
[2021-01-21] MEDS: METOPROLOL TART 50 MG TAB PO SCH ×2 (09:52→21:00)
[2021-01-21] MEDS: SENOKOT S TAB PO SCH ×2 (09:53→21:00)
--- NOTE | 2021-01-21 10:59 | IPNPDOC ---
Subjective Date Seen The patient was seen on 01/21/21. Subjective Chief Complaint/HPI Continues to have abdominal pain and is using a heating pad in her abdomen. Objective Physical Examination General Exam: Positive: Alert, Cooperative, No Acute Distress Eye Exam: Positive: PERRLA, Conjunctiva & lids normal, EOMI; Negative: Sclera icteric Neck Exam: Positive: Supple, JVD; Negative: thyromegaly Chest Exam: Positive: Normal air movement, Other (bilateral basal crackles. ) Heart Exam: Positive: Rate Normal, Regular Rhythm, Normal S1, Normal S2; Negative: Murmurs, Rubs Abdomen Exam: Positive: BS Hyperactive, Soft, Tenderness (in the epigastric, LUQ, rUQ, and perumbilical region), Other (No guarding or rigidity) Extremity Exam: Positive: Edema (trace), Tenderness (left knee with bruising); Negative: Clubbing, Cyanosis Assessment /Plan Assessment 75 y/o W with chronic a-fib, copd, pulmonary htn, [place], chronic hypoxemia on 2L at home O2 at baseline, DM2 and chronic back pain who presents to the ED after suffering a mechanical fall on the left side and reporting constipation, abdominal pain and found to be in liz CHF. HFpEF exacerbation increased oxygen requirement Lasix 60mg PO BID 1,8L/24h fluid status, 2g sodium strict I/Os and daily weights Bilateral Pleural effusion L> R due to CHF planned for pleural tap on 01/21 Fall with trauma to left knee No fracture ultracet, toradol and oxycodone. Abdominal pain this seems like a chronic issues likely due to chronic constipation, ? gastritis Abd Xray on admission negative, CT abd no acute finding. Has diverticulosis and rectum loaded with stool. will give PPI, sucralfate, bowel regimen. She appears to be having multiple soft stools which i feel may be just bypassing the solid stool in rectum will try suppository. CT abdomen : Mild dilatation of the common bile duct at 10 mm stable, Mild left- sided colonic diverticulosis, Enlarging right adrenal myelolipoma now measuring up to 6.4 cm. Fatty liver, calcified granulomas in right lobe of liver. Rectum with some stool. 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 Bicarb higher than baseline likely due to metabolic alkalosis from diuresis ABG Pco2 at 69 higher than baseline but the pH was normal. Continue spiriva, duonebs Chronic Constipation bowel regimen in pace Obesity/[place] untreated. DM sliding scale insulin, hypoglycemic protocol Chronic Musculoskeletal pain Has full body pain for years, has OA in multiple joints and osteoporosis. continue at home oxycodone Generalized anxiety disorder. continue valium Breast mass 1.4cm irregular mass noted in left breast incidentally on imaging. Patient should f/u promptly outpatient with PCP for breast US or mammogram Pulmonary Nodule 7 mm noncalcified module noted in right upper lobe incidentally on imaging, unchanged from prior chest imaging in October 2020. Patient should f/u outpatient with PCP Cervical spondylosis and degenerative disc disease on oxycodone Plan/VTE VTE Prophylaxis Ordered?: Yes VS, I&O, 24H, Fishbone Vital Signs/I&O Vital Signs Date Time Temp Pulse Resp B/P (MAP) Pulse Ox O2 Delivery O2 Flow Rate FiO2 01/21/21 09:52 97 120/75 01/21/21 09:14 16 01/21/21 08:45 98.0 92 Venturi Mask 8.0 31 I&O- Last 24 Hours up to 6 AM 01/21/21 06:00 Intake Total 300 ml Output Total 0 ml Balance 300 ml Laboratory Data 24H LABS Laboratory Tests 2 01/20/21 11:29: Bedside Glucose (Misc Panel) 115H 01/20/21 17:22: Bedside Glucose (Misc Panel) 98 01/20/21 21:29: Bedside Glucose (Misc Panel) 100 01/21/21 07:09: Immature Granulocyte % (Auto) 0.5, Neutrophils (%) (Auto) 78.7H, Lymphocytes (%) (Auto) 8.9L, Monocytes (%) (Auto) 8.4H, Eosinophils (%) (Auto) 3.2H, Basophils (%) (Auto) 0.3, Neutrophils # (Auto) 9.4H, Lymphocytes # (Auto) 1.1L, Monocytes # (Auto) 1.0H, Eosinophils # (Auto) 0.4, Basophils # (Auto) 0.0, Nucleated Red Blood Cells % (auto) 0.0, Anion Gap 7L, Glomerular Filtration Rate 39.5, Calcium Level 9.0 CBC/BMP Laboratory Tests 01/21/21 07:09 MADY OLEA MD January 21, 2021 10:59
[2021-01-21] MEDS ORDERED: BISACODYL 10 MG SUPP PR ONE (11:30)
[2021-01-21] MEDS ORDERED: LIDOCAINE 1% MDV 20ML VIAL As Ordered ONE (14:29)
--- NOTE | 2021-01-21 15:58 | REP ---
INDICATION: post thora, 2 view. COMPARISON: 01/19/2021. TECHNIQUE: Two views chest performed following left thoracentesis. FINDINGS: There is no pneumothorax. There is significant decrease in the amount of left pleural fluid, with mild residual pleural fluid/thickening. There is mild patchy parenchymal opacity in the left base. Heart appears enlarged. There is calcification of the thoracic aorta. IMPRESSION: No pneumothorax status post left thoracentesis. Significant decrease in the amount of left pleural fluid. <Electronically signed by Stepan Jeffries > 01/21/21 [id number]
--- NOTE | 2021-01-21 17:16 | REP ---
INDICATION: left pleural efussion, therapeutic, diagnostic. COMPARISON: None. TECHNIQUE: The procedure was performed under the direct supervision of Dr. Jeffries. The risks and benefits of the procedure were explained to the patient and informed consent was obtained. The left pleural effusion was localized using ultrasound guidance. The skin was prepped and draped in a sterile fashion. 1% lidocaine was used as a local anesthetic. An 8 [place] multi side hole catheter was inserted using trocar technique. 765 cc of yellow fluid was withdrawn and sent to the lab for analysis. The patient tolerated the procedure well and there were no immediate complications. After the appropriate amount to monitor convalescence the patient was discharged from the department. FINDINGS: None IMPRESSION: Ultrasound-guided left thoracentesis yielding 765 cc of yellow fluid. <Electronically signed by Yaniv Kay > 01/21/21 1618 <Electronically signed by Stepan Jeffries > 01/21/21 1718
[2021-01-22] MEDS: KETOROLAC 30 MG/ML 1ML VIAL IV SCH ×2 (03:47→08:29)
[2021-01-22 05:19] VITALS: BP 109/68
[2021-01-22] MEDS: oxyCODONE 5MG TAB PO PRN (05:45)
[2021-01-22 05:46] VITALS: O2SAT 92
[2021-01-22] MEDS: FUROSEMIDE 20 MG TAB PO SCH (05:46)
[2021-01-22 05:52] LABS: BASO % 0.4 % (0.0-1.0); EOS # 0.5 10^3/uL (0.0-0.5); HEMATOCRIT 38.8 % (36.0-47.0); HEMOGLOBIN 11.5 g/dl (12.0-15.5); LYMPH # 1.3 10^3/uL (1.5-5.0); MEAN CORPUSCULAR HEMOGLOBIN 30.2 pg (27.0-33.0); MEAN CORPUSCULAR HGB CONC 29.6 g/dl (32.0-36.5); MEAN CORPUSCULAR VOLUME 101.8 fl (80.0-96.0); MONO % 9.6 % (2.0-8.0); NEUTROPHILS # 7.4 10^3/uL (1.5-8.5); NEUTROPHILS % 71.6 % (36.0-66.0); PLATELET COUNT, AUTOMATED 216 10^3/uL (150-450); RED BLOOD COUNT 3.81 10^6/uL (4.00-5.40); WHITE BLOOD COUNT 10.3 10^3/uL (4.0-10.0)
[2021-01-22 06:49] LABS: BLOOD UREA NITROGEN 34 MG/DL (7-18); CALCIUM LEVEL 8.5 MG/DL (8.8-10.2); CARBON DIOXIDE LEVEL 48 MEQ/L (21-32); CHLORIDE LEVEL 95 MEQ/L (98-107); GLOMERULAR FILTRATION RATE 33.3 (>39); GLUCOSE, FASTING 77 MG/DL (70-100); POTASSIUM SERUM 4.7 MEQ/L (3.5-5.1); SODIUM LEVEL 140 MEQ/L (136-145)
[2021-01-22] MEDS: HumaLOG INSULIN (NovoLOG) PER UNIT SC SCH ×4 (07:30→21:00)
[2021-01-22] MEDS: SUCRALFATE SUSP 1GM/10ML UD PO SCH ×4 (08:28→21:44)
[2021-01-22] MEDS: diazePAM 5MG TABLET PO SCH ×3 (08:29→21:53)
[2021-01-22] MEDS: SENOKOT S TAB PO SCH ×2 (08:29→21:44)
[2021-01-22] MEDS: MAGNESIUM OXIDE 400MG TAB (MAG-OX) PO SCH (08:29)
[2021-01-22] MEDS: PANTOPRAZOLE 40MG VIAL (C9113 PER 1) IV SCH ×2 (08:29→21:54)
[2021-01-22] MEDS: METOPROLOL TART 50 MG TAB PO SCH ×2 (08:36→21:53)
[2021-01-22] MEDS: ULTRACET TAB PO SCH ×3 (08:38→21:47)
[2021-01-22] MEDS: APIXABAN 5 MG TAB (ELIQUIS) PO SCH ×2 (09:30→21:53)
[2021-01-22] MEDS: POTASSIUM CHLORIDE 10 MEQ SR TABLET PO SCH (09:31)
--- NOTE | 2021-01-22 10:07 | IPNPDOC ---
Subjective Date Seen The patient was seen on 01/22/21. Subjective Chief Complaint/HPI SOB is better. will change to nasal canula. Continues to have abdominal pain still using heating pad on the abdomen which she says makes it better. Objective Physical Examination General Exam: Positive: Alert, Cooperative, No Acute Distress Eye Exam: Positive: PERRLA, Conjunctiva & lids normal, EOMI; Negative: Sclera icteric Neck Exam: Positive: Supple, JVD; Negative: thyromegaly Chest Exam: Positive: Normal air movement, Other (bilateral basal crackles. ) Heart Exam: Positive: Rate Normal, Regular Rhythm, Normal S1, Normal S2; Negative: Murmurs, Rubs Abdomen Exam: Positive: BS Hyperactive, Soft, Tenderness (in the epigastric, LUQ, rUQ, and perumbilical region), Other (No guarding or rigidity) Extremity Exam: Positive: Edema (trace), Tenderness (left knee with bruising); Negative: Clubbing, Cyanosis Assessment /Plan Assessment 75 y/o W with chronic a-fib, copd, pulmonary htn, [place], chronic hypoxemia on 2L at home O2 at baseline, DM2 and chronic back pain who presents to the ED after suffering a mechanical fall on the left side and reporting constipation, abdominal pain and found to be in liz CHF. HFpEF exacerbation increased oxygen requirement Lasix 1,8L/24h fluid status, 2g sodium strict I/Os and daily weights Bilateral Pleural effusion L> R due to CHF Left tapped 5/6 Pleural studies sent. Fall with trauma to left knee No fracture ultracet, toradol and oxycodone. Abdominal pain this seems like a chronic issues likely due to chronic constipation, ? gastritis Abd Xray on admission negative, CT abd no acute finding. Has diverticulosis and rectum loaded with stool. will give PPI, sucralfate, bowel regimen. She appears to be having multiple soft stools which i feel may be just bypassing the solid stool in rectum will try suppository. CT abdomen : Mild dilatation of the common bile duct at 10 mm stable, Mild left- sided colonic diverticulosis, Enlarging right adrenal myelolipoma now measuring up to 6.4 cm. Fatty liver, calcified granulomas in right lobe of liver. Rectum with some stool. 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 Bicarb higher than baseline likely due to metabolic alkalosis from diuresis ABG Pco2 at 69 higher than baseline but the pH was normal. Continue spiriva, duonebs Chronic Constipation bowel regimen in pace Obesity/[place] untreated. DM sliding scale insulin, hypoglycemic protocol Chronic Musculoskeletal pain Has full body pain for years, has OA in multiple joints and osteoporosis. continue at home oxycodone Generalized anxiety disorder. continue valium Breast mass 1.4cm irregular mass noted in left breast incidentally on imaging. Patient should f/u promptly outpatient with PCP for breast US or mammogram Pulmonary Nodule 7 mm noncalcified module noted in right upper lobe incidentally on imaging, unchanged from prior chest imaging in October 2020. Patient should f/u outpatient with PCP Cervical spondylosis and degenerative disc disease on oxycodone Dispo: ARU Plan/VTE VTE Prophylaxis Ordered?: Yes VS, I&O, 24H, Fishbone Vital Signs/I&O Vital Signs Date Time Temp Pulse Resp B/P (MAP) Pulse Ox O2 Delivery O2 Flow Rate FiO2 01/22/21 08:38 18 01/22/21 08:36 91 108/68 01/22/21 06:15 Venturi Mask 31 01/22/21 05:46 92 8.0 01/22/21 05:19 98.6 I&O- Last 24 Hours up to 6 AM 01/22/21 06:00 Intake Total 1020 ml Output Total 0 ml Balance 1020 ml Laboratory Data 24H LABS Laboratory Tests 2 01/21/21 11:48: Bedside Glucose (Misc Panel) 126H 01/21/21 16:36: Bedside Glucose (Misc Panel) 65L 01/21/21 20:06: Bedside Glucose (Misc Panel) 119H 01/22/21 05:23: Immature Granulocyte % (Auto) 0.4, Neutrophils (%) (Auto) 71.6H, Lymphocytes (%) (Auto) 13.0L, Monocytes (%) (Auto) 9.6H, Eosinophils (%) (Auto) 5.0H, Basophils (%) (Auto) 0.4, Neutrophils # (Auto) 7.4, Lymphocytes # (Auto) 1.3L, Monocytes # (Auto) 1.0H, Eosinophils # (Auto) 0.5, Basophils # (Auto) 0.0, Nucleated Red Blood Cells % (auto) 0.0, Anion Gap , Glomerular Filtration Rate 33.3L, Calcium Level 8.5L CBC/BMP Laboratory Tests 01/22/21 05:23 MADY OLEA MD January 22, 2021 10:06
[2021-01-22 10:26] LABS: PH BODY FLUID 7.767 UNITS (NOT ESTABLISHED); SOURCE, BODY FLUID pH PLEURAL
[2021-01-22 10:56] LABS: APPEARANCE, BODY FLUID CLEAR (CLEAR); PLEURAL FL COLOR YELLOW (COLORLESS); SOURCE, BODY FLUID PLEURAL
[2021-01-22 11:19] LABS: AMYLASE, BODY FLUID 61 U/L (NOT ESTABLISHED); LDH, BODY FLUID 77 U/L (NOT ESTABLISHED); SOURCE, BODY FLUID AMYLASE PLEURAL; SOURCE, BODY FLUID GLUCOSE PLEURAL; SOURCE, BODY FLUID LDH PLEURAL; SOURCE, BODY FLUID TOT PROTEIN PLEURAL; TOTAL PROTEIN, BODY FLUID 2.2 G/DL (NOT ESTABLISHED)
[2021-01-22] MEDS: TIOTROPIUM INHALER/CAPSULE (SPIRIVA) INH SCH (11:28)
[2021-01-22 11:33] VITALS: O2SAT 96
[2021-01-22 14:08] VITALS: BP 111/73
[2021-01-22] MEDS ORDERED: KETOROLAC 30 MG/ML 1ML VIAL IV PRN (15:25)
[2021-01-22 20:00] VITALS: O2SAT 97
[2021-01-22 22:00] VITALS: BP 115/72
[2021-01-23 04:06] VITALS: O2SAT 96
[2021-01-23 06:00] VITALS: BP 120/73; O2SAT 96
[2021-01-23 06:05] LABS: BASO # 0.1 10^3/uL (0.0-0.2); BASO % 0.5 % (0.0-1.0); EOS # 0.6 10^3/uL (0.0-0.5); EOS % 5.9 % (0.0-3.0); HEMATOCRIT 36.8 % (36.0-47.0); HEMOGLOBIN 11.1 g/dl (12.0-15.5); LYMPH # 1.5 10^3/uL (1.5-5.0); LYMPH % 13.7 % (24.0-44.0); MEAN CORPUSCULAR HGB CONC 30.2 g/dl (32.0-36.5); MEAN CORPUSCULAR VOLUME 102.8 fl (80.0-96.0); MONO # 1.1 10^3/uL (0.0-0.8); MONO % 10.5 % (2.0-8.0); NEUTROPHILS # 7.4 10^3/uL (1.5-8.5); NEUTROPHILS % 68.9 % (36.0-66.0); PLATELET COUNT, AUTOMATED 199 10^3/uL (150-450); RED BLOOD COUNT 3.58 10^6/uL (4.00-5.40); WHITE BLOOD COUNT 10.8 10^3/uL (4.0-10.0)
[2021-01-23 06:58] LABS: CALCIUM LEVEL 8.7 MG/DL (8.8-10.2); CREATININE FOR GFR 1.59 MG/DL (0.55-1.30); GLOMERULAR FILTRATION RATE 33.5 (>39)
[2021-01-23] MEDS: HumaLOG INSULIN (NovoLOG) PER UNIT SC SCH ×4 (07:30→21:00)
[2021-01-23] MEDS: SUCRALFATE SUSP 1GM/10ML UD PO SCH ×4 (07:30→21:00)
[2021-01-23] MEDS: METOPROLOL TART 50 MG TAB PO SCH ×2 (09:00→21:00)
[2021-01-23] MEDS: diazePAM 5MG TABLET PO SCH ×3 (09:20→20:59)
[2021-01-23] MEDS: PANTOPRAZOLE 40MG VIAL (C9113 PER 1) IV SCH ×2 (09:20→21:01)
[2021-01-23] MEDS: ULTRACET TAB PO SCH ×3 (09:21→20:59)
[2021-01-23] MEDS: SENOKOT S TAB PO SCH ×2 (09:45→21:00)
[2021-01-23] MEDS: MAGNESIUM OXIDE 400MG TAB (MAG-OX) PO SCH (09:46)
--- NOTE | 2021-01-23 10:42 | IPNPDOC ---
Subjective Date Seen The patient was seen on 01/23/21. Subjective Chief Complaint/HPI continues to have periumbilical abdominal pain extending to both the lumber regions, poor appetite, SOB is better. SHe is back on her nasal cannula oxygen. Objective Physical Examination General Exam: Positive: Alert, Cooperative, No Acute Distress Eye Exam: Positive: PERRLA, Conjunctiva & lids normal, EOMI; Negative: Sclera icteric Neck Exam: Positive: Supple, JVD; Negative: thyromegaly Chest Exam: Positive: Normal air movement, Other (bilateral basal crackles. ) Heart Exam: Positive: Rate Normal, Regular Rhythm, Normal S1, Normal S2; Negative: Murmurs, Rubs Abdomen Exam: Positive: BS Hyperactive, Soft, Tenderness (in the periumbilical region and the back), Other (No guarding or rigidity) Extremity Exam: Positive: Edema (trace), Tenderness (left knee with bruising); Negative: Clubbing, Cyanosis Assessment /Plan Assessment 75 y/o W with chronic a-fib, copd, pulmonary htn, [place], chronic hypoxemia on 2L at home O2 at baseline, DM2 and chronic back pain who presents to the ED after suffering a mechanical fall on the left side and reporting constipation, abdominal pain and found to be in liz CHF. HFpEF exacerbation increased oxygen requirement Lasix 1,8L/24h fluid status, 2g sodium strict I/Os and daily weights Bilateral Pleural effusion L> R due to CHF Left tapped 5/6 Pleural studies transudative, N infection. likely from CHF. cytology pending. Fall with trauma to left knee No fracture ultracet, toradol and oxycodone. Abdominal pain this seems like a chronic issue going on for a year or more. ? gastritis, ? chronic pancreatitis and likely may have had constipation form chronic opiod use. I reviewed her CT abdomen with contrast from oct 2020: Shows pancreatic atrophy, fatty liver with chronic calcified granulomas, mild diverticulosis in the descending and sigmoid colon, L adrenal angiomyolipoma. Vasculature showed atherosclerosis but no significant stenosis any where. No lymphadenopathy or ascites. CT abdomen this admission without contrast: Mild dilatation of the common bile duct at 10 mm stable, Mild left-sided colonic diverticulosis, Enlarging right adrenal myelolipoma now measuring up to 6.4 cm. Fatty liver, calcified granulomas in right lobe of liver. Rectum with some stool. Discussed with Mary. If does not improve with current treatment he would see her next week to see if she need EGD/ Coloscopy as inpatient. Continue PPI, sucralfate, added Creon , continue bowel regimen. 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 Bicarb higher than baseline likely due to metabolic alkalosis from diuresis ABG Pco2 at 69 higher than baseline but the pH was normal. Continue spiriva, duonebs Chronic Constipation bowel regimen in pace Obesity/LEANNE untreated. DM sliding scale insulin, hypoglycemic protocol Chronic Musculoskeletal pain Has full body pain for years, has OA in multiple joints and osteoporosis. continue at home oxycodone Generalized anxiety disorder. continue valium Breast mass 1.4cm irregular mass noted in left breast incidentally on imaging. Patient should f/u promptly outpatient with PCP for breast US or mammogram Pulmonary Nodule 7 mm noncalcified module noted in right upper lobe incidentally on imaging, unchanged from prior chest imaging in October 2020. Patient should f/u outpatient with PCP Cervical spondylosis and degenerative disc disease on oxycodone Dispo: ARU Plan/VTE VTE Prophylaxis Ordered?: Yes VS, I&O, 24H, Fishbone Vital Signs/I&O Vital Signs Date Time Temp Pulse Resp B/P (MAP) Pulse Ox O2 Delivery O2 Flow Rate FiO2 01/23/21 09:21 19 01/23/21 09:00 2.0 01/23/21 09:00 80 97/67 01/23/21 06:00 97.7 96 Nasal Cannula 01/22/21 08:30 31 I&O- Last 24 Hours up to 6 AM 01/23/21 06:00 Intake Total 570 ml Output Total 525 ml Balance 45 ml Laboratory Data 24H LABS Laboratory Tests 2 01/22/21 11:58: Bedside Glucose (Misc Panel) 113H 01/22/21 17:19: Bedside Glucose (Misc Panel) 98 01/22/21 21:32: Bedside Glucose (Misc Panel) 113H 01/23/21 05:36: Immature Granulocyte % (Auto) 0.5, Neutrophils (%) (Auto) 68.9H, Lymphocytes (%) (Auto) 13.7L, Monocytes (%) (Auto) 10.5H, Eosinophils (%) (Auto) 5.9H, Basophils (%) (Auto) 0.5, Neutrophils # (Auto) 7.4, Lymphocytes # (Auto) 1.5, Monocytes # (Auto) 1.1H, Eosinophils # (Auto) 0.6H, Basophils # (Auto) 0.1, Nucleated Red Blood Cells % (auto) 0.0, Anion Gap 1L, Glomerular Filtration Rate 33.5L, C alcium Level 8.7L CBC/BMP Laboratory Tests 01/23/21 05:36 Microbiology Microbiology 01/21/21 Acid Fast Stain, Received Pending 01/21/21 Mycobacterial Culture, Received Pending 01/21/21 Fungal Smear, Received Pending 01/21/21 Fungal Culture, Received Pending 01/21/21 Gram Stain - Final, Resulted 01/21/21 Body Fluid Culture, Resulted Pending MADY OLEA MD January 23, 2021 10:41
[2021-01-23] MEDS: MIRALAX *UNIT DOSE* 17GM PACKET PO SCH (11:22)
[2021-01-23] MEDS: TIOTROPIUM INHALER/CAPSULE (SPIRIVA) INH SCH (11:59)
[2021-01-23] MEDS: CREON-24 CAPSULE PO SCH ×2 (13:34→17:02)
[2021-01-23 14:00] VITALS: BP 103/63
[2021-01-23 20:48] VITALS: BP 98/59
[2021-01-24] MEDS: oxyCODONE 5MG TAB PO PRN ×3 (00:16→20:43)
[2021-01-24 05:56] LABS: BASO # 0.1 10^3/uL (0.0-0.2); BASO % 0.6 % (0.0-1.0); EOS # 0.5 10^3/uL (0.0-0.5); EOS % 5.4 % (0.0-3.0); HEMATOCRIT 38.1 % (36.0-47.0); HEMOGLOBIN 11.6 g/dl (12.0-15.5); LYMPH # 1.4 10^3/uL (1.5-5.0); LYMPH % 15.1 % (24.0-44.0); MEAN CORPUSCULAR HEMOGLOBIN 30.9 pg (27.0-33.0); MEAN CORPUSCULAR HGB CONC 30.4 g/dl (32.0-36.5); MEAN CORPUSCULAR VOLUME 101.6 fl (80.0-96.0); MONO # 0.9 10^3/uL (0.0-0.8); MONO % 10.5 % (2.0-8.0); NEUTROPHILS # 6.1 10^3/uL (1.5-8.5); PLATELET COUNT, AUTOMATED 195 10^3/uL (150-450); RED BLOOD COUNT 3.75 10^6/uL (4.00-5.40); WHITE BLOOD COUNT 8.9 10^3/uL (4.0-10.0)
[2021-01-24 06:00] VITALS: BP 119/62
[2021-01-24 06:16] LABS: CALCIUM LEVEL 9.4 MG/DL (8.8-10.2); CREATININE FOR GFR 1.32 MG/DL (0.55-1.30); GLOMERULAR FILTRATION RATE 41.5 (>39); POTASSIUM SERUM 4.8 MEQ/L (3.5-5.1)
--- NOTE | 2021-01-24 07:15 | IPNPDOC ---
Subjective Date Seen The patient was seen on 01/24/21. Subjective Chief Complaint/HPI No new complaints today, continues to have abdominal pain and poor appetite. No SOB. Objective Physical Examination General Exam: Positive: Alert, Cooperative, No Acute Distress Eye Exam: Positive: PERRLA, Conjunctiva & lids normal, EOMI; Negative: Sclera icteric Neck Exam: Positive: Supple, JVD; Negative: thyromegaly Chest Exam: Positive: Normal air movement, Other (bilateral basal crackles. ) Heart Exam: Positive: Rate Normal, Regular Rhythm, Normal S1, Normal S2; Negative: Murmurs, Rubs Abdomen Exam: Positive: BS Hyperactive, Soft, Tenderness (in the periumbilical region and the back), Other (No guarding or rigidity) Extremity Exam: Positive: Edema (trace), Tenderness (left knee with bruising); Negative: Clubbing, Cyanosis Assessment /Plan Assessment 75 y/o W with chronic a-fib, copd, pulmonary htn, lean[place], chronic hypoxemia on 2L at home O2 at baseline, DM2 and chronic back pain who presents to the ED after suffering a mechanical fall on the left side and reporting constipation, abdominal pain and found to be in liz CHF. HFpEF exacerbation increased oxygen requirement Lasix 1,8L/24h fluid status, 2g sodium strict I/Os and daily weights Bilateral Pleural effusion L> R due to CHF Left tapped 5/6 Pleural studies transudative, N infection. likely from CHF. cytology pending. Fall with trauma to left knee No fracture ultracet, toradol and oxycodone. Abdominal pain this seems like a chronic issue going on for a year or more. ? gastritis, ? chronic pancreatitis and likely may have had constipation form chronic opiod use. I reviewed her CT abdomen with contrast from oct 2020: Shows pancreatic atrophy, fatty liver with chronic calcified granulomas, mild diverticulosis in the descending and sigmoid colon, L adrenal angiomyolipoma. Vasculature showed atherosclerosis but no significant stenosis any where. No lymphadenopathy or ascites. CT abdomen this admission without contrast: Mild dilatation of the common bile duct at 10 mm stable, Mild left-sided colonic diverticulosis, Enlarging right adrenal myelolipoma now measuring up to 6.4 cm. Fatty liver, calcified granulomas in right lobe of liver. Rectum with some stool. Discussed with Mary. If does not improve with current treatment he would see her next week to see if she need EGD/ Coloscopy as inpatient. Continue PPI, sucralfate, added Creon , continue bowel regimen. 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 Bicarb higher than baseline likely due to metabolic alkalosis from diuresis ABG Pco2 at 69 higher than baseline but the pH was normal. Continue spiriva, duonebs Chronic Constipation bowel regimen in pace Obesity/LEANNE untreated. DM sliding scale insulin, hypoglycemic protocol Chronic Musculoskeletal pain Has full body pain for years, has OA in multiple joints and osteoporosis. continue at home oxycodone Generalized anxiety disorder. continue valium Breast mass 1.4cm irregular mass noted in left breast incidentally on imaging. Patient should f/u promptly outpatient with PCP for breast US or mammogram Pulmonary Nodule 7 mm noncalcified module noted in right upper lobe incidentally on imaging, un changed from prior chest imaging in October 2020. Patient should f/u outpatient with PCP Cervical spondylosis and degenerative disc disease on oxycodone Dispo: ARU Plan/VTE VTE Prophylaxis Ordered?: Yes VS, I&O, 24H, Fishbone Vital Signs/I&O Vital Signs Date Time Temp Pulse Resp B/P (MAP) Pulse Ox O2 Delivery O2 Flow Rate FiO2 01/24/21 06:00 98.0 93 19 119/62 (81) 96 Nasal Cannula 2.0 01/22/21 08:30 31 I&O- Last 24 Hours up to 6 AM 01/24/21 06:00 Intake Total 930 ml Output Total 250 ml Balance 680 ml Laboratory Data 24H LABS Laboratory Tests 2 01/23/21 11:36: Bedside Glucose (Misc Panel) 93 01/23/21 16:38: Bedside Glucose (Misc Panel) 102 01/23/21 20:45: Bedside Glucose (Misc Panel) 133H 01/24/21 05:30: Immature Granulocyte % (Auto) 0.4, Neutrophils (%) (Auto) 68.0H, Lymphocytes (%) (Auto) 15.1L, Monocytes (%) (Auto) 10.5H, Eosinophils (%) (Auto) 5.4H, Basophils (%) (Auto) 0.6, Neutrophils # (Auto) 6.1, Lymphocytes # (Auto) 1.4L, Monocytes # (Auto) 0.9H, Eosinophils # (Auto) 0.5, Basophils # (Auto) 0.1, Nucleated Red Blood Cells % (auto) 0.0, Anion Gap 0L, Glomerular Filtration Rate 41.5, Calcium Level 9.4 CBC/BMP Laboratory Tests 01/24/21 05:30 Microbiology Microbiology 01/21/21 Acid Fast Stain, Received Pending 01/21/21 Mycobacterial Culture, Received Pending 01/21/21 Fungal Smear, Received Pending 01/21/21 Fungal Culture, Received Pending 01/21/21 Gram Stain - Final, Resulted 01/21/21 Body Fluid Culture, Resulted Pending MADY OLEA MD January 24, 2021 07:15
[2021-01-24] MEDS: HumaLOG INSULIN (NovoLOG) PER UNIT SC SCH (07:24)
[2021-01-24] MEDS: SUCRALFATE SUSP 1GM/10ML UD PO SCH ×4 (07:30→20:42)
[2021-01-24] MEDS: TIOTROPIUM INHALER/CAPSULE (SPIRIVA) INH SCH (07:34)
[2021-01-24] MEDS: IPRATROPIUM 0.5MG/ALBUTEROL 2.5MG INH SOL UD 3ML (DUONEB) NEB PRN (08:16)
[2021-01-24] MEDS: MAGNESIUM OXIDE 400MG TAB (MAG-OX) PO SCH (08:28)
[2021-01-24] MEDS: CREON-24 CAPSULE PO SCH ×3 (08:28→17:17)
[2021-01-24] MEDS: METOPROLOL TART 50 MG TAB PO SCH ×2 (08:29→20:43)
[2021-01-24] MEDS: PANTOPRAZOLE 40MG TAB (PROTONIX) PO SCH ×2 (08:29→20:42)
[2021-01-24] MEDS: SENOKOT S TAB PO SCH ×2 (08:29→20:42)
[2021-01-24] MEDS: FUROSEMIDE 20 MG TAB PO SCH (08:30)
[2021-01-24] MEDS: MIRALAX *UNIT DOSE* 17GM PACKET PO SCH (08:30)
[2021-01-24] MEDS: diazePAM 5MG TABLET PO SCH ×3 (08:30→20:42)
[2021-01-24 09:00] VITALS: O2SAT 92
[2021-01-24 14:00] VITALS: BP 94/59
[2021-01-24 22:00] VITALS: BP 96/60
[2021-01-25 06:00] VITALS: BP 102/60
[2021-01-25] MEDS: oxyCODONE 5MG TAB PO PRN (06:04)
[2021-01-25 07:14] LABS: BASO # 0.1 10^3/uL (0.0-0.2); BASO % 0.5 % (0.0-1.0); EOS # 0.4 10^3/uL (0.0-0.5); EOS % 3.9 % (0.0-3.0); HEMATOCRIT 38.8 % (36.0-47.0); HEMOGLOBIN 11.7 g/dl (12.0-15.5); LYMPH # 0.9 10^3/uL (1.5-5.0); LYMPH % 9.9 % (24.0-44.0); MEAN CORPUSCULAR HEMOGLOBIN 30.8 pg (27.0-33.0); MEAN CORPUSCULAR HGB CONC 30.2 g/dl (32.0-36.5); MEAN CORPUSCULAR VOLUME 102.1 fl (80.0-96.0); MONO # 0.9 10^3/uL (0.0-0.8); MONO % 9.8 % (2.0-8.0); NEUTROPHILS % 75.4 % (36.0-66.0); PLATELET COUNT, AUTOMATED 202 10^3/uL (150-450); WHITE BLOOD COUNT 9.3 10^3/uL (4.0-10.0)
[2021-01-25 07:35] LABS: CALCIUM LEVEL 8.6 MG/DL (8.8-10.2); CREATININE FOR GFR 1.22 MG/DL (0.55-1.30); GLOMERULAR FILTRATION RATE 45.5 (>39); POTASSIUM SERUM 4.3 MEQ/L (3.5-5.1)
[2021-01-25] MEDS: IPRATROPIUM 0.5MG/ALBUTEROL 2.5MG INH SOL UD 3ML (DUONEB) NEB PRN (07:52)
[2021-01-25] MEDS: TIOTROPIUM INHALER/CAPSULE (SPIRIVA) INH SCH (07:53)
[2021-01-25] MEDS: CREON-24 CAPSULE PO SCH ×3 (08:55→16:41)
[2021-01-25] MEDS: SUCRALFATE SUSP 1GM/10ML UD PO SCH ×3 (08:55→16:41)
[2021-01-25] MEDS: FUROSEMIDE 20 MG TAB PO SCH (08:55)
[2021-01-25 08:56] VITALS: BP 103/60
[2021-01-25] MEDS: PANTOPRAZOLE 40MG TAB (PROTONIX) PO SCH (08:56)
[2021-01-25] MEDS: diazePAM 5MG TABLET PO SCH ×2 (08:56→16:41)
[2021-01-25] MEDS: MAGNESIUM OXIDE 400MG TAB (MAG-OX) PO SCH (08:56)
[2021-01-25] MEDS: MIRALAX *UNIT DOSE* 17GM PACKET PO SCH (08:56)
[2021-01-25] MEDS: SENOKOT S TAB PO SCH (08:56)
[2021-01-25] MEDS: METOPROLOL TART 50 MG TAB PO SCH (08:56)
[2021-01-25 09:00] VITALS: O2SAT 95
[2021-01-25] MEDS ORDERED: METO25TA4 PO (11:58)
[2021-01-25] MEDS ORDERED: FURO20TA2 PO (11:58)
[2021-01-25] MEDS ORDERED: SUCR1ORA PO (11:58)
[2021-01-25] MEDS ORDERED: PANT40TA29 PO (11:58)
[2021-01-25] MEDS ORDERED: MIRA1POW3 PO (11:58)
[2021-01-25] MEDS ORDERED: Sodium Chloride Nasal Spray (11:58)
[2021-01-25] MEDS ORDERED: SENN-52 PO (11:58)
[2021-01-25] MEDS ORDERED: CREO24CA PO (11:58)
--- NOTE | 2021-01-25 12:06 | DS.PDOC ---
Discharge Summary General Date of Admission Jan 13, 2021 at 19:09 Date of Discharge 01/25/21 Discharge Summary PROCEDURES PERFORMED DURING STAY: Left Pleural Tap. DISCHARGE DIAGNOSES: Diastolic CHF exacerbation Left Pleural effusion Mechanical fall and trauma to left knee Chronic abdominal pain: ? chronic constipation/ gastritis/chronic pancreatitis Left Breast mass 1.4 cm RUL pulmonary nodule 7 mm Secondary diagnoses COPD with chronic hypoxic respiratory failure on 2 L oxygen at Diet-controlled diabetes Chronic A. fib Chronic musculoskeletal Chronic back and neck pain Cervical spondylosis Morbid obesity and LEANNE Generalized anxiety disorder on the benzodiazepines Chronic opiate use Chronic constipation COMPLICATIONS/CHIEF COMPLAINT: Chf (Congestive Heart Failure). HOSPITAL COURSE: 75 y/o W with chronic a-fib, copd, pulmonary htn, leanne, chronic hypoxemia on 2L at home O2 at baseline, DM2 and chronic back pain who presents to the ED after suffering a mechanical fall on the left side and reporting constipation, abdominal pain and found to be in liz CHF. HFpEF exacerbation increased oxygen requirement Lasix 1,8L/24h fluid status, 2g sodium strict I/Os and daily weights Bilateral Pleural effusion L> R due to CHF Left tapped 01/21 Pleural studies transudative, No infection. likely from CHF. cytology negative Fall with trauma to left knee No fracture oxycodone. Chronic Abdominal pain this seems like a chronic issue going on for 2 year or more. ? gastritis, ? chronic pancreatitis and likely may have had constipation form chronic opioid use. I reviewed her CT abdomen with contrast from oct 2020: Shows pancreatic atrophy, fatty liver with chronic calcified granulomas, mild diverticulosis in the descending and sigmoid colon, L adrenal angiomyolipoma. Vasculature showed ath erosclerosis but no significant stenosis any where. No lymphadenopathy or ascites. CT abdomen this admission without contrast: Mild dilatation of the common bile duct at 10 mm stable, Mild left-sided colonic diverticulosis, Enlarging right adrenal myelolipoma now measuring up to 6.4 cm. Fatty liver, calcified granulomas in right lobe of liver. Rectum with some stool. Discussed with Mary. If does not improve with current treatment he would see her next week to see if she needs EGD/ Coloscopy as inpatient. Continue PPI, sucralfate, added Creon , continue bowel regimen. Consult Dr Hernandez if needed. Chronic A-fib Rate controlled metoprolol dose increased and eliquis COPD with chronic hypoxic and hypercarbic resp failure Had exacerbation now resolved. Bicarb higher than baseline likely due to metabolic alkalosis from diuresis ABG Pco2 was at 69 higher than baseline but the pH was normal. Continue albuterol. Patient has spiriva on home meds but she tells me she does not take it as it gives her coughing fits. Chronic Constipation bowel regimen in pace continue miralax daily, senna and colace. Obesity/LEANNE untreated. DM diat controlled. did not need any insulin inpatient. Chronic Musculoskeletal pain Has full body pain for years, has OA in multiple joints and osteoporosis. continue at home oxycodone Generalized anxiety disorder. continue valium Breast mass 1.4cm irregular mass noted in left breast incidentally on imaging. Patient should f/u promptly outpatient with PCP for breast US or mammogram Breast US cannot be done before a Mammogram of before being seen by breast surgeon. Outpatient Mammo Pulmonary Nodule 7 mm noncalcified module noted in right upper lobe incidentally on imaging, unchanged from prior chest imaging in October 2020. Patient should f/u outpatient with PCP Cervical spondylosis and degenerative disc disease on oxycodone DISCHARGE MEDICATIONS: Please see below. ALLERGIES: Please see below. PHYSICAL EXAMINATION ON DISCHARGE: VITAL SIGNS: Please see below. General Exam: Positive: Alert, Cooperative, No Acute Distress Eye Exam: Positive: PERRLA, Conjunctiva & lids normal, EOMI; Negative: Sclera icteric Neck Exam: Positive: Supple, JVD; Negative: thyromegaly Chest Exam: Positive: Normal air movement, Other (bilateral basal crackles. ) Heart Exam: Positive: Rate Normal, Regular Rhythm, Normal S1, Normal S2; Negative: Murmurs, Rubs Abdomen Exam: Positive: BS Hyperactive, Soft, Tenderness (in the periumbilical region and the back), Other (No guarding or rigidity) Extremity Exam: Positive: Edema (trace), Tenderness (left knee with bruising); Negative: Clubbing, Cyanosis LABORATORY DATA: Please see below. ACTIVITY: [As tolerated]. DIET: Carb consistent DISCHARGE PLAN: ARU DISCHARGE INSTRUCTIONS: Needs Left Breast Ultrasound for incidentally noted mass. Referral to Dr Hernandez if continues to have abdominal pain. Will need Repeat CT abdomen and pelvis with contrast in April 2021 to check the pancreas Referral to Pulmonary for follow up on pulmonary Nodule in RUL. ITEMS TO FOLLOWUP ON ON OUTPATIENT: follow up pleural fluid cultures and cytology report. DISCHARGE CONDITION: [Stable]. TIME SPENT ON DISCHARGE: 35 minutes. Vital Signs/I&Os Vital Signs Date Time Temp Pulse Resp B/P (MAP) Pulse Ox O2 Delivery O2 Flow Rate FiO2 01/25/21 09:00 2.0 01/25/21 09:00 95 Nasal Cannula 01/25/21 08:56 103 103/60 01/25/21 07:58 17 01/25/21 06:00 97.5 01/22/21 08:30 31 I&O- Last 24 Hours up to 6 AM 01/25/21 06:00 Intake Total 1010 ml Output Total 900 ml Balance 110 ml Laboratory Data Labs 24H Laboratory Tests 2 01/24/21 20:22: Bedside Glucose (Misc Panel) 128H 01/25/21 06:55: Immature Granulocyte % (Auto) 0.5, Neutrophils (%) (Auto) 75.4H, Lymphocytes (%) (Auto) 9.9L, Monocytes (%) (Auto) 9.8H, Eosinophils (%) (Auto) 3.9H, Basophils (%) (Auto) 0.5, Neutrophils # (Auto) 7.0, Lymphocytes # (Auto) 0.9L, Monocytes # (Auto) 0.9H, Eosinophils # (Auto) 0.4, Basophils # (Auto) 0.1, Nucleated Red Blood Cells % (auto) 0.0, Anion Gap 0L, Glomerular Filtration Rate 45.5, Calcium Level 8.6L CBC/BMP Laboratory Tests 01/25/21 06:55 FSBS Laboratory Tests Test 01/24/21 20:22 Range/Units Bedside Glucose (Misc Panel) 128 83-110 MG/DL Microbiology Microbiology 01/21/21 Acid Fast Stain, Received Pending 01/21/21 Mycobacterial Culture, Received Pending 01/21/21 Fungal Smear, Received Pending 01/21/21 Fungal Culture, Received Pending 01/21/21 Gram Stain - Final, Complete 01/21/21 Body Fluid Culture - Final, Complete Discharge Medications Scheduled Apixaban (Eliquis) 5 Mg Tablet, 5 MG PO BID, (Reported) Ascorbic Acid (Ascorbic Acid) 500 Mg Tablet, 500 MG PO DAILY, (Reported) Cholecalciferol (Vitamin D3) (Vitamin D3) 1,000 Unit Tablet, 1,000 UNITS PO DAILY, (Reported) Diazepam (Valium) 5 Mg Tab, 5 MG PO TID, (Reported) Furosemide (Furosemide) 20 Mg Tablet, 60 MG PO DAILY Magnesium Oxide (Magnesium) 400 Mg Capsule, 400 MG PO DAILY, (Reported) Metoprolol Tartrate (Metoprolol Tartrate) 25 Mg Tablet, 50 MG PO BID Pancreatic Enzymes (Creon Dr 24,000 Units Capsule) 1 Each Capsule.dr, 2 EA PO WM Pantoprazole Sodium (Pantoprazole Sodium) 40 Mg Tablet.dr, 40 MG PO BID Polyethylene Glycol 3350 (Miralax) 17 Gm Powd.pack, 1 PKT PO DAILY Potassium Chloride (Potassium Chloride) 10 Meq Tab.er.prt, 10 MEQ PO DAILY, (Reported) Sennosides/Docusate Sodium (Senna Plus Tablet) 1 Each Tablet, 2 TAB PO BID Sucralfate (Sucralfate) 1 Gm/10 Ml Oral.susp, 1 GM PO ACHS Tiotropium [place] (Spiriva) 18 Mcg Cap.w.dev, 18 MCG INH DAILY, (Reported) Vitamin E (Vitamin E) 400 Unit Capsule, 400 UNIT PO DAILY, (Reported) Scheduled PRN Albuterol Sulf (Albuterol Sulfate) 2.5 Mg/3 Ml Nebu, 1 VIAL NEB Q2H PRN for SOB/WHEEZING, (Reported) Albuterol Sulfate (Proair Hfa) 8.5 Gm Hfa.aer.ad, 2 PUFF INH QID PRN for SHORTNESS OF BREATH, (Reported) Oxycodone HCl/Acetaminophen (Percocet 7.5-325 mg Tablet) 1 Each Tablet, 1 TAB PO TID PRN for PAIN, (Reported) [Sodium Chloride Nasal [place]] 1 NASPR, 2 SPRAY NA Q2HP PRN for NASAL DRYNESS Allergies Coded Allergies: adhesive tape (Verified Allergy, Mild, RASH, 01/13/21) latex (Verified Allergy, Mild, RASH, 01/13/21) azithromycin (Unverified Adverse Reaction, Mild, GI, 01/13/21) Listed under diet MADY OLEA MD January 25, 2021 12:06
[2021-01-25 14:00] VITALS: BP 96/60
== END 2021-01-25 18:50 | DRG 292 ==
LOC: EDBD 14:37 → M ED 14:37 → M ED INP 19:09 → ENRESERV 20:02 → M PCU 20:57 → M MS5PR 01-15 18:20
PROVIDERS: ADMIT Family Medicine; ATTEND Internal Medicine Nephrology
PROC: 0W9B3ZX Drainage of Left Pleural Cavity, Percutaneous Approach, Diagnostic (ICD-10-PCS; principal; 2021-01-21 15:00)
DX: I11.0 Hypertensive heart disease with heart failure (principal); E87.3 Alkalosis; I48.20 Chronic atrial fibrillation, unspecified; J96.11 Chronic respiratory failure with hypoxia; J90 Pleural effusion, not elsewhere classified; K86.1 Other chronic pancreatitis; I50.33 Acute on chronic diastolic (congestive) heart failure; K59.09 Other constipation; J44.9 Chronic obstructive pulmonary disease, unspecified; G47.33 Obstructive sleep apnea (adult) (pediatric); E11.9 Type 2 diabetes mellitus without complications; G89.29 Other chronic pain; F41.1 Generalized anxiety disorder; N63.20 Unspecified lump in the left breast, unspecified quadrant; R91.1 Solitary pulmonary nodule; I27.20 Pulmonary hypertension, unspecified; Z99.81 Dependence on supplemental oxygen; E66.01 Morbid (severe) obesity due to excess calories; M47.812 Spondylosis without myelopathy or radiculopathy, cervical region; K29.70 Gastritis, unspecified, without bleeding; Z68.36 Body mass index [BMI] 36.0-36.9, adult

== ENCOUNTER 2021-01-25 12:39 | Inpatient (IN) | payer MEDICARE, OTHER ==
[~2021-01-25] VITALS: Ht 147.3 cm; Wt 85.1 kg
[~2021-01-25 12:39] MED LIST changes: +CREO24CA PO; +DOK1CAP7 PO; +MIRA1POW3 PO; +SENN-52 PO; +SUCR1ORA PO; +Sodium Chloride Nasal Spray
[2021-01-25] MEDS ORDERED: MIRALAX *UNIT DOSE* 17GM PACKET PO PRN (20:25)
[2021-01-25] MEDS: SODIUM CHLORIDE NASAL 0.65% SPRAY BTL (OCEAN) SCH (21:00)
[2021-01-25] MEDS: COMBIVENT RESPIMAT 100-20MCG INHALER 4GM INH SCH (21:01)
[2021-01-25] MEDS: SENOKOT S TAB PO SCH (21:17)
[2021-01-25] MEDS: SUCRALFATE 1 GM TAB PO SCH (21:17)
[2021-01-25] MEDS: oxyCODONE 5MG TAB PO PRN (21:17)
[2021-01-25] MEDS: METOPROLOL TART 50 MG TAB PO SCH (21:21)
[2021-01-25] MEDS: APIXABAN 5 MG TAB (ELIQUIS) PO SCH (21:21)
[2021-01-25] MEDS: PANTOPRAZOLE 40MG TAB (PROTONIX) PO SCH (21:22)
[2021-01-25] MEDS: diazePAM 5MG TABLET PO SCH (21:22)
[2021-01-25 21:30] VITALS: BP 116/75
[2021-01-25] MEDS: ACETAMINOPHEN TAB 650MG DOSE (2X325MG) PO PRN (22:59)
--- NOTE | 2021-01-25 23:54 | HPEPDOC ---
Night Auditor Note DATE OF ADMISSION: 01-25-21 DATE OF SERVICE: 01-26-21 TIME OF ADMISSION: Please refer to physician's admission order. SOURCE OF ADMISSION INFORMATION: [facility] record and patient CHIEF COMPLAINT: CHF exacerbation HISTORY OF PRESENT ILLNESS: 75F pmh Afib, COPD, pulmonary HTN, LEANNE not on CPAP, chronic hypoxemia on , DM, back pain and multiple joint OA on chronic opioids, who feel at home and presented to [facility] ED on 01-13-21 complaining of back pain and abdominal pain. She was found to be in CHF exacerbation with RVR and was diuresed and monitored on telemetry. She had bilateral pleural effusion, left greater than right in setting of CHF and underwent left thoracentesies on 01-21-21 with results showing transudative fluid. She complained of continue abdominal pain though to be due to constipation due to chronic opioid use, however CT abdomen pelvis revealed Mild dilatation of the common bile duct at 10 mm stable, Mild left-sided colonic diverticulosis, Enlarging right adrenal myelolipoma now measuring up to 6.4 cm. Fatty liver, calcified granulomas in right lobe of liver. Case was dis cussed with GI who recommended addition of Creon and to continue PPI and sucralfate with outpatient follow-up. She was evaluated by therapy, found to have impairments in mobility and ADLs and deemed medically appropriate for discharge to ARU on 01-25-21. REVIEW OF SYSTEMS: The following is a completed review of systems and has been reviewed. Review of systems otherwise unremarkable. PAIN: Patient self reports chronic low back pain EYES: No recent vision changes EARS, NOSE, & THROAT: No throat pain, or dysphagia, or rhinorrhea CARDIOVASCULAR: Denies chest pain or palpitations PULMONARY: +shortness of breath with exertion GASTROINTESTINAL: Denies constipation/diarrhea GENITOURINARY: denies dysuria MUSCULOSKELETAL: +generalized weakness NEUROLOGICAL: denies tremor, + paresthesias HEMATOLOGICAL: left knee/leg ecchymosis SKIN: denies rash PSYCHIATRIC: Unremarkable All other review of systems found to be negative. PAST MEDICAL HISTORY: as per HPI PAST SURGICAL HISTORY: Bilat CTS, appendectomy, umbilica hernia repair, left ankle ORIF ALLERGIES: Please see below. MEDICATIONS: Please see below. SOCIAL HISTORY: Former smoker, no etoh/illicit drugs DIET: low sodium, fluid restrict PHYSICAL EXAMINATION: VITAL SIGNS: Please see below. GENERAL: Pleasant and cooperative. No acute distress. HEENT: PERRL. Extraocular movements intact. Clear conjunctiva CARDIOVASCULAR: Regular rate and rhythm. No murmurs, rubs, or gallops LUNGS: Clear to auscultation bilaterally. No wheezes. No rhonchi ABDOMEN: Soft, nontender, nondistended. Positive bowel sounds. Normal active bowel sounds NEUROLOGICAL: Alert and oriented times three. Cranial nerves II through XII grossly intact. Sensation diminished to light touch in stocking/glove pattern EXTREMITIES: 5\5 strength bilateral upper extremities. 4\5 strength right lower extremity. 4/5 strength in left lower extremity. +bilat LE edema SKIN: left calve and knee with ecchymosis LABORATORY DATA: Please see below. IMAGING: Imaging documentation personally reviewed by record FUNCTIONAL STATUS: Premorbid: Mod-I Independent with all activities of daily life as well as mobility On Admission: Contact guard able to ambulate 3 feet, functional transfers, dressing, toileting GOALS: Mod-I functional transfers, ambulation community distances, stairs, dressing, toileting, bathing ASSESSMENT:75-year-old F with past medical history of Afib, CHF who presents status post CHF exacerbation PLAN: 1. REhab- PT/OT advance mobility and ADLs, strengthen/stretch/maintain ROM all 4 limbs 2. Cardiac- hx of Afib on eliquis and metoprolol -chronic diastolic CHF c/u fluid restriction, daily weights, lasix -medicine consulted to assist in overall management 3. Resp- hx of COPD on home , c/u spiriva and combivent- monitor for infection -LEANNE not on CPAP -bilat pleural effusion s/p thoracentesis 01-21-21, monitor for clinical decline -pulm nodule- 7 mm noncalcified module noted in right upper lobe incidentally on imaging, unchanged from prior chest imaging in october 2020. Patient should f/u outpatient with PCP 4. GI- +common bilat duct dilatation seen on recent CT stable from prior exams, per GI patient started on Creon for pancreatic insufficiency?, c/u sucralfate and protonix, f/u outpatient GI -will monitor for worsening abdominal pain -chronic constipation due to opioid use- c/u Senokot 5. DVT ppx- on eliquis 6. Ortho- hx of multiple joint OA contributing to overall functional decline- c/u oxycodone, tylenol, and valium 7. Endo- hx of DM- diet controlled with peripheral polyneuropathy contributing to overall functional decline 8. Breast mass - 1.4cm irregular mass noted in left breast incidentally on imaging. Patient should f/u outpatient with PCP for breast US or mammogram 9. Pain- valium and oxycodone (home regimen) 10. Dispo- TBD POST ADMISSION PHYSICIAN EVALUATION: Medical and functional status: Description of medical status, medical assessment: As above. Rehabilitation diagnosis and current and prior cold morbid medical conditions as above. Risk of complications and plans to mitigate them as above. Description of functional status current status is as above. Prior status as above. Status compared to preadmission: There are no clinically significant differences between the patient's current status and the information described on the preadmission screening document. Treatment plan anticipated: Treatment plan is as described above. Required disciplines including physical therapy, occupational therapy, others as noted above Intensity of services: 3 hours a day, 6 days a week. Special considerations: There are no specific special or safety considerations that would likely preclude immediate implementation of an intensive rehabilitation program or subsequently influence the plan of care ATTESTATION: Considering all the information above, it is my best judgment that this patient requires intensive rehabilitation therapy as described above and an inpatient hospital environment due to the complexity of nursing, medical, and rehabilitation needs required by the patient. Furthermore, this patient can reasonably be expected to participate in an benefit from an inpatient rehabilitation stay with an interdisciplinary team approach to the delivery of rehabilitation care under the direction and supervision of rehabilitation physician. PROGNOSIS: good ESTIMATED LENGTH OF STAY:10-12 days. PROJECTED DISCHARGE DESTINATION: Home with family support and any durable medical equipment required to increase functional safety and mobility. TIME SPENT COUNSELING AND COORDINATING INITIAL CARE: Greater than 70 minutes. Vital Signs Vital Sign - Last 24 Hours 01/25/21 01/25/21 01/25/21 01/25/21 21:17 21:21 21:30 21:47 Temp 98.4 Pulse 101 103 Resp 18 19 18 B/P (MAP) 116/69 116/75 (89) Pulse Ox 96 97 O2 Delivery Nasal Cannula Nasal Cannula O2 Flow Rate 2.0 2.0 Laboratory Data Labs 24H Laboratory Tests 2 01/25/21 20:41: Bedside Glucose (Misc Panel) 142H FSBS Laboratory Tests Test 01/25/21 20:41 Range/Units Bedside Glucose (Misc Panel) 142 83-110 MG/DL Home Medications Scheduled Apixaban (Eliquis) 5 Mg Tablet, 5 MG PO BID, (Reported) Ascorbic Acid (Ascorbic Acid) 500 Mg Tablet, 500 MG PO DAILY, (Reported) Cholecalciferol (Vitamin D3) (Vitamin D3) 1,000 Unit Tablet, 1,000 UNITS PO DAILY, (Reported) Diazepam (Valium) 5 Mg Tab, 5 MG PO TID, (Reported) Furosemide (Furosemide) 20 Mg Tablet, 60 MG PO DAILY Magnesium Oxide (Magnesium) 400 Mg Capsule, 400 MG PO DAILY, (Reported) Metoprolol Tartrate (Metoprolol Tartrate) 25 Mg Tablet, 50 MG PO BID Pancreatic Enzymes (Creon Dr 24,000 Units Capsule) 1 Each Capsule.dr, 2 EA PO WM Pantoprazole Sodium (Pantoprazole Sodium) 40 Mg Tablet.dr, 40 MG PO BID Polyethylene Glycol 3350 (Miralax) 17 Gm Powd.pack, 1 PKT PO DAILY Potassium Chloride (Potassium Chloride) 10 Meq Tab.er.prt, 10 MEQ PO DAILY, (Reported) Sennosides/Docusate Sodium (Senna Plus Tablet) 1 Each Tablet, 2 TAB PO BID Sucralfate (Sucralfate) 1 Gm/10 Ml Oral.susp, 1 GM PO ACHS Tiotropium [place] (Spiriva) 18 Mcg Cap.w.dev, 18 MCG INH DAILY, (Reported) Vitamin E (Vitamin E) 400 Unit Capsule, 400 UNIT PO DAILY, (Reported) Scheduled PRN Albuterol Sulf (Albuterol Sulfate) 2.5 Mg/3 Ml Nebu, 1 VIAL NEB Q2H PRN for SOB/WHEEZING, (Reported) Albuterol Sulfate (Proair Hfa) 8.5 Gm Hfa.aer.ad, 2 PUFF INH QID PRN for SHORTNESS OF BREATH, (Reported) Oxycodone HCl/Acetaminophen (Percocet 7.5-325 mg Tablet) 1 Each Tablet, 1 TAB PO TID PRN for PAIN, (Reported) [Sodium Chloride Nasal [place]] 1 NASPR, 2 SPRAY NA Q2HP PRN for NASAL DRYNESS Allergies Coded Allergies: adhesive tape (Verified Allergy, Mild, RASH, 01/13/21) latex (Verified Allergy, Mild, RASH, 01/13/21) azithromycin (Unverified Adverse Reaction, Mild, GI, 01/13/21) Listed under diet A-FIB/CHADSVASC A-FIB History Current/History of A-Fib/PAF?: Yes Current PO Anticoag Therapy: Yes CHIRAG LARA MD January 25, 2021 23:54
[2021-01-26] MEDS: oxyCODONE 5MG TAB PO PRN ×3 (03:38→18:23)
[2021-01-26 06:30] VITALS: BP 111/60
[2021-01-26] MEDS: SUCRALFATE 1 GM TAB PO SCH ×4 (06:47→21:48)
[2021-01-26 07:19] LABS: BASO % 0.3 % (0.0-1.0); EOS # 0.3 10^3/uL (0.0-0.5); EOS % 2.6 % (0.0-3.0); LYMPH # 0.8 10^3/uL (1.5-5.0); LYMPH % 7.5 % (24.0-44.0); MEAN CORPUSCULAR HEMOGLOBIN 30.9 pg (27.0-33.0); MEAN CORPUSCULAR VOLUME 103.1 fl (80.0-96.0); MONO # 0.7 10^3/uL (0.0-0.8); MONO % 6.4 % (2.0-8.0); NEUTROPHILS # 8.4 10^3/uL (1.5-8.5); NEUTROPHILS % 82.7 % (36.0-66.0); PLATELET COUNT, AUTOMATED 188 10^3/uL (150-450); RED BLOOD COUNT 3.88 10^6/uL (4.00-5.40); WHITE BLOOD COUNT 10.2 10^3/uL (4.0-10.0)
[2021-01-26 07:44] LABS: ALBUMIN 2.7 GM/DL (3.2-5.2); BILIRUBIN,TOTAL 1.4 MG/DL (0.2-1.0); CALCIUM LEVEL 8.6 MG/DL (8.8-10.2); CREATININE FOR GFR 1.12 MG/DL (0.55-1.30); GLOMERULAR FILTRATION RATE 50.2 (>39); POTASSIUM SERUM 4.3 MEQ/L (3.5-5.1); TOTAL PROTEIN 5.7 GM/DL (6.4-8.2)
[2021-01-26] MEDS: COMBIVENT RESPIMAT 100-20MCG INHALER 4GM INH SCH ×3 (07:49→19:51)
[2021-01-26] MEDS: TIOTROPIUM INHALER/CAPSULE (SPIRIVA) INH SCH (07:50)
[2021-01-26] MEDS: SODIUM CHLORIDE NASAL 0.65% SPRAY BTL (OCEAN) SCH ×3 (09:00→21:56)
[2021-01-26] MEDS: FUROSEMIDE 20 MG TAB PO SCH (09:27)
[2021-01-26] MEDS: VITAMIN D 1,000 INTERNATIONAL UNITS TABLET PO SCH (09:27)
[2021-01-26] MEDS: ASCORBIC ACID 500 MG TAB PO SCH (09:27)
[2021-01-26] MEDS: CREON-24 CAPSULE PO SCH ×3 (09:27→17:24)
[2021-01-26] MEDS: diazePAM 5MG TABLET PO SCH ×3 (09:28→21:48)
[2021-01-26] MEDS: PANTOPRAZOLE 40MG TAB (PROTONIX) PO SCH ×2 (09:28→21:47)
[2021-01-26] MEDS: METOPROLOL TART 50 MG TAB PO SCH ×4 (09:28→21:54)
[2021-01-26] MEDS: APIXABAN 5 MG TAB (ELIQUIS) PO SCH ×2 (09:28→21:48)
[2021-01-26] MEDS: SENOKOT S TAB PO SCH ×2 (09:28→21:48)
[2021-01-26] MEDS: ACETAMINOPHEN TAB 650MG DOSE (2X325MG) PO PRN (11:55)
[2021-01-26 14:00] VITALS: BP 119/74
[2021-01-26 22:00] VITALS: BP 103/59
[2021-01-27 06:43] VITALS: BP 105/66
[2021-01-27] MEDS: COMBIVENT RESPIMAT 100-20MCG INHALER 4GM INH SCH ×3 (07:10→19:49)
[2021-01-27] MEDS: TIOTROPIUM INHALER/CAPSULE (SPIRIVA) INH SCH (07:11)
[2021-01-27] MEDS: METOPROLOL TART 50 MG TAB PO SCH ×2 (08:08→21:00)
[2021-01-27] MEDS: FUROSEMIDE 20 MG TAB PO SCH (08:40)
[2021-01-27] MEDS: CREON-24 CAPSULE PO SCH ×3 (08:41→16:54)
[2021-01-27] MEDS: oxyCODONE 5MG TAB PO PRN ×3 (08:49→21:11)
[2021-01-27] MEDS: ASCORBIC ACID 500 MG TAB PO SCH (08:49)
[2021-01-27] MEDS: APIXABAN 5 MG TAB (ELIQUIS) PO SCH ×2 (08:50→21:09)
[2021-01-27] MEDS: SENOKOT S TAB PO SCH ×2 (08:50→21:09)
[2021-01-27] MEDS: PANTOPRAZOLE 40MG TAB (PROTONIX) PO SCH ×2 (08:50→21:09)
[2021-01-27] MEDS: diazePAM 5MG TABLET PO SCH ×3 (08:50→21:10)
[2021-01-27] MEDS: SUCRALFATE 1 GM TAB PO SCH ×4 (08:50→21:10)
[2021-01-27] MEDS: VITAMIN D 1,000 INTERNATIONAL UNITS TABLET PO SCH (08:50)
[2021-01-27] MEDS: SODIUM CHLORIDE NASAL 0.65% SPRAY BTL (OCEAN) SCH ×3 (08:51→21:00)
[2021-01-27 11:25] LABS: BASO % 0.3 % (0.0-1.0); EOS # 0.1 10^3/uL (0.0-0.5); EOS % 0.7 % (0.0-3.0); HEMATOCRIT 36.7 % (36.0-47.0); HEMOGLOBIN 11.1 g/dl (12.0-15.5); LYMPH # 0.4 10^3/uL (1.5-5.0); LYMPH % 5.3 % (24.0-44.0); MEAN CORPUSCULAR HEMOGLOBIN 30.8 pg (27.0-33.0); MEAN CORPUSCULAR HGB CONC 30.2 g/dl (32.0-36.5); MEAN CORPUSCULAR VOLUME 101.9 fl (80.0-96.0); MONO # 0.8 10^3/uL (0.0-0.8); MONO % 10.2 % (2.0-8.0); NEUTROPHILS # 6.2 10^3/uL (1.5-8.5); NEUTROPHILS % 83.1 % (36.0-66.0); PLATELET COUNT, AUTOMATED 144 10^3/uL (150-450); WHITE BLOOD COUNT 7.4 10^3/uL (4.0-10.0)
[2021-01-27 11:52] LABS: CREATININE FOR GFR 1.14 MG/DL (0.55-1.30); GLOMERULAR FILTRATION RATE 49.2 (>39); POTASSIUM SERUM 3.6 MEQ/L (3.5-5.1)
[2021-01-27] MEDS: LIDOCAINE 5% (LIDODERM) PATCH TD SCH (12:15)
[2021-01-27 14:00] VITALS: BP 125/63
[2021-01-27 20:00] VITALS: BP 104/69
[2021-01-27] MEDS: **NOTE PATIENT COMMENT** MISC XX SCH (21:12)
[2021-01-28 02:00] VITALS: BP 141/72
[2021-01-28 02:54] VITALS: BP 143/93
[2021-01-28 05:11] VITALS: BP 131/73
[2021-01-28] MEDS: TIOTROPIUM INHALER/CAPSULE (SPIRIVA) INH SCH (07:34)
[2021-01-28] MEDS: COMBIVENT RESPIMAT 100-20MCG INHALER 4GM INH SCH ×3 (07:34→19:45)
[2021-01-28] MEDS: CREON-24 CAPSULE PO SCH ×3 (08:27→17:46)
[2021-01-28] MEDS: SENOKOT S TAB PO SCH ×2 (08:27→21:08)
[2021-01-28] MEDS: METOPROLOL TART 50 MG TAB PO SCH ×3 (08:27→21:10)
[2021-01-28] MEDS: ASCORBIC ACID 500 MG TAB PO SCH (08:27)
[2021-01-28] MEDS: SUCRALFATE 1 GM TAB PO SCH ×4 (08:27→21:09)
[2021-01-28] MEDS: VITAMIN D 1,000 INTERNATIONAL UNITS TABLET PO SCH (08:28)
[2021-01-28] MEDS: SODIUM CHLORIDE NASAL 0.65% SPRAY BTL (OCEAN) SCH ×3 (08:28→21:00)
[2021-01-28] MEDS: APIXABAN 5 MG TAB (ELIQUIS) PO SCH ×2 (08:28→21:08)
[2021-01-28] MEDS: diazePAM 5MG TABLET PO SCH ×3 (08:28→21:08)
[2021-01-28] MEDS: PANTOPRAZOLE 40MG TAB (PROTONIX) PO SCH ×2 (08:28→21:09)
[2021-01-28] MEDS: FUROSEMIDE 20 MG TAB PO SCH (08:28)
[2021-01-28] MEDS: oxyCODONE 5MG TAB PO PRN ×3 (08:32→21:30)
[2021-01-28] MEDS: LIDOCAINE 5% (LIDODERM) PATCH TD SCH (08:32)
--- NOTE | 2021-01-28 11:28 | IPNPDOC ---
PM&R Progress Note DATE OF SERVICE: January 28, 2021 Lingo Cleaner Progress Note Subjective: Patient reporting she in good spirits, but does feel pain in her ankle and is concerned she may have fractures with during her recent fall. REVIEW OF SYSTEMS: The following is a completed review of systems and has been reviewed. Review of systems otherwise unremarkable. PAIN: Patient self reports chronic low back pain EYES: No recent vision changes EARS, NOSE, & THROAT: No throat pain, or dysphagia, or rhinorrhea CARDIOVASCULAR: Denies chest pain or palpitations PULMONARY: +shortness of breath with exertion GASTROINTESTINAL: Denies constipation/diarrhea GENITOURINARY: denies dysuria MUSCULOSKELETAL: +generalized weakness NEUROLOGICAL: denies tremor, + paresthesias HEMATOLOGICAL: left knee/leg ecchymosis SKIN: denies rash PSYCHIATRIC: Unremarkable All other review of systems found to be negative. PHYSICAL EXAMINATION: VITAL SIGNS: Please see below. GENERAL: Pleasant and cooperative. No acute distress. HEENT: PERRL. Extraocular movements intact. Clear conjunctiva CARDIOVASCULAR: Regular rate and rhythm. No murmurs, rubs, or gallops LUNGS: Clear to auscultation bilaterally. No wheezes. No rhonchi ABDOMEN: Soft, nontender, nondistended. Positive bowel sounds. Normal active bowel sounds NEUROLOGICAL: Alert and oriented times three. Cranial nerves II through XII grossly intact. Sensation diminished to light touch in stocking/glove pattern EXTREMITIES: 5\5 strength bilateral upper extremities. 4\5 strength right lower extremity. 4/5 strength in left lower extremity. +bilat LE edema (better) left ankle with mild TTP lateral malleoli and swelling SKIN: left calve and knee with ecchymosis ASSESSMENT:75-year-old F with past medical history of Afib, CHF who presents status post CHF exacerbation PLAN: 1. REhab- PT/OT advance mobility and ADLs, strengthen/stretch/maintain ROM all 4 limbs- ambulating with RW 2. Cardiac- hx of Afib on eliquis and metoprolol -chronic diastolic CHF c/u fluid restriction, daily weights, lasix -medicine consulted to assist in overall management 3. Resp- hx of COPD on home , c/u spiriva and combivent- monitor for infection -LEANNE not on CPAP -bilat pleural effusion s/p thoracentesis 01-21-21, monitor for clinical decline- repeat CXR ordered to monitor effusions -pulm nodule- 7 mm noncalcified module noted in right upper lobe incidentally on imaging, unchanged from prior chest imaging in october 2020. Patient should f/u outpatient with PCP 4. GI- +common bilat duct dilatation seen on recent CT stable from prior exams, per GI patient started on Creon for pancreatic insufficiency?, c/u sucralfate and protonix, f/u outpatient GI -will monitor for worsening abdominal pain -chronic constipation due to opioid use- c/u Senokot 5. DVT ppx- on eliquis 6. Ortho- hx of multiple joint OA contributing to overall functional decline- c/u oxycodone, tylenol, and valium 7. Endo- hx of DM- diet controlled with peripheral polyneuropathy contributing to overall functional decline 8. Breast mass - 1.4cm irregular mass noted in left breast incidentally on imaging. Patient should f/u outpatient with PCP for breast US or mammogram 9. Pain- valium and oxycodone (home regimen) -lidoderm patch to low back- patient reporting has has used in past without allergy -left ankle XR ordered today to r/o fracture 10. Dispo- TBD Allergies Coded Allergies: adhesive tape (Verified Allergy, Mild, RASH, 01/13/21) latex (Verified Allergy, Mild, RASH, 01/13/21) azithromycin (Unverified Adverse Reaction, Mild, GI, 01/13/21) Listed under diet Vital Signs Vital Signs Date Time Temp Pulse Resp B/P (MAP) Pulse Ox O2 Delivery O2 Flow Rate FiO2 01/28/21 09:02 16 01/28/21 08:27 106 131/73 01/28/21 08:00 2.0 01/28/21 05:11 97.5 97 Nasal Cannula Laboratory Data Labs 24H Laboratory Tests 2 01/27/21 11:32: Bedside Glucose (Misc Panel) 121H 01/27/21 16:34: Bedside Glucose (Misc Panel) 123H 01/27/21 20:09: Bedside Glucose (Misc Panel) 128H 01/28/21 05:37: Bedside Glucose (Misc Panel) 93 Current Medications Current Medications Current Medications Medications (Trade) Dose Ordered Sig/Kiran Route PRN Reason Start Time Stop Time Status Last Admin Dose Admin Acetaminophen (Tylenol Tab) 650 mg Q4HP PRN PO MILD PAIN (PS 1-4) 01/25/21 20:25 01/26/21 11:55 Albuterol/ Ipratropium (Combivent Respimat 100-20mcg) 1 puff RTID INH 01/25/21 20:00 01/28/21 07:34 Apixaban (Eliquis) 5 mg BID PO 01/25/21 21:00 01/28/21 08:28 Ascorbic Acid (Vitamin C) 500 mg DAILY PO 01/26/21 09:00 01/28/21 08:27 Diazepam (Valium) 5 mg TID PO 01/25/21 21:00 01/28/21 08:28 Furosemide (Lasix) 60 mg DAILY PO 01/26/21 09:00 01/28/21 08:28 Lidocaine (Lidoderm Patch) 1 patch DAILY TD 01/27/21 12:00 01/28/21 08:32 Metoprolol Tartrate (Lopressor) 50 mg BID PO 01/25/21 21:00 01/28/21 08:27 Non-Formulary Medication ( See Comment Field Below ) REMOVE LIDODERM PATCH DAILY@ XX 01/27/21 21:00 01/27/21 21:12 Oxycodone HCl (Roxicodone, Oxyir) 7.5 mg Q6HP PRN PO PAIN 01/25/21 20:25 01/28/21 08:32 Pancrelipase (Creon-24) 2 ea WM PO 01/26/21 08:00 01/28/21 08:27 Pantoprazole Sodium (Protonix) 40 mg BID PO 01/25/21 21:00 01/28/21 08:28 Polyethylene Glycol (Miralax) 1 pkt DAILY PRN PO CONSTIPATION 01/25/21 20:25 Senna/Docusate Sodium (Senokot S) 2 tab BID PO 01/25/21 21:00 01/28/21 08:27 Sodium Chloride ([place] Nasal [place]) 2 spray TID NA 01/25/21 21:00 01/27/21 15:09 Sucralfate (Carafate) 1 gm ACHS PO 01/25/21 21:00 01/28/21 08:27 Tiotropium [place] (Spiriva [place]) 1 inhalation DAILY@08 INH 01/26/21 08:00 Vitamin D (Vitamin D) 1,000 units QAM PO 01/26/21 09:00 01/28/21 08:28 CHIRAG LARA MD January 28, 2021 11:28
--- NOTE | 2021-01-28 11:28 | IPNPDOC ---
PM&R Progress Note DATE OF SERVICE: January 27, 2021 Value Engineer Progress Note Subjective: Patient stating she feels ok today, no worsening breathing, no worsening pain, she would like to try a lidoderm patch to her low back stating she has not had any issues using them in past. REVIEW OF SYSTEMS: The following is a completed review of systems and has been reviewed. Review of systems otherwise unremarkable. PAIN: Patient self reports chronic low back pain EYES: No recent vision changes EARS, NOSE, & THROAT: No throat pain, or dysphagia, or rhinorrhea CARDIOVASCULAR: Denies chest pain or palpitations PULMONARY: +shortness of breath with exertion GASTROINTESTINAL: Denies constipation/diarrhea GENITOURINARY: denies dysuria MUSCULOSKELETAL: +generalized weakness NEUROLOGICAL: denies tremor, + paresthesias HEMATOLOGICAL: left knee/leg ecchymosis SKIN: denies rash PSYCHIATRIC: Unremarkable All other review of systems found to be negative. PHYSICAL EXAMINATION: VITAL SIGNS: Please see below. GENERAL: Pleasant and cooperative. No acute distress. HEENT: PERRL. Extraocular movements intact. Clear conjunctiva CARDIOVASCULAR: Regular rate and rhythm. No murmurs, rubs, or gallops LUNGS: Clear to auscultation bilaterally. No wheezes. No rhonchi ABDOMEN: Soft, nontender, nondistended. Positive bowel sounds. Normal active bowel sounds NEUROLOGICAL: Alert and oriented times three. Cranial nerves II through XII grossly intact. Sensation diminished to light touch in stocking/glove pattern EXTREMITIES: 5\5 strength bilateral upper extremities. 4\5 strength right lower extremity. 4/5 strength in left lower extremity. +bilat LE edema (better) SKIN: left calve and knee with ecchymosis ASSESSMENT:75-year-old F with past medical history of Afib, CHF who presents status post CHF exacerbation PLAN: 1. REhab- PT/OT advance mobility and ADLs, strengthen/stretch/maintain ROM all 4 limbs 2. Cardiac- hx of Afib on eliquis and metoprolol -chronic diastolic CHF c/u fluid restriction, daily weights, lasix -medicine consulted to assist in overall management 3. Resp- hx of COPD on home , c/u spiriva and combivent- monitor for infection -LEANNE not on CPAP -bilat pleural effusion s/p thoracentesis 01-21-21, monitor for clinical decline -pulm nodule- 7 mm noncalcified module noted in right upper lobe incidentally on imaging, unchanged from prior chest imaging in october 2020. Patient should f/u outpatient with PCP 4. GI- +common bilat duct dilatation seen on recent CT stable from prior exams, per GI patient started on Creon for pancreatic insufficiency?, c/u sucralfate and protonix, f/u outpatient GI -will monitor for worsening abdominal pain -chronic constipation due to opioid use- c/u Senokot 5. DVT ppx- on eliquis 6. Ortho- hx of multiple joint OA contributing to overall functional decline- c/u oxycodone, tylenol, and valium 7. Endo- hx of DM- diet controlled with peripheral polyneuropathy contributing to overall functional decline 8. Breast mass - 1.4cm irregular mass noted in left breast incidentally on imaging. Patient should f/u outpatient with PCP for breast US or mammogram 9. Pain- valium and oxycodone (home regimen) -lidoderm patch to low back- patient reporting has has used in past without allergy 10. Dispo- TBD Allergies Coded Allergies: adhesive tape (Verified Allergy, Mild, RASH, 01/13/21) latex (Verified Allergy, Mild, RASH, 01/13/21) azithromycin (Unverified Adverse Reaction, Mild, GI, 01/13/21) Listed under diet Vital Signs Vital Signs Date Time Temp Pulse Resp B/P (MAP) Pulse Ox O2 Delivery O2 Flow Rate FiO2 01/28/21 09:02 16 01/28/21 08:27 106 131/73 01/28/21 08:00 2.0 01/28/21 05:11 97.5 97 Nasal Cannula Laboratory Data Labs 24H Laboratory Tests 2 01/27/21 11:32: Bedside Glucose (Misc Panel) 121H 01/27/21 16:34: Bedside Glucose (Misc Panel) 123H 01/27/21 20:09: Bedside Glucose (Misc Panel) 128H 01/28/21 05:37: Bedside Glucose (Misc Panel) 93 Current Medications Current Medications Current Medications Medications (Trade) Dose Ordered Sig/Kiran Route PRN Reason Start Time Stop Time Status Last Admin Dose Admin Acetaminophen (Tylenol Tab) 650 mg Q4HP PRN PO MILD PAIN (PS 1-4) 01/25/21 20:25 01/26/21 11:55 Albuterol/ Ipratropium (Combivent Respimat 100-20mcg) 1 puff RTID INH 01/25/21 20:00 01/28/21 07:34 Apixaban (Eliquis) 5 mg BID PO 01/25/21 21:00 01/28/21 08:28 Ascorbic Acid (Vitamin C) 500 mg DAILY PO 01/26/21 09:00 01/28/21 08:27 Diazepam (Valium) 5 mg TID PO 01/25/21 21:00 01/28/21 08:28 Furosemide (Lasix) 60 mg DAILY PO 01/26/21 09:00 01/28/21 08:28 Lidocaine (Lidoderm Patch) 1 patch DAILY TD 01/27/21 12:00 01/28/21 08:32 Metoprolol Tartrate (Lopressor) 50 mg BID PO 01/25/21 21:00 01/28/21 08:27 Non-Formulary Medication ( See Comment Field Below ) REMOVE LIDODERM PATCH DAILY@21 XX 01/27/21 21:00 01/27/21 21:12 Oxycodone HCl (Roxicodone, Oxyir) 7.5 mg Q6HP PRN PO PAIN 01/25/21 20:25 01/28/21 08:32 Pancrelipase (Creon-24) 2 ea WM PO 01/26/21 08:00 01/28/21 08:27 Pantoprazole Sodium (Protonix) 40 mg BID PO 01/25/21 21:00 01/28/21 08:28 Polyethylene Glycol (Miralax) 1 pkt DAILY PRN PO CONSTIPATION 01/25/21 20:25 Senna/Docusate Sodium (Senokot S) 2 tab BID PO 01/25/21 21:00 01/28/21 08:27 Sodium Chloride ([place]on Nasal [place]) 2 spray TID NA 01/25/21 21:00 01/27/21 15:09 Sucralfate (Carafate) 1 gm ACHS PO 01/25/21 21:00 01/28/21 08:27 Tiotropium [place] (Spiriva Handihaler) 1 inhalation DAILY@08 INH 01/26/21 08:00 Vitamin D (Vitamin D) 1,000 units QAM PO 01/26/21 09:00 01/28/21 08:28 CHIRAG LARA MD January 28, 2021 11:28
[2021-01-28 13:55] VITALS: BP 108/64
[2021-01-28 14:00] VITALS: BP 108/64
--- NOTE | 2021-01-28 15:17 | REP ---
INDICATION: monitor effusions, pulm edema?. COMPARISON: 01/19/2021 the latest prior TECHNIQUE: AP and lateral FINDINGS: The technique utilized in obtaining the radiograph has magnified the cardiac silhouette and attenuated the interstitial markings. The left pleural effusion seen previously has decreased. A significant residual persists, however. There are no other significant lung field changes on either side. There is cardiomegaly accentuated by technique. There is no change in the osseous structures. IMPRESSION: Improved but persistent left pleural effusion as described above. <Electronically signed by Alok Killian > 01/28/21 [id number]
--- NOTE | 2021-01-28 15:25 | REP ---
INDICATION: fall with pain and swelling. COMPARISON: None. TECHNIQUE: Four views FINDINGS: The bones are significantly demineralized. There is asymmetric mortise narrowing. There are degenerative changes present. There is a plantar calcaneal heel spur. I see no definite evidence of acute fracture.. IMPRESSION: Chronic changes as described above. Due to the degree of bony demineralization consider CT. <Electronically signed by Alok Killian > 01/28/21 [id number]
[2021-01-28 20:00] VITALS: BP 105/55
[2021-01-28] MEDS: **NOTE PATIENT COMMENT** MISC XX SCH (21:10)
[2021-01-29] MEDS: oxyCODONE 5MG TAB PO PRN ×3 (04:00→21:23)
[2021-01-29 05:25] VITALS: BP 107/56
[2021-01-29] MEDS: METOPROLOL TART 50 MG TAB PO SCH ×3 (05:42→21:09)
[2021-01-29 06:36] LABS: BASO % 0.5 % (0.0-1.0); EOS # 0.2 10^3/uL (0.0-0.5); EOS % 2.8 % (0.0-3.0); HEMATOCRIT 37.8 % (36.0-47.0); HEMOGLOBIN 11.4 g/dl (12.0-15.5); LYMPH % 11.6 % (24.0-44.0); MEAN CORPUSCULAR HEMOGLOBIN 30.9 pg (27.0-33.0); MEAN CORPUSCULAR HGB CONC 30.2 g/dl (32.0-36.5); MEAN CORPUSCULAR VOLUME 102.4 fl (80.0-96.0); NEUTROPHILS # 6.3 10^3/uL (1.5-8.5); NEUTROPHILS % 72.6 % (36.0-66.0); PLATELET COUNT, AUTOMATED 125 10^3/uL (150-450); RED BLOOD COUNT 3.69 10^6/uL (4.00-5.40); WHITE BLOOD COUNT 8.7 10^3/uL (4.0-10.0)
[2021-01-29 06:53] LABS: CALCIUM LEVEL 8.6 MG/DL (8.8-10.2); CREATININE FOR GFR 1.16 MG/DL (0.55-1.30); GLOMERULAR FILTRATION RATE 48.2 (>39); POTASSIUM SERUM 3.5 MEQ/L (3.5-5.1)
[2021-01-29] MEDS: COMBIVENT RESPIMAT 100-20MCG INHALER 4GM INH SCH ×3 (07:17→19:54)
[2021-01-29] MEDS: TIOTROPIUM INHALER/CAPSULE (SPIRIVA) INH SCH (07:17)
[2021-01-29] MEDS: SUCRALFATE 1 GM TAB PO SCH ×4 (07:40→21:02)
[2021-01-29] MEDS: ASCORBIC ACID 500 MG TAB PO SCH (07:40)
[2021-01-29] MEDS: CREON-24 CAPSULE PO SCH ×3 (07:40→17:28)
[2021-01-29] MEDS: APIXABAN 5 MG TAB (ELIQUIS) PO SCH ×2 (07:40→21:01)
[2021-01-29] MEDS: VITAMIN D 1,000 INTERNATIONAL UNITS TABLET PO SCH (07:40)
[2021-01-29] MEDS: diazePAM 5MG TABLET PO SCH ×3 (07:40→21:01)
[2021-01-29] MEDS: PANTOPRAZOLE 40MG TAB (PROTONIX) PO SCH ×2 (07:40→21:01)
[2021-01-29] MEDS: LIDOCAINE 5% (LIDODERM) PATCH TD SCH (07:40)
[2021-01-29] MEDS: SENOKOT S TAB PO SCH ×2 (07:41→21:02)
[2021-01-29] MEDS: SODIUM CHLORIDE NASAL 0.65% SPRAY BTL (OCEAN) SCH ×3 (07:42→21:02)
[2021-01-29] MEDS: FUROSEMIDE 20 MG TAB PO SCH (07:42)
[2021-01-29 14:00] VITALS: BP 113/64
[2021-01-29 20:30] VITALS: BP 126/64
[2021-01-29] MEDS: **NOTE PATIENT COMMENT** MISC XX SCH (21:09)
[2021-01-29 22:00] VITALS: BP 126/64
[2021-01-30] MEDS: oxyCODONE 5MG TAB PO PRN ×3 (03:41→20:48)
[2021-01-30] MEDS: ACETAMINOPHEN TAB 650MG DOSE (2X325MG) PO PRN ×2 (03:43→20:46)
[2021-01-30] MEDS: METOPROLOL TART 50 MG TAB PO SCH ×4 (05:50→20:53)
[2021-01-30 06:00] VITALS: BP 112/74
[2021-01-30] MEDS: COMBIVENT RESPIMAT 100-20MCG INHALER 4GM INH SCH ×3 (07:17→20:37)
[2021-01-30] MEDS: TIOTROPIUM INHALER/CAPSULE (SPIRIVA) INH SCH (07:18)
[2021-01-30] MEDS: SUCRALFATE 1 GM TAB PO SCH ×4 (07:30→20:39)
[2021-01-30] MEDS ORDERED: LIDOCAINE 5% (LIDODERM) PATCH TD SCH (09:00)
[2021-01-30] MEDS: CREON-24 CAPSULE PO SCH ×3 (09:46→18:02)
[2021-01-30] MEDS: FUROSEMIDE 20 MG TAB PO SCH (09:46)
[2021-01-30] MEDS: diazePAM 5MG TABLET PO SCH ×3 (09:46→20:39)
[2021-01-30] MEDS: ASCORBIC ACID 500 MG TAB PO SCH (09:46)
[2021-01-30] MEDS: SENOKOT S TAB PO SCH ×2 (09:46→20:39)
[2021-01-30] MEDS: APIXABAN 5 MG TAB (ELIQUIS) PO SCH ×2 (09:46→20:39)
[2021-01-30] MEDS: VITAMIN D 1,000 INTERNATIONAL UNITS TABLET PO SCH (09:47)
[2021-01-30] MEDS: LIDOCAINE 5% (LIDODERM) PATCH TD SCH (09:47)
[2021-01-30] MEDS: PANTOPRAZOLE 40MG TAB (PROTONIX) PO SCH ×2 (09:47→20:39)
[2021-01-30] MEDS: SODIUM CHLORIDE NASAL 0.65% SPRAY BTL (OCEAN) SCH ×3 (09:48→20:40)
[2021-01-30] MEDS ORDERED: DEXTROSE 50% 50 ML SYRINGE IV PRN (11:55)
[2021-01-30] MEDS ORDERED: GLUCOSE 4GM CHEW TABLET PO PRN (11:55)
[2021-01-30] MEDS ORDERED: GLUCAGON INJ 1MG VIAL SC PRN (11:55)
--- NOTE | 2021-01-30 12:05 | CR.PDOC ---
General Date of Consultation: January 30, 2021 Consultation REASON FOR CONSULTATION/CHIEF COMPLAINT: Management of chronic medical problems HISTORY OF PRESENT ILLNESS: 75-year-old female with past medical history significant for preserved systolic function Ejection fraction 75%, Chronic atrial fibrillation, COPD, pulmonary hyp ertension, obstructive sleep apnea, chronic hypoxic respiratory failure, and 2 L of home oxygen at home. Type 2 diabetes, chronic back pain , recently discharged from the medical floor after she was treated for a mechanical fall, found to be fluid overloaded due to congestive heart failure with left-sided pleural effusion. BNP of 3868 and metabolic alkalosis. Echocardiogram showed preserved systolic function with ejection fraction of 75%. She was kept on metoprolol for chronic A. fib as well as anti-coag ablation with her Ellik was she complaining of abdominal pain. CT abdomen and pelvis in October showed pancreatic atrophy. During the previous admission to [facility] showed right adrenal myelolipoma measuring 6.4 cm, mild left sided colonic diverticulosis, mild dilatation of common bile duct at 10 mm, which was stable. She was continued on PPI, Carafate and Creon. On imaging, she was also noted to have a breast mass measuring 1.4 cm, irregularly on the left that requires a breast ultrasound, mammogram and biopsy as outpatient. CT chest also showed a seventh 7 mm noncalcified nodule in the right upper lobe which was unchanged from prior study with outpatient follow primary care strongly recommended. Patient does admitted to acute rehabilitation unit for rehabilitation services. Pt c/o chronic low back pain 5/10 while laying down not moving, w/o radiation. ALLERGIES: Please see below. HOME MEDICATIONS: Please see below. PAST MEDICAL HISTORY: Ejection fraction 75%, Chronic atrial fibrillation, COPD, pulmonary hyper tension, obstructive sleep apnea, chronic hypoxic respiratory failure, and 2 L of home oxygen at home. Type 2 diabetes, chronic back pain PAST SURGICAL HISTORY: Left ankle ORIF, bilateral carpal tunnel repair, appendectomy, umbilical hernia repair FAMILY HISTORY: Noncontributory due to advanced age SOCIAL HISTORY: Previously smoke cigarettes. No recreational drug use, alcohol abuse. Lives with her REVIEW OF SYSTEMS: 10 point review of systems negative aside from positive findings in HPI PHYSICAL EXAMINATION: VITAL SIGNS: Please see below. GENERAL APPEARANCE: Obese female, no distress. No conversational dyspnea or pallor, cyanosis, no use of respiratory accessory muscles. Speaks in full sentences HEENT: No JVD, thyromegaly, cervical lymphadenopathy, no stridor, no carotid bruit RESPIRATORY: Diminished no wheezing, rales or rhonchi CARDIOVASCULAR: S1, S2, regularly irregular. No murmurs, rubs or gallops ABDOMEN: Obese, soft, nontender, nondistended, positive bowel sounds 4 quadrants. No hepatosplenomegaly EXTREMITIES: Positive edema bilaterally LABORATORY DATA: Please see below. ASSESSMENT/PLAN: 75-year-old female with past medical history significant for preserved systolic function Ejection fraction 75%, Chronic atrial fibrillation, COPD, pulmonary hypertension, obstructive sleep apnea, chronic hypoxic respiratory failure, and 2 L of home oxygen at home. Type 2 diabetes, chronic back pain , recently discharged from the medical floor after she was treated for a mechanical fall, found to be fluid overloaded due to congestive heart failure with left-sided pleural effusion. BNP of 3868 and metabolic alkalosis. Echocardiogram showed preserved systolic function with ejection fraction of 75%. She was kept on metoprolol for chronic A. fib as well as anti-coag ablation with her Ellik was she complaining of abdominal pain. CT abdomen and pelvis in October showed pancreatic atrophy. During the previous admission to [facility] showed right adrenal myelolipoma measuring 6.4 cm, mild left sided colonic diverticulosis, mild dilatation of common bile duct at 10 mm, which was stable. She was continued on PPI, Carafate and Creon. On imaging, she was also noted to have a breast mass measuring 1.4 cm, irregularly on the left that requires a breast ultrasound, mammogram and biopsy as outpatient. CT chest also showed a seventh 7 mm noncalcified nodule in the right upper lobe which was unchanged from prior study with outpatient follow primary care strongly recommended. Patient does admitted to acute rehabilitation unit for rehabilitation services. Congestive heart failure with preserved systolic function. Ejection fraction 75%, compensated -Keep on strict I's and O's, daily weights, fluid restriction of 2 L and continue with Lasix 60 mg daily. Monitor for electrolytes and supplement as needed to keep potassium greater than 4, magnesium greater than 2. At all times. Chronic atrial fibrillation -Rate controlled on metoprolol and resumed on her home dose of Ellik was COPD with chronic hypoxic and hypercarbic respiratory failure -Was recently treated for acute exacerbation continued on bronchodilators and supplemental oxygen to keep saturations 90-92%. Chronic constipation -Bowel regimen Type 2 diabetes -On insulin sliding scale with fingersticks before every meal CHS and Hypogl ycemic protocol. Diet controlled as outpatient Chronic musculoskeletal pain -As needed pain medications Generalized anxiety -Resumed on home meds 1.4 cm irregular breast mass on the left. On incidental imaging -Patient will need primary care physician to do a breast ultrasound, mammogram and biopsy with referral to a breast surgeon as outpatient within 1-2 weeks of hospital discharge 7 mm noncalcified nodule noted in the right upper lobe, incidental finding -Unchanged from prior CT in October 2020. Outpatient follow-up by primary care physician Cervical spondylosis and degenerative disc disease -As needed pain medications Chronic abdominal pain -CT abdomen and pelvis during this admission shows mild dilatation of the common bile duct. Patient is encouraged to have referral to gastroenterology continued on PPI, Carafate and Creon. Incidental finding of enlarging right adrena myelolipoma measuring 6.4 cm -Outpatient follow-up by primary care with repeat imaging Mechanical fall with trauma to the left knee -Rehabilitation services and oxycodone. No fracture and imaging Mechanical fall -Rehabilitation services Vital Signs/I&O Vital Signs Date Time Temp Pulse Resp B/P (MAP) Pulse Ox O2 Delivery O2 Flow Rate FiO2 01/30/21 10:20 18 01/30/21 09:00 2.0 01/30/21 06:00 97.6 88 112/74 (87) 94 Nasal Cannula I&O- Last 24 Hours up to 6 AM 01/30/21 06:00 Intake Total 760 ml Balance 760 ml Allergies Coded Allergies: adhesive tape (Verified Allergy, Mild, RASH, 01/13/21) latex (Verified Allergy, Mild, RASH, 01/13/21) azithromycin (Unverified Adverse Reaction, Mild, GI, 01/13/21) Listed under diet Home Medications Scheduled Apixaban (Eliquis) 5 Mg Tablet, 5 MG PO BID, (Reported) Ascorbic Acid (Ascorbic Acid) 500 Mg Tablet, 500 MG PO DAILY, (Reported) Cholecalciferol (Vitamin D3) (Vitamin D3) 1,000 Unit Tablet, 1,000 UNITS PO DAILY, (Reported) Diazepam (Valium) 5 Mg Tab, 5 MG PO TID, (Reported) Furosemide (Furosemide) 20 Mg Tablet, 60 MG PO DAILY, #60 Magnesium Oxide (Magnesium) 400 Mg Capsule, 400 MG PO DAILY, (Reported) Metoprolol Tartrate (Metoprolol Tartrate) 25 Mg Tablet, 50 MG PO BID, #60 Pancreatic Enzymes (Creon Dr 24,000 Units Capsule) 1 Each Capsule.dr, 2 EA PO WM, #90 Pantoprazole Sodium (Pantoprazole Sodium) 40 Mg Tablet.dr, 40 MG PO BID, #60 Polyethylene Glycol 3350 (Miralax) 17 Gm Powd.pack, 1 PKT PO DAILY, #10 Potassium Chloride (Potassium Chloride) 10 Meq Tab.er.prt, 10 MEQ PO DAILY, (Reported) Sennosides/Docusate Sodium (Senna Plus Tablet) 1 Each Tablet, 2 TAB PO BID, #60 Sucralfate (Sucralfate) 1 Gm/10 Ml Oral.susp, 1 GM PO ACHS, #28 Tiotropium [place] (Spiriva) 18 Mcg Cap.w.dev, 18 MCG INH DAILY, (Reported) Vitamin E (Vitamin E) 400 Unit Capsule, 400 UNIT PO DAILY, (Reported) Scheduled PRN Albuterol Sulf (Albuterol Sulfate) 2.5 Mg/3 Ml Nebu, 1 VIAL NEB Q2H PRN for SOB/WHEEZING, (Reported) Albuterol Sulfate (Proair Hfa) 8.5 Gm Hfa.aer.ad, 2 PUFF INH QID PRN for SHORTNESS OF BREATH, (Reported) Oxycodone HCl/Acetaminophen (Percocet 7.5-325 mg Tablet) 1 Each Tablet, 1 TAB PO TID PRN for PAIN, (Reported) [Sodium Chloride Nasal [place]] 1 NASPR, 2 SPRAY NA Q2HP PRN for NASAL DRYNESS KRISTA GRAY MD January 30, 2021 11:54
[2021-01-30] MEDS ORDERED: ACETAMINOPHEN 500 MG TAB PO ONE (12:30)
[2021-01-30] MEDS: HumaLOG INSULIN (NovoLOG) PER UNIT SC SCH ×2 (12:31→17:30)
[2021-01-30 13:35] LABS: HEMOGLOBIN A1c 5.5 %
[2021-01-30 14:00] VITALS: BP 97/54
[2021-01-30 20:30] VITALS: BP 104/58
[2021-01-30] MEDS: **NOTE PATIENT COMMENT** MISC XX SCH (20:40)
[2021-01-30 22:00] VITALS: BP 100/59
[2021-01-31] MEDS: METOPROLOL TART 50 MG TAB PO SCH ×3 (05:24→22:09)
[2021-01-31] MEDS: oxyCODONE 5MG TAB PO PRN (05:26)
[2021-01-31 06:19] VITALS: BP 109/61
[2021-01-31] MEDS: COMBIVENT RESPIMAT 100-20MCG INHALER 4GM INH SCH ×3 (07:22→21:46)
[2021-01-31] MEDS: TIOTROPIUM INHALER/CAPSULE (SPIRIVA) INH SCH (07:22)
[2021-01-31] MEDS: HumaLOG INSULIN (NovoLOG) PER UNIT SC SCH ×3 (07:30→17:30)
[2021-01-31] MEDS: LIDOCAINE 5% (LIDODERM) PATCH TD SCH (09:00)
[2021-01-31] MEDS: SODIUM CHLORIDE NASAL 0.65% SPRAY BTL (OCEAN) SCH ×3 (09:00→20:38)
[2021-01-31] MEDS: ASCORBIC ACID 500 MG TAB PO SCH (09:07)
[2021-01-31] MEDS: VITAMIN D 1,000 INTERNATIONAL UNITS TABLET PO SCH (09:07)
[2021-01-31] MEDS: diazePAM 5MG TABLET PO SCH ×3 (09:07→20:36)
[2021-01-31] MEDS: SUCRALFATE 1 GM TAB PO SCH ×4 (09:07→20:37)
[2021-01-31] MEDS: APIXABAN 5 MG TAB (ELIQUIS) PO SCH ×2 (09:07→20:36)
[2021-01-31] MEDS: PANTOPRAZOLE 40MG TAB (PROTONIX) PO SCH ×2 (09:07→20:37)
[2021-01-31] MEDS: CREON-24 CAPSULE PO SCH ×3 (09:08→18:00)
[2021-01-31] MEDS: FUROSEMIDE 20 MG TAB PO SCH (09:08)
[2021-01-31] MEDS: SENOKOT S TAB PO SCH ×2 (09:08→20:37)
[2021-01-31 14:00] VITALS: BP 129/62
[2021-01-31 20:00] VITALS: BP 122/73
[2021-01-31] MEDS: ACETAMINOPHEN TAB 650MG DOSE (2X325MG) PO PRN (20:38)
[2021-01-31] MEDS ORDERED: **NOTE PATIENT COMMENT** MISC XX SCH (21:00)
[2021-02-01 05:12] VITALS: BP 112/66
[2021-02-01] MEDS: METOPROLOL TART 50 MG TAB PO SCH ×2 (05:31→14:00)
[2021-02-01] MEDS: COMBIVENT RESPIMAT 100-20MCG INHALER 4GM INH SCH ×2 (07:27→13:17)
[2021-02-01] MEDS: TIOTROPIUM INHALER/CAPSULE (SPIRIVA) INH SCH (07:28)
[2021-02-01] MEDS: HumaLOG INSULIN (NovoLOG) PER UNIT SC SCH ×3 (07:30→17:30)
[2021-02-01] MEDS: SODIUM CHLORIDE NASAL 0.65% SPRAY BTL (OCEAN) SCH ×2 (09:00→15:04)
[2021-02-01] MEDS: diazePAM 5MG TABLET PO SCH (09:00)
[2021-02-01] MEDS: SUCRALFATE 1 GM TAB PO SCH ×3 (09:21→18:14)
[2021-02-01] MEDS: LIDOCAINE 5% (LIDODERM) PATCH TD SCH (09:21)
[2021-02-01] MEDS: ASCORBIC ACID 500 MG TAB PO SCH (09:21)
[2021-02-01] MEDS: SENOKOT S TAB PO SCH (09:22)
[2021-02-01] MEDS: APIXABAN 5 MG TAB (ELIQUIS) PO SCH (09:22)
[2021-02-01] MEDS: PANTOPRAZOLE 40MG TAB (PROTONIX) PO SCH (09:22)
[2021-02-01] MEDS: VITAMIN D 1,000 INTERNATIONAL UNITS TABLET PO SCH (09:22)
[2021-02-01] MEDS: FUROSEMIDE 20 MG TAB PO SCH (09:22)
[2021-02-01] MEDS: CREON-24 CAPSULE PO SCH ×3 (09:32→18:15)
[2021-02-01] MEDS: ACETAMINOPHEN TAB 650MG DOSE (2X325MG) PO PRN (09:33)
[2021-02-01] MEDS ORDERED: oxyCODONE 5MG TAB PO PRN (12:20)
[2021-02-01] MEDS ORDERED: diazePAM 5MG TABLET PO SCH ×2 (12:20→15:40)
[2021-02-01 14:00] VITALS: BP 113/65
--- NOTE | 2021-02-01 16:11 | IPNPDOC ---
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 ABG, CXR, BNP ordered- pC02 73, BNP 10,000, CXR showing worsening effusions- patient transferred to ICU for CHF exacerbation REVIEW OF SYSTEMS: The following is a completed review of systems and has been reviewed. Review of systems otherwise unremarkable. PAIN: Patient self reports chronic low back pain EYES: No recent vision changes EARS, NOSE, & THROAT: No throat pain, or dysphagia, or rhinorrhea CARDIOVASCULAR: Denies chest pain or palpitations PULMONARY: +shortness of breath with exertion GASTROINTESTINAL: Denies constipation/diarrhea GENITOURINARY: denies dysuria MUSCULOSKELETAL: +generalized weakness NEUROLOGICAL: denies tremor, + paresthesias HEMATOLOGICAL: left knee/leg ecchymosis SKIN: denies rash PSYCHIATRIC: Unremarkable All other review of systems found to be negative. PHYSICAL EXAMINATION: VITAL SIGNS: Please see below. GENERAL: Pleasant and cooperative. No acute distress. HEENT: PERRL. Extraocular movements intact. Clear conjunctiva CARDIOVASCULAR: Regular rate and rhythm. No murmurs, rubs, or gallops LUNGS: diminished breath sounds throughout ABDOMEN: Soft, nontender, nondistended. Positive bowel sounds. Normal active bowel sounds NEUROLOGICAL: Alert and oriented times three. Cranial nerves II through XII grossly intact. Sensation diminished to light touch in stocking/glove pattern EXTREMITIES: 5\5 strength bilateral upper extremities. 4\5 strength right lower extremity. 4/5 strength in left lower extremity. +bilat LE edema (worse) Left knee with swelling and patch of erythema on lateral knee TTP and warm, able to range knee SKIN: left leg with ecchymosis ASSESSMENT:75-year-old F with past medical history of Afib, CHF who presents status post CHF exacerbation PLAN: 1. REhab- PT/OT advance mobility and ADLs, strengthen/stretch/maintain ROM all 4 limbs 2. Cardiac- hx of Afib on eliquis and metoprolol -chronic diastolic CHF c/u fluid restriction, daily weights, lasix -medicine consulted to assist in overall management 3. Resp- hx of COPD on home , c/u spiriva and combivent- monitor for infection -LEANNE not on CPAP -bilat pleural effusion s/p thoracentesis 01-21-21, monitor for clinical decline -pulm nodule- 7 mm noncalcified module noted in right upper lobe incidentally on imaging, unchanged from prior chest imaging in october 2020. Patient should f/u outpatient with PCP 4. GI- +common bilat duct dilatation seen on recent CT stable from prior exams, per GI patient started on Creon for pancreatic insufficiency?, c/u sucralfate and protonix, f/u outpatient GI -will monitor for worsening abdominal pain -chronic constipation due to opioid use- c/u Senokot 5. DVT ppx- on eliquis 6. Ortho- hx of multiple joint OA contributing to overall functional decline- c/u oxycodone, tylenol, and valium 7. Endo- hx of DM- diet controlled with peripheral polyneuropathy contributing to overall functional decline 8. Breast mass - 1.4cm irregular mass noted in left breast incidentally on imaging. Patient should f/u outpatient with PCP for breast US or mammogram 9. Pain- valium and oxycodone (home regimen) -lidoderm patch to low back- patient reporting has has used in past without allergy -left ankle XR 01-28-21 negative for fracture -left knee with some TTP, erythema and swelling- concern for cellulitis, able to range knee, but mildly pain- low concern for septic joint- ordered MRI of knee which got canceled on transfer to ICU for CHF exacerbation- hospitalist aware and will monitor 10. Dispo- TBD Allergies Coded Allergies: adhesive tape (Verified Allergy, Mild, RASH, 01/13/21) latex (Verified Allergy, Mild, RASH, 01/13/21) azithromycin (Unverified Adverse Reaction, Mild, GI, 01/13/21) Listed under diet Vital Signs Vital Signs Date Time Temp Pulse Resp B/P (MAP) Pulse Ox O2 Delivery O2 Flow Rate FiO2 02/01/21 14:00 97.0 92 18 113/65 (81) 96 Nasal Cannula 2.0 01/31/21 05:26 94 Laboratory Data Labs 24H Laboratory Tests 2 01/31/21 17:05: Bedside Glucose (Misc Panel) 108 02/01/21 09:16: Bedside Glucose (Misc Panel) 99 02/01/21 11:30: Bedside Glucose (Misc Panel) 129H Current Medications Current Medications Current Medications Medications (Trade) Dose Ordered Sig/Kiran Route PRN Reason Start Time Stop Time Status Last Admin Dose Admin Acetaminophen (Tylenol Tab) 650 mg Q4HP PRN PO MILD PAIN (PS 1-4) 01/25/21 20:25 02/01/21 09:33 Albuterol/ Ipratropium (Combivent Respimat 100-20mcg) 1 puff RTID INH 01/25/21 20:00 02/01/21 13:17 Apixaban (Eliquis) 5 mg BID PO 01/25/21 21:00 02/01/21 09:22 Ascorbic Acid (Vitamin C) 500 mg DAILY PO 01/26/21 09:00 02/01/21 09:21 Dextrose (Dextrose 50%) 25 ml ASDIRECTED PRN IV SEE LABEL COMMENTS 01/30/21 11:55 Diazepam (Valium) 2.5 mg TID PO 02/01/21 12:20 02/01/21 15:38 DC Diazepam (Valium) 2.5 mg TIDP PO 02/01/21 15:40 UNV Diazepam (Valium) 5 mg TID PO 01/25/21 21:00 02/01/21 12:24 DC 01/31/21 20:36 Furosemide (Lasix) 60 mg DAILY PO 01/26/21 09:00 02/01/21 09:22 Glucagon (Glucagon) 1 mg ASDIRECTED PRN SC SEE LABEL COMMENTS 01/30/21 11:55 Glucose (Glucose) 16 GM ASDIRECTED PRN PO SEE LABEL COMMENTS 01/30/21 11:55 Insulin Human Lispro (HumaLOG INSULIN) SEE PROTOCOL TABLE AC SC 01/30/21 12:00 01/30/21 12:31 Lidocaine (Lidoderm Patch) 1 patch DAILY TD 01/27/21 12:00 01/30/21 12:31 DC 01/30/21 09:47 Lidocaine (Lidoderm Patch) 2 patch DAILY TD 01/30/21 09:00 01/30/21 12:19 DC Lidocaine (Lidoderm Patch) 2 patch DAILY TD 01/31/21 09:00 02/01/21 09:21 Metoprolol Tartrate (Lopressor) 50 mg BID PO 01/25/21 21:00 01/28/21 11:20 DC 01/28/21 08:27 Metoprolol Tartrate (Lopressor) 50 mg Q8H PO 01/28/21 14:00 01/31/21 22:09 Non-Formulary Medication ( See Comment Field Below ) REMOVE LIDODERM PATCH DAILY@21 XX 01/27/21 21:00 01/30/21 23:59 DC 01/30/21 20:40 Non-Formulary Medication ( See Comment Field Below ) REMOVE LIDODERM PATCH DAILY@21 XX 01/31/21 21:00 Oxycodone HCl (Roxicodone, Oxyir) 5 mg Q6HP PRN PO PAIN 02/01/21 12:20 Oxycodone HCl (Roxicodone, Oxyir) 7.5 mg Q6HP PRN PO PAIN 01/25/21 20:25 02/01/21 12:24 DC 01/31/21 05:26 Pancrelipase (Creon-24) 2 ea WM PO 01/26/21 08:00 02/01/21 09:32 Pantoprazole Sodium (Protonix) 40 mg BID PO 01/25/21 21:00 02/01/21 09:22 Polyethylene Glycol (Miralax) 1 pkt DAILY PRN PO CONSTIPATION 01/25/21 20:25 Senna/Docusate Sodium (Senokot S) 2 tab BID PO 01/25/21 21:00 02/01/21 09:22 Sodium Chloride ([place] Nasal [place]) 2 spray TID NA 01/25/21 21:00 01/30/21 20:40 Sucralfate (Carafate) 1 gm ACHS PO 01/25/21 21:00 02/01/21 09:21 Tiotropium [place] (Spiriva Handihaler) 1 inhalation DAILY@08 INH 01/26/21 08:00 Vitamin D (Vitamin D) 1,000 units QAM PO 01/26/21 09:00 02/01/21 09:22 CHIRAG LARA MD February 01, 2021 16:11
[2021-02-01] MEDS ORDERED: diazePAM 5MG TABLET PO PRN (16:30)
[2021-02-01 16:32] LABS: ABG HCO3 42.6 MEQ/L (22.0-26.0)
[2021-02-01 16:34] LABS: ABG BASE EXCESS 14.5 (-2.0-2.0); ABG O2 SATURATION 98.7 % (95.0-99.0); ABG PARTIAL PRESSURE O2 115.7 mmHg (75.0-100.0); ABG STANDARD HCO3 38.4 MEQ/L (22.0-26.0); ABG TOTAL CO2 44.9 MEQ/L (23.0-31.0); ABG pH (ARTERIAL) 7.381 UNITS (7.350-7.450)
[2021-02-01 16:35] LABS: ABG PARTIAL PRESSURE CO2 73.5 mmHg (35.0-45.0)
[2021-02-01] MEDS ORDERED: PILL CUTTER 1 EACH XX PRN (16:35)
[2021-02-01 16:52] LABS: BASO % 0.4 % (0.0-1.0); EOS # 0.1 10^3/uL (0.0-0.5); EOS % 1.2 % (0.0-3.0); HEMOGLOBIN 12.5 g/dl (12.0-15.5); LYMPH # 0.9 10^3/uL (1.5-5.0); LYMPH % 9.8 % (24.0-44.0); MEAN CORPUSCULAR HEMOGLOBIN 31.6 pg (27.0-33.0); MEAN CORPUSCULAR HGB CONC 30.5 g/dl (32.0-36.5); MEAN CORPUSCULAR VOLUME 103.8 fl (80.0-96.0); MONO # 0.6 10^3/uL (0.0-0.8); MONO % 6.8 % (2.0-8.0); NEUTROPHILS # 7.3 10^3/uL (1.5-8.5); NEUTROPHILS % 81.5 % (36.0-66.0); PLATELET COUNT, AUTOMATED 182 10^3/uL (150-450); RED BLOOD COUNT 3.95 10^6/uL (4.00-5.40)
--- NOTE | 2021-02-01 17:04 | REP ---
INDICATION: monitor left sided pleural effusion COMPARISON: 01/28/2021. TECHNIQUE: AP and lateral. FINDINGS: Moderate left effusion has increased. Mild right effusion has increased. There are adjacent patchy bibasilar infiltrates or atelectasis. The heart and mediastinum are grossly unchanged. There are degenerative changes of the spine. IMPRESSION: Increasing bilateral pleural effusions left greater than right. <Electronically signed by Stepan Jeffries > 02/01/21 [id number]
[2021-02-01 17:19] LABS: ERYTHROCYTE SEDIMENTATION RATE 37 mm/hr (0-30)
[2021-02-01 17:20] LABS: C REACTIVE PROTEIN QUANTITATIV 5.52 MG/DL (0.00-0.30); CALCIUM LEVEL 8.4 MG/DL (8.8-10.2); CREATININE FOR GFR 1.59 MG/DL (0.55-1.30); GLOMERULAR FILTRATION RATE 33.5 (>39); POTASSIUM SERUM 3.6 MEQ/L (3.5-5.1)
--- NOTE | 2021-02-05 13:39 | PMRDS ---
NAME: ANETA DE SANTIAGO [facility] WT ID#: [id number] : 1945 JOB: [id number] NESSA: 02/01/2021 ACCT: [id number] DOCTOR: CHIRAG LARA MD PMR DISCHARGE SUMMARY DATE OF ADMISSION: 01/25/2021 DATE OF DISCHARGE: 02/01/2021 CHIEF COMPLAINT/DISCHARGE DIAGNOSIS: Congestive heart failure (CHF) exacerbation. HISTORY OF PRESENT ILLNESS: A 75-year-old female with a past medical history of atrial fibrillation, chronic obstructive pulmonary disease (COPD), pulmonary hypertension, obstructive sleep apnea (LEANNE), not on continuous positive airway pressure (CPAP), chronic hypoxemia, on oxygen, diabetes, back pain, and multiple joint osteoarthritis (OA), on chronic opioids, who fell at home and presented to [facility] ([facility] Emergency Department (ED) on 01/13/2021 complaining of back pain and abdominal pain. She was found to be in congestive heart failure (CHF) exacerbation with rapid ventricular response (RVR) and was diuresed and monitored on telemetry. She had bilateral pleural effusions, left greater than right, in the setting of CHF and underwent a left thoracentesis on 01/22/2012 with results showing transudative fluid. She complained of continued abdominal pain, thought to be due to constipation due to chronic opioid use; however, CT abdomen and pelvis revealed "mild dilation of the common bile duct, a 10 mm stable, mild left-sided colonic diverticulosis, enlarging right adrenal myelolipoma, now measuring up to 6.4 cm. Fatty liver, calcified granulomas in the right lobe of liver." Case was discussed with gastrointestinal (GI), who recommended addition of Creon and to continue proton pump inhibitor (PPI) and sucralfate with outpatient followup. He was evaluated by therapy and found to have impairments in mobility and activities of daily living (ADLs), and deemed medically appropriate for discharge to acute rehabilitation unit (ARU). DISCHARGE MEDICATIONS: As per history of present illness(HPI). HOSPITAL COURSE: Patient was admitted and enrolled in a comprehensive physical therapy (PT)/occupational therapy (OT) program. She received 24-hour nursing supervision, and weekly team meetings were held to discuss his progress. For her history of CHF, patient was maintained on Lasix and fluid restriction with daily weights. Followup chest x-ray on 01/28/2021 showed improvements in her pleural effusions, and x-ray of her ankle was performed on the left side on 01/28/2021 due to concern for fracture in the setting of recent fall. X-ray of ankle was negative for fracture. Patient's pain was controlled with oxycodone and Valium, which she took at home. She requested a Lidoderm patch for her low back, which improved her pain. On 02/01/2021 patient was found to have increased lethargy, appeared more fluid overloaded. Arterial blood gas (ABG) was ordered, showing a pCO2 of 73, BNP 10,000, and chest x-ray showing worsening effusions. Patient was urgently transferred to intensive care unit (ICU) for CHF exacerbation. DISCHARGE MEDICATIONS: Not applicable. FUNCTIONAL HISTORY ON DISCHARGE: Patient was contact guard for ambulation. Thank you for this referral.
== END 2021-02-01 18:35 | disposition short-term general hospital (02) | DRG 948 ==
LOC: M PM&R 19:00
PROVIDERS: ADMIT Physical Medicine & Rehabilitation; ATTEND Physical Medicine & Rehabilitation
DX: R53.1 Weakness (principal); I48.20 Chronic atrial fibrillation, unspecified; J96.11 Chronic respiratory failure with hypoxia; J96.12 Chronic respiratory failure with hypercapnia; J44.9 Chronic obstructive pulmonary disease, unspecified; I27.20 Pulmonary hypertension, unspecified; G47.33 Obstructive sleep apnea (adult) (pediatric); E11.9 Type 2 diabetes mellitus without complications; M54.5 Low back pain; M15.9 Polyosteoarthritis, unspecified; Z99.81 Dependence on supplemental oxygen; K76.0 Fatty (change of) liver, not elsewhere classified; K76.89 Other specified diseases of liver; Z74.09 Other reduced mobility; Z74.1 Need for assistance with personal care; D35.01 Benign neoplasm of right adrenal gland; R91.8 Other nonspecific abnormal finding of lung field; K59.03 Drug induced constipation; T40.2X5A Adverse effect of other opioids, initial encounter; N63.20 Unspecified lump in the left breast, unspecified quadrant; Z79.01 Long term (current) use of anticoagulants; Z91.040 Latex allergy status; Z88.1 Allergy status to other antibiotic agents; Z91.048 Other nonmedicinal substance allergy status; I50.9 Heart failure, unspecified; F41.1 Generalized anxiety disorder; R91.1 Solitary pulmonary nodule; R10.9 Unspecified abdominal pain; N63.0 Unspecified lump in unspecified breast

== ENCOUNTER 2021-02-01 17:00 | Inpatient (IN) | payer MEDICARE, OTHER ==
[2021-02-01] VITALS (7 sets, daily range): BP systolic 90–134; BP diastolic 52–81
[~2021-02-01] VITALS: Ht 147.3 cm; Wt 82.5 kg
[2021-02-01] MEDS ORDERED: FUROSEMIDE 40MG/4ML VIAL (J1940) IV SCH ×2 (17:05→18:00)
[2021-02-01] MEDS ORDERED: DEXTROSE 50% 50 ML SYRINGE IV PRN (17:15)
[2021-02-01] MEDS ORDERED: ACETAMINOPHEN 500 MG TAB PO PRN (17:15)
[2021-02-01] MEDS ORDERED: GLUCAGON INJ 1MG VIAL SC PRN (17:15)
[2021-02-01] MEDS ORDERED: GLUCOSE 4GM CHEW TABLET PO PRN (17:15)
[2021-02-01] MEDS ORDERED: IPRATROPIUM 0.5MG/ALBUTEROL 2.5MG INH SOL UD 3ML (DUONEB) NEB PRN (17:15)
[2021-02-01 18:34] LABS: ABG BASE EXCESS 14.8 (-2.0-2.0); ABG PARTIAL PRESSURE O2 74.7 mmHg (75.0-100.0); ABG STANDARD HCO3 38.6 MEQ/L (22.0-26.0); ABG TOTAL CO2 45.2 MEQ/L (23.0-31.0); ABG pH (ARTERIAL) 7.384 UNITS (7.350-7.450)
[2021-02-01 18:35] LABS: ABG PARTIAL PRESSURE CO2 73.6 mmHg (35.0-45.0)
--- NOTE | 2021-02-01 18:45 | HPE ---
HISTORY AND PHYSICAL DATE OF ADMISSION: 02/01/2021 HISTORY OF PRESENT ILLNESS: Aracelis is seen in the ARU being transferred to the intensive care unit essentially being discharged to ARU and admitted to ICU. I was called by Dr. Zavala as the patient had been increasingly lethargic as the course of the day was going by. I spoke to her , he says she was "breathing more shallow," and was falling asleep in mid sentence. Prior to my arrival, stat ABG was done, which showed increasing CO2 retention. Her usual pCO2 is in the low to mid 50s and it was 73. She had a preserved pH of 7.38. Review of her medication list shows she is taking Valium 5 mg t.i.d. scheduled until this morning, as well as receiving opiates for her pain. She has an echocardiogram done within the last year that showed a small pericardial effusion, ejection fraction of 95%, right ventricular hypertrophy, and pulmonary hypertension. PAST MEDICAL HISTORY: 1. Chronic hypoxic respiratory failure on chronic O2 at 2 liters nasal cannula. 2. LEANNE on CPAP. 3. Type 2 diabetes. 4. Chronic back pain. 5. She was admitted with congestive heart failure recently and had a therapeutic pleurocentesis for 700 mL approximately one week ago. 6. Atrial fibrillation for which she is on chronic anticoagulant therapy with Eliquis rate controlled with metoprolol. OTHER PAST HISTORY: 1. Right adrenal myolipoma. 2. Left breast mass found on recent CT scan that requires outpatient follow-up. 3. Right upper lobe nodule on CT scan that requires outpatient follow-up. SOCIAL HISTORY: She quit smoking in the past. No alcohol use. . PAST SURGICAL HISTORY: 1. Left ankle ORIF. 2. Bilateral carpal tunnel repair. 3. Appendectomy. / 4. Umbilical hernia repair. FAMILY HISTORY: Non-contributory. REVIEW OF SYSTEMS: She denies cough. She says she is more short of breath. She says that she feels "achy" all over. She has a lot of left knee pain where she looks like she had a recent fall. PHYSICAL EXAMINATION: VITAL SIGNS: Last done about three hours ago blood pressure 113/65, pulse of 92, respiratory rate recorded as 18, O2 saturation 96% on 2 liters, temperature 97 degrees. GENERAL APPEARANCE: She is just back from getting a chest x-ray. She is lying in bed. She looks dyspneic. She has shallow breathing. She has slightly slurred speech and appears drowsy. HEENT: Pupils equal, round, and reactive to light. Pharynx benign. Neck veins are distended bilaterally. LUNGS: Decreased breath sounds both bases. Decreased air movement. HEART: Regular rate and rhythm right around 100. ABDOMEN: Soft and nontender with no masses. EXTREMITIES: There is trace to 1+ peripheral edema. There is ecchymosis around the left knee with a little bit of mild erythema. LABORATORY DATA: ABG on 2 liters 7.38, 73, 115, 98%. White count 9, hemoglobin 12.5, platelets 182,000. Sodium 142, potassium 3.6, BUN 27, creatinine 1.59 (baseline creatinine 1.1). BNP 10,020. C-reactive protein 5.5. IMAGING DATA: Chest x-ray shows increased pleural effusions bilaterally. IMPRESSION: 1. Altered mental status. I think she is excessively sedated from the Valium and the oxycodone. They have now been discontinued. The oxycodone can be given with caution. I have discussed the case with Dr. Gray. We will get a blood gas in another hour and if the pCO2 continues to climb, she might need ventilatory support. 2. Congestive heart failure. I have ordered a stat echocardiogram concerned about pericardial effusion particularly with the distended neck veins. Intravenous (IV) Lasix has been ordered to try to maintain a net diuresis of a liter per day 80 mg IV every six hours. Stat CT of the chest has been ordered. She might require another therapeutic thoracentesis. 3. Atrial fibrillation. Continue metoprolol for rate control. Continue Eliquis, although this might need to be held for the thoracentesis pending results on the chest x-ray. 4. Diabetes. Sliding scale insulin coverage ordered. 5. Breast mass. She will need outpatient follow-up on this. 6. Lung nodule. She will need outpatient follow-up on this. The case was discussed extensively with the prior to the patient's transfer.
[2021-02-01] MEDS: IPRATROPIUM 0.5MG/ALBUTEROL 2.5MG INH SOL UD 3ML (DUONEB) NEB SCH (21:03)
[2021-02-01] MEDS: SUCRALFATE 1 GM TAB PO SCH (21:36)
[2021-02-01] MEDS: APIXABAN 5 MG TAB (ELIQUIS) PO SCH (21:36)
[2021-02-01] MEDS: METOPROLOL TART 50 MG TAB PO SCH (21:36)
--- NOTE | 2021-02-01 22:18 | REPVR ---
PROCEDURE INFORMATION: Exam: CT Chest Without Contrast; Diagnostic Exam date and time: 02/01/2021 8:32 PM Age: 75 years old Clinical indication: Shortness of breath; Additional info: SOB TECHNIQUE: Imaging protocol: Diagnostic computed tomography of the chest without contrast. 3D rendering (Not supervised by radiologist): MIP and/or 3D reconstructed images were created by the technologist. Radiation optimization: All CT scans at this facility use at least one of these dose optimization techniques: automated exposure control; mA and/or kV adjustment per patient size (includes targeted exams where dose is matched to clinical indication); or iterative reconstruction. COMPARISON: 1. CT Chest without contrast 2021-01-13 15:[address] ANGIO CHEST 2020-11-11 06:55 FINDINGS: Lungs: Associated compressive pulmonary atelectasis. Noncalcified indeterminate 7 mm right upper lobe pulmonary nodule is unchanged. Pleural spaces: Small to moderate bilateral pleural effusions. Heart: Moderate cardiac enlargement. Pulmonary arteries: Moderate pulmonary artery enlargement. Aorta: Unremarkable. No aortic aneurysm. Lymph nodes: Unremarkable. No enlarged lymph nodes. Liver: Unchanged liver calcifications. Adrenal glands: Unchanged right adrenal myelolipoma measuring 6.5 cm. Stomach and bowel: Questionable partially visualized transverse colonic wall thickening, correlate. Partially visualize several colonic diverticula. Questionable gastric wall thickening and or ulcers. Bones/joints: Moderate thoracic spondylosis. Mild thoracic spondylosis. Mild levoconvex thoracic curvature. Soft tissues: Unchanged indeterminate left breast nodule measuring 1.4 cm, recommend follow-up. IMPRESSION: 1. Small to moderate bilateral pleural effusions. Associated compressive pulmonary atelectasis. 2. Moderate cardiac enlargement. 3. Noncalcified indeterminate 7 mm right upper lobe pulmonary nodule is unchanged. 4. Unchanged indeterminate left breast nodule measuring 1.4 cm, recommend follow-up. 5. Questionable partially visualized transverse colonic wall thickening, correlate. 6. Questionable gastric wall thickening and or ulcers. 7. Moderate cardiac enlargement. COMMENTS: As per Fleischner Society guidelines for follow-up and management of pulmonary nodules: For patients at low risk (minimal or absent history of smoking and of other known risk factors), recommend initial follow-up chest CT at 6-12 months then at 18-24 months if no change. For patient at high risk (history of smoking or of other known risk factors), recommend initial follow-up chest CT at 3-6 months, then at 9-12 and 24 months if no change. Electronically signed by: Pete Baig On 02/01/2021 22:17:42 PM
[2021-02-01] MEDS: HumaLOG INSULIN (NovoLOG) PER UNIT SC SCH (23:48)
[2021-02-02] VITALS (21 sets, daily range): BP systolic 101–137; BP diastolic 55–84
[2021-02-02] MEDS: IPRATROPIUM 0.5MG/ALBUTEROL 2.5MG INH SOL UD 3ML (DUONEB) NEB SCH ×2 (01:16→07:13)
[2021-02-02 05:15] LABS: MEAN CORPUSCULAR HGB CONC 30.6 g/dl (32.0-36.5); MEAN CORPUSCULAR VOLUME 101.4 fl (80.0-96.0); PLATELET COUNT, AUTOMATED 188 10^3/uL (150-450); RED BLOOD COUNT 3.55 10^6/uL (4.00-5.40); WHITE BLOOD COUNT 8.6 10^3/uL (4.0-10.0)
[2021-02-02 05:43] LABS: ABG BASE EXCESS 14.5 (-2.0-2.0); ABG HCO3 39.9 MEQ/L (22.0-26.0); ABG O2 SATURATION 98.7 % (95.0-99.0); ABG PARTIAL PRESSURE CO2 53.4 mmHg (35.0-45.0); ABG STANDARD HCO3 38.3 MEQ/L (22.0-26.0); ABG TOTAL CO2 41.5 MEQ/L (23.0-31.0); ABG pH (ARTERIAL) 7.491 UNITS (7.350-7.450)
[2021-02-02] MEDS: HumaLOG INSULIN (NovoLOG) PER UNIT SC SCH ×4 (05:44→21:00)
[2021-02-02 05:45] LABS: CALCIUM LEVEL 7.9 MG/DL (8.8-10.2); CREATININE FOR GFR 1.2 MG/DL (0.55-1.30); GLOMERULAR FILTRATION RATE 46.4 (>39); POTASSIUM SERUM 3.2 MEQ/L (3.5-5.1)
[2021-02-02] MEDS: METOPROLOL TART 50 MG TAB PO SCH ×3 (05:57→20:10)
[2021-02-02] MEDS: FUROSEMIDE 40MG/4ML VIAL (J1940) IV SCH ×2 (05:59→17:42)
[2021-02-02] MEDS: SUCRALFATE 1 GM TAB PO SCH ×4 (07:30→20:07)
[2021-02-02] MEDS ORDERED: MAG SULF 1GM/100ML (MAG RUN) 1 GM in IV 1 EA IV ONE (08:50)
--- NOTE | 2021-02-02 09:24 | CR ---
CONSULTATION DATE: 02/01/2021 REASON FOR CONSULTATION: Left knee, rule out septic arthritis. HISTORY OF PRESENT ILLNESS: This 75-year-old female was consulted to me by the hospitalist. They were recently transferred to the ICU for increasing lethargy. There was concern about possibly a left knee septic arthritis. The patient is a slightly poor historian, but she does state she has had one big fall on a knee at some point. PAST MEDICAL HISTORY: 1. Chronic hypoxic respiratory failure. 2. LEANNE on CPAP. 3. Type 2 diabetes. 4. Chronic back pain. 5. Congestive heart failure. 6. Atrial fibrillation on Eliquis. CURRENT MEDICATIONS: 1. Pantoprazole. 2. Pancrealipase. 3. Insulin. 4. Metoprolol. 5. Eliquis. 6. Sucralfate. 7. Ipratropium. 8. Lasix. 9. Oxycodone. 10. Tylenol. 11. Glucagon. 12. Lasix. ALLERGIES: ADHESIVE TYPE, AZITHROMYCIN, LATEX. PAST SURGICAL HISTORY: 1. Left ankle ORIF. 2. Bilateral carpal tunnel release. 3. Appendectomy. 4. Umbilical hernia repair. REVIEW OF SYSTEMS: Shakes all over. Left knee pain and lower extremity pain. PHYSICAL EXAMINATION: VITAL SIGNS: Reveal she is afebrile and this was at 6:45 this evening. She is not tachycardic. Blood pressure appears stable. GENERAL: She responds appropriately, but is slightly confused. EXTREMITIES: Examination of her upper and lower extremities revealed no obvious red, hot, or swollen joints. She does have what appears to be a combination of slightly newer and older ecchymosis on the anterior aspect of the left knee. This is a closed injury. No effusion. Her range of motion is at least 0-90 degrees. She has normal sensation and motor function in the foot. She is able to dorsiflex and plantarflex the foot and wiggles her toes. No redness or warmth of the knee or the ankle in lower extremities nor the upper extremities. Minimal pain with range of motion testing of the knee. She is able to hold the leg up straight and flex the knee up actively to 0-45 degrees. LABORATORY DATA: Reveals a white blood cell count of 9, neutrophil percentage 81.5, ESR 37, and CRP 5.5. IMAGING DATA: There is no knee imaging or x-rays recently. ASSESSMENT AND PLAN: This 75-year-old female has an extremely low suspicion for a cellulitis or an acute septic joint of her left knee or her left lower extremity. I do suggest that we start with radiographs of the left knee and delay on the MRI for now. I have asked the nurse to put in this order. This is to rule out a fracture. I have a low suspicion again of this. For now, I see no role for antibiotics or acute irrigation or debridement of the left knee or ankle. Please call with further concerns. Thank you very much for this consultation.
[2021-02-02] MEDS: CREON-24 CAPSULE PO SCH ×3 (09:41→17:37)
[2021-02-02] MEDS: APIXABAN 5 MG TAB (ELIQUIS) PO SCH ×2 (09:42→20:08)
[2021-02-02] MEDS: MAG SULF 1GM/100ML (MAG RUN) 1 GM in IV 1 EA IV SCH ×2 (09:42→11:01)
[2021-02-02] MEDS: PANTOPRAZOLE 40MG TAB (PROTONIX) PO SCH (09:42)
[2021-02-02] MEDS: POTASSIUM CHLORIDE 10 MEQ SR TABLET PO SCH ×2 (09:43→20:07)
--- NOTE | 2021-02-02 09:51 | ECHO ---
DATE OF PROCEDURE: 02/01/2021 Age: 75 Gender: Female Height: 170 cm Weight: 85 kg REFERRING PHYSICIAN: Robin Bettencourt MD. INDICATION: Dyspnea and pericardial effusion. MEASUREMENTS: IVS 1.1 cm LV 3.3 cm LVPW 1.1 cm LA 4.3 cm Aorta 2.5 cm RV 1.6 cm IVC 2.0 cm Ascending aorta 2.6 cm FINDINGS: This study is of fair technical quality. Underlying atrial fibrillation with rapid ventricular response. Left ventricle is normal size. It has normal contractility, I estimate EF around 65%. Right ventricle also appears grossly normal. There is severe biatrial enlargement. The aortic valve is sclerotic. There is no insufficiency and trivial stenosis of the valve with peak gradient 12 mmHg. There are degenerative abnormalities of the mitral valve with mitral annular calcifications. There is mild stenosis with mean gradient 4 mmHg, no significant insufficiency of the valve is seen. Tricuspid valve has mild insufficiency. Calculated pulmonary artery pressure is approximately 65 mmHg. Pulmonic valve was not well seen. Small noncompressive pericardial effusion is noted. Inferior vena cava is dilated, but there is some collapse with inspiration indicative of elevated central venous pressure. The aortic root is normal. Aortic arch and abdominal aorta were not seen. Evaluation of diastolic function is inconclusive due to underlying atrial fibrillation. CONCLUSIONS: 1. Study is of fair technical quality. Underlying atrial fibrillation with rapid ventricular response. 2. Normal LV size with normal LV systolic function. 3. Normal RV size and systolic function. 4. Severe biatrial enlargement. 5. Aortic sclerosis with minimal stenosis and no insufficiency. 6. Mild mitral stenosis with no insufficiency. 7. Mild tricuspid insufficiency. 8. High central venous pressure and moderate to severe pulmonary hypertension (estimated PAP 65 mmHg). 9. Small noncompressive pericardial effusion. 10. Left pleural effusion. MTDD
[2021-02-02] MEDS ORDERED: ACETAMINOPHEN *IV* 1,000 MG in IV 1 EA IV ONE (11:00)
--- NOTE | 2021-02-02 12:26 | CR ---
CONSULTATION DATE: 02/02/2021 CHIEF COMPLAINT: Altered mental status and dyspnea. HISTORY OF PRESENT ILLNESS: Ms. Pollard is a 75-year-old female with past medical history of COPD with chronic hypoxemic respiratory failure on nasal cannula oxygen supplementation, LEANNE noncompliant with CPAP, diabetes, chronic back pain, CHF, atrial fibrillation, who was admitted recently for an acute CHF exacerbation. The patient was noted at that time to have evidence of decompensated heart failure with pleural effusion which was sampled and drained on 01/21/2021 and appeared transudative with negative cytology likely in the setting of her decompensated heart failure. Thoracentesis is left-sided thoracentesis. The patient had also had a mechanical fall and landed on her left side and her knee. The patient was then evaluated by PT/OT and was noted to have issues with mobility and her ADLs and so was discharged to ARU on 01/25/2021. While in ARU the patient continued to report pain particularly in her left knee but she also reported chronic but generalized body aches and musculoskeletal pain. She was on Oxycodone for pain and was also receiving Valium 5 mg three times a day. On 02/01/2021the patient was noted to be more lethargic and had also been noted to have more evidence of dyspnea. She had an ABG performed which had shown normal pH with pCO2 of 73. Her previous ABG on the had shown pCO2 of 69.4. The patient was also noted clinically to have evidence of some increasing lower extremity edema as well as diminished breath sounds bilaterally. Pulmonary was consulted for the possibility of BiPAP, however, with her ABG showing appropriate compensation of her chronic hypercapnic respiratory failure and not significantly changed from her previous ABG her encephalopathy is more likely to begin in the setting of medications, particularly with her benzodiazepine as well as her opioids. She was noted to have worsening renal function as well on her labs that day which likely contributed to some increased medication side effects. She did also clinically appear to have evidence of decompensated heart failure which likely has been contributing to some of her worsening dyspnea. The patient was ordered for Lasix for diuresis and she was transferred to the ICU. I also held her opioid pain medication and other sedating medication. She was ordered for repeat ABG in the morning. PAST MEDICAL AND SURGICAL HISTORY: 1. COPD with chronic hypoxemic respiratory failure on 2 liters nasal cannula oxygen. 2. LEANNE noncompliant with CPAP. The patient reports that she does not have any machine at home even currently. 3. Diabetes. 4. Chronic back pain. 5. CHF with history of pulmonary hypertension. 6. Atrial fibrillation on anticoagulation. 7. Right adrenal myelolipoma. 8. History of left breast mass on recent CT as well as history of right upper lobe nodule. 9. Left ankle ORIF. 10. Bilateral carpal tunnel repair. 11. Appendectomy. 12. Umbilical hernia repair. FAMILY HISTORY: Noncontributory. SOCIAL HISTORY: The patient is a former smoker, denies any significant alcohol use. PHYSICAL EXAMINATION: VITALS: Temperature 97.7, pulse 58, respirations 22, blood pressure 120/59, O2 sat 95% on 2 liters nasal cannula. In 0, out almost 1 liter at negative. GENERAL: The patient is drowsy but is arousable to voice and answering questions appropriately. She does not appear to be in any acute respiratory distress currently and is not using the accessory muscles for respiration. HEENT: Normocephalic, atraumatic. Pupils reactive to light bilaterally. Moist mucous membranes noted. NECK: Supple, trachea midline. There is positive JVD. CARDIAC: Irregularly irregular with normal S1, S2, faint systolic murmur. PMI is displaced laterally. LUNGS: Diminished breath sounds bilaterally at the bases with few crackles at the bases. ABDOMEN: Obese, soft, nontender, non-distended, no palpable masses. EXTREMITIES: There is +1 to 2 pitting edema in the bilateral lower extremities with the left slightly more than the right. There is evidence of ecchymosis in the left knee. LABS: WBC 8.6, hemoglobin 11, platelets 188. Chemistries: Sodium 143, potassium 3.2, chloride 97, bicarb 41, BUN 25, creatinine 1.20, trending down from 1.59 yesterday, glucose is 73, mag 1.4. ABG yesterday: pH 7.384, pCO2 73.6, pO2 74.7. Repeat ABG this morning: pH 7.491, pCO2 ___, pO2 of 109. IMAGING DATA: CT chest showed bilateral pleural effusions with compressive atelectasis in the lower lobes, left more than right. There is also nodule in the right upper lobe peripherally measuring 7 mm which is unchanged from the previous CT chest earlier this month. There is cardiomegaly noted. The pulmonary artery appears enlarged suggestive of pulmonary hypertension. In the abdomen there is questionable thickening of the transverse colon as well as questionable gastric wall thickening. ASSESSMENT AND PLAN: Ms. Pollard is a 75-year-old female with past medical history of COPD with chronic hypoxemic respiratory failure, LEANNE noncompliant with CPAP, CHF with pulmonary hypertension, atrial fibrillation, diabetes, who presented initially with mechanical fall and decompensated heart failure earlier this month. She was diuresed and had also had a left-sided thoracentesis which appeared transudative in the setting of her heart failure. With her fall and issues with mobility, she was transferred to ARU where she was receiving opioid pain medication as well as benzodiazepine. Yesterday the patient was noted to be more encephalopathic as well as dyspneic. She did have an ABG done yesterday which showed chronic hypercarbic respiratory failure which was well compensated. The patient's encephalopathy was therefore thought to be in the setting of medications, particularly her benzodiazepine and opioids which was also likely exacerbated with her worsening renal function. The patient also clinically appeared to be in evidence of decompensated heart failure which likely has been contributing to her chronic hypercarbia and worsening dyspnea. She was given Lasix for diuresis and she was not placed on BiPAP. Her repeat ABG this morning does show improvement with diuretics. Her mental status has also improved. She is more arousable today but does continue to be drowsy. She is answering questions appropriately. Encephalopathy likely in the setting of medication with opioids and benzodiazepine. With her history of chronic hypercarbic respiratory failure and her history of sleep apnea with noncompliance with CPAP would be very cautious about opioids and benzodiazepine medications. Would avoid sedating medications if at all possible and continue with other non-opioid pain regimen if possible. Will give the patient IV Tylenol for her pain. Will continue to hold her opioids at this time as well as her benzodiazepine. Decompensated CHF with history of pulmonary hypertension. Her echocardiogram does show evidence of elevated CVP and clinically she does have evidence of decompensated heart failure with lower extremity edema as well as imaging bilateral pleural effusions and pulmonary edema. Continue with Lasix. Was changed yesterday to 60 mg every 12 hours and continue to monitor her ins and outs. Will replete her electrolytes, particularly her potassium and magnesium with her diuretics. Her renal function has improved with diuresis suggesting degree of cardiorenal syndrome but would continue to closely monitor. Chronic hypoxemic respiratory failure and chronic hypercarbic respiratory failure, appears at baseline. She is on 2 liters nasal cannula oxygen chronically. She does not follow up with anyone from pulmonary either for her COPD or for her sleep apnea which is not compliant with. Continue with nebulized bronchodilators as needed. Would restart her home inhaler of Spiriva daily. Continue with nasal cannula oxygen supplementation to maintain O2 sat of 88 to 92% given her chronic hypercarbia. DVT prophylaxis, on Eliquis. CODE STATUS: Full code. Please do not hesitate to call with any further questions or concerns.
[2021-02-02] MEDS: TIOTROPIUM INHALER/CAPSULE (SPIRIVA) INH SCH (13:09)
--- NOTE | 2021-02-02 14:01 | IPNPDOC ---
Subjective Date Seen The patient was seen on 02/02/21. Subjective Chief Complaint/HPI Alert and oriented x 3, on 2 LPM, breathing comfortably. Vitals stable. Objective Physical Examination General Exam: Positive: No Acute Distress Eye Exam: Positive: EOMI Neck Exam: Negative: JVD Chest Exam: Positive: Normal air movement; Negative: Wheezing Heart Exam: Positive: Rate Normal Telemetry: Positive: No significant arrhythmia Extremity Exam: Positive: Tenderness, Swelling Skin Exam: Positive: Nl turgor and temperature Assessment /Plan Assessment # Acute toxic metabolic encephalopathy 2/2 hypercapnea and narcotics/sedatives - improved - transfer to med/surg floor - continue to hold sedating meds # Acute on chronic diastolic CHF - continue with diuresis - will review echo # Left Knee pain - ortho consult reviewed - await knee images and further recommendations Plan/VTE VTE Prophylaxis Ordered?: Yes VS, I&O, 24H, Fishbone Vital Signs/I&O Vital Signs Date Time Temp Pulse Resp B/P (MAP) Pulse Ox O2 Delivery O2 Flow Rate FiO2 02/02/21 12:00 97.8 100 26 130/84 (99) 97 Nasal Cannula 2.0 l I&O- Last 24 Hours up to 6 AM 02/02/21 06:00 Intake Total 0 ml Output Total 1025 ml Balance -1025 ml Laboratory Data 24H LABS Laboratory Tests 2 02/01/21 18:30: Blood Gas Bicarbonate Standard 38.6H, Arterial Blood pH 7.384, Arterial Blood Partial Pressure CO2 73.6*H, Arterial Blood Partial Pressure O2 74.7L, Arterial Blood Total CO2 45.2H, Arterial Blood HCO3 43.0H, Arterial Blood Base Excess 14.8H, Arterial Blood Oxygen Saturation 95.0 02/01/21 23:47: Bedside Glucose (Misc Panel) 91 02/02/21 05:00: Nucleated Red Blood Cells % (auto) 0.0, Anion Gap 5L, Glomerular Filtration Rate 46.4, Calcium Level 7.9L, Magnesium Level 1.4L 02/02/21 05:40: Blood Gas Bicarbonate Standard 38.3H, Arterial Blood pH 7.491H, Arterial Blood Partial Pressure CO2 53.4H, Arterial Blood Partial Pressure O2 109.0H, Arterial Blood Total CO2 41.5H, Arterial Blood HCO3 39.9H, Arterial Blood Base Excess 14.5H, Arterial Blood Oxygen Saturation 98.7 02/02/21 05:41: Bedside Glucose (Misc Panel) 83 02/02/21 12:13: Bedside Glucose (Misc Panel) 143H CBC/BMP Laboratory Tests 02/02/21 05:00 LEO NOLASCO MD February 02, 2021 13:59
--- NOTE | 2021-02-02 14:51 | REP ---
INDICATION: rule out fracture COMPARISON: 01/13/2021 TECHNIQUE: Four views FINDINGS: There is no change in the appearance of the osseous structures compared to the prior exam. Degenerative changes are again seen status quo. IMPRESSION: No acute abnormality. <Electronically signed by Alok Killian > 02/02/21 [id number]
[2021-02-02] MEDS: oxyCODONE 5MG TAB PO PRN (20:08)
[2021-02-03 04:00] VITALS: BP 119/58
[2021-02-03] MEDS: oxyCODONE 5MG TAB PO PRN (04:35)
[2021-02-03] MEDS: METOPROLOL TART 50 MG TAB PO SCH ×3 (04:36→21:46)
[2021-02-03] MEDS: FUROSEMIDE 40MG/4ML VIAL (J1940) IV SCH ×2 (04:37→19:01)
[2021-02-03 05:42] LABS: HEMATOCRIT 36.5 % (36.0-47.0); HEMOGLOBIN 10.9 g/dl (12.0-15.5); MEAN CORPUSCULAR HEMOGLOBIN 30.3 pg (27.0-33.0); MEAN CORPUSCULAR HGB CONC 29.9 g/dl (32.0-36.5); MEAN CORPUSCULAR VOLUME 101.4 fl (80.0-96.0); PLATELET COUNT, AUTOMATED 228 10^3/uL (150-450)
[2021-02-03 06:07] LABS: CALCIUM LEVEL 8.1 MG/DL (8.8-10.2); CREATININE FOR GFR 1.13 MG/DL (0.55-1.30); GLOMERULAR FILTRATION RATE 49.7 (>39); MAGNESIUM LEVEL 1.5 MG/DL (1.8-2.4); POTASSIUM SERUM 3.8 MEQ/L (3.5-5.1)
[2021-02-03] MEDS ORDERED: MAG SULF 1GM/100ML (MAG RUN) 1 GM in IV 1 EA IV ONE (07:25)
[2021-02-03] MEDS: HumaLOG INSULIN (NovoLOG) PER UNIT SC SCH ×4 (07:30→21:00)
[2021-02-03] MEDS: TIOTROPIUM INHALER/CAPSULE (SPIRIVA) INH SCH (07:47)
[2021-02-03 08:00] VITALS: BP 139/79
[2021-02-03] MEDS: PANTOPRAZOLE 40MG TAB (PROTONIX) PO SCH (08:05)
[2021-02-03] MEDS: CREON-24 CAPSULE PO SCH ×3 (08:05→19:00)
[2021-02-03] MEDS: POTASSIUM CHLORIDE 10 MEQ SR TABLET PO SCH ×2 (08:05→21:40)
[2021-02-03] MEDS: APIXABAN 5 MG TAB (ELIQUIS) PO SCH ×2 (08:05→21:40)
[2021-02-03] MEDS: SUCRALFATE 1 GM TAB PO SCH ×4 (08:06→21:41)
[2021-02-03 12:24] VITALS: BP 123/67
[2021-02-03] MEDS: NORCO, ANEXSIA 5/325MG TABLET (HYDROcodone/ACETAMINOPHEN) PO PRN ×2 (12:25→21:49)
[2021-02-03 15:55] VITALS: BP 99/58
--- NOTE | 2021-02-03 17:15 | IPNPDOC ---
Subjective Date Seen The patient was seen on 02/03/21. Subjective Chief Complaint/HPI c/o sob, oxygen needs at baseline. no chest pain. Reviewed echo results with her Objective Physical Examination General Exam: Positive: No Acute Distress Eye Exam: Positive: EOMI Neck Exam: Negative: JVD Chest Exam: Positive: Normal air movement; Negative: Wheezing Heart Exam: Positive: Rate Normal Telemetry: Positive: No significant arrhythmia Extremity Exam: Positive: Tenderness, Swelling Skin Exam: Positive: Nl turgor and temperature Assessment /Plan Assessment # Acute toxic metabolic encephalopathy 2/2 hypercapnea and narcotics/sedatives - improved # Acute on chronic diastolic CHF # Chronic pul htn - CTA chest normal - continue with diuresis - echo results reviewed with patient # Left Knee pain - ortho consult reviewed - knee xray is normal - start norco prn for pain - continue to hold valium Plan/VTE VTE Prophylaxis Ordered?: Yes (eliquis) VS, I&O, 24H, Fishbone Vital Signs/I&O Vital Signs Date Time Temp Pulse Resp B/P (MAP) Pulse Ox O2 Delivery O2 Flow Rate FiO2 02/03/21 15:55 97.0 79 18 99/58 (72) 90 Nasal Cannula 2.0 I&O- Last 24 Hours up to 6 AM 02/03/21 06:00 Intake Total 980 ml Output Total 1475 ml Balance -495 ml Laboratory Data 24H LABS Laboratory Tests 2 02/02/21 20:41: Bedside Glucose (Misc Panel) 105 02/03/21 05:03: Nucleated Red Blood Cells % (auto) 0.0, Anion Gap 3L, Glomerular Filtration Rate 49.7, Calcium Level 8.1L, Magnesium Level 1.5L 02/03/21 11:47: Bedside Glucose (Misc Panel) 118H 02/03/21 17:07: Bedside Glucose (Misc Panel) 108 CBC/BMP Laboratory Tests 02/03/21 05:03 LEO NOLASCO MD February 03, 2021 17:15
[2021-02-03 18:00] VITALS: BP 136/84
[2021-02-03 22:00] VITALS: BP 124/67
[2021-02-04] VITALS (28 sets, daily range): BP systolic 77–140; BP diastolic 50–73
[2021-02-04] MEDS: FUROSEMIDE 40MG/4ML VIAL (J1940) IV SCH (06:04)
[2021-02-04] MEDS: METOPROLOL TART 50 MG TAB PO SCH ×3 (06:04→21:36)
[2021-02-04] MEDS: NORCO, ANEXSIA 5/325MG TABLET (HYDROcodone/ACETAMINOPHEN) PO PRN (06:06)
[2021-02-04 06:18] LABS: HEMATOCRIT 43.3 % (36.0-47.0); HEMOGLOBIN 12.4 g/dl (12.0-15.5); MEAN CORPUSCULAR HEMOGLOBIN 31.1 pg (27.0-33.0); MEAN CORPUSCULAR HGB CONC 28.6 g/dl (32.0-36.5); MEAN CORPUSCULAR VOLUME 108.5 fl (80.0-96.0); PLATELET COUNT, AUTOMATED 248 10^3/uL (150-450); RED BLOOD COUNT 3.99 10^6/uL (4.00-5.40); WHITE BLOOD COUNT 9.3 10^3/uL (4.0-10.0)
[2021-02-04 06:51] LABS: CALCIUM LEVEL 9.3 MG/DL (8.8-10.2); CREATININE FOR GFR 1.27 MG/DL (0.55-1.30); GLOMERULAR FILTRATION RATE 43.4 (>39); POTASSIUM SERUM 4.9 MEQ/L (3.5-5.1)
[2021-02-04] MEDS: TIOTROPIUM INHALER/CAPSULE (SPIRIVA) INH SCH (07:32)
[2021-02-04] MEDS ORDERED: NALOXONE INJ 0.4MG/1ML VIAL (J2310 PER 1MG) IV STA ×2 (08:20→08:31)
[2021-02-04] MEDS: APIXABAN 5 MG TAB (ELIQUIS) PO SCH ×2 (08:27→21:21)
[2021-02-04] MEDS: PANTOPRAZOLE 40MG TAB (PROTONIX) PO SCH (08:27)
[2021-02-04 08:47] LABS: ABG BASE EXCESS 10.4 (-2.0-2.0); ABG O2 SATURATION 99.3 % (95.0-99.0); ABG PARTIAL PRESSURE O2 206.1 mmHg (75.0-100.0); ABG STANDARD HCO3 34.2 MEQ/L (22.0-26.0); ABG TOTAL CO2 49.3 MEQ/L (23.0-31.0)
[2021-02-04 08:51] LABS: ABG PARTIAL PRESSURE CO2 142.5 mmHg (35.0-45.0); ABG pH (ARTERIAL) 7.117 UNITS (7.350-7.450)
[2021-02-04] MEDS: SUCRALFATE 1 GM TAB PO SCH ×4 (10:00→21:00)
[2021-02-04] MEDS: HumaLOG INSULIN (NovoLOG) PER UNIT SC SCH ×3 (10:01→17:51)
[2021-02-04] MEDS: CREON-24 CAPSULE PO SCH ×3 (10:02→17:51)
[2021-02-04] MEDS: POTASSIUM CHLORIDE 10 MEQ SR TABLET PO SCH ×2 (10:02→21:00)
[2021-02-04] MEDS ORDERED: NS 500 ML IV ONE (10:20)
--- NOTE | 2021-02-04 11:00 | REP ---
INDICATION: central line placement. COMPARISON: Comparison chest x-ray 02/01/2021.. TECHNIQUE: Portable upright AP chest radiograph. FINDINGS: A right internal jugular central venous catheter is seen in place with its tip in the expected location of the superior vena cava. Oxygen delivery tubing and EKG monitoring electrodes are seen. There is blunting of the left lateral pleural angle and some hazy opacity at the right base suggests a small amount of right pleural fluid. Pulmonary vasculature is cephalized. The heart appears enlarged. These findings are unchanged. No new infiltrate is seen. IMPRESSION: Right IJ line in place. No pneumothorax seen. Vascular congestion, cardiomegaly, and small bilateral effusions. <Electronically signed by Darion Rodarte > 02/04/21 [id number]
[2021-02-04 11:43] LABS: ALBUMIN 2.6 GM/DL (3.2-5.2); BILIRUBIN,DIRECT 0.3 MG/DL (0.0-0.2); BILIRUBIN,TOTAL 0.7 MG/DL (0.2-1.0); CK-MB VALUE MASS 1.9 NG/ML (<3.6); MB/CK RELATIVE INDEX 10.56 (< OR =4); TOTAL PROTEIN 5.9 GM/DL (6.4-8.2); TROPONIN I 0.03 NG/ML (< 0.10)
--- NOTE | 2021-02-04 11:55 | IPNPDOC ---
Subjective Date Seen The patient was seen on 02/04/21. Subjective Chief Complaint/HPI This morning. Canals room and arousable to aggressive sternal rub. Arterial blood gas was obtained that showed she had a pH of 7.11 with a PCO2 of 142. It appears that she had been receiving Roxicodone which I was on the impression had been discontinued. The patient is transferred to the ICU for hypercapnic respiratory failure. Objective Physical Examination General Exam: Positive: Other (patient is acutely encephalopathic) Eye Exam: Positive: Conjunctiva & lids normal ENT Exam: Positive: Other ENT (Mucomyst mucous membranes are dry) Neck Exam: Positive: Supple; Negative: JVD Chest Exam: Positive: Diminished, Other (O2 sats are 97%, her breathing is slow and shallow); Negative: Rhonchi, Wheezing Heart Exam: Positive: Rate Normal Telemetry: Positive: No significant arrhythmia Abdomen Exam: Positive: Normal bowel sounds, Soft, Tenderness Extremity Exam: Positive: Swelling Skin Exam: Positive: Other skin issue (left knee with ecchymosis from previous fall) Assessment /Plan Assessment # Acute toxic metabolic encephalopathy 2/2 hypercapnia 2/2 narcotics/sedatives - Transferred to ICU Discussed with Dr. Mendez, will see if she responds to BiPAP will need intubation. -Discontinue all narcotics Patient did not respond to Narcan # Acute on chronic diastolic CHF # b/l pleural effusions # Chronic pul htn - CTA chest normal - continue with diuresis - echo results reviewed with patient - will plan for Left thoracentesis on monday # Left Knee pain secondary to previous mechanical fall at home - ortho consult reviewed - knee xray is normal - hld all narcotic medications - continue to hold valium #DM2 - continue with SS coverage - bG controlled # Left Breast Mass 14 mm - previously noted during last hospitalization will need f/u as outpatient # RUL Lung nodule 7 mm - will need f/u at discharge for this # DVT prophylaxis: eliquis Dispo: tranfer to ICU, d/w Dr. Mendez Plan/VTE VTE Prophylaxis Ordered?: Yes (eliquhung) VS, I&O, 24H, Fishbone Vital Signs/I&O Vital Signs Date Time Temp Pulse Resp B/P (MAP) Pulse Ox O2 Delivery O2 Flow Rate FiO2 02/04/21 10:00 77 21 90/59 (69) 100 NIPPV (BIPAP/CPAP) 40 02/04/21 09:09 2.0 02/04/21 09:07 96.7 I&O- Last 24 Hours up to 6 AM 02/04/21 06:00 Intake Total 200 ml Output Total 500 ml Balance -300 ml Laboratory Data 24H LABS Laboratory Tests 2 02/03/21 11:47: Bedside Glucose (Misc Panel) 118H 02/03/21 17:07: Bedside Glucose (Misc Panel) 108 02/03/21 21:19: Bedside Glucose (Misc Panel) 134H 02/04/21 05:47: Nucleated Red Blood Cells % (auto) 0.0, Anion Gap 2L, Glomerular Filtration Rate 43.4, Calcium Level 9.3 02/04/21 08:30: Blood Gas Bicarbonate Standard 34.2H, Arterial Blood pH 7.117*L, Arterial Blood Partial Pressure CO2 142.5*H, Arterial Blood Partial Pressure O2 206.1H, Arterial Blood Total CO2 49.3H, Arterial Blood HCO3 45.0H, Arterial Blood Base Excess 10.4H, Arterial Blood Oxygen Saturation 99.3H 02/04/21 09:45: Bedside Glucose (Misc Panel) 122H 02/04/21 11:01: Central Line Venous O2 Saturation 85.2, Total Bilirubin 0.7, Direct Bilirubin 0.3H, Aspartate Amino Transf (AST/SGOT) 8, Alanine Aminotransferase (ALT/SGPT) 10L, Alkaline Phosphatase 71, Total Creatine Kinase 18L, Creatine Kinase MB 1.9, Creatine Kinase MB Relative Index 10.56H, Troponin I 0.03, Total Protein 5.9L, Albumin 2.6L, Albumin/Globulin Ratio 0.8L 02/04/21 11:26: CBC/BMP Laboratory Tests 02/04/21 05:47 LEO NOLASCO MD February 04, 2021 11:47
[2021-02-04 11:58] LABS: ABG BASE EXCESS 8.7 (-2.0-2.0); ABG HCO3 38.1 MEQ/L (22.0-26.0); ABG O2 SATURATION 94.9 % (95.0-99.0); ABG PARTIAL PRESSURE O2 75.6 mmHg (75.0-100.0); ABG STANDARD HCO3 32.4 MEQ/L (22.0-26.0); ABG TOTAL CO2 40.6 MEQ/L (23.0-31.0); ABG pH (ARTERIAL) 7.287 UNITS (7.350-7.450)
[2021-02-04 12:00] LABS: ABG PARTIAL PRESSURE CO2 81.6 mmHg (35.0-45.0)
--- NOTE | 2021-02-04 12:03 | RO ---
OPERATIVE NOTE DATE OF OPERATION: 02/04/2021 PROCEDURE: Right internal jugular venous catheter. PREPROCEDURE DIAGNOSIS: Hypotension. POSTPROCEDURE DIAGNOSIS: Hypotension. SURGEON: Lb Mendez D.O. DEALMAKER: None. ANESTHESIA: 1% Lidocaine. DESCRIPTION OF PROCEDURE: I obtained verbal consent over the phone for this procedure from Alexander, the patient's , who is listed as the next of kin. I prepped and draped the patient in a sterile manner in the supine position. Chlorhexidine full sterile barrier precautions were used. Time-out was performed identifying the correct site, correct patient, and correct procedure with two patient identifiers. The right IJ was then ultrasounded under sterile technique. 1% Lidocaine was injected subcutaneously. The [employer] syringe was then introduced into the right IJ on the first pass with return of venous blood flow. Wire was fed through the needle and the needle was removed. There were a few beats of ventricular ectopy. The wire was pulled back and this stopped. A susy in the skin was made and the dilator from the [employer] kit was advanced over the wire and the dilator was removed. Triple-lumen catheter was then advanced into the patient at 15 cm with removal of the wire. All three ports returned venous blood flow and flushed easily. This was sutured in at 15 cm with a sterile impregnated dressing. Post-procedure chest x-ray shows adequate position of the IJ. There were no observed complications.
--- NOTE | 2021-02-04 12:31 | CCN ---
CRITICAL CARE NOTE DATE: 02/04/2021 CRITICAL CARE TIME: 1 hour and 32 minutes. This excludes all procedures. SUBJECTIVE: Ms. Pollard is a 75-year-old female with multiple medical issues, recurrent hospitalizations over the past year, some reportedly for COPD, others for CHF. It appears she was admitted for CHF in December and had continued weakness, went to acute rehab and continued to have problems with mobilization and knee pain, came back to the hospital on 02/01/2021 for acute respiratory failure with altered mental status. It was determined at that point in time the most likely cause was heart failure. On my review of the patient, she is hypersomnolent at bedside but able to respond to stimuli. When I attempt to open her eyes, she will squeeze them shut. She is having spontaneous respirations. She has no oxygen desaturation but I was called because her arterial blood gas showed a significantly elevated pCO2 of 142 with a pH of 7.12. Apparently the patient does have a history of COPD, has a history of obstructive sleep apnea and heart failure, had recent pleural fluid drained in January. She has been noncompliant with her CPAP. The primary physician managing this patient thought that it was likely narcotic use in conjunction with her baseline medical comorbidities that led her to the hypercarbic state. When she arrived to the ICU I placed her on bilevel noninvasive therapy. At 07/07 she was pulling tidal volumes in the mid 400s with an excellent oxygen saturation on 0.40 FiO2. It does appear that over the past few days her bicarb has been climbing on her chemistry panel, now up to 44 today but it has been as high as 48 on the 18 of January and 50 on January 13. Diuresis has been attempted over the past few days with minimal improvement. After placing the patient on BiPAP, she did have some transient hypotension. I did place a central line to obtain central venous oxygen sat and central venous pressure monitoring, especially in the face of a pericardial effusion. I noticed that she had low QRS voltage. I repeated an EKG which does show low voltage QRS but no evidence of ST elevation. The patient did have an echocardiogram on 02/01/2021 which did show a noncompressive pericardial effusion and bi-atrial enlargement. Chest x-ray after line placement showed a blunted left costophrenic angle, cardiomegaly without new infiltrate or mass. OBJECTIVE: Vital signs: Temperature is 96.7, pulse is 77 with low voltage sinus rhythm, respiratory rate of 21, blood pressure ranging from a low of 90/59 with a MAP of 69 to 130/73. Oxygen saturation now is 100% on 0.40 FiO2. This is while on bilevel noninvasive therapy at 20/10. General: The patient appears to be becoming alert with the use of BiPAP. She is responsive to painful stimuli, movement of her extremities. HEENT: Sclerae are clear. Pupils are fairly dilated but reactive, 6 to 7 mm. Mucous membranes appear dry. Jugular venous pressure initially was not elevated. Ultrasound during the time of the hypotension showed easy compression of the IJ. When placing the line after a 500 mL bolus, there is less vascular compression. Neck is supple. No tracheal jugular deviation or mass. Lymph: No cervical, supraclavicular, or axillary adenopathy. Cardiac: Distant S1, S2 without audible murmur, rub, or gallop. There is significant systemic edema. PMI is difficult to palpate due to body habitus. There is more prominent pitting on the right than on the left. Pulmonary: Rales at the bases. Poor chest expansion. Abdomen: Obese, soft, nontender, nondistended, no hepatosplenomegaly. No masses or hernia. Extremities: No cyanosis, clubbing, or edema. The left knee is bruised. There is some minimal bruising over the right radial wrist. Otherwise no other rashes. Neurologic: The patient is having some clonic jerking consistent with CO2 narcosis. The patient is lethargic and responsive only to painful and noxious stimuli. Laboratory evaluation shows a sodium of 144, potassium 4.9, chloride of 90. Bicarb 44, BUN of 25, creatinine of 1.27 with a glucose of 121. Calcium is 8.5, magnesium was 1.5 yesterday. White blood cell count is 9.3, hemoglobin 12.4, platelet count 248. Again, blood gas with pH of 7.12, pCO2 of 142, with a PaO2 of 206. Echocardiogram from 02/01 was felt to be of fair technical quality. There was underlying atrial fibrillation with rapid ventricular response at the time. LV was reportedly normal in size, had normal contractility with an estimated EF of about 65%. Right ventricle also appeared normal. Pulmonary artery pressure was estimated at 65. There was a small noncompressive pericardial effusion. Inferior vena cava was dilated with some collapse with inspiration which says this was indicative of elevated central venous pressure. There was severe bi-atrial enlargement, aortic stenosis with minimal stenosis and a left pleural effusion. CT scan from 02/01 was without contrast. There were small to moderate bilateral pleural effusions with associated compressive atelectasis. There was cardiac enlargement with pericardial effusion, some questionable colonic wall thickening, questionable gastric wall thickening and a breast nodule that requires followup. ASSESSMENT: 1. [id number] hypercarbic, respiratory failure in a patient with known history of chronic hypercarbic respiratory failure. hypoventilation, and noncompliance with CPAP at night with history of recent narcotic administration in the face of decompensated heart failure. The patient does have a small pericardial effusion. At this point in time it does not appear that the patient is in tamponade but this remains an issue that will require monitoring. She has evidence of contraction alkalosis which may have also contributed to her current clinical status. At this point in time we will continue on bilevel noninvasive therapy. We will obtain a central venous oxygen saturation as I do have concern with her true cardiac output. This patient may require a [place] catheter as it has been difficult to assess on echocardiogram. Blood pressure is now more than adequate with a minimal bolus. She may have been intervascularly depleted from attempts from diuresis. We will closely monitor for the need for intubation and the patient has ABG recheck within two hours of initiating bilevel noninvasive therapy. 4. Breast nodule. This will need to be addressed as an outpatient. Should continue on her medical problem list throughout her hospital stay. 5. History of obstructive sleep apnea with noncompliance. There is a possibility of obesity hypoventilation. 6. Reported history of chronic obstructive pulmonary disease. However, this patient is not known to our practice. I do not have pulmonary function testing to deny or confirm this possibility. 7. DVT prophylaxis. The patient is on Eliquis for history of atrial fibrillation with RVR. 8. GI prophylaxis. The patient is on Protonix and Carafate. The patient will be closely monitored in the Intensive Care Unit. Critical care time as mentioned above for acute response for chronic hypercarbic respiratory failure and concern for cardiac status. MTDD
[2021-02-05] VITALS (22 sets, daily range): BP systolic 87–140; BP diastolic 52–75
[2021-02-05 05:00] LABS: BASO % 0.3 % (0.0-1.0); EOS % 0.2 % (0.0-3.0); HEMATOCRIT 38.1 % (36.0-47.0); HEMOGLOBIN 11.1 g/dl (12.0-15.5); LYMPH # 0.4 10^3/uL (1.5-5.0); LYMPH % 3.7 % (24.0-44.0); MEAN CORPUSCULAR HEMOGLOBIN 30.8 pg (27.0-33.0); MEAN CORPUSCULAR HGB CONC 29.1 g/dl (32.0-36.5); MEAN CORPUSCULAR VOLUME 105.8 fl (80.0-96.0); MONO # 0.7 10^3/uL (0.0-0.8); NEUTROPHILS # 10.6 10^3/uL (1.5-8.5); NEUTROPHILS % 89.1 % (36.0-66.0); PLATELET COUNT, AUTOMATED 213 10^3/uL (150-450); WHITE BLOOD COUNT 11.9 10^3/uL (4.0-10.0)
[2021-02-05 05:28] LABS: ALBUMIN 2.5 GM/DL (3.2-5.2); BILIRUBIN,TOTAL 0.9 MG/DL (0.2-1.0); CALCIUM LEVEL 8.8 MG/DL (8.8-10.2); CREATININE FOR GFR 1.08 MG/DL (0.55-1.30); GLOMERULAR FILTRATION RATE 52.4 (>39); POTASSIUM SERUM 4.8 MEQ/L (3.5-5.1); TOTAL PROTEIN 5.5 GM/DL (6.4-8.2)
[2021-02-05] MEDS: METOPROLOL TART 50 MG TAB PO SCH ×3 (05:40→22:00)
[2021-02-05] MEDS: HumaLOG INSULIN (NovoLOG) PER UNIT SC SCH ×4 (05:40→17:43)
[2021-02-05 05:42] LABS: ABG BASE EXCESS 13.7 (-2.0-2.0); ABG HCO3 40.3 MEQ/L (22.0-26.0); ABG O2 SATURATION 97.5 % (95.0-99.0); ABG PARTIAL PRESSURE O2 95.3 mmHg (75.0-100.0); ABG STANDARD HCO3 37.5 MEQ/L (22.0-26.0); ABG TOTAL CO2 42.2 MEQ/L (23.0-31.0); ABG pH (ARTERIAL) 7.439 UNITS (7.350-7.450)
[2021-02-05 05:44] LABS: ABG PARTIAL PRESSURE CO2 60.9 mmHg (35.0-45.0)
[2021-02-05 06:52] LABS: MAGNESIUM LEVEL 1.8 MG/DL (1.8-2.4)
[2021-02-05] MEDS: SUCRALFATE 1 GM TAB PO SCH ×4 (07:30→20:03)
[2021-02-05] MEDS: CREON-24 CAPSULE PO SCH ×3 (07:31→17:43)
[2021-02-05] MEDS: TIOTROPIUM INHALER/CAPSULE (SPIRIVA) INH SCH ×2 (07:40→08:00)
--- NOTE | 2021-02-05 07:54 | REP ---
INDICATION: effusion. COMPARISON: Comparison chest x-ray is from February 04, 2021. TECHNIQUE: Portable upright AP chest radiograph. FINDINGS: Pleural opacity persists in the left base consistent with left pleural effusion. Hazy opacity is again seen in the right base but no liz pleural angle blunting is seen. A right IJ line remains in place in the expected location of superior vena cava. Monitoring electrodes and oxygen delivery tubing are seen. Cardiomegaly is again observed. Pulmonary vasculature is indistinct. No new infiltrate. IMPRESSION: Cardiomegaly left pleural effusion persist. Vascular congestion.. <Electronically signed by Darion Rodarte > 02/05/21 [id number]
[2021-02-05] MEDS: PANTOPRAZOLE 40MG TAB (PROTONIX) PO SCH (08:32)
[2021-02-05] MEDS: APIXABAN 5 MG TAB (ELIQUIS) PO SCH ×2 (08:32→20:03)
--- NOTE | 2021-02-05 10:14 | CCN ---
CRITICAL CARE NOTE DATE: 02/05/2021 SUBJECTIVE: The patient is seen in the intensive care unit. This is hospital day #4. She remains on noninvasive ventilation, she is ill-appearing, and somnolent at bedside. OBJECTIVE: VITAL SIGNS: Temperature 96, T-max for the past 24 hours 98, pulse rate 101, respirations 26, blood pressure 121/62. INTAKE AND OUTPUT: For the past 24 hours, 100 in and 660 out. Her central venous pressure is down to 16. GENERAL APPEARANCE: She is ill-appearing. HEENT: Her oral mucosa is dry. She has noninvasive positive pressure ventilation mask in place. She is able to speak short sentences. NECK: Supple. No meningismus. Jugular veins do distend. The carotid upstroke is sluggish. HEART: Irregularly irregular consistent with atrial fibrillation. LUNGS: Breath sounds diminished with some rales in the bases. ABDOMEN: Soft with intact bowel sounds. EXTREMITIES: Show chronic edema, erythematous changes, and ecchymosis. DIAGNOSTIC STUDIES: White cell count is up slightly at 11.9, hemoglobin is down at 11.1, hematocrit 38.1, platelet count 213,000. Differential white cell count shows 89% neutrophils. The electrolytes were reevaluated and her sodium is 145, potassium 4.8, chloride 100, CO2 of 42, BUN 28, creatinine down to 1.08, glucose 99, calcium is 8.8 on an albumin of 2.5, phosphorus is 3, and her magnesium is 1.8. The AST is 11, ALT 8, LDH is 182, CPK 17. Arterial blood gases were performed on noninvasive ventilation this morning. Her pH is 7.43, pCO2 is down to 60.9, pO2 of 95, and saturation is 97%. This is on a BiLevel pressure inspiratory 20/expriatory 10, rate of 10, FiO2 of 0.35. Chest x-ray continues to show some interstitial edema. There is some opacification of the fissure and small left pleural effusion. MEDICATION REVIEW: She is receiving subcutaneous insulin, Protonix 40 mg q. a.m., Spiriva 18 mcg daily, Lopressor 50 mg q. 8, Eliquis 5 b.i.d., Sucralfate, and DuoNeb is scheduled as p.r.n. at this moment. On review of her past medical history, there is a history of obstructive lung disease, but spirometric measures are not found in the electronic record. She has a history of obstructive sleep apnea syndrome and is apparently noncompliant with her pressure therapy. History of atrial fibrillation and congestive heart failure. Pulmonary hypertension was demonstrated on a recent echo with a PA systolic pressure of 65 and a history of left pleural effusion, drains showing transudative values. ASSESSMENT AND PLAN: 1. The primary problem requiring critical attention is acute on chronic hypoxemic hypercarbic respiratory failure. Arterial blood gases are improved. We will moderate the pressures down on noninvasive ventilation and follow gas exchange. 2. Hyperkalemia. We will stop her supplemental potassium and recheck the electrolytes. 3. Acute kidney injury. Creatinine is improved. We will follow urine output. 4. Fluid volume appears positive by chest x-ray and exam. Blood pressure is acceptable at this point. 5. Obstructive sleep apnea syndrome. The patient will need pressure therapy when she is able to be off noninvasive ventilation. 6. Breast mass on CT. This will require outpatient follow-up. 7. Chronic obstructive pulmonary disease by history. Will change the bronchodilator administration to scheduled and continue with anticholinergics. 8. Deep vein thrombosis (DVT) prophylaxis. This is being addressed with Eliquis. 9. Ulcer prophylaxis being addressed with Protonix. I reviewed the case with the attending hospitalist service and recommended that she remain in the intensive care unit today. We will continue close monitoring and attempt to wean her away from noninvasive ventilation. I have updated the ICU nursing team on the patient's status and care plans for the day. CRITICAL CARE TIME: 127 minutes was spent in the provision of bedside critical care and coordination; excluding any time for the performance of procedures.
--- NOTE | 2021-02-05 12:26 | IPNPDOC ---
Subjective Date Seen The patient was seen on 02/05/21. Subjective Chief Complaint/HPI Remains on bipap, ABG has improved. Objective Physical Examination General Exam: Positive: No Acute Distress Eye Exam: Positive: Conjunctiva & lids normal ENT Exam: Positive: Other ENT Neck Exam: Positive: Supple; Negative: JVD Chest Exam: Positive: Diminished; Negative: Rhonchi, Wheezing Heart Exam: Positive: Rate Normal Telemetry: Positive: No significant arrhythmia Abdomen Exam: Positive: Normal bowel sounds, Soft, Tenderness Extremity Exam: Positive: Swelling Skin Exam: Positive: Other skin issue (left knee with ecchymosis from previous fall) Assessment /Plan Assessment # Acute toxic metabolic encephalopathy 2/2 hypercapnia 2/2 narcotics/sedatives - d/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 will 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 bipap today and in unit # Acute on chronic diastolic CHF # b/l pleural effusions # Chronic pul htn - CTA chest normal - continue with diuresis - echo results reviewed with patient # Left Knee pain secondary to previous mechanical fall at home - ortho consult reviewed - knee xray is normal - hold all narcotic medications - continue to hold valium #DM2 - continue with SS coverage - bG controlled # Left Breast Mass 14 mm - previously noted during last hospitalization will need f/u as outpatient # RUL Lung nodule 7 mm - will need f/u at discharge for this # DVT prophylaxis: eliquis Plan/VTE VTE Prophylaxis Ordered?: Yes (eliquis) VS, I&O, 24H, Fishbone Vital Signs/I&O Vital Signs Date Time Temp Pulse Resp B/P (MAP) Pulse Ox O2 Delivery O2 Flow Rate FiO2 02/05/21 09:00 95 133/69 (90) 98 NIPPV (BIPAP/CPAP) 35 02/05/21 08:00 97.3 02/05/21 04:00 26 02/04/21 09:09 2.0 I&O- Last 24 Hours up to 6 AM 02/05/21 06:00 Intake Total 0 ml Output Total 705 ml Balance -705 ml Laboratory Data 24H LABS Laboratory Tests 2 02/04/21 12:39: Bedside Glucose (Misc Panel) 107 02/04/21 17:47: Bedside Glucose (Misc Panel) 81L 02/04/21 23:42: Bedside Glucose (Misc Panel) 96 02/05/21 04:43: Immature Granulocyte % (Auto) 0.7, Neutrophils (%) (Auto) 89.1H, Lymphocytes (%) (Auto) 3.7L, Monocytes (%) (Auto) 6.0, Eosinophils (%) (Auto) 0.2, Basophils (%) (Auto) 0.3, Neutrophils # (Auto) 10.6H, Lymphocytes # (Auto) 0.4L, Monocytes # (Auto) 0.7, Eosinophils # (Auto) 0.0, Basophils # (Auto) 0.0, Nucleated Red Blood Cells % (auto) 0.0, Anion Gap 3L, Glomerular Filtration Rate 52.4, Calcium Level 8.8, Phosphorus Level 3.0, Magnesium Level 1.8, Total Bilirubin 0.9, Aspartate Amino Transf (AST/SGOT) 11, Alanine Aminotransferase (ALT/SGPT) 8L, Alkaline Phosphatase 71, Lactate Dehydrogenase 182, Total Creatine Kinase 17L, Total Protein 5.5L, Albumin 2.5L, Albumin/Globulin Ratio 0.8L, Triglycerides Level 102, Cholesterol Level 162 02/05/21 05:26: Blood Gas Bicarbonate Standard 37.5H, Arterial Blood pH 7.439, Arterial Blood Partial Pressure CO2 60.9*H, Arterial Blood Partial Pressure O2 95.3, Arterial Blood Total CO2 42.2H, Arterial Blood HCO3 40.3H, Arterial Blood Base Excess 13.7H, Arterial Blood Oxygen Saturation 97.5 02/05/21 05:36: Bedside Glucose (Misc Panel) 107 02/05/21 12:09: Bedside Glucose (Misc Panel) 101 CBC/BMP Laboratory Tests 02/05/21 04:43 LEO NOLASCO MD February 05, 2021 12:26
[2021-02-05] MEDS: IPRATROPIUM 0.5MG/ALBUTEROL 2.5MG INH SOL UD 3ML (DUONEB) NEB SCH ×2 (13:30→20:30)
--- NOTE | 2021-02-05 16:52 | ECGEPIP ---
[facility] Test Date: 2021-02-04 Pat Name: ANETA DE SANTIAGO Department: Room: [place] [address] Gender: Female Settlement Technician: AMOL : 1945 Requested By: BIN Leonard Order Number: [id number] Reading MD: Pete Lyle Measurements Intervals [place] Rate: 79 P: NE: QRS: 90 QRSD: 74 T: -18 QT: 396 QTc: 454 Interpretive Statements Atrial fibrillation Rightward axis Low voltage QRS throughout T wave abnormality, consider anterior ischemia Similar to tracing done 11-11-20 Electronically Signed on 02-05-2021 16:52:23 EDT by Pete Lyle
[2021-02-05] MEDS ORDERED: ACETAMINOPHEN *IV* 650 MG in IV 1 EA IV ONE (22:00)
[2021-02-06] VITALS (8 sets, daily range): BP systolic 99–129; BP diastolic 54–79
[2021-02-06] MEDS: IPRATROPIUM 0.5MG/ALBUTEROL 2.5MG INH SOL UD 3ML (DUONEB) NEB SCH ×4 (02:00→20:08)
[2021-02-06 05:22] LABS: BASO % 0.5 % (0.0-1.0); EOS % 0.2 % (0.0-3.0); HEMATOCRIT 35.3 % (36.0-47.0); HEMOGLOBIN 10.8 g/dl (12.0-15.5); LYMPH # 0.7 10^3/uL (1.5-5.0); LYMPH % 8.6 % (24.0-44.0); MEAN CORPUSCULAR HEMOGLOBIN 31.6 pg (27.0-33.0); MEAN CORPUSCULAR HGB CONC 30.6 g/dl (32.0-36.5); MEAN CORPUSCULAR VOLUME 103.2 fl (80.0-96.0); MONO # 0.6 10^3/uL (0.0-0.8); MONO % 7.3 % (2.0-8.0); NEUTROPHILS # 7.1 10^3/uL (1.5-8.5); NEUTROPHILS % 83.1 % (36.0-66.0); PLATELET COUNT, AUTOMATED 219 10^3/uL (150-450); RED BLOOD COUNT 3.42 10^6/uL (4.00-5.40); WHITE BLOOD COUNT 8.6 10^3/uL (4.0-10.0)
[2021-02-06 05:47] LABS: ALBUMIN 2.4 GM/DL (3.2-5.2); CREATININE FOR GFR 1.12 MG/DL (0.55-1.30); GLOMERULAR FILTRATION RATE 50.2 (>39); PHOSPHORUS LEVEL 2.4 MG/DL (2.5-4.9); POTASSIUM SERUM 4.3 MEQ/L (3.5-5.1); TOTAL PROTEIN 5.7 GM/DL (6.4-8.2)
[2021-02-06] MEDS: HumaLOG INSULIN (NovoLOG) PER UNIT SC SCH ×5 (06:00→20:24)
[2021-02-06 06:05] LABS: ABG BASE EXCESS 13.5 (-2.0-2.0); ABG HCO3 38.7 MEQ/L (22.0-26.0); ABG O2 SATURATION 93.3 % (95.0-99.0); ABG PARTIAL PRESSURE CO2 51.3 mmHg (35.0-45.0); ABG PARTIAL PRESSURE O2 64.2 mmHg (75.0-100.0); ABG STANDARD HCO3 37.2 MEQ/L (22.0-26.0); ABG TOTAL CO2 40.2 MEQ/L (23.0-31.0); ABG pH (ARTERIAL) 7.495 UNITS (7.350-7.450)
[2021-02-06] MEDS ORDERED: KETOROLAC 30 MG/ML 1ML VIAL IV ONE (06:30)
[2021-02-06] MEDS: METOPROLOL TART 50 MG TAB PO SCH ×3 (06:56→21:22)
[2021-02-06] MEDS: TIOTROPIUM INHALER/CAPSULE (SPIRIVA) INH SCH (07:40)
[2021-02-06] MEDS: APIXABAN 5 MG TAB (ELIQUIS) PO SCH ×2 (08:12→21:22)
[2021-02-06] MEDS: SUCRALFATE 1 GM TAB PO SCH ×4 (08:13→21:22)
[2021-02-06] MEDS: PANTOPRAZOLE 40MG TAB (PROTONIX) PO SCH (08:13)
[2021-02-06] MEDS: CREON-24 CAPSULE PO SCH ×3 (08:13→18:00)
--- NOTE | 2021-02-06 09:10 | REP ---
INDICATION: pulm edema. COMPARISON: Comparison portable chest x-ray February 05, 2021. TECHNIQUE: Portable upright AP chest radiograph. FINDINGS: EKG monitoring electrodes overlie the chest. A right internal jugular central venous catheter is seen in place with its tip in the expected location of the superior vena cava. Oxygen delivery tubing is noted. There is blunting of the left lateral pleural angle indicating left pleural effusion. There is also slight blunting and hazy opacity in the right base consistent with right pleural effusion somewhat smaller than left.. Heart is enlarged unchanged . IMPRESSION: Cardiomegaly bilateral effusions left greater than right. No new infiltrate. Right IJ line remains in place.. <Electronically signed by Darion Rodarte > 02/06/21 0906
[2021-02-06] MEDS: FUROSEMIDE 20 MG TAB PO SCH (09:57)
--- NOTE | 2021-02-06 10:03 | CCN ---
CRITICAL CARE NOTE DATE: 02/06/2021 SUBJECTIVE: The patient tolerated noninvasive positive pressure ventilation through the night. She is now more awake and responds to voice. OBJECTIVE: VITAL SIGNS: At bedside, her temperature is 97, pulse rate 89, respirations 27, blood pressure 134/59, and oxygen delivery of 25% is yielding a saturation of 90%. INTAKE AND OUTPUT: For the past 24 hours, 545 in and 280 out; since midnight 480 in and 45 mL out. GENERAL APPEARANCE: She is ill-appearing and cachectic. HEENT: Her oral mucosa is pink. NECK: Supple. There is no meningismus and no stridor. HEART: Sounds are regular. LUNGS: Breath sounds diminished. Expiratory phase mildly prolonged. CHEST: Symmetric. ABDOMEN: Soft. There are bowel sounds in the right lower quadrant. No palpable mass. EXTREMITIES: Pulses are palpable x4. DIAGNOSTIC STUDIES: Her white cell count is down to 8.6, hemoglobin is 10.8, hematocrit 35.3, platelet count 219,000. The electrolytes are sodium 143, potassium 4.3, chloride 99, CO2 of 42, BUN is 35, creatinine 1.12, glucose is 88. Her phosphorus is down to 2.4. AST of 8 and ALT of 8. LDH of 193. Albumin 2.4. Arterial blood gases showed a pH of 7.49, pCO2 of 51, pO2 of 64. This is on noninvasive ventilation. We updated a chest x-ray and the effusions are persisting, left slightly greater than right. No new infiltrates appreciated. There is a right IJ in place. MEDICATION REVIEW: On review of medications, she is receiving Lopressor 50 mg q. 8 hours, Protonix 40 mg q. a.m., Carafate 1 gram q. a.c. and h.s., Eliquis 5 mg b.i.d., Spiriva daily, and DuoNebs on a scheduled q. 6 hours. ASSESSMENT AND PLAN: 1. The primary problem requiring critical attention is acute on chronic respiratory failure. Arterial blood gases are better. We will begin weaning off of noninvasive ventilation to supplemental oxygen. 2. Hyperkalemia corrected. 3. Acute kidney injury. The indices are still somewhat elevated and we will need to follow numbers closely. 4. Obstructive sleep apnea syndrome. The patient had previously been titrated to a CPAP pressure of 11 with 2 liters of oxygen bled through the system. We will write for this at night. She had followed on an outpatient basis with Dr. King at our office. 5. Ulcer prophylaxis is being addressed with Protonix. Deep vein thrombosis (DVT) prophylaxis is addressed. 6. Protein-calorie malnutrition. The patient is beginning to take liquids and her diet will be advanced. I have reviewed the case with the attending hospitalist who will assume management at the point of her transfer to [facility]. Her condition is critical, but improving. I have reviewed the patient's status with the ICU nursing team and care plans for the day. CRITICAL CARE TIME: 66 minutes was spent in the provision of bedside critical care and coordination, excluding any time for the performance of procedures.
--- NOTE | 2021-02-06 10:44 | IPNPDOC ---
Subjective Date Seen The patient was seen on 02/06/21. Subjective Chief Complaint/HPI Aracelis is resting in bed she is been taken off and on invasive positive pressure ventilation this morning. She is currently on 2 L which is her baseline, she is alert oriented 3. She is tolerating her clear liquid diet without any complaints of gagging or coughing. Objective Physical Examination General Exam: Positive: Alert, Cooperative, No Acute Distress Eye Exam: Positive: Conjunctiva & lids normal ENT Exam: Positive: Other ENT Neck Exam: Positive: Supple; Negative: JVD Chest Exam: Positive: Diminished; Negative: Rhonchi, Wheezing Heart Exam: Positive: Rate Normal Telemetry: Positive: No significant arrhythmia Abdomen Exam: Positive: Normal bowel sounds, Soft, Tenderness Extremity Exam: Positive: Swelling Skin Exam: Positive: Other skin issue (left knee with ecchymosis from previous fall) Assessment /Plan Assessment # Acute toxic metabolic encephalopathy 2/2 hypercapnia 2/2 narcotics/sedatives - transfer to PCU - start diabetic diet # Acute on chronic diastolic CHF # b/l pleural effusions # Chronic pul htn - CTA chest normal - start home lasix 60 mg daily - BMP, Mg in am - echo results reviewed with patient # Left Knee pain secondary to previous mechanical fall at home - ortho consult reviewed - knee xray is normal - hold all narcotic medications - continue to hold valium #DM2 - continue with SS coverage - bG controlled # Left Breast Mass 14 mm - previously noted during last hospitalization will need f/u as outpatient # RUL Lung nodule 7 mm - will need f/u at discharge for this # DVT prophylaxis: eliquis Dispo: hopefully back to ARU on monday Plan/VTE VTE Prophylaxis Ordered?: Yes (eliquis) VS, I&O, 24H, Fishbone Vital Signs/I&O Vital Signs Date Time Temp Pulse Resp B/P (MAP) Pulse Ox O2 Delivery O2 Flow Rate FiO2 02/06/21 06:56 91 134/59 02/06/21 06:00 90 NIPPV (BIPAP/CPAP) 02/06/21 04:00 97.0 27 02/04/21 09:09 2.0 I&O- Last 24 Hours up to 6 AM 02/06/21 06:00 Intake Total 1025 ml Output Total 225 ml Balance 800 ml Laboratory Data 24H LABS Laboratory Tests 2 02/05/21 12:09: Bedside Glucose (Misc Panel) 101 02/05/21 17:42: Bedside Glucose (Misc Panel) 84 02/06/21 00:21: Bedside Glucose (Misc Panel) 92 02/06/21 05:05: Immature Granulocyte % (Auto) 0.3, Neutrophils (%) (Auto) 83.1H, Lymphocytes (%) (Auto) 8.6L, Monocytes (%) (Auto) 7.3, Eosinophils (%) (Auto) 0.2, Basophils (%) (Auto) 0.5, Neutrophils # (Auto) 7.1, Lymphocytes # (Auto) 0.7L, Monocytes # (Auto) 0.6, Eosinophils # (Auto) 0.0, Basophils # (Auto) 0.0, Nucleated Red Blood Cells % (auto) 0.0, Anion Gap 2L, Glomerular Filtration Rate 50.2, Calcium Level 9.0, Phosphorus Level 2.4L, Total Bilirubin 1.0, Aspartate Amino Transf (AST/SGOT) 8, Alanine Aminotransferase (ALT/SGPT) 8L, Alkaline Phosphatase 63, Lactate Dehydrogenase 193, Total Creatine Kinase 17L, Total Protein 5.7L, Albumin 2.4L, Albumin/Globulin Ratio 0.7L, Triglycerides Level 109, Cholesterol Level 149 02/06/21 05:06: Blood Gas Bicarbonate Standard 37.2H, Arterial Blood pH 7.495H, Arterial Blood Partial Pressure CO2 51.3H, Arterial Blood Partial Pressure O2 64.2L, Arterial B lood Total CO2 40.2H, Arterial Blood HCO3 38.7H, Arterial Blood Base Excess 13.5H, Arterial Blood Oxygen Saturation 93.3L CBC/BMP Laboratory Tests 02/06/21 05:05 LEO NOLASCO MD February 06, 2021 10:44
[2021-02-06] MEDS: ACETAMINOPHEN TAB 650MG DOSE (2X325MG) PO PRN (21:22)
[2021-02-07] VITALS (7 sets, daily range): BP systolic 102–119; BP diastolic 56–74
[2021-02-07] MEDS: IPRATROPIUM 0.5MG/ALBUTEROL 2.5MG INH SOL UD 3ML (DUONEB) NEB SCH ×4 (01:25→20:08)
[2021-02-07] MEDS: ACETAMINOPHEN TAB 650MG DOSE (2X325MG) PO PRN (04:34)
[2021-02-07 04:39] LABS: BASO % 0.3 % (0.0-1.0); EOS # 0.2 10^3/uL (0.0-0.5); EOS % 2.1 % (0.0-3.0); HEMOGLOBIN 10.3 g/dl (12.0-15.5); LYMPH % 13.4 % (24.0-44.0); MEAN CORPUSCULAR HEMOGLOBIN 31.2 pg (27.0-33.0); MEAN CORPUSCULAR HGB CONC 30.3 g/dl (32.0-36.5); MONO # 0.7 10^3/uL (0.0-0.8); MONO % 9.7 % (2.0-8.0); NEUTROPHILS # 5.6 10^3/uL (1.5-8.5); PLATELET COUNT, AUTOMATED 192 10^3/uL (150-450); WHITE BLOOD COUNT 7.6 10^3/uL (4.0-10.0)
[2021-02-07] MEDS: METOPROLOL TART 50 MG TAB PO SCH ×3 (05:05→22:00)
[2021-02-07 05:11] LABS: ALBUMIN 2.4 GM/DL (3.2-5.2); BILIRUBIN,TOTAL 0.9 MG/DL (0.2-1.0); CALCIUM LEVEL 8.2 MG/DL (8.8-10.2); CREATININE FOR GFR 0.98 MG/DL (0.55-1.30); GLOMERULAR FILTRATION RATE 58.6 (>39); MAGNESIUM LEVEL 1.5 MG/DL (1.8-2.4); PHOSPHORUS LEVEL 2.2 MG/DL (2.5-4.9); POTASSIUM SERUM 3.7 MEQ/L (3.5-5.1); TOTAL PROTEIN 4.9 GM/DL (6.4-8.2)
[2021-02-07 06:10] LABS: ABG BASE EXCESS 16.2 (-2.0-2.0); ABG HCO3 42.3 MEQ/L (22.0-26.0); ABG O2 SATURATION 97.4 % (95.0-99.0); ABG PARTIAL PRESSURE CO2 59.3 mmHg (35.0-45.0); ABG PARTIAL PRESSURE O2 93.1 mmHg (75.0-100.0); ABG STANDARD HCO3 40.1 MEQ/L (22.0-26.0); ABG TOTAL CO2 44.1 MEQ/L (23.0-31.0); ABG pH (ARTERIAL) 7.471 UNITS (7.350-7.450)
[2021-02-07] MEDS ORDERED: MAGNESIUM OXIDE 400MG TAB (MAG-OX) PO ONE (06:45)
[2021-02-07] MEDS: TIOTROPIUM INHALER/CAPSULE (SPIRIVA) INH SCH (07:16)
[2021-02-07] MEDS: HumaLOG INSULIN (NovoLOG) PER UNIT SC SCH ×4 (07:30→21:00)
[2021-02-07] MEDS: PANTOPRAZOLE 40MG TAB (PROTONIX) PO SCH (08:14)
[2021-02-07] MEDS: CREON-24 CAPSULE PO SCH ×3 (08:14→18:12)
[2021-02-07] MEDS: SUCRALFATE 1 GM TAB PO SCH ×4 (08:15→21:23)
[2021-02-07] MEDS: APIXABAN 5 MG TAB (ELIQUIS) PO SCH ×2 (08:15→21:23)
[2021-02-07] MEDS: FUROSEMIDE 20 MG TAB PO SCH (08:15)
[2021-02-07] MEDS ORDERED: K-PHOS NEUTRAL 250MG TABLET (SOD.PHOSPHATE/POT.PHOSPHATE) PO SCH (09:00)
[2021-02-07] MEDS: K-PHOS NEUTRAL 250MG TABLET (SOD.PHOSPHATE/POT.PHOSPHATE) PO SCH ×3 (09:10→21:23)
--- NOTE | 2021-02-07 09:27 | IPNPDOC ---
Subjective Date Seen The patient was seen on 02/07/21. Subjective Chief Complaint/HPI Aracelis is awake and oriented 3, she sitting in bed eating her breakfast she is not exhibiting any labored breathing. She is requesting of the Harley catheter be removed. Objective Physical Examination General Exam: Positive: Alert, Cooperative, No Acute Distress Eye Exam: Positive: Conjunctiva & lids normal ENT Exam: Positive: Mucous membr. moist/pink, Other ENT Neck Exam: Positive: Supple; Negative: JVD Chest Exam: Positive: Clear to auscultation, Diminished; Negative: Rhonchi, Wheezing Heart Exam: Positive: Rate Normal Telemetry: Positive: No significant arrhythmia Abdomen Exam: Positive: Normal bowel sounds, Soft, Tenderness Extremity Exam: Positive: Swelling (the left knee swelling is unchanged.) Skin Exam: Positive: Other skin issue (left knee with ecchymosis from previous fall) Assessment /Plan Assessment # Acute toxic metabolic encephalopathy 2/2 hypercapnia 2/2 narcotics/sedatives -Resolved Holding all narcotics and sedatives. # Acute on chronic diastolic CHF # b/l pleural effusions # Chronic pul htn - CTA chest normal -Continue with lasix 60 mg daily - BMP, Mg in am - echo results reviewed with patient # Left Knee pain secondary to previous mechanical fall at home - ortho consult reviewed - knee xray is normal - hold all narcotic medications - continue to hold valium #DM2 - continue with SS coverage - bG controlled # Left Breast Mass 14 mm - previously noted during last hospitalization will need f/u as outpatient # RUL Lung nodule 7 mm - will need f/u at discharge for this # DVT prophylaxis: eliquis Dispo: Stable for discharge to ARU on monday Plan/VTE VTE Prophylaxis Ordered?: Yes (shae) VS, I&O, 24H, Fishbone Vital Signs/I&O Vital Signs Date Time Temp Pulse Resp B/P (MAP) Pulse Ox O2 Delivery O2 Flow Rate FiO2 02/07/21 08:00 2.0 02/07/21 08:00 97.3 79 18 102/62 (75) 96 Nasal Cannula 02/06/21 06:00 25 I&O- Last 24 Hours up to 6 AM 02/07/21 06:00 Intake Total 500 ml Output Total 1465 ml Balance -965 ml Laboratory Data 24H LABS Laboratory Tests 2 02/06/21 11:56: Bedside Glucose (Misc Panel) 111H 02/06/21 17:08: Bedside Glucose (Misc Panel) 98 02/06/21 19:37: Bedside Glucose (Misc Panel) 124H 02/07/21 04:26: Immature Granulocyte % (Auto) 0.5, Neutrophils (%) (Auto) 74.0H, Lymphocytes (%) (Auto) 13.4L, Monocytes (%) (Auto) 9.7H, Eosinophils (%) (Auto) 2.1, Basophils (%) (Auto) 0.3, Neutrophils # (Auto) 5.6, Lymphocytes # (Auto) 1.0L, Monocytes # (Auto) 0.7, Eosinophils # (Auto) 0.2, Basophils # (Auto) 0.0, Nucleated Red Blood Cells % (auto) 0.0, Anion Gap 2L, Glomerular Filtration Rate 58.6, Calcium Level 8.2L, Phosphorus Level 2.2L, Magnesium Level 1.5L, Total Bilirubin 0.9, Aspartate Amino Transf (AST/SGOT) 10, Alanine Aminotransferase (ALT/SGPT) 7L, Alkaline Phosphatase 57, Lactate Dehydrogenase 162, Total Creatine Kinase 16L, Total Protein 4.9L, Albumin 2.4L, Albumin/Globulin Ratio 1.0L, Triglycerides Level 116, Cholesterol Level 138 02/07/21 05:50: Blood Gas Bicarbonate Standard 40.1H, Arterial Blood pH 7.471H, Arterial Blood Partial Pressure CO2 59.3H, Arterial Blood Partial Pressure O2 93.1, Arterial Blood Total CO2 44.1H, Arterial Blood HCO3 42.3H, Arterial Blood Base Excess 16.2H, Arterial Blood Oxygen Saturation 97.4 CBC/BMP Laboratory Tests 02/07/21 04:26 LEO NOLASCO MD February 07, 2021 09:27
[2021-02-08 00:36] VITALS: BP 90/52
[2021-02-08] MEDS: IPRATROPIUM 0.5MG/ALBUTEROL 2.5MG INH SOL UD 3ML (DUONEB) NEB SCH ×3 (01:09→13:12)
[2021-02-08 04:03] VITALS: BP 109/62
[2021-02-08] MEDS: ACETAMINOPHEN TAB 650MG DOSE (2X325MG) PO PRN (04:11)
[2021-02-08 06:00] VITALS: BP 95/60
[2021-02-08] MEDS: METOPROLOL TART 50 MG TAB PO SCH ×2 (06:00→14:37)
[2021-02-08 06:17] LABS: HEMATOCRIT 33.7 % (36.0-47.0); HEMOGLOBIN 10.2 g/dl (12.0-15.5); MEAN CORPUSCULAR HEMOGLOBIN 30.8 pg (27.0-33.0); MEAN CORPUSCULAR HGB CONC 30.3 g/dl (32.0-36.5); MEAN CORPUSCULAR VOLUME 101.8 fl (80.0-96.0); PLATELET COUNT, AUTOMATED 172 10^3/uL (150-450); RED BLOOD COUNT 3.31 10^6/uL (4.00-5.40); WHITE BLOOD COUNT 8.1 10^3/uL (4.0-10.0)
[2021-02-08 06:49] LABS: BLOOD UREA NITROGEN 24 MG/DL (7-18); CALCIUM LEVEL 8.3 MG/DL (8.8-10.2); CARBON DIOXIDE LEVEL 45 MEQ/L (21-32); CHLORIDE LEVEL 98 MEQ/L (98-107); CREATININE FOR GFR 0.87 MG/DL (0.55-1.30); GLOMERULAR FILTRATION RATE > 60.0 (>39); GLUCOSE, FASTING 96 MG/DL (70-100); MAGNESIUM LEVEL 1.4 MG/DL (1.8-2.4); POTASSIUM SERUM 3.3 MEQ/L (3.5-5.1); SODIUM LEVEL 143 MEQ/L (136-145)
[2021-02-08] MEDS: HumaLOG INSULIN (NovoLOG) PER UNIT SC SCH ×2 (07:30→13:36)
[2021-02-08] MEDS ORDERED: POTASSIUM CHLORIDE 10 MEQ SR TABLET PO ONE (07:45)
[2021-02-08 08:00] VITALS: BP 117/61
[2021-02-08] MEDS: TIOTROPIUM INHALER/CAPSULE (SPIRIVA) INH SCH ×2 (08:00→08:52)
[2021-02-08] MEDS: MAG SULF 1GM/100ML (MAG RUN) 1 GM in IV 1 EA IV SCH ×2 (08:17→10:43)
[2021-02-08] MEDS: APIXABAN 5 MG TAB (ELIQUIS) PO SCH (08:17)
[2021-02-08] MEDS: SUCRALFATE 1 GM TAB PO SCH ×2 (08:17→13:17)
[2021-02-08] MEDS: FUROSEMIDE 20 MG TAB PO SCH (08:17)
[2021-02-08] MEDS: PANTOPRAZOLE 40MG TAB (PROTONIX) PO SCH (08:17)
[2021-02-08] MEDS: CREON-24 CAPSULE PO SCH ×2 (08:18→13:17)
[2021-02-08] MEDS: K-PHOS NEUTRAL 250MG TABLET (SOD.PHOSPHATE/POT.PHOSPHATE) PO SCH (08:18)
[2021-02-08] MEDS ORDERED: ACET1TAB55 PO (10:22)
[2021-02-08 12:00] VITALS: BP 129/83
[2021-02-08 14:37] VITALS: BP 123/65
--- NOTE | 2021-02-08 14:57 | DSES ---
DISCHARGE SUMMARY DATE OF ADMISSION: 02/01/2021 DATE OF DISCHARGE: 02/08/2021 DISCHARGE DIAGNOSES: 1. Acute toxic metabolic encephalopathy secondary to hypercapnea related to over-sedation with narcotics and sedatives. 2. Acute on chronic diastolic congestive heart failure with bilateral pleural effusions. 3. Acute on chronic respiratory failure secondary to above. 4. Chronic pulmonary hypertension. 5. Left knee pain secondary to previous mechanical fall at home. 6. Diabetes mellitus type 2. 7. Left breast mass previously noted during last hospitalization. 8. Right upper lobe lung nodule previously noted on last hospitalization also. ASSISTANT EDITOR(S) ON THE CASE: Pulmonary service. PROCEDURE(S) PERFORMING DURING THIS HOSPITALIZATION: Right IJ central line placement. DISPOSITION: The patient is discharged to the ARU. CONDITION ON DISCHARGE: Stable and at her baseline with her chronic home oxygen of 2 liters/minute continuous. DISCHARGE INSTRUCTIONS: The patient is instructed to follow-up with her PCP in approximately one to two weeks following discharge from ARU. She is to follow-up with her folder seamer automatic in approximately two to four weeks, as well as avoid taking any sedatives or narcotics on a regular basis. IMAGING STUDIES OBTAINED DURING THIS HOSPITALIZATION: Serial chest x-rays, as well as CT scan of the chest; please reference individual reports for details. RELEVANT LABORATORY DATA: White count 8.1, hemoglobin 10.2, hematocrit 33.7, platelet count 172,000. The patient's initial blood gas showed a pH of 7.3 with pCO2 of 73, pO2 of 74, bicarb of 43. Subsequent gas several days later showed a pH of 7.1 with a pCO2 of 142, pO2 of 206 with a bicarb of 45, total CO2 of 49, O2 sat 99%. Sodium 143, potassium 3.3, chloride 98, bicarb 45, BUN 24, creatinine 0.87, glucose 96, magnesium 1.4. Serial troponin markers were negative. HOSPITAL COURSE: Aracelis is a 75-year-old woman who had previously fallen onto her knee at home and was brought into the hospital and treated for acute on chronic diastolic congestive heart failure. She was found to be too weak to go home and was admitted to the ARU. While in the ARU, the patient developed worsening respiratory status and altered mental status. She was noted to have hypercapnea related to scheduled Valium and narcotics. The patient was admitted from the ARU to the ICU where she was treated and monitored. She initially did not require any BiPAP. The patient was subsequently transferred to the PCU where she was ordered for narcotics and administered. This caused her pCO2 to rise and once again, she was transferred to the ICU, placed on BiPAP, and pulmonary was consulted. The patient's respiratory status improved with BiPAP. She was monitored in the ICU for several days and then transferred to the floor where she has remained stable on her chronic oxygen. Her narcotics and sedatives have been discontinued and at this point in time, she is stable for return to the ARU and is discharged there today in stable condition. DISCHARGE PHYSICAL EXAMINATION: VITAL SIGNS: At the time of discharge, the patient's temperature is 98.1, pulse 95 and regular, respirations 20, blood pressure 129/83. O2 sat is 99% on 2 liters nasal cannula. GENERAL: The patient is alert and oriented x3. She appears in no acute distress. She is resting comfortably. She is an elderly woman who is obese. SKIN: Intact and warm to touch. HEENT: Head is atraumatic. Pupils symmetric and react to light. Oropharynx is clear. NECK: Supple. LUNGS: Sounds present without rales or rhonchi. HEART: S1, S2. No murmurs, rubs, or gallops. ABDOMEN: Soft and nontender. EXTREMITIES: The patient has chronic left knee ecchymosis from her fall several weeks ago with no evidence of new hematoma since being on her anticoagulation. DISCHARGE MEDICATIONS: 1. Tylenol 650 every four hours as needed for ilpf-ev-smwnvgyn pain. 2. Albuterol nebulizer every two hours as needed for wheezing. 3. Albuterol inhaler q.i.d. as needed for shortness of breath. 4. Eliquis 5 mg daily. 5. Ascorbic acid 500 mg daily. 6. Cholecalciferol 1000 units p.o. daily. 7. Furosemide 60 mg daily. 8. Mag-Ox 400 mg daily. 9. Metoprolol tartrate 50 mg twice a day. 10. Pancreatic enzyme two capsules each with meals. 11. Protonix 40 mg twice a day. 12. MiraLAX 17 grams daily. 13. Potassium chloride 10 mEq daily. 14. Senna two tabs twice a day. 15. Carafate 1 gram with meals and at bedtime. 16. Spiriva 18 mcg daily. 17. Vitamin E 400 units p.o. daily. The following medications were stopped. 1. Valium 5 mg p.o. t.i.d. 2. Percocet 7.5/325 one tab three times a day as needed for pain. Total of 30 minutes spent completing all discharge paperwork. [facility] Physical Medicine & Rehab Provider
== END 2021-02-08 14:50 | DRG 91 ==
LOC: M ICU 18:40 → M PCU 02-02 17:55 → M MSPAV 02-03 16:27 → M ICU 02-04 09:05 → M PCU 02-06 17:30
PROVIDERS: ADMIT Family Medicine; ATTEND Internal Medicine
PROC: 02HV33Z Insertion of Infusion Device into Superior Vena Cava, Percutaneous Approach (ICD-10-PCS; principal; 2021-02-04)
DX: G92 Toxic encephalopathy (principal); I50.33 Acute on chronic diastolic (congestive) heart failure; J96.22 Acute and chronic respiratory failure with hypercapnia; J96.21 Acute and chronic respiratory failure with hypoxia; I31.3 Pericardial effusion (noninflammatory); G47.33 Obstructive sleep apnea (adult) (pediatric); E11.9 Type 2 diabetes mellitus without complications; M54.9 Dorsalgia, unspecified; I48.91 Unspecified atrial fibrillation; D17.5 Benign lipomatous neoplasm of intra-abdominal organs; N63.20 Unspecified lump in the left breast, unspecified quadrant; R91.1 Solitary pulmonary nodule; Z90.49 Acquired absence of other specified parts of digestive tract; Z87.891 Personal history of nicotine dependence; Z79.01 Long term (current) use of anticoagulants; Z79.4 Long term (current) use of insulin; Z79.899 Other long term (current) drug therapy; Z79.891 Long term (current) use of opiate analgesic; Z88.1 Allergy status to other antibiotic agents; Z91.040 Latex allergy status; M25.562 Pain in left knee; Z99.81 Dependence on supplemental oxygen; I27.20 Pulmonary hypertension, unspecified; T40.2X5A Adverse effect of other opioids, initial encounter; S80.02XD Contusion of left knee, subsequent encounter; W19.XXXD Unspecified fall, subsequent encounter; Y92.9 Unspecified place or not applicable

== ENCOUNTER 2021-02-08 10:33 | Inpatient (IN) | payer MEDICARE, OTHER ==
[~2021-02-08] VITALS: Ht 147.3 cm; Wt 76.2 kg
[~2021-02-08 10:33] MED LIST changes: +ACET1TAB55 PO
[2021-02-08] MEDS ORDERED: DEXTROSE 50% 50 ML SYRINGE IV PRN (11:55)
[2021-02-08] MEDS ORDERED: GLUCAGON INJ 1MG VIAL SC PRN (11:55)
[2021-02-08] MEDS ORDERED: MIRALAX *UNIT DOSE* 17GM PACKET PO PRN (11:55)
[2021-02-08] MEDS ORDERED: BISACODYL 10 MG SUPP PR PRN (11:55)
[2021-02-08] MEDS ORDERED: GLUCOSE 4GM CHEW TABLET PO PRN (11:55)
--- NOTE | 2021-02-08 12:04 | HPEPDOC ---
Tube Bender Hand Note DATE OF ADMISSION: 01-25-21 DATE OF SERVICE: 01-26-21 TIME OF ADMISSION: Please refer to physician's admission order. SOURCE OF ADMISSION INFORMATION: [facility] record and patient CHIEF COMPLAINT: CHF exacerbation HISTORY OF PRESENT ILLNESS: 75F pmh Afib, COPD, pulmonary HTN, LEANNE not on CPAP, chronic hypoxemia on , DM, back pain and multiple joint OA on chronic opioids, who feel at home and presented to [facility] ED on 01-13-21 complaining of back pain and abdominal pain. She was found to be in CHF exacerbation with RVR and was diuresed and monitored on telemetry. She had bilateral pleural effusion, left greater than right in setting of CHF and underwent left thoracentesies on 01-21-21 with results showing transudative fluid. She complained of continue abdominal pain though to be due to constipation due to chronic opioid use, however CT abdomen pelvis revealed Mild dilatation of the common bile duct at 10 mm stable, Mild left-sided colonic diverticulosis, Enlarging right adrenal myelolipoma now measuring up to 6.4 cm. Fatty liver, calcified granulomas in right lobe of liver. Case was dis cussed with GI who recommended addition of Creon and to continue PPI and sucralfate with outpatient follow-up. She was admitted to ARU on 01-25-21 and unfortunately had to be discharged to ICU on 02-01-21 for hypercapnia and encephalopathy in setting of CHF exacerbation with worsening pleural effusions. She was diuresed aggressively, her home valium and oxycodone discontinued due to encephalopathy, and she was deemed medically appropriate for discharge back to ARU on 02-08-21 to continue to advance her mobility. REVIEW OF SYSTEMS: The following is a completed review of systems and has been reviewed. Review of systems otherwise unremarkable. PAIN: Patient self reports chronic low back pain and left knee pain EYES: No recent vision changes EARS, NOSE, & THROAT: No throat pain, or dysphagia, or rhinorrhea CARDIOVASCULAR: Denies chest pain or palpitations PULMONARY: +shortness of breath with exertion GASTROINTESTINAL: Denies constipation/diarrhea GENITOURINARY: denies dysuria MUSCULOSKELETAL: +generalized weakness NEUROLOGICAL: denies tremor, + paresthesias HEMATOLOGICAL: left knee/leg ecchymosis SKIN: denies rash PSYCHIATRIC: Unremarkable All other review of systems found to be negative. PAST MEDICAL HISTORY: as per HPI PAST SURGICAL HISTORY: Bilat CTS, appendectomy, umbilical hernia repair, left ankle ORIF ALLERGIES: Please see below. MEDICATIONS: Please see below. SOCIAL HISTORY: Former smoker, no etoh/illicit drugs DIET: low sodium, fluid restrict PHYSICAL EXAMINATION: VITAL SIGNS: Please see below. GENERAL: Pleasant and cooperative. No acute distress. HEENT: PERRL. Extraocular movements intact. Clear conjunctiva CARDIOVASCULAR: Regular rate and rhythm. No murmurs, rubs, or gallops LUNGS: Clear to auscultation bilaterally. No wheezes. No rhonchi ABDOMEN: Soft, nontender, nondistended. Positive bowel sounds. Normal active bowel sounds NEUROLOGICAL: Alert and oriented times three. Cranial nerves II through XII grossly intact. Sensation diminished to light touch in stocking/glove pattern EXTREMITIES: 5\5 strength bilateral upper extremities. 4\5 strength right lower extremity. 4/5 strength in left lower extremity. +bilat LE edema SKIN: left calve and knee with ecchymosis LABORATORY DATA: Please see below. IMAGING: Imaging documentation personally reviewed by record FUNCTIONAL STATUS: Premorbid: Mod-I Independent with all activities of daily life as well as mobility On Admission: Contact guard able to ambulate 3 feet, functional transfers, dressing, toileting GOALS: Mod-I functional transfers, ambulation community distances, stairs, dressing, toileting, bathing ASSESSMENT:75-year-old F with past medical history of Afib, CHF who presents status post CHF exacerbation PLAN: 1. REhab- PT/OT advance mobility and ADLs, strengthen/stretch/maintain ROM all 4 limbs 2. Cardiac- hx of Afib on eliquis and metoprolol -chronic diastolic CHF with recent acute exacerbation- c/u fluid restriction, daily weights, lasix -medicine consulted to assist in overall management, will ask renal to follow along for fluid management given patient's multiple hospitalizations for CHF exacerbation 3. Resp- hx of COPD on home , c/u spiriva and combivent with recent hyper capnic encephalopathy in setting of CHF exacerbation plus opioid and benzo use requiring transfer off ARU to ICU on 02-01-21 - monitor for infection/worsening respiratory status -LEANNE not on CPAP -bilat pleural effusion s/p thoracentesis 01-21-21, c/u monitor for clinical decline -pulm nodule- 7 mm noncalcified module noted in right upper lobe incidentally on imaging, unchanged from prior chest imaging in october 2020. Patient should f/u outpatient with PCP 4. GI- +common bilat duct dilatation seen on recent CT stable from prior exams, per GI patient started on Creon for pancreatic insufficiency, c/u sucralfate and protonix, f/u outpatient GI -will monitor for worsening abdominal pain -chronic constipation due to opioid use (now on hold)- c/u bowel meds 5. DVT ppx- on eliquis 6. Ortho- hx of multiple joint OA contributing to overall functional decline- c/u tylenol pr - swelling in left knee evaluated by ortho during patient's recent ICU stay- no concern for septic joint -left ankle pain work-up on recent ARU admission- no fracture 7. Endo- hx of DM- diet controlled with peripheral polyneuropathy contributing to overall functional decline 8. Breast mass - 1.4cm irregular mass noted in left breast incidentally on imaging. Patient should f/u outpatient with PCP for breast US or mammogram 9. Pain- avoid valium and oxycodone due to recent metabolic encephalopathic hypercapnia -patient agreeable to trial of cymbalta for her arthritis now that she is no longer on valium/opioids -lidoderm patch to low back 10. Dispo- TBD POST ADMISSION PHYSICIAN EVALUATION: Medical and functional status: Description of medical status, medical assessment: As above. Rehabilitation diagnosis and current and prior cold morbid medical conditions as above. Risk of complications and plans to mitigate them as above. Description of functional status current status is as above. Prior status as above. Status compared to preadmission: There are no clinically significant differences between the patient's current status and the information described on the preadmission screening document. Treatment plan anticipated: Treatment plan is as described above. Required disciplines including physical therapy, occupational therapy, others as noted above Intensity of services: 3 hours a day, 6 days a week. Special considerations: There are no specific special or safety considerations that would likely preclude immediate implementation of an intensive rehabilitation program or subsequently influence the plan of care ATTESTATION: Considering all the information above, it is my best judgment that this patient requires intensive rehabilitation therapy as described above and an inpatient hospital environment due to the complexity of nursing, medical, and rehabilitation needs required by the patient. Furthermore, this patient can reasonably be expected to participate in an benefit from an inpatient rehabilitation stay with an interdisciplinary team approach to the delivery of rehabilitation care under the direction and supervision of rehabilitation physician. PROGNOSIS: good ESTIMATED LENGTH OF STAY:10-12 days. PROJECTED DISCHARGE DESTINATION: Home with family support and any durable medical equipment required to increase functional safety and mobility. TIME SPENT COUNSELING AND COORDINATING INITIAL CARE: Greater than 70 minutes. Vital Signs Vital Signs Date Time Temp Pulse Resp B/P (MAP) Pulse Ox O2 Delivery O2 Flow Rate FiO2 02/08/21 15:00 97.9 99 18 94/67 (76) 91 Nasal Cannula 2.0 Home Medications Scheduled Apixaban (Eliquis) 5 Mg Tablet, 5 MG PO BID, (Reported) Ascorbic Acid (Ascorbic Acid) 500 Mg Tablet, 500 MG PO DAILY, (Reported) Cholecalciferol (Vitamin D3) (Vitamin D3) 1,000 Unit Tablet, 1,000 UNITS PO DAILY, (Reported) Furosemide (Furosemide) 20 Mg Tablet, 60 MG PO DAILY Magnesium Oxide (Magnesium) 400 Mg Capsule, 400 MG PO DAILY, (Reported) Metoprolol Tartrate (Metoprolol Tartrate) 25 Mg Tablet, 50 MG PO BID Pancreatic Enzymes (Creon Dr 24,000 Units Capsule) 1 Each Capsule.dr, 2 EA PO WM Pantoprazole Sodium (Pantoprazole Sodium) 40 Mg Tablet.dr, 40 MG PO BID Polyethylene Glycol 3350 (Miralax) 17 Gm Powd.pack, 1 PKT PO DAILY Potassium Chloride (Potassium Chloride) 10 Meq Tab.er.prt, 10 MEQ PO DAILY, (Reported) Sennosides/Docusate Sodium (Senna Plus Tablet) 1 Each Tablet, 2 TAB PO BID Sucralfate (Sucralfate) 1 Gm/10 Ml Oral.susp, 1 GM PO ACHS Tiotropium Collins (Spiriva) 18 Mcg Cap.w.dev, 18 MCG INH DAILY, (Reported) Vitamin E (Vitamin E) 400 Unit Capsule, 400 UNIT PO DAILY, (Reported) Scheduled PRN Acetaminophen (Acetaminophen) 325 Mg Tablet, 650 MG PO Q4HP PRN for MILD/MODERATE PAIN (PS 1-7) Albuterol Sulf (Albuterol Sulfate) 2.5 Mg/3 Ml Nebu, 1 VIAL NEB Q2H PRN for SOB/WHEEZING, (Reported) Albuterol Sulfate (Proair Hfa) 8.5 Gm Hfa.aer.ad, 2 PUFF INH QID PRN for SHORTNESS OF BREATH, (Reported) [Sodium Chloride Nasal [place]] 1 NASPR, 2 SPRAY NA Q2HP PRN for NASAL DRYNESS Allergies Coded Allergies: adhesive tape (Verified Allergy, Mild, RASH, 01/13/21) latex (Verified Allergy, Mild, RASH, 01/13/21) azithromycin (Unverified Adverse Reaction, Mild, GI, 01/13/21) Listed under diet A-FIB/CHADSVASC A-FIB History Current/History of A-Fib/PAF?: Yes Current PO Anticoag Therapy: Yes CHIRAG LARA MD February 08, 2021 12:04
[2021-02-08 15:00] VITALS: BP 94/67
[2021-02-08] MEDS: REMEDY PHYTOPLEX Z-GUARD PASTE 113GM TUBE (FROM STOREROOM PRODUCT) TOP SCH ×2 (16:00→21:26)
[2021-02-08] MEDS: HumaLOG INSULIN (NovoLOG) PER UNIT SC SCH ×2 (18:04→21:00)
[2021-02-08] MEDS: SUCRALFATE 1 GM TAB PO SCH ×2 (18:04→21:27)
[2021-02-08] MEDS: CREON-24 CAPSULE PO SCH (18:04)
[2021-02-08] MEDS: ACETAMINOPHEN TAB 650MG DOSE (2X325MG) PO PRN ×2 (18:09→22:03)
[2021-02-08] MEDS: COMBIVENT RESPIMAT 100-20MCG INHALER 4GM INH SCH (19:22)
[2021-02-08 20:30] VITALS: BP 121/64
[2021-02-08] MEDS: SENNA 8.6 MG TAB (SENOKOT) PO SCH (21:21)
[2021-02-08] MEDS: METOPROLOL TART 50 MG TAB PO SCH (21:24)
[2021-02-08] MEDS: DOCUSATE SODIUM 100MG CAPSULE PO SCH (21:27)
[2021-02-08] MEDS: PANTOPRAZOLE 40MG TAB (PROTONIX) PO SCH (21:27)
[2021-02-08] MEDS: APIXABAN 5 MG TAB (ELIQUIS) PO SCH (21:28)
[2021-02-09] MEDS: COMBIVENT RESPIMAT 100-20MCG INHALER 4GM INH SCH ×4 (02:53→19:18)
[2021-02-09 05:30] VITALS: BP 120/62
[2021-02-09] MEDS: METOPROLOL TART 50 MG TAB PO SCH ×3 (05:49→21:10)
[2021-02-09] MEDS: ACETAMINOPHEN TAB 650MG DOSE (2X325MG) PO PRN ×2 (06:01→20:14)
[2021-02-09 07:10] LABS: BASO % 0.5 % (0.0-1.0); EOS # 0.3 10^3/uL (0.0-0.5); EOS % 3.3 % (0.0-3.0); HEMATOCRIT 36.8 % (36.0-47.0); HEMOGLOBIN 11.3 g/dl (12.0-15.5); LYMPH # 0.9 10^3/uL (1.5-5.0); MEAN CORPUSCULAR HEMOGLOBIN 31.2 pg (27.0-33.0); MEAN CORPUSCULAR HGB CONC 30.7 g/dl (32.0-36.5); MEAN CORPUSCULAR VOLUME 101.7 fl (80.0-96.0); MONO # 0.7 10^3/uL (0.0-0.8); MONO % 9.5 % (2.0-8.0); NEUTROPHILS # 5.8 10^3/uL (1.5-8.5); NEUTROPHILS % 74.1 % (36.0-66.0); PLATELET COUNT, AUTOMATED 202 10^3/uL (150-450); RED BLOOD COUNT 3.62 10^6/uL (4.00-5.40); WHITE BLOOD COUNT 7.8 10^3/uL (4.0-10.0)
[2021-02-09] MEDS: TIOTROPIUM INHALER/CAPSULE (SPIRIVA) INH SCH (07:18)
[2021-02-09] MEDS: HumaLOG INSULIN (NovoLOG) PER UNIT SC SCH ×4 (07:30→20:04)
[2021-02-09 07:40] LABS: ALBUMIN 2.6 GM/DL (3.2-5.2); ALT/SGPT 12 U/L (12-78); BILIRUBIN,TOTAL 1.1 MG/DL (0.2-1.0); BLOOD UREA NITROGEN 18 MG/DL (7-18); CALCIUM LEVEL 8.8 MG/DL (8.8-10.2); CARBON DIOXIDE LEVEL 42 MEQ/L (21-32); CHLORIDE LEVEL 96 MEQ/L (98-107); GLOMERULAR FILTRATION RATE > 60.0 (>39); GLUCOSE, FASTING 86 MG/DL (70-100); POTASSIUM SERUM 3.4 MEQ/L (3.5-5.1); SODIUM LEVEL 141 MEQ/L (136-145); TOTAL PROTEIN 5.3 GM/DL (6.4-8.2)
[2021-02-09] MEDS: SUCRALFATE 1 GM TAB PO SCH ×4 (07:45→20:14)
[2021-02-09] MEDS: CREON-24 CAPSULE PO SCH ×3 (07:45→17:19)
[2021-02-09] MEDS: DOCUSATE SODIUM 100MG CAPSULE PO SCH ×2 (07:45→20:14)
[2021-02-09] MEDS: ASCORBIC ACID 500 MG TAB PO SCH (07:48)
[2021-02-09] MEDS: VITAMIN D 1,000 INTERNATIONAL UNITS TABLET PO SCH (07:48)
[2021-02-09] MEDS: APIXABAN 5 MG TAB (ELIQUIS) PO SCH ×2 (07:48→20:14)
[2021-02-09] MEDS: PANTOPRAZOLE 40MG TAB (PROTONIX) PO SCH ×2 (07:48→20:14)
[2021-02-09] MEDS: REMEDY PHYTOPLEX Z-GUARD PASTE 113GM TUBE (FROM STOREROOM PRODUCT) TOP SCH ×3 (07:54→20:15)
[2021-02-09] MEDS ORDERED: aMILoride 5 MG TAB PO SCH (09:00)
[2021-02-09] MEDS ORDERED: POTASSIUM CHLORIDE 10 MEQ SR TABLET PO SCH (09:00)
[2021-02-09] MEDS ORDERED: FUROSEMIDE 20 MG TAB PO SCH (09:00)
[2021-02-09] MEDS ORDERED: MAGNESIUM OXIDE 400MG TAB (MAG-OX) PO SCH (09:00)
--- NOTE | 2021-02-09 11:15 | HPE ---
HISTORY AND PHYSICAL DATE OF ADMISSION: 02/08/2021 HISTORY OF PRESENT ILLNESS: Aracelis is back in ARU. The last time I saw her, I was transferring her out of ARU for respiratory failure secondary to excessive sedation/pain medication receiving Valium and oxycodone. I put her in the ICU thinking she might need rescue BiPAP, she did not, and was transferred out to PCU. She then had opiates re-administered, her pCO2 judson, she was transferred back to the ICU, and this time, she did require BiPAP rescue. She recovered and at this point with sedatives and opiates on hold, she remains stable enough for transfer back to ARU. PAST MEDICAL HISTORY: Unchanged from what I dictated a week ago. 1. Chronic hypoxic respiratory failure. 2. Chronic O2 at 2 liters with baseline pCO2 in the 50s. 3. LEANNE on CPAP. 4. Type 2 diabetes. 5. Chronic back pain. 6. Congestive heart failure with therapeutic thoracentesis 700 mL about two weeks ago. 7. Atrial fibrillation on chronic anticoagulant therapy. 8. Left breast mass on CT of the chest that requires outpatient follow-up. 9. Right upper lobe nodule on CT scan that requires outpatient follow-up. 10. Right adrenal myolipoma. SOCIAL HISTORY: Quit smoking in the past. . No alcohol. PAST SURGICAL HISTORY: 1. Left ankle ORIF. 2. Bilateral carpal tunnel repair. 3. Appendectomy. 4. Umbilical hernia repair. FAMILY HISTORY: Non-contributory. REVIEW OF SYSTEMS: She is at her baseline respiratory status. PHYSICAL EXAMINATION: VITAL SIGNS: Blood pressure 120/62, pulse 77, O2 saturation 94% on 2 liters, afebrile. GENERAL APPEARANCE: Alert, conversant, in no distress. NECK: No JVD. LUNGS: Decreased breath sounds. HEART: Regular rate and rhythm. ABDOMEN: Soft and nontender. EXTREMITIES: Trace peripheral edema. LABORATORY DATA: Potassium is 3.4. Renal function is normal. White count 7.8, hemoglobin 11.3, platelets 202,000. IMPRESSION AND PLAN: 1. Chronic hypoxemic respiratory failure. Continue supplemental oxygen and nebulized bronchodilator. AVOID ANY OPIATES OR SEDATING AGENT BOTH DURING THIS AND FUTURE ADMISSIONS. 2. Hypokalemia. Looks like she has already received supplemental potassium. 3. Suspected Cor pulmonale versus congestive heart failure with preserved ejection fraction. Seems euvolemic. She is on furosemide 60 mg daily. Monitor for edema. 4. Atrial fibrillation with rate controlled. She is on metoprolol and Eliquis. 5. Diabetes. Sliding scale insulin coverage has already been ordered.
[2021-02-09] MEDS ORDERED: POTASSIUM CHLORIDE 10 MEQ SR TABLET PO ONE (11:30)
[2021-02-09 14:00] VITALS: BP 130/73
[2021-02-09] MEDS: TORSEMIDE 20 MG TAB PO SCH (14:50)
[2021-02-09] MEDS: LIDOCAINE 5% (LIDODERM) PATCH TD SCH (14:55)
[2021-02-09 19:56] VITALS: BP 129/71
[2021-02-09] MEDS: **NOTE PATIENT COMMENT** MISC XX SCH (20:15)
[2021-02-09] MEDS: SENNA 8.6 MG TAB (SENOKOT) PO SCH (20:15)
[2021-02-10 00:14] LABS: NT-PRO BNP 3171 PG/ML (<450)
[2021-02-10] MEDS: ACETAMINOPHEN TAB 650MG DOSE (2X325MG) PO PRN ×4 (02:23→21:13)
[2021-02-10] MEDS: COMBIVENT RESPIMAT 100-20MCG INHALER 4GM INH SCH ×4 (02:56→20:27)
[2021-02-10] MEDS: METOPROLOL TART 50 MG TAB PO SCH ×3 (05:20→21:14)
[2021-02-10 05:21] VITALS: BP 133/74
[2021-02-10 06:46] LABS: BASO % 0.4 % (0.0-1.0); EOS # 0.3 10^3/uL (0.0-0.5); EOS % 3.4 % (0.0-3.0); HEMATOCRIT 36.6 % (36.0-47.0); HEMOGLOBIN 11.1 g/dl (12.0-15.5); LYMPH # 1.1 10^3/uL (1.5-5.0); MEAN CORPUSCULAR HEMOGLOBIN 30.8 pg (27.0-33.0); MEAN CORPUSCULAR HGB CONC 30.3 g/dl (32.0-36.5); MEAN CORPUSCULAR VOLUME 101.7 fl (80.0-96.0); MONO # 0.9 10^3/uL (0.0-0.8); MONO % 9.4 % (2.0-8.0); NEUTROPHILS # 7.3 10^3/uL (1.5-8.5); NEUTROPHILS % 75.5 % (36.0-66.0); PLATELET COUNT, AUTOMATED 213 10^3/uL (150-450); WHITE BLOOD COUNT 9.7 10^3/uL (4.0-10.0)
[2021-02-10] MEDS: DOCUSATE SODIUM 100MG CAPSULE PO SCH (07:05)
[2021-02-10 07:08] LABS: BLOOD UREA NITROGEN 19 MG/DL (7-18); CALCIUM LEVEL 9.1 MG/DL (8.8-10.2); CARBON DIOXIDE LEVEL 44 MEQ/L (21-32); CHLORIDE LEVEL 95 MEQ/L (98-107); CREATININE FOR GFR 0.95 MG/DL (0.55-1.30); GLOMERULAR FILTRATION RATE > 60.0 (>39); GLUCOSE, FASTING 94 MG/DL (70-100); MAGNESIUM LEVEL 1.3 MG/DL (1.8-2.4); POTASSIUM SERUM 3.6 MEQ/L (3.5-5.1); SODIUM LEVEL 142 MEQ/L (136-145)
[2021-02-10] MEDS: HumaLOG INSULIN (NovoLOG) PER UNIT SC SCH ×4 (07:30→21:00)
[2021-02-10] MEDS: SUCRALFATE 1 GM TAB PO SCH ×4 (08:26→21:13)
[2021-02-10] MEDS: VITAMIN D 1,000 INTERNATIONAL UNITS TABLET PO SCH (08:26)
[2021-02-10] MEDS: CREON-24 CAPSULE PO SCH ×3 (08:26→17:26)
[2021-02-10] MEDS: TORSEMIDE 20 MG TAB PO SCH (08:27)
[2021-02-10] MEDS: ASCORBIC ACID 500 MG TAB PO SCH (08:27)
[2021-02-10] MEDS: aMILoride 5 MG TAB PO SCH (08:27)
[2021-02-10] MEDS: PANTOPRAZOLE 40MG TAB (PROTONIX) PO SCH ×2 (08:27→21:12)
[2021-02-10] MEDS: APIXABAN 5 MG TAB (ELIQUIS) PO SCH ×2 (08:27→21:13)
[2021-02-10] MEDS: LIDOCAINE 5% (LIDODERM) PATCH TD SCH (08:29)
[2021-02-10] MEDS: REMEDY PHYTOPLEX Z-GUARD PASTE 113GM TUBE (FROM STOREROOM PRODUCT) TOP SCH ×3 (08:29→21:15)
--- NOTE | 2021-02-10 08:31 | CR ---
CONSULTATION DATE: 02/09/2021 REQUESTING PHYSICIAN: Sherron Escalona MD CONSULTING PHYSICIAN: Rashmi Frey MD REASON FOR CONSULTATION: Decompensated congestive heart failure. HISTORY OF PRESENT ILLNESS: Ms. Hsu is a 75-year-old female with a past medical history of chronic hypoxic respiratory failure with recent findings of pleural effusion and pericardial effusion, chronic oxygen dependence, chronic respiratory acidosis, obstructive sleep apnea, type 2 diabetes mellitus, atrial fibrillation on chronic anticoagulation and other comorbid conditions mentioned below. The patient is currently admitted to the acute rehabilitation unit after recent admission for congestive heart failure (CHF) exacerbation and atrial fibrillation with rapid ventricular response (RVR). Dr. Escalona requested nephrology evaluation for management of her diuretics and for optimization of her fluid status while she is receiving rehabilitation. PAST MEDICAL HISTORY: 1. Atrial fibrillation. 2. Chronic obstructive pulmonary disease (COPD). 3. Pulmonary hypertension. 4. Obstructive sleep apnea (LEANNE). 5. Chronic hypoxic respiratory failure. 6. Chronic respiratory acidosis. 7. Type 2 diabetes mellitus. 8. Chronic back pain. 9. Multiple joint osteoarthritis. 10.Recent pleural effusion and pericardial effusion. 11.Congestive heart failure. 12.History of encephalopathy secondary to opioid and benzodiazepine use. 13.Left breast mass on CAT scan, pending further workup. PAST SURGICAL HISTORY: Appendectomy, umbilical hernia repair, left ankle open reduction, internal fixation, thoracentesis, ALLERGIES: ADHESIVE TAPE, AZITHROMYCIN, LATEX. SOCIAL HISTORY: She is an ex-smoker, marked, no alcohol or drug use. FAMILY HISTORY: She denies family history of renal disease. REVIEW OF SYSTEMS: Constitutional: Denies fevers or chills. Eyes: Denies visual changes or tearing. ENT: Denies epistaxis, rhinorrhea or odynophagia. Cardiac: Reports leg swelling and history of fluid overload. Denies chest pain. Reports atrial fibrillation. Respiratory: Reports chronic obstructive pulmonary disease (COPD) and chronic oxygen dependence and recent pleural effusions and recent thoracentesis. Gastrointestinal: Denies nausea, vomiting or diarrhea. Genitourinary: Denies hematuria or dysuria. Musculoskeletal: Reports leg swelling and generalized debility and history of osteoarthritis. Denies gout. Endocrine: Reports diabetes and obesity. Hematologic: Reports anticoagulant use and mild anemia. Skin: Denies any new rashes or ulcers. Neurologic; Denies seizures or syncope. Had recent medication-induced encephalopathy. The remainder of review of systems is negative or as per history of present illness. PHYSICAL EXAMINATION: Vital signs: Temperature 97.9, pulse 92, respiratory rate 18, blood pressure 129/71, saturating 93% on 2 liters nasal canula. General: The patient is seen sitting up in bed, awake, alert, oriented, comfortable in no apparent distress. Extraocular muscles are intact. Tongue is moist. Neck is supple. Jugular veins are mildly elevated. Heart sounds are irregular. S1, S2. There is 2+ pitting leg edema bilaterally. Lungs show diminished breath sounds at the bases. She has no accessory muscle use or tachypnea. There is prolonged expiration. She is comfortable on nasal cannula. Abdomen is soft and nontender. Extremities are negative for clubbing or cyanosis, but there is 2+ pitting edema bilaterally. Neurologic: She is awake, alert, oriented x3 and appears to be at baseline mentation. LABORATORY STUDY: Today's laboratory study shows sodium 141, potassium 34.4, bicarbonate 42, BUN 18, creatinine 0.8, albumin 2.6, hemoglobin 11.3, platelets 202. Chest x-ray from February 06 shows cardiomegaly and bilateral effusions. Chest CT on February 01 showed mild to moderate bilateral pleural effusions. Echocardiogram February 01, 2021 showed left ventricular ejection fraction 65%, severe biatrial enlargement, small pericardial effusion, dilated inferior vena cava, diastolic function could not be assessed, moderate to severe pulmonary hypertension. INPATIENT MEDICATIONS: The patient is presently on Tylenol as needed, Combivent one puff inhaled q 6 hourly, Eliquis 5 mg by mouth twice a day, vitamin C 500 mg by mouth daily, docusate 100 mg by mouth twice a day, Cymbalta 20 mg by mouth daily, Lasix 60 mg by mouth daily, insulin, magnesium 400 mg by mouth daily, metoprolol 50 mg by mouth q 8 hours, Protonix 40 mg by mouth twice a day, Creon with meals, MiraLax as needed, potassium 40 mEq by mouth times 1, Senokot one tab by mouth every night at bedtime, Carafate 1 gm by mouth with meals and at bedtime, Spiriva one inhalation daily, vitamin D 1000 units daily. PROBLEMS: 1. Decompensated congestive heart failure. Recent imaging showing bilateral pleural effusions and the patient clinically has 1 to 2+ peripheral pitting edema. Her most echocardiogram from 10 days ago is reviewed. Diastolic function could not be assessed. It was indicative of moderate to severe pulmonary hypertension and dilated inferior vena cava with estimated high central venous pressure (CVP). I am stopping Lasix and starting the patient on torsemide 40 mg by mouth twice daily and we will see how she fairs with this oral diuretic regimen. 2. Metabolic alkalosis. It is chronic on review of prior labs. Serum bicarbonate fluctuates from 40s to 50 and is likely to be in compensation for her underlying respiratory acidosis and chronic obstructive pulmonary disease (COPD). 3. Hypokalemia. She received potassium supplementation. I will start her on amiloride as well for a potassium sparing diuretic effect. It will also ameliorate her alkalosis. 4. Hypomagnesemia. Most recent magnesium level was 1.4 two days ago. Repeat magnesium level is ordered and she is started on magnesium oxide supplementation as well. 5. Atrial fibrillation. She is rate controlled with metoprolol and intact coagulated with Eliquis. We will try to keep her potassium and magnesium as well repleted in view of her arrhythmia. She is receiving metoprolol 3 times a day and I will keep an eye on blood pressure with more aggressive torsemide regimen that she is being started on. Thank you for involving me in the care of Ms. Hsu. I will be happy to follow her along with you.
[2021-02-10] MEDS ORDERED: POTASSIUM CHLORIDE 10 MEQ SR TABLET PO SCH (09:00)
[2021-02-10] MEDS ORDERED: DULoxetine 20 MG CAP (CYMBALTA) PO SCH (09:00)
[2021-02-10] MEDS ORDERED: MAGNESIUM OXIDE 400MG TAB (MAG-OX) PO SCH (09:00)
--- NOTE | 2021-02-10 09:57 | IPNPDOC ---
PM&R Progress Note DATE OF SERVICE: February 10, 2021 Dcs Engineer Progress Note Subjective: Patient reporting multiple bowel movements today with abdominal cramping. She denies fevers or chills, but states it guillaume with urination. REVIEW OF SYSTEMS: The following is a completed review of systems and has been reviewed. Review of systems otherwise unremarkable. PAIN: Patient self reports chronic low back pain and left knee pain EYES: No recent vision changes EARS, NOSE, & THROAT: No throat pain, or dysphagia, or rhinorrhea CARDIOVASCULAR: Denies chest pain or palpitations PULMONARY: +shortness of breath with exertion GASTROINTESTINAL: +diarrhea GENITOURINARY: +dysuria MUSCULOSKELETAL: +generalized weakness NEUROLOGICAL: denies tremor, + paresthesias HEMATOLOGICAL: left knee/leg ecchymosis SKIN: denies rash PSYCHIATRIC: Unremarkable All other review of systems found to be negative. PHYSICAL EXAMINATION: VITAL SIGNS: Please see below. GENERAL: Pleasant and cooperative. No acute distress. HEENT: PERRL. Extraocular movements intact. Clear conjunctiva CARDIOVASCULAR: Regular rate and rhythm. No murmurs, rubs, or gallops LUNGS: Clear to auscultation bilaterally. No wheezes. No rhonchi ABDOMEN: mildly distended, soft, mildly TTP throughout all quadrants, hyperactive bowel sounds, NEUROLOGICAL: Alert and oriented times three. Cranial nerves II through XII grossly intact. Sensation diminished to light touch in stocking/glove pattern EXTREMITIES: 5\5 strength bilateral upper extremities. 4\5 strength right lower extremity. 4/5 strength in left lower extremity. +bilat LE edema (improving) SKIN: left calve and knee with ecchymosis LABORATORY DATA: Please see below. IMAGING: Imaging documentation personally reviewed by record ASSESSMENT:75-year-old F with past medical history of Afib, CHF who presents status post CHF exacerbation PLAN: 1. REhab- PT/OT advance mobility and ADLs, strengthen/stretch/maintain ROM all 4 limbs 2. Cardiac- hx of Afib on eliquis and metoprolol -chronic diastolic CHF with recent acute exacerbation- c/u fluid restriction, daily weights, lasix -medicine consulted to assist in overall management, will ask renal to follow along for fluid management given patient's multiple hospitalizations for CHF exacerbation 3. Resp- hx of COPD on home 02, c/u spiriva and combivent with recent hy percapnic encephalopathy in setting of CHF exacerbation plus opioid and benzo use requiring transfer off ARU to ICU on 02-01-21 - monitor for infection/worsening respiratory status -LEANNE not on CPAP -bilat pleural effusion s/p thoracentesis 01-21-21, c/u monitor for clinical decline -pulm nodule- 7 mm noncalcified module noted in right upper lobe incidentally on imaging, unchanged from prior chest imaging in october 2020. Patient should f/u outpatient with PCP 4. GI- +common bilat duct dilatation seen on recent CT stable from prior exams, per GI patient started on Creon for pancreatic insufficiency, c/u sucralfate and protonix, f/u outpatient GI -chronic constipation due to opioid use (now on hold) now having multiple loose stools and abdominal cramping, will order KUB and add simethicone and bentyl - d/c'd bowel meds 5. DVT ppx- on eliquis 6. Ortho- hx of multiple joint OA contributing to overall functional decline- c/u tylenol pr - swelling in left knee evaluated by ortho during patient's recent ICU stay- no concern for septic joint -left ankle pain work-up on recent ARU admission- no fracture 7. Endo- hx of DM- diet controlled with peripheral polyneuropathy contributing to overall functional decline 8. Breast mass - 1.4cm irregular mass noted in left breast incidentally on imaging. Patient should f/u outpatient with PCP for breast US or mammogram 9. Pain- avoid valium and oxycodone due to recent metabolic encephalopathic hypercapnia -patient agreeable to trial of cymbalta for her arthritis now that she is no longer on valium/opioids -lidoderm patch to low back 10. Hypokalemia and hypomagnesemia c/u to replete 11. Dispo- TBD Allergies Coded Allergies: adhesive tape (Verified Allergy, Mild, RASH, 01/13/21) latex (Verified Allergy, Mild, RASH, 01/13/21) azithromycin (Unverified Adverse Reaction, Mild, GI, 01/13/21) Listed under diet Vital Signs Vital Signs Date Time Temp Pulse Resp B/P (MAP) Pulse Ox O2 Delivery O2 Flow Rate FiO2 02/10/21 06:52 98.0 02/10/21 05:21 78 18 133/74 (93) 92 Nasal Cannula 2.0 Laboratory Data CBC/BMP Laboratory Tests 02/10/21 06:25 Labs 24H Laboratory Tests 2 02/09/21 11:24: Bedside Glucose (Misc Panel) 104 02/09/21 16:23: Bedside Glucose (Misc Panel) 99 02/09/21 19:35: Bedside Glucose (Misc Panel) 118H 02/10/21 06:25: Immature Granulocyte % (Auto) 0.3, Neutrophils (%) (Auto) 75.5H, Lymphocytes (%) (Auto) 11.0L, Monocytes (%) (Auto) 9.4H, Eosinophils (%) (Auto) 3.4H, Basophils (%) (Auto) 0.4, Neutrophils # (Auto) 7.3, Lymphocytes # (Auto) 1.1L, Monocytes # (Auto) 0.9H, Eosinophils # (Auto) 0.3, Basophils # (Auto) 0.0, Nucleated Red Blood Cells % (auto) 0.0, Anion Gap 3L, Glomerular Filtration Rate > 60.0, Calcium Level 9.1, Magnesium Level 1.3L 02/10/21 06:49: Bedside Glucose (Misc Panel) 93 Current Medications Current Medications Current Medications Medications (Trade) Dose Ordered Sig/Kiran Route PRN Reason Start Time Stop Time Status Last Admin Dose Admin Acetaminophen (Tylenol Tab) 650 mg Q4HP PRN PO fever/MILD PAIN (PS 1-4) 02/08/21 11:55 02/10/21 08:27 Albuterol/ Ipratropium (Combivent Respimat 100-20mcg) 1 puff RQ6H INH 02/08/21 20:00 02/10/21 07:16 Amiloride HCl (Midamor) 5 mg DAILY PO 02/09/21 09:00 Cancel Amiloride HCl (Midamor) 5 mg DAILY PO 02/10/21 09:00 02/10/21 08:27 Apixaban (Eliquis) 5 mg BID PO 02/08/21 21:00 02/10/21 08:27 Ascorbic Acid (Vitamin C) 500 mg DAILY PO 02/09/21 09:00 02/10/21 08:27 Bisacodyl (Dulcolax Suppository) 10 mg DAILYPRN PRN ID CONSTIPATION 02/08/21 11:55 Dextrose (Dextrose 50%) 25 ml ASDIRECTED PRN IV SEE LABEL COMMENTS 02/08/21 11:55 Docusate Sodium (Colace) 100 mg BID PO 02/08/21 21:00 02/09/21 07:45 Duloxetine HCl (Cymbalta) 20 mg DAILY PO 02/10/21 09:00 02/10/21 08:26 Furosemide (Lasix) 60 mg DAILY PO 02/09/21 09:00 02/09/21 13:00 DC 02/09/21 07:48 Glucagon (Glucagon) 1 mg ASDIRECTED PRN SC SEE LABEL COMMENTS 02/08/21 11:55 Glucose (Glucose) 16 GM ASDIRECTED PRN PO SEE LABEL COMMENTS 02/08/21 11:55 Insulin Human Lispro (HumaLOG INSULIN) SEE PROTOCOL TABLE AC SC 02/08/21 17:30 02/09/21 12:16 Insulin Human Lispro (HumaLOG INSULIN) SEE PROTOCOL TABLE QHS SC 02/08/21 21:00 Lidocaine (Lidoderm Patch) 1 patch DAILY TD 02/09/21 14:20 02/10/21 08:29 Magnesium Oxide (Mag-Ox) 400 mg BID PO 02/10/21 09:00 Magnesium Oxide (Mag-Ox) 400 mg DAILY PO 02/09/21 09:00 02/10/21 08:25 DC 02/09/21 07:45 Metoprolol Tartrate (Lopressor) 50 mg Q8H PO 02/08/21 22:00 02/10/21 05:20 Non-Formulary Medication ( See Comment Field Below ) REMOVE LIDODERM PATCH DAILY@21 XX 02/09/21 21:00 02/09/21 20:15 Pancrelipase (Creon-24) 2 ea WM PO 02/08/21 18:00 02/10/21 08:26 Pantoprazole Sodium (Protonix) 40 mg BID PO 02/08/21 21:00 02/10/21 08:27 Polyethylene Glycol (Miralax) 1 pkt DAILY PRN PO CONSTIPATION 02/08/21 11:55 02/09/21 07:43 Potassium Chloride (Micro-K Extencaps) 10 meq DAILY PO 02/09/21 09:00 02/09/21 10:45 DC 02/09/21 07:47 Potassium Chloride (Micro-K Extencaps) 20 meq DAILY PO 02/10/21 09:00 Cancel Senna (Senokot) 1 tab QHS PO 02/08/21 21:00 02/08/21 21:21 Sucralfate (Carafate) 1 gm ACHS PO 02/08/21 17:30 02/10/21 08:26 Tiotropium [place] (Spiriva Handihaler) 1 inhalation DAILY@08 INH 02/09/21 08:00 Torsemide (Demadex) 40 mg BID@ PO 02/09/21 14:00 02/10/21 08:27 Vitamin D (Vitamin D) 1,000 units DAILY PO 02/09/21 09:00 02/10/21 08:26 CHIRAG LARA MD February 10, 2021 09:57
[2021-02-10 14:00] VITALS: BP 131/81
[2021-02-10] MEDS: TIOTROPIUM INHALER/CAPSULE (SPIRIVA) INH SCH (17:00)
[2021-02-10] MEDS ORDERED: SIMETHICONE 80MG CHEW TAB PO ONE (17:50)
--- NOTE | 2021-02-10 18:37 | REP ---
INDICATION: r/o obstuction. COMPARISON: Comparison radiograph January 13, 2021.. TECHNIQUE: Two supine views of the abdomen are provided. FINDINGS: There is air and and some stool in a nondistended colon. One or 2 loops of air-filled small bowel are seen. No evidence of obstruction. Flank stripes are intact. Vascular calcifications noted. There are dense calcifications in the right upper quadrant unchanged from the prior study. These are noted to be granulomatous calcifications within the liver on CT study of the chest from February 01, 2021. IMPRESSION: Unremarkable bowel gas pattern. No radiographic evidence of obstruction. <Electronically signed by Darion Rodarte > 02/10/21 [id number]
[2021-02-10] MEDS ORDERED: DICYCLOMINE 10 MG CAP PO ONE (19:00)
--- NOTE | 2021-02-10 19:02 | IPN ---
NEPHROLOGY PROGRESS NOTE DATE: 02/10/2021 SUBJECTIVE: Ms. Hsu is seen and examined this morning at the bedside in the rehabilitation unit. She states she worked a lot with the physical therapist and is tired now and just wants to rest and complains of feeling cold. She also tells me that she "urinated a lot" the past day. She denies any shortness of breath at rest. PHYSICAL EXAMINATION: Temperature 97.4, pulse 84, respiratory rate 18, blood pressure 131/81, saturating 94% on 2 liters nasal cannula. INTAKE AND OUTPUT: Intake yesterday was not fully recorded. There was 15 urine voids recorded yesterday and 5 bowel movements. Weight in the bed scale is 79.5 kg, which is 2 kilos lower than what it was yesterday. GENERAL: Patient is seen lying in bed, covered in blankets, elderly female, awake, alert, oriented, and in no apparent distress. HEENT: Extraocular muscles are intact. Tongue is moist. Neck is supple. Jugular veins are only mildly elevated. HEART SOUNDS: Regular. S1, S2. There is significant improvement in leg edema just in one day. Her edema is now 1+ bilaterally. LUNGS: Diminished breath sounds at both bases without rales or rhonchus. ABDOMEN: Soft, obese and nontender. NEUROLOGIC: Awake, alert and oriented times three. SKIN: Warm and dry. EXTREMITIES: Negative for clubbing or cyanosis, but do show 1+ edema, which is improved as compared to yesterday. LABORATORY STUDIES: White count 9.7, hemoglobin 11.1, platelets 213. Sodium 142, potassium 3.6, bicarbonate 44, BUN 19, creatinine 0.9, magnesium 1.3. INPATIENT MEDICATIONS: Reviewed by myself. I increased her magnesium oxide to 400 mg by mouth twice daily and I decreased the torsemide to 40 mg once a day. Her remainder of medications are unchanged as compared to yesterday. PROBLEMS: 1. Decompensated congestive heart failure (diastolic dysfunction versus cor pulmonale). Patient has recent imaging with bilateral pleural effusions and she had significant leg edema yesterday. I put her on torsemide 40 mg twice a day and with just two doses, she had a brisk diuresis. Her weight is already down 2 kilograms and her leg edema is already much improved. I cut the torsemide down to 40 mg once a day. 2. Metabolic alkalosis. It is chronic and it is most likely compensation for underlying respiratory acidosis and chronic obstructive pulmonary disease (COPD). We will keep an eye on bicarbonate as we diurese her. Her older labs show bicarbonate fluctuates between 40-50. 3. Hypokalemia. She received a dose of amiloride today for its potassium-sparing effect. It also ameliorates alkalosis. 4. Hypomagnesemia. I increased the magnesium oxide to 400 mg twice a day. 5. Atrial fibrillation. She is rate controlled with metoprolol and anticoagulated with Eliquis. We will try to keep potassium and magnesium repleted in view of arrhythmia. 6. Bilateral pleural effusions. Continue with torsemide diuretic and she is on an 1800 mL fluid restriction. Her oxygen saturations are stable on her home oxygen.
[2021-02-10 20:00] VITALS: BP 139/79
[2021-02-10] MEDS: **NOTE PATIENT COMMENT** MISC XX SCH (21:15)
[2021-02-10] MEDS ORDERED: DICYCLOMINE 10 MG CAP PO PRN (22:10)
[2021-02-11] MEDS: COMBIVENT RESPIMAT 100-20MCG INHALER 4GM INH SCH ×4 (02:06→20:11)
[2021-02-11 05:09] VITALS: BP 122/77
[2021-02-11] MEDS: METOPROLOL TART 50 MG TAB PO SCH ×3 (06:21→21:02)
[2021-02-11] MEDS: ACETAMINOPHEN TAB 650MG DOSE (2X325MG) PO PRN ×2 (06:31→20:39)
[2021-02-11] MEDS: HumaLOG INSULIN (NovoLOG) PER UNIT SC SCH ×4 (07:10→20:39)
[2021-02-11] MEDS: TIOTROPIUM INHALER/CAPSULE (SPIRIVA) INH SCH (08:00)
[2021-02-11 08:08] LABS: BASO # 0.1 10^3/uL (0.0-0.2); BASO % 0.5 % (0.0-1.0); EOS # 0.2 10^3/uL (0.0-0.5); EOS % 2.5 % (0.0-3.0); HEMATOCRIT 38.2 % (36.0-47.0); HEMOGLOBIN 11.8 g/dl (12.0-15.5); LYMPH # 0.9 10^3/uL (1.5-5.0); LYMPH % 10.1 % (24.0-44.0); MEAN CORPUSCULAR HGB CONC 30.9 g/dl (32.0-36.5); MEAN CORPUSCULAR VOLUME 100.3 fl (80.0-96.0); MONO # 0.8 10^3/uL (0.0-0.8); MONO % 8.5 % (2.0-8.0); NEUTROPHILS # 7.1 10^3/uL (1.5-8.5); PLATELET COUNT, AUTOMATED 230 10^3/uL (150-450); RED BLOOD COUNT 3.81 10^6/uL (4.00-5.40); WHITE BLOOD COUNT 9.1 10^3/uL (4.0-10.0)
[2021-02-11] MEDS: TORSEMIDE 20 MG TAB PO SCH (08:29)
[2021-02-11] MEDS: SIMETHICONE 80MG CHEW TAB PO SCH ×3 (08:29→20:38)
[2021-02-11] MEDS: APIXABAN 5 MG TAB (ELIQUIS) PO SCH ×2 (08:30→20:38)
[2021-02-11] MEDS: aMILoride 5 MG TAB PO SCH (08:30)
[2021-02-11] MEDS: VITAMIN D 1,000 INTERNATIONAL UNITS TABLET PO SCH (08:30)
[2021-02-11] MEDS: PANTOPRAZOLE 40MG TAB (PROTONIX) PO SCH ×2 (08:31→20:38)
[2021-02-11] MEDS: ASCORBIC ACID 500 MG TAB PO SCH (08:31)
[2021-02-11] MEDS: CREON-24 CAPSULE PO SCH ×3 (08:31→17:36)
[2021-02-11] MEDS: SUCRALFATE 1 GM TAB PO SCH ×4 (08:31→20:38)
[2021-02-11 08:32] LABS: PERCENT SATURATION 36.7 % (13.2-45.0)
[2021-02-11] MEDS: LIDOCAINE 5% (LIDODERM) PATCH TD SCH (08:33)
[2021-02-11] MEDS: REMEDY PHYTOPLEX Z-GUARD PASTE 113GM TUBE (FROM STOREROOM PRODUCT) TOP SCH ×2 (08:33→16:00)
[2021-02-11 08:34] LABS: ALBUMIN 2.8 GM/DL (3.2-5.2); BILIRUBIN,TOTAL 1.3 MG/DL (0.2-1.0); CALCIUM LEVEL 8.9 MG/DL (8.8-10.2); CREATININE FOR GFR 1.15 MG/DL (0.55-1.30); GLOMERULAR FILTRATION RATE 48.7 (>39); POTASSIUM SERUM 3.4 MEQ/L (3.5-5.1); TOTAL PROTEIN 5.4 GM/DL (6.4-8.2)
--- NOTE | 2021-02-11 09:35 | IPNPDOC ---
PM&R Progress Note DATE OF SERVICE: February 11, 2021 Vibration Technician Progress Note Subjective: Patient reporting her abdomen feels less painful today, but that she is still having loose stools. She denies fevers or chills. REVIEW OF SYSTEMS: The following is a completed review of systems and has been reviewed. Review of systems otherwise unremarkable. PAIN: Patient self reports chronic low back pain and left knee pain EYES: No recent vision changes EARS, NOSE, & THROAT: No throat pain, or dysphagia, or rhinorrhea CARDIOVASCULAR: Denies chest pain or palpitations PULMONARY: +shortness of breath with exertion GASTROINTESTINAL: +diarrhea (slight improvement) GENITOURINARY: +dysuria MUSCULOSKELETAL: +generalized weakness NEUROLOGICAL: denies tremor, + paresthesias HEMATOLOGICAL: left knee/leg ecchymosis SKIN: denies rash PSYCHIATRIC: Unremarkable All other review of systems found to be negative. PHYSICAL EXAMINATION: VITAL SIGNS: Please see below. GENERAL: Pleasant and cooperative. No acute distress. HEENT: PERRL. Extraocular movements intact. Clear conjunctiva CARDIOVASCULAR: Regular rate and rhythm. No murmurs, rubs, or gallops LUNGS: Clear to auscultation bilaterally. No wheezes. No rhonchi ABDOMEN: mildly distended, soft, mildly TTP throughout all quadrants, normal- active bowel sounds NEUROLOGICAL: Alert and oriented times three. Cranial nerves II through XII grossly intact. Sensation diminished to light touch in stocking/glove pattern EXTREMITIES: 5\5 strength bilateral upper extremities. 4\5 strength right lower extremity. 4/5 strength in left lower extremity. +bilat LE edema (improving) SKIN: left calve and knee with ecchymosis LABORATORY DATA: Please see below. IMAGING: Imaging documentation personally reviewed by record ASSESSMENT:75-year-old F with past medical history of Afib, CHF who presents sta tus post CHF exacerbation PLAN: 1. REhab- PT/OT advance mobility and ADLs, strengthen/stretch/maintain ROM all 4 limbs- ambulating with RW 2. Cardiac- hx of Afib on eliquis and metoprolol -chronic diastolic CHF with recent acute exacerbation- c/u fluid restriction, daily weights, c/u diuretics per renal -medicine consulted to assist in overall management, will ask renal to follow along for fluid management given patient's multiple hospitalizations for CHF exacerbation 3. Resp- hx of COPD on home 02, c/u spiriva and combivent with recent hypercapnic encephalopathy in setting of CHF exacerbation plus opioid and benzo use requiring transfer off ARU to ICU on 02-01-21 - monitor for infection/ worsening respiratory status -LEANNE not on CPAP -bilat pleural effusion s/p thoracentesis 01-21-21, c/u monitor for clinical decline -pulm nodule- 7 mm noncalcified module noted in right upper lobe incidentally on imaging, unchanged from prior chest imaging in october 2020. Patient should f/u outpatient with PCP 4. GI- +common bilat duct dilatation seen on recent CT stable from prior exams, per GI patient started on Creon for pancreatic insufficiency, c/u sucralfate and protonix, f/u outpatient GI -chronic constipation due to opioid use (now on hold) pt continue to have mu ltiple loose stools and abdominal cramping, KUB 02/10/21 negative for obstruction, abdominal exam better today, some concern for C diff, however patient is on magnesium which may be contributing, frequency of stools improving, and recent laxative use, no white count, will hold off testing for now -c/u simethicone and bentyl 5. DVT ppx- on eliquis 6. Ortho- hx of multiple joint OA contributing to overall functional decline- c/u tylenol prn - swelling in left knee evaluated by ortho during patient's recent ICU stay- no concern for septic joint -left ankle pain work-up on recent ARU admission- no fracture 7. Endo- hx of DM- diet controlled with peripheral polyneuropathy contributing to overall functional decline 8. Breast mass - 1.4cm irregular mass noted in left breast incidentally on imaging. Patient should f/u outpatient with PCP for breast US or mammogram 9. Pain- avoid valium and oxycodone due to recent metabolic encephalopathic hypercapnia -d/c'd cymbalta as may have contributed to patient;s abdominal sx -lidoderm patch to low back 10. Hypokalemia and hypomagnesemia c/u to replete, will switc to IV today and recheck Mg levels tomorrow- patient's diarrhea may be related to magnesium 11. - patient with dysuria- given diarrhea and concern for c diff, will wait until UA cultures before starting abx to avoid increasing chance of C diff- patient afebrile, no white count 12. Dispo- TBD Allergies Coded Allergies: adhesive tape (Verified Allergy, Mild, RASH, 01/13/21) latex (Verified Allergy, Mild, RASH, 01/13/21) azithromycin (Unverified Adverse Reaction, Mild, GI, 01/13/21) Listed under diet Vital Signs Vital Signs Date Time Temp Pulse Resp B/P (MAP) Pulse Ox O2 Delivery O2 Flow Rate FiO2 02/11/21 08:00 2.0 02/11/21 06:21 64 122/77 02/11/21 05:09 96.7 19 94 Nasal Cannula Laboratory Data CBC/BMP Laboratory Tests 02/11/21 07:20 Labs 24H Laboratory Tests 2 02/10/21 11:30: Bedside Glucose (Misc Panel) 128H 02/10/21 16:25: Urine Color STRAW, Urine Appearance CLEAR, Urine pH 8.0, Urine Specific [place] 1.006, Urine Protein NEGATIVE, Urine Glucose (UA) NEGATIVE, Urine Ketones NEGATIVE, Urine Blood NEGATIVE, Urine Nitrite NEGATIVE, Urine Bilirubin NE GATIVE, Urine Urobilinogen 0.2, Urine Leukocyte Esterase 1+H, Urine WBC (Auto) 32H, Urine RBC (Auto) 2, Urine Hyaline Casts (Auto) 0, Urine Bacteria (Auto) 1+H, Urine Squamous Epithelial Cells 3, Urine Sperm (Auto) 02/10/21 16:33: Bedside Glucose (Misc Panel) 110 02/10/21 19:49: Bedside Glucose (Misc Panel) 119H 02/11/21 05:35: Bedside Glucose (Misc Panel) 96 02/11/21 07:20: Immature Granulocyte % (Auto) 0.4, Neutrophils (%) (Auto) 78.0H, Lymphocytes (%) (Auto) 10.1L, Monocytes (%) (Auto) 8.5H, Eosinophils (%) (Auto) 2.5, Basophils (%) (Auto) 0.5, Neutrophils # (Auto) 7.1, Lymphocytes # (Auto) 0.9L, Monocytes # (Auto) 0.8, Eosinophils # (Auto) 0.2, Basophils # (Auto) 0.1, Nucleated Red Blood Cells % (auto) 0.0, Anion Gap 5L, Glomerular Filtration Rate 48.7, Calcium Level 8.9, Iron Level 73, Total Iron Binding Capacity 199L, Transferrin % Saturation 36.7, Total Bilirubin 1.3H, Aspartate Amino Transf (AST/SGOT) 11, Alanine Aminotransferase (ALT/SGPT) 11L, Alkaline Phosphatase 77, Total Protein 5.4L, Albumin 2.8L, Albumin/Globulin Ratio 1.1L Microbiology Microbiology 02/10/21 Urine Culture, Received Pending Current Medications Current Medications Current Medications Medications (Trade) Dose Ordered Sig/Kiran Route PRN Reason Start Time Stop Time Status Last Admin Dose Admin Acetaminophen (Tylenol Tab) 650 mg Q4HP PRN PO fever/MILD PAIN (PS 1-4) 02/08/21 11:55 02/11/21 06:31 Albuterol/ Ipratropium (Combivent Respimat 100-20mcg) 1 puff RQ6H INH 02/08/21 20:00 02/11/21 07:51 Amiloride HCl (Midamor) 5 mg DAILY PO 02/09/21 09:00 Cancel Amiloride HCl (Midamor) 5 mg DAILY PO 02/10/21 09:00 02/11/21 08:30 Apixaban (Eliquis) 5 mg BID PO 02/08/21 21:00 02/11/21 08:30 Ascorbic Acid (Vitamin C) 500 mg DAILY PO 02/09/21 09:00 02/11/21 08:31 Bisacodyl (Dulcolax Suppository) 10 mg DAILYPRN PRN AR CONSTIPATION 02/08/21 11:55 Cancel Dextrose (Dextrose 50%) 25 ml ASDIRECTED PRN IV SEE LABEL COMMENTS 02/08/21 11:55 Dicyclomine HCl (Bentyl) 10 mg Q6HP PRN PO abdominal pain 02/10/21 22:10 Docusate Sodium (Colace) 100 mg BID PO 02/08/21 21:00 02/10/21 13:52 DC 02/09/21 07:45 Duloxetine HCl (Cymbalta) 20 mg DAILY PO 02/10/21 09:00 02/10/21 18:40 DC 02/10/21 08:26 Furosemide (Lasix) 60 mg DAILY PO 02/09/21 09:00 02/09/21 13:00 DC 02/09/21 07:48 Glucagon (Glucagon) 1 mg ASDIRECTED PRN SC SEE LABEL COMMENTS 02/08/21 11:55 Glucose (Glucose) 16 GM ASDIRECTED PRN PO SEE LABEL COMMENTS 02/08/21 11:55 Insulin Human Lispro (HumaLOG INSULIN) SEE PROTOCOL TABLE AC SC 02/08/21 17:30 02/09/21 12:16 Insulin Human Lispro (HumaLOG INSULIN) SEE PROTOCOL TABLE QHS SC 02/08/21 21:00 Lidocaine (Lidoderm Patch) 1 patch DAILY TD 02/09/21 14:20 02/11/21 08:33 Magnesium Oxide (Mag-Ox) 400 mg BID PO 02/10/21 09:00 02/10/21 17:52 DC 02/10/21 10:05 Magnesium Oxide (Mag-Ox) 400 mg BID PO 02/12/21 09:00 UNV Magnesium Oxide (Mag-Ox) 400 mg DAILY PO 02/09/21 09:00 02/10/21 08:25 DC 02/09/21 07:45 Metoprolol Tartrate (Lopressor) 50 mg Q8H PO 02/08/21 22:00 02/11/21 06:21 Non-Formulary Medication ( See Comment Field Below ) REMOVE LIDODERM PATCH DAILY@21 XX 02/09/21 21:00 02/10/21 21:15 Pancrelipase (Creon-24) 2 ea WM PO 02/08/21 18:00 02/11/21 08:31 Pantoprazole Sodium (Protonix) 40 mg BID PO 02/08/21 21:00 02/11/21 08:31 Polyethylene Glycol (Miralax) 1 pkt DAILY PRN PO CONSTIPATION 02/08/21 11:55 02/10/21 13:52 DC 02/09/21 07:43 Potassium Chloride (Micro-K Extencaps) 10 meq DAILY PO 02/09/21 09:00 02/09/21 10:45 DC 02/09/21 07:47 Potassium Chloride (Micro-K Extencaps) 20 meq DAILY PO 02/10/21 09:00 Cancel Senna (Senokot) 1 tab QHS PO 02/08/21 21:00 02/10/21 13:52 DC 02/08/21 21:21 Simethicone (Mylicon) 80 mg TID PO 02/11/21 09:00 02/11/21 08:29 Sucralfate (Carafate) 1 gm ACHS PO 02/08/21 17:30 02/11/21 08:31 Tiotropium [place] (Spiriva Handihaler) 1 inhalation DAILY@08 INH 02/09/21 08:00 Torsemide (Demadex) 40 mg BID@, PO 02/09/21 14:00 02/10/21 13:53 DC 02/10/21 08:27 Torsemide (Demadex) 40 mg DAILY PO 02/11/21 09:00 02/11/21 08:29 Vitamin D (Vitamin D) 1,000 units DAILY PO 02/09/21 09:00 02/11/21 08:30 CHIRAG LARA MD February 11, 2021 09:35
[2021-02-11 09:56] LABS: MAGNESIUM LEVEL 1.3 MG/DL (1.8-2.4)
[2021-02-11] MEDS ORDERED: POTASSIUM CHLORIDE 10 MEQ SR TABLET PO ONE (10:00)
[2021-02-11] MEDS: MAG SULF 1GM/100ML (MAG RUN) 1 GM in IV 1 EA IV SCH ×2 (12:36→13:47)
[2021-02-11 13:45] VITALS: BP 125/62
[2021-02-11] MEDS: DICYCLOMINE 10 MG CAP PO SCH ×2 (16:14→20:38)
[2021-02-11 20:00] VITALS: BP 121/71
[2021-02-11] MEDS: **NOTE PATIENT COMMENT** MISC XX SCH (20:39)
--- NOTE | 2021-02-11 21:45 | IPN ---
NEPHROLOGY PROGRESS NOTE DATE: 02/11/2021 SUBJECTIVE: The patient is seen and examined this morning at the bedside. She complains of abdominal cramping and diarrhea yesterday. She complains of fatigue and tiredness and poor appetite, otherwise denies any shortness of breath or chest pain. OBJECTIVE: PHYSICAL EXAMINATION: VITAL SIGNS: Temperature 97.0, pulse 84, respiratory rate 19, blood pressure 125/62, saturating 94% on 2 liters nasal cannula. Weight in the bed scale today is80.5 kg which is one kg higher than it was yesterday. There were 11 bowel movements recorded all in all in the past 24 hours. GENERAL APPEARANCE: The patient I seen awake and alert and oriented, lying in bed, covered in blankets, in no apparent distress. HEENT: The extraocular muscles are intact. The tongue is moist. NECK: Supple. Jugular veins are mildly elevated. HEART: Regular. She is seen comfortable on nasal cannula. There is no murmur. There is 1+ leg edema. Peripheral pulse is palpable. LUNGS: Symmetric air entry with prolonged expiration and diminished breath sounds at the bases. ABDOMEN: Soft and mildly tender to palpation in the epigastrium. EXTREMITIES: Negative for clubbing or cyanosis. There is at most 1+ pitting edema. NEUROLOGICAL: She is oriented x3, interactive and conversational, at baseline mentation. LABORATORY STUDIES: White count 9.1, hemoglobin 11.8, platelet count 230. Sodium 141, potassium 3.4, bicarbonate 42, BUN 21, creatinine 1.1, magnesium 1.3, albumin 2.8, BNP 3,400. IMAGING: Abdominal x-ray done yesterday shows unremarkable bowel gas pattern. INPATIENT MEDICATIONS: The patient received 2 grams of magnesium sulfate through the IV. She continues on Torsemide 40 mg p.o. daily, Amiloride 5 mg p.o. daily. Her oral magnesium was held. She got a dose of Potassium Chloride 40 mEq p.o. times one, and she was also started on Simethicone 80 mg p.o. three times daily and Dicyclomine 10 mg p.o. three times daily. Remainder of medications are unchanged as compared to yesterday. PROBLEMS: 1. Decompensated congestive heart failure (diastolic dysfunction versus cor pulmonale) in this patient with leg edema and bilateral pleural effusions she is having significant and recurrent diarrhea. I cut her Torsemide down to 40 mg once daily. Her leg edema looks better than a couple of days ago and I am going to leave her on this diuretic dose for now. Her urine output is not being quantified so we will rely on daily weights. 2. Metabolic alkalosis it is chronic and it is in compensation for underlying respiratory acidosis/COPD. We will keep an eye on serum bicarbonate levels as she is on a loop diuretic. On her prior labs, her bicarbonate fluctuates between 40 to 50. 3. Hypokalemia she is on Amiloride for its potassium sparing and metabolic alkalosis ameliorating effect. She also received a dose of oral potassium today. 4. Hypomagnesemia - magnesium level 1.3. She had diarrhea yesterday. Her oral magnesium was held. She was given 2 runs of IV magnesium. 5. Bilateral pleural effusions - The patient is on Torsemide plus Amiloride combination diuretic once daily for each. She is on a 1.8 liter fluid restriction. She is having diarrhea. I am not going to diurese here more aggressively than this. 6. Chronic kidney disease 2/chronic kidney disease stage 3a her renal function still remains within her baseline range but we will keep an eye given that she is having diarrhea and is on diuretic. I do not want to over diurese her.
[2021-02-12] MEDS: COMBIVENT RESPIMAT 100-20MCG INHALER 4GM INH SCH ×4 (01:52→20:41)
[2021-02-12] MEDS: ACETAMINOPHEN TAB 650MG DOSE (2X325MG) PO PRN ×3 (03:44→21:59)
[2021-02-12 06:00] VITALS: BP 118/61
[2021-02-12] MEDS: METOPROLOL TART 50 MG TAB PO SCH ×3 (06:07→21:58)
[2021-02-12 07:05] LABS: BASO # 0.1 10^3/uL (0.0-0.2); BASO % 0.5 % (0.0-1.0); EOS # 0.3 10^3/uL (0.0-0.5); EOS % 2.6 % (0.0-3.0); HEMATOCRIT 35.6 % (36.0-47.0); HEMOGLOBIN 11.2 g/dl (12.0-15.5); LYMPH # 1.3 10^3/uL (1.5-5.0); LYMPH % 13.6 % (24.0-44.0); MEAN CORPUSCULAR HEMOGLOBIN 31.1 pg (27.0-33.0); MEAN CORPUSCULAR HGB CONC 31.5 g/dl (32.0-36.5); MEAN CORPUSCULAR VOLUME 98.9 fl (80.0-96.0); NEUTROPHILS # 7.2 10^3/uL (1.5-8.5); NEUTROPHILS % 72.9 % (36.0-66.0); PLATELET COUNT, AUTOMATED 214 10^3/uL (150-450); WHITE BLOOD COUNT 9.8 10^3/uL (4.0-10.0)
[2021-02-12] MEDS: TIOTROPIUM INHALER/CAPSULE (SPIRIVA) INH SCH (07:12)
[2021-02-12 07:23] LABS: CALCIUM LEVEL 8.6 MG/DL (8.8-10.2); CREATININE FOR GFR 1.24 MG/DL (0.55-1.30); GLOMERULAR FILTRATION RATE 44.7 (>39); POTASSIUM SERUM 3.4 MEQ/L (3.5-5.1)
[2021-02-12] MEDS: HumaLOG INSULIN (NovoLOG) PER UNIT SC SCH ×2 (07:30→11:43)
[2021-02-12] MEDS: PANTOPRAZOLE 40MG TAB (PROTONIX) PO SCH ×2 (08:14→21:58)
[2021-02-12] MEDS: SIMETHICONE 80MG CHEW TAB PO SCH ×3 (08:14→21:58)
[2021-02-12] MEDS: CREON-24 CAPSULE PO SCH ×3 (08:14→17:28)
[2021-02-12] MEDS: ASCORBIC ACID 500 MG TAB PO SCH (08:14)
[2021-02-12] MEDS: TORSEMIDE 20 MG TAB PO SCH (08:14)
[2021-02-12] MEDS: aMILoride 5 MG TAB PO SCH (08:14)
[2021-02-12] MEDS: VITAMIN D 1,000 INTERNATIONAL UNITS TABLET PO SCH (08:15)
[2021-02-12] MEDS: LIDOCAINE 5% (LIDODERM) PATCH TD SCH (08:15)
[2021-02-12] MEDS: DICYCLOMINE 10 MG CAP PO SCH ×3 (08:15→21:58)
[2021-02-12] MEDS: APIXABAN 5 MG TAB (ELIQUIS) PO SCH ×2 (08:15→21:58)
[2021-02-12] MEDS: SUCRALFATE 1 GM TAB PO SCH ×4 (08:15→21:58)
[2021-02-12] MEDS ORDERED: MAGNESIUM OXIDE 400MG TAB (MAG-OX) PO SCH (09:00)
--- NOTE | 2021-02-12 09:37 | IPNPDOC ---
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 She states at the moment her abdominal pain feels better, but that early this morning she had sharp pains and states at home she takes percocet at home for this and would like to try a small dose here. She understands the respiratory risks says she will ask for it sparingly. REVIEW OF SYSTEMS: The following is a completed review of systems and has been reviewed. Review of systems otherwise unremarkable. PAIN: Patient self reports chronic low back pain and left knee pain EYES: No recent vision changes EARS, NOSE, & THROAT: No throat pain, or dysphagia, or rhinorrhea CARDIOVASCULAR: Denies chest pain or palpitations PULMONARY: +shortness of breath with exertion GASTROINTESTINAL: +diarrhea (slight improvement) GENITOURINARY: +dysuria MUSCULOSKELETAL: +generalized weakness NEUROLOGICAL: denies tremor, + paresthesias HEMATOLOGICAL: left knee/leg ecchymosis SKIN: denies rash PSYCHIATRIC: Unremarkable All other review of systems found to be negative. PHYSICAL EXAMINATION: VITAL SIGNS: Please see below. GENERAL: Pleasant and cooperative. No acute distress. HEENT: PERRL. Extraocular movements intact. Clear conjunctiva CARDIOVASCULAR: Regular rate and rhythm. No murmurs, rubs, or gallops LUNGS: Clear to auscultation bilaterally. No wheezes. No rhonchi ABDOMEN: non-distended, soft, mildly TTP throughout all quadrants, normal-active bowel sounds NEUROLOGICAL: Alert and oriented times three. Cranial nerves II through XII grossly intact. Sensation diminished to light touch in stocking/glove pattern EXTREMITIES: 5\5 strength bilateral upper extremities. 4\5 strength right lower extremity. 4/5 strength in left lower extremity. +bilat LE edema (improving) SKIN: left calve and knee with ecchymosis LABORATORY DATA: Please see below. IMAGING: Imaging documentation personally reviewed by record ASSESSMENT:75-year-old F with past medical history of Afib, CHF who presents status post CHF exacerbation PLAN: 1. REhab- PT/OT advance mobility and ADLs, strengthen/stretch/maintain ROM all 4 limbs- ambulating with RW 2. Cardiac- hx of Afib on eliquis and metoprolol -chronic diastolic CHF with recent acute exacerbation- c/u fluid restriction, daily weights, c/u diuretics per renal -medicine consulted to assist in overall management, will ask renal to follow along for fluid management given patient's multiple hospitalizations for CHF exacerbation 3. Resp- hx of COPD on home , c/u spiriva and combivent with recent hypercapnic encephalopathy in setting of CHF exacerbation plus opioid and benzo use requiring transfer off ARU to ICU on 02-01-21 - monitor for infe ction/worsening respiratory status -LEANNE not on CPAP -bilat pleural effusion s/p thoracentesis 01-21-21, c/u monitor for clinical decline -pulm nodule- 7 mm noncalcified module noted in right upper lobe incidentally on imaging, unchanged from prior chest imaging in october 2020. Patient should f/u outpatient with PCP 4. GI- +common bilat duct dilatation seen on recent CT (01/13/21) stable from prior exams, per GI patient started on Creon for pancreatic insufficiency, c/u sucralfate and protonix, f/u outpatient GI -chronic constipation due to opioid use, opioids on hold, however pt continue to have loose stools and abdominal cramping that is improving, but still troubling to patient so have agreed to trial very low dose percocet to see if helps her pain- no abdominal rigidity/guarding, KUB 02/10/21 negative for obstruction, abdominal exam still better today - some concern for C diff, however patient recently on magnesium which may be contributing to loose stools (frequency improving) and recent laxative use, no white count, will hold off testing for now and order repeat Gallbladder US for 02-13-21 to monitor known CBD dilatation to see if any changes, may need to reconsult GI -c/u simethicone and bentyl 5. DVT ppx- on eliquis 6. Ortho- hx of multiple joint OA contributing to overall functional decline- c/u tylenol prn - swelling in left knee evaluated by ortho during patient's recent ICU stay- no concern for septic joint -left ankle pain work-up on recent ARU admission- no fracture 7. Endo- hx of DM- diet controlled with peripheral polyneuropathy contributing to overall functional decline 8. Breast mass - 1.4cm irregular mass noted in left breast incidentally on imaging. Patient should f/u outpatient with PCP for breast US or mammogram 9. Pain- avoiding valium due to recent metabolic encephalopathic hypercapnia, patient requesting half tab of Percocet for her abdominal pain which is intermittent, will trial 1/2 tab percocet 5-325 q8h prn to be held for sedation/RR <12/AMS -d/c'd cymbalta as may have contributed to patient's abdominal sx -lidoderm patch to low back 10. Hypokalemia-c/u to replete prn -hypomagnesemia Mg 1.8 today s/p 2 Mg runs 02-11, will d/c oral Mg 11. - patient with dysuria- Ucx + for klebsiella PNA will start levquin 250mg x 3 days 12. Dispo- TBD Allergies Coded Allergies: adhesive tape (Verified Allergy, Mild, RASH, 01/13/21) latex (Verified Allergy, Mild, RASH, 01/13/21) azithromycin (Unverified Adverse Reaction, Mild, GI, 01/13/21) Listed under diet Vital Signs Vital Signs Date Time Temp Pulse Resp B/P (MAP) Pulse Ox O2 Delivery O2 Flow Rate FiO2 02/12/21 08:00 2.0 02/12/21 06:07 78 118/61 02/12/21 06:00 98.3 20 93 Nasal Cannula Laboratory Data CBC/BMP Laboratory Tests 02/12/21 06:40 Labs 24H Laboratory Tests 2 02/11/21 11:46: Bedside Glucose (Misc Panel) 112H 02/11/21 16:31: Bedside Glucose (Misc Panel) 109 02/11/21 19:36: Bedside Glucose (Misc Panel) 119H 02/12/21 06:03: Bedside Glucose (Misc Panel) 99 02/12/21 06:40: Immature Granulocyte % (Auto) 0.4, Neutrophils (%) (Auto) 72.9H, Lymphocytes (%) (Auto) 13.6L, Monocytes (%) (Auto) 10.0H, Eosinophils (%) (Auto) 2.6, Basophils (%) (Auto) 0.5, Neutrophils # (Auto) 7.2, Lymphocytes # (Auto) 1.3L, Monocytes # (Auto) 1.0H, Eosinophils # (Auto) 0.3, Basophils # (Auto) 0.1, Nucleated Red Blood Cells % (auto) 0.0, Anion Gap 5L, Glomerular Filtration Rate 44.7, Calcium Level 8.6L Microbiology Microbiology 02/10/21 Urine Culture - Final, Complete Klebsiella Pneumoniae Current Medications Current Medications Current Medications Medications (Trade) Dose Ordered Sig/Kiran Route PRN Reason Start Time Stop Time Status Last Admin Dose Admin Acetaminophen (Tylenol Tab) 650 mg Q4HP PRN PO fever/MILD PAIN (PS 1-4) 02/08/21 11:55 02/12/21 09:33 Albuterol/ Ipratropium (Combivent Respimat 100-20mcg) 1 puff RQ6H INH 02/08/21 20:00 02/12/21 07:11 Amiloride HCl (Midamor) 5 mg DAILY PO 02/09/21 09:00 Cancel Amiloride HCl (Midamor) 5 mg DAILY PO 02/10/21 09:00 02/12/21 08:14 Apixaban (Eliquis) 5 mg BID PO 02/08/21 21:00 02/12/21 08:15 Ascorbic Acid (Vitamin C) 500 mg DAILY PO 02/09/21 09:00 02/12/21 08:14 Bisacodyl (Dulcolax Suppository) 10 mg DAILYPRN PRN [place] CONSTIPATION 02/08/21 11:55 Cancel Dextrose (Dextrose 50%) 25 ml ASDIRECTED PRN IV SEE LABEL COMMENTS 02/08/21 11:55 Dicyclomine HCl (Bentyl) 10 mg Q6HP PRN PO abdominal pain 02/10/21 22:10 02/11/21 14:18 DC Dicyclomine HCl (Bentyl) 10 mg TID PO 02/11/21 16:00 02/12/21 08:15 Docusate Sodium (Colace) 100 mg BID PO 02/08/21 21:00 02/10/21 13:52 DC 02/09/21 07:45 Duloxetine HCl (Cymbalta) 20 mg DAILY PO 02/10/21 09:00 02/10/21 18:40 DC 02/10/21 08:26 Furosemide (Lasix) 60 mg DAILY PO 02/09/21 09:00 02/09/21 13:00 DC 02/09/21 07:48 Glucagon (Glucagon) 1 mg ASDIRECTED PRN SC SEE LABEL COMMENTS 02/08/21 11:55 Glucose (Glucose) 16 GM ASDIRECTED PRN PO SEE LABEL COMMENTS 02/08/21 11:55 Insulin Human Lispro (HumaLOG INSULIN) SEE PROTOCOL TABLE AC SC 02/08/21 17:30 02/09/21 12:16 Insulin Human Lispro (HumaLOG INSULIN) SEE PROTOCOL TABLE QHS SC 02/08/21 21:00 Lactobacillus Acidophilus (Bacid) 1 ea TID PO 02/12/21 16:00 UNV Levofloxacin (Levaquin) 250 mg DAILY@06 PO 02/12/21 09:35 UNV Lidocaine (Lidoderm Patch) 1 patch DAILY TD 02/09/21 14:20 02/12/21 08:15 Magnesium Oxide (Mag-Ox) 400 mg BID PO 02/10/21 09:00 02/10/21 17:52 DC 02/10/21 10:05 Magnesium Oxide (Mag-Ox) 400 mg BID PO 02/12/21 09:00 02/12/21 08:15 Magnesium Oxide (Mag-Ox) 400 mg DAILY PO 02/09/21 09:00 02/10/21 08:25 DC 02/09/21 07:45 Magnesium Sulfate/ Dextrose 1 gm/IV Miscellaneous Supplies 100 ml @ 100 mls/hr Q1H IV 02/11/21 11:00 02/11/21 12:59 DC 02/11/21 13:47 Metoprolol Tartrate (Lopressor) 50 mg Q8H PO 02/08/21 22:00 02/12/21 06:07 Non-Formulary Medication ( See Comment Field Below ) REMOVE LIDODERM PATCH DAILY@21 XX 02/09/21 21:00 02/11/21 20:39 Pancrelipase (Creon-24) 2 ea WM PO 02/08/21 18:00 02/12/21 08:14 Pantoprazole Sodium (Protonix) 40 mg BID PO 02/08/21 21:00 02/12/21 08:14 Polyethylene Glycol (Miralax) 1 pkt DAILY PRN PO CONSTIPATION 02/08/21 11:55 02/10/21 13:52 DC 02/09/21 07:43 Potassium Chloride (Micro-K Extencaps) 10 meq DAILY PO 02/09/21 09:00 02/09/21 10:45 DC 02/09/21 07:47 Potassium Chloride (Micro-K Extencaps) 20 meq DAILY PO 02/10/21 09:00 Cancel Senna (Senokot) 1 tab QHS PO 02/08/21 21:00 02/10/21 13:52 DC 02/08/21 21:21 Simethicone (Mylicon) 80 mg TID PO 02/11/21 09:00 02/12/21 08:14 Sucralfate (Carafate) 1 gm ACHS PO 02/08/21 17:30 02/12/21 08:15 Tiotropium [place] (Spiriva Handihaler) 1 inhalation DAILY@08 INH 02/09/21 08:00 Torsemide (Demadex) 40 mg BID@,17 PO 02/09/21 14:00 02/10/21 13:53 DC 02/10/21 08:27 Torsemide (Demadex) 40 mg DAILY PO 02/11/21 09:00 02/12/21 08:14 Vitamin D (Vitamin D) 1,000 units DAILY PO 02/09/21 09:00 02/12/21 08:15 CHIRAG LARA MD February 12, 2021 09:37
[2021-02-12] MEDS ORDERED: POTASSIUM CHLORIDE 10 MEQ SR TABLET PO ONE (09:40)
[2021-02-12 09:47] LABS: MAGNESIUM LEVEL 1.8 MG/DL (1.8-2.4)
[2021-02-12] MEDS: LevoFLOXacin 250 MG TABLET PO SCH (10:08)
[2021-02-12] MEDS: LACTOBACILLUS ACIDOPHILUS CAP (BACID) PO SCH ×2 (12:02→17:28)
[2021-02-12 13:27] VITALS: BP 132/68
[2021-02-12] MEDS: PERCOCET 5MG/325MG TAB PO PRN (14:00)
--- NOTE | 2021-02-12 16:26 | IPN ---
PROGRESS NOTE DATE: 02/12/2021 SUBJECTIVE: The patient is seen and examined this morning at the bedside. Every morning she complains to me of pain and every morning she requests to be put back on her oxycodone. Today, she tells me that her abdominal cramping is intolerable "either kill me or give me oxycodone." The patient otherwise denies any complaints, but appears quite depressed and tells me that life is not worth living. Nursing staff reports that she has been frustrated with her physical therapy. Her weights are down trending and her leg edema has significantly improved. OBJECTIVE: VITAL SIGNS: Temperature 98.9, pulse 78, respiratory rate 19, blood pressure 132/68, saturating 95% on 2 liters nasal cannula. There were 14 voids recorded yesterday. Weight on the bed scale today is 77.6 kg, which is about 3 kg lower than yesterday. GENERAL: The patient is seen awake, alert, and sitting in a chair belted in. Elderly female. HEENT: Extraocular muscles are intact. Tongue is moist. NECK: Supple. Jugular veins are not elevated while she is sitting upright. HEART: Sounds are irregular. S1, S2. There is 1+ edema that only comes up to the mid martinez now, it is much improved over the past couple of days. LUNGS: Show improved air entry bilaterally without crackle or rale. She is comfortable on her usual amount of home oxygen. ABDOMEN: Soft and mildly tender to palpation in the epigastrium. EXTREMITIES: Negative for clubbing or cyanosis. As mentioned above, there is 1+ pitting edema that only comes up to the mid martinez. NEUROLOGIC: She is oriented x3, interactive, and conversational. PSYCHIATRIC: She appears depressed. She requests her opioid pain medication frequently. LABORATORY DATA: White count 9.8, hemoglobin 11.2, platelets 214,000. Sodium 138, potassium 3.4, bicarbonate 39, BUN 20, creatinine 1.2, magnesium 1.8. Urine culture Klebsiella. INPATIENT MEDICATIONS: I am holding her torsemide. I note primary team started her on Tylenol p.r.n. and Bacid with meal, levothyroxine 250 mg p.o. daily, Percocet p.r.n., potassium chloride 40 mEq p.o. x1 was given. PROBLEMS: 1. Diastolic congestive heart failure (diastolic dysfunction versus Cor pulmonale). The patient's volume status has significantly improved. Her leg edema is a lot better. Her weights are down 3 kg. She is complaining of abdominal cramping. I am going to hold her torsemide for a day and see how she does. Her urine is not being quantified so we will rely on daily weights. 2. Chronic metabolic alkalosis secondary to respiratory acidosis/chronic obstructive pulmonary disease (COPD). On prior labs, her bicarbonate fluctuates between 40 to 50. 3. Hypokalemia. She is on amiloride for its potassium-sparring and metabolic alkalosis ameliorating affects. She also received oral potassium supplementation. 4. Hypomagnesemia. Magnesium level is much improved after two runs of IV magnesium yesterday. 5. Bilateral pleural effusions. I suspect that they are improved. Her respiratory exam showed more clear air entry at the bases and her daily weights have down trended with diuresis. 6. Chronic kidney disease (CKD) stage II/CKD stage IIIA. Creatinine has slowly crept up with diuresis and I am going to hold torsemide for one day.
[2021-02-12 20:15] VITALS: BP 117/59
[2021-02-12] MEDS: **NOTE PATIENT COMMENT** MISC XX SCH (21:58)
[2021-02-13] MEDS: COMBIVENT RESPIMAT 100-20MCG INHALER 4GM INH SCH ×4 (02:08→20:26)
[2021-02-13 05:47] VITALS: BP 113/65
[2021-02-13] MEDS: LevoFLOXacin 250 MG TABLET PO SCH (06:07)
[2021-02-13] MEDS: METOPROLOL TART 50 MG TAB PO SCH ×3 (06:08→21:19)
[2021-02-13] MEDS: ACETAMINOPHEN TAB 650MG DOSE (2X325MG) PO PRN ×2 (06:55→15:24)
--- NOTE | 2021-02-13 07:01 | REPVR ---
PROCEDURE INFORMATION: Exam: US Abdomen, Limited; Right Upper Quadrant Exam date and time: 02/13/2021 6:34 AM Age: 75 years old Clinical indication: Abdominal pain; Epigastric; Additional info: Abdominal pain, HX of dilated cbd TECHNIQUE: Imaging protocol: US abdomen. Real time ultrasound with image documentation. Limited exam focused on the right upper quadrant. COMPARISON: GALLBLADDER US 11/11/2020 9:12 AM FINDINGS: Liver: No masses. Gallbladder: Two small mobile echogenic areas seen layering in the gallbladder without posterior shadowing possibly cholesterol stones or sludge. No calcified gallstones seen. There is no gallbladder wall thickening or pericholecystic fluid. Common bile duct: The CBD measures around 7 mm in diameter. Pancreas: The pancreatic head is unremarkable. The body and tail of the pancreas are obscured by bowel gas. Right kidney: The right kidney measures 10.9 x 4.3 x 3.5 cm. There is no right renal mass, stone, cyst or hydronephrosis. IMPRESSION: 1. Noncalcified 2 small cholesterol stones vs sludge with no sonographic evidence of acute cholecystitis. 2. Dilated CBD at 7 mm which could be physiologic in a patient of this stated age. Comparison to old studies if available would be helpful. Correlation with LFTs and bilirubin level is suggested. If further evaluation is warranted, MRCP may be considered for further evaluation. Electronically signed by: Brock Negro On 02/13/2021 07:01:03 AM
[2021-02-13] MEDS: TIOTROPIUM INHALER/CAPSULE (SPIRIVA) INH SCH (08:00)
[2021-02-13] MEDS: PERCOCET 5MG/325MG TAB PO PRN (08:50)
[2021-02-13] MEDS: ASCORBIC ACID 500 MG TAB PO SCH (08:51)
[2021-02-13] MEDS: PANTOPRAZOLE 40MG TAB (PROTONIX) PO SCH ×2 (08:51→21:18)
[2021-02-13] MEDS: CREON-24 CAPSULE PO SCH ×3 (08:51→17:34)
[2021-02-13] MEDS: DICYCLOMINE 10 MG CAP PO SCH ×3 (08:51→21:18)
[2021-02-13] MEDS: SUCRALFATE 1 GM TAB PO SCH ×4 (08:51→21:18)
[2021-02-13] MEDS: LIDOCAINE 5% (LIDODERM) PATCH TD SCH (08:52)
[2021-02-13] MEDS: VITAMIN D 1,000 INTERNATIONAL UNITS TABLET PO SCH (08:52)
[2021-02-13] MEDS: APIXABAN 5 MG TAB (ELIQUIS) PO SCH ×2 (08:52→21:18)
[2021-02-13] MEDS: POTASSIUM CHLORIDE 10 MEQ SR TABLET PO SCH (08:52)
[2021-02-13] MEDS: SIMETHICONE 80MG CHEW TAB PO SCH ×3 (08:52→21:19)
[2021-02-13] MEDS: LACTOBACILLUS ACIDOPHILUS CAP (BACID) PO SCH ×3 (08:52→17:34)
[2021-02-13] MEDS ORDERED: TORSEMIDE 20 MG TAB PO SCH (09:00)
[2021-02-13] MEDS ORDERED: MAGNESIUM GLUCONATE 500 MG TAB PO SCH (09:00)
[2021-02-13 13:15] LABS: HEMATOCRIT 37.6 % (36.0-47.0); HEMOGLOBIN 11.8 g/dl (12.0-15.5); MEAN CORPUSCULAR HEMOGLOBIN 31.3 pg (27.0-33.0); MEAN CORPUSCULAR HGB CONC 31.4 g/dl (32.0-36.5); MEAN CORPUSCULAR VOLUME 99.7 fl (80.0-96.0); PLATELET COUNT, AUTOMATED 237 10^3/uL (150-450); RED BLOOD COUNT 3.77 10^6/uL (4.00-5.40); WHITE BLOOD COUNT 9.7 10^3/uL (4.0-10.0)
[2021-02-13 13:43] LABS: CALCIUM LEVEL 9.1 MG/DL (8.8-10.2); CREATININE FOR GFR 1.46 MG/DL (0.55-1.30); MAGNESIUM LEVEL 1.3 MG/DL (1.8-2.4); PHOSPHORUS LEVEL 3.3 MG/DL (2.5-4.9); POTASSIUM SERUM 3.9 MEQ/L (3.5-5.1)
[2021-02-13 14:00] VITALS: BP 105/57
--- NOTE | 2021-02-13 14:02 | IPNPDOC ---
Text Note Date of Service The patient was seen on 02/13/21. NOTE Subjective: Patient complains of diffuse abdominal pain 7 out of 10. She denies fever or chills. No nausea or vomiting. Patient reported multiple bowel movements with liquid stool Objective: GENERAL APPEARANCE: In moderate distress HEENT: no scleral icterus, plus JVD, EOMI CARDIOVASCULAR: Irregular irregular LUNGS: Diminished lung sounds ABDOMEN: soft & moderately tender w palpitation, diabetes MUSCULOSKELETAL: no cyanosis, +1 swelling of lower extremities bilaterally INTEGUMENT: no generalized pallor NEUROLOGICAL: cranial nerve function from 2-12 intact intact, follows commands, speech not dysarthric Assessment and plan Patient 75 years old female with past history of COPD, obstructive sleep apnea, type 2 diabetes, atrial fibrillation who is currently in the acute rehabilitation unit receives treatment for deconditioning Abdominal pain/diarrhea Unknown etiology for now Abdomen was nondistended and soft on palpation Ultrasound was done and showed Dilated CBD at 7 mm which could be physiologic in a patient of this stated age. Noncalcified 2 small cholesterol stones vs sludge with no sonographic evidence of acute cholecystitis Will proceed with CT abdomen/pelvis Will check stool for C. difficile Diastolic CHF Continue diuresis I's and O's Cardiac diet Fluid restriction to 1500 mL Hypomagnesemia Replaced TARA Most likely secondary to intensive diuresis Continue to monitor Torsemide was on hold Atrial fibrillation Rate controlled Continue this Type 2 diabetes Insulin sliding scale Chronic respiratory failure Continue inhalers with supplemental oxygen VS,Fishbone, I+O VS, Fishbone, I+O Laboratory Tests 02/13/21 12:58 Vital Signs Date Time Temp Pulse Resp B/P (MAP) Pulse Ox O2 Delivery O2 Flow Rate FiO2 02/13/21 09:20 18 Nasal Cannula 2.0 02/13/21 06:08 80 113/65 02/13/21 05:47 97.5 93 I&O- Last 24 Hours up to 6 AM 02/13/21 06:00 Intake Total 770 ml Balance 770 ml DARRYL RAMIREZ DO February 13, 2021 14:02
[2021-02-13] MEDS: MAGNESIUM OXIDE 400MG TAB (MAG-OX) PO SCH ×2 (15:23→21:19)
--- NOTE | 2021-02-13 16:34 | REP ---
INDICATION: abdominal pain COMPARISON: None TECHNIQUE: Axial noncontrast images from the lung bases to the pubic symphysis with coronal and sagittal reformations. This CT examination was performed using the following dose reduction techniques: Automated exposure control, adjustment of mA and/or kv according to the patient's size, and use of iterative reconstruction technique. FINDINGS: Lung bases demonstrate small right and moderate left pleural effusions along with associated right basilar atelectasis and partial collapse to the left lower lobe. Findings are relatively similar to chest CT dated 02/01/2021 Liver demonstrates calcifications along the periphery of the right lobe which may be related to prior instrumentation or biopsy. 6.5 cm right adrenal myelolipoma again noted. Spleen, pancreas, gallbladder, right adrenal glands and kidneys are normal. There is no evidence for biliary ductal dilatation based on current CT. The enteric system is without obstruction or acute inflammatory process. Normal terminal ileum and cecum identified in the right lower quadrant. Colonic and sigmoid diverticulosis noted without acute diverticulitis. Pelvis demonstrates normal bladder and age-appropriate uterus/adnexa. No ascites. No free air. No adenopathy. No focal inflammatory stranding. Abdominal aorta without aneurysm. Musculoskeletal structures are intact and without acute osseous abnormality. IMPRESSION: 1. Bilateral pleural effusions and atelectasis/left lower lobe consolidation similar to prior examination. 2. Stable right adrenal myelolipoma. 3. Further nonacute chronic findings as described above. 4. No acute abdominopelvic pathology appreciated. <Electronically signed by Baltazar Palmer > 02/13/21 0717
[2021-02-13] MEDS ORDERED: MAG SULF 1GM/100ML (MAG RUN) 1 GM in IV 1 EA IV ONE (18:00)
--- NOTE | 2021-02-13 19:39 | CR ---
CONSULTATION DATE: 02/13/2021 REQUESTING PHYSICIAN: Sherron Zavala MD REASON FOR CONSULTATION: Chronic abdominal pain, diarrhea. HISTORY OF PRESENT ILLNESS: This is a 75-year-old female with recurrent admissions to the hospital with CHF exacerbation, cor pulmonale, hypoxia and COPD. She also has a history of chronic abdominal and fecal urgency that she relates as having been present for several years. She has chronic pain and arthritic complaints for which she takes Valium and chronic narcotic medications. For the past several months or even years, she is complaining of persistent lower abdominal pain, spasms along with stool frequency. She tells me her stools are pencil thin at times but are formed. She goes up to 3-5 times to move her bowels in a day and usually requires her to go immediately as she has a sensation of urgency. Once in the bathroom, she has to force her stools for several minutes before she can produce a small, typically formed bowel movement. Her lower abdominal discomfort tends to improve after moving a small bowel. She denies any blood in her stool. She denies any watery stool or diarrhea episodes. She is aware that her oxycodone sometimes gives her constipation for which she does take Milk of Magnesia on occasion. The patient tells me she had a colonoscopy in 2016 at an outside institution where the colonoscopy was done for the same complaints and was reportedly normal. She was told that they had to use a pediatric colonoscope rather than the adult scope to proceed with her procedure due to her colon being tortuous. PAST SURGICAL HISTORY: 1. Appendectomy. 2. Umbilical hernia repair. 3. Ankle fracture repair. 4. Colonoscopy in 2016. PAST MEDICAL HISTORY: 1. CHF. 2. Cor pulmonale. 3. Hypoxemia on oxygen. 4. Bilateral pleural effusions. 5. Osteoarthritis. 6. Chronic back pain. 7. Diabetes mellitus. 8. Anxiety. PHYSICAL EXAMINATION: VITAL SIGNS: Temperature 97.2, pulse 75, respiratory rate 18, blood pressure 105/57, pulse ox 94% on two liters nasal cannula. HEAD, EYES, EARS, NOSE AND THROAT: Grossly without abnormality. NECK: Negative for lymphadenopathy. CHEST: Coarse distant breath sounds, no wheezes or rhonchi. HEART: Regular rate and rhythm. S1, S2. ABDOMEN: Soft, positive bowel sounds. Tender to palpation in her suprapubic area and periumbilical area. There is no rebound tenderness or other peritoneal signs. I do not palpate any spleen. the liver is noirmal. There is no ascites. RECTAL: Reveals no masses, no fecal impaction, empty vault. LAB WORK: Including liver enzymes, CBC, CMP and radiologic studies including ultrasounds and CT scans for the past ten years have been reviewed in [facility]. IMPRESSION: 1. Chronic abdominal pain/fecal urgency. 2. Abnormal x-ray/prominent common bile duct with normal liver enzymes. 3. Indirect hyperbilirubinemia, intermittent with otherwise normal liver enzymes/alkaline phosphatase, likely related to elevated central venous pressures/hepatic congestion DISCUSSION: This is a patient with chronic idiopathic abdominal pain and fecal urgency. Her abdominal pain is in the lower abdomen and suprapubic and is not consistent with any biliary type symptoms. Her rectal exam does not show impaction/obstruction. I suspect her abdominal pain and fecal urgency may well be related to Irritable bowel syndrome as previous colonoscopy, previous CT and previous ultrasounds did not show any significant cause. Her chronic narcotic use for her arthritic complaints does confuse the picture and narcotic gut may be at play as well. Hypoxemia,elevated central venous pressures with passive congestion may also contribute. RECOMMEND: 1. I would try her on amitriptyline 10 mg q.h.s. which is a very small dose and hopefully she will tolerate this. We will have to monitor her mental status for the first few days on this medication. If confusion or encephalopathy occurs, then we will have to stop this. 2. Avoid narcotic medications. 3. Would discontinue dicyclomine as this appears to be ineffective. 4. For now, would stop Creon as she does not have any liquid or loose stools. She actually has small formed stools multiple times a day. 5. Her prominent common bile duct with otherwise normal liver enzymes, I believe, is incidental. However, it is not unreasonable to check MRCP to confirm benign biliary ductal ectasis. 6. Will need to locate her previous colonoscopy report, to confirm recency and findings as related by patient. A repeat colon evaluation needs to be considered. (Due to significant cardiac morbidity, would do this via BE or Virtual/CT Colonography rather than sedated procedure) [facility]ITAL[facility]
[2021-02-13 20:15] VITALS: BP 110/56
[2021-02-13] MEDS: AMITRIPTYLINE 10MG TABLET PO SCH (21:19)
[2021-02-13] MEDS: **NOTE PATIENT COMMENT** MISC XX SCH (21:19)
--- NOTE | 2021-02-13 21:19 | IPN ---
PROGRESS NOTE DATE: 02/13/2021 SUBJECTIVE: Ms. Pollard is seen this morning on her bedside. She has complaint of abdominal pain and pain in her legs, arms and back. She is currently using a heating pad on her right thigh. She denies any nausea or vomiting. PHYSICAL EXAMINATION: VITALS: Temperature 97.2 degrees Fahrenheit, heart rate 80 per minute, respiratory rate 18 per minute, blood pressure 113/65 mmHg, oxygen saturation 94% on 2 liters oxygen. HEENT: Head is atraumatic. Neck is supple and JVD difficult to be assessed. LUNGS: Diminished breath sounds at the bases. HEART: Sounds are regular. ABDOMEN: Soft and quite tender in her right upper quadrant and epigastric area. Bowel sounds are normal. EXTREMITIES: Without any cyanosis or clubbing. NEUROLOGIC: She has no focal deficit. LABORATORY STUDIES: Patient did not have any labs done this morning. I ordered labs and they have already come back; sodium 137 and potassium 3.9, CO2 38, BUN 20, creatinine is up to 1.46. Calcium 9.1 and magnesium 1.3. WBC count 9.7, hemoglobin 11.8, hematocrit 37.6, platelets 237,000. PROBLEMS: 1. Acute kidney injury superimposed on chronic kidney disease: Kidney function did get worse compared to yesterday. She was started on diuretic and intake and output are not recorded correctly. Her weight is down by about [address] scan of chest did show pleural effusions. So I will leave her on the diuretic for now. I will recheck her renal profile tomorrow. 2. Abdominal pain and tenderness: CAT scan of abdomen and pelvis without I.V. contrast is being ordered to rule out any possibility of colitis. She is quite tender in her upper abdomen. She did have a gallbladder ultrasound, which did not show any evidence for acute cholecystitis. 3. Congestive heart failure: Volume status probably only slightly decompensated. I will watch her for the next 24 hours and reconsider the diuretic. 4. Hypomagnesemia: Magnesium level is low once again and I am going to give her one dose of intravenous magnesium sulfate 1 gram today. 5. Hypokalemia: Potassium level has corrected and she remains on oral potassium chloride 20 mEq daily. Electrolytes will be checked again tomorrow.
[2021-02-14] MEDS: COMBIVENT RESPIMAT 100-20MCG INHALER 4GM INH SCH ×4 (01:05→19:56)
[2021-02-14] MEDS: METOPROLOL TART 50 MG TAB PO SCH ×3 (05:52→21:30)
[2021-02-14] MEDS: LevoFLOXacin 250 MG TABLET PO SCH (05:52)
[2021-02-14 05:55] VITALS: BP 129/76
[2021-02-14 07:00] LABS: ALBUMIN 2.7 GM/DL (3.2-5.2); CALCIUM LEVEL 8.3 MG/DL (8.8-10.2); CREATININE FOR GFR 1.26 MG/DL (0.55-1.30); GLOMERULAR FILTRATION RATE 43.8 (>39); PHOSPHORUS LEVEL 2.8 MG/DL (2.5-4.9); POTASSIUM SERUM 3.8 MEQ/L (3.5-5.1)
[2021-02-14] MEDS: TIOTROPIUM INHALER/CAPSULE (SPIRIVA) INH SCH (08:00)
[2021-02-14] MEDS: LIDOCAINE 5% (LIDODERM) PATCH TD SCH (08:35)
[2021-02-14] MEDS: SUCRALFATE 1 GM TAB PO SCH ×4 (08:36→21:31)
[2021-02-14] MEDS: SIMETHICONE 80MG CHEW TAB PO SCH ×4 (08:36→21:30)
[2021-02-14] MEDS: POTASSIUM CHLORIDE 10 MEQ SR TABLET PO SCH (08:36)
[2021-02-14] MEDS: DICYCLOMINE 10 MG CAP PO SCH ×3 (08:36→21:30)
[2021-02-14] MEDS: APIXABAN 5 MG TAB (ELIQUIS) PO SCH ×2 (08:36→21:31)
[2021-02-14] MEDS: PANTOPRAZOLE 40MG TAB (PROTONIX) PO SCH ×2 (08:36→21:30)
[2021-02-14] MEDS: MAGNESIUM OXIDE 400MG TAB (MAG-OX) PO SCH ×2 (08:36→21:30)
[2021-02-14] MEDS: LACTOBACILLUS ACIDOPHILUS CAP (BACID) PO SCH ×3 (08:36→17:08)
[2021-02-14] MEDS: ASCORBIC ACID 500 MG TAB PO SCH (08:36)
[2021-02-14] MEDS: VITAMIN D 1,000 INTERNATIONAL UNITS TABLET PO SCH (08:36)
[2021-02-14] MEDS: PERCOCET 5MG/325MG TAB PO PRN ×2 (09:05→17:04)
[2021-02-14] MEDS ORDERED: FUROSEMIDE 40 MG TAB PO ONE (12:30)
--- NOTE | 2021-02-14 13:29 | IPN ---
NEPHROLOGY PROGRESS NOTE DATE: 02/14/2021 SUBJECTIVE: Ms. Pollard is seen this morning on her bedside. She continues to have generalized pains and aches. She is using a heating pad, as usual. She reports improved dyspnea; however, she is still requiring 2 liters of oxygen. She has no fever or chills. PHYSICAL EXAMINATION: Temperature 97 degrees Fahrenheit, heart rate 72 per minute, respiratory rate 18 per minute, blood pressure 129/75 mmHg, oxygen saturation 96% 2 liters oxygen. HEAD: Atraumatic. NECK: Supple and jugular venous distention (JVD) difficult to be assessed. HEART SOUNDS: Regular. LUNGS: Diminished breath sounds at bases. ABDOMEN: Tender in upper quadrant and epigastric area. Bowel sounds are present. EXTREMITIES: Without any cyanosis or clubbing. She does not have any peripheral edema. LABORATORY REVIEW: Today's labs show a sodium 139, potassium 3.8, CO2 36, BUN 16, creatinine 1.26, calcium level 8.3, phosphorus 2.8. PROBLEMS: 1. Acute kidney injury superimposed on chronic kidney disease. Kidney function improved compared with yesterday. At this point, we will continue to monitor on a daily basis and renal profile will be checked again tomorrow. 2. Hypomagnesemia. Patient was given magnesium supplement yesterday and we will check her magnesium level again tomorrow. 3. Generalize pains and aches. Most likely a chronic issue and she is receiving pain medication. 4. Abdominal pain. CT scan of abdomen and pelvis was done yesterday, which did not show any acute abnormality. Most likely, pain is in the abdominal wall and not intraabdominal. She is using a heating pad. 5. Bilateral pleural effusions and hypoxemia. Patient remains on no standing diuretic at present and I am going to give her one dose of furosemide 40 mg today. We will see how she does. I will use diuretic as needed for now.
[2021-02-14 14:00] VITALS: BP 100/58
[2021-02-14] MEDS: ACETAMINOPHEN TAB 650MG DOSE (2X325MG) PO PRN (15:03)
[2021-02-14 20:00] VITALS: BP 152/57
[2021-02-14] MEDS: AMITRIPTYLINE 10MG TABLET PO SCH (21:30)
[2021-02-14] MEDS: **NOTE PATIENT COMMENT** MISC XX SCH (21:31)
[2021-02-15] MEDS: COMBIVENT RESPIMAT 100-20MCG INHALER 4GM INH SCH ×4 (01:35→21:58)
[2021-02-15 05:36] VITALS: BP 107/51
[2021-02-15 05:59] VITALS: BP 120/82
[2021-02-15] MEDS: METOPROLOL TART 50 MG TAB PO SCH ×3 (05:59→21:20)
[2021-02-15] MEDS: TIOTROPIUM INHALER/CAPSULE (SPIRIVA) INH SCH ×2 (07:26→07:28)
[2021-02-15 07:38] LABS: HEMOGLOBIN 11.4 g/dl (12.0-15.5); MEAN CORPUSCULAR HEMOGLOBIN 31.9 pg (27.0-33.0); MEAN CORPUSCULAR HGB CONC 31.7 g/dl (32.0-36.5); MEAN CORPUSCULAR VOLUME 100.8 fl (80.0-96.0); PLATELET COUNT, AUTOMATED 216 10^3/uL (150-450); RED BLOOD COUNT 3.57 10^6/uL (4.00-5.40)
[2021-02-15 08:10] LABS: ALBUMIN 2.6 GM/DL (3.2-5.2); CALCIUM LEVEL 8.9 MG/DL (8.8-10.2); CREATININE FOR GFR 1.07 MG/DL (0.55-1.30); GLOMERULAR FILTRATION RATE 52.9 (>39); MAGNESIUM LEVEL 1.9 MG/DL (1.8-2.4); PHOSPHORUS LEVEL 3.1 MG/DL (2.5-4.9); POTASSIUM SERUM 3.8 MEQ/L (3.5-5.1)
[2021-02-15] MEDS: SIMETHICONE 80MG CHEW TAB PO SCH ×3 (08:18→21:19)
[2021-02-15] MEDS: MAGNESIUM OXIDE 400MG TAB (MAG-OX) PO SCH ×2 (08:18→21:19)
[2021-02-15] MEDS: DICYCLOMINE 10 MG CAP PO SCH ×3 (08:18→21:19)
[2021-02-15] MEDS: PANTOPRAZOLE 40MG TAB (PROTONIX) PO SCH ×2 (08:18→21:19)
[2021-02-15] MEDS: APIXABAN 5 MG TAB (ELIQUIS) PO SCH ×2 (08:18→21:19)
[2021-02-15] MEDS: SUCRALFATE 1 GM TAB PO SCH ×4 (08:18→21:19)
[2021-02-15] MEDS: PERCOCET 5MG/325MG TAB PO PRN ×2 (08:18→18:40)
[2021-02-15] MEDS: LIDOCAINE 5% (LIDODERM) PATCH TD SCH (08:19)
[2021-02-15] MEDS: LACTOBACILLUS ACIDOPHILUS CAP (BACID) PO SCH ×3 (08:19→17:03)
[2021-02-15] MEDS: ASCORBIC ACID 500 MG TAB PO SCH (08:19)
[2021-02-15] MEDS: VITAMIN D 1,000 INTERNATIONAL UNITS TABLET PO SCH (08:19)
[2021-02-15] MEDS: POTASSIUM CHLORIDE 10 MEQ SR TABLET PO SCH (08:19)
[2021-02-15 14:00] VITALS: BP 112/76
--- NOTE | 2021-02-15 16:44 | IPN ---
NEPHROLOGY PROGRESS NOTE DATE: 02/15/2021 SUBJECTIVE: Ms. Pollard is seen this morning on her bedside. She reports generalized aches and pain. She does not sleep well at night and reports that she is not receiving her Valium at present, which she has been taking every night since age 17. She reports significant anxiety and difficulty sleeping at night. She denies any dyspnea, chest pain, nausea or vomiting. PHYSICAL EXAMINATION: Temperature 97.8 degrees Fahrenheit, heart rate 78 per minute, respiratory rate 16 per minute, blood pressure 101/58 mmHg, oxygen saturation 98%. HEAD: Atraumatic. NECK: Supple and without jugular venous distention (JVD) or thyroid enlargement. HEART SOUNDS: Irregular in rhythm. LUNGS: Clear to auscultation. ABDOMEN: Soft and bowel sounds are present. EXTREMITIES: Without any cyanosis or clubbing. NEUROLOGIC: She is without a focal deficit. LABORATORY DATA: Today's labs show a WBC 9.0, hemoglobin 11.4, hematocrit 36.0, platelets 216. Sodium 140, potassium 3.8, BUN 13, creatinine 1.07, glucose 88, calcium 8.9, magnesium level 1.9. PROBLEMS: 1. Acute kidney injury superimposed on chronic kidney disease. Kidney function has improved back to normal range at baseline. She has been off diuretics for a few days. 2. Congestive heart failure. She does have history of chronic congestive heart failure, but seems clinically compensated at present. She is still requiring supplemental oxygen. I am going to resume her home dose of diuretic with furosemide 60 mg daily and will continue to watch her renal function and electrolytes closely. 3. Insomnia and generalized pains and aches. Patient reports she has been taking Valium 5 mg at bedtime daily since age 17. I am going to defer it to the acute rehabilitation service to see if she is a candidate for taking her Valium at night.
[2021-02-15] MEDS ORDERED: LORazepam 0.5 MG TAB PO PRN (17:45)
[2021-02-15 20:00] VITALS: BP 101/63
[2021-02-15] MEDS: **NOTE PATIENT COMMENT** MISC XX SCH (21:00)
[2021-02-15] MEDS: AMITRIPTYLINE 10MG TABLET PO SCH (21:19)
[2021-02-16] MEDS: COMBIVENT RESPIMAT 100-20MCG INHALER 4GM INH SCH ×4 (01:29→20:13)
[2021-02-16 06:00] VITALS: BP 116/61
[2021-02-16] MEDS: PERCOCET 5MG/325MG TAB PO PRN ×3 (06:52→22:38)
[2021-02-16] MEDS: METOPROLOL TART 50 MG TAB PO SCH ×3 (06:52→22:39)
[2021-02-16] MEDS: TIOTROPIUM INHALER/CAPSULE (SPIRIVA) INH SCH (07:44)
[2021-02-16] MEDS: DICYCLOMINE 10 MG CAP PO SCH ×3 (08:12→22:45)
[2021-02-16] MEDS: POTASSIUM CHLORIDE 10 MEQ SR TABLET PO SCH (08:12)
[2021-02-16] MEDS: SUCRALFATE 1 GM TAB PO SCH ×4 (08:12→22:40)
[2021-02-16] MEDS: LACTOBACILLUS ACIDOPHILUS CAP (BACID) PO SCH ×3 (08:12→17:02)
[2021-02-16] MEDS: APIXABAN 5 MG TAB (ELIQUIS) PO SCH ×2 (08:13→22:39)
[2021-02-16] MEDS: SIMETHICONE 80MG CHEW TAB PO SCH ×4 (08:13→22:40)
[2021-02-16] MEDS: ASCORBIC ACID 500 MG TAB PO SCH (08:13)
[2021-02-16] MEDS: PANTOPRAZOLE 40MG TAB (PROTONIX) PO SCH ×2 (08:13→22:39)
[2021-02-16] MEDS: VITAMIN D 1,000 INTERNATIONAL UNITS TABLET PO SCH (08:13)
[2021-02-16] MEDS: MAGNESIUM OXIDE 400MG TAB (MAG-OX) PO SCH ×2 (08:13→22:40)
[2021-02-16] MEDS: FUROSEMIDE 20 MG TAB PO SCH (08:14)
[2021-02-16] MEDS: LIDOCAINE 5% (LIDODERM) PATCH TD SCH (08:14)
--- NOTE | 2021-02-16 08:43 | IPNPDOC ---
PM&R Progress Note DATE OF SERVICE: Feb 16, 2021 [employer]ipe [employer] Progress Note Subjective: Patient reporting her abdomen feels much better today and she no longer has loose stools or burning with urination. She is requesting valium for her nerves, but was educated on the dangers of this medication given her recent encephalopathy and precarious respiratory condition. REVIEW OF SYSTEMS: The following is a completed review of systems and has been reviewed. Review of systems otherwise unremarkable. PAIN: Patient self reports chronic low back pain and left knee pain EYES: No recent vision changes EARS, NOSE, & THROAT: No throat pain, or dysphagia, or rhinorrhea CARDIOVASCULAR: Denies chest pain or palpitations PULMONARY: +shortness of breath with exertion (improving) GASTROINTESTINAL: denies diarrhea/constipation GENITOURINARY: denies dysuria MUSCULOSKELETAL: +generalized weakness NEUROLOGICAL: denies tremor, + paresthesias HEMATOLOGICAL: left knee/leg ecchymosis SKIN: denies rash PSYCHIATRIC: Unremarkable All other review of systems found to be negative. PHYSICAL EXAMINATION: VITAL SIGNS: Please see below. GENERAL: Pleasant and cooperative. No acute distress. HEENT: PERRL. Extraocular movements intact. Clear conjunctiva CARDIOVASCULAR: Regular rate and rhythm. No murmurs, rubs, or gallops LUNGS: Clear to auscultation bilaterally. No wheezes. No rhonchi ABDOMEN: non-distended, soft, non-tender, normal-active bowel sounds NEUROLOGICAL: Alert and oriented times three. Cranial nerves II through XII grossly intact. Sensation diminished to light touch in stocking/glove pattern EXTREMITIES: 5\\5 strength bilateral upper extremities. 4\\5 strength right lower extremity. 4/5 strength in left lower extremity. +bilat LE edema (improving) SKIN: left calve and knee with ecchymosis LABORATORY DATA: Please see below. IMAGING: Imaging documentation personally reviewed by record ASSESSMENT:75-year-old F with past medical history of Afib, CHF who presents status post CHF exacerbation PLAN: 1. REhab- PT/OT advance mobility and ADLs, strengthen/stretch/maintain ROM all 4 limbs- ambulating with RW 2. Cardiac- hx of Afib on eliquis and metoprolol -chronic diastolic CHF with recent acute exacerbation- c/u fluid restriction, daily weights, c/u diuretics per renal -medicine consulted to assist in overall management, will ask renal to follow along for fluid management given patient's multiple hospitalizations for CHF exacerbation 3. Resp- hx of COPD on home , c/u spiriva and combivent with recent hypercapnic encephalopathy in setting of CHF exacerbation plus opioid and benzo use requiring transfer off ARU to ICU on 02-01-21 - monitor for infection/worsening respiratory status -LEANNE not on CPAP -bilat pleural effusion s/p thoracentesis 01-21-21, c/u monitor for clinical decline- recent CT abd/pelvis showing moderate bilateral effusions, patient on diuretics, with stable respiratory exam and no signs of encephalopathy -pulm nodule- 7 mm noncalcified module noted in right upper lobe incidentally on imaging, unchanged from prior chest imaging in october 2020. Patient should f/u outpatient with PCP 4. GI- +common bilat duct dilatation seen on recent CT (01/13/21) stable from prior exams, per GI patient started on Creon for pancreatic insufficiency, however due to persistent abdominal pain on 02-13-21 with GB-US showing, "Nonc alcified 2 small cholesterol stones vs sludge with no sonographic evidence of acute cholecystitis...Dilated CBD at 7 mm which could be physiologic" requested GI consult, Dr. Helton recommending stop Creon and opioids, and started Amitriptyline for possible IBS vs narcotic gut (given patient's longstanding opioid use will c/u 1/2 tab percocet q8h prn to facilitate participation in therapy)- patient scheduled for MRCP today per GI recs, abdominal exam much better and patient denies anymore loose stools or abdominal pain - KUB 02/10/21 negative for obstruction, abdominal exam still better today -f/u GI on d/c 5. DVT ppx- on eliquis 6. Ortho- hx of multiple joint OA contributing to overall functional decline- c/u tylenol prn - swelling in left knee evaluated by ortho during patient's recent ICU stay- no concern for septic joint, swelling improved -left ankle pain work-up on recent ARU admission- no fracture, no pain complaints today 7. Endo- hx of DM- diet controlled with peripheral polyneuropathy contributing to overall functional decline 8. Breast mass - 1.4cm irregular mass noted in left breast incidentally on imaging. Patient should f/u outpatient with PCP for breast US or mammogram 9. Pain- avoiding valium due to recent metabolic encephalopathic hypercapnia, patient requesting half tab of Percocet for her joint pain, c/ul 1/2 tab percocet 5-325 q8h prn to be held for sedation/RR <12/AMS -d/c'd cymbalta as may have contributed to patient's abdominal sx -lidoderm patch to low back 10. Hypokalemia-c/u to replete prn -hypomagnesemia s/p IV, c/u oral Mg 11. - patient with dysuria- Ucx + for klebsiella PNA s/p levaquin 250mg x 3 days- dysuria resolves 12. Dispo- 02-20-21 to home, progressing towards goals Allergies Coded Allergies: adhesive tape (Verified Allergy, Mild, RASH, 01/13/21) latex (Verified Allergy, Mild, RASH, 01/13/21) azithromycin (Unverified Adverse Reaction, Mild, GI, 01/13/21) Listed under diet Vital Signs Vital Signs Date Time Temp Pulse Resp B/P (MAP) Pulse Ox O2 Delivery O2 Flow Rate FiO2 02/16/21 08:14 18 02/16/21 06:52 82 116/61 02/16/21 06:00 97.9 94 Nasal Cannula 2.0 Laboratory Data Labs 24H Laboratory Tests 2 02/15/21 16:36: Bedside Glucose (Misc Panel) 110 02/16/21 06:28: Bedside Glucose (Misc Panel) 79L Microbiology Microbiology 02/10/21 Urine Culture - Final, Complete Klebsiella Pneumoniae Current Medications Current Medications Current Medications Medications (Trade) Dose Ordered Sig/Kiran Route PRN Reason Start Time Stop Time Status Last Admin Dose Admin Acetaminophen (Tylenol Tab) 650 mg Q4HP PRN PO fever/MILD PAIN (PS 1-4) 02/08/21 11:55 02/12/21 13:46 DC 02/12/21 09:33 Acetaminophen (Tylenol Tab) 650 mg Q6HP PRN PO fever/MILD PAIN (PS 1-4) 02/12/21 21:00 02/14/21 15:03 Albuterol/ Ipratropium (Combivent Respimat 100-20mcg) 1 puff RQ6H INH 02/08/21 20:00 02/16/21 07:43 Amiloride HCl (Midamor) 5 mg DAILY PO 02/09/21 09:00 Cancel Amiloride HCl (Midamor) 5 mg DAILY PO 02/10/21 09:00 02/13/21 08:03 DC 02/12/21 08:14 Amitriptyline HCl (Elavil) 10 mg QHS PO 02/13/21 21:00 02/15/21 21:19 Apixaban (Eliquis) 5 mg BID PO 02/08/21 21:00 02/16/21 08:13 Ascorbic Acid (Vitamin C) 500 mg DAILY PO 02/09/21 09:00 02/16/21 08:13 Bisacodyl (Dulcolax Suppository) 10 mg DAILYPRN PRN [place] CONSTIPATION 02/08/21 11:55 Cancel Dextrose (Dextrose 50%) 25 ml ASDIRECTED PRN IV SEE LABEL COMMENTS 02/08/21 11:55 Dicyclomine HCl (Bentyl) 10 mg Q6HP PRN PO abdominal pain 02/10/21 22:10 02/11/21 14:18 DC Dicyclomine HCl (Bentyl) 10 mg TID PO 02/11/21 16:00 02/16/21 08:12 Docusate Sodium (Colace) 100 mg BID PO 02/08/21 21:00 02/10/21 13:52 DC 02/09/21 07:45 Duloxetine HCl (Cymbalta) 20 mg DAILY PO 02/10/21 09:00 02/10/21 18:40 DC 02/10/21 08:26 Furosemide (Lasix) 60 mg DAILY PO 02/09/21 09:00 02/09/21 13:00 DC 02/09/21 07:48 Furosemide (Lasix) 60 mg DAILY PO 02/16/21 09:00 02/16/21 08:14 Glucagon (Glucagon) 1 mg ASDIRECTED PRN SC SEE LABEL COMMENTS 02/08/21 11:55 Glucose (Glucose) 16 GM ASDIRECTED PRN PO SEE LABEL COMMENTS 02/08/21 11:55 Insulin Human Lispro (HumaLOG INSULIN) SEE PROTOCOL TABLE AC SC 02/08/21 17:30 02/12/21 13:46 DC 02/09/21 12:16 Insulin Human Lispro (HumaLOG INSULIN) SEE PROTOCOL TABLE QHS SC 02/08/21 21:00 02/12/21 13:46 DC Lactobacillus Acidophilus (Bacid) 1 ea WM PO 02/12/21 12:30 02/16/21 08:12 Levofloxacin (Levaquin) 250 mg DAILY@06 PO 02/12/21 09:45 02/14/21 06:01 DC 02/14/21 05:52 Lidocaine (Lidoderm Patch) 1 patch DAILY TD 02/09/21 14:20 02/16/21 08:14 Lorazepam (Ativan) 0.5 mg Q6HP PRN PO ANXIETY 02/15/21 17:45 02/15/21 17:49 Magnesium Gluconate (Magnesium Gluconate) 500 mg BID PO 02/13/21 09:00 Cancel Magnesium Oxide (Mag-Ox) 400 mg BID PO 02/10/21 09:00 02/10/21 17:52 DC 02/10/21 10:05 Magnesium Oxide (Mag-Ox) 400 mg BID PO 02/12/21 09:00 02/12/21 10:21 DC 02/12/21 08:15 Magnesium Oxide (Mag-Ox) 400 mg BID PO 02/13/21 09:00 02/16/21 08:13 Magnesium Oxide (Mag-Ox) 400 mg DAILY PO 02/09/21 09:00 02/10/21 08:25 DC 02/09/21 07:45 Magnesium Sulfate/ Dextrose 1 gm/IV Miscellaneous Supplies 100 ml @ 100 mls/hr Q1H IV 02/11/21 11:00 02/11/21 12:59 DC 02/11/21 13:47 Metoprolol Tartrate (Lopressor) 50 mg Q8H PO 02/08/21 22:00 02/16/21 06:52 Non-Formulary Medication ( See Comment Field Below ) REMOVE LIDODERM PATCH DAILY@21 XX 02/09/21 21:00 02/14/21 21:31 Oxycodone/ Acetaminophen (Percocet 5mg/ 325mg Tablet) 0.5 tab Q8HP PRN PO MODERATE PAIN (PS 5-7) 02/12/21 13:45 02/16/21 06:52 Pancrelipase (Creon-24) 2 ea WM PO 02/08/21 18:00 02/13/21 19:49 DC 02/13/21 17:34 Pantoprazole Sodium (Protonix) 40 mg BID PO 02/08/21 21:00 02/16/21 08:13 Polyethylene Glycol (Miralax) 1 pkt DAILY PRN PO CONSTIPATION 02/08/21 11:55 02/10/21 13:52 DC 02/09/21 07:43 Potassium Chloride (Micro-K Extencaps) 10 meq DAILY PO 02/09/21 09:00 02/09/21 10:45 DC 02/09/21 07:47 Potassium Chloride (Micro-K Extencaps) 20 meq DAILY PO 02/10/21 09:00 Cancel Potassium Chloride (Micro-K Extencaps) 20 meq DAILY PO 02/13/21 09:00 02/16/21 08:12 Senna (Senokot) 1 tab QHS PO 02/08/21 21:00 02/10/21 13:52 DC 02/08/21 21:21 Simethicone (Mylicon) 80 mg TID PO 02/11/21 09:00 02/16/21 08:13 Sucralfate (Carafate) 1 gm ACHS PO 02/08/21 17:30 02/16/21 08:12 Tiotropium [place] (Spiriva Handihaler) 1 inhalation DAILY@08 INH 02/09/21 08:00 02/14/21 08:00 Torsemide (Demadex) 20 mg DAILY PO 02/13/21 09:00 Cancel Torsemide (Demadex) 40 mg BID@09,17 PO 02/09/21 14:00 02/10/21 13:53 DC 02/10/21 08:27 Torsemide (Demadex) 40 mg DAILY PO 02/11/21 09:00 02/12/21 11:16 DC 02/12/21 08:14 Vitamin D (Vitamin D) 1,000 units DAILY PO 02/09/21 09:00 02/16/21 08:13 CHIRAG LARA MD Feb 16, 2021 08:42
[2021-02-16] MEDS ORDERED: hydrOXYzine 10 MG TAB PO PRN (13:35)
[2021-02-16 14:00] VITALS: BP 124/60
--- NOTE | 2021-02-16 17:31 | IPN ---
NEPHROLOGY PROGRESS NOTE DATE: 02/16/2021 SUBJECTIVE: Mrs. Pollard was seen this morning at her bedside. She is feeling well and denies any new complaints. She has no dyspnea or chest pain. She denies any nausea or vomiting. OBJECTIVE: PHYSICAL EXAMINATION: VITAL SIGNS: Temperature is 97.9 degrees Fahrenheit, heart rate 88 per minute and respiratory rate is 18 per minute. Blood pressure is 124/60 mm of mercury and oxygen saturation is 95% on 2 liters oxygen. HEENT: Head is atraumatic. NECK: Supple and without JVD or thyroid enlargement. HEART: Irregular in rhythm. LUNGS: Clear to auscultation. ABDOMEN: Soft and she is using a heating pad. EXTREMITIES: Without any cyanosis or clubbing. She has no peripheral edema. LABORATORY STUDIES: The patient did not have any new labs done today. Yesterday her BUN was 13 and creatinine 1.07. PROBLEMS: 1. Acute kidney injury superimposed on chronic kidney disease - kidney function has improved to almost baseline. Renal profile will be checked again tomorrow. 2. Congestive heart failure and hypoxemia she is back on her home dose of diuretics now with Furosemide 60 mg daily and seems well compensated. We will continue to monitor her electrolytes and renal function for the next few days. 3. Hypertension - blood pressure has been well controlled and she remains on Metoprolol. She is not on any toni inhibitors or angiotensin receptor damon.
[2021-02-16 20:00] VITALS: BP 129/63
[2021-02-16] MEDS: **NOTE PATIENT COMMENT** MISC XX SCH (21:00)
[2021-02-16] MEDS: AMITRIPTYLINE 10MG TABLET PO SCH (22:38)
[2021-02-16] MEDS: ACETAMINOPHEN TAB 650MG DOSE (2X325MG) PO PRN (22:39)
--- NOTE | 2021-02-16 23:41 | REPVR ---
PROCEDURE INFORMATION: Exam: MR Abdomen Without Contrast, MRCP Exam date and time: 02/16/2021 10:05 PM Age: 75 years old Clinical indication: Abdominal pain; Bile duct dilation TECHNIQUE: Imaging protocol: MR of the abdomen without contrast. Exam focused on the bile ducts and pancreatic ducts. 3D MRCP images were acquired and processed without radiologist supervision. COMPARISON: CT ABD PELVIS W/O CONTRAST 02/13/2021 2:48 PM FINDINGS: Limitations: Examination is limited by motion artifact. Examination is limited to T2 weighted images. Pleural spaces: Moderate bilateral pleural effusions. Liver: Limited evaluation. No lesions on T2 weighted images. Gallbladder and bile ducts: No gallbladder wall thickening. No filling defects in the stone gallbladder. CBD measures 10 mm in diameter. There is abrupt cut off of the distal CBD just proximal to the sphincter. Pancreas: Pancreas appears unremarkable on T2 weighted images. No ductal dilation. Pancreatic duct measures 2.5 mm in diameter. Adrenals: Fatty lesion the right adrenal gland measuring approximately 4.8 x 6.7 x 5.9 cm. Left adrenal gland is unremarkable. Kidneys and ureters: No hydronephrosis bilaterally. Scattered T2-hyperintense lesions in the left kidney measuring to 5 mm. Mild perinephric edema bilaterally. Intraperitoneal space: No fluid collection. Bones/joints: Degenerative changes of the spine. Severe spinal stenosis at L2-L3 and L3-L4. IMPRESSION: 1. Limited evaluation. 2. Dilated CBD. 3. There is abrupt cut off of the distal CBD just proximal to the sphincter. Distal CBD stone cannot be excluded. Other obstructing lesion cannot be excluded. 4. Gallbladder is unremarkable. 5. Fatty lesion the right adrenal gland. Consistent with large myelolipoma. Correlate with labs and and recommend surgical follow-up if clinically warranted. 6. Moderate bilateral pleural effusions. Unknown etiology. COMMENTS: Consistent with the [employer]'s Incidental Findings Committee white paper (J Am Aneta Radiol 2018): Any incidental renal lesion less than 1 cm or classified as too small to characterize, or any incidental cystic renal lesion characterized as simple-appearing, is likely benign. No follow-up imaging is recommended for these lesions per consensus recommendations based on imaging criteria. Electronically signed by: Melissa Willis On 02/16/2021 23:40:32 PM
[2021-02-17] MEDS: COMBIVENT RESPIMAT 100-20MCG INHALER 4GM INH SCH ×4 (02:00→19:49)
[2021-02-17] MEDS: METOPROLOL TART 50 MG TAB PO SCH ×3 (06:00→21:06)
[2021-02-17 06:20] VITALS: BP 101/58
[2021-02-17] MEDS: ACETAMINOPHEN TAB 650MG DOSE (2X325MG) PO PRN ×2 (06:22→14:22)
--- NOTE | 2021-02-17 07:16 | IPNPDOC ---
PM&R Progress Note DATE OF SERVICE: Feb 17, 2021 [employer] Progress Note Subjective: Patient stating her abdomen continues to feel better and that if the ERCP is absolutely necessary she would prefer to have it done inhouse. She is waiting to be seen by Dr. Hernandez to discuss further. REVIEW OF SYSTEMS: The following is a completed review of systems and has been reviewed. Review of systems otherwise unremarkable. PAIN: Patient self reports chronic low back pain and left knee pain EYES: No recent vision changes EARS, NOSE, & THROAT: No throat pain, or dysphagia, or rhinorrhea CARDIOVASCULAR: Denies chest pain or palpitations PULMONARY: +shortness of breath with exertion (improving) GASTROINTESTINAL: denies diarrhea/constipation GENITOURINARY: denies dysuria MUSCULOSKELETAL: +generalized weakness NEUROLOGICAL: denies tremor, + paresthesias HEMATOLOGICAL: left knee/leg ecchymosis SKIN: denies rash PSYCHIATRIC: Unremarkable All other review of systems found to be negative. PHYSICAL EXAMINATION: VITAL SIGNS: Please see below. GENERAL: Pleasant and cooperative. No acute distress. HEENT: PERRL. Extraocular movements intact. Clear conjunctiva CARDIOVASCULAR: Regular rate and rhythm. No murmurs, rubs, or gallops LUNGS: Clear to auscultation bilaterally. No wheezes. No rhonchi ABDOMEN: non-distended, soft, mildly tender in all 4l quadrant, normal-active bowel sounds NEUROLOGICAL: Alert and oriented times three. Cranial nerves II through XII grossly intact. Sensation diminished to light touch in stocking/glove pattern EXTREMITIES: 5\\5 strength bilateral upper extremities. 4\\5 strength right lower extremity. 4/5 strength in left lower extremity. +bilat LE edema (improving) SKIN: left calve and knee with ecchymosis LABORATORY DATA: Please see below. ASSESSMENT:75-year-old F with past medical history of Afib, CHF who presents status post CHF exacerbation PLAN: 1. REhab- PT/OT advance mobility and ADLs, strengthen/stretch/maintain ROM all 4 limbs- ambulating with RW 2. Cardiac- hx of Afib on eliquis and metoprolol -chronic diastolic CHF with recent acute exacerbation- c/u fluid restriction, daily weights, c/u diuretics per renal -medicine consulted to assist in overall management, renal following along for fluid management given patient's multiple hospitalizations for CHF exacerbation 3. Resp- hx of COPD on home 02, c/u spiriva and combivent with recent hypercapnic encephalopathy in setting of CHF exacerbation plus opioid and benzo use requiring transfer off ARU to ICU on 02-01-21 - monitor for infection/worsening respiratory status -LEANNE not on CPAP -bilat pleural effusion s/p thoracentesis 01-21-21, c/u monitor for clinical decline- recent CT abd/pelvis showing moderate bilateral effusions, patient on d iuretics, with stable respiratory exam and no signs of encephalopathy -pulm nodule- 7 mm noncalcified module noted in right upper lobe incidentally on imaging, unchanged from prior chest imaging in october 2020. Patient should f/u outpatient with PCP 4. GI- +common bilat duct dilatation seen on recent CT (01/13/21) stable from prior exams, per GI patient started on Creon for pancreatic insufficiency, however due to persistent abdominal pain on 02-13-21 with GB-US showing, " Noncalcified 2 small cholesterol stones vs sludge with no sonographic evidence of acute cholecystitis...Dilated CBD at 7 mm which could be physiologic" requested GI consult, Dr. Helton recommended stop Creon and opioids, and started Amitriptyline for possible IBS vs narcotic gut (given patient's longstanding opioid use will c/u 1/2 tab percocet q8h prn to facilitate p articipation in therapy)- patient's pain overall much better -MRCP 02-16-21 "Dilated CBD. 3. There is abrupt cut off of the distal CBD just proximal to the sphincter. Distal CBD stone cannot be excluded. Other obstructing lesion cannot be excluded." discussed with Dr. Helton who will see patient today and discuss possible need for ercp- patient abdominal exam c/u to be much better and patient denies anymore loose stools or abdominal pain - KUB 02/10/21 negative for obstruction, abdominal exam still better today -f/u GI on d/c 5. DVT ppx- on eliquis 6. Ortho- hx of multiple joint OA contributing to overall functional decline- c/u tylenol prn - swelling in left knee evaluated by ortho during patient's recent ICU stay- no concern for septic joint, swelling improved -left ankle pain work-up on recent ARU admission- no fracture, no pain complaints today 7. Endo- hx of DM- diet controlled with peripheral polyneuropathy contributing to overall functional decline 8. Breast mass - 1.4cm irregular mass noted in left breast incidentally on imaging. Patient should f/u outpatient with PCP for breast US or mammogram 9. Pain- avoiding valium due to recent metabolic encephalopathic hypercapnia, patient requesting half tab of Percocet for her joint pain, c/ul 1/2 tab percocet 5-325 q8h prn to be held for sedation/RR <12/AMS -d/c'd cymbalta as may have contributed to patient's abdominal sx -lidoderm patch to low back 10. Hypokalemia-c/u to replete prn -hypomagnesemia s/p IV, c/u oral Mg 11. - patient with dysuria- Ucx + for klebsiella PNA s/p levaquin 250mg x 3 days- dysuria resolves 12. Dispo- 02-20-21 to home, progressing towards goals Allergies Coded Allergies: adhesive tape (Verified Allergy, Mild, RASH, 01/13/21) latex (Verified Allergy, Mild, RASH, 01/13/21) azithromycin (Unverified Adverse Reaction, Mild, GI, 01/13/21) Listed under diet Vital Signs Vital Signs Date Time Temp Pulse Resp B/P (MAP) Pulse Ox O2 Delivery O2 Flow Rate FiO2 02/17/21 06:20 97.0 78 18 101/58 (72) 95 Nasal Cannula 2.0 Laboratory Data Labs 24H Laboratory Tests 2 02/16/21 16:26: Bedside Glucose (Misc Panel) 112H 02/17/21 06:24: Bedside Glucose (Misc Panel) 85 Microbiology Microbiology 02/10/21 Urine Culture - Final, Complete Klebsiella Pneumoniae Current Medications Current Medications Current Medications Medications (Trade) Dose Ordered Sig/Kiran Route PRN Reason Start Time Stop Time Status Last Admin Dose Admin Acetaminophen (Tylenol Tab) 650 mg Q4HP PRN PO fever/MILD PAIN (PS 1-4) 02/08/21 11:55 02/12/21 13:46 DC 02/12/21 09:33 Acetaminophen (Tylenol Tab) 650 mg Q6HP PRN PO fever/MILD PAIN (PS 1-4) 02/12/21 21:00 02/17/21 06:22 Albuterol/ Ipratropium (Combivent Respimat 100-20mcg) 1 puff RQ6H INH 02/08/21 20:00 02/16/21 20:13 Amiloride HCl (Midamor) 5 mg DAILY PO 02/09/21 09:00 Cancel Amiloride HCl (Midamor) 5 mg DAILY PO 02/10/21 09:00 02/13/21 08:03 DC 02/12/21 08:14 Amitriptyline HCl (Elavil) 10 mg QHS PO 02/13/21 21:00 02/16/21 22:38 Apixaban (Eliquis) 5 mg BID PO 02/08/21 21:00 02/16/21 22:39 Ascorbic Acid (Vitamin C) 500 mg DAILY PO 02/09/21 09:00 02/16/21 08:13 Bisacodyl (Dulcolax Suppository) 10 mg DAILYPRN PRN [place] CONSTIPATION 02/08/21 11:55 Cancel Dextrose (Dextrose 50%) 25 ml ASDIRECTED PRN IV SEE LABEL COMMENTS 02/08/21 11:55 Dicyclomine HCl (Bentyl) 10 mg Q6HP PRN PO abdominal pain 02/10/21 22:10 02/11/21 14:18 DC Dicyclomine HCl (Bentyl) 10 mg TID PO 02/11/21 16:00 02/16/21 22:45 Docusate Sodium (Colace) 100 mg BID PO 02/08/21 21:00 02/10/21 13:52 DC 02/09/21 07:45 Duloxetine HCl (Cymbalta) 20 mg DAILY PO 02/10/21 09:00 02/10/21 18:40 DC 02/10/21 08:26 Furosemide (Lasix) 60 mg DAILY PO 02/09/21 09:00 02/09/21 13:00 DC 02/09/21 07:48 Furosemide (Lasix) 60 mg DAILY PO 02/16/21 09:00 02/16/21 08:14 Glucagon (Glucagon) 1 mg ASDIRECTED PRN SC SEE LABEL COMMENTS 02/08/21 11:55 Glucose (Glucose) 16 GM ASDIRECTED PRN PO SEE LABEL COMMENTS 02/08/21 11:55 Hydroxyzine HCl (Atarax) 10 mg Q6HP PRN PO ANXIETY/AGITATION 02/16/21 13:35 02/16/21 22:39 Insulin Human Lispro (HumaLOG INSULIN) SEE PROTOCOL TABLE AC SC 02/08/21 17:30 02/12/21 13:46 DC 02/09/21 12:16 Insulin Human Lispro (HumaLOG INSULIN) SEE PROTOCOL TABLE QHS SC 02/08/21 21:00 02/12/21 13:46 DC Lactobacillus Acidophilus (Bacid) 1 ea WM PO 02/12/21 12:30 02/16/21 17:02 Levofloxacin (Levaquin) 250 mg DAILY@06 PO 02/12/21 09:45 02/14/21 06:01 DC 02/14/21 05:52 Lidocaine (Lidoderm Patch) 1 patch DAILY TD 02/09/21 14:20 02/16/21 08:14 Lorazepam (Ativan) 0.5 mg Q6HP PRN PO ANXIETY 02/15/21 17:45 02/16/21 13:32 DC 02/15/21 17:49 Magnesium Gluconate (Magnesium Gluconate) 500 mg BID PO 02/13/21 09:00 Cancel Magnesium Oxide (Mag-Ox) 400 mg BID PO 02/10/21 09:00 02/10/21 17:52 DC 02/10/21 10:05 Magnesium Oxide (Mag-Ox) 400 mg BID PO 02/12/21 09:00 02/12/21 10:21 DC 02/12/21 08:15 Magnesium Oxide (Mag-Ox) 400 mg BID PO 02/13/21 09:00 02/16/21 22:40 Magnesium Oxide (Mag-Ox) 400 mg DAILY PO 02/09/21 09:00 02/10/21 08:25 DC 02/09/21 07:45 Magnesium Sulfate/ Dextrose 1 gm/IV Miscellaneous Supplies 100 ml @ 100 mls/hr Q1H IV 02/11/21 11:00 02/11/21 12:59 DC 02/11/21 13:47 Metoprolol Tartrate (Lopressor) 50 mg Q8H PO 02/08/21 22:00 02/16/21 22:39 Non-Formulary Medication ( See Comment Field Below ) REMOVE LIDODERM PATCH DAILY@21 XX 02/09/21 21:00 02/16/21 21:00 Oxycodone/ Acetaminophen (Percocet 5mg/ 325mg Tablet) 0.5 tab Q8HP PRN PO MODERATE PAIN (PS 5-7) 02/12/21 13:45 02/16/21 22:38 Pancrelipase (Creon-24) 2 ea WM PO 02/08/21 18:00 02/13/21 19:49 DC 02/13/21 17:34 Pantoprazole Sodium (Protonix) 40 mg BID PO 02/08/21 21:00 02/16/21 22:39 Polyethylene Glycol (Miralax) 1 pkt DAILY PRN PO CONSTIPATION 02/08/21 11:55 02/10/21 13:52 DC 02/09/21 07:43 Potassium Chloride (Micro-K Extencaps) 10 meq DAILY PO 02/09/21 09:00 02/09/21 10:45 DC 02/09/21 07:47 Potassium Chloride (Micro-K Extencaps) 20 meq DAILY PO 02/10/21 09:00 Cancel Potassium Chloride (Micro-K Extencaps) 20 meq DAILY PO 02/13/21 09:00 02/16/21 08:12 Senna (Senokot) 1 tab QHS PO 02/08/21 21:00 02/10/21 13:52 DC 02/08/21 21:21 Simethicone (Mylicon) 80 mg TID PO 02/11/21 09:00 02/16/21 22:40 Sucralfate (Carafate) 1 gm ACHS PO 02/08/21 17:30 02/16/21 22:40 Tiotropium [place] (Spiriva Handihaler) 1 inhalation DAILY@08 INH 02/09/21 08:00 02/14/21 08:00 Torsemide (Demadex) 20 mg DAILY PO 02/13/21 09:00 Cancel Torsemide (Demadex) 40 mg BID@09,17 PO 02/09/21 14:00 02/10/21 13:53 DC 02/10/21 08:27 Torsemide (Demadex) 40 mg DAILY PO 02/11/21 09:00 02/12/21 11:16 DC 02/12/21 08:14 Vitamin D (Vitamin D) 1,000 units DAILY PO 02/09/21 09:00 02/16/21 08:13 CHIRAG LARA MD Feb 17, 2021 07:16
[2021-02-17 07:48] LABS: BASO # 0.1 10^3/uL (0.0-0.2); BASO % 0.6 % (0.0-1.0); EOS # 0.3 10^3/uL (0.0-0.5); EOS % 3.7 % (0.0-3.0); HEMATOCRIT 36.1 % (36.0-47.0); LYMPH # 1.3 10^3/uL (1.5-5.0); LYMPH % 14.8 % (24.0-44.0); MEAN CORPUSCULAR HEMOGLOBIN 31.3 pg (27.0-33.0); MEAN CORPUSCULAR HGB CONC 30.5 g/dl (32.0-36.5); MEAN CORPUSCULAR VOLUME 102.8 fl (80.0-96.0); MONO # 1.1 10^3/uL (0.0-0.8); MONO % 12.6 % (2.0-8.0); NEUTROPHILS # 5.9 10^3/uL (1.5-8.5); PLATELET COUNT, AUTOMATED 202 10^3/uL (150-450); RED BLOOD COUNT 3.51 10^6/uL (4.00-5.40); WHITE BLOOD COUNT 8.6 10^3/uL (4.0-10.0)
[2021-02-17] MEDS: TIOTROPIUM INHALER/CAPSULE (SPIRIVA) INH SCH (07:53)
[2021-02-17 08:05] LABS: CALCIUM LEVEL 8.9 MG/DL (8.8-10.2); CREATININE FOR GFR 1.11 MG/DL (0.55-1.30); GLOMERULAR FILTRATION RATE 50.7 (>39); POTASSIUM SERUM 3.8 MEQ/L (3.5-5.1)
[2021-02-17] MEDS: SIMETHICONE 80MG CHEW TAB PO SCH ×3 (09:00→21:00)
[2021-02-17] MEDS: LACTOBACILLUS ACIDOPHILUS CAP (BACID) PO SCH ×3 (09:42→18:09)
[2021-02-17] MEDS: LIDOCAINE 5% (LIDODERM) PATCH TD SCH (09:42)
[2021-02-17] MEDS: VITAMIN D 1,000 INTERNATIONAL UNITS TABLET PO SCH (09:43)
[2021-02-17] MEDS: POTASSIUM CHLORIDE 10 MEQ SR TABLET PO SCH (09:43)
[2021-02-17] MEDS: ASCORBIC ACID 500 MG TAB PO SCH (09:43)
[2021-02-17] MEDS: SUCRALFATE 1 GM TAB PO SCH ×4 (09:43→21:06)
[2021-02-17] MEDS: FUROSEMIDE 20 MG TAB PO SCH (09:44)
[2021-02-17] MEDS: PANTOPRAZOLE 40MG TAB (PROTONIX) PO SCH ×2 (09:44→21:06)
[2021-02-17] MEDS: APIXABAN 5 MG TAB (ELIQUIS) PO SCH ×2 (09:44→21:06)
[2021-02-17] MEDS: MAGNESIUM OXIDE 400MG TAB (MAG-OX) PO SCH ×2 (09:44→21:06)
[2021-02-17] MEDS: DICYCLOMINE 10 MG CAP PO SCH ×3 (09:48→21:06)
--- NOTE | 2021-02-17 13:01 | IPN ---
PROGRESS NOTE DATE: 02/17/2021 SUBJECTIVE: Mrs. Pollard is seen this morning during her physical rehab in the gym. She is feeling much better and excited about going home tomorrow. She denies any nausea, vomiting, fever or chills. OBJECTIVE: VITAL SIGNS: Temperature 97 degrees Fahrenheit, heart rate is 78 per minute and respiratory rate 18 per minute. Blood pressure 101/58 mmHg and oxygen saturation 95% on 2 liters of oxygen. HEAD AND NECK: Head is atraumatic. Neck is supple without JVD or thyroid enlargement. LUNGS: Slightly diminished breath sounds at bases. HEART: Heart sounds are irregular in rhythm. ABDOMEN: Soft and nontender. Bowel sounds are normal. EXTREMITIES: Without any cyanosis or clubbing. There is no peripheral edema at all. LABORATORY DATA: Today's labs showed a WBC count of 8.6, hemoglobin 11.0 and hematocrit 36. Sodium is 140, potassium is 3.8, CO2 38, BUN 14 and creatinine 1.11. PROBLEMS: 1. Acute renal failure superimposed on chronic kidney disease. She has mild chronic kidney disease at baseline. Her acute kidney function dysfunction has improved and at present her kidney function is stable at about baseline. 2. Congestive heart failure, volume status is very well compensated and she is currently on her pre-admission home dose of diuretic furosemide 60 mg daily along with potassium chloride 20 mEq daily. I have advised her to follow a low sodium diet as an outpatient after discharge. 3. Hypertension, blood pressure is very well-controlled and she should continue with her current antihypertensive medications. 4. Anemia. Her anemia is stable at present and does not need any intervention.
[2021-02-17 14:00] VITALS: BP 99/55
[2021-02-17] MEDS: PERCOCET 5MG/325MG TAB PO PRN (14:23)
--- NOTE | 2021-02-17 19:00 | CR ---
CONSULTATION DATE: 02/17/2021 REQUESTING PHYSICIAN: Dr. Sherron Zavala SUBJECTIVE: Patient is doing significantly better from the standpoint of abdominal pain and diarrhea. She is tolerating the amitriptyline well. Has not had any confusion or anxiety, etc. She no longer has any diarrhea. Her abdominal pain is significantly improved. The followup on her MRI of her bile duct shows that the bile duct is mildly dilated and has an abrupt cutoff at the distal end. The differential diagnosis includes stone or other. PHYSICAL EXAMINATION: HEAD, EYES, EARS, NOSE, AND THROAT: Grossly without abnormality. NECK: Negative for lymphadenopathy. CHEST: Coarse, distant breath sounds but no rhonchi or crackles. HEART: Regular rate and rhythm, s1, S2. ABDOMEN: Soft, nontender. Positive bowel sounds. No masses felt. IMPRESSION: 1. Lower abdominal pain, diarrhea, fecal urgency/irritable bowel syndrome. This is markedly improved with the use of amitriptyline 10 mg by mouth every night. She is tolerating this well at this time, and we will continue with this. 2. Incidental finding of a prominent common bile duct on CT scan dating back to 2016. The magnetic resonance cholangiopancreatography (MRCP) shows a dilated common bile duct with an abrupt ending to the bile duct suspicious for an obstructing lesion or stone. RECOMMENDATIONS: 1. Continue amitriptyline 10 mg by mouth every night for chronic abdominal pain, irritable bowel syndrome, and diarrhea. 2. The MRCP finding of abrupt termination of distal cbd should be followed up with an endoscopic retrograde cholangiopancreatography (ERCP), as it likely represents a benign/reversible condition. Reviewing her previous CT, the "mild biliary ductal dilation" has been present on CT since 2016, so I do not think this is acute, and I do not think this is malignant. Her LFT are normal, she has no biliary pain or symptoms. Due to CHF,COPD and significant elevation of her central venous pressure on recent echo, I will ask opinion/consultation with cardiology regarding clearance. The patient is on blood thinners, and is otherwise ready to be discharged from rehab. We will follow her in my office as outpatient and decide on further course of action. (ADD: I presented her the differential diagnosis of a lesion in the bile duct and the probable need for an eventual ERCP. Risks, benefits and options were discussed. She declined citing her heart condition and the risks. She would only agree to the procedure if this was emergent to save her life.) ERLINDA
[2021-02-17 20:01] VITALS: BP 117/55
[2021-02-17] MEDS: AMITRIPTYLINE 10MG TABLET PO SCH (21:06)
[2021-02-17] MEDS: **NOTE PATIENT COMMENT** MISC XX SCH (21:06)
[2021-02-18] MEDS: COMBIVENT RESPIMAT 100-20MCG INHALER 4GM INH SCH ×3 (02:00→13:14)
[2021-02-18] MEDS: METOPROLOL TART 50 MG TAB PO SCH ×2 (05:50→14:00)
[2021-02-18 06:00] VITALS: BP 106/60
[2021-02-18] MEDS: TIOTROPIUM INHALER/CAPSULE (SPIRIVA) INH SCH (07:22)
[2021-02-18] MEDS: LACTOBACILLUS ACIDOPHILUS CAP (BACID) PO SCH ×2 (08:26→12:26)
[2021-02-18] MEDS: PANTOPRAZOLE 40MG TAB (PROTONIX) PO SCH (08:26)
[2021-02-18] MEDS: DICYCLOMINE 10 MG CAP PO SCH (08:26)
[2021-02-18] MEDS: APIXABAN 5 MG TAB (ELIQUIS) PO SCH (08:26)
[2021-02-18] MEDS: POTASSIUM CHLORIDE 10 MEQ SR TABLET PO SCH (08:26)
[2021-02-18] MEDS: VITAMIN D 1,000 INTERNATIONAL UNITS TABLET PO SCH (08:26)
[2021-02-18] MEDS: MAGNESIUM OXIDE 400MG TAB (MAG-OX) PO SCH (08:26)
[2021-02-18] MEDS: ASCORBIC ACID 500 MG TAB PO SCH (08:26)
[2021-02-18] MEDS: LIDOCAINE 5% (LIDODERM) PATCH TD SCH (08:27)
[2021-02-18] MEDS: FUROSEMIDE 20 MG TAB PO SCH (08:27)
[2021-02-18] MEDS: SUCRALFATE 1 GM TAB PO SCH ×2 (08:27→11:09)
[2021-02-18] MEDS: SIMETHICONE 80MG CHEW TAB PO SCH (08:28)
[2021-02-18 09:46] LABS: BASO % 0.4 % (0.0-1.0); EOS # 0.3 10^3/uL (0.0-0.5); EOS % 2.7 % (0.0-3.0); HEMATOCRIT 37.8 % (36.0-47.0); HEMOGLOBIN 11.4 g/dl (12.0-15.5); LYMPH # 0.9 10^3/uL (1.5-5.0); LYMPH % 8.4 % (24.0-44.0); MEAN CORPUSCULAR HEMOGLOBIN 30.9 pg (27.0-33.0); MEAN CORPUSCULAR HGB CONC 30.2 g/dl (32.0-36.5); MEAN CORPUSCULAR VOLUME 102.4 fl (80.0-96.0); MONO # 0.8 10^3/uL (0.0-0.8); MONO % 7.3 % (2.0-8.0); NEUTROPHILS # 8.3 10^3/uL (1.5-8.5); NEUTROPHILS % 80.5 % (36.0-66.0); PLATELET COUNT, AUTOMATED 186 10^3/uL (150-450); RED BLOOD COUNT 3.69 10^6/uL (4.00-5.40); WHITE BLOOD COUNT 10.3 10^3/uL (4.0-10.0)
[2021-02-18 10:12] LABS: ALBUMIN 2.6 GM/DL (3.2-5.2); BILIRUBIN,TOTAL 0.9 MG/DL (0.2-1.0); CALCIUM LEVEL 8.6 MG/DL (8.8-10.2); CREATININE FOR GFR 1.15 MG/DL (0.55-1.30); GLOMERULAR FILTRATION RATE 48.7 (>39); POTASSIUM SERUM 4.5 MEQ/L (3.5-5.1); TOTAL PROTEIN 5.3 GM/DL (6.4-8.2)
[2021-02-18] MEDS: PERCOCET 5MG/325MG TAB PO PRN (11:10)
[2021-02-18] MEDS ORDERED: PROAAER10 INH (11:37)
[2021-02-18] MEDS ORDERED: SUCR1TA PO (11:37)
[2021-02-18] MEDS ORDERED: LOPR1TAB6 PO (11:37)
[2021-02-18] MEDS ORDERED: AMIT10TA7 PO (11:37)
[2021-02-18] MEDS ORDERED: VITAD1000T PO (11:37)
[2021-02-18] MEDS ORDERED: RISATAB3 PO (11:37)
[2021-02-18] MEDS ORDERED: FURO20TA2 PO (11:37)
[2021-02-18] MEDS ORDERED: MI-A80CH PO (11:37)
[2021-02-18] MEDS ORDERED: SPIR1CAP INH (11:37)
[2021-02-18] MEDS ORDERED: MAGN400T2 PO (11:37)
[2021-02-18] MEDS ORDERED: ASCO50TA PO (11:37)
[2021-02-18] MEDS ORDERED: DICY1CAP8 PO (11:37)
[2021-02-18] MEDS ORDERED: KLOR10TA76 PO (11:37)
[2021-02-18] MEDS ORDERED: PANT40TA29 PO (11:37)
[2021-02-18] MEDS ORDERED: ELIQ5TAB PO (11:37)
--- NOTE | 2021-02-18 11:47 | IPNPDOC ---
PM&R Progress Note Fruit Room Hand Progress Note DATE OF ADMISSION: February 08, 2021 at 14:45 INPATIENT REHABILITATION ADMISSION DAY: # SUBJECTIVE: Patient is a -year-old with . ALLERGIES: See Below MEDICATIONS: Reviewed, see below. OBJECTIVE: VITAL SIGNS: Please see below. PHYSICAL EXAMINATION: GENERAL: [Cachectic, well developed, sitting up in bed, no acute distress]. HEENT: [Normocephalic, atraumatic]. [No facial droop]. [Poor dentition, missing teeth. PERRL, EOMI]. CARDIOVASCULAR: [S1, S2, irregular rate]. [No lower limb edema or calf tenderness]. LUNGS: [Decreased breath sounds, coarse throughout]. ABDOMEN: [Soft, nontender, nondistended. Normoactive bowel sounds throughout]. MUSCULOSKELETAL: MMT: /5 strength proximally bilateral shoulder abduction, forward flexion and bilateral hip flexion. /5 strength bilateral elbow flexion, knee flexion, /5 bilateral elbow extension and knee extension. /5 director banking, dorsiflexion, plantar flexion. NEUROLOGICAL: [Alert and oriented times three]. [Answers all question appropriately]. SKIN: . LABORATORY DATA: Reviewed. Please see below. MICROBIOLOGY: Please see below. IMAGING: ASSESSMENT AND PLAN: 1. . 2. . 3. . TIME SPENT: Chart Review, examination and documentation minutes. Allergies Coded Allergies: adhesive tape (Verified Allergy, Mild, RASH, 01/13/21) latex (Verified Allergy, Mild, RASH, 01/13/21) azithromycin (Unverified Adverse Reaction, Mild, GI, 01/13/21) Listed under diet Vital Signs Vital Signs Date Time Temp Pulse Resp B/P (MAP) Pulse Ox O2 Delivery O2 Flow Rate FiO2 02/18/21 11:42 18 Nasal Cannula 2.0 02/18/21 06:00 97.8 80 106/60 (75) 96 Laboratory Data CBC/BMP Laboratory Tests 02/18/21 09:32 Labs 24H Laboratory Tests 2 02/17/21 16:32: Bedside Glucose (Misc Panel) 114H 02/18/21 06:26: Bedside Glucose (Misc Panel) 100 02/18/21 09:32: Immature Granulocyte % (Auto) 0.7, Neutrophils (%) (Auto) 80.5H, Lymphocytes (%) (Auto) 8.4L, Monocytes (%) (Auto) 7.3, Eosinophils (%) (Auto) 2.7, Basophils (%) (Auto) 0.4, Neutrophils # (Auto) 8.3, Lymphocytes # (Auto) 0.9L, Monocytes # (Auto) 0.8, Eosinophils # (Auto) 0.3, Basophils # (Auto) 0.0, Nucleated Red Blood Cells % (auto) 0.0, Anion Gap 3L, Glomerular Filtration Rate 48.7, Calcium Level 8.6L, Total Bilirubin 0.9, Aspartate Amino Transf (AST/SGOT) 11, Alanine Aminotransferase (ALT/SGPT) 9L, Alkaline Phosphatase 82, Total Protein 5.3L, Albumin 2.6L, Albumin/Globulin Ratio 1.0L Microbiology Microbiology 02/10/21 Urine Culture - Final, Complete Klebsiella Pneumoniae Current Medications Current Medications Current Medications Medications (Trade) Dose Ordered Sig/Kiran Route PRN Reason Start Time Stop Time Status Last Admin Dose Admin Acetaminophen (Tylenol Tab) 650 mg Q4HP PRN PO fever/MILD PAIN (PS 1-4) 02/08/21 11:55 02/12/21 13:46 DC 02/12/21 09:33 Acetaminophen (Tylenol Tab) 650 mg Q6HP PRN PO fever/MILD PAIN (PS 1-4) 02/12/21 21:00 02/17/21 14:22 Albuterol/ Ipratropium (Combivent Respimat 100-20mcg) 1 puff RQ6H INH 02/08/21 20:00 02/18/21 07:22 Amiloride HCl (Midamor) 5 mg DAILY PO 02/09/21 09:00 Cancel Amiloride HCl (Midamor) 5 mg DAILY PO 02/10/21 09:00 02/13/21 08:03 DC 02/12/21 08:14 Amitriptyline HCl (Elavil) 10 mg QHS PO 02/13/21 21:00 02/17/21 21:06 Apixaban (Eliquis) 5 mg BID PO 02/08/21 21:00 02/18/21 08:26 Ascorbic Acid (Vitamin C) 500 mg DAILY PO 02/09/21 09:00 02/18/21 08:26 Bisacodyl (Dulcolax Suppository) 10 mg DAILYPRN PRN [place] CONSTIPATION 02/08/21 11:55 Cancel Dextrose (Dextrose 50%) 25 ml ASDIRECTED PRN IV SEE LABEL COMMENTS 02/08/21 11:55 Dicyclomine HCl (Bentyl) 10 mg Q6HP PRN PO abdominal pain 02/10/21 22:10 02/11/21 14:18 DC Dicyclomine HCl (Bentyl) 10 mg TID PO 02/11/21 16:00 02/18/21 08:26 Docusate Sodium (Colace) 100 mg BID PO 02/08/21 21:00 02/10/21 13:52 DC 02/09/21 07:45 Duloxetine HCl (Cymbalta) 20 mg DAILY PO 02/10/21 09:00 02/10/21 18:40 DC 02/10/21 08:26 Furosemide (Lasix) 60 mg DAILY PO 02/09/21 09:00 02/09/21 13:00 DC 02/09/21 07:48 Furosemide (Lasix) 60 mg DAILY PO 02/16/21 09:00 02/18/21 08:27 Glucagon (Glucagon) 1 mg ASDIRECTED PRN SC SEE LABEL COMMENTS 02/08/21 11:55 Glucose (Glucose) 16 GM ASDIRECTED PRN PO SEE LABEL COMMENTS 02/08/21 11:55 Hydroxyzine HCl (Atarax) 10 mg Q6HP PRN PO ANXIETY/AGITATION 02/16/21 13:35 02/16/21 22:39 Insulin Human Lispro (HumaLOG INSULIN) SEE PROTOCOL TABLE AC SC 02/08/21 17:30 02/12/21 13:46 DC 02/09/21 12:16 Insulin Human Lispro (HumaLOG INSULIN) SEE PROTOCOL TABLE QHS SC 02/08/21 21:00 02/12/21 13:46 DC Lactobacillus Acidophilus (Bacid) 1 ea WM PO 02/12/21 12:30 02/18/21 08:26 Levofloxacin (Levaquin) 250 mg DAILY@06 PO 02/12/21 09:45 02/14/21 06:01 DC 02/14/21 05:52 Lidocaine (Lidoderm Patch) 1 patch DAILY TD 02/09/21 14:20 02/18/21 08:27 Lorazepam (Ativan) 0.5 mg Q6HP PRN PO ANXIETY 02/15/21 17:45 02/16/21 13:32 DC 02/15/21 17:49 Magnesium Gluconate (Magnesium Gluconate) 500 mg BID PO 02/13/21 09:00 Cancel Magnesium Oxide (Mag-Ox) 400 mg BID PO 02/10/21 09:00 02/10/21 17:52 DC 02/10/21 10:05 Magnesium Oxide (Mag-Ox) 400 mg BID PO 02/12/21 09:00 02/12/21 10:21 DC 02/12/21 08:15 Magnesium Oxide (Mag-Ox) 400 mg BID PO 02/13/21 09:00 02/18/21 08:26 Magnesium Oxide (Mag-Ox) 400 mg DAILY PO 02/09/21 09:00 02/10/21 08:25 DC 02/09/21 07:45 Magnesium Sulfate/ Dextrose 1 gm/IV Miscellaneous Supplies 100 ml @ 100 mls/hr Q1H IV 02/11/21 11:00 02/11/21 12:59 DC 02/11/21 13:47 Metoprolol Tartrate (Lopressor) 50 mg Q8H PO 02/08/21 22:00 02/17/21 21:06 Non-Formulary Medication ( See Comment Field Below ) REMOVE LIDODERM PATCH DAILY@21 XX 02/09/21 21:00 02/17/21 21:06 Oxycodone/ Acetaminophen (Percocet 5mg/ 325mg Tablet) 0.5 tab Q8HP PRN PO MODERATE PAIN (PS 5-7) 02/12/21 13:45 02/18/21 11:10 Pancrelipase (Creon-24) 2 ea WM PO 02/08/21 18:00 02/13/21 19:49 DC 02/13/21 17:34 Pantoprazole Sodium (Protonix) 40 mg BID PO 02/08/21 21:00 02/18/21 08:26 Polyethylene Glycol (Miralax) 1 pkt DAILY PRN PO CONSTIPATION 02/08/21 11:55 02/10/21 13:52 DC 02/09/21 07:43 Potassium Chloride (Micro-K Extencaps) 10 meq DAILY PO 02/09/21 09:00 02/09/21 10:45 DC 02/09/21 07:47 Potassium Chloride (Micro-K Extencaps) 20 meq DAILY PO 02/10/21 09:00 Cancel Potassium Chloride (Micro-K Extencaps) 20 meq DAILY PO 02/13/21 09:00 02/18/21 08:26 Senna (Senokot) 1 tab QHS PO 02/08/21 21:00 02/10/21 13:52 DC 02/08/21 21:21 Simethicone (Mylicon) 80 mg TID PO 02/11/21 09:00 02/16/21 22:40 Sucralfate (Carafate) 1 gm ACHS PO 02/08/21 17:30 02/18/21 11:09 Tiotropium [place] (Spiriva Handihaler) 1 inhalation DAILY@08 INH 02/09/21 08:00 02/18/21 07:22 Torsemide (Demadex) 20 mg DAILY PO 02/13/21 09:00 Cancel Torsemide (Demadex) 40 mg BID@09,17 PO 02/09/21 14:00 02/10/21 13:53 DC 02/10/21 08:27 Torsemide (Demadex) 40 mg DAILY PO 02/11/21 09:00 02/12/21 11:16 DC 02/12/21 08:14 Vitamin D (Vitamin D) 1,000 units DAILY PO 02/09/21 09:00 02/18/21 08:26 CHIRAG LARA MD Feb 18, 2021 11:47
[2021-02-18] MEDS ORDERED: METO50TA7 PO (11:51)
--- NOTE | 2021-02-18 13:38 | PMRDS ---
NAME: ANETA DE SANTIAGO [facility] WT ID#: [id number] : 1945 JOB: [id number] NESSA: 02/18/2021 ACCT: [id number] DOCTOR: CHIRAG LRAA MD PMR DISCHARGE SUMMARY DATE OF ADMISSION: 02/08/2021 DATE OF DISCHARGE: 02/18/2021 CHIEF COMPLAINT/DISCHARGE DIAGNOSIS: Congestive heart failure (CHF) exacerbation with common bile duct dilatation. HISTORY OF PRESENT ILLNESS: A 75-year-old female with a past medical history of atrial fibrillation, chronic obstructive pulmonary disease (COPD), pulmonary hypertension, obstructive sleep apnea (LEANNE), not on continuous positive airway pressure (CPAP), chronic hypoxemia, on oxygen, diabetes, back pain, and multiple joint osteoarthritis (OA), on chronic opioids, who fell at home and presented to [facility] Emergency Department ([facility] ED) of 01/13/2021 complaining of back pain and abdominal pain. She was found to be in CHF exacerbation with rapid ventricular rate (RVR) and was diuresed and monitored on telemetry. She had bilateral pleural effusions, left greater than right, in the setting of CHF and underwent a left thoracentesis on 01/21/2021 with results showing transudative fluid. She complained of continued abdominal pain, thought to be due to constipation due to chronic opioid use; however, CT abdomen and pelvis revealed "Mild dilatation of the common bile duct at 10 mm, stable, mild left-sided colonic diverticulosis, enlarged right adrenal myolipoma, now measuring up to 6.4 cm. Fatty liver, calcified granulomas in the right lobe of liver." Case was discussed with GI, who recommended addition of Creon and to continue proton pump inhibitor (PPI) and sucralfate with outpatient followup. She was admitted to acute rehabilitation unit (ARU) on 01/25/2021, and unfortunately had to be discharged to intensive care unit (ICU) on 02/01/2021 for hypercapnia and encephalopathy in the setting of CHF exacerbation with worsening pleural effusions. She was diuresed aggressively. Her home Valium and oxycodone were discontinued due to encephalopathy, and she was deemed medically appropriate for discharge back to ARU on 02/08/2021 to continue to advance her mobility. PAST MEDICAL HISTORY: As per history of present illness (HPI). HOSPITAL COURSE: Patient was admitted and enrolled in a comprehensive physical therapy (PT)/occupational therapy (OT) program. She received 24-hour nursing supervision, and weekly team meetings were held to discuss her progress. Patient was followed closely by renal for her fluid overload status and was maintained on a fluid restriction in addition to Lasix. She developed diarrhea following a period of constipation with diffuse and persistent abdominal pain. GI was re-consulted to evaluate patient and suspected patient might have narcotic gut versus irritable bowel syndrome (IBS) and recommended starting amitriptyline. Patient's abdominal pain did improve on amitriptyline in addition to simethicone and Bentyl. There was concern about her dilated common bile duct being dilated and concern for possible mass, for which a magnetic resonance cholangiopancreatography (MRCP) was ordered. MRCP continued to show a dilated common bile duct (CBD) and was unable to rule out an obstructing lesion. Patient's liver function tests were within normal limits, and GI recommended close followup as outpatient to discuss the possibility of endoscopic retrograde cholangiopancreatography (ERCP). There was concern for patient's cardiac function being compromised if she were to undergo an ERCP. Patient on day of discharge declined further workup, however, was instructed to followup with Dr. Hernandez in outpatient setting to discuss possibly needing an ERCP in the future. Patient was treated for a urinary tract infection with Levaquin times 3 days with resolution of her dysuria. She had no further episodes of encephalopathy, and she was treated as needed for hypokalemia and hypomagnesemia. Overall patient made steady gains in therapy and was deemed functionally stable to return home with her . Of note, patient was offered a hospital bed on multiple occasions to assist with her CHF and declined. DISCHARGE MEDICATIONS: As per instructions. FUNCTIONAL HISTORY ON DISCHARGE: Patient was modified independent. Able to ambulate 20 feet and standby assist to modified independent for grooming and dressing. Thank you for this referral.
[2021-02-18 14:00] VITALS: BP 108/62
== END 2021-02-18 15:15 | disposition home health service (06) | DRG 948 ==
LOC: M PM&R 14:45
PROVIDERS: ADMIT Physical Medicine & Rehabilitation; ATTEND Physical Medicine & Rehabilitation
DX: R53.1 Weakness (principal); I50.32 Chronic diastolic (congestive) heart failure; J96.11 Chronic respiratory failure with hypoxia; E87.4 Mixed disorder of acid-base balance; N17.9 Acute kidney failure, unspecified; I13.0 Hypertensive heart and chronic kidney disease with heart failure and stage 1 through stage 4 chronic kidney disease, or unspecified chronic kidney disease; I48.91 Unspecified atrial fibrillation; I27.20 Pulmonary hypertension, unspecified; G47.33 Obstructive sleep apnea (adult) (pediatric); E11.42 Type 2 diabetes mellitus with diabetic polyneuropathy; K58.2 Mixed irritable bowel syndrome; N18.9 Chronic kidney disease, unspecified; E87.6 Hypokalemia; M15.9 Polyosteoarthritis, unspecified; E11.22 Type 2 diabetes mellitus with diabetic chronic kidney disease; K76.0 Fatty (change of) liver, not elsewhere classified; Z74.09 Other reduced mobility; E83.42 Hypomagnesemia; G47.00 Insomnia, unspecified; K83.8 Other specified diseases of biliary tract; D64.9 Anemia, unspecified; T40.2X5A Adverse effect of other opioids, initial encounter; R91.1 Solitary pulmonary nodule; R20.0 Anesthesia of skin; Z99.81 Dependence on supplemental oxygen; K59.03 Drug induced constipation; N63.20 Unspecified lump in the left breast, unspecified quadrant; Z79.01 Long term (current) use of anticoagulants; Z79.899 Other long term (current) drug therapy; Z88.1 Allergy status to other antibiotic agents; Z91.040 Latex allergy status; Z91.048 Other nonmedicinal substance allergy status; Z90.49 Acquired absence of other specified parts of digestive tract; Z87.891 Personal history of nicotine dependence

== ENCOUNTER 2021-06-23 11:19 | Emergency (ER) | payer MEDICARE, OTHER ==
[~2021-06-23] VITALS: Ht 147.3 cm; Wt 72.7 kg
[~2021-06-23 11:19] MED LIST changes: +AMIT10TA7 PO; +ASCO50TA PO; +DICY1CAP8 PO; +DOK1CAP4 PO; -DOK1CAP7 PO; -KLOR10TA76 PO; +LOPR1TAB6 PO; +MAGN400T2 PO; +METO50TA7 PO; +MI-A80CH PO; +POTA-136 PO; +RISATAB3 PO; +SUCR1TA PO; +VITAD1000T PO
--- NOTE | 2021-06-23 12:00 | REP ---
INDICATION: CHEST PAIN. COMPARISON: Comparison chest x-ray February 06, 2021. TECHNIQUE: Portable upright AP chest radiograph. FINDINGS: EKG monitoring electrodes overlie the chest. Cardiomegaly is observed. There is very slight blunting of the pleural angles. Pulmonary vasculature is cephalized. The aorta is tortuous and calcific as before. IMPRESSION: Mild CHF pattern with cardiomegaly and very slight blunting of the pleural angles. Cephalization. No evidence of pulmonary edema. <Electronically signed by Darion Rodarte > 06/23/21 [id number]
[2021-06-23 12:43] LABS: BASO # 0.1 10^3/uL (0.0-0.2); BASO % 0.6 % (0.0-1.0); EOS # 0.2 10^3/uL (0.0-0.5); EOS % 2.2 % (0.0-3.0); HEMATOCRIT 33.1 % (36.0-47.0); HEMOGLOBIN 10.5 g/dl (12.0-15.5); LYMPH # 1.2 10^3/uL (1.5-5.0); LYMPH % 11.7 % (24.0-44.0); MEAN CORPUSCULAR HEMOGLOBIN 31.1 pg (27.0-33.0); MEAN CORPUSCULAR HGB CONC 31.7 g/dl (32.0-36.5); MEAN CORPUSCULAR VOLUME 97.9 fl (80.0-96.0); MONO # 0.8 10^3/uL (0.0-0.8); MONO % 7.7 % (2.0-8.0); NEUTROPHILS # 8.1 10^3/uL (1.5-8.5); NEUTROPHILS % 77.2 % (36.0-66.0); PLATELET COUNT, AUTOMATED 206 10^3/uL (150-450); RED BLOOD COUNT 3.38 10^6/uL (4.00-5.40); WHITE BLOOD COUNT 10.4 10^3/uL (4.0-10.0)
[2021-06-23 12:57] LABS: INR 1.47; PROTHROMBIN TIME 18.2 SECONDS (12.7-14.5)
[2021-06-23 12:58] LABS: PARTIAL THROMBOPLASTIN TIME 38.1 SECONDS (25.9-37.0)
[2021-06-23 13:06] LABS: ERYTHROCYTE SEDIMENTATION RATE 41 mm/hr (0-30)
[2021-06-23 13:10] LABS: ALBUMIN 2.4 GM/DL (3.2-5.2); ALT/SGPT 9 U/L (12-78); BILIRUBIN,DIRECT 0.2 MG/DL (0.0-0.2); BILIRUBIN,TOTAL 0.5 MG/DL (0.2-1.0); BLOOD UREA NITROGEN 18 MG/DL (7-18); C REACTIVE PROTEIN QUANTITATIV 1.23 MG/DL (0.00-0.30); CALCIUM LEVEL 8.8 MG/DL (8.8-10.2); CARBON DIOXIDE LEVEL 34 MEQ/L (21-32); CHLORIDE LEVEL 106 MEQ/L (98-107); CK-MB VALUE MASS < 1.0 NG/ML (<3.6); CPK CREATINE PHOSPHOKINASE 23 U/L (26-192); CREATININE FOR GFR 0.89 MG/DL (0.55-1.30); ETHYL ALCOHOL (ETHANOL) < 0.003 % (0.000-0.010); FREE T4 1.19 NG/DL (0.76-1.46); GLOMERULAR FILTRATION RATE > 60.0 (>39); GLUCOSE, FASTING 93 MG/DL (70-100); LIPASE 30 U/L (73-393); MB/CK RELATIVE INDEX 4.35 (< OR =4); NT-PRO BNP 2779 PG/ML (<450); POTASSIUM SERUM 3.5 MEQ/L (3.5-5.1); SODIUM LEVEL 143 MEQ/L (136-145); TOTAL PROTEIN 5.3 GM/DL (6.4-8.2); TROPONIN I < 0.02 NG/ML (< 0.10)
[2021-06-23] MEDS ORDERED: FUROSEMIDE 40MG/4ML VIAL (J1940) IV ONE (13:15)
[2021-06-23 14:00] VITALS: BP 147/75
--- NOTE | 2021-06-23 17:50 | ECGEPIP ---
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
== END 2021-06-23 16:04 | disposition home or self-care (01) ==
LOC: EDBD 11:19 → M ED 11:19
DX: I48.91 Unspecified atrial fibrillation (principal); I50.9 Heart failure, unspecified; J44.9 Chronic obstructive pulmonary disease, unspecified; R06.02 Shortness of breath; F17.200 Nicotine dependence, unspecified, uncomplicated; Z88.1 Allergy status to other antibiotic agents; Z91.040 Latex allergy status; Z91.048 Other nonmedicinal substance allergy status; Z79.899 Other long term (current) drug therapy; Z79.01 Long term (current) use of anticoagulants
CPT/HCPCS: 71045; 80048; 80076; 82077; 82550; 82553; 83690; 83880; 84439; 84443; 84484; 85025; 85610; 85652; 85730; 86140; 93005; 93041; 94760; 96374; 99285; J1940

== ENCOUNTER → 2021-07-12 | Outpatient (CLI) | payer MEDICARE, OTHER ==
--- NOTE | 2021-07-12 14:57 | REP ---
INDICATION: SEVERE PELVIC PAIN W/ BLEEDING. COMPARISON: 11/06/2018. TECHNIQUE: Transabdominal and transvaginal scanning performed. FINDINGS: Uterine dimensions are 7.1 x 3.6 x 4.2 cm. Endometrial echo is 5 mm in AP dimension and centrally placed. The bladder is empty. The ovaries could not be visualized. There is no adnexal mass identified. No free fluid is seen in the cul-de-sac. IMPRESSION: Endometrial thickness at the upper limits of normal to minimally thickened, 5 mm. No endometrial fluid collection. Ovaries could not be visualized. No evidence of adnexal mass or free fluid. <Electronically signed by Stepan Jeffries > 07/12/21 [id number]
== END ==
LOC: M RAD 12:18
PROVIDERS: ATTEND Obstetrics & Gynecology
DX: N95.0 Postmenopausal bleeding (principal)

== ENCOUNTER → 2021-10-29 | Outpatient (CLI) | payer MEDICARE, OTHER | LOC: M WUC 14:53 | PROVIDERS: ATTEND Physician Assistant Medical | DX: R91.8 Other nonspecific abnormal finding of lung field (principal); J44.9 Chronic obstructive pulmonary disease, unspecified; R06.02 Shortness of breath ==

== ENCOUNTER → 2021-10-29 | Outpatient (REF) | payer MEDICARE, OTHER | LOC: M LAB REF 16:15 | PROVIDERS: ATTEND Physician Assistant Medical | DX: R06.02 Shortness of breath (principal) ==

== ENCOUNTER → 2021-11-10 | Outpatient (CLI) | payer MEDICARE, OTHER | LOC: M WHC 15:16 | PROVIDERS: ATTEND Physician Assistant Medical | DX: N63.22 Unspecified lump in the left breast, upper inner quadrant (principal) | CPT/HCPCS: 76642; 77066; G0279 ==

== ENCOUNTER → 2021-11-24 | Outpatient (CLI) | payer MEDICARE, OTHER ==
[~2021-11-24] MED LIST changes: -D31000TA2 PO; +DIAZ5TAB PO; +OXYC10TA3 PO; +OXYC7.5T3 PO; +SPIR-10 PO; +TORS10TA3 PO; +TORS20TA2 PO; +VITA100093 PO
== END ==
LOC: M WHC 11:34
PROVIDERS: ATTEND Surgery
DX: R59.9 Enlarged lymph nodes, unspecified (principal)

== ENCOUNTER → 2021-11-24 | Outpatient (CLI) | payer MEDICARE, OTHER ==
[2021-11-24 12:35] VITALS: BP 146/84
== END ==
LOC: M WHCPRO 10:41
PROVIDERS: ATTEND Surgery
DX: D05.12 Intraductal carcinoma in situ of left breast (principal); R59.9 Enlarged lymph nodes, unspecified

== ENCOUNTER 2021-11-26 16:01 | Inpatient (IN) | payer MEDICARE, OTHER ==
[~2021-11-26] VITALS: Ht 147.3 cm; Wt 68.9 kg
[~2021-11-26 16:01] MED LIST changes: -OXYC7.5T3 PO; -SPIR-10 PO; -TORS20TA2 PO
[2021-11-26] MEDS ORDERED: COMBIVENT RESPIMAT 100-20MCG INHALER 4GM INH STA (16:15)
[2021-11-26 16:56] LABS: BASO # 0.1 10^3/uL (0.0-0.2); BASO % 0.5 % (0.0-1.0); EOS # 0.1 10^3/uL (0.0-0.5); EOS % 1.4 % (0.0-3.0); HEMATOCRIT 37.8 % (36.0-47.0); HEMOGLOBIN 11.3 g/dl (12.0-15.5); LYMPH # 0.6 10^3/uL (1.5-5.0); LYMPH % 6.1 % (24.0-44.0); MEAN CORPUSCULAR HEMOGLOBIN 30.9 pg (27.0-33.0); MEAN CORPUSCULAR HGB CONC 29.9 g/dl (32.0-36.5); MEAN CORPUSCULAR VOLUME 103.3 fl (80.0-96.0); MONO # 0.7 10^3/uL (0.0-0.8); MONO % 6.4 % (2.0-8.0); NEUTROPHILS # 8.8 10^3/uL (1.5-8.5); NEUTROPHILS % 85.1 % (36.0-66.0); PLATELET COUNT, AUTOMATED 152 10^3/uL (150-450); RED BLOOD COUNT 3.66 10^6/uL (4.00-5.40); WHITE BLOOD COUNT 10.4 10^3/uL (4.0-10.0)
[2021-11-26 17:19] LABS: ALBUMIN 3.8 GM/DL (3.2-5.2); BILIRUBIN,DIRECT 0.4 MG/DL (0.0-0.2); TOTAL PROTEIN 7.2 GM/DL (6.4-8.2)
[2021-11-26] MEDS ORDERED: FUROSEMIDE 40MG/4ML VIAL (J1940) IV ONE (17:35)
[2021-11-26] MEDS ORDERED: SPIR-10 PO (18:27)
[2021-11-26] MEDS ORDERED: POTA10TA17 PO (18:27)
[2021-11-26] MEDS ORDERED: AMIT10TA7 PO (18:27)
[2021-11-26] MEDS ORDERED: TORS20TA2 PO (18:27)
[2021-11-26] MEDS ORDERED: METO1TAB87 PO (18:27)
[2021-11-26] MEDS ORDERED: FURO20TA2 PO (18:27)
[2021-11-26] MEDS ORDERED: HOME MED LIST COMPLETE! XX SCH (18:45)
[2021-11-26] MEDS ORDERED: OXYC7.5T3 PO (18:45)
[2021-11-26] MEDS ORDERED: ALBUTEROL SULFATE 2.5 MG/0.5 ML INH NEB SOLN NEB PRN (19:45)
[2021-11-26] MEDS ORDERED: MOM 30ML SUSPENSION UDC PO PRN (19:45)
[2021-11-26 20:03] LABS: RSV AMPLIFICATION NEGATIVE (NEGATIVE)
[2021-11-26] MEDS ORDERED: ELIQ5TAB PO (20:49)
[2021-11-26] MEDS: APIXABAN 5 MG TAB (ELIQUIS) PO SCH (21:00)
[2021-11-26] MEDS: METOPROLOL TART 25 MG TABLET PO SCH (22:13)
[2021-11-26 22:41] LABS: INR 1.42; PROTHROMBIN TIME 17.8 SECONDS (12.7-14.5)
[2021-11-26] MEDS: PERCOCET 5MG/325MG TAB PO PRN (23:53)
[2021-11-27] VITALS (19 sets, daily range): BP systolic 84–168; BP diastolic 54–94
[2021-11-27] MEDS: FUROSEMIDE 40MG/4ML VIAL (J1940) IV SCH ×2 (01:49→08:41)
[2021-11-27] MEDS: ACETAMINOPHEN TAB 650MG DOSE (2X325MG) PO PRN (05:42)
[2021-11-27 05:45] LABS: HEMATOCRIT 33.3 % (36.0-47.0); HEMOGLOBIN 10.1 g/dl (12.0-15.5); MEAN CORPUSCULAR HEMOGLOBIN 31.3 pg (27.0-33.0); MEAN CORPUSCULAR HGB CONC 30.3 g/dl (32.0-36.5); MEAN CORPUSCULAR VOLUME 103.1 fl (80.0-96.0); PLATELET COUNT, AUTOMATED 125 10^3/uL (150-450); RED BLOOD COUNT 3.23 10^6/uL (4.00-5.40); WHITE BLOOD COUNT 9.3 10^3/uL (4.0-10.0)
[2021-11-27 06:37] LABS: BLOOD UREA NITROGEN 32 MG/DL (7-18); CALCIUM LEVEL 9.2 MG/DL (8.8-10.2); CARBON DIOXIDE LEVEL 52 MEQ/L (21-32); CHLORIDE LEVEL 94 MEQ/L (98-107); CREATININE FOR GFR 1.28 MG/DL (0.55-1.30); GLOMERULAR FILTRATION RATE 42.9 (>39); GLUCOSE, FASTING 110 MG/DL (70-100); POTASSIUM SERUM 4.8 MEQ/L (3.5-5.1); SODIUM LEVEL 142 MEQ/L (136-145)
[2021-11-27 08:19] LABS: ABG BASE EXCESS 16.5 (-2.0-2.0); ABG HCO3 47.1 MEQ/L (22.0-26.0); ABG O2 SATURATION 95.5 % (95.0-99.0); ABG PARTIAL PRESSURE O2 85.8 mmHg (75.0-100.0); ABG STANDARD HCO3 40.4 MEQ/L (22.0-26.0); ABG TOTAL CO2 50.1 MEQ/L (23.0-31.0)
[2021-11-27 08:22] LABS: ABG PARTIAL PRESSURE CO2 100.1 mmHg (35.0-45.0)
[2021-11-27] MEDS: PERCOCET 5MG/325MG TAB PO PRN (08:41)
[2021-11-27] MEDS: SPIRONOLACTONE 12.5MG PER 1/2 TABLET PO SCH (08:41)
[2021-11-27] MEDS: POTASSIUM CHLORIDE 10MEQ SR TABLET PO SCH (08:41)
[2021-11-27] MEDS: VITAMIN D 1,000 INTERNATIONAL UNITS TABLET PO SCH (08:41)
[2021-11-27] MEDS: APIXABAN 5 MG TAB (ELIQUIS) PO SCH (08:41)
[2021-11-27] MEDS: ASCORBIC ACID 500 MG TAB PO SCH (08:41)
[2021-11-27] MEDS: METOPROLOL TART 25 MG TABLET PO SCH ×2 (08:44→20:11)
[2021-11-27] MEDS: diazePAM 5MG TABLET PO PRN (20:10)
[2021-11-28] VITALS (10 sets, daily range): BP systolic 101–160; BP diastolic 53–82
[2021-11-28] MEDS: PERCOCET 5MG/325MG TAB PO PRN ×3 (00:23→18:33)
[2021-11-28] MEDS: ACETAMINOPHEN TAB 650MG DOSE (2X325MG) PO PRN (04:57)
[2021-11-28 05:24] LABS: HEMATOCRIT 32.5 % (36.0-47.0); MEAN CORPUSCULAR HEMOGLOBIN 31.3 pg (27.0-33.0); MEAN CORPUSCULAR HGB CONC 30.8 g/dl (32.0-36.5); MEAN CORPUSCULAR VOLUME 101.9 fl (80.0-96.0); PLATELET COUNT, AUTOMATED 130 10^3/uL (150-450); RED BLOOD COUNT 3.19 10^6/uL (4.00-5.40); WHITE BLOOD COUNT 10.8 10^3/uL (4.0-10.0)
[2021-11-28 06:00] LABS: BLOOD UREA NITROGEN 36 MG/DL (7-18); CALCIUM LEVEL 9.1 MG/DL (8.8-10.2); CARBON DIOXIDE LEVEL 49 MEQ/L (21-32); CHLORIDE LEVEL 93 MEQ/L (98-107); CREATININE FOR GFR 1.28 MG/DL (0.55-1.30); GLOMERULAR FILTRATION RATE 42.9 (>39); GLUCOSE, FASTING 91 MG/DL (70-100); MAGNESIUM LEVEL 1.8 MG/DL (1.8-2.4); POTASSIUM SERUM 4.9 MEQ/L (3.5-5.1); SODIUM LEVEL 141 MEQ/L (136-145)
[2021-11-28] MEDS ORDERED: MAGNESIUM OXIDE 400MG TAB (MAG-OX) PO ONE (08:00)
[2021-11-28] MEDS: OXYMETAZOLINE 0.05% NASAL SPRAY (AFRIN) SCH ×2 (09:00→20:14)
[2021-11-28 09:06] LABS: ABG BASE EXCESS 21.1 (-2.0-2.0); ABG HCO3 50.9 MEQ/L (22.0-26.0); ABG O2 SATURATION 95.4 % (95.0-99.0); ABG PARTIAL PRESSURE O2 79.6 mmHg (75.0-100.0); ABG STANDARD HCO3 45.5 MEQ/L (22.0-26.0); ABG TOTAL CO2 53.7 MEQ/L (23.0-31.0); ABG pH (ARTERIAL) 7.357 UNITS (7.350-7.450)
[2021-11-28 09:09] LABS: ABG PARTIAL PRESSURE CO2 92.8 mmHg (35.0-45.0)
[2021-11-28] MEDS: SPIRONOLACTONE 12.5MG PER 1/2 TABLET PO SCH (09:35)
[2021-11-28] MEDS: ASCORBIC ACID 500 MG TAB PO SCH (09:36)
[2021-11-28] MEDS: VITAMIN D 1,000 INTERNATIONAL UNITS TABLET PO SCH (09:36)
[2021-11-28] MEDS: POTASSIUM CHLORIDE 10MEQ SR TABLET PO SCH (09:36)
[2021-11-28] MEDS: METOPROLOL TART 25 MG TABLET PO SCH ×2 (09:36→20:15)
[2021-11-28] MEDS: FUROSEMIDE 40MG/4ML VIAL (J1940) IV SCH (09:37)
[2021-11-28] MEDS: APIXABAN 5 MG TAB (ELIQUIS) PO SCH (20:12)
[2021-11-29] MEDS: diazePAM 5MG TABLET PO PRN ×2 (00:54→14:23)
[2021-11-29] MEDS: ACETAMINOPHEN TAB 650MG DOSE (2X325MG) PO PRN ×2 (00:56→08:21)
[2021-11-29 02:00] VITALS: BP 118/60
[2021-11-29 06:00] VITALS: BP 120/59
[2021-11-29 06:44] LABS: HEMATOCRIT 32.2 % (36.0-47.0); MEAN CORPUSCULAR HEMOGLOBIN 31.7 pg (27.0-33.0); MEAN CORPUSCULAR HGB CONC 31.1 g/dl (32.0-36.5); MEAN CORPUSCULAR VOLUME 102.2 fl (80.0-96.0); PLATELET COUNT, AUTOMATED 115 10^3/uL (150-450); RED BLOOD COUNT 3.15 10^6/uL (4.00-5.40); WHITE BLOOD COUNT 8.7 10^3/uL (4.0-10.0)
[2021-11-29 07:23] LABS: CALCIUM LEVEL 9.1 MG/DL (8.8-10.2); CREATININE FOR GFR 1.19 MG/DL (0.55-1.30); GLOMERULAR FILTRATION RATE 46.7 (>39); MAGNESIUM LEVEL 2.1 MG/DL (1.8-2.4); POTASSIUM SERUM 4.4 MEQ/L (3.5-5.1)
[2021-11-29] MEDS: FUROSEMIDE 40MG/4ML VIAL (J1940) IV SCH (08:19)
[2021-11-29] MEDS: ASCORBIC ACID 500 MG TAB PO SCH (08:20)
[2021-11-29] MEDS: POTASSIUM CHLORIDE 10MEQ SR TABLET PO SCH (08:20)
[2021-11-29] MEDS: APIXABAN 5 MG TAB (ELIQUIS) PO SCH ×2 (08:20→20:31)
[2021-11-29] MEDS: VITAMIN D 1,000 INTERNATIONAL UNITS TABLET PO SCH (08:20)
[2021-11-29] MEDS: SPIRONOLACTONE 12.5MG PER 1/2 TABLET PO SCH (08:20)
[2021-11-29] MEDS: METOPROLOL TART 25 MG TABLET PO SCH ×2 (08:20→20:29)
[2021-11-29] MEDS: OXYMETAZOLINE 0.05% NASAL SPRAY (AFRIN) SCH ×2 (08:23→20:31)
[2021-11-29 14:00] VITALS: BP 142/73
[2021-11-29] MEDS: PERCOCET 5MG/325MG TAB PO PRN (20:30)
[2021-11-29 22:00] VITALS: BP 146/72
[2021-11-30] MEDS: diazePAM 5MG TABLET PO PRN ×2 (01:32→18:28)
[2021-11-30 06:00] VITALS: BP 128/63
[2021-11-30 07:01] LABS: HEMOGLOBIN 10.8 g/dl (12.0-15.5); MEAN CORPUSCULAR HEMOGLOBIN 31.2 pg (27.0-33.0); MEAN CORPUSCULAR HGB CONC 30.9 g/dl (32.0-36.5); MEAN CORPUSCULAR VOLUME 101.2 fl (80.0-96.0); PLATELET COUNT, AUTOMATED 115 10^3/uL (150-450); RED BLOOD COUNT 3.46 10^6/uL (4.00-5.40); WHITE BLOOD COUNT 9.1 10^3/uL (4.0-10.0)
[2021-11-30 07:33] LABS: BLOOD UREA NITROGEN 27 MG/DL (7-18); CALCIUM LEVEL 9.1 MG/DL (8.8-10.2); CHLORIDE LEVEL 94 MEQ/L (98-107); CREATININE FOR GFR 1.13 MG/DL (0.55-1.30); GLOMERULAR FILTRATION RATE 49.6 (>39); GLUCOSE, FASTING 83 MG/DL (70-100); MAGNESIUM LEVEL 2.1 MG/DL (1.8-2.4); POTASSIUM SERUM 4.8 MEQ/L (3.5-5.1); SODIUM LEVEL 143 MEQ/L (136-145)
[2021-11-30 07:46] LABS: CARBON DIOXIDE LEVEL 52 MEQ/L (21-32)
[2021-11-30 08:00] VITALS: BP 130/72
[2021-11-30] MEDS: ACETAMINOPHEN TAB 650MG DOSE (2X325MG) PO PRN ×2 (10:00→15:01)
[2021-11-30] MEDS: POTASSIUM CHLORIDE 10MEQ SR TABLET PO SCH (10:01)
[2021-11-30] MEDS: VITAMIN D 1,000 INTERNATIONAL UNITS TABLET PO SCH (10:01)
[2021-11-30] MEDS: SPIRONOLACTONE 12.5MG PER 1/2 TABLET PO SCH (10:01)
[2021-11-30] MEDS: ASCORBIC ACID 500 MG TAB PO SCH (10:01)
[2021-11-30] MEDS: APIXABAN 5 MG TAB (ELIQUIS) PO SCH ×2 (10:02→21:04)
[2021-11-30] MEDS: METOPROLOL TART 25 MG TABLET PO SCH ×2 (10:03→21:04)
[2021-11-30] MEDS: OXYMETAZOLINE 0.05% NASAL SPRAY (AFRIN) SCH ×2 (10:05→21:04)
[2021-11-30] MEDS: FUROSEMIDE 40MG/4ML VIAL (J1940) IV SCH (10:05)
[2021-11-30 12:00] VITALS: BP 124/68
[2021-11-30 14:45] VITALS: BP 128/74
[2021-11-30 20:58] VITALS: BP 130/60
[2021-12-01 06:00] VITALS: BP 132/62
[2021-12-01 07:41] LABS: HEMATOCRIT 35.4 % (36.0-47.0); HEMOGLOBIN 10.7 g/dl (12.0-15.5); MEAN CORPUSCULAR HEMOGLOBIN 30.8 pg (27.0-33.0); MEAN CORPUSCULAR HGB CONC 30.2 g/dl (32.0-36.5); PLATELET COUNT, AUTOMATED 119 10^3/uL (150-450); RED BLOOD COUNT 3.47 10^6/uL (4.00-5.40)
[2021-12-01 08:42] LABS: CALCIUM LEVEL 9.2 MG/DL (8.8-10.2); CREATININE FOR GFR 1.11 MG/DL (0.55-1.30); GLOMERULAR FILTRATION RATE 50.6 (>39); MAGNESIUM LEVEL 2.4 MG/DL (1.8-2.4); POTASSIUM SERUM 4.6 MEQ/L (3.5-5.1)
[2021-12-01] MEDS: SPIRONOLACTONE 12.5MG PER 1/2 TABLET PO SCH (09:00)
[2021-12-01] MEDS: METOPROLOL TART 25 MG TABLET PO SCH ×2 (09:04→21:00)
[2021-12-01] MEDS: ASCORBIC ACID 500 MG TAB PO SCH (09:05)
[2021-12-01] MEDS: POTASSIUM CHLORIDE 10MEQ SR TABLET PO SCH (09:05)
[2021-12-01] MEDS: APIXABAN 5 MG TAB (ELIQUIS) PO SCH ×2 (09:05→20:10)
[2021-12-01] MEDS: ACETAMINOPHEN TAB 650MG DOSE (2X325MG) PO PRN ×2 (09:05→13:18)
[2021-12-01] MEDS: VITAMIN D 1,000 INTERNATIONAL UNITS TABLET PO SCH (09:05)
[2021-12-01] MEDS: TORSEMIDE 20 MG TAB PO SCH (09:05)
[2021-12-01] MEDS: PERCOCET 5MG/325MG TAB PO PRN (20:12)
[2021-12-02] MEDS: ACETAMINOPHEN TAB 650MG DOSE (2X325MG) PO PRN (01:07)
[2021-12-02] MEDS: diazePAM 5MG TABLET PO PRN (01:08)
[2021-12-02] MEDS ORDERED: PERCOCET 5MG/325MG TAB PO ONE (03:55)
[2021-12-02 05:00] VITALS: BP 133/64
[2021-12-02 08:00] VITALS: BP 132/65
[2021-12-02] MEDS: POTASSIUM CHLORIDE 10MEQ SR TABLET PO SCH (08:00)
[2021-12-02] MEDS: VITAMIN D 1,000 INTERNATIONAL UNITS TABLET PO SCH (08:00)
[2021-12-02] MEDS: METOPROLOL TART 25 MG TABLET PO SCH (08:00)
[2021-12-02] MEDS: TORSEMIDE 20 MG TAB PO SCH (08:00)
[2021-12-02] MEDS: ASCORBIC ACID 500 MG TAB PO SCH (08:00)
[2021-12-02] MEDS: APIXABAN 5 MG TAB (ELIQUIS) PO SCH (08:00)
[2021-12-02] MEDS: SPIRONOLACTONE 12.5MG PER 1/2 TABLET PO SCH (08:01)
[2021-12-02] MEDS ORDERED: METO25TA PO ×2 (14:43→14:50)
== END 2021-12-02 17:08 | disposition home health service (06) | DRG 264 ==
LOC: M ED 16:01 → M ED INP 19:43 → ENRESERV 21:41 → M MSPAV 11-27 00:46 → M ICU 11-27 09:46 → M MSPAV 11-28 14:47
PROVIDERS: ADMIT Internal Medicine; ATTEND Internal Medicine
PROC: 0HBU3ZX Excision of Left Breast, Percutaneous Approach, Diagnostic (ICD-10-PCS; principal; 2021-11-24)
PROC: 07B63ZX Excision of Left Axillary Lymphatic, Percutaneous Approach, Diagnostic (ICD-10-PCS; 2021-11-24)
DX: I50.33 Acute on chronic diastolic (congestive) heart failure (principal); J96.21 Acute and chronic respiratory failure with hypoxia; J96.22 Acute and chronic respiratory failure with hypercapnia; I48.20 Chronic atrial fibrillation, unspecified; E87.3 Alkalosis; G93.40 Encephalopathy, unspecified; G47.33 Obstructive sleep apnea (adult) (pediatric); C50.912 Malignant neoplasm of unspecified site of left female breast; E11.9 Type 2 diabetes mellitus without complications; R91.1 Solitary pulmonary nodule; I27.29 Other secondary pulmonary hypertension; D17.5 Benign lipomatous neoplasm of intra-abdominal organs; R04.0 Epistaxis; F17.200 Nicotine dependence, unspecified, uncomplicated; J44.9 Chronic obstructive pulmonary disease, unspecified; G89.29 Other chronic pain; Z79.899 Other long term (current) drug therapy; Z88.1 Allergy status to other antibiotic agents; Z91.040 Latex allergy status; Z91.048 Other nonmedicinal substance allergy status; Z99.81 Dependence on supplemental oxygen; Z79.01 Long term (current) use of anticoagulants

== ENCOUNTER → 2021-12-13 | Outpatient (CLI) | payer MEDICARE, OTHER ==
[~2021-12-13] MED LIST changes: +METO25TA PO; +OXYC7.5T3 PO; +SPIR-10 PO; +TORS20TA2 PO
== END ==
LOC: M PLARAD 13:57
PROVIDERS: ATTEND Surgery
DX: R93.89 Abnormal findings on diagnostic imaging of other specified body structures (principal); C50.812 Malignant neoplasm of overlapping sites of left female breast; R59.9 Enlarged lymph nodes, unspecified; R91.1 Solitary pulmonary nodule

== ENCOUNTER → 2022-01-03 | Outpatient (CLI) | payer MEDICARE, OTHER ==
[~2022-01-03] MED LIST changes: +HOME MED LIST COMPLETE! XX SCH; +LIDOCAINE 1% MDV 20ML VIAL As Ordered ONE
[2022-01-03 11:29] VITALS: BP 168/82
== END ==
LOC: M IRPRO 08:28
PROVIDERS: ATTEND Specialist
DX: R91.1 Solitary pulmonary nodule (principal)

== ENCOUNTER → 2022-01-25 | Outpatient (CLI) | payer MEDICARE, OTHER ==
[~2022-01-25] MED LIST changes: +ALBU8.5H INH; -HOME MED LIST COMPLETE! XX SCH; -LIDOCAINE 1% MDV 20ML VIAL As Ordered ONE
== END ==
LOC: M ONCR 09:48
PROVIDERS: ATTEND General Practice
DX: C50.912 Malignant neoplasm of unspecified site of left female breast (principal); C34.11 Malignant neoplasm of upper lobe, right bronchus or lung; I50.9 Heart failure, unspecified; J44.9 Chronic obstructive pulmonary disease, unspecified; F17.210 Nicotine dependence, cigarettes, uncomplicated; Z80.1 Family history of malignant neoplasm of trachea, bronchus and lung; Z80.3 Family history of malignant neoplasm of breast; Z88.1 Allergy status to other antibiotic agents; Z91.040 Latex allergy status; Z91.048 Other nonmedicinal substance allergy status

== ENCOUNTER 2022-02-03 10:34 | Outpatient (RCR) | payer MEDICARE, OTHER ==
[~2022-02-03 10:34] MED LIST changes: +ALBU2.5V10 NEB; -ALBU83IN NEB
== END 2022-02-15 ==
LOC: M ONCR 10:34
PROVIDERS: ATTEND General Practice
DX: C50.112 Malignant neoplasm of central portion of left female breast (principal); C34.12 Malignant neoplasm of upper lobe, left bronchus or lung

== ENCOUNTER → 2022-02-08 | Outpatient (REF) | payer MEDICARE, OTHER ==
[~2022-02-08] MED LIST changes: -ALBU2.5V10 NEB; +ALBU83IN NEB
[2022-02-08 13:40] LABS: HEMATOCRIT 35.2 % (36.0-47.0); HEMOGLOBIN 10.4 g/dl (12.0-15.5); MEAN CORPUSCULAR HEMOGLOBIN 30.3 pg (27.0-33.0); MEAN CORPUSCULAR HGB CONC 29.5 g/dl (32.0-36.5); MEAN CORPUSCULAR VOLUME 102.6 fl (80.0-96.0); PLATELET COUNT, AUTOMATED 153 10^3/uL (150-450); RED BLOOD COUNT 3.43 10^6/uL (4.00-5.40); WHITE BLOOD COUNT 9.8 10^3/uL (4.0-10.0)
[2022-02-09 04:15] LABS: CREATININE FOR GFR 1.43 MG/DL (0.55-1.30); GLOMERULAR FILTRATION RATE 37.8 (>39); POTASSIUM SERUM 4.2 MEQ/L (3.5-5.1)
[2022-02-09 04:16] LABS: CALCIUM LEVEL 8.8 MG/DL (8.8-10.2)
== END ==
LOC: M SHH 13:24
PROVIDERS: ATTEND Physician Assistant Medical
DX: C50.412 Malignant neoplasm of upper-outer quadrant of left female breast (principal); I50.32 Chronic diastolic (congestive) heart failure; Z17.0 Estrogen receptor positive status [ER+]; R06.02 Shortness of breath

== ENCOUNTER 2022-02-23 14:53 | Outpatient (RCR) | payer MEDICARE, OTHER ==
[~2022-02-23 14:53] MED LIST changes: +ALBU2.5V10 NEB; -ALBU83IN NEB; +POTA-150 PO; -POTA10TA17 PO
[2022-02-23] MEDS ORDERED: POTA-136 (16:45)
== END 2022-03-17 ==
LOC: M ONCR 14:53
PROVIDERS: ATTEND General Practice
DX: C50.112 Malignant neoplasm of central portion of left female breast (principal); C34.12 Malignant neoplasm of upper lobe, left bronchus or lung

== ENCOUNTER 2022-02-23 16:24 | Inpatient (IN) | payer MEDICARE, OTHER ==
[~2022-02-23] VITALS: Ht 147.3 cm; Wt 66.9 kg
[~2022-02-23 16:24] MED LIST changes: -POTA-150 PO; +POTA10TA17 PO
[2022-02-23] MEDS ORDERED: POTA-136 (16:45)
[2022-02-23 17:57] LABS: VENOUS BASE EXCESS 14.1 (-2.0-2.0); VENOUS HCO3 44.2 MEQ/L (23.0-27.0); VENOUS O2 SATURATION 76.2 % (60.0-80.0); VENOUS PARTIAL PRESSURE O2 41.3 mmHg (30.0-50.0); VENOUS STANDARD HCO3 37.5 MEQ/L; VENOUS TOTAL CO2 47.1 MEQ/L (24.0-28.0)
[2022-02-23 18:00] LABS: BASO % 0.4 % (0.0-1.0); EOS # 0.1 10^3/uL (0.0-0.5); EOS % 0.7 % (0.0-3.0); HEMATOCRIT 33.6 % (36.0-47.0); HEMOGLOBIN 9.9 g/dl (12.0-15.5); LYMPH # 0.5 10^3/uL (1.5-5.0); MEAN CORPUSCULAR HEMOGLOBIN 30.7 pg (27.0-33.0); MEAN CORPUSCULAR HGB CONC 29.5 g/dl (32.0-36.5); MONO # 0.6 10^3/uL (0.0-0.8); MONO % 6.1 % (2.0-8.0); NEUTROPHILS # 8.5 10^3/uL (1.5-8.5); NEUTROPHILS % 87.4 % (36.0-66.0); PLATELET COUNT, AUTOMATED 136 10^3/uL (150-450); RED BLOOD COUNT 3.23 10^6/uL (4.00-5.40); WHITE BLOOD COUNT 9.7 10^3/uL (4.0-10.0)
[2022-02-23 18:26] LABS: CK-MB VALUE MASS 2.9 NG/ML (<3.6); MB/CK RELATIVE INDEX 6.59 (< OR =4)
[2022-02-23] MEDS ORDERED: FUROSEMIDE 100MG/10ML VIAL (J1940) IV ONE (19:05)
[2022-02-23 19:14] LABS: ALBUMIN 3.4 GM/DL (3.2-5.2); BILIRUBIN,DIRECT 0.4 MG/DL (0.0-0.2); BILIRUBIN,TOTAL 1.2 MG/DL (0.2-1.0); CALCIUM LEVEL 9.6 MG/DL (8.8-10.2); CREATININE FOR GFR 1.29 MG/DL (0.55-1.30); GLOMERULAR FILTRATION RATE 42.6 (>39); POTASSIUM SERUM 4.7 MEQ/L (3.5-5.1); THYROID STIMULATING HORMONE 0.955 uIU/ML (0.358-3.740); TOTAL PROTEIN 6.8 GM/DL (6.4-8.2)
[2022-02-23 19:16] LABS: CK-MB VALUE MASS 2.6 NG/ML (<3.6); MB/CK RELATIVE INDEX 6.19 (< OR =4)
[2022-02-23] MEDS ORDERED: HOME MED LIST COMPLETE! XX SCH (20:20)
[2022-02-23] MEDS ORDERED: PERCOCET 5MG/325MG TAB PO PRN ×2 (20:50)
[2022-02-23 21:24] LABS: INR 1.42; PROTHROMBIN TIME 17.8 SECONDS (12.7-14.5)
[2022-02-23 21:25] LABS: PARTIAL THROMBOPLASTIN TIME 48.3 SECONDS (25.9-37.0)
[2022-02-23 22:40] VITALS: BP 147/80
[2022-02-23 23:37] LABS: ABG BASE EXCESS 14.8 (-2.0-2.0); ABG HCO3 45.6 MEQ/L (22.0-26.0); ABG O2 SATURATION 97.8 % (95.0-99.0); ABG PARTIAL PRESSURE CO2 102.5 mmHg (35.0-45.0); ABG PARTIAL PRESSURE O2 109.8 mmHg (75.0-100.0); ABG STANDARD HCO3 38.6 MEQ/L (22.0-26.0); ABG TOTAL CO2 48.7 MEQ/L (23.0-31.0); ABG pH (ARTERIAL) 7.266 UNITS (7.350-7.450)
[2022-02-23] MEDS: APIXABAN 5 MG TAB (ELIQUIS) PO SCH (23:39)
[2022-02-23] MEDS: METOPROLOL TART 25 MG TABLET PO SCH (23:39)
[2022-02-24] VITALS (8 sets, daily range): BP systolic 84–170; BP diastolic 52–77
[2022-02-24] MEDS ORDERED: FUROSEMIDE 40MG/4ML VIAL (J1940) IV SCH (04:00)
[2022-02-24 04:46] LABS: HEMATOCRIT 34.4 % (36.0-47.0); HEMOGLOBIN 10.1 g/dl (12.0-15.5); MEAN CORPUSCULAR HGB CONC 29.4 g/dl (32.0-36.5); MEAN CORPUSCULAR VOLUME 105.5 fl (80.0-96.0); PLATELET COUNT, AUTOMATED 133 10^3/uL (150-450); RED BLOOD COUNT 3.26 10^6/uL (4.00-5.40); WHITE BLOOD COUNT 10.9 10^3/uL (4.0-10.0)
[2022-02-24 05:03] LABS: CALCIUM LEVEL 9.5 MG/DL (8.8-10.2); CREATININE FOR GFR 1.27 MG/DL (0.55-1.30); GLOMERULAR FILTRATION RATE 43.3 (>39); POTASSIUM SERUM 4.8 MEQ/L (3.5-5.1)
[2022-02-24] MEDS: METOPROLOL TART 25 MG TABLET PO SCH ×2 (09:23→20:02)
[2022-02-24] MEDS: SPIRONOLACTONE 12.5MG PER 1/2 TABLET PO SCH (09:23)
[2022-02-24] MEDS: APIXABAN 5 MG TAB (ELIQUIS) PO SCH ×2 (09:23→20:02)
[2022-02-24] MEDS: POTASSIUM CHLORIDE 10MEQ SR TABLET PO SCH (09:23)
[2022-02-24 10:38] LABS: ABG BASE EXCESS 16.3 (-2.0-2.0); ABG HCO3 45.6 MEQ/L (22.0-26.0); ABG O2 SATURATION 96.8 % (95.0-99.0); ABG PARTIAL PRESSURE O2 92.3 mmHg (75.0-100.0); ABG STANDARD HCO3 40.1 MEQ/L (22.0-26.0); ABG TOTAL CO2 48.4 MEQ/L (23.0-31.0); ABG pH (ARTERIAL) 7.322 UNITS (7.350-7.450)
[2022-02-24 10:51] LABS: ABG PARTIAL PRESSURE CO2 90.2 mmHg (35.0-45.0)
[2022-02-24] MEDS: FUROSEMIDE 100MG/10ML VIAL (J1940) IV SCH ×2 (12:08→20:02)
[2022-02-24 15:13] LABS: ABG BASE EXCESS 19.7 (-2.0-2.0); ABG HCO3 48.2 MEQ/L (22.0-26.0); ABG O2 SATURATION 94.1 % (95.0-99.0); ABG PARTIAL PRESSURE O2 66.4 mmHg (75.0-100.0); ABG STANDARD HCO3 43.8 MEQ/L (22.0-26.0); ABG TOTAL CO2 50.7 MEQ/L (23.0-31.0); ABG pH (ARTERIAL) 7.395 UNITS (7.350-7.450)
[2022-02-24 15:16] LABS: ABG PARTIAL PRESSURE CO2 80.5 mmHg (35.0-45.0)
[2022-02-24] MEDS: ACETAMINOPHEN TAB 650MG DOSE (2X325MG) PO PRN (21:31)
[2022-02-24] MEDS: diazePAM 5MG TABLET PO PRN (21:32)
[2022-02-25] VITALS (8 sets, daily range): BP systolic 102–144; BP diastolic 55–68; O2SAT 91
[2022-02-25] MEDS: FUROSEMIDE 100MG/10ML VIAL (J1940) IV SCH ×3 (03:26→20:24)
[2022-02-25] MEDS: ACETAMINOPHEN TAB 650MG DOSE (2X325MG) PO PRN ×3 (04:15→12:35)
[2022-02-25 04:40] LABS: HEMATOCRIT 33.2 % (36.0-47.0); HEMOGLOBIN 10.1 g/dl (12.0-15.5); MEAN CORPUSCULAR HEMOGLOBIN 31.3 pg (27.0-33.0); MEAN CORPUSCULAR HGB CONC 30.4 g/dl (32.0-36.5); MEAN CORPUSCULAR VOLUME 102.8 fl (80.0-96.0); PLATELET COUNT, AUTOMATED 160 10^3/uL (150-450); RED BLOOD COUNT 3.23 10^6/uL (4.00-5.40); WHITE BLOOD COUNT 9.4 10^3/uL (4.0-10.0)
[2022-02-25 05:16] LABS: BLOOD UREA NITROGEN 43 MG/DL (7-18); CHLORIDE LEVEL 94 MEQ/L (98-107); CREATININE FOR GFR 1.54 MG/DL (0.55-1.30); GLOMERULAR FILTRATION RATE 34.7 (>39); GLUCOSE, FASTING 115 MG/DL (70-100); MAGNESIUM LEVEL 1.9 MG/DL (1.8-2.4); POTASSIUM SERUM 4.8 MEQ/L (3.5-5.1); SODIUM LEVEL 141 MEQ/L (136-145)
[2022-02-25 05:17] LABS: CARBON DIOXIDE LEVEL 50 MEQ/L (21-32)
[2022-02-25] MEDS: SPIRONOLACTONE 12.5MG PER 1/2 TABLET PO SCH (08:01)
[2022-02-25] MEDS: APIXABAN 5 MG TAB (ELIQUIS) PO SCH ×2 (08:01→20:19)
[2022-02-25] MEDS: METOPROLOL TART 25 MG TABLET PO SCH ×2 (08:02→20:24)
[2022-02-25] MEDS: POTASSIUM CHLORIDE 10MEQ SR TABLET PO SCH (08:02)
[2022-02-25] MEDS ORDERED: PERCOCET 5MG/325MG TAB PO ONE (09:30)
[2022-02-25] MEDS ORDERED: BISACODYL 10 MG SUPP PR PRN (14:50)
[2022-02-25] MEDS ORDERED: SENOKOT S TAB PO PRN (14:50)
[2022-02-25] MEDS ORDERED: ONDANSETRON 4MG 2ML VIAL IV ONE (15:00)
[2022-02-25] MEDS ORDERED: ONDANSETRON 4MG 2ML VIAL IV PRN (17:00)
[2022-02-25] MEDS: VITAMIN D 1,000 INTERNATIONAL UNITS TABLET PO SCH (20:19)
[2022-02-25] MEDS: ASCORBIC ACID 500 MG TAB PO SCH (20:19)
[2022-02-26 05:40] LABS: HEMATOCRIT 35.1 % (36.0-47.0); HEMOGLOBIN 10.4 g/dl (12.0-15.5); MEAN CORPUSCULAR HEMOGLOBIN 30.7 pg (27.0-33.0); MEAN CORPUSCULAR HGB CONC 29.6 g/dl (32.0-36.5); MEAN CORPUSCULAR VOLUME 103.5 fl (80.0-96.0); PLATELET COUNT, AUTOMATED 158 10^3/uL (150-450); RED BLOOD COUNT 3.39 10^6/uL (4.00-5.40); WHITE BLOOD COUNT 9.8 10^3/uL (4.0-10.0)
[2022-02-26 06:00] VITALS: BP 110/74
[2022-02-26] MEDS: FUROSEMIDE 100MG/10ML VIAL (J1940) IV SCH (06:01)
[2022-02-26 06:28] LABS: CALCIUM LEVEL 9.2 MG/DL (8.8-10.2); CREATININE FOR GFR 1.34 MG/DL (0.55-1.30); GLOMERULAR FILTRATION RATE 40.7 (>39); POTASSIUM SERUM 4.4 MEQ/L (3.5-5.1)
[2022-02-26] MEDS: MIDODRINE 5 MG TAB PO SCH ×3 (08:00→17:15)
[2022-02-26] MEDS: POTASSIUM CHLORIDE 10MEQ SR TABLET PO SCH (09:00)
[2022-02-26] MEDS ORDERED: PROMETHAZINE 25MG/ML 1ML VIAL IV ONE (09:05)
[2022-02-26] MEDS ORDERED: PANTOPRAZOLE 40MG VIAL IV ONE (09:05)
[2022-02-26] MEDS ORDERED: PERCOCET 5MG/325MG TAB PO ONE (09:05)
[2022-02-26] MEDS: APIXABAN 5 MG TAB (ELIQUIS) PO SCH ×2 (09:19→20:48)
[2022-02-26] MEDS ORDERED: GI COCKTAIL 50ML BTL(HYOSCYAMINE/MAALOX/LIDOCAINE VISCOUS)(1:3:1) PO ONE (10:00)
[2022-02-26] MEDS: METOPROLOL TART 25 MG TABLET PO SCH ×2 (10:12→20:46)
[2022-02-26] MEDS: FUROSEMIDE 40MG/4ML VIAL (J1940) IV SCH ×4 (10:21→20:41)
[2022-02-26] MEDS: LIDOCAINE 5% (LIDODERM) PATCH TD SCH (10:22)
[2022-02-26 12:33] LABS: ALBUMIN 3.1 GM/DL (3.2-5.2); CALCIUM LEVEL 9.4 MG/DL (8.8-10.2); CREATININE FOR GFR 1.33 MG/DL (0.55-1.30); GLOMERULAR FILTRATION RATE 41.1 (>39); MAGNESIUM LEVEL 1.9 MG/DL (1.8-2.4); POTASSIUM SERUM 4.4 MEQ/L (3.5-5.1); TOTAL PROTEIN 6.5 GM/DL (6.4-8.2)
[2022-02-26 14:00] VITALS: BP 126/74
[2022-02-26 18:53] LABS: ALT/SGPT 8 U/L (12-78); BILIRUBIN,TOTAL 0.8 MG/DL (0.2-1.0); BLOOD UREA NITROGEN 42 MG/DL (7-18); CALCIUM LEVEL 8.8 MG/DL (8.8-10.2); CARBON DIOXIDE LEVEL 51 MEQ/L (21-32); CHLORIDE LEVEL 91 MEQ/L (98-107); CREATININE FOR GFR 1.35 MG/DL (0.55-1.30); GLOMERULAR FILTRATION RATE 40.4 (>39); GLUCOSE, FASTING 106 MG/DL (70-100); MAGNESIUM LEVEL 1.6 MG/DL (1.8-2.4); SODIUM LEVEL 141 MEQ/L (136-145); TOTAL PROTEIN 6.6 GM/DL (6.4-8.2)
[2022-02-26] MEDS: VITAMIN D 1,000 INTERNATIONAL UNITS TABLET PO SCH (20:48)
[2022-02-26] MEDS: ASCORBIC ACID 500 MG TAB PO SCH (20:48)
[2022-02-26] MEDS: PERCOCET 5MG/325MG TAB PO PRN (20:48)
[2022-02-26] MEDS ORDERED: **NOTE PATIENT COMMENT** MISC XX SCH (21:00)
[2022-02-26 22:00] VITALS: BP 122/82
[2022-02-27] MEDS: FUROSEMIDE 40MG/4ML VIAL (J1940) IV SCH ×4 (01:33→13:25)
[2022-02-27 02:10] VITALS: O2SAT 92
[2022-02-27 03:45] LABS: ALT/SGPT 6 U/L (12-78); BILIRUBIN,TOTAL 0.8 MG/DL (0.2-1.0); BLOOD UREA NITROGEN 40 MG/DL (7-18); CALCIUM LEVEL 8.4 MG/DL (8.8-10.2); CARBON DIOXIDE LEVEL 54 MEQ/L (21-32); CHLORIDE LEVEL 90 MEQ/L (98-107); CREATININE FOR GFR 1.45 MG/DL (0.55-1.30); GLOMERULAR FILTRATION RATE 37.2 (>39); GLUCOSE, FASTING 98 MG/DL (70-100); MAGNESIUM LEVEL 1.7 MG/DL (1.8-2.4); POTASSIUM SERUM 4.1 MEQ/L (3.5-5.1); SODIUM LEVEL 142 MEQ/L (136-145)
[2022-02-27] MEDS: PERCOCET 5MG/325MG TAB PO PRN ×2 (05:06→13:26)
[2022-02-27 06:00] VITALS: BP 110/82
[2022-02-27 07:05] LABS: HEMATOCRIT 33.6 % (36.0-47.0); HEMOGLOBIN 9.9 g/dl (12.0-15.5); MEAN CORPUSCULAR HEMOGLOBIN 30.3 pg (27.0-33.0); MEAN CORPUSCULAR HGB CONC 29.5 g/dl (32.0-36.5); MEAN CORPUSCULAR VOLUME 102.8 fl (80.0-96.0); PLATELET COUNT, AUTOMATED 148 10^3/uL (150-450); RED BLOOD COUNT 3.27 10^6/uL (4.00-5.40); WHITE BLOOD COUNT 10.3 10^3/uL (4.0-10.0)
[2022-02-27 07:45] LABS: CALCIUM LEVEL 9.5 MG/DL (8.8-10.2); CREATININE FOR GFR 1.36 MG/DL (0.55-1.30); MAGNESIUM LEVEL 1.8 MG/DL (1.8-2.4); POTASSIUM SERUM 3.8 MEQ/L (3.5-5.1)
[2022-02-27] MEDS: MIDODRINE 5 MG TAB PO SCH ×3 (09:01→17:18)
[2022-02-27] MEDS: POTASSIUM CHLORIDE 10MEQ SR TABLET PO SCH (09:01)
[2022-02-27] MEDS: APIXABAN 5 MG TAB (ELIQUIS) PO SCH ×2 (09:02→20:19)
[2022-02-27] MEDS: ACETAMINOPHEN TAB 650MG DOSE (2X325MG) PO PRN (09:02)
[2022-02-27] MEDS: METOPROLOL TART 25 MG TABLET PO SCH ×2 (09:02→21:00)
[2022-02-27] MEDS: LIDOCAINE 5% (LIDODERM) PATCH TD SCH ×2 (09:03→20:19)
[2022-02-27 12:49] LABS: BLOOD UREA NITROGEN 44 MG/DL (7-18); CALCIUM LEVEL 8.5 MG/DL (8.8-10.2); CARBON DIOXIDE LEVEL 53 MEQ/L (21-32); CHLORIDE LEVEL 89 MEQ/L (98-107); CREATININE FOR GFR 1.51 MG/DL (0.55-1.30); GLOMERULAR FILTRATION RATE 35.5 (>39); GLUCOSE, FASTING 134 MG/DL (70-100); MAGNESIUM LEVEL 1.6 MG/DL (1.8-2.4); POTASSIUM SERUM 4.2 MEQ/L (3.5-5.1); SODIUM LEVEL 141 MEQ/L (136-145)
[2022-02-27 14:00] VITALS: BP 121/71
[2022-02-27] MEDS ORDERED: MAG SULF 1GM/100ML (MAG RUN) 1 GM in IV 1 EA IV ONE (18:00)
[2022-02-27 18:30] LABS: CALCIUM LEVEL 9.2 MG/DL (8.8-10.2); CREATININE FOR GFR 1.55 MG/DL (0.55-1.30); GLOMERULAR FILTRATION RATE 34.4 (>39); MAGNESIUM LEVEL 1.7 MG/DL (1.8-2.4); POTASSIUM SERUM 4.4 MEQ/L (3.5-5.1)
[2022-02-27] MEDS: VITAMIN D 1,000 INTERNATIONAL UNITS TABLET PO SCH (20:19)
[2022-02-27] MEDS: ASCORBIC ACID 500 MG TAB PO SCH (20:19)
[2022-02-27] MEDS: MAG SULF 1GM/100ML (MAG RUN) 1 GM in IV 1 EA IV SCH ×2 (21:02→22:23)
[2022-02-27 22:00] VITALS: BP 124/62
[2022-02-27] MEDS: FUROSEMIDE injection 250 MG in D5W 225 ML IV SCH (23:13)
[2022-02-28] VITALS (7 sets, daily range): BP systolic 117–134; BP diastolic 54–63; O2SAT 95–99
[2022-02-28 00:40] LABS: BLOOD UREA NITROGEN 44 MG/DL (7-18); CALCIUM LEVEL 8.7 MG/DL (8.8-10.2); CARBON DIOXIDE LEVEL 54 MEQ/L (21-32); CHLORIDE LEVEL 87 MEQ/L (98-107); CREATININE FOR GFR 1.49 MG/DL (0.55-1.30); GLUCOSE, FASTING 121 MG/DL (70-100); POTASSIUM SERUM 4.1 MEQ/L (3.5-5.1); SODIUM LEVEL 139 MEQ/L (136-145)
[2022-02-28] MEDS: PERCOCET 5MG/325MG TAB PO PRN ×2 (03:34→20:24)
[2022-02-28 06:28] LABS: HEMOGLOBIN 9.8 g/dl (12.0-15.5); MEAN CORPUSCULAR HEMOGLOBIN 30.7 pg (27.0-33.0); MEAN CORPUSCULAR HGB CONC 29.7 g/dl (32.0-36.5); MEAN CORPUSCULAR VOLUME 103.4 fl (80.0-96.0); PLATELET COUNT, AUTOMATED 142 10^3/uL (150-450); RED BLOOD COUNT 3.19 10^6/uL (4.00-5.40); WHITE BLOOD COUNT 10.4 10^3/uL (4.0-10.0)
[2022-02-28 07:09] LABS: CREATININE FOR GFR 1.43 MG/DL (0.55-1.30); GLOMERULAR FILTRATION RATE 37.8 (>39); MAGNESIUM LEVEL 2.8 MG/DL (1.8-2.4)
[2022-02-28] MEDS ORDERED: ACETAMINOPHEN TAB 650MG DOSE (2X325MG) PO ONE (08:55)
[2022-02-28] MEDS: MIDODRINE 5 MG TAB PO SCH (09:11)
[2022-02-28] MEDS: POTASSIUM CHLORIDE 10MEQ SR TABLET PO SCH (09:12)
[2022-02-28] MEDS: APIXABAN 5 MG TAB (ELIQUIS) PO SCH ×2 (09:12→20:25)
[2022-02-28] MEDS: METOPROLOL TART 25 MG TABLET PO SCH ×2 (09:13→20:25)
[2022-02-28] MEDS: **NOTE PATIENT COMMENT** MISC XX SCH (09:13)
[2022-02-28] MEDS: LIDOCAINE 5% (LIDODERM) PATCH TD SCH (20:23)
[2022-02-28] MEDS: FUROSEMIDE injection 250 MG in D5W 225 ML IV SCH (20:23)
[2022-02-28] MEDS: ASCORBIC ACID 500 MG TAB PO SCH (20:23)
[2022-02-28] MEDS: VITAMIN D 1,000 INTERNATIONAL UNITS TABLET PO SCH (20:23)
[2022-03-01] MEDS: ACETAMINOPHEN TAB 650MG DOSE (2X325MG) PO PRN (00:54)
[2022-03-01] MEDS: PERCOCET 5MG/325MG TAB PO PRN ×2 (04:58→18:26)
[2022-03-01 06:00] VITALS: BP 118/63
[2022-03-01 06:11] LABS: HEMATOCRIT 31.9 % (36.0-47.0); HEMOGLOBIN 9.5 g/dl (12.0-15.5); MEAN CORPUSCULAR HEMOGLOBIN 30.5 pg (27.0-33.0); MEAN CORPUSCULAR HGB CONC 29.8 g/dl (32.0-36.5); MEAN CORPUSCULAR VOLUME 102.6 fl (80.0-96.0); PLATELET COUNT, AUTOMATED 142 10^3/uL (150-450); RED BLOOD COUNT 3.11 10^6/uL (4.00-5.40); WHITE BLOOD COUNT 10.1 10^3/uL (4.0-10.0)
[2022-03-01 06:50] LABS: CALCIUM LEVEL 8.4 MG/DL (8.8-10.2); CREATININE FOR GFR 1.34 MG/DL (0.55-1.30); GLOMERULAR FILTRATION RATE 40.7 (>39); POTASSIUM SERUM 3.6 MEQ/L (3.5-5.1)
[2022-03-01] MEDS: **NOTE PATIENT COMMENT** MISC XX SCH (09:00)
[2022-03-01] MEDS: APIXABAN 5 MG TAB (ELIQUIS) PO SCH ×2 (09:10→20:33)
[2022-03-01] MEDS: POTASSIUM CHLORIDE 10MEQ SR TABLET PO SCH (09:12)
[2022-03-01] MEDS: METOPROLOL TART 25 MG TABLET PO SCH ×2 (09:12→20:33)
[2022-03-01 14:00] VITALS: BP 123/55
[2022-03-01] MEDS: diazePAM 5MG TABLET PO PRN (15:31)
[2022-03-01] MEDS: VITAMIN D 1,000 INTERNATIONAL UNITS TABLET PO SCH (20:33)
[2022-03-01] MEDS: ASCORBIC ACID 500 MG TAB PO SCH (20:33)
[2022-03-01] MEDS: FUROSEMIDE injection 250 MG in D5W 225 ML IV SCH (20:34)
[2022-03-01] MEDS: LIDOCAINE 5% (LIDODERM) PATCH TD SCH (20:47)
[2022-03-01 22:00] VITALS: BP 126/71
[2022-03-02 00:02] VITALS: O2SAT 7
[2022-03-02 06:00] VITALS: BP 143/79
[2022-03-02 06:29] LABS: HEMATOCRIT 34.9 % (36.0-47.0); HEMOGLOBIN 10.6 g/dl (12.0-15.5); MEAN CORPUSCULAR HEMOGLOBIN 30.5 pg (27.0-33.0); MEAN CORPUSCULAR HGB CONC 30.4 g/dl (32.0-36.5); MEAN CORPUSCULAR VOLUME 100.6 fl (80.0-96.0); PLATELET COUNT, AUTOMATED 148 10^3/uL (150-450); RED BLOOD COUNT 3.47 10^6/uL (4.00-5.40); WHITE BLOOD COUNT 9.5 10^3/uL (4.0-10.0)
[2022-03-02 07:29] LABS: CALCIUM LEVEL 9.6 MG/DL (8.8-10.2); CREATININE FOR GFR 1.17 MG/DL (0.55-1.30); GLOMERULAR FILTRATION RATE 47.6 (>39); POTASSIUM SERUM 3.6 MEQ/L (3.5-5.1)
[2022-03-02] MEDS: PERCOCET 5MG/325MG TAB PO PRN ×2 (08:37→20:11)
[2022-03-02] MEDS: METOPROLOL TART 25 MG TABLET PO SCH ×2 (08:39→20:10)
[2022-03-02] MEDS: APIXABAN 5 MG TAB (ELIQUIS) PO SCH ×2 (08:39→20:11)
[2022-03-02] MEDS: TORSEMIDE 20 MG TAB PO SCH ×2 (08:39→18:01)
[2022-03-02] MEDS: POTASSIUM CHLORIDE 10MEQ SR TABLET PO SCH (08:39)
[2022-03-02] MEDS: **NOTE PATIENT COMMENT** MISC XX SCH (09:00)
[2022-03-02 14:00] VITALS: BP 121/61
[2022-03-02] MEDS: diazePAM 5MG TABLET PO PRN (14:05)
[2022-03-02] MEDS: LIDOCAINE 5% (LIDODERM) PATCH TD SCH (20:10)
[2022-03-02 22:00] VITALS: BP 131/68
[2022-03-03 00:04] VITALS: O2SAT 97
[2022-03-03 06:00] VITALS: BP 136/82
[2022-03-03] MEDS: PERCOCET 5MG/325MG TAB PO PRN ×2 (06:31→16:02)
[2022-03-03] MEDS: **NOTE PATIENT COMMENT** MISC XX SCH (09:00)
[2022-03-03] MEDS: METOPROLOL TART 25 MG TABLET PO SCH ×2 (09:00→20:56)
[2022-03-03] MEDS: POTASSIUM CHLORIDE 10MEQ SR TABLET PO SCH (09:17)
[2022-03-03] MEDS: APIXABAN 5 MG TAB (ELIQUIS) PO SCH ×2 (09:18→20:56)
[2022-03-03] MEDS: TORSEMIDE 20 MG TAB PO SCH ×2 (09:18→16:02)
[2022-03-03] MEDS: diazePAM 5MG TABLET PO PRN (09:18)
[2022-03-03 14:00] VITALS: BP 108/61
[2022-03-03] MEDS: MOM 30ML SUSPENSION UDC PO PRN (16:07)
[2022-03-03] MEDS: GI COCKTAIL 50ML BTL(HYOSCYAMINE/MAALOX/LIDOCAINE VISCOUS)(1:3:1) PO PRN (16:55)
[2022-03-03] MEDS: LIDOCAINE 5% (LIDODERM) PATCH TD SCH (20:56)
[2022-03-03 22:00] VITALS: BP 107/61
[2022-03-04] MEDS: PERCOCET 5MG/325MG TAB PO PRN ×2 (00:24→20:24)
[2022-03-04 06:00] VITALS: BP 109/66
[2022-03-04] MEDS: METOPROLOL TART 25 MG TABLET PO SCH ×2 (09:00→20:26)
[2022-03-04] MEDS: POTASSIUM CHLORIDE 10MEQ SR TABLET PO SCH (09:57)
[2022-03-04] MEDS: TORSEMIDE 20 MG TAB PO SCH ×2 (09:57→16:27)
[2022-03-04] MEDS: APIXABAN 5 MG TAB (ELIQUIS) PO SCH ×2 (09:57→20:18)
[2022-03-04] MEDS: ACETAMINOPHEN TAB 650MG DOSE (2X325MG) PO PRN (09:57)
[2022-03-04] MEDS: **NOTE PATIENT COMMENT** MISC XX SCH (09:59)
[2022-03-04 12:01] VITALS: O2SAT 95
[2022-03-04 14:00] VITALS: BP 111/68
[2022-03-04] MEDS: LIDOCAINE 5% (LIDODERM) PATCH TD SCH (20:19)
[2022-03-04 22:00] VITALS: BP 116/67
[2022-03-05] MEDS ORDERED: MORPHINE 2 MG/ML 1ML VIAL IV ONE (03:00)
[2022-03-05] MEDS ORDERED: oxyCODONE 5MG TAB PO ONE (04:00)
[2022-03-05] MEDS: PERCOCET 5MG/325MG TAB PO PRN ×3 (04:32→22:52)
[2022-03-05 06:00] VITALS: BP 122/63
[2022-03-05] MEDS: POTASSIUM CHLORIDE 10MEQ SR TABLET PO SCH (08:59)
[2022-03-05] MEDS: APIXABAN 5 MG TAB (ELIQUIS) PO SCH ×2 (08:59→20:09)
[2022-03-05] MEDS: METOPROLOL TART 25 MG TABLET PO SCH ×2 (09:00→20:09)
[2022-03-05] MEDS: TORSEMIDE 20 MG TAB PO SCH ×2 (09:01→17:06)
[2022-03-05] MEDS: **NOTE PATIENT COMMENT** MISC XX SCH (09:03)
[2022-03-05] MEDS: diazePAM 5MG TABLET PO PRN (09:08)
[2022-03-05 14:00] VITALS: BP 140/70
[2022-03-05] MEDS: LIDOCAINE 5% (LIDODERM) PATCH TD SCH (20:07)
[2022-03-05] MEDS: MOM 30ML SUSPENSION UDC PO PRN (20:08)
[2022-03-05 21:50] VITALS: BP 115/66
[2022-03-05 22:00] VITALS: BP 115/66
[2022-03-06 06:00] VITALS: BP 124/67
[2022-03-06] MEDS: MOM 30ML SUSPENSION UDC PO PRN ×2 (08:43→19:42)
[2022-03-06] MEDS: TORSEMIDE 20 MG TAB PO SCH ×2 (08:43→17:47)
[2022-03-06] MEDS: APIXABAN 5 MG TAB (ELIQUIS) PO SCH ×2 (08:43→20:04)
[2022-03-06] MEDS: POTASSIUM CHLORIDE 10MEQ SR TABLET PO SCH (08:43)
[2022-03-06] MEDS: METOPROLOL TART 25 MG TABLET PO SCH ×2 (08:44→20:05)
[2022-03-06] MEDS: PERCOCET 5MG/325MG TAB PO PRN ×2 (08:44→22:54)
[2022-03-06] MEDS: **NOTE PATIENT COMMENT** MISC XX SCH (08:46)
[2022-03-06 14:00] VITALS: BP 120/60
[2022-03-06] MEDS: LIDOCAINE 5% (LIDODERM) PATCH TD SCH (19:42)
[2022-03-06 22:00] VITALS: BP 128/67
[2022-03-07 06:09] VITALS: BP 111/58
[2022-03-07] MEDS: METOPROLOL TART 25 MG TABLET PO SCH ×2 (08:46→20:24)
[2022-03-07] MEDS: TORSEMIDE 20 MG TAB PO SCH ×2 (08:52→16:43)
[2022-03-07] MEDS: POTASSIUM CHLORIDE 10MEQ SR TABLET PO SCH (08:52)
[2022-03-07] MEDS: APIXABAN 5 MG TAB (ELIQUIS) PO SCH ×2 (08:52→20:25)
[2022-03-07] MEDS: PERCOCET 5MG/325MG TAB PO PRN ×2 (08:56→20:23)
[2022-03-07] MEDS: **NOTE PATIENT COMMENT** MISC XX SCH (08:59)
[2022-03-07] MEDS: ACETAMINOPHEN TAB 650MG DOSE (2X325MG) PO PRN (16:43)
[2022-03-07] MEDS: LIDOCAINE 5% (LIDODERM) PATCH TD SCH (20:25)
[2022-03-08] MEDS: PERCOCET 5MG/325MG TAB PO PRN ×3 (00:45→16:34)
[2022-03-08 06:00] VITALS: BP 119/58
[2022-03-08] MEDS: MOM 30ML SUSPENSION UDC PO PRN (09:09)
[2022-03-08] MEDS: POTASSIUM CHLORIDE 10MEQ SR TABLET PO SCH (09:10)
[2022-03-08] MEDS: TORSEMIDE 20 MG TAB PO SCH ×2 (09:10→16:35)
[2022-03-08] MEDS: APIXABAN 5 MG TAB (ELIQUIS) PO SCH ×2 (09:10→20:24)
[2022-03-08] MEDS: **NOTE PATIENT COMMENT** MISC XX SCH (09:11)
[2022-03-08] MEDS: METOPROLOL TART 25 MG TABLET PO SCH ×2 (09:11→20:24)
[2022-03-08] MEDS: diazePAM 5MG TABLET PO PRN (10:46)
[2022-03-08] MEDS: LIDOCAINE 5% (LIDODERM) PATCH TD SCH (20:25)
[2022-03-09] MEDS: PERCOCET 5MG/325MG TAB PO PRN ×2 (00:25→18:26)
[2022-03-09 06:00] VITALS: BP 124/63
[2022-03-09] MEDS: diazePAM 5MG TABLET PO PRN (09:36)
[2022-03-09] MEDS: ACETAMINOPHEN TAB 650MG DOSE (2X325MG) PO PRN (09:36)
[2022-03-09] MEDS: APIXABAN 5 MG TAB (ELIQUIS) PO SCH ×2 (09:36→21:29)
[2022-03-09] MEDS: TORSEMIDE 20 MG TAB PO SCH ×2 (09:37→18:26)
[2022-03-09] MEDS: POTASSIUM CHLORIDE 10MEQ SR TABLET PO SCH (09:37)
[2022-03-09] MEDS: **NOTE PATIENT COMMENT** MISC XX SCH (09:40)
[2022-03-09] MEDS: METOPROLOL TART 25 MG TABLET PO SCH ×2 (09:41→21:00)
[2022-03-09 20:27] VITALS: BP 107/54
[2022-03-09] MEDS: LIDOCAINE 5% (LIDODERM) PATCH TD SCH (21:29)
[2022-03-10] MEDS: PERCOCET 5MG/325MG TAB PO PRN ×3 (02:55→18:25)
[2022-03-10 04:17] VITALS: BP 108/53
[2022-03-10] MEDS: METOPROLOL TART 25 MG TABLET PO SCH ×2 (09:00→20:05)
[2022-03-10] MEDS: TORSEMIDE 20 MG TAB PO SCH ×2 (09:19→18:19)
[2022-03-10] MEDS: APIXABAN 5 MG TAB (ELIQUIS) PO SCH ×2 (09:19→20:05)
[2022-03-10] MEDS: POTASSIUM CHLORIDE 10MEQ SR TABLET PO SCH (09:20)
[2022-03-10] MEDS: **NOTE PATIENT COMMENT** MISC XX SCH (09:21)
[2022-03-10] MEDS: LIDOCAINE 5% (LIDODERM) PATCH TD SCH (20:05)
[2022-03-11] MEDS: diazePAM 5MG TABLET PO PRN (01:43)
[2022-03-11 06:00] VITALS: BP 116/56
[2022-03-11] MEDS: MOM 30ML SUSPENSION UDC PO PRN (06:56)
[2022-03-11] MEDS: PERCOCET 5MG/325MG TAB PO PRN ×3 (06:57→21:54)
[2022-03-11] MEDS: **NOTE PATIENT COMMENT** MISC XX SCH (08:50)
[2022-03-11] MEDS: APIXABAN 5 MG TAB (ELIQUIS) PO SCH ×2 (08:55→20:27)
[2022-03-11] MEDS: POTASSIUM CHLORIDE 10MEQ SR TABLET PO SCH (08:55)
[2022-03-11] MEDS: TORSEMIDE 20 MG TAB PO SCH ×2 (08:55→17:09)
[2022-03-11] MEDS: METOPROLOL TART 25 MG TABLET PO SCH ×2 (08:56→20:27)
[2022-03-11] MEDS: LIDOCAINE 5% (LIDODERM) PATCH TD SCH (20:29)
[2022-03-12 06:00] VITALS: BP 118/63
[2022-03-12] MEDS: METOPROLOL TART 25 MG TABLET PO SCH ×2 (09:00→21:00)
[2022-03-12 09:50] VITALS: BP 118/76
[2022-03-12] MEDS: POTASSIUM CHLORIDE 10MEQ SR TABLET PO SCH (09:52)
[2022-03-12] MEDS: APIXABAN 5 MG TAB (ELIQUIS) PO SCH ×2 (09:52→21:35)
[2022-03-12] MEDS: TORSEMIDE 20 MG TAB PO SCH ×2 (09:52→17:36)
[2022-03-12] MEDS: **NOTE PATIENT COMMENT** MISC XX SCH (09:53)
[2022-03-12] MEDS: PERCOCET 5MG/325MG TAB PO PRN ×2 (14:16→21:46)
[2022-03-12] MEDS: LIDOCAINE 5% (LIDODERM) PATCH TD SCH (21:35)
[2022-03-13] MEDS: PERCOCET 5MG/325MG TAB PO PRN ×3 (02:31→23:29)
[2022-03-13 06:00] VITALS: BP 151/59
[2022-03-13 08:58] VITALS: BP 116/66
[2022-03-13] MEDS: METOPROLOL TART 25 MG TABLET PO SCH ×2 (09:00→20:51)
[2022-03-13] MEDS: POTASSIUM CHLORIDE 10MEQ SR TABLET PO SCH (09:02)
[2022-03-13] MEDS: TORSEMIDE 20 MG TAB PO SCH ×2 (09:02→17:08)
[2022-03-13] MEDS: APIXABAN 5 MG TAB (ELIQUIS) PO SCH ×2 (09:03→20:51)
[2022-03-13] MEDS: **NOTE PATIENT COMMENT** MISC XX SCH (09:03)
[2022-03-13] MEDS: diazePAM 5MG TABLET PO PRN (12:11)
[2022-03-13] MEDS: LIDOCAINE 5% (LIDODERM) PATCH TD SCH (20:54)
[2022-03-14] MEDS: PERCOCET 5MG/325MG TAB PO PRN ×3 (05:33→23:02)
[2022-03-14 06:25] VITALS: BP 118/69
[2022-03-14] MEDS: **NOTE PATIENT COMMENT** MISC XX SCH (09:00)
[2022-03-14] MEDS: POTASSIUM CHLORIDE 10MEQ SR TABLET PO SCH (09:26)
[2022-03-14] MEDS: APIXABAN 5 MG TAB (ELIQUIS) PO SCH ×2 (09:26→20:16)
[2022-03-14] MEDS: TORSEMIDE 20 MG TAB PO SCH ×2 (09:27→16:23)
[2022-03-14] MEDS: METOPROLOL TART 25 MG TABLET PO SCH ×2 (09:28→20:16)
[2022-03-14] MEDS: LIDOCAINE 5% (LIDODERM) PATCH TD SCH (20:17)
[2022-03-15 06:00] VITALS: BP 122/62
[2022-03-15] MEDS: diazePAM 5MG TABLET PO PRN (06:21)
[2022-03-15] MEDS: METOPROLOL TART 25 MG TABLET PO SCH ×2 (08:07→20:34)
[2022-03-15] MEDS: TORSEMIDE 20 MG TAB PO SCH ×2 (09:48→18:47)
[2022-03-15] MEDS: **NOTE PATIENT COMMENT** MISC XX SCH (09:48)
[2022-03-15] MEDS: POTASSIUM CHLORIDE 10MEQ SR TABLET PO SCH (09:48)
[2022-03-15] MEDS: APIXABAN 5 MG TAB (ELIQUIS) PO SCH ×2 (09:48→20:30)
[2022-03-15] MEDS: MOM 30ML SUSPENSION UDC PO PRN (09:54)
[2022-03-15] MEDS: PERCOCET 5MG/325MG TAB PO PRN ×2 (14:30→20:31)
[2022-03-15] MEDS: LIDOCAINE 5% (LIDODERM) PATCH TD SCH (20:30)
[2022-03-15] MEDS: DIMETHICONE 2% OINTMENT(VANICREAM) 70GM TUBE TOP SCH (20:35)
[2022-03-16] MEDS: PERCOCET 5MG/325MG TAB PO PRN ×3 (00:32→21:54)
[2022-03-16 06:02] VITALS: BP 114/59
[2022-03-16] MEDS: diazePAM 5MG TABLET PO PRN (09:20)
[2022-03-16] MEDS: TORSEMIDE 20 MG TAB PO SCH ×2 (10:39→17:05)
[2022-03-16] MEDS: APIXABAN 5 MG TAB (ELIQUIS) PO SCH ×2 (10:41→21:54)
[2022-03-16] MEDS: DIMETHICONE 2% OINTMENT(VANICREAM) 70GM TUBE TOP SCH ×2 (10:41→21:55)
[2022-03-16] MEDS: POTASSIUM CHLORIDE 10MEQ SR TABLET PO SCH (10:41)
[2022-03-16] MEDS: **NOTE PATIENT COMMENT** MISC XX SCH (10:42)
[2022-03-16] MEDS: METOPROLOL TART 25 MG TABLET PO SCH ×2 (10:46→21:54)
[2022-03-16] MEDS: LIDOCAINE 5% (LIDODERM) PATCH TD SCH (21:53)
[2022-03-17] MEDS: PERCOCET 5MG/325MG TAB PO PRN ×4 (04:13→23:07)
[2022-03-17 06:00] VITALS: BP 127/67
[2022-03-17] MEDS: APIXABAN 5 MG TAB (ELIQUIS) PO SCH ×2 (08:00→20:09)
[2022-03-17] MEDS: POTASSIUM CHLORIDE 10MEQ SR TABLET PO SCH (08:01)
[2022-03-17] MEDS: TORSEMIDE 20 MG TAB PO SCH ×2 (08:01→17:18)
[2022-03-17] MEDS: METOPROLOL TART 25 MG TABLET PO SCH ×2 (08:03→20:09)
[2022-03-17] MEDS: DIMETHICONE 2% OINTMENT(VANICREAM) 70GM TUBE TOP SCH ×2 (08:08→20:10)
[2022-03-17] MEDS: **NOTE PATIENT COMMENT** MISC XX SCH (08:09)
[2022-03-17] MEDS: LIDOCAINE 5% (LIDODERM) PATCH TD SCH (20:17)
[2022-03-18 01:10] VITALS: BP 115/69
[2022-03-18] MEDS: GI COCKTAIL 50ML BTL(HYOSCYAMINE/MAALOX/LIDOCAINE VISCOUS)(1:3:1) PO PRN (02:08)
[2022-03-18] MEDS ORDERED: CALCIUM CARBONATE 500 MG CHEW U/D PO PRN (02:15)
[2022-03-18 02:23] LABS: BASO % 0.3 % (0.0-1.0); EOS # 0.2 10^3/uL (0.0-0.5); HEMATOCRIT 31.6 % (36.0-47.0); HEMOGLOBIN 9.4 g/dl (12.0-15.5); LYMPH # 0.7 10^3/uL (1.5-5.0); LYMPH % 9.3 % (24.0-44.0); MEAN CORPUSCULAR HEMOGLOBIN 30.8 pg (27.0-33.0); MEAN CORPUSCULAR HGB CONC 29.7 g/dl (32.0-36.5); MEAN CORPUSCULAR VOLUME 103.6 fl (80.0-96.0); MONO # 0.6 10^3/uL (0.0-0.8); MONO % 7.1 % (2.0-8.0); NEUTROPHILS # 6.4 10^3/uL (1.5-8.5); NEUTROPHILS % 79.9 % (36.0-66.0); PLATELET COUNT, AUTOMATED 130 10^3/uL (150-450); RED BLOOD COUNT 3.05 10^6/uL (4.00-5.40)
[2022-03-18 02:48] LABS: CK-MB VALUE MASS < 1.0 NG/ML (<3.6); CPK CREATINE PHOSPHOKINASE 23 U/L (26-192); MB/CK RELATIVE INDEX 4.35 (< OR =4)
[2022-03-18 02:57] LABS: CALCIUM LEVEL 8.8 MG/DL (8.8-10.2); CREATININE FOR GFR 1.24 MG/DL (0.55-1.30); GLOMERULAR FILTRATION RATE 44.5 (>39); POTASSIUM SERUM 4.3 MEQ/L (3.5-5.1)
[2022-03-18] MEDS: PERCOCET 5MG/325MG TAB PO PRN ×3 (05:20→17:23)
[2022-03-18 05:22] VITALS: BP 116/68
[2022-03-18] MEDS: **NOTE PATIENT COMMENT** MISC XX SCH (09:59)
[2022-03-18] MEDS: DIMETHICONE 2% OINTMENT(VANICREAM) 70GM TUBE TOP SCH ×2 (09:59→21:18)
[2022-03-18] MEDS: METOPROLOL TART 25 MG TABLET PO SCH ×3 (09:59→21:21)
[2022-03-18] MEDS: APIXABAN 5 MG TAB (ELIQUIS) PO SCH ×2 (10:01→21:17)
[2022-03-18] MEDS: POTASSIUM CHLORIDE 10MEQ SR TABLET PO SCH (10:01)
[2022-03-18] MEDS: TORSEMIDE 20 MG TAB PO SCH ×2 (10:02→17:22)
[2022-03-18] MEDS ORDERED: MAALOX 30 ML SUSP *UDC PO PRN (11:00)
[2022-03-18] MEDS: LIDOCAINE 5% (LIDODERM) PATCH TD SCH (21:18)
[2022-03-19] MEDS: PERCOCET 5MG/325MG TAB PO PRN ×4 (00:54→20:42)
[2022-03-19 06:13] VITALS: BP 125/74
[2022-03-19] MEDS: POTASSIUM CHLORIDE 10MEQ SR TABLET PO SCH (08:12)
[2022-03-19] MEDS: TORSEMIDE 20 MG TAB PO SCH ×2 (08:12→17:00)
[2022-03-19] MEDS: APIXABAN 5 MG TAB (ELIQUIS) PO SCH ×2 (08:13→20:41)
[2022-03-19] MEDS: METOPROLOL TART 25 MG TABLET PO SCH ×2 (08:13→21:00)
[2022-03-19] MEDS: DIMETHICONE 2% OINTMENT(VANICREAM) 70GM TUBE TOP SCH ×2 (08:13→21:00)
[2022-03-19] MEDS: **NOTE PATIENT COMMENT** MISC XX SCH (08:52)
[2022-03-19] MEDS: LIDOCAINE 5% (LIDODERM) PATCH TD SCH (20:41)
[2022-03-20] MEDS: PERCOCET 5MG/325MG TAB PO PRN ×5 (03:50→21:04)
[2022-03-20 06:03] VITALS: BP 103/76
[2022-03-20] MEDS: APIXABAN 5 MG TAB (ELIQUIS) PO SCH ×2 (08:01→21:01)
[2022-03-20] MEDS: TORSEMIDE 20 MG TAB PO SCH ×2 (08:01→16:11)
[2022-03-20] MEDS: POTASSIUM CHLORIDE 10MEQ SR TABLET PO SCH (08:01)
[2022-03-20] MEDS: DIMETHICONE 2% OINTMENT(VANICREAM) 70GM TUBE TOP SCH ×2 (08:03→21:03)
[2022-03-20] MEDS: METOPROLOL TART 25 MG TABLET PO SCH ×2 (08:04→21:22)
[2022-03-20] MEDS: **NOTE PATIENT COMMENT** MISC XX SCH (08:04)
[2022-03-20] MEDS: ALBUTEROL 90 MCG/ACT 8GM HFA INHALER INH PRN (11:58)
[2022-03-20] MEDS ORDERED: ALBUTEROL SULFATE 2.5 MG/0.5 ML INH NEB SOLN NEB PRN (12:05)
[2022-03-20] MEDS: SODIUM CHLORIDE 0.9% NASAL GEL 15GM (AYR) SCH ×2 (15:42→21:01)
[2022-03-20] MEDS: LIDOCAINE 5% (LIDODERM) PATCH TD SCH (21:01)
[2022-03-21] MEDS: PERCOCET 5MG/325MG TAB PO PRN ×4 (01:29→19:44)
[2022-03-21 06:00] VITALS: BP 118/70
[2022-03-21] MEDS: TORSEMIDE 20 MG TAB PO SCH ×2 (08:03→17:46)
[2022-03-21] MEDS: APIXABAN 5 MG TAB (ELIQUIS) PO SCH ×2 (08:03→19:44)
[2022-03-21] MEDS: METOPROLOL TART 25 MG TABLET PO SCH ×2 (08:04→19:57)
[2022-03-21] MEDS: DIMETHICONE 2% OINTMENT(VANICREAM) 70GM TUBE TOP SCH ×2 (08:05→19:45)
[2022-03-21] MEDS: SODIUM CHLORIDE 0.9% NASAL GEL 15GM (AYR) SCH ×2 (08:05→19:45)
[2022-03-21] MEDS: POTASSIUM CHLORIDE 10MEQ SR TABLET PO SCH (08:05)
[2022-03-21] MEDS: **NOTE PATIENT COMMENT** MISC XX SCH (08:06)
[2022-03-21] MEDS: LIDOCAINE 5% (LIDODERM) PATCH TD SCH (19:43)
[2022-03-22] MEDS: PERCOCET 5MG/325MG TAB PO PRN ×4 (00:46→21:21)
[2022-03-22 05:25] VITALS: BP 129/70
[2022-03-22] MEDS: diazePAM 5MG TABLET PO PRN (06:46)
[2022-03-22] MEDS: MOM 30ML SUSPENSION UDC PO PRN (08:14)
[2022-03-22] MEDS: METOPROLOL TART 25 MG TABLET PO SCH ×2 (08:14→20:19)
[2022-03-22] MEDS: POTASSIUM CHLORIDE 10MEQ SR TABLET PO SCH (08:14)
[2022-03-22] MEDS: TORSEMIDE 20 MG TAB PO SCH ×2 (08:15→16:45)
[2022-03-22] MEDS: **NOTE PATIENT COMMENT** MISC XX SCH (08:15)
[2022-03-22] MEDS: APIXABAN 5 MG TAB (ELIQUIS) PO SCH ×2 (08:15→20:17)
[2022-03-22] MEDS: DIMETHICONE 2% OINTMENT(VANICREAM) 70GM TUBE TOP SCH ×2 (08:17→21:00)
[2022-03-22] MEDS: SODIUM CHLORIDE 0.9% NASAL GEL 15GM (AYR) SCH ×2 (08:17→20:20)
[2022-03-22] MEDS: LIDOCAINE 5% (LIDODERM) PATCH TD SCH (21:00)
[2022-03-23] MEDS: PERCOCET 5MG/325MG TAB PO PRN ×4 (01:22→20:35)
[2022-03-23 06:00] VITALS: BP 110/60
[2022-03-23] MEDS: TORSEMIDE 20 MG TAB PO SCH ×2 (07:57→17:10)
[2022-03-23] MEDS: POTASSIUM CHLORIDE 10MEQ SR TABLET PO SCH (07:57)
[2022-03-23] MEDS: **NOTE PATIENT COMMENT** MISC XX SCH (07:58)
[2022-03-23] MEDS: APIXABAN 5 MG TAB (ELIQUIS) PO SCH ×2 (07:58→20:35)
[2022-03-23] MEDS: DIMETHICONE 2% OINTMENT(VANICREAM) 70GM TUBE TOP SCH ×2 (08:00→20:38)
[2022-03-23] MEDS: METOPROLOL TART 25 MG TABLET PO SCH ×2 (08:00→20:38)
[2022-03-23] MEDS: SODIUM CHLORIDE 0.9% NASAL GEL 15GM (AYR) SCH ×2 (08:00→20:38)
[2022-03-23] MEDS: LIDOCAINE 5% (LIDODERM) PATCH TD SCH (20:33)
[2022-03-24 05:17] VITALS: BP 145/88
[2022-03-24 06:11] LABS: BASO % 0.5 % (0.0-1.0); EOS # 0.3 10^3/uL (0.0-0.5); EOS % 4.2 % (0.0-3.0); HEMATOCRIT 31.8 % (36.0-47.0); HEMOGLOBIN 9.4 g/dl (12.0-15.5); LYMPH # 1.2 10^3/uL (1.5-5.0); LYMPH % 15.5 % (24.0-44.0); MEAN CORPUSCULAR HEMOGLOBIN 29.4 pg (27.0-33.0); MEAN CORPUSCULAR HGB CONC 29.6 g/dl (32.0-36.5); MEAN CORPUSCULAR VOLUME 99.4 fl (80.0-96.0); MONO # 0.7 10^3/uL (0.0-0.8); MONO % 9.4 % (2.0-8.0); NEUTROPHILS # 5.2 10^3/uL (1.5-8.5); NEUTROPHILS % 70.1 % (36.0-66.0); PLATELET COUNT, AUTOMATED 142 10^3/uL (150-450); WHITE BLOOD COUNT 7.4 10^3/uL (4.0-10.0)
[2022-03-24 06:58] LABS: ALBUMIN 2.7 GM/DL (3.2-5.2); ALT/SGPT 6 U/L (12-78); BILIRUBIN,TOTAL 0.8 MG/DL (0.2-1.0); BLOOD UREA NITROGEN 29 MG/DL (7-18); CALCIUM LEVEL 9.3 MG/DL (8.8-10.2); CARBON DIOXIDE LEVEL 48 MEQ/L (21-32); CHLORIDE LEVEL 94 MEQ/L (98-107); CREATININE FOR GFR 1.15 MG/DL (0.55-1.30); GLOMERULAR FILTRATION RATE 48.6 (>39); GLUCOSE, FASTING 94 MG/DL (70-100); MAGNESIUM LEVEL 1.8 MG/DL (1.8-2.4); POTASSIUM SERUM 4.4 MEQ/L (3.5-5.1); SODIUM LEVEL 139 MEQ/L (136-145); TOTAL PROTEIN 5.8 GM/DL (6.4-8.2)
[2022-03-24] MEDS: POTASSIUM CHLORIDE 10MEQ SR TABLET PO SCH (08:08)
[2022-03-24] MEDS: METOPROLOL TART 25 MG TABLET PO SCH ×2 (08:09→20:34)
[2022-03-24] MEDS: SODIUM CHLORIDE 0.9% NASAL GEL 15GM (AYR) SCH ×2 (08:10→20:34)
[2022-03-24] MEDS: APIXABAN 5 MG TAB (ELIQUIS) PO SCH ×3 (08:10→20:32)
[2022-03-24] MEDS: PERCOCET 5MG/325MG TAB PO PRN ×4 (08:10→21:11)
[2022-03-24] MEDS: TORSEMIDE 20 MG TAB PO SCH ×2 (08:10→17:06)
[2022-03-24] MEDS: **NOTE PATIENT COMMENT** MISC XX SCH (08:11)
[2022-03-24] MEDS: DIMETHICONE 2% OINTMENT(VANICREAM) 70GM TUBE TOP SCH ×2 (08:11→20:35)
[2022-03-24] MEDS: ALBUTEROL 90 MCG/ACT 8GM HFA INHALER INH PRN (20:23)
[2022-03-24] MEDS: LIDOCAINE 5% (LIDODERM) PATCH TD SCH (20:34)
[2022-03-24 20:47] VITALS: BP 111/88
[2022-03-25 06:00] VITALS: BP 138/66
[2022-03-25] MEDS: PERCOCET 5MG/325MG TAB PO PRN ×4 (06:13→20:07)
[2022-03-25] MEDS: **NOTE PATIENT COMMENT** MISC XX SCH (09:00)
[2022-03-25] MEDS: DIMETHICONE 2% OINTMENT(VANICREAM) 70GM TUBE TOP SCH ×2 (09:00→20:19)
[2022-03-25] MEDS: SODIUM CHLORIDE 0.9% NASAL GEL 15GM (AYR) SCH ×2 (09:00→20:18)
[2022-03-25] MEDS: POTASSIUM CHLORIDE 10MEQ SR TABLET PO SCH (09:04)
[2022-03-25] MEDS: TORSEMIDE 20 MG TAB PO SCH ×2 (09:04→16:59)
[2022-03-25] MEDS: METOPROLOL TART 25 MG TABLET PO SCH ×2 (09:05→20:06)
[2022-03-25] MEDS: APIXABAN 5 MG TAB (ELIQUIS) PO SCH ×2 (09:05→20:06)
[2022-03-25] MEDS: MOM 30ML SUSPENSION UDC PO PRN (09:05)
[2022-03-25] MEDS: LIDOCAINE 5% (LIDODERM) PATCH TD SCH (20:19)
[2022-03-26] MEDS: PERCOCET 5MG/325MG TAB PO PRN ×4 (05:46→20:14)
[2022-03-26 05:49] VITALS: BP 139/66
[2022-03-26 06:00] VITALS: BP 139/66
[2022-03-26] MEDS: DIMETHICONE 2% OINTMENT(VANICREAM) 70GM TUBE TOP SCH ×2 (09:00→21:00)
[2022-03-26] MEDS: SODIUM CHLORIDE 0.9% NASAL GEL 15GM (AYR) SCH ×2 (09:00→21:00)
[2022-03-26] MEDS: **NOTE PATIENT COMMENT** MISC XX SCH (09:03)
[2022-03-26] MEDS: APIXABAN 5 MG TAB (ELIQUIS) PO SCH ×2 (09:04→20:13)
[2022-03-26] MEDS: METOPROLOL TART 25 MG TABLET PO SCH ×2 (09:04→20:14)
[2022-03-26] MEDS: POTASSIUM CHLORIDE 10MEQ SR TABLET PO SCH (09:04)
[2022-03-26] MEDS: TORSEMIDE 20 MG TAB PO SCH ×2 (09:05→17:55)
[2022-03-26] MEDS: LIDOCAINE 5% (LIDODERM) PATCH TD SCH (21:00)
[2022-03-27 05:27] VITALS: BP 120/60
[2022-03-27] MEDS: APIXABAN 5 MG TAB (ELIQUIS) PO SCH ×2 (08:09→20:53)
[2022-03-27] MEDS: METOPROLOL TART 25 MG TABLET PO SCH ×2 (08:10→20:53)
[2022-03-27] MEDS: POTASSIUM CHLORIDE 10MEQ SR TABLET PO SCH (08:10)
[2022-03-27] MEDS: TORSEMIDE 20 MG TAB PO SCH ×2 (08:10→16:56)
[2022-03-27] MEDS: PERCOCET 5MG/325MG TAB PO PRN ×3 (08:12→21:17)
[2022-03-27] MEDS: DIMETHICONE 2% OINTMENT(VANICREAM) 70GM TUBE TOP SCH ×2 (09:00→20:54)
[2022-03-27] MEDS: SODIUM CHLORIDE 0.9% NASAL GEL 15GM (AYR) SCH ×2 (09:00→20:54)
[2022-03-27] MEDS: **NOTE PATIENT COMMENT** MISC XX SCH (09:00)
[2022-03-27] MEDS: LIDOCAINE 5% (LIDODERM) PATCH TD SCH (20:54)
[2022-03-27 21:00] VITALS: BP 127/58
[2022-03-28] MEDS: PERCOCET 5MG/325MG TAB PO PRN ×2 (04:17→22:04)
[2022-03-28 05:56] VITALS: BP 115/62
[2022-03-28] MEDS: POTASSIUM CHLORIDE 10MEQ SR TABLET PO SCH (08:42)
[2022-03-28] MEDS: TORSEMIDE 20 MG TAB PO SCH ×2 (08:42→16:47)
[2022-03-28] MEDS: APIXABAN 5 MG TAB (ELIQUIS) PO SCH ×2 (08:42→22:02)
[2022-03-28] MEDS: METOPROLOL TART 25 MG TABLET PO SCH ×2 (08:47→21:00)
[2022-03-28] MEDS: SODIUM CHLORIDE 0.9% NASAL GEL 15GM (AYR) SCH ×2 (08:48→22:02)
[2022-03-28] MEDS: DIMETHICONE 2% OINTMENT(VANICREAM) 70GM TUBE TOP SCH ×2 (08:48→22:03)
[2022-03-28] MEDS: **NOTE PATIENT COMMENT** MISC XX SCH (08:49)
[2022-03-28] MEDS: diazePAM 5MG TABLET PO PRN (10:28)
[2022-03-28] MEDS ORDERED: ONDANSETRON 4MG ORAL DISINTEGRATING TAB PO PRN (21:40)
[2022-03-28] MEDS ORDERED: DICYCLOMINE 10 MG CAP PO PRN (21:40)
[2022-03-28] MEDS: LIDOCAINE 5% (LIDODERM) PATCH TD SCH (22:03)
[2022-03-29 06:00] VITALS: BP 99/58
[2022-03-29] MEDS: **NOTE PATIENT COMMENT** MISC XX SCH (09:00)
[2022-03-29] MEDS: APIXABAN 5 MG TAB (ELIQUIS) PO SCH ×2 (09:28→21:22)
[2022-03-29] MEDS: DIMETHICONE 2% OINTMENT(VANICREAM) 70GM TUBE TOP SCH ×2 (09:29→21:23)
[2022-03-29] MEDS: TORSEMIDE 20 MG TAB PO SCH ×2 (09:29→16:13)
[2022-03-29] MEDS: SODIUM CHLORIDE 0.9% NASAL GEL 15GM (AYR) SCH ×2 (09:30→21:00)
[2022-03-29] MEDS: METOPROLOL TART 25 MG TABLET PO SCH ×2 (09:31→21:22)
[2022-03-29 10:09] LABS: HEMATOCRIT 32.6 % (36.0-47.0); HEMOGLOBIN 9.6 g/dl (12.0-15.5); MEAN CORPUSCULAR HEMOGLOBIN 30.8 pg (27.0-33.0); MEAN CORPUSCULAR HGB CONC 29.4 g/dl (32.0-36.5); MEAN CORPUSCULAR VOLUME 104.5 fl (80.0-96.0); PLATELET COUNT, AUTOMATED 139 10^3/uL (150-450); RED BLOOD COUNT 3.12 10^6/uL (4.00-5.40); WHITE BLOOD COUNT 7.7 10^3/uL (4.0-10.0)
[2022-03-29 11:07] LABS: BLOOD UREA NITROGEN 24 MG/DL (7-18); CALCIUM LEVEL 9.2 MG/DL (8.8-10.2); CARBON DIOXIDE LEVEL 51 MEQ/L (21-32); CHLORIDE LEVEL 92 MEQ/L (98-107); CREATININE FOR GFR 1.17 MG/DL (0.55-1.30); GLOMERULAR FILTRATION RATE 47.6 (>39); GLUCOSE, FASTING 99 MG/DL (70-100); POTASSIUM SERUM 4.2 MEQ/L (3.5-5.1); SODIUM LEVEL 138 MEQ/L (136-145)
[2022-03-29] MEDS: POTASSIUM CHLORIDE 10MEQ SR TABLET PO SCH (12:02)
[2022-03-29] MEDS: PERCOCET 5MG/325MG TAB PO PRN ×2 (12:04→21:24)
[2022-03-29] MEDS: diazePAM 5MG TABLET PO PRN (16:13)
[2022-03-29] MEDS: LIDOCAINE 5% (LIDODERM) PATCH TD SCH (21:23)
[2022-03-30 05:56] VITALS: BP 109/57
[2022-03-30] MEDS: APIXABAN 5 MG TAB (ELIQUIS) PO SCH ×2 (09:38→20:21)
[2022-03-30] MEDS: POTASSIUM CHLORIDE 10MEQ SR TABLET PO SCH (09:38)
[2022-03-30] MEDS: TORSEMIDE 20 MG TAB PO SCH (09:38)
[2022-03-30] MEDS: SODIUM CHLORIDE 0.9% NASAL GEL 15GM (AYR) SCH ×2 (09:39→20:15)
[2022-03-30] MEDS: DIMETHICONE 2% OINTMENT(VANICREAM) 70GM TUBE TOP SCH ×2 (09:40→20:21)
[2022-03-30] MEDS: METOPROLOL TART 25 MG TABLET PO SCH ×2 (09:40→20:15)
[2022-03-30] MEDS: PERCOCET 5MG/325MG TAB PO PRN ×3 (09:43→23:20)
[2022-03-30] MEDS: **NOTE PATIENT COMMENT** MISC XX SCH (09:44)
[2022-03-30] MEDS ORDERED: ALBUTEROL SULFATE 2.5 MG/0.5 ML INH NEB SOLN NEB PRN (10:50)
[2022-03-30] MEDS: IPRATROPIUM 0.5MG/ALBUTEROL 2.5MG INH SOL UD 3ML (DUONEB) NEB SCH ×3 (11:10→20:14)
[2022-03-30] MEDS: TORSEMIDE 10 MG TABLET PO SCH (17:35)
[2022-03-30] MEDS ORDERED: RAMELTEON 8 MG TAB (ROZEREM) PO PRN (20:10)
[2022-03-30] MEDS ORDERED: hydrOXYzine 50 MG TAB PO ONE (20:10)
[2022-03-30] MEDS: LIDOCAINE 5% (LIDODERM) PATCH TD SCH (20:15)
[2022-03-31 06:00] VITALS: BP 113/66
[2022-03-31] MEDS: PERCOCET 5MG/325MG TAB PO PRN ×2 (06:52→18:05)
[2022-03-31] MEDS: IPRATROPIUM 0.5MG/ALBUTEROL 2.5MG INH SOL UD 3ML (DUONEB) NEB SCH ×4 (07:22→19:44)
[2022-03-31] MEDS: SODIUM CHLORIDE 0.9% NASAL GEL 15GM (AYR) SCH ×2 (09:00→20:41)
[2022-03-31] MEDS: **NOTE PATIENT COMMENT** MISC XX SCH (09:00)
[2022-03-31] MEDS: APIXABAN 5 MG TAB (ELIQUIS) PO SCH ×2 (09:08→20:49)
[2022-03-31] MEDS: POTASSIUM CHLORIDE 10MEQ SR TABLET PO SCH (09:08)
[2022-03-31] MEDS: TORSEMIDE 10 MG TABLET PO SCH ×2 (09:09→18:04)
[2022-03-31] MEDS: METOPROLOL TART 25 MG TABLET PO SCH ×2 (09:09→20:41)
[2022-03-31] MEDS: DIMETHICONE 2% OINTMENT(VANICREAM) 70GM TUBE TOP SCH ×2 (09:10→20:49)
[2022-03-31 18:30] VITALS: BP 119/48
[2022-03-31] MEDS: LIDOCAINE 5% (LIDODERM) PATCH TD SCH (20:41)
[2022-04-01 05:40] VITALS: BP 141/71
[2022-04-01] MEDS: PERCOCET 5MG/325MG TAB PO PRN ×2 (06:27→20:31)
[2022-04-01] MEDS: IPRATROPIUM 0.5MG/ALBUTEROL 2.5MG INH SOL UD 3ML (DUONEB) NEB SCH ×4 (07:12→20:10)
[2022-04-01] MEDS: METOPROLOL TART 25 MG TABLET PO SCH ×2 (09:00→20:26)
[2022-04-01] MEDS: **NOTE PATIENT COMMENT** MISC XX SCH (09:00)
[2022-04-01] MEDS: SODIUM CHLORIDE 0.9% NASAL GEL 15GM (AYR) SCH ×2 (09:00→20:26)
[2022-04-01] MEDS: POTASSIUM CHLORIDE 10MEQ SR TABLET PO SCH (09:29)
[2022-04-01] MEDS: TORSEMIDE 10 MG TABLET PO SCH ×2 (09:30→17:00)
[2022-04-01] MEDS: APIXABAN 5 MG TAB (ELIQUIS) PO SCH ×2 (09:30→20:26)
[2022-04-01 12:01] VITALS: BP 118/61
[2022-04-01] MEDS: DIMETHICONE 2% OINTMENT(VANICREAM) 70GM TUBE TOP SCH ×2 (14:01→20:28)
[2022-04-01] MEDS: diazePAM 5MG TABLET PO PRN (15:27)
[2022-04-01] MEDS: LIDOCAINE 5% (LIDODERM) PATCH TD SCH (20:46)
[2022-04-02 05:30] VITALS: BP 131/63
[2022-04-02] MEDS: IPRATROPIUM 0.5MG/ALBUTEROL 2.5MG INH SOL UD 3ML (DUONEB) NEB SCH ×3 (07:28→15:48)
[2022-04-02] MEDS: POTASSIUM CHLORIDE 10MEQ SR TABLET PO SCH (08:41)
[2022-04-02 08:42] VITALS: BP 142/67
[2022-04-02] MEDS: APIXABAN 5 MG TAB (ELIQUIS) PO SCH (08:42)
[2022-04-02] MEDS: METOPROLOL TART 25 MG TABLET PO SCH (08:42)
[2022-04-02] MEDS: TORSEMIDE 10 MG TABLET PO SCH (08:42)
[2022-04-02] MEDS: **NOTE PATIENT COMMENT** MISC XX SCH (08:46)
[2022-04-02] MEDS: SODIUM CHLORIDE 0.9% NASAL GEL 15GM (AYR) SCH (08:49)
[2022-04-02] MEDS: DIMETHICONE 2% OINTMENT(VANICREAM) 70GM TUBE TOP SCH (08:49)
[2022-04-02 09:30] VITALS: BP 142/67
[2022-04-02 11:50] VITALS: O2SAT 98
[2022-04-02] MEDS ORDERED: SENN-52 PO (12:29)
[2022-04-02] MEDS ORDERED: RAME8TAB2 PO (12:29)
[2022-04-02] MEDS ORDERED: ACET1TAB55 PO (12:29)
[2022-04-02] MEDS ORDERED: TORS20TA2 PO (13:32)
== END 2022-04-02 16:15 | disposition home health service (06) | DRG 291 ==
LOC: M ED 16:24 → M ED INP 19:39 → ENRESERV 21:54 → M PCU 22:32 → M ICU 02-24 03:30 → M MSPAV 02-25 14:20
PROVIDERS: ADMIT Internal Medicine; ATTEND Internal Medicine
PROC: 5A09457 Assistance with Respiratory Ventilation, 24-96 Consecutive Hours, Continuous Positive Airway Pressure (ICD-10-PCS; principal; 2022-02-24)
DX: I13.0 Hypertensive heart and chronic kidney disease with heart failure and stage 1 through stage 4 chronic kidney disease, or unspecified chronic kidney disease (principal); J96.21 Acute and chronic respiratory failure with hypoxia; J96.22 Acute and chronic respiratory failure with hypercapnia; C34.11 Malignant neoplasm of upper lobe, right bronchus or lung; I48.20 Chronic atrial fibrillation, unspecified; E87.2 Acidosis; I50.9 Heart failure, unspecified; F41.9 Anxiety disorder, unspecified; F32.A Depression, unspecified; I27.20 Pulmonary hypertension, unspecified; Z66 Do not resuscitate; N18.30 Chronic kidney disease, stage 3 unspecified; F17.210 Nicotine dependence, cigarettes, uncomplicated; I25.10 Atherosclerotic heart disease of native coronary artery without angina pectoris; E78.5 Hyperlipidemia, unspecified; G47.33 Obstructive sleep apnea (adult) (pediatric); K21.9 Gastro-esophageal reflux disease without esophagitis; I87.2 Venous insufficiency (chronic) (peripheral); C50.912 Malignant neoplasm of unspecified site of left female breast; E11.22 Type 2 diabetes mellitus with diabetic chronic kidney disease; Z85.41 Personal history of malignant neoplasm of cervix uteri; Z99.81 Dependence on supplemental oxygen; Z90.49 Acquired absence of other specified parts of digestive tract; Z79.899 Other long term (current) drug therapy; Z79.01 Long term (current) use of anticoagulants; Z88.1 Allergy status to other antibiotic agents; Z91.040 Latex allergy status; Z91.048 Other nonmedicinal substance allergy status

== ENCOUNTER → 2022-04-22 | Outpatient (REF) | payer MEDICARE, OTHER ==
[~2022-04-22] MED LIST changes: +POTA-136; +POTA-150 PO; -POTA10TA17 PO; +RAME8TAB2 PO
[2022-04-22 19:32] LABS: CALCIUM LEVEL 8.9 MG/DL (8.8-10.2); CREATININE FOR GFR 1.51 MG/DL (0.55-1.30); GLOMERULAR FILTRATION RATE 35.4 (>39); MAGNESIUM LEVEL 2.5 MG/DL (1.8-2.4); POTASSIUM SERUM 4.6 MEQ/L (3.5-5.1)
== END ==
LOC: M SHH 18:36
PROVIDERS: ATTEND Internal Medicine
DX: I11.0 Hypertensive heart disease with heart failure (principal); I50.31 Acute diastolic (congestive) heart failure; J96.21 Acute and chronic respiratory failure with hypoxia; J96.22 Acute and chronic respiratory failure with hypercapnia; J44.9 Chronic obstructive pulmonary disease, unspecified; I27.20 Pulmonary hypertension, unspecified

== ENCOUNTER 2022-05-05 09:16 | Inpatient (IN) | payer MEDICARE, OTHER ==
[~2022-05-05] VITALS: Ht 147.3 cm; Wt 63.8 kg
[2022-05-05] VITALS (16 sets, daily range): BP systolic 98–131; BP diastolic 54–83
[~2022-05-05 09:16] MED LIST changes: +HEPARIN SOD (PORCINE) 5000UNITS/ML 1ML VIAL/SYRINGE SQ SCH
[2022-05-05 09:52] LABS: BASO # 0.1 10^3/uL (0.0-0.2); BASO % 0.4 % (0.0-1.0); HEMATOCRIT 37.6 % (36.0-47.0); HEMOGLOBIN 10.4 g/dl (12.0-15.5); LYMPH # 0.8 10^3/uL (1.5-5.0); LYMPH % 7.1 % (24.0-44.0); MEAN CORPUSCULAR HEMOGLOBIN 30.8 pg (27.0-33.0); MEAN CORPUSCULAR HGB CONC 27.7 g/dl (32.0-36.5); MEAN CORPUSCULAR VOLUME 111.2 fl (80.0-96.0); MONO # 0.7 10^3/uL (0.0-0.8); MONO % 5.8 % (2.0-8.0); NEUTROPHILS # 10.1 10^3/uL (1.5-8.5); NEUTROPHILS % 85.4 % (36.0-66.0); PLATELET COUNT, AUTOMATED 155 10^3/uL (150-450); RED BLOOD COUNT 3.38 10^6/uL (4.00-5.40); WHITE BLOOD COUNT 11.8 10^3/uL (4.0-10.0)
[2022-05-05 10:10] LABS: ABG O2 SATURATION 99.8 % (95.0-99.0)
[2022-05-05 10:15] LABS: ABG BASE EXCESS 16.3 (-2.0-2.0); ABG HCO3 48.5 MEQ/L (22.0-26.0); ABG PARTIAL PRESSURE O2 385.8 mmHg (75.0-100.0); ABG STANDARD HCO3 40.2 MEQ/L (22.0-26.0); ABG TOTAL CO2 52.3 MEQ/L (23.0-31.0)
[2022-05-05 10:17] LABS: ABG PARTIAL PRESSURE CO2 122.4 mmHg (35.0-45.0); ABG pH (ARTERIAL) 7.216 UNITS (7.350-7.450)
[2022-05-05] MEDS ORDERED: propofoL 1,000 MG in IV 1 EA IV SCH (10:20)
[2022-05-05 10:22] LABS: CK-MB VALUE MASS 3.6 NG/ML (<3.6); MB/CK RELATIVE INDEX 6.21 (< OR =4)
[2022-05-05 10:49] LABS: ACETAMINOPHEN LEVEL < 2.0 UG/ML (10.0-30.0); ALBUMIN 3.5 GM/DL (3.2-5.2); ALT/SGPT 14 U/L (12-78); BILIRUBIN,DIRECT 0.4 MG/DL (0.0-0.2); BILIRUBIN,TOTAL 0.8 MG/DL (0.2-1.0); BLOOD UREA NITROGEN 41 MG/DL (7-18); CALCIUM LEVEL 9.3 MG/DL (8.8-10.2); CARBON DIOXIDE LEVEL 45 MEQ/L (21-32); CHLORIDE LEVEL 95 MEQ/L (98-107); ETHYL ALCOHOL (ETHANOL) 0.004 % (0.000-0.010); GLOMERULAR FILTRATION RATE 28.9 (>39); GLUCOSE, FASTING 107 MG/DL (70-100); POTASSIUM SERUM 5.2 MEQ/L (3.5-5.1); SALICYLATE LEVEL < 1.7 MG/DL (5.0-30.0); SODIUM LEVEL 138 MEQ/L (136-145)
[2022-05-05 10:55] LABS: RSV AMPLIFICATION NEGATIVE (NEGATIVE)
[2022-05-05] MEDS ORDERED: SUCCINYLCHOLINE INJ 200 MG/10 ML VIAL (J0330) IV STA (11:59)
[2022-05-05] MEDS ORDERED: ETOMIDATE INJ 20MG/10ML VIAL IV STA (11:59)
[2022-05-05] MEDS ORDERED: COMBIVENT RESPIMAT 100-20MCG INHALER 4GM INH SCH (12:00)
[2022-05-05 12:42] LABS: AMPHETAMINES LEVEL URINE NEGATIVE (NEGATIVE); BARBITURATES URINE NEGATIVE (NEGATIVE); BENZODIAZEPINES URINE POSITIVE (NEGATIVE); CANNABINOIDS URINE NEGATIVE (NEGATIVE); COCAINE METABOLITE URINE NEGATIVE (NEGATIVE); METHADONE URINE NEGATIVE (NEGATIVE); OPIATES URINE POSITIVE (NEGATIVE); PHENCYCLIDINE URINE NEGATIVE (NEGATIVE)
[2022-05-05 13:29] LABS: ALBUMIN 3.1 GM/DL (3.2-5.2); BILIRUBIN,TOTAL 1.3 MG/DL (0.2-1.0); CALCIUM LEVEL 9.3 MG/DL (8.8-10.2); CREATININE FOR GFR 1.68 MG/DL (0.55-1.30); GLOMERULAR FILTRATION RATE 31.3 (>39); POTASSIUM SERUM 5.2 MEQ/L (3.5-5.1); TOTAL PROTEIN 6.8 GM/DL (6.4-8.2)
[2022-05-05 13:31] LABS: ABG BASE EXCESS 16.2 (-2.0-2.0); ABG HCO3 41.4 MEQ/L (22.0-26.0); ABG O2 SATURATION 99.3 % (95.0-99.0); ABG PARTIAL PRESSURE CO2 53.6 mmHg (35.0-45.0); ABG PARTIAL PRESSURE O2 156.1 mmHg (75.0-100.0); ABG STANDARD HCO3 40.1 MEQ/L (22.0-26.0); ABG TOTAL CO2 43.1 MEQ/L (23.0-31.0); ABG pH (ARTERIAL) 7.506 UNITS (7.350-7.450)
[2022-05-05] MEDS: PANTOPRAZOLE 40MG VIAL IV SCH (13:42)
[2022-05-05] MEDS: LR 1,000 ML IV SCH (13:42)
[2022-05-05] MEDS: IPRATROPIUM 0.5MG/ALBUTEROL 2.5MG INH SOL UD 3ML (DUONEB) NEB SCH ×3 (15:37→23:34)
[2022-05-05 16:06] LABS: ABG HCO3 38.6 MEQ/L (22.0-26.0); ABG O2 SATURATION 93.4 % (95.0-99.0); ABG PARTIAL PRESSURE CO2 48.8 mmHg (35.0-45.0); ABG PARTIAL PRESSURE O2 51.7 mmHg (75.0-100.0); ABG STANDARD HCO3 37.7 MEQ/L (22.0-26.0); ABG TOTAL CO2 40.1 MEQ/L (23.0-31.0); ABG pH (ARTERIAL) 7.516 UNITS (7.350-7.450)
[2022-05-05] MEDS: MIDAZOLAM INJ 2MG/2ML VIAL (J2250 PER 1MG) IV PRN (16:07)
[2022-05-05] MEDS: propofoL 1,000 MG in IV 1 EA IV SCH ×2 (17:47→22:33)
[2022-05-05] MEDS: methylPREDNISolone 125MG 2ML VIAL IV SCH ×2 (17:48→23:25)
[2022-05-05] MEDS ORDERED: VITA400C49 PO (18:00)
[2022-05-05] MEDS ORDERED: TORS20TA2 PO (18:00)
[2022-05-05] MEDS ORDERED: ROZE8TAB16 PO (18:00)
[2022-05-05] MEDS ORDERED: COLA1TAB PO (18:00)
[2022-05-05] MEDS ORDERED: SPIR-10 PO (18:00)
[2022-05-05] MEDS ORDERED: HOME MED LIST COMPLETE! XX SCH (18:05)
[2022-05-05] MEDS: fentaNYL 100 MCG/2 ML INJECTION IV PRN (19:56)
[2022-05-05] MEDS: CHLORHEXIDINE GLUCONATE 0.12 % 15ML UDC (PERIDEX ORAL RINSE) MT SCH (20:13)
[2022-05-05] MEDS: METOPROLOL TART 25 MG TABLET PO SCH (21:40)
[2022-05-06] VITALS (44 sets, daily range): BP systolic 92–136; BP diastolic 50–78
[2022-05-06] MEDS: MIDAZOLAM INJ 2MG/2ML VIAL (J2250 PER 1MG) IV PRN ×6 (00:35→23:45)
[2022-05-06] MEDS: fentaNYL 100 MCG/2 ML INJECTION IV PRN ×2 (00:35→03:32)
[2022-05-06] MEDS: LR 1,000 ML IV SCH (01:29)
[2022-05-06] MEDS: IPRATROPIUM 0.5MG/ALBUTEROL 2.5MG INH SOL UD 3ML (DUONEB) NEB SCH ×6 (03:24→23:20)
[2022-05-06] MEDS ORDERED: METOPROLOL TART 50 MG TAB PO ONE (04:00)
[2022-05-06 04:25] LABS: HEMATOCRIT 31.6 % (36.0-47.0); HEMOGLOBIN 9.5 g/dl (12.0-15.5); MEAN CORPUSCULAR HEMOGLOBIN 30.9 pg (27.0-33.0); MEAN CORPUSCULAR HGB CONC 30.1 g/dl (32.0-36.5); MEAN CORPUSCULAR VOLUME 102.9 fl (80.0-96.0); PLATELET COUNT, AUTOMATED 128 10^3/uL (150-450); RED BLOOD COUNT 3.07 10^6/uL (4.00-5.40); WHITE BLOOD COUNT 9.1 10^3/uL (4.0-10.0)
[2022-05-06 05:10] LABS: ALBUMIN 2.9 GM/DL (3.2-5.2); BILIRUBIN,TOTAL 1.2 MG/DL (0.2-1.0); CALCIUM LEVEL 8.9 MG/DL (8.8-10.2); CREATININE FOR GFR 1.84 MG/DL (0.55-1.30); GLOMERULAR FILTRATION RATE 28.2 (>39); POTASSIUM SERUM 4.6 MEQ/L (3.5-5.1); TOTAL PROTEIN 6.2 GM/DL (6.4-8.2)
[2022-05-06 05:54] LABS: ABG BASE EXCESS 17.6 (-2.0-2.0); ABG HCO3 42.1 MEQ/L (22.0-26.0); ABG O2 SATURATION 91.9 % (95.0-99.0); ABG PARTIAL PRESSURE CO2 49.9 mmHg (35.0-45.0); ABG PARTIAL PRESSURE O2 53.7 mmHg (75.0-100.0); ABG STANDARD HCO3 41.4 MEQ/L (22.0-26.0); ABG TOTAL CO2 43.6 MEQ/L (23.0-31.0); ABG pH (ARTERIAL) 7.544 UNITS (7.350-7.450)
[2022-05-06] MEDS: methylPREDNISolone 125MG 2ML VIAL IV SCH (07:21)
[2022-05-06] MEDS: ENOXAPARIN 60MG/0.6ML SYRINGE (J1650 PER 10MG) SC SCH (08:22)
[2022-05-06] MEDS: PANTOPRAZOLE 40MG VIAL IV SCH (08:22)
[2022-05-06] MEDS: CHLORHEXIDINE GLUCONATE 0.12 % 15ML UDC (PERIDEX ORAL RINSE) MT SCH ×2 (08:23→20:10)
[2022-05-06] MEDS: METOPROLOL TART 25 MG TABLET PO SCH ×2 (08:23→20:11)
[2022-05-06] MEDS ORDERED: ENOXAPARIN 40MG/0.4ML SYRINGE (J1650 PER 10MG) SC SCH (09:00)
[2022-05-06] MEDS: propofoL 1,000 MG in IV 1 EA IV SCH ×3 (10:02→20:12)
[2022-05-06] MEDS: dexmedeTOMidine 200 MCG in IV 1 EA IV SCH ×2 (11:40→20:19)
[2022-05-06] MEDS: FUROSEMIDE 40MG/4ML VIAL (J1940) IV SCH (11:42)
[2022-05-06] MEDS: methylPREDNISolone 40MG 1ML VIAL IV SCH ×2 (16:45→22:57)
[2022-05-06 18:24] LABS: CALCIUM LEVEL 9.2 MG/DL (8.8-10.2); CREATININE FOR GFR 1.69 MG/DL (0.55-1.30); GLOMERULAR FILTRATION RATE 31.1 (>39); MAGNESIUM LEVEL 2.2 MG/DL (1.8-2.4); POTASSIUM SERUM 3.8 MEQ/L (3.5-5.1)
[2022-05-07] VITALS (40 sets, daily range): BP systolic 92–152; BP diastolic 51–91
[2022-05-07] MEDS ORDERED: METOPROLOL TART 50 MG TAB PO ONE (00:35)
[2022-05-07] MEDS: IPRATROPIUM 0.5MG/ALBUTEROL 2.5MG INH SOL UD 3ML (DUONEB) NEB SCH ×6 (03:24→23:07)
[2022-05-07] MEDS: MIDAZOLAM INJ 2MG/2ML VIAL (J2250 PER 1MG) IV PRN ×3 (03:52→23:36)
[2022-05-07 05:00] LABS: HEMATOCRIT 30.3 % (36.0-47.0); HEMOGLOBIN 9.5 g/dl (12.0-15.5); MEAN CORPUSCULAR HEMOGLOBIN 30.8 pg (27.0-33.0); MEAN CORPUSCULAR HGB CONC 31.4 g/dl (32.0-36.5); MEAN CORPUSCULAR VOLUME 98.4 fl (80.0-96.0); PLATELET COUNT, AUTOMATED 142 10^3/uL (150-450); RED BLOOD COUNT 3.08 10^6/uL (4.00-5.40)
[2022-05-07] MEDS: propofoL 1,000 MG in IV 1 EA IV SCH ×3 (05:07→23:23)
[2022-05-07 05:48] LABS: ABG BASE EXCESS 17.2 (-2.0-2.0); ABG O2 SATURATION 93.6 % (95.0-99.0); ABG PARTIAL PRESSURE CO2 51.5 mmHg (35.0-45.0); ABG PARTIAL PRESSURE O2 62.9 mmHg (75.0-100.0); ABG TOTAL CO2 43.6 MEQ/L (23.0-31.0); ABG pH (ARTERIAL) 7.529 UNITS (7.350-7.450)
[2022-05-07] MEDS: methylPREDNISolone 40MG 1ML VIAL IV SCH ×2 (06:25→18:12)
[2022-05-07] MEDS: PANTOPRAZOLE 40MG VIAL IV SCH (08:04)
[2022-05-07] MEDS: CHLORHEXIDINE GLUCONATE 0.12 % 15ML UDC (PERIDEX ORAL RINSE) MT SCH ×2 (08:04→20:04)
[2022-05-07] MEDS: ENOXAPARIN 60MG/0.6ML SYRINGE (J1650 PER 10MG) SC SCH (08:04)
[2022-05-07] MEDS: FUROSEMIDE 40MG/4ML VIAL (J1940) IV SCH (08:04)
[2022-05-07] MEDS: METOPROLOL TART 25 MG TABLET PO SCH ×2 (08:05→20:04)
[2022-05-07] MEDS: dexmedeTOMidine 200 MCG in IV 1 EA IV SCH ×2 (09:32→18:43)
[2022-05-08] VITALS (25 sets, daily range): BP systolic 112–175; BP diastolic 56–92; O2SAT 95
[2022-05-08] MEDS: dexmedeTOMidine 200 MCG in IV 1 EA IV SCH ×2 (01:52→05:48)
[2022-05-08] MEDS: MIDAZOLAM INJ 2MG/2ML VIAL (J2250 PER 1MG) IV PRN ×2 (02:03→03:36)
[2022-05-08] MEDS: IPRATROPIUM 0.5MG/ALBUTEROL 2.5MG INH SOL UD 3ML (DUONEB) NEB SCH ×6 (03:16→23:36)
[2022-05-08 04:52] LABS: HEMATOCRIT 34.7 % (36.0-47.0); HEMOGLOBIN 10.8 g/dl (12.0-15.5); MEAN CORPUSCULAR HEMOGLOBIN 30.9 pg (27.0-33.0); MEAN CORPUSCULAR HGB CONC 31.1 g/dl (32.0-36.5); MEAN CORPUSCULAR VOLUME 99.1 fl (80.0-96.0); PLATELET COUNT, AUTOMATED 156 10^3/uL (150-450); WHITE BLOOD COUNT 22.9 10^3/uL (4.0-10.0)
[2022-05-08 05:22] LABS: CALCIUM LEVEL 9.8 MG/DL (8.8-10.2); CREATININE FOR GFR 1.36 MG/DL (0.55-1.30); GLOMERULAR FILTRATION RATE 39.9 (>39)
[2022-05-08 05:55] LABS: ABG BASE EXCESS 19.6 (-2.0-2.0); ABG HCO3 44.8 MEQ/L (22.0-26.0); ABG O2 SATURATION 95.4 % (95.0-99.0); ABG PARTIAL PRESSURE CO2 53.2 mmHg (35.0-45.0); ABG PARTIAL PRESSURE O2 73.1 mmHg (75.0-100.0); ABG STANDARD HCO3 43.8 MEQ/L (22.0-26.0); ABG TOTAL CO2 46.4 MEQ/L (23.0-31.0); ABG pH (ARTERIAL) 7.543 UNITS (7.350-7.450)
[2022-05-08] MEDS: methylPREDNISolone 40MG 1ML VIAL IV SCH ×2 (06:13→18:15)
[2022-05-08] MEDS: KCL 10MEQ/100ML SWI (KRUN) 10 MEQ in IV 1 EA IV SCH ×4 (06:40→10:17)
[2022-05-08 07:26] LABS: MAGNESIUM LEVEL 2.3 MG/DL (1.8-2.4)
[2022-05-08] MEDS: ENOXAPARIN 60MG/0.6ML SYRINGE (J1650 PER 10MG) SC SCH (08:10)
[2022-05-08] MEDS: CHLORHEXIDINE GLUCONATE 0.12 % 15ML UDC (PERIDEX ORAL RINSE) MT SCH ×2 (08:11→20:29)
[2022-05-08] MEDS: DOCUSATE SOD LIQ 100MG/10ML UDC GT SCH ×2 (08:11→20:29)
[2022-05-08] MEDS: FUROSEMIDE 40MG/4ML VIAL (J1940) IV SCH (08:11)
[2022-05-08] MEDS: PANTOPRAZOLE 40MG VIAL IV SCH (08:11)
[2022-05-08] MEDS: SENNA 8.6 MG TAB (SENOKOT) PO SCH ×2 (08:12→20:29)
[2022-05-08] MEDS: METOPROLOL TART 25 MG TABLET PO SCH ×2 (08:12→20:29)
[2022-05-08] MEDS ORDERED: LIDOCAINE 5% (LIDODERM) PATCH TD ONE (21:00)
[2022-05-08] MEDS ORDERED: HumuLIN R (REGULAR) INSULIN (NovoLIN R) **100U/ML** PER UNIT SC STA (21:05)
[2022-05-09] VITALS (13 sets, daily range): BP systolic 119–166; BP diastolic 59–83; O2SAT 94–96
[2022-05-09] MEDS: IPRATROPIUM 0.5MG/ALBUTEROL 2.5MG INH SOL UD 3ML (DUONEB) NEB SCH ×6 (03:26→23:39)
[2022-05-09] MEDS: methylPREDNISolone 40MG 1ML VIAL IV SCH (06:02)
[2022-05-09 06:06] LABS: ABG HCO3 44.2 MEQ/L (22.0-26.0); ABG O2 SATURATION 87.1 % (95.0-99.0); ABG PARTIAL PRESSURE CO2 53.7 mmHg (35.0-45.0); ABG STANDARD HCO3 42.9 MEQ/L (22.0-26.0); ABG TOTAL CO2 45.8 MEQ/L (23.0-31.0); ABG pH (ARTERIAL) 7.533 UNITS (7.350-7.450)
[2022-05-09 06:07] LABS: ABG PARTIAL PRESSURE O2 47.1 mmHg (75.0-100.0)
[2022-05-09 07:36] LABS: HEMATOCRIT 34.6 % (36.0-47.0); HEMOGLOBIN 10.4 g/dl (12.0-15.5); MEAN CORPUSCULAR HEMOGLOBIN 30.7 pg (27.0-33.0); MEAN CORPUSCULAR HGB CONC 30.1 g/dl (32.0-36.5); MEAN CORPUSCULAR VOLUME 102.1 fl (80.0-96.0); PLATELET COUNT, AUTOMATED 166 10^3/uL (150-450); RED BLOOD COUNT 3.39 10^6/uL (4.00-5.40); WHITE BLOOD COUNT 22.9 10^3/uL (4.0-10.0)
[2022-05-09] MEDS ORDERED: **NOTE PATIENT COMMENT** MISC XX ONE (09:00)
[2022-05-09] MEDS ORDERED: VANCOMYCIN HCL 1,000 MG, VIAL MATE ADAPTER 1 EACH in NS 250 ML IV SCH (09:20)
[2022-05-09] MEDS ORDERED: VANCOMYCIN HCL 750 MG, VIAL MATE ADAPTER 1 EACH in D5W 250 ML IV ONE (09:45)
[2022-05-09] MEDS ORDERED: VANCOMYCIN HCL 500 MG in D5W MINI-BAG PLUS 100 ML IV ONE (09:45)
[2022-05-09] MEDS: SPIRONOLACTONE 12.5MG PER 1/2 TABLET PO SCH (10:16)
[2022-05-09] MEDS: DOCUSATE SOD LIQ 100MG/10ML UDC GT SCH (10:16)
[2022-05-09] MEDS: TORSEMIDE 20 MG TAB PO SCH (10:17)
[2022-05-09] MEDS: SENNA 8.6 MG TAB (SENOKOT) PO SCH ×2 (10:17→21:25)
[2022-05-09] MEDS: METOPROLOL TART 25 MG TABLET PO SCH ×2 (10:17→21:26)
[2022-05-09] MEDS: PANTOPRAZOLE 40MG VIAL IV SCH (10:17)
[2022-05-09] MEDS: ENOXAPARIN 60MG/0.6ML SYRINGE (J1650 PER 10MG) SC SCH (10:18)
[2022-05-09 10:21] LABS: BLOOD UREA NITROGEN 57 MG/DL (7-18); CALCIUM LEVEL 9.8 MG/DL (8.8-10.2); CARBON DIOXIDE LEVEL 43 MEQ/L (21-32); CHLORIDE LEVEL 103 MEQ/L (98-107); CREATININE FOR GFR 1.25 MG/DL (0.55-1.30); GLUCOSE, FASTING 166 MG/DL (70-100); POTASSIUM SERUM 3.2 MEQ/L (3.5-5.1); SODIUM LEVEL 145 MEQ/L (136-145)
[2022-05-09] MEDS ORDERED: POTASSIUM CHLORIDE 10MEQ SR TABLET PO ONE (12:00)
[2022-05-09] MEDS: MOM 30ML SUSPENSION UDC PO SCH (12:08)
[2022-05-09] MEDS ORDERED: predniSONE 10 MG TAB PO SCH (14:00)
[2022-05-09] MEDS: **NOTE PATIENT COMMENT** MISC XX SCH (21:00)
[2022-05-09] MEDS ORDERED: DOCUSATE SOD LIQ 100MG/10ML UDC PO SCH (21:00)
[2022-05-09] MEDS: ACETAMINOPHEN TAB 650MG DOSE (2X325MG) PO PRN (21:25)
[2022-05-09] MEDS: LIDOCAINE 5% (LIDODERM) PATCH TD PRN (21:26)
[2022-05-10] MEDS ORDERED: diphenhydrAMINE 50MG CAP PO ONE (02:00)
[2022-05-10] MEDS: IPRATROPIUM 0.5MG/ALBUTEROL 2.5MG INH SOL UD 3ML (DUONEB) NEB SCH ×5 (03:13→19:34)
[2022-05-10 03:49] VITALS: BP 144/84
[2022-05-10 08:25] LABS: HEMATOCRIT 34.6 % (36.0-47.0); HEMOGLOBIN 10.6 g/dl (12.0-15.5); MEAN CORPUSCULAR HEMOGLOBIN 31.1 pg (27.0-33.0); MEAN CORPUSCULAR HGB CONC 30.6 g/dl (32.0-36.5); MEAN CORPUSCULAR VOLUME 101.5 fl (80.0-96.0); PLATELET COUNT, AUTOMATED 186 10^3/uL (150-450); RED BLOOD COUNT 3.41 10^6/uL (4.00-5.40); WHITE BLOOD COUNT 22.2 10^3/uL (4.0-10.0)
[2022-05-10] MEDS: MOM 30ML SUSPENSION UDC PO SCH (09:00)
[2022-05-10] MEDS: DOCUSATE SODIUM 100MG CAPSULE PO SCH ×2 (09:00→19:40)
[2022-05-10] MEDS: SENNA 8.6 MG TAB (SENOKOT) PO SCH ×2 (09:00→19:40)
[2022-05-10 09:07] LABS: CALCIUM LEVEL 9.4 MG/DL (8.8-10.2); CREATININE FOR GFR 1.4 MG/DL (0.55-1.30); GLOMERULAR FILTRATION RATE 38.6 (>39); POTASSIUM SERUM 3.2 MEQ/L (3.5-5.1)
[2022-05-10] MEDS: SPIRONOLACTONE 12.5MG PER 1/2 TABLET PO SCH (09:13)
[2022-05-10] MEDS: PANTOPRAZOLE 40MG VIAL IV SCH (09:13)
[2022-05-10] MEDS: VANCOMYCIN HCL 750 MG, VIAL MATE ADAPTER 1 EACH in D5W 250 ML IV SCH (09:13)
[2022-05-10] MEDS: APIXABAN 5 MG TAB (ELIQUIS) PO SCH ×2 (09:13→19:44)
[2022-05-10] MEDS: ACETAMINOPHEN TAB 650MG DOSE (2X325MG) PO PRN ×2 (09:13→17:54)
[2022-05-10] MEDS: predniSONE 10 MG TAB PO SCH (09:14)
[2022-05-10] MEDS: METOPROLOL TART 25 MG TABLET PO SCH ×2 (09:14→19:44)
[2022-05-10] MEDS: TORSEMIDE 20 MG TAB PO SCH (09:14)
[2022-05-10] MEDS: **NOTE PATIENT COMMENT** MISC XX SCH ×2 (09:15→19:45)
[2022-05-10] MEDS: POTASSIUM CHLORIDE 10MEQ SR TABLET PO SCH (10:46)
[2022-05-10] MEDS: traMADol 50 MG TAB PO PRN (10:47)
[2022-05-10 14:00] VITALS: BP 144/79
[2022-05-10] MEDS: LIDOCAINE 5% (LIDODERM) PATCH TD PRN (19:45)
[2022-05-10 21:59] VITALS: BP 133/74
[2022-05-11] MEDS: IPRATROPIUM 0.5MG/ALBUTEROL 2.5MG INH SOL UD 3ML (DUONEB) NEB SCH ×7 (04:00→23:55)
[2022-05-11 06:13] VITALS: BP 163/89
[2022-05-11 06:51] LABS: HEMATOCRIT 31.4 % (36.0-47.0); HEMOGLOBIN 9.6 g/dl (12.0-15.5); MEAN CORPUSCULAR HEMOGLOBIN 30.8 pg (27.0-33.0); MEAN CORPUSCULAR HGB CONC 30.6 g/dl (32.0-36.5); MEAN CORPUSCULAR VOLUME 100.6 fl (80.0-96.0); PLATELET COUNT, AUTOMATED 176 10^3/uL (150-450); RED BLOOD COUNT 3.12 10^6/uL (4.00-5.40); WHITE BLOOD COUNT 16.6 10^3/uL (4.0-10.0)
[2022-05-11 08:28] LABS: CALCIUM LEVEL 9.1 MG/DL (8.8-10.2); CREATININE FOR GFR 1.26 MG/DL (0.55-1.30); GLOMERULAR FILTRATION RATE 43.6 (>39); POTASSIUM SERUM 3.1 MEQ/L (3.5-5.1)
[2022-05-11] MEDS: SENNA 8.6 MG TAB (SENOKOT) PO SCH (09:00)
[2022-05-11] MEDS: DOCUSATE SODIUM 100MG CAPSULE PO SCH ×2 (09:00→21:00)
[2022-05-11] MEDS: MOM 30ML SUSPENSION UDC PO SCH (09:00)
[2022-05-11] MEDS: PANTOPRAZOLE 40MG VIAL IV SCH (09:25)
[2022-05-11] MEDS: VANCOMYCIN HCL 750 MG, VIAL MATE ADAPTER 1 EACH in D5W 250 ML IV SCH (09:25)
[2022-05-11] MEDS: APIXABAN 5 MG TAB (ELIQUIS) PO SCH ×2 (09:25→21:13)
[2022-05-11] MEDS: traMADol 50 MG TAB PO PRN ×2 (09:26→21:13)
[2022-05-11] MEDS: TORSEMIDE 20 MG TAB PO SCH (09:28)
[2022-05-11] MEDS: METOPROLOL TART 25 MG TABLET PO SCH ×2 (09:28→21:14)
[2022-05-11] MEDS: SPIRONOLACTONE 12.5MG PER 1/2 TABLET PO SCH (09:28)
[2022-05-11] MEDS: POTASSIUM CHLORIDE 10MEQ SR TABLET PO SCH (09:29)
[2022-05-11] MEDS: ACETAMINOPHEN TAB 650MG DOSE (2X325MG) PO PRN ×2 (09:29→21:13)
[2022-05-11] MEDS: predniSONE 10 MG TAB PO SCH (09:29)
[2022-05-11] MEDS: **NOTE PATIENT COMMENT** MISC XX SCH ×2 (09:30→21:14)
[2022-05-11] MEDS ORDERED: POTASSIUM CHLORIDE 10% LIQ 20 MEQ/15 ML UDC PO ONE (12:00)
[2022-05-11] MEDS: CEPHALEXIN 500 MG CAP PO SCH ×2 (13:11→17:27)
[2022-05-11 14:15] VITALS: BP 154/84
[2022-05-11] MEDS ORDERED: POTASSIUM CHLORIDE 10MEQ SR TABLET PO ONE ×2 (14:15→16:00)
[2022-05-11] MEDS: LIDOCAINE 5% (LIDODERM) PATCH TD PRN (21:18)
[2022-05-11 22:00] VITALS: BP 153/82
[2022-05-12] MEDS: CEPHALEXIN 500 MG CAP PO SCH ×3 (00:06→12:38)
[2022-05-12] MEDS: IPRATROPIUM 0.5MG/ALBUTEROL 2.5MG INH SOL UD 3ML (DUONEB) NEB SCH ×3 (03:41→11:28)
[2022-05-12 06:00] VITALS: BP 148/83
[2022-05-12 07:26] LABS: HEMATOCRIT 30.1 % (36.0-47.0); HEMOGLOBIN 9.4 g/dl (12.0-15.5); MEAN CORPUSCULAR HEMOGLOBIN 31.4 pg (27.0-33.0); MEAN CORPUSCULAR HGB CONC 31.2 g/dl (32.0-36.5); MEAN CORPUSCULAR VOLUME 100.7 fl (80.0-96.0); PLATELET COUNT, AUTOMATED 170 10^3/uL (150-450); RED BLOOD COUNT 2.99 10^6/uL (4.00-5.40); WHITE BLOOD COUNT 12.6 10^3/uL (4.0-10.0)
[2022-05-12 07:55] LABS: CALCIUM LEVEL 8.9 MG/DL (8.8-10.2); CREATININE FOR GFR 1.18 MG/DL (0.55-1.30); POTASSIUM SERUM 3.5 MEQ/L (3.5-5.1)
[2022-05-12] MEDS: PANTOPRAZOLE 40MG VIAL IV SCH (08:24)
[2022-05-12] MEDS: MOM 30ML SUSPENSION UDC PO SCH (08:24)
[2022-05-12] MEDS: predniSONE 10 MG TAB PO SCH (08:24)
[2022-05-12] MEDS: TORSEMIDE 20 MG TAB PO SCH (08:25)
[2022-05-12] MEDS: APIXABAN 5 MG TAB (ELIQUIS) PO SCH (08:25)
[2022-05-12 08:26] VITALS: BP 148/83
[2022-05-12] MEDS: METOPROLOL TART 25 MG TABLET PO SCH (08:26)
[2022-05-12] MEDS: traMADol 50 MG TAB PO PRN (08:26)
[2022-05-12] MEDS: DOCUSATE SODIUM 100MG CAPSULE PO SCH (08:27)
[2022-05-12] MEDS: SPIRONOLACTONE 12.5MG PER 1/2 TABLET PO SCH (08:27)
[2022-05-12] MEDS: **NOTE PATIENT COMMENT** MISC XX SCH (08:58)
[2022-05-12] MEDS ORDERED: TRAM50TA2 PO (09:36)
[2022-05-12] MEDS ORDERED: CEPH500C PO (09:36)
[2022-05-12] MEDS ORDERED: PRED10TA2 PO (09:36)
[2022-05-12] MEDS ORDERED: HYDR-3363 PO (09:39)
[2022-05-12] MEDS ORDERED: METO25TA PO (13:03)
[2022-05-12] MEDS ORDERED: PRED20TA PO (13:03)
[2022-05-12] MEDS ORDERED: AMOX875T2 PO (13:03)
== END 2022-05-12 13:55 | disposition home health service (06) | DRG 208 ==
LOC: EDBD 09:16 → M ED 09:16 → M ED INP 12:16 → ENRESERV 12:34 → M ICU 13:12 → M MS5PR 05-09 15:40
PROVIDERS: ADMIT Internal Medicine Pulmonary Disease; ATTEND Internal Medicine Nephrology
PROC: 5A1945Z Respiratory Ventilation, 24-96 Consecutive Hours (ICD-10-PCS; principal; 2022-05-05)
PROC: 0BH17EZ Insertion of Endotracheal Airway into Trachea, Via Natural or Artificial Opening (ICD-10-PCS; 2022-05-05)
DX: J96.21 Acute and chronic respiratory failure with hypoxia (principal); I50.33 Acute on chronic diastolic (congestive) heart failure; J15.211 Pneumonia due to Methicillin susceptible Staphylococcus aureus; C34.11 Malignant neoplasm of upper lobe, right bronchus or lung; L97.929 Non-pressure chronic ulcer of unspecified part of left lower leg with unspecified severity; L97.919 Non-pressure chronic ulcer of unspecified part of right lower leg with unspecified severity; J44.1 Chronic obstructive pulmonary disease with (acute) exacerbation; N17.9 Acute kidney failure, unspecified; I13.0 Hypertensive heart and chronic kidney disease with heart failure and stage 1 through stage 4 chronic kidney disease, or unspecified chronic kidney disease; R78.81 Bacteremia; J96.22 Acute and chronic respiratory failure with hypercapnia; K21.9 Gastro-esophageal reflux disease without esophagitis; C50.912 Malignant neoplasm of unspecified site of left female breast; I48.0 Paroxysmal atrial fibrillation; E11.622 Type 2 diabetes mellitus with other skin ulcer; K76.0 Fatty (change of) liver, not elsewhere classified; G47.33 Obstructive sleep apnea (adult) (pediatric); D17.5 Benign lipomatous neoplasm of intra-abdominal organs; M54.9 Dorsalgia, unspecified; F41.1 Generalized anxiety disorder; I87.2 Venous insufficiency (chronic) (peripheral); Z90.49 Acquired absence of other specified parts of digestive tract; F17.200 Nicotine dependence, unspecified, uncomplicated; N18.9 Chronic kidney disease, unspecified; Z79.01 Long term (current) use of anticoagulants; Z79.899 Other long term (current) drug therapy; Z88.1 Allergy status to other antibiotic agents; Z91.040 Latex allergy status; Z91.048 Other nonmedicinal substance allergy status; Z92.3 Personal history of irradiation; Z99.81 Dependence on supplemental oxygen; I27.20 Pulmonary hypertension, unspecified; E87.6 Hypokalemia; R53.81 Other malaise; R53.1 Weakness

== ENCOUNTER 2022-05-13 11:28 | Emergency (ER) | payer MEDICARE, OTHER ==
[~2022-05-13] VITALS: Ht 147.3 cm; Wt 74.2 kg
[~2022-05-13 11:28] MED LIST changes: +AMOX875T2 PO; +CEPH500C PO; +COLA1TAB PO; -HEPARIN SOD (PORCINE) 5000UNITS/ML 1ML VIAL/SYRINGE SQ SCH; +HYDR-3363 PO; +ROZE8TAB16 PO; +TRAM50TA2 PO; +VITA400C49 PO
[2022-05-13 15:17] VITALS: BP 108/61
[2022-05-14] MEDS ORDERED: ALBU2.5V10 INH (15:08)
[2022-05-14] MEDS ORDERED: PERC7.5T11 PO (15:08)
[2022-05-14] MEDS ORDERED: TORS20TA2 PO (15:08)
== END 2022-05-13 16:16 | disposition home or self-care (01) ==
LOC: EDBD 11:28 → M ED 11:28
DX: S80.11XA Contusion of right lower leg, initial encounter (principal); S40.021A Contusion of right upper arm, initial encounter; W18.39XA Other fall on same level, initial encounter; Y92.410 Unspecified street and highway as the place of occurrence of the external cause; J44.9 Chronic obstructive pulmonary disease, unspecified; I10 Essential (primary) hypertension; I50.9 Heart failure, unspecified; I48.91 Unspecified atrial fibrillation; K21.9 Gastro-esophageal reflux disease without esophagitis; G47.33 Obstructive sleep apnea (adult) (pediatric); G89.29 Other chronic pain; M54.9 Dorsalgia, unspecified; Z99.81 Dependence on supplemental oxygen; Z79.899 Other long term (current) drug therapy; Z79.891 Long term (current) use of opiate analgesic; Z79.01 Long term (current) use of anticoagulants; Z88.1 Allergy status to other antibiotic agents; Z91.040 Latex allergy status; Z91.048 Other nonmedicinal substance allergy status; F17.200 Nicotine dependence, unspecified, uncomplicated

== ENCOUNTER 2022-05-14 09:49 | Inpatient (IN) | payer MEDICARE, OTHER ==
[~2022-05-14] VITALS: Ht 167.6 cm; Wt 90.9 kg
[2022-05-14] MEDS ORDERED: NS 1,000 ML IV SCH (10:20)
[2022-05-14 11:18] LABS: VENOUS BASE EXCESS 17.6 (-2.0-2.0); VENOUS HCO3 43.3 MEQ/L (23.0-27.0); VENOUS O2 SATURATION 65.6 % (60.0-80.0); VENOUS PARTIAL PRESSURE CO2 57.5 mmHg (38.0-50.0); VENOUS PARTIAL PRESSURE O2 31.6 mmHg (30.0-50.0); VENOUS PH 7.495 UNITS (7.330-7.430); VENOUS STANDARD HCO3 40.8 MEQ/L; VENOUS TOTAL CO2 45.1 MEQ/L (24.0-28.0)
[2022-05-14 11:22] LABS: BASO % 0.1 % (0.0-1.0); HEMATOCRIT 32.2 % (36.0-47.0); HEMOGLOBIN 10.1 g/dl (12.0-15.5); LYMPH # 0.4 10^3/uL (1.5-5.0); LYMPH % 2.2 % (24.0-44.0); MEAN CORPUSCULAR HEMOGLOBIN 31.1 pg (27.0-33.0); MEAN CORPUSCULAR HGB CONC 31.4 g/dl (32.0-36.5); MEAN CORPUSCULAR VOLUME 99.1 fl (80.0-96.0); MONO # 0.8 10^3/uL (0.0-0.8); MONO % 4.6 % (2.0-8.0); NEUTROPHILS # 15.8 10^3/uL (1.5-8.5); NEUTROPHILS % 92.1 % (36.0-66.0); PLATELET COUNT, AUTOMATED 246 10^3/uL (150-450); RED BLOOD COUNT 3.25 10^6/uL (4.00-5.40); WHITE BLOOD COUNT 17.1 10^3/uL (4.0-10.0)
[2022-05-14 12:08] LABS: RSV AMPLIFICATION NEGATIVE (NEGATIVE)
[2022-05-14 12:18] LABS: ALBUMIN 3.2 GM/DL (3.2-5.2); BILIRUBIN,DIRECT 0.5 MG/DL (0.0-0.2); CALCIUM LEVEL 8.8 MG/DL (8.8-10.2); CREATININE FOR GFR 1.26 MG/DL (0.55-1.30); GLOMERULAR FILTRATION RATE 43.6 (>39); POTASSIUM SERUM 3.4 MEQ/L (3.5-5.1); THYROID STIMULATING HORMONE 0.686 uIU/ML (0.358-3.740); TOTAL PROTEIN 6.1 GM/DL (6.4-8.2)
[2022-05-14] MEDS ORDERED: ONDANSETRON 4MG 2ML VIAL IV ONE (12:25)
[2022-05-14] MEDS ORDERED: MORPHINE 2 MG/ML 1ML VIAL IV PRN (12:25)
[2022-05-14] MEDS ORDERED: ISOVUE-370 76% 100ML VIAL As Ordered ONE (12:32)
[2022-05-14] MEDS ORDERED: ACETAMINOPHEN TAB 650MG DOSE (2X325MG) PO PRN (13:45)
[2022-05-14 14:17] LABS: RBC, URINE NONE SEEN /hpf (0-3); SQUAMOUS EPITHELIAL CELL URINE MOD AMOUNT /hpf (SMALL AMT)
[2022-05-14 14:18] LABS: BACTERIA, URINE SMALL AMOUNT; HYALINE CAST, URINE NONE SEEN /lpf (0-1); MUCUS, URINE SMALL AMOUNT (NEGATIVE); YEAST, URINE SMALL AMOUNT
[2022-05-14] MEDS ORDERED: POTASSIUM CHLORIDE 10MEQ SR TABLET PO ONE (14:35)
[2022-05-14] MEDS ORDERED: NICOTINE 21MG/24HR 1 EA TRANSDERMAL TD ONE (14:40)
[2022-05-14] MEDS: NS 1,000 ML IV SCH ×2 (14:56→22:47)
[2022-05-14] MEDS ORDERED: TORS20TA2 PO (15:08)
[2022-05-14] MEDS ORDERED: ALBU2.5V10 INH (15:08)
[2022-05-14] MEDS ORDERED: PERC7.5T11 PO (15:08)
[2022-05-14] MEDS ORDERED: HOME MED LIST COMPLETE! XX SCH (15:10)
[2022-05-14] MEDS ORDERED: GLUCAGON INJ 1MG VIAL SC PRN (15:30)
[2022-05-14] MEDS ORDERED: DEXTROSE 50% 50 ML SYRINGE IV PRN (15:30)
[2022-05-14] MEDS ORDERED: GLUCOSE 4GM CHEW TABLET PO PRN (15:30)
[2022-05-14 16:05] LABS: INR 1.4; PARTIAL THROMBOPLASTIN TIME 25.7 SECONDS (25.9-37.0); PROTHROMBIN TIME 17.6 SECONDS (12.7-14.5)
[2022-05-14 17:40] VITALS: BP 114/59
[2022-05-14 20:05] VITALS: BP 105/46
[2022-05-14] MEDS: ASCORBIC ACID 500 MG TAB PO SCH (20:51)
[2022-05-14] MEDS: guaiFENesin ER 600 MG TAB PO SCH (20:51)
[2022-05-14] MEDS: VITAMIN D 1,000 INTERNATIONAL UNITS TABLET PO SCH (20:51)
[2022-05-14] MEDS ORDERED: METOPROLOL TART 25 MG TABLET PO SCH (21:00)
[2022-05-14] MEDS ORDERED: METOPROLOL TART 12.5 MG PER 1/2 TAB PO ONE (21:00)
[2022-05-15 05:49] VITALS: BP 108/52
[2022-05-15 06:48] LABS: HEMATOCRIT 25.8 % (36.0-47.0); MEAN CORPUSCULAR HEMOGLOBIN 31.1 pg (27.0-33.0); MEAN CORPUSCULAR VOLUME 100.4 fl (80.0-96.0); PLATELET COUNT, AUTOMATED 246 10^3/uL (150-450); RED BLOOD COUNT 2.57 10^6/uL (4.00-5.40); WHITE BLOOD COUNT 16.5 10^3/uL (4.0-10.0)
[2022-05-15 07:18] LABS: ALBUMIN 2.6 GM/DL (3.2-5.2); BILIRUBIN,TOTAL 0.7 MG/DL (0.2-1.0); CALCIUM LEVEL 8.3 MG/DL (8.8-10.2); CREATININE FOR GFR 1.25 MG/DL (0.55-1.30); POTASSIUM SERUM 3.7 MEQ/L (3.5-5.1)
[2022-05-15] MEDS ORDERED: FUROSEMIDE 40MG/4ML VIAL (J1940) IV ONE (08:20)
[2022-05-15 08:23] VITALS: BP 114/64
[2022-05-15] MEDS: guaiFENesin ER 600 MG TAB PO SCH ×2 (08:54→20:24)
[2022-05-15] MEDS: PERCOCET 5MG/325MG TAB PO PRN ×2 (08:55→20:26)
[2022-05-15] MEDS: METOPROLOL TART 12.5 MG PER 1/2 TAB PO SCH ×2 (08:56→20:26)
[2022-05-15] MEDS ORDERED: DOXYCYCLINE HYCLATE 100MG TABLET PO SCH (09:00)
[2022-05-15] MEDS ORDERED: cefTRIAXone SOD 1 GM in D5W MINI-BAG PLUS 50 ML IV SCH (09:00)
[2022-05-15] MEDS: LEVALBUTEROL 1.25 MG/0.5 ML CONCENTRATE NEB NEB PRN (09:05)
[2022-05-15 14:00] VITALS: BP 113/56
[2022-05-15 17:05] LABS: HEMATOCRIT 27.1 % (36.0-47.0); MEAN CORPUSCULAR HGB CONC 29.5 g/dl (32.0-36.5); MEAN CORPUSCULAR VOLUME 101.5 fl (80.0-96.0); PLATELET COUNT, AUTOMATED 257 10^3/uL (150-450); RED BLOOD COUNT 2.67 10^6/uL (4.00-5.40); WHITE BLOOD COUNT 17.2 10^3/uL (4.0-10.0)
[2022-05-15 20:00] VITALS: BP 124/56
[2022-05-15] MEDS: VITAMIN D 1,000 INTERNATIONAL UNITS TABLET PO SCH (20:24)
[2022-05-15] MEDS: ASCORBIC ACID 500 MG TAB PO SCH (20:24)
[2022-05-16 06:00] VITALS: BP 117/52
[2022-05-16] MEDS: PERCOCET 5MG/325MG TAB PO PRN ×2 (06:04→20:42)
[2022-05-16 06:11] LABS: HEMATOCRIT 27.8 % (36.0-47.0); HEMOGLOBIN 8.2 g/dl (12.0-15.5); MEAN CORPUSCULAR HGB CONC 29.5 g/dl (32.0-36.5); MEAN CORPUSCULAR VOLUME 101.8 fl (80.0-96.0); PLATELET COUNT, AUTOMATED 257 10^3/uL (150-450); RED BLOOD COUNT 2.73 10^6/uL (4.00-5.40); WHITE BLOOD COUNT 18.8 10^3/uL (4.0-10.0)
[2022-05-16 06:48] LABS: ALBUMIN 2.6 GM/DL (3.2-5.2); BILIRUBIN,TOTAL 0.6 MG/DL (0.2-1.0); CALCIUM LEVEL 8.5 MG/DL (8.8-10.2); CREATININE FOR GFR 1.07 MG/DL (0.55-1.30); GLOMERULAR FILTRATION RATE 52.7 (>39); POTASSIUM SERUM 3.6 MEQ/L (3.5-5.1); TOTAL PROTEIN 5.3 GM/DL (6.4-8.2)
[2022-05-16] MEDS ORDERED: LevoFLOXacin 500 MG TABLET PO ONE (08:10)
[2022-05-16] MEDS: METOPROLOL TART 12.5 MG PER 1/2 TAB PO SCH ×2 (08:58→20:42)
[2022-05-16] MEDS: guaiFENesin ER 600 MG TAB PO SCH ×2 (08:58→20:41)
[2022-05-16] MEDS ORDERED: LevoFLOXacin 750 MG TABLET PO SCH (09:10)
[2022-05-16] MEDS ORDERED: TORSEMIDE 10 MG TABLET PO SCH (11:45)
[2022-05-16 14:00] VITALS: BP 112/64
[2022-05-16 20:00] VITALS: BP 116/46
[2022-05-16] MEDS: ASCORBIC ACID 500 MG TAB PO SCH (20:41)
[2022-05-16] MEDS: VITAMIN D 1,000 INTERNATIONAL UNITS TABLET PO SCH (20:41)
[2022-05-17 06:00] VITALS: BP 121/61
[2022-05-17 06:25] LABS: HEMATOCRIT 26.4 % (36.0-47.0); HEMOGLOBIN 7.9 g/dl (12.0-15.5); MEAN CORPUSCULAR HEMOGLOBIN 30.3 pg (27.0-33.0); MEAN CORPUSCULAR HGB CONC 29.9 g/dl (32.0-36.5); MEAN CORPUSCULAR VOLUME 101.1 fl (80.0-96.0); PLATELET COUNT, AUTOMATED 211 10^3/uL (150-450); RED BLOOD COUNT 2.61 10^6/uL (4.00-5.40); WHITE BLOOD COUNT 15.1 10^3/uL (4.0-10.0)
[2022-05-17] MEDS: PERCOCET 5MG/325MG TAB PO PRN ×2 (06:51→18:49)
[2022-05-17 07:06] LABS: ALBUMIN 2.6 GM/DL (3.2-5.2); BILIRUBIN,TOTAL 0.7 MG/DL (0.2-1.0); CALCIUM LEVEL 8.5 MG/DL (8.8-10.2); CREATININE FOR GFR 1.09 MG/DL (0.55-1.30); GLOMERULAR FILTRATION RATE 51.5 (>39); POTASSIUM SERUM 3.5 MEQ/L (3.5-5.1); TOTAL PROTEIN 4.9 GM/DL (6.4-8.2)
[2022-05-17] MEDS ORDERED: APIXABAN 5 MG TAB (ELIQUIS) PO SCH (09:00)
[2022-05-17] MEDS ORDERED: TORSEMIDE 20 MG TAB PO SCH (09:00)
[2022-05-17] MEDS: guaiFENesin ER 600 MG TAB PO SCH ×2 (09:46→20:51)
[2022-05-17] MEDS: POTASSIUM CHLORIDE 10MEQ SR TABLET PO SCH (09:47)
[2022-05-17] MEDS: METOPROLOL TART 12.5 MG PER 1/2 TAB PO SCH ×2 (09:47→20:51)
[2022-05-17] MEDS: APIXABAN 2.5 MG TAB (ELIQUIS) PO SCH ×2 (09:47→20:51)
[2022-05-17 14:00] VITALS: BP 119/58
[2022-05-17 18:25] LABS: PERCENT SATURATION 13.4 % (13.2-45.0)
[2022-05-17] MEDS: SENOKOT S TAB PO PRN (19:00)
[2022-05-17 20:00] VITALS: BP 119/61
[2022-05-17 20:28] LABS: FOLATE 6.3 NG/ML
[2022-05-17] MEDS: ASCORBIC ACID 500 MG TAB PO SCH (20:51)
[2022-05-17] MEDS: VITAMIN D 1,000 INTERNATIONAL UNITS TABLET PO SCH (20:51)
[2022-05-18] MEDS: PERCOCET 5MG/325MG TAB PO PRN ×2 (02:34→17:18)
[2022-05-18 05:13] VITALS: BP 118/58
[2022-05-18 06:02] LABS: HEMATOCRIT 25.6 % (36.0-47.0); MEAN CORPUSCULAR HEMOGLOBIN 30.8 pg (27.0-33.0); MEAN CORPUSCULAR HGB CONC 31.3 g/dl (32.0-36.5); MEAN CORPUSCULAR VOLUME 98.5 fl (80.0-96.0); PLATELET COUNT, AUTOMATED 224 10^3/uL (150-450); WHITE BLOOD COUNT 13.6 10^3/uL (4.0-10.0)
[2022-05-18 06:31] LABS: ALBUMIN 2.6 GM/DL (3.2-5.2); BILIRUBIN,TOTAL 0.8 MG/DL (0.2-1.0); CALCIUM LEVEL 8.4 MG/DL (8.8-10.2); CREATININE FOR GFR 1.27 MG/DL (0.55-1.30); GLOMERULAR FILTRATION RATE 43.2 (>39); POTASSIUM SERUM 3.4 MEQ/L (3.5-5.1); TOTAL PROTEIN 5.3 GM/DL (6.4-8.2)
[2022-05-18] MEDS ORDERED: POTASSIUM CHLORIDE 10MEQ SR TABLET PO ONE (07:25)
[2022-05-18] MEDS: APIXABAN 5 MG TAB (ELIQUIS) PO SCH ×2 (08:34→20:17)
[2022-05-18] MEDS: guaiFENesin ER 600 MG TAB PO SCH ×2 (08:34→20:19)
[2022-05-18] MEDS: LevoFLOXacin 750 MG TABLET PO SCH (08:34)
[2022-05-18] MEDS: TORSEMIDE 20 MG TAB PO SCH (08:35)
[2022-05-18] MEDS: METOPROLOL TART 12.5 MG PER 1/2 TAB PO SCH ×2 (08:36→20:19)
[2022-05-18] MEDS: POTASSIUM CHLORIDE 10MEQ SR TABLET PO SCH (08:37)
[2022-05-18] MEDS: SENOKOT S TAB PO PRN (08:46)
[2022-05-18] MEDS: IRON SUCROSE 200 MG in NS 100 ML IV SCH (10:01)
[2022-05-18 14:00] VITALS: BP 112/82
[2022-05-18] MEDS: VITAMIN D 1,000 INTERNATIONAL UNITS TABLET PO SCH (20:19)
[2022-05-18] MEDS: ASCORBIC ACID 500 MG TAB PO SCH (20:19)
[2022-05-18] MEDS: LEVALBUTEROL 1.25 MG/0.5 ML CONCENTRATE NEB NEB PRN (20:33)
[2022-05-18 22:00] VITALS: BP 113/62
[2022-05-19] MEDS: PERCOCET 5MG/325MG TAB PO PRN ×2 (05:15→15:49)
[2022-05-19 06:00] VITALS: BP_SYST 121; BP_SYST 96; BP_DIAS 59; BP_DIAS 72
[2022-05-19 07:20] LABS: HEMATOCRIT 27.8 % (36.0-47.0); HEMOGLOBIN 8.4 g/dl (12.0-15.5); MEAN CORPUSCULAR HEMOGLOBIN 30.3 pg (27.0-33.0); MEAN CORPUSCULAR HGB CONC 30.2 g/dl (32.0-36.5); MEAN CORPUSCULAR VOLUME 100.4 fl (80.0-96.0); PLATELET COUNT, AUTOMATED 231 10^3/uL (150-450); RED BLOOD COUNT 2.77 10^6/uL (4.00-5.40); WHITE BLOOD COUNT 11.8 10^3/uL (4.0-10.0)
[2022-05-19 08:00] LABS: ALBUMIN 2.8 GM/DL (3.2-5.2); BILIRUBIN,TOTAL 0.8 MG/DL (0.2-1.0); CALCIUM LEVEL 8.8 MG/DL (8.8-10.2); CREATININE FOR GFR 1.32 MG/DL (0.55-1.30); GLOMERULAR FILTRATION RATE 41.3 (>39); POTASSIUM SERUM 3.4 MEQ/L (3.5-5.1); TOTAL PROTEIN 5.4 GM/DL (6.4-8.2)
[2022-05-19] MEDS: IRON SUCROSE 200 MG in NS 100 ML IV SCH (10:04)
[2022-05-19] MEDS: SENOKOT S TAB PO PRN ×2 (10:04→21:37)
[2022-05-19] MEDS: TORSEMIDE 20 MG TAB PO SCH (10:05)
[2022-05-19] MEDS: LACTOBACILLUS ACIDOPHILUS CAP (BACID) PO SCH ×2 (10:08→17:09)
[2022-05-19] MEDS: METOPROLOL TART 12.5 MG PER 1/2 TAB PO SCH ×2 (10:08→21:16)
[2022-05-19] MEDS: guaiFENesin ER 600 MG TAB PO SCH ×2 (10:09→21:16)
[2022-05-19] MEDS: POTASSIUM CHLORIDE 10MEQ SR TABLET PO SCH (10:09)
[2022-05-19] MEDS: APIXABAN 5 MG TAB (ELIQUIS) PO SCH ×2 (10:09→21:16)
[2022-05-19 14:00] VITALS: BP 121/73
[2022-05-19] MEDS ORDERED: POTASSIUM CHLORIDE 10MEQ SR TABLET PO ONE (17:10)
[2022-05-19 20:30] VITALS: BP 115/57
[2022-05-19] MEDS: VITAMIN D 1,000 INTERNATIONAL UNITS TABLET PO SCH (21:16)
[2022-05-19] MEDS: ASCORBIC ACID 500 MG TAB PO SCH (21:16)
[2022-05-20] MEDS: PERCOCET 5MG/325MG TAB PO PRN ×3 (01:16→15:46)
[2022-05-20 05:40] VITALS: BP 119/62
[2022-05-20 05:59] LABS: HEMATOCRIT 26.2 % (36.0-47.0); HEMOGLOBIN 7.9 g/dl (12.0-15.5); MEAN CORPUSCULAR HEMOGLOBIN 30.7 pg (27.0-33.0); MEAN CORPUSCULAR HGB CONC 30.2 g/dl (32.0-36.5); MEAN CORPUSCULAR VOLUME 101.9 fl (80.0-96.0); PLATELET COUNT, AUTOMATED 204 10^3/uL (150-450); RED BLOOD COUNT 2.57 10^6/uL (4.00-5.40); WHITE BLOOD COUNT 13.6 10^3/uL (4.0-10.0)
[2022-05-20] MEDS: LevoFLOXacin 750 MG TABLET PO SCH (06:05)
[2022-05-20 06:50] LABS: ALBUMIN 2.7 GM/DL (3.2-5.2); BILIRUBIN,TOTAL 0.9 MG/DL (0.2-1.0); CALCIUM LEVEL 8.5 MG/DL (8.8-10.2); CREATININE FOR GFR 1.32 MG/DL (0.55-1.30); GLOMERULAR FILTRATION RATE 41.3 (>39); MAGNESIUM LEVEL 1.5 MG/DL (1.8-2.4); POTASSIUM SERUM 4.1 MEQ/L (3.5-5.1); TOTAL PROTEIN 5.3 GM/DL (6.4-8.2)
[2022-05-20] MEDS ORDERED: MAG SULF 1GM/100ML (MAG RUN) 1 GM in IV 1 EA IV ONE (07:45)
[2022-05-20] MEDS: guaiFENesin ER 600 MG TAB PO SCH (09:39)
[2022-05-20] MEDS: TORSEMIDE 20 MG TAB PO SCH (09:40)
[2022-05-20] MEDS: APIXABAN 5 MG TAB (ELIQUIS) PO SCH (09:40)
[2022-05-20] MEDS: LACTOBACILLUS ACIDOPHILUS CAP (BACID) PO SCH (09:40)
[2022-05-20] MEDS: POTASSIUM CHLORIDE 10MEQ SR TABLET PO SCH (09:40)
[2022-05-20 09:41] VITALS: BP 111/56
[2022-05-20] MEDS: METOPROLOL TART 12.5 MG PER 1/2 TAB PO SCH (09:41)
[2022-05-20] MEDS: IRON SUCROSE 200 MG in NS 100 ML IV SCH (10:57)
[2022-05-20 13:28] LABS: HEMATOCRIT 27.6 % (36.0-47.0); HEMOGLOBIN 8.4 g/dl (12.0-15.5)
[2022-05-20 14:15] VITALS: BP 118/57
[2022-05-20] MEDS ORDERED: LEVO1TAB40 PO (15:39)
[2022-05-20] MEDS ORDERED: METO1TAB87 PO (15:39)
[2022-05-20] MEDS ORDERED: TORS20TA2 PO (15:39)
== END 2022-05-20 18:40 | disposition home health service (06) | DRG 605 ==
LOC: M ED 09:49 → EDBD 09:49 → M ED INP 13:43 → ENRESERV 15:22 → M MSPAV 17:38
PROVIDERS: ADMIT Internal Medicine; ATTEND Family Medicine
DX: S30.1XXA Contusion of abdominal wall, initial encounter (principal); J96.11 Chronic respiratory failure with hypoxia; I50.30 Unspecified diastolic (congestive) heart failure; C34.11 Malignant neoplasm of upper lobe, right bronchus or lung; L97.329 Non-pressure chronic ulcer of left ankle with unspecified severity; L97.319 Non-pressure chronic ulcer of right ankle with unspecified severity; J98.11 Atelectasis; J95.851 Ventilator associated pneumonia; J44.9 Chronic obstructive pulmonary disease, unspecified; K21.9 Gastro-esophageal reflux disease without esophagitis; Z85.3 Personal history of malignant neoplasm of breast; I48.0 Paroxysmal atrial fibrillation; E11.622 Type 2 diabetes mellitus with other skin ulcer; K76.0 Fatty (change of) liver, not elsewhere classified; I11.0 Hypertensive heart disease with heart failure; G47.33 Obstructive sleep apnea (adult) (pediatric); R26.81 Unsteadiness on feet; D64.9 Anemia, unspecified; W19.XXXA Unspecified fall, initial encounter; Y92.009 Unspecified place in unspecified non-institutional (private) residence as the place of occurrence of the external cause; Y93.9 Activity, unspecified; Y99.8 Other external cause status; M54.9 Dorsalgia, unspecified; I87.2 Venous insufficiency (chronic) (peripheral); M62.81 Muscle weakness (generalized); E87.6 Hypokalemia; Z79.01 Long term (current) use of anticoagulants; Z79.52 Long term (current) use of systemic steroids; Z79.899 Other long term (current) drug therapy; Z88.1 Allergy status to other antibiotic agents; Z92.3 Personal history of irradiation; Z99.81 Dependence on supplemental oxygen; Z91.040 Latex allergy status; Z91.048 Other nonmedicinal substance allergy status; Z90.49 Acquired absence of other specified parts of digestive tract

== ENCOUNTER 2022-07-19 13:54 | Inpatient (IN) | payer MEDICARE, OTHER ==
[~2022-07-19] VITALS: Ht 147.3 cm; Wt 61.5 kg
[~2022-07-19 13:54] MED LIST changes: +ALBU2.5V10 INH; +LEVO1TAB40 PO
[2022-07-19] MEDS ORDERED: FUROSEMIDE 100MG/10ML VIAL (J1940) IV ONE ×2 (14:30→17:55)
[2022-07-19 14:41] LABS: VENOUS BASE EXCESS 13.8 (-2.0-2.0); VENOUS HCO3 44.1 MEQ/L (23.0-27.0); VENOUS O2 SATURATION 77.2 % (60.0-80.0); VENOUS PARTIAL PRESSURE O2 44.3 mmHg (30.0-50.0); VENOUS PH 7.285 UNITS (7.330-7.430); VENOUS STANDARD HCO3 37.1 MEQ/L; VENOUS TOTAL CO2 47.1 MEQ/L (24.0-28.0)
[2022-07-19 14:47] LABS: BASO # 0.1 10^3/uL (0.0-0.2); BASO % 0.7 % (0.0-1.0); EOS # 0.3 10^3/uL (0.0-0.5); EOS % 3.1 % (0.0-3.0); HEMATOCRIT 34.9 % (36.0-47.0); HEMOGLOBIN 10.2 g/dl (12.0-15.5); LYMPH # 0.6 10^3/uL (1.5-5.0); LYMPH % 7.7 % (24.0-44.0); MEAN CORPUSCULAR HEMOGLOBIN 31.6 pg (27.0-33.0); MEAN CORPUSCULAR HGB CONC 29.2 g/dl (32.0-36.5); MONO # 0.6 10^3/uL (0.0-0.8); MONO % 7.7 % (2.0-8.0); NEUTROPHILS # 6.6 10^3/uL (1.5-8.5); NEUTROPHILS % 80.4 % (36.0-66.0); PLATELET COUNT, AUTOMATED 161 10^3/uL (150-450); RED BLOOD COUNT 3.23 10^6/uL (4.00-5.40); WHITE BLOOD COUNT 8.2 10^3/uL (4.0-10.0)
[2022-07-19 15:00] LABS: INR 1.08; PROTHROMBIN TIME 14.2 SECONDS (12.5-14.5)
[2022-07-19 15:32] LABS: CK-MB VALUE MASS 2.7 NG/ML (<3.6); MB/CK RELATIVE INDEX 6.92 (< OR =4)
[2022-07-19 16:12] LABS: ALBUMIN 3.2 GM/DL (3.2-5.2); BILIRUBIN,DIRECT 0.3 MG/DL (0.0-0.2); BILIRUBIN,TOTAL 0.9 MG/DL (0.2-1.0); CALCIUM LEVEL 8.9 MG/DL (8.8-10.2); CREATININE FOR GFR 1.29 MG/DL (0.55-1.30); GLOMERULAR FILTRATION RATE 42.4 (>39); POTASSIUM SERUM 4.2 MEQ/L (3.5-5.1); TOTAL PROTEIN 6.4 GM/DL (6.4-8.2)
[2022-07-19 16:13] LABS: THYROID STIMULATING HORMONE 2.26 uIU/ML (0.358-3.740)
[2022-07-19 16:24] LABS: ABG BASE EXCESS 17.1 (-2.0-2.0); ABG O2 SATURATION 99.5 % (95.0-99.0); ABG PARTIAL PRESSURE O2 202.8 mmHg (75.0-100.0); ABG STANDARD HCO3 41.1 MEQ/L (22.0-26.0); ABG TOTAL CO2 49.9 MEQ/L (23.0-31.0); ABG pH (ARTERIAL) 7.319 UNITS (7.350-7.450)
[2022-07-19 16:25] LABS: ABG PARTIAL PRESSURE CO2 93.6 mmHg (35.0-45.0)
[2022-07-19] MEDS ORDERED: ISOVUE-370 76% 100ML VIAL As Ordered ONE (16:39)
[2022-07-19 18:34] LABS: ABG HCO3 47.9 MEQ/L (22.0-26.0); ABG O2 SATURATION 92.5 % (95.0-99.0); ABG PARTIAL PRESSURE O2 61.8 mmHg (75.0-100.0); ABG TOTAL CO2 50.5 MEQ/L (23.0-31.0); ABG pH (ARTERIAL) 7.377 UNITS (7.350-7.450)
[2022-07-19 18:35] LABS: ABG PARTIAL PRESSURE CO2 83.4 mmHg (35.0-45.0)
[2022-07-19] MEDS ORDERED: SPIR-10 PO (19:23)
[2022-07-19] MEDS ORDERED: ELIQ2.5T PO (19:23)
[2022-07-19] MEDS ORDERED: PATIENT NOTE (19:23)
[2022-07-19] MEDS ORDERED: HOME MED LIST COMPLETE! XX SCH ×2 (19:25→19:50)
[2022-07-19] MEDS ORDERED: TORS20TA2 PO (19:49)
[2022-07-19] MEDS ORDERED: METO25TA4 PO (19:49)
[2022-07-19] MEDS ORDERED: IPRATROPIUM 0.5MG/ALBUTEROL 2.5MG INH SOL UD 3ML (DUONEB) NEB SCH (20:00)
[2022-07-19 20:58] VITALS: BP 95/54
[2022-07-19 21:00] VITALS: BP 107/58
[2022-07-19] MEDS: METOPROLOL TART 25 MG TABLET PO SCH (21:00)
[2022-07-19] MEDS: APIXABAN 2.5 MG TAB (ELIQUIS) PO SCH (21:40)
[2022-07-19] MEDS: DOXYCYCLINE HYCLATE 100 MG in D5W MINI-BAG PLUS 100 ML IV SCH (21:40)
[2022-07-19 22:00] VITALS: BP 107/69
[2022-07-19] MEDS: NICOTINE 21MG/24HR 1 EA TRANSDERMAL TD SCH (22:14)
[2022-07-19 23:00] VITALS: BP 117/63
[2022-07-20] VITALS (14 sets, daily range): BP systolic 105–145; BP diastolic 51–67; O2SAT 97
[2022-07-20] MEDS ORDERED: oxyCODONE 5MG TAB PO ONE (04:00)
[2022-07-20 06:13] LABS: ABG BASE EXCESS 18.3 (-2.0-2.0); ABG HCO3 44.1 MEQ/L (22.0-26.0); ABG O2 SATURATION 98.8 % (95.0-99.0); ABG PARTIAL PRESSURE CO2 58.6 mmHg (35.0-45.0); ABG PARTIAL PRESSURE O2 113.4 mmHg (75.0-100.0); ABG STANDARD HCO3 42.3 MEQ/L (22.0-26.0); ABG TOTAL CO2 45.9 MEQ/L (23.0-31.0); ABG pH (ARTERIAL) 7.494 UNITS (7.350-7.450)
[2022-07-20] MEDS: IPRATROPIUM 0.5MG/ALBUTEROL 2.5MG INH SOL UD 3ML (DUONEB) NEB SCH ×4 (07:13→23:46)
[2022-07-20 07:27] LABS: BASO % 0.4 % (0.0-1.0); EOS # 0.1 10^3/uL (0.0-0.5); EOS % 1.3 % (0.0-3.0); HEMATOCRIT 29.8 % (36.0-47.0); HEMOGLOBIN 8.9 g/dl (12.0-15.5); LYMPH # 0.8 10^3/uL (1.5-5.0); LYMPH % 9.9 % (24.0-44.0); MEAN CORPUSCULAR HEMOGLOBIN 31.4 pg (27.0-33.0); MEAN CORPUSCULAR HGB CONC 29.9 g/dl (32.0-36.5); MEAN CORPUSCULAR VOLUME 105.3 fl (80.0-96.0); MONO # 0.8 10^3/uL (0.0-0.8); MONO % 10.4 % (2.0-8.0); NEUTROPHILS # 6.2 10^3/uL (1.5-8.5); NEUTROPHILS % 77.5 % (36.0-66.0); PLATELET COUNT, AUTOMATED 140 10^3/uL (150-450); RED BLOOD COUNT 2.83 10^6/uL (4.00-5.40)
[2022-07-20 08:05] LABS: CREATININE FOR GFR 1.26 MG/DL (0.55-1.30); GLOMERULAR FILTRATION RATE 43.6 (>39); PHOSPHORUS LEVEL 2.6 MG/DL (2.5-4.9); POTASSIUM SERUM 3.9 MEQ/L (3.5-5.1)
[2022-07-20] MEDS: FUROSEMIDE 40MG/4ML VIAL (J1940) IV SCH ×2 (09:15→17:15)
[2022-07-20] MEDS: APIXABAN 2.5 MG TAB (ELIQUIS) PO SCH ×2 (09:16→21:47)
[2022-07-20] MEDS: METOPROLOL TART 25 MG TABLET PO SCH ×2 (09:16→21:47)
[2022-07-20] MEDS: DOXYCYCLINE HYCLATE 100 MG in D5W MINI-BAG PLUS 100 ML IV SCH ×2 (09:16→21:46)
[2022-07-20] MEDS: NICOTINE 21MG/24HR 1 EA TRANSDERMAL TD SCH (09:17)
[2022-07-20] MEDS: DOCUSATE SODIUM 100MG CAPSULE PO SCH (10:04)
[2022-07-20] MEDS: PERCOCET 5MG/325MG TAB PO PRN ×3 (10:07→21:47)
[2022-07-20] MEDS: PANTOPRAZOLE 40MG TAB (PROTONIX) PO SCH (11:21)
[2022-07-21] VITALS (15 sets, daily range): BP systolic 102–153; BP diastolic 51–111
[2022-07-21] MEDS: PERCOCET 5MG/325MG TAB PO PRN ×2 (05:28→14:52)
[2022-07-21 05:32] LABS: HEMATOCRIT 30.9 % (36.0-47.0); HEMOGLOBIN 9.3 g/dl (12.0-15.5); MEAN CORPUSCULAR HEMOGLOBIN 32.1 pg (27.0-33.0); MEAN CORPUSCULAR HGB CONC 30.1 g/dl (32.0-36.5); MEAN CORPUSCULAR VOLUME 106.6 fl (80.0-96.0); PLATELET COUNT, AUTOMATED 133 10^3/uL (150-450); WHITE BLOOD COUNT 7.6 10^3/uL (4.0-10.0)
[2022-07-21] MEDS: IPRATROPIUM 0.5MG/ALBUTEROL 2.5MG INH SOL UD 3ML (DUONEB) NEB SCH ×3 (05:38→22:52)
[2022-07-21] MEDS ORDERED: NS 500 ML IV ONE (05:50)
[2022-07-21 06:14] LABS: ABG BASE EXCESS 16.8 (-2.0-2.0); ABG HCO3 45.2 MEQ/L (22.0-26.0); ABG O2 SATURATION 98.4 % (95.0-99.0); ABG PARTIAL PRESSURE O2 115.6 mmHg (75.0-100.0); ABG STANDARD HCO3 40.8 MEQ/L (22.0-26.0); ABG TOTAL CO2 47.6 MEQ/L (23.0-31.0); ABG pH (ARTERIAL) 7.379 UNITS (7.350-7.450)
[2022-07-21 06:30] LABS: ABG PARTIAL PRESSURE CO2 78.3 mmHg (35.0-45.0)
[2022-07-21 06:44] LABS: CALCIUM LEVEL 8.7 MG/DL (8.8-10.2); CREATININE FOR GFR 1.5 MG/DL (0.55-1.30); GLOMERULAR FILTRATION RATE 35.7 (>39); POTASSIUM SERUM 3.9 MEQ/L (3.5-5.1)
[2022-07-21] MEDS: NICOTINE 21MG/24HR 1 EA TRANSDERMAL TD SCH (09:13)
[2022-07-21] MEDS: FUROSEMIDE 40MG/4ML VIAL (J1940) IV SCH (09:14)
[2022-07-21] MEDS: APIXABAN 2.5 MG TAB (ELIQUIS) PO SCH ×2 (09:14→20:09)
[2022-07-21] MEDS: DOXYCYCLINE HYCLATE 100 MG in D5W MINI-BAG PLUS 100 ML IV SCH ×2 (09:14→20:10)
[2022-07-21] MEDS: DOCUSATE SODIUM 100MG CAPSULE PO SCH (09:14)
[2022-07-21] MEDS: predniSONE 20 MG TAB PO SCH (09:14)
[2022-07-21] MEDS: PANTOPRAZOLE 40MG TAB (PROTONIX) PO SCH (09:14)
[2022-07-21] MEDS: METOPROLOL TART 25 MG TABLET PO SCH ×2 (09:15→20:10)
[2022-07-21] MEDS: KCL 10MEQ/100ML SWI (KRUN) 10 MEQ in IV 1 EA IV SCH ×4 (14:25→17:13)
[2022-07-21] MEDS ORDERED: FUROSEMIDE 40MG/4ML VIAL (J1940) IV SCH ×2 (17:00)
[2022-07-21 17:06] LABS: ABG pH (ARTERIAL) 7.415 UNITS (7.350-7.450)
[2022-07-21 17:07] LABS: ABG HCO3 43.6 MEQ/L (22.0-26.0); ABG O2 SATURATION 88.7 % (95.0-99.0); ABG PARTIAL PRESSURE CO2 69.6 mmHg (35.0-45.0); ABG PARTIAL PRESSURE O2 52.8 mmHg (75.0-100.0); ABG STANDARD HCO3 39.7 MEQ/L (22.0-26.0); ABG TOTAL CO2 45.8 MEQ/L (23.0-31.0)
[2022-07-21] MEDS: FUROSEMIDE injection 250 MG in D5W 225 ML IV SCH (17:14)
[2022-07-21] MEDS ORDERED: CALCIUM CARBONATE 500 MG CHEW U/D PO PRN (19:10)
[2022-07-21] MEDS: MORPHINE 2 MG/ML 1ML VIAL IV PRN (20:27)
[2022-07-21] MEDS ORDERED: ACETAMINOPHEN 325 MG TAB PO PRN (21:00)
[2022-07-22] VITALS: BP 111/59
[2022-07-22] MEDS: MORPHINE 2 MG/ML 1ML VIAL IV PRN (03:22)
[2022-07-22 04:00] VITALS: BP 116/59
[2022-07-22 08:00] VITALS: BP 141/60
[2022-07-22 08:04] LABS: BASO % 0.2 % (0.0-1.0); EOS % 0.3 % (0.0-3.0); HEMATOCRIT 32.6 % (36.0-47.0); HEMOGLOBIN 9.9 g/dl (12.0-15.5); LYMPH # 0.7 10^3/uL (1.5-5.0); LYMPH % 7.2 % (24.0-44.0); MEAN CORPUSCULAR HEMOGLOBIN 31.5 pg (27.0-33.0); MEAN CORPUSCULAR HGB CONC 30.4 g/dl (32.0-36.5); MEAN CORPUSCULAR VOLUME 103.8 fl (80.0-96.0); MONO # 0.8 10^3/uL (0.0-0.8); MONO % 8.8 % (2.0-8.0); NEUTROPHILS # 7.8 10^3/uL (1.5-8.5); NEUTROPHILS % 83.2 % (36.0-66.0); PLATELET COUNT, AUTOMATED 163 10^3/uL (150-450); RED BLOOD COUNT 3.14 10^6/uL (4.00-5.40); WHITE BLOOD COUNT 9.4 10^3/uL (4.0-10.0)
[2022-07-22] MEDS: DOCUSATE SODIUM 100MG CAPSULE PO SCH (08:14)
[2022-07-22] MEDS: DOXYCYCLINE HYCLATE 100 MG in D5W MINI-BAG PLUS 100 ML IV SCH (08:14)
[2022-07-22] MEDS: NICOTINE 21MG/24HR 1 EA TRANSDERMAL TD SCH (08:14)
[2022-07-22] MEDS: predniSONE 20 MG TAB PO SCH (08:14)
[2022-07-22] MEDS: APIXABAN 2.5 MG TAB (ELIQUIS) PO SCH ×2 (08:14→20:33)
[2022-07-22] MEDS: PANTOPRAZOLE 40MG TAB (PROTONIX) PO SCH (08:15)
[2022-07-22] MEDS: METOPROLOL TART 25 MG TABLET PO SCH ×2 (08:15→20:33)
[2022-07-22] MEDS: IPRATROPIUM 0.5MG/ALBUTEROL 2.5MG INH SOL UD 3ML (DUONEB) NEB SCH ×3 (08:24→22:42)
[2022-07-22 08:40] LABS: CALCIUM LEVEL 8.9 MG/DL (8.8-10.2); CREATININE FOR GFR 1.92 MG/DL (0.55-1.30); GLOMERULAR FILTRATION RATE 26.8 (>39); POTASSIUM SERUM 3.8 MEQ/L (3.5-5.1)
[2022-07-22] MEDS: PERCOCET 5MG/325MG TAB PO PRN ×2 (08:41→19:03)
[2022-07-22 10:28] LABS: VENOUS BASE EXCESS 16.3 (-2.0-2.0); VENOUS HCO3 44.7 MEQ/L (23.0-27.0); VENOUS O2 SATURATION 97.7 % (60.0-80.0); VENOUS PARTIAL PRESSURE CO2 77.4 mmHg (38.0-50.0); VENOUS PARTIAL PRESSURE O2 104.2 mmHg (30.0-50.0); VENOUS PH 7.379 UNITS (7.330-7.430); VENOUS STANDARD HCO3 40.2 MEQ/L
[2022-07-22 12:00] VITALS: BP 147/80
[2022-07-22 16:00] VITALS: BP 127/58
[2022-07-22] MEDS: FUROSEMIDE injection 250 MG in D5W 225 ML IV SCH (16:22)
[2022-07-22 20:04] VITALS: BP 121/54
[2022-07-22] MEDS: DOXYCYCLINE HYCLATE 100MG TABLET PO SCH (20:33)
[2022-07-23 04:00] VITALS: BP 137/64
[2022-07-23 05:06] LABS: BASO % 0.1 % (0.0-1.0); EOS % 0.1 % (0.0-3.0); HEMATOCRIT 31.8 % (36.0-47.0); HEMOGLOBIN 9.6 g/dl (12.0-15.5); LYMPH # 0.6 10^3/uL (1.5-5.0); LYMPH % 6.2 % (24.0-44.0); MEAN CORPUSCULAR HEMOGLOBIN 31.1 pg (27.0-33.0); MEAN CORPUSCULAR HGB CONC 30.2 g/dl (32.0-36.5); MEAN CORPUSCULAR VOLUME 102.9 fl (80.0-96.0); MONO # 0.6 10^3/uL (0.0-0.8); MONO % 6.4 % (2.0-8.0); NEUTROPHILS # 7.8 10^3/uL (1.5-8.5); NEUTROPHILS % 86.6 % (36.0-66.0); PLATELET COUNT, AUTOMATED 151 10^3/uL (150-450); RED BLOOD COUNT 3.09 10^6/uL (4.00-5.40)
[2022-07-23 05:59] LABS: CALCIUM LEVEL 8.8 MG/DL (8.8-10.2); CREATININE FOR GFR 1.95 MG/DL (0.55-1.30); GLOMERULAR FILTRATION RATE 26.3 (>39); POTASSIUM SERUM 3.7 MEQ/L (3.5-5.1)
[2022-07-23 06:19] LABS: VENOUS BASE EXCESS 15.4 (-2.0-2.0); VENOUS HCO3 42.5 MEQ/L (23.0-27.0); VENOUS O2 SATURATION 98.6 % (60.0-80.0); VENOUS PARTIAL PRESSURE CO2 67.8 mmHg (38.0-50.0); VENOUS PARTIAL PRESSURE O2 139.2 mmHg (30.0-50.0); VENOUS PH 7.415 UNITS (7.330-7.430); VENOUS STANDARD HCO3 39.2 MEQ/L; VENOUS TOTAL CO2 44.6 MEQ/L (24.0-28.0)
[2022-07-23 08:14] VITALS: BP 144/92
[2022-07-23] MEDS: APIXABAN 2.5 MG TAB (ELIQUIS) PO SCH ×2 (08:20→20:20)
[2022-07-23] MEDS: PANTOPRAZOLE 40MG TAB (PROTONIX) PO SCH (08:20)
[2022-07-23] MEDS: METOPROLOL TART 25 MG TABLET PO SCH ×2 (08:20→20:20)
[2022-07-23] MEDS: predniSONE 20 MG TAB PO SCH (08:20)
[2022-07-23] MEDS: DOXYCYCLINE HYCLATE 100MG TABLET PO SCH ×2 (08:20→20:20)
[2022-07-23] MEDS: DOCUSATE SODIUM 100MG CAPSULE PO SCH (08:21)
[2022-07-23] MEDS: NICOTINE 21MG/24HR 1 EA TRANSDERMAL TD SCH (08:23)
[2022-07-23 08:29] VITALS: O2SAT 98
[2022-07-23] MEDS: IPRATROPIUM 0.5MG/ALBUTEROL 2.5MG INH SOL UD 3ML (DUONEB) NEB SCH ×3 (08:32→23:54)
[2022-07-23] MEDS: POTASSIUM CHLORIDE 10MEQ SR TABLET PO SCH ×2 (09:35→20:19)
[2022-07-23] MEDS ORDERED: metOLazone 2.5 MG TAB PO ONE (10:00)
[2022-07-23 12:00] VITALS: BP 115/65
[2022-07-23] MEDS: PERCOCET 5MG/325MG TAB PO PRN (13:20)
[2022-07-23 16:00] VITALS: BP 118/58
[2022-07-23] MEDS: FUROSEMIDE injection 250 MG in D5W 225 ML IV SCH (17:19)
[2022-07-23 20:00] VITALS: BP 138/65
[2022-07-23] MEDS ORDERED: BISACODYL 10 MG SUPP PR PRN (21:30)
[2022-07-23] MEDS: SENNA 8.6 MG TAB (SENOKOT) PO SCH (21:44)
[2022-07-24] VITALS: BP 152/67
[2022-07-24] MEDS: PERCOCET 5MG/325MG TAB PO PRN ×2 (02:39→20:36)
[2022-07-24 04:00] VITALS: BP 151/71
[2022-07-24 04:54] LABS: VENOUS BASE EXCESS 17.9 (-2.0-2.0); VENOUS HCO3 45.4 MEQ/L (23.0-27.0); VENOUS O2 SATURATION 95.3 % (60.0-80.0); VENOUS PARTIAL PRESSURE CO2 69.7 mmHg (38.0-50.0); VENOUS PARTIAL PRESSURE O2 73.7 mmHg (30.0-50.0); VENOUS PH 7.432 UNITS (7.330-7.430); VENOUS STANDARD HCO3 41.9 MEQ/L; VENOUS TOTAL CO2 47.6 MEQ/L (24.0-28.0)
[2022-07-24 05:02] LABS: BASO % 0.1 % (0.0-1.0); EOS % 0.2 % (0.0-3.0); HEMATOCRIT 34.6 % (36.0-47.0); HEMOGLOBIN 10.5 g/dl (12.0-15.5); LYMPH # 0.8 10^3/uL (1.5-5.0); MEAN CORPUSCULAR HEMOGLOBIN 31.3 pg (27.0-33.0); MEAN CORPUSCULAR HGB CONC 30.3 g/dl (32.0-36.5); MONO # 0.9 10^3/uL (0.0-0.8); NEUTROPHILS # 8.1 10^3/uL (1.5-8.5); NEUTROPHILS % 82.5 % (36.0-66.0); PLATELET COUNT, AUTOMATED 176 10^3/uL (150-450); RED BLOOD COUNT 3.36 10^6/uL (4.00-5.40); WHITE BLOOD COUNT 9.8 10^3/uL (4.0-10.0)
[2022-07-24 06:00] LABS: BLOOD UREA NITROGEN 57 MG/DL (7-18); CALCIUM LEVEL 9.4 MG/DL (8.8-10.2); CARBON DIOXIDE LEVEL 49 MEQ/L (21-32); CHLORIDE LEVEL 88 MEQ/L (98-107); CREATININE FOR GFR 1.96 MG/DL (0.55-1.30); GLOMERULAR FILTRATION RATE 26.2 (>39); GLUCOSE, FASTING 107 MG/DL (70-100); POTASSIUM SERUM 4.1 MEQ/L (3.5-5.1); SODIUM LEVEL 136 MEQ/L (136-145)
[2022-07-24] MEDS ORDERED: FLEET OIL RETENTION ENEMA PR PRN (07:40)
[2022-07-24] MEDS: DOCUSATE SODIUM 100MG CAPSULE PO SCH (07:45)
[2022-07-24] MEDS: SENNA 8.6 MG TAB (SENOKOT) PO SCH ×2 (07:45→20:29)
[2022-07-24] MEDS: MIRALAX *UNIT DOSE* 17GM PACKET PO SCH (08:32)
[2022-07-24] MEDS: PANTOPRAZOLE 40MG TAB (PROTONIX) PO SCH (08:33)
[2022-07-24 08:34] VITALS: BP 141/67
[2022-07-24] MEDS: METOPROLOL TART 25 MG TABLET PO SCH ×2 (08:35→20:28)
[2022-07-24] MEDS: APIXABAN 2.5 MG TAB (ELIQUIS) PO SCH ×2 (08:35→20:29)
[2022-07-24] MEDS: DOXYCYCLINE HYCLATE 100MG TABLET PO SCH (08:35)
[2022-07-24] MEDS: predniSONE 20 MG TAB PO SCH (08:35)
[2022-07-24] MEDS: NICOTINE 21MG/24HR 1 EA TRANSDERMAL TD SCH (08:36)
[2022-07-24] MEDS: IPRATROPIUM 0.5MG/ALBUTEROL 2.5MG INH SOL UD 3ML (DUONEB) NEB SCH ×2 (08:44→17:02)
[2022-07-24 12:00] VITALS: BP 138/63
[2022-07-24 16:00] VITALS: BP 156/93
[2022-07-24] MEDS ORDERED: POTASSIUM CHLORIDE 10MEQ SR TABLET PO ONE (16:00)
[2022-07-24] MEDS: FUROSEMIDE injection 250 MG in D5W 225 ML IV SCH (16:34)
[2022-07-24 20:00] VITALS: BP 134/65
[2022-07-25] VITALS (14 sets, daily range): BP systolic 87–134; BP diastolic 54–76
[2022-07-25] MEDS: IPRATROPIUM 0.5MG/ALBUTEROL 2.5MG INH SOL UD 3ML (DUONEB) NEB SCH ×4 (00:11→23:50)
[2022-07-25] MEDS ORDERED: METOPROLOL TART 25 MG TABLET PO ONE (02:00)
[2022-07-25 02:50] LABS: MAGNESIUM LEVEL 1.8 MG/DL (1.8-2.4)
[2022-07-25 05:00] LABS: BASO % 0.1 % (0.0-1.0); EOS % 0.1 % (0.0-3.0); HEMATOCRIT 33.2 % (36.0-47.0); HEMOGLOBIN 10.4 g/dl (12.0-15.5); LYMPH # 0.8 10^3/uL (1.5-5.0); LYMPH % 7.5 % (24.0-44.0); MEAN CORPUSCULAR HEMOGLOBIN 31.5 pg (27.0-33.0); MEAN CORPUSCULAR HGB CONC 31.3 g/dl (32.0-36.5); MEAN CORPUSCULAR VOLUME 100.6 fl (80.0-96.0); MONO # 0.9 10^3/uL (0.0-0.8); MONO % 8.1 % (2.0-8.0); NEUTROPHILS % 83.7 % (36.0-66.0); PLATELET COUNT, AUTOMATED 185 10^3/uL (150-450); WHITE BLOOD COUNT 10.7 10^3/uL (4.0-10.0)
[2022-07-25 05:50] LABS: CREATININE FOR GFR 2.07 MG/DL (0.55-1.30); GLOMERULAR FILTRATION RATE 24.6 (>39); POTASSIUM SERUM 3.6 MEQ/L (3.5-5.1)
[2022-07-25] MEDS ORDERED: POTASSIUM CHLORIDE 10MEQ SR TABLET PO ONE (07:45)
[2022-07-25] MEDS: MIRALAX *UNIT DOSE* 17GM PACKET PO SCH (09:00)
[2022-07-25] MEDS: SENNA 8.6 MG TAB (SENOKOT) PO SCH ×2 (09:00→20:34)
[2022-07-25] MEDS: TORSEMIDE (DEMADEX) 50 MG PER 1/2 TAB PO SCH ×2 (09:00→17:04)
[2022-07-25] MEDS: METOPROLOL TART 25 MG TABLET PO SCH ×2 (09:00→20:32)
[2022-07-25] MEDS: PANTOPRAZOLE 40MG TAB (PROTONIX) PO SCH (09:03)
[2022-07-25] MEDS: DOCUSATE SODIUM 100MG CAPSULE PO SCH (09:05)
[2022-07-25] MEDS: APIXABAN 2.5 MG TAB (ELIQUIS) PO SCH ×2 (09:06→20:35)
[2022-07-25] MEDS: predniSONE 20 MG TAB PO SCH (09:06)
[2022-07-25] MEDS: NICOTINE 21MG/24HR 1 EA TRANSDERMAL TD SCH (09:06)
[2022-07-25] MEDS: SPIRONOLACTONE 25 MG TAB PO SCH (10:00)
[2022-07-25] MEDS: PERCOCET 5MG/325MG TAB PO PRN ×2 (11:39→20:35)
[2022-07-26] VITALS (8 sets, daily range): BP systolic 92–145; BP diastolic 53–69
[2022-07-26 04:49] LABS: HEMATOCRIT 32.1 % (36.0-47.0); LYMPH # 0.5 10^3/uL (1.5-5.0); LYMPH % 6.2 % (24.0-44.0); MEAN CORPUSCULAR HEMOGLOBIN 31.3 pg (27.0-33.0); MEAN CORPUSCULAR HGB CONC 31.2 g/dl (32.0-36.5); MEAN CORPUSCULAR VOLUME 100.3 fl (80.0-96.0); MONO # 0.6 10^3/uL (0.0-0.8); MONO % 7.8 % (2.0-8.0); NEUTROPHILS # 6.8 10^3/uL (1.5-8.5); NEUTROPHILS % 85.6 % (36.0-66.0); PLATELET COUNT, AUTOMATED 171 10^3/uL (150-450); WHITE BLOOD COUNT 7.9 10^3/uL (4.0-10.0)
[2022-07-26 06:45] LABS: CREATININE FOR GFR 2.12 MG/DL (0.55-1.30); GLOMERULAR FILTRATION RATE 23.9 (>39)
[2022-07-26] MEDS: IPRATROPIUM 0.5MG/ALBUTEROL 2.5MG INH SOL UD 3ML (DUONEB) NEB SCH ×3 (07:09→23:51)
[2022-07-26 07:19] LABS: POTASSIUM SERUM 4.4 MEQ/L (3.5-5.1)
[2022-07-26] MEDS: NICOTINE 21MG/24HR 1 EA TRANSDERMAL TD SCH (08:10)
[2022-07-26] MEDS: PANTOPRAZOLE 40MG TAB (PROTONIX) PO SCH (08:10)
[2022-07-26] MEDS: TORSEMIDE (DEMADEX) 50 MG PER 1/2 TAB PO SCH ×2 (08:10→18:10)
[2022-07-26] MEDS: APIXABAN 2.5 MG TAB (ELIQUIS) PO SCH ×2 (08:10→21:04)
[2022-07-26] MEDS: DOCUSATE SODIUM 100MG CAPSULE PO SCH (08:11)
[2022-07-26] MEDS: METOPROLOL TART 25 MG TABLET PO SCH ×2 (08:11→21:04)
[2022-07-26] MEDS: predniSONE 20 MG TAB PO SCH (08:12)
[2022-07-26] MEDS: SPIRONOLACTONE 25 MG TAB PO SCH (08:15)
[2022-07-26] MEDS: SENNA 8.6 MG TAB (SENOKOT) PO SCH ×2 (08:15→21:04)
[2022-07-26] MEDS: MIRALAX *UNIT DOSE* 17GM PACKET PO SCH (08:15)
[2022-07-26] MEDS: PERCOCET 5MG/325MG TAB PO PRN (09:45)
[2022-07-27] VITALS: BP 128/60
[2022-07-27] MEDS: PERCOCET 5MG/325MG TAB PO PRN (01:21)
[2022-07-27 04:00] VITALS: BP 154/72
[2022-07-27 05:34] LABS: HEMATOCRIT 32.3 % (36.0-47.0); HEMOGLOBIN 10.1 g/dl (12.0-15.5); LYMPH # 0.7 10^3/uL (1.5-5.0); LYMPH % 7.4 % (24.0-44.0); MEAN CORPUSCULAR HEMOGLOBIN 31.1 pg (27.0-33.0); MEAN CORPUSCULAR HGB CONC 31.3 g/dl (32.0-36.5); MEAN CORPUSCULAR VOLUME 99.4 fl (80.0-96.0); MONO # 0.8 10^3/uL (0.0-0.8); MONO % 8.1 % (2.0-8.0); NEUTROPHILS # 8.4 10^3/uL (1.5-8.5); PLATELET COUNT, AUTOMATED 172 10^3/uL (150-450); RED BLOOD COUNT 3.25 10^6/uL (4.00-5.40); WHITE BLOOD COUNT 9.9 10^3/uL (4.0-10.0)
[2022-07-27 06:22] LABS: CREATININE FOR GFR 2.01 MG/DL (0.55-1.30); GLOMERULAR FILTRATION RATE 25.4 (>39)
[2022-07-27] MEDS ORDERED: POTASSIUM CHLORIDE 10MEQ SR TABLET PO ONE (06:25)
[2022-07-27] MEDS: IPRATROPIUM 0.5MG/ALBUTEROL 2.5MG INH SOL UD 3ML (DUONEB) NEB SCH (07:41)
[2022-07-27 07:42] VITALS: BP 129/60
[2022-07-27] MEDS: NICOTINE 21MG/24HR 1 EA TRANSDERMAL TD SCH (08:15)
[2022-07-27] MEDS: DOCUSATE SODIUM 100MG CAPSULE PO SCH (08:16)
[2022-07-27] MEDS: TORSEMIDE (DEMADEX) 50 MG PER 1/2 TAB PO SCH (08:16)
[2022-07-27 08:17] VITALS: BP 129/60
[2022-07-27] MEDS: predniSONE 20 MG TAB PO SCH (08:17)
[2022-07-27] MEDS: METOPROLOL TART 25 MG TABLET PO SCH (08:17)
[2022-07-27] MEDS: SENNA 8.6 MG TAB (SENOKOT) PO SCH (08:17)
[2022-07-27] MEDS: APIXABAN 2.5 MG TAB (ELIQUIS) PO SCH (08:17)
[2022-07-27] MEDS: PANTOPRAZOLE 40MG TAB (PROTONIX) PO SCH (08:17)
[2022-07-27] MEDS: MIRALAX *UNIT DOSE* 17GM PACKET PO SCH (08:18)
== END 2022-07-27 13:59 | disposition home health service (06) | DRG 291 ==
LOC: EDBD 13:54 → M ED 13:54 → M ED INP 19:20 → ENRESERV 20:10 → M ICU 20:49 → M PCU 07-26 19:39
PROVIDERS: ADMIT Internal Medicine Critical Care Medicine; ATTEND Internal Medicine
DX: I13.0 Hypertensive heart and chronic kidney disease with heart failure and stage 1 through stage 4 chronic kidney disease, or unspecified chronic kidney disease (principal); J96.21 Acute and chronic respiratory failure with hypoxia; J96.22 Acute and chronic respiratory failure with hypercapnia; I50.43 Acute on chronic combined systolic (congestive) and diastolic (congestive) heart failure; J44.1 Chronic obstructive pulmonary disease with (acute) exacerbation; C34.11 Malignant neoplasm of upper lobe, right bronchus or lung; N17.9 Acute kidney failure, unspecified; L97.329 Non-pressure chronic ulcer of left ankle with unspecified severity; L97.319 Non-pressure chronic ulcer of right ankle with unspecified severity; E87.4 Mixed disorder of acid-base balance; I48.11 Longstanding persistent atrial fibrillation; E66.2 Morbid (severe) obesity with alveolar hypoventilation; F17.210 Nicotine dependence, cigarettes, uncomplicated; G47.33 Obstructive sleep apnea (adult) (pediatric); I27.20 Pulmonary hypertension, unspecified; K21.9 Gastro-esophageal reflux disease without esophagitis; D53.9 Nutritional anemia, unspecified; K75.81 Nonalcoholic steatohepatitis (NASH); G89.29 Other chronic pain; N18.30 Chronic kidney disease, stage 3 unspecified; E11.622 Type 2 diabetes mellitus with other skin ulcer; E11.22 Type 2 diabetes mellitus with diabetic chronic kidney disease; D17.5 Benign lipomatous neoplasm of intra-abdominal organs; M54.9 Dorsalgia, unspecified; Z99.81 Dependence on supplemental oxygen; Z90.49 Acquired absence of other specified parts of digestive tract; Z85.3 Personal history of malignant neoplasm of breast; Z92.3 Personal history of irradiation; Z79.01 Long term (current) use of anticoagulants; Z91.198 Patient's noncompliance with other medical treatment and regimen for other reason; Z68.32 Body mass index [BMI] 32.0-32.9, adult